=== PATIENT | female | born 1940 | race Caucasian/White ===

== ENCOUNTER → 2018-12-29 11:17 | Outpatient (CLI) | payer MEDICARE, SELFPAY ==
--- NOTE | 2018-12-29 11:23 | XR_ITS ---
EXAM: XR lumbar spine 2-3V HISTORY: Left-sided back pain ITS.REASON: LOW BACK PAIN ORDERING PHYSICIAN: Bekah Phan APRN PATIENT AGE: 78 years COMPARISON: None FINDINGS: Normal alignment. No fracture or dislocation. No lytic or blastic change. There is degenerative disc disease at L5-S1 with loss of disc space. Facet arthritic changes are present at L4-L5 and S1. Vascular calcification noted of the aorta. Soft tissue calcification noted posterior to the sacrum on the lateral view and could be due to injection granulomas. There is mild sclerosis of the right SI joint IMPRESSION: Degenerative disc disease with facet arthritic change
== END ==
PROVIDERS: PCP Nurse Practitioner Family; Visit Provider Nurse Practitioner Family
DX: M54.5 Low back pain (principal)
CPT/HCPCS: 72100

== ENCOUNTER 2020-07-25 09:36 | Emergency (ER) | payer MEDICARE, SELFPAY ==
[2020-07-25 09:55] VITALS: BP 146/78; PULSE 86; RESP 17; TEMP 36.6; O2SAT 98; BMI 28.3
--- NOTE | 2020-07-25 09:55 | XR_ITS ---
PROCEDURE: XR LUMBAR SPINE MIN 4V CLINICAL INDICATION: PAIN Back pain COMPARISON: CR XR CHEST 2V from 05/23/2019 FINDINGS: No fracture or dislocation. No lytic or blastic change. There is normal mineralization. There is a mild thoracolumbar curvature convex right. There is mild sclerosis of the SI joints. Degenerative disc disease is present at L5-S1. There is some generalized vascular calcification. Soft tissue calcifications are present and may be due to injection granulomas. Other findings:None. IMPRESSION: Degenerative disc disease L5-S1 Dictated by: Donn Iyer MD 07/25/2020 10:22 Donn Iyer MD in [place] 07/25/2020 10:22
--- NOTE | 2020-07-25 09:59 | HMH.EDUTC ---
[facility] [place] Clinical Impression: Low back pain with sciatica Qualifiers: Chronicity: unspecified Back pain laterality: left Sciatica laterality: sciatica of left side Qualified Code(s): M54.42 - Lumbago with sciatica, left side Disposition: Home, Self-Care Condition on Discharge: Good Instructions: DI for Low Back Pain, Low Back Pain, DI for Sciatica, DI for Back Pain With Sciatica Additional Instructions: *Over the counter Ibuprofen hiro 6 hours with meal as needed for pain/inflammation if your doctor has told you that you can take it *Not additional anti-inflammatory like motrin, aleve, advil with the above amount of ibuprofen. You can still take Tylenol every 4 hours as needed if you need something else for pain * moist heat every 20 minutes 3-4 times a day to affected area *Muscle relaxer every 8 hours as needed for muscle spasms but remember, it WILL cause drowsiness You cannot take it and drive, operate machinery or care for small children. *Keep this area active, no movement leads to more stiffness, However take it easy and avoid heavy lifting pushing or pulling *Follow up with you family doctor if no improvement for further treatment You was given solu medrol injection in the [facility] this may make your blood sugar be elevated for the next few days then should return to normal Make sure to follow up with your Family Doctor for further evaluation and treatment and straight to the ER if any loss of control of bowel or bladder Prescriptions: methocarbamoL [Methocarbamol 500mg Tablet] 500 mg PO BID PRN #10 tab PRN Reason: Muscle Spasm Prescription Printed Referrals: Cate Frederick [Primary Care Provider] - As needed Time of Disposition: 10:27 Medical Decision Making - Edwardo Inquiry Pt receiving controlled substance: No Edwardo was queried for this patient: No Vital Signs: 07/25/20 09:55 07/25/20 10:13 Temperature 97.8 F 97.8 F Temperature Source Oral Pulse Rate 86 Pulse Rate [Left] 86 Respiratory Rate 17 17 Blood Pressure 146/78 H Blood Pressure [Right Arm] 146/78 H Blood Pressure Mean [Right Arm] 100 Blood Pressure Source [Right Arm] Automatic Cuff Blood Pressure Position [Right Arm] Sitting 02 Sat by Pulse Oximetry 98 Orders (Tests/Meds): ORDERS Category Date Time Status XR lumbar spine min 4V Stat Exams 07/25/20 09:55 Taken - Radiology Data #1 Image(s): L-Spine Image Reviewed: Yes I have reviewed radiologist's interpretation Degenerative disc disease L5-S1 Medical Decision Narrative: Medication discussed with pharmacy, patient state that she has taken medication before without complications or reactions [facility] [place] - General Stated complaint: Lower back pain Time Seen by Provider: 07/25/20 09:59 Mode of Arrival: Ambulatory Source of Information: Patient Limitations: No Limitations Description of Symptoms (Recalled from Triage Doc. by RN): lower back pain x 1week HEENT Symptoms (Recalled from RN notes): No Resp Symptoms (Recalled from RN notes): No Skin Symptoms (Recalled from RN notes): No MS Symptoms (Recalled from RN notes): Yes Functional Status (Recalled from RN notes): wnl - History of Present Illness Provider Complaint: Patient state that she has been having pain in her lower back going into left leg that she has been seeing the Chiropractor for State that they told her they thought she had sciatic nerve pain States that it got a little better but last night and this morning it was hurting again so she come in to see if there was something that she could get for it Denies loss of control of bowel or bladder - Related Data Previous Rx's Medication Instructions Recorded methocarbamoL [Methocarbamol 500mg 500 mg PO BID PRN #10 tab 07/25/20 Tablet] Allergies Allergy/AdvReac Type Severity Reaction Status Date / Time Sulfa (Sulfonamide Allergy Unknown Unknown Verified 07/25/20 09:43 Antibiotics) allergy reaction Penicillins Allergy Verified 07/25
[2020-07-25 10:13] VITALS: BP 146/78; PULSE 86; RESP 17; TEMP 36.6; O2SAT 98
== END 2020-07-25 10:47 | disposition home or self-care (01) ==
PROVIDERS: Emergency Provider Nurse Practitioner; PCP Nurse Practitioner Family
DX: M54.42 Lumbago with sciatica, left side (principal); I25.10 Atherosclerotic heart disease of native coronary artery without angina pectoris; E11.9 Type 2 diabetes mellitus without complications; E78.5 Hyperlipidemia, unspecified; I10 Essential (primary) hypertension; F17.210 Nicotine dependence, cigarettes, uncomplicated; Z79.899 Other long term (current) drug therapy
CPT/HCPCS: 72110; 96372; 99202

== ENCOUNTER 2021-03-04 11:45 | Emergency (ER) | payer MEDICARE, SELFPAY ==
[2021-03-04 12:12] VITALS: BP 180/79; PULSE 64; RESP 16; O2SAT 100; BMI 24.3
--- NOTE | 2021-03-04 12:30 | HMH.EDUTC ---
[facility] [place] Clinical Impression: UTI (urinary tract infection) Qualifiers: Urinary tract infection type: acute cystitis Hematuria presence: with hematuria Qualified Code(s): N30.01 - Acute cystitis with hematuria Disposition: Home, Self-Care Condition on Discharge: Good Instructions: Urinary Tract Infection Additional Instructions: Increase fluids, water and not soda or tea. Can drink cranberry juice or cranberry extract. White front to back Wear cotton underwear Empty bladder after intercourse Start antibiotics immediately and make sure you take the full course although you may start to see improvement over the next 48 hours. You can eat yogurt or take probiotics to decrease diarrhea or yeast infection caused by the antibiotic Be sure to follow-up anytime for new or worsening symptoms in 48 hours for wound urine culture results be sure to let you PCP no recent urine for culture so they can request records and ensure that you have appropriate antibiotic if you are not getting better or getting worse. If symptoms worsen or do not improve return or be seen in the ER. Follow-up with primary care this week. Prescriptions: cephALEXin [Cephalexin 500mg Tab] 500 mg PO BID 7 Days #14 tab Prescription Printed Referrals: Cate Frederick [Primary Care Provider] - Time of Disposition: 12:48 Medical Decision Making - Edwardo Inquiry Pt receiving controlled substance: No Vital Signs: 03/04/21 12:12 Pulse Rate [Left] 64 Respiratory Rate 16 Blood Pressure [Right Arm] 180/79 H Blood Pressure Mean [Right Arm] 112 02 Sat by Pulse Oximetry 100 - Lab Data Lab Results 03/04/21 12:21: Urine Color Yellow, Urine Appearance Cloudy, Urine pH 5.0, Ur Specific [place] 1.010, Urine Protein 1+, Urine Glucose (UA) 4+, Urine Ketones Negative, Urine Blood 3+, Urine Nitrate Positive A, Urine Bilirubin Negative, Urine Urobilinogen 0.2, Ur Leukocyte Esterase 1+ A [facility] [place] HPI - General Chief complaint: Urgent Treatment Center Stated complaint: Poss UTI Time Seen by Provider: 03/04/21 12:30 Mode of Arrival: Ambulatory Source of Information: Patient Limitations: No Limitations Description of Symptoms (Recalled from Triage Doc. by RN): pain and burning with urination HEENT Symptoms (Recalled from RN notes): No Resp Symptoms (Recalled from RN notes): No Skin Symptoms (Recalled from RN notes): No MS Symptoms (Recalled from RN notes): No Functional Status (Recalled from RN notes): na - History of Present Illness Provider Complaint: 80 yr old female presents for buning with urination,urgency,freq and pressure for 1 week and becoming worse - Related Data Previous Rx's Medication Instructions Recorded methocarbamoL [Methocarbamol 500mg 500 mg PO BID PRN #10 tab 07/25/20 Tablet] cephALEXin [Cephalexin 500mg Tab] 500 mg PO BID 7 Days #14 tab 03/04/21 Allergies Allergy/AdvReac Type Severity Reaction Status Date / Time Sulfa (Sulfonamide Allergy Unknown Unknown Verified 07/25/20 09:43 Antibiotics) allergy reaction Penicillins Allergy Verified 07/25/20 09:43 - Worker's Comp Is this a Worker's Comp case?: No [facility] History - Hepatitis A Screen Drug use history?: No High risk sexual behaviors?: No History of sexually transmitted infection?: No Currently employed?: No Childcare worker?: No Do you have indoor plumbing?: Yes Do you have electricity?: Yes Attestation statement:: This patient has been screened for Hepatitis A risk factors. I have reviewed the patient's past medical history: Yes Medical History: Reports:: Coronary Artery Disease (stent x2), Diabetes Mellitus Type 2, Hyperlipidemia, Hypertension Denies:: Cancer, Diabetes Mellitus Type 1, Internal Pacemaker, Lung Disease, MRSA, Seizures Other Surgeries: Yes: Coronary Stent. No: Pacemaker Amputation: No Fractures: No - Social History Smoking Status: Never smoker Tobacco Type: cigarettes # Packs/Day (cigarettes): 1 Alcohol Intake: never Occup
[2021-03-04 12:41] LABS: Apearance,Urine Cloudy (Clear); Color,Urine Yellow (Yellow)
[2021-03-04 12:42] LABS: Protein,Urine 1+ (Negative)
[2021-03-04 12:43] LABS: Bilirubin,Urine Negative (Negative); Blood, Urine 3+ (Negative); Glucose,Urine (UA) 4+ (Negative); Ketones,Urine Negative (Negative); UTC Leukocyte Esterase,Urine 1+ (Negative); Urobilinogen,Urine 0.2 EU/dl (0.2)
[2021-03-04 12:44] LABS: UTC Nitrate,Urine Positive (Negative)
[2021-03-04 12:54] VITALS: BP 174/85; PULSE 69; RESP 16; TEMP 36.6
== END 2021-03-04 13:02 | disposition home or self-care (01) ==
PROVIDERS: Emergency Provider Nurse Practitioner Family; PCP Nurse Practitioner Family
DX: N30.01 Acute cystitis with hematuria (principal); I25.10 Atherosclerotic heart disease of native coronary artery without angina pectoris; E78.5 Hyperlipidemia, unspecified; I10 Essential (primary) hypertension
CPT/HCPCS: G0463; 81003; 99202

== ENCOUNTER 2021-03-12 10:39 | Emergency (ER) | payer MEDICARE, SELFPAY ==
[2021-03-12 10:40] VITALS: BP 136/77; PULSE 71; RESP 18; TEMP 36.8; O2SAT 98; BMI 25.9
[2021-03-12 11:39] LABS: Apearance,Urine Clear (Clear); Color,Urine Yellow (Yellow)
[2021-03-12 11:40] LABS: Bilirubin,Urine Negative (Negative); Blood, Urine Trace (Negative); Glucose,Urine (UA) 1000 (Negative); Ketones,Urine Negative (Negative); Protein,Urine Negative (Negative); UTC Leukocyte Esterase,Urine Trace (Negative); UTC Nitrate,Urine Negative (Negative); Urobilinogen,Urine 0.2 EU/dl (0.2)
--- NOTE | 2021-03-12 11:51 | HMH.EDUTC ---
[facility] – [place] Disposition Clinical Impression: UTI (urinary tract infection) Qualifiers: Urinary tract infection type: acute cystitis Hematuria presence: without hematuria Qualified Code(s): N30.00 - Acute cystitis without hematuria Disposition: Home, Self-Care Condition on Discharge: Good Instructions: DI for Urinary Tract Infection (UTI) Additional Instructions: Your urine has been sent for culture. Follow up with Cate Saturday or Saturday for those results. Prescriptions: levoFLOXacin [Levaquin 500mg tab] 500 mg PO DAILY 7 Days #7 tab Transmission Status: Pending to [id number] Referrals: Cate Frederick [Primary Care Provider] - Time of Disposition: 12:02 Medical Decision Making - Edwardo Inquiry Pt receiving controlled substance: No Vital Signs: 03/12/21 10:40 Temperature 98.2 F Temperature Source Oral Pulse Rate [Right] 71 Respiratory Rate 18 Blood Pressure [Right Arm] 136/77 Blood Pressure Mean [Right Arm] 96 02 Sat by Pulse Oximetry 98 - Lab Data Lab results reviewed: Yes: I reviewed the patient's lab results. Lab Results 03/12/21 11:27: Urine Color Yellow, Urine Appearance Clear, Urine pH 5.0, Ur Specific [place] 1.020, Urine Protein Negative, Urine Glucose (UA) 1000, Urine Ketones Negative, Urine Blood Trace, Urine Nitrate Negative, Urine Bilirubin Negative, Urine Urobilinogen 0.2, Ur Leukocyte Esterase Trace Orders (Tests/Meds): ORDERS Category Date Time Status Urine Culture Stat Micro 03/12/21 11:38 Ordered [facility] [place] HPI - General Stated complaint: back hurt;need to urinate freq. Time Seen by Provider: 03/12/21 11:51 Mode of Arrival: Family Vehicle Source of Information: Patient Limitations: No Limitations Description of Symptoms (Recalled from Triage Doc. by RN): Patient c/o unresolved UTI. Patient reports she has been treated for an UTI and just finhished the antibiotic. Patient here today due to symptoms not improving. HEENT Symptoms (Recalled from RN notes): No Resp Symptoms (Recalled from RN notes): No Skin Symptoms (Recalled from RN notes): No MS Symptoms (Recalled from RN notes): No Functional Status (Recalled from RN notes): NA - History of Present Illness Provider Complaint: Patient was here 1 week ago for UTI symptoms. She has pain with urination, frequency. Prior to UTI visit was given 1 pill by PCP, presumably Diflucan. Still has low back pain, vaginal pain, pain with urinating and urinary frequency. Nausea but no vomiting. No fever. No discharge, itching, odor. Onset (ago): week(s) (1) Location: genitals Radiation: back Relieving factors: none Exacerbating factors: none Associated symptoms: malaise, nausea/vomiting Treatments prior to arrival: other (Keflex) - Related Data Previous Rx's Medication Instructions Recorded methocarbamoL [Methocarbamol 500mg 500 mg PO BID PRN #10 tab 07/25/20 Tablet] cephALEXin [Cephalexin 500mg Tab] 500 mg PO BID 7 Days #14 tab 03/04/21 levoFLOXacin [Levaquin 500mg 500 mg PO DAILY 7 Days #7 tab 03/12/21 tab] Allergies Allergy/AdvReac Type Severity Reaction Status Date / Time Sulfa (Sulfonamide Allergy Unknown Unknown Verified 07/25/20 09:43 Antibiotics) allergy reaction Penicillins Allergy Verified 07/25/20 09:43 - Worker's Comp Is this a Worker's Comp case?: No Is this an [facility] Worker's Comp?: No Is this a [place] Worker's Comp?: No [facility] History - Hepatitis A Screen Drug use history?: No High risk sexual behaviors?: No History of sexually transmitted infection?: No Currently employed?: No Childcare worker?: No Do you have indoor plumbing?: Yes Do you have electricity?: Yes Attestation statement:: This patient has been screened for Hepatitis A risk factors. I have reviewed the patient's past medical history: Yes Medical History: Reports:: Coronary Artery Disease (stent x2), Diabetes Mellitus Type 2, Hyperlipidemia, Hypertension Denies:: Cancer, Diabetes Mellitus Type 1,
[2021-03-12 12:08] VITALS: BP 132/71; PULSE 78; RESP 18; TEMP 36.8; O2SAT 98
== END 2021-03-12 12:05 | disposition home or self-care (01) ==
PROVIDERS: Emergency Provider Physician Assistant; PCP Nurse Practitioner Family
DX: N30.00 Acute cystitis without hematuria (principal); I25.10 Atherosclerotic heart disease of native coronary artery without angina pectoris; E11.9 Type 2 diabetes mellitus without complications; I10 Essential (primary) hypertension; E78.5 Hyperlipidemia, unspecified; Z79.899 Other long term (current) drug therapy
CPT/HCPCS: G0463; 81003; 87086; 99202

== ENCOUNTER → 2021-03-28 14:08 | Outpatient (CLI) | payer MEDICARE, SELFPAY | PROVIDERS: Visit Provider Urology | DX: N39.0 Urinary tract infection, site not specified (principal) | CPT/HCPCS: 87086 ==

== ENCOUNTER → 2021-04-11 15:42 | Outpatient (CLI) | payer MEDICARE, SELFPAY | PROVIDERS: Visit Provider Urology | DX: N39.0 Urinary tract infection, site not specified (principal) | CPT/HCPCS: 87086 ==

== ENCOUNTER → 2021-04-19 10:47 | Outpatient (CLI) | payer MEDICARE, SELFPAY | PROVIDERS: Visit Provider Urology | DX: R30.0 Dysuria (principal); Z01.812 Encounter for preprocedural laboratory examination; Z20.822 Contact with and (suspected) exposure to COVID-19 | CPT/HCPCS: U0003 ==

== ENCOUNTER 2021-04-21 08:39 | Day surgery (SDC) | payer MEDICARE, SELFPAY ==
[2021-04-18 11:08] VITALS: BMI 26.4
[2021-04-21 08:57] VITALS: BP 141/50; PULSE 55; RESP 16; TEMP 36.6; O2SAT 100
[2021-04-21 09:37] LABS: POC Glucose,Bedside 193 (70-110)
[2021-04-21 10:24] VITALS: BP 152/75; PULSE 72; RESP 18; TEMP 36.4; O2SAT 99
--- NOTE | 2021-04-21 12:56 | P.OP_ITS ---
Date of procedure: 04/21/21 Pre-op Diagnosis:: Urethral pain Post-op Diagnosis:: Urethra and vaginal pain Procedure performed:: Cystoscopy Surgeon:: Robert Ryan MD Anesthesia: local Estimated blood loss (mL): 0 Clinical Note:: 81-year-old white female with a several week history of discomfort with and without urination. Urine cultures unremarkable for UTIs. Operative findings:: Patient is very tender and sensitive around the vaginal and urethral area. The procedure was very uncomfortable for her. Vaginal examination revealed atrophic changes. Urethra the normal anatomic position without evidence of carbuncle. Cystoscopy revealed a lot of debris in the bladder and incomplete emptying of the bladder was largely full despite patient voiding in the preoperative room. There is no evidence of mucosal abnormalities but the cystoscopy was incomplete due to lack of vision. She was very uncomfortable during the procedure. The bladder neck and urethra were normal. Urethral dilation was not performed due to her significant discomfort with cystoscopy. We discussed the findings today and we discussed her significant tenderness that is out of the norm. We discussed hot tub baths for inflammation as well as anti-inflammatories. Prescription for Pyridium and oxybutynin were given for her frequency and urgency. We will see her back next week for possible bladder installations. Operative note:: Patient taken to the cystoscopy suite after informed consent was obtained. She was placed into the frog-leg position on the stretcher. She was unable to frog- leg very much. She was then prepped and draped in standard surgical fashion and 2% lidocaine placed into the urethra. Prepping and draping and placement of anesthesia were very uncomfortable for her. After 5 minutes the flexible cystoscope introduced into the urethral meatus. Examination revealed no evidence of cystocele or rectocele or urethral abnormality. She was highly sensitive to examination however. The cystoscope was passed into the bladder with again significant amount of discomfort on the patient's part. The bladder showed a lot of debris in the bladder and incomplete emptying despite patient voiding in the preoperative room prior. I cannot visualize the entirety of the bladder. I did not detect any mucosal abnormalities or other abnormality in the portions of the bladder that I could visualize. The bladder neck and urethra were within normal limits. Scope removed. Urethral dilation was not performed due to the patient's discomfort with cystoscopy. We discussed the findings today and I placed her on a course of Pyridium and oxybutynin for her frequency and urgency. We discussed hot tub baths and anti-inflammatories for the discomfort. We will see her back next week for consideration of bladder installations. We will also repeat a bladder scan next week upon her return. Condition: stable Disposition: same day Specimens:: None Complications:: None
== END 2021-04-21 10:52 | disposition home or self-care (01) ==
LOC: OUTP 08:40
PROVIDERS: PCP Nurse Practitioner Family; Visit Provider Urology
DX: N32.89 Other specified disorders of bladder (principal); R30.0 Dysuria; R35.0 Frequency of micturition; R39.15 Urgency of urination; Z87.440 Personal history of urinary (tract) infections; Z88.0 Allergy status to penicillin; Z88.2 Allergy status to sulfonamides; Z79.899 Other long term (current) drug therapy; I25.10 Atherosclerotic heart disease of native coronary artery without angina pectoris; E11.9 Type 2 diabetes mellitus without complications; E78.5 Hyperlipidemia, unspecified; I10 Essential (primary) hypertension; Z86.73 Personal history of transient ischemic attack (TIA), and cerebral infarction without residual deficits
CPT/HCPCS: 52000; 82962

== ENCOUNTER → 2021-04-27 13:11 | Outpatient (CLI) | payer MEDICARE, SELFPAY ==
--- NOTE | 2021-04-27 13:19 | CT_ITS ---
PROCEDURE: CT ABDOMEN PELVIS WO CON CLINICAL INDICATION: uti Difficulty urinating and intermittent left flank pain COMPARISON: No exams were available for comparison TECHNIQUE: Axial images obtained with sagittal and coronal reformats. All CT scans at the facility use one or more dose reduction, viz: automated exposure control, ma/kV adjustment per patient size (including targeted exams where dose is matched to indication, i.e. head), or iterative reconstruction technique. FINDINGS: LOWER THORAX: Atelectatic changes are present in the right middle lobe. Coronary artery calcification and/or stents noted. ABDOMEN & PELVIS: There is mild dilatation of the descending thoracic aorta 3.7 x 3.5 cm. The liver has an unremarkable appearance. There is a hypodense area involving the anterior aspect of the spleen at 2.4 cm with a central calcification and may represent a hemangioma. The adrenal glands are unremarkable. There is pancreatic atrophy. The gallbladder, adrenal glands, and kidneys have an unremarkable nonenhanced appearance. No renal or ureteral calculi. No hydronephrosis. There is a mild amount of retained colonic feces. There is pancolonic diverticulosis but no evidence of diverticulitis. No evidence of appendicitis. No intestinal obstruction or free air. Prior hysterectomy. There is an air-fluid level within the urinary bladder. No focal inflammatory change or fluid collections are evident. There is a mildly prominent ventral abdominal wall hernia containing fat which extends to the left para ventral aspect of the abdomen. This is approximately 9 cm inferior to the umbilicus. The hernia orifice measures 3.6 cm No acute bony findings. There are mild degenerative changes of the SI joints in symphysis pubis. IMPRESSION: 1. Air-fluid level within the urinary bladder. This could be due to recent instrumentation/catheterization. Infection or vesico enteric fistula would be included in the differential diagnosis. 2. Hypodensity of the spleen which may be due to a hemangioma. 3. Pancolonic diverticulosis with no evidence of diverticulitis. 4. Mildly prominent infraumbilical ventral abdominal wall hernia containing fat Dictated by: Donn Iyer MD 04/28/2021 13:00 Donn Iyer MD in [place] 04/28/2021 13:00
== END ==
PROVIDERS: PCP Nurse Practitioner Family; Visit Provider Urology
DX: N39.0 Urinary tract infection, site not specified (principal); R30.0 Dysuria
CPT/HCPCS: 74176

== ENCOUNTER → 2021-05-10 11:04 | Outpatient (CLI) | payer MEDICARE, SELFPAY | PROVIDERS: Visit Provider Urology | DX: R30.0 Dysuria (principal); Z01.812 Encounter for preprocedural laboratory examination; Z20.822 Contact with and (suspected) exposure to COVID-19 | CPT/HCPCS: C9803; U0003; U0005 ==

== ENCOUNTER 2021-05-12 09:58 | Day surgery (SDC) | payer MEDICARE, SELFPAY ==
[2021-05-10 12:56] VITALS: BMI 25.0
[2021-05-12] VITALS (8 sets, daily range): BP systolic 118–166; BP diastolic 53–83; PULSE 44–62; RESP 14–18; TEMP 36.1–36.5; O2SAT 93–97
[2021-05-12 11:08] LABS: POC Glucose,Bedside 139 (70-110)
--- NOTE | 2021-05-12 11:24 | P.PN_ITS ---
[facility] Anesthesia Checklist - Patient Identification Patient Identification: Arm Band, Verbal (Name & ) - Structural Data Admitted From: Home Planned Operative Procedure/s: Cystoscopy Consent for Planned Operative Procedure(s) Verified: Yes Verified Documents: Surgical Consent - NPO Status Verified Time NPO: 00:00 - Additional verifications Anesthesia Reactions: No Hx Blood Transfusions: No Blood Transfusion Reaction: No - Cardiovascular Assessment Heart Sounds: S1 & S2 Pulse Rhythm: Regular - Airway Assessment C-Spine Mobility Assessed: Yes TMJ Mobility Assessed: Yes Dentition: Partials - Neurological Assessment Level of Consciousness: Awake, Alert, Appropriate - Anesthesia Plan Anesthesia Risk discussed: Yes ASA Class: III Anesthesia Type: General [facility] History Medical History: Reports:: Coronary Artery Disease, Diabetes Mellitus Type 2, Hyperlipidemia, Hypertension, Transient Ischemic Attacks (TIA), Urinary Tract Infection Denies:: Cancer, Diabetes Mellitus Type 1, Internal Pacemaker, Lung Disease, MRSA, Seizures *Have you ever received a pneumonia vaccine?: Yes *Have you received a flu vaccine this season?: Yes Other Medical History: Reports: Arthritis, Glaucoma. Denies: Blood Transfusion Reaction Anesthesia experience/problems:: no issues Other Surgeries: Yes: No Previous Surgery, Cardiac Catheterization, Colonoscopy, Coronary Stent, Hysterectomy-Total. No: Pacemaker Amputation: No Fractures: No - *Social History Last grade of school completed: High school graduate Smoking Status: Current every day smoker Tobacco Type: cigarettes # Packs/Day (cigarettes): 1 Alcohol Intake: never Substance Use Type: denies use *Occupational Status:: employed Housing: house Household Members: spouse *Travel in the last 8 weeks: None Family Hx:: No significant family history
--- NOTE | 2021-05-12 11:56 | SUR.PHASEI ---
finger stick blood glucose PACU 136
[2021-05-12 12:04] LABS: POC Glucose,Bedside 136 (70-110)
--- NOTE | 2021-05-12 12:55 | P.OP_ITS ---
Date of procedure: 05/12/21 Pre-op Diagnosis:: Irritable voiding symptoms Post-op Diagnosis:: Chronic cystitis Procedure performed:: Cystoscopy Surgeon:: Robert Ryan MD NURSING HOME ADMISSIONS DIRECTOR:: Other (patricia saenz) Anesthesia: MAC Estimated blood loss (mL): 0 Clinical Note:: 81-year-old white female with irritable voiding symptoms of urgency, frequency, difficulty voiding presents for cystoscopic evaluation. Recent CT shows air- fluid level in the bladder. Operative findings:: Bladder showed some chronic inflammatory findings in the bladder but no evidence of fistula. Operative note:: Patient was taken to the operating room after informed consent was obtained. She was placed on the operating table in the supine position and general anesthesia was administered. She was then placed into the dorsal lithotomy position and prepped and draped in the standard surgical fashion. Vaginal examination revealed a small cystocele. 22 Mal passed into the urethra and into the bladder. The bladder showed some tiny debris floating in the bladder. It was irrigated free from the bladder then examined in a systematic fashion. There was evidence of some inflammatory tissue along the right lateral wall as well as the left lateral wall and posteriorly. There is no evidence of a fistula. There is also some squamous metaplasia noted in the floor the bladder. The ureteral orifices in their normal anatomic position with clear efflux of urine. The bladder neck and urethra were within normal limits. After thorough investigation the scope removed and Urojet placed into the urethra. Patient transported to recovery in stable condition. I discussed the findings with the patient and the daughter. We will keep her on the Macrobid and a prescription for Uribel was given. I would like her to stop oxybutynin if she is using it is not listed on her med list today. Patient states she only drinks water and she will continue that. We will see her back in the few weeks in follow-up. Condition: stable Disposition: PACU Specimens:: None Complications:: None
== END 2021-05-12 12:47 | disposition home or self-care (01) ==
LOC: OR 10:02
PROVIDERS: PCP Nurse Practitioner Family; Visit Provider Urology
PROC: 0TJB8ZZ Inspection of Bladder, Via Natural or Artificial Opening Endoscopic (ICD-10-PCS; CPT 52000; principal; 2021-05-12 11:30)
DX: N30.20 Other chronic cystitis without hematuria (principal); I25.10 Atherosclerotic heart disease of native coronary artery without angina pectoris; E11.9 Type 2 diabetes mellitus without complications; E78.5 Hyperlipidemia, unspecified; I10 Essential (primary) hypertension; M19.90 Unspecified osteoarthritis, unspecified site; Z86.73 Personal history of transient ischemic attack (TIA), and cerebral infarction without residual deficits; Z87.440 Personal history of urinary (tract) infections; Z79.899 Other long term (current) drug therapy; Z72.0 Tobacco use; Z88.0 Allergy status to penicillin; Z88.2 Allergy status to sulfonamides
CPT/HCPCS: 52000; 81001; 82962; 87086; 87088; 87186; 99282; J2405

== ENCOUNTER 2021-05-12 18:44 | Emergency (ER) | payer MEDICARE, SELFPAY ==
--- NOTE | 2021-05-12 18:57 | PC.NURSE ---
Took pt to restroom and remained at her side, pt was able to urinate about 50mL of bright yellow urine.
[2021-05-12 19:01] VITALS: BP 146/74; PULSE 67; RESP 18; TEMP 36.9; O2SAT 98; BMI 25.8
--- NOTE | 2021-05-12 19:20 | HMH.EDGENADL ---
ED Disposition Clinical Impression: Urinary retention Disposition: Home, Self-Care Condition on Discharge: Good Instructions: How to Care for Your Bolaños Catheter -- Female Additional Instructions: Follow-up with urology clinic as scheduled on Saturday after 2 days. Return to the emergency room for any new symptoms. Take Tylenol as needed for pain. Referrals: Cate Frederick [Primary Care Provider] - - Critical Care Critical Care Time: No Attestation: On 05/12/21, the high probability of a clinically significant, sudden or life threatening deterioration of the following system(s) required my full and direct attention, intervention and personal management. The time I documented below is in addition to time spent performing reported procedures but includes the following listed in this critical care notation. Medical Decision Making - Medical Records MR Comment: There is no bladder scanner in the emergency room. She still has urinary dysuria. - Edwardo Inquiry Pt receiving controlled substance: No Edwardo was queried for this patient: No Vital Signs: 05/12/21 19:01 05/12/21 20:27 Temperature 98.4 F 98.3 F Temperature Source Oral Oral Pulse Rate 77 Pulse Rate [Right Radial] 67 Respiratory Rate 18 14 Blood Pressure 121/70 Blood Pressure [Right Arm] 146/74 H Blood Pressure Mean [Right Arm] 98 Blood Pressure Source Automatic Cuff Blood Pressure Source [Right Arm] Automatic Cuff Blood Pressure Position Sitting Blood Pressure Position [Right Arm] Sitting 02 Sat by Pulse Oximetry 98 Oxygen Delivery Method Room Air Room Air - Lab Data Lab Results 05/12/21 19:32: Urine Color Yellow, Urine Appearance Cloudy, Urine pH 6.0, Ur Specific [place] 1.020, Urine Protein 1+, Urine Glucose (UA) Negative, Urine Ketones Negative, Urine Blood 3+, Urine Nitrate Positive, Urine Bilirubin Negative, Urine Urobilinogen 0.2, Ur Leukocyte Esterase 2+ A, Urine RBC 20-50, Urine WBC 20-50 A, Ur Squamous Epith Cells Occasional, Urine Bacteria 3+ A Orders (Tests/Meds): ORDERS Category Date Time Status Urine Culture(cathed specimen) Stat Micro 05/12/21 19:32 Received General Adult HPI - General Chief complaint: PAIN Stated complaint: Urinary problems Time Seen by Provider: 05/12/21 19:20 Mode of Arrival: Ambulatory Limitations: No Limitations Description of Symptoms (Recalled from ER Triage Doc. by RN): Pt to ed with c/o pelvic pain and trouble urinating. Pt states she seen the urologist (suzanne) today and had a cystoscopy. Pt states the symptoms have not relieved. Pt reports having trouble urinating for about two weeks. Pt states she does not have pain in her abdomen, just in her pelvis. Denies back pain, nausea and vomiting. - History of Present Illness HPI narrative: 81-year-old female walked to the emergency room with urinary retention. Patient had cystoscopy today under general anesthesia. According to her she has a chronic bladder problem with dysuria and urinary frequency I did try to do the cystoscopy before and all local anesthesia but did not work so they have to do it under general anesthesia today. She went to the restaurant today and she felt she could not urinate. So she came to the emergency room. She was able to urinate 50 cc in the restroom at the emergency room. She still feeling that her bladder is full. She denies any other complaints like chest pain or nausea or vomiting or fever. - Related Data Home Medications Medication Instructions Recorded Confirmed Clopidogrel Bisulfate [Clopidogrel 75 mg PO DAILY 04/21/21 05/12/21 75mg Tab] Empagliflozin [Jardiance] 25 mg PO DAILY 04/21/21 05/12/21 Metoprolol Succinate [Metoprolol 100 mg PO DAILY 04/21/21 05/12/21 Succinate 100mg Tablet*] Nitrofurantoin Monohyd/M-Cryst 100 mg PO BID 04/21/21 05/12/21 [Nitrofurantoin [place]-Mcr 100 mg] Ondansetron [Zuplenz] 4 mg PO DAILY 04/21/21 05/12/21 Pioglitazone HCl [Actos 30mg 30 mg PO DAILY
[2021-05-12 19:40] LABS: Microscopic,Cath URINE MICROSCOPIC (MICROSCOPIC)
[2021-05-12 19:43] LABS: Appearance,Urine/Cath CLOUDY (Clear); Bilirubin,Cath Negative (Negative); Blood, Urine/Cath 3+ (Negative); Color,Urine/Cath YELLOW (Yellow); Glucose,Urine/Cath (UA) Negative (Negative); Ketones,Urine/Cath Negative (Negative); Leukocyte Esterase,Cath 2+ (Negative); Nitrate,Cath POSITIVE (Negative); Protein,Urine/Cath 1+ (Negative); Urobilinogen,Cath 0.2 EU/dl (0.2)
[2021-05-12 20:25] LABS: Bacteria,Urine/Cath 3+ /lpf; RBC,Urine/Cath 20-50 # /hpf (0-3); Squamous Epithelial Ur./Cath Occasional #/hpf (0-5); WBC,Urine/Cath 20-50 #/hpf (0-3)
[2021-05-12 20:27] VITALS: BP 121/70; PULSE 77; RESP 14; TEMP 36.8; O2SAT 99
== END 2021-05-12 20:38 | disposition home or self-care (01) ==
PROVIDERS: Emergency Provider Internal Medicine; PCP Nurse Practitioner Family
DX: N30.00 Acute cystitis without hematuria (principal); B96.1 Klebsiella pneumoniae [K. pneumoniae] as the cause of diseases classified elsewhere; E11.9 Type 2 diabetes mellitus without complications; E78.5 Hyperlipidemia, unspecified; Z79.899 Other long term (current) drug therapy
CPT/HCPCS: 81001; 87086; 87088; 87186; 99282

== ENCOUNTER → 2021-11-20 09:43 | Outpatient (CLI) | payer MEDICARE, SELFPAY ==
--- NOTE | 2021-11-20 09:48 | MR_ITS ---
FINAL REPORT CLINICAL HISTORY: DIZZINESS AND GIDDINESS. INTERMITTENT MEMORY LOSS. FINDINGS: Multiplanar MR imaging of the brain was performed without contrast. There is mild age-appropriate atrophy. There are scattered foci of increased T2 signal in the cerebral white matter that have a nonspecific appearance but likely represent mild chronic ischemic/gliotic changes. There is no evidence of intracranial hemorrhage or mass. No abnormal ventricular dilatation is identified. No abnormal extra-axial fluid collection is seen. No abnormality is seen on the diffusion weighted images. The posterior fossa and brainstem are unremarkable. Normal major vessel vascular flow voids are seen. IMPRESSION: Age-appropriate atrophy and mild chronic ischemic/gliotic changes. No acute intracranial abnormality. Reviewed, Interpreted and Dictated by Bryan Nava III, MD Transcribed by Karolyn Uriostegui Authenticated by Bryan Nava III, MD on 11/20/2021 12:33:[address] [facility]
--- NOTE | 2021-11-20 10:33 | CA_ITS ---
FINAL REPORT TECHNIQUE: Color Doppler, duplex Doppler and shultz scale sonography of the bilateral neck arterial vasculature was performed. Velocities were measured in the carotid arteries. Stenosis evaluation based on the validated velocity criteria. CLINICAL HISTORY: DIZZINESS FINDINGS: The peak systolic velocity of the right common carotid artery is 37 cm/s. The peak systolic velocity of the right internal carotid artery is 138 cm/s and end diastolic velocity 25 cm/s. The ICA/CCA ratio is 3.8. A mild to moderate amount of plaque is present. The right external carotid artery is patent. The right vertebral artery is patent with antegrade flow. The peak systolic velocity of the left common carotid artery is 44 cm/s. The peak systolic velocity of the left internal carotid artery is 79 cm/s and end diastolic velocity 20 cm/s. The ICA/CCA ratio is 1.8. A mild to moderate amount of plaque is present. The left external carotid artery is patent.The left vertebral artery is patent with antegrade flow. IMPRESSION: Less than 50% bilateral carotid stenosis. Bilateral patent vertebral arteries with antegrade flow. Reviewed, Interpreted and Dictated by Bryan Nava III, MD Transcribed by Selin Arroyo Authenticated by Bryan Nava III, MD on 11/20/2021 12:52:21 PM [facility]
== END ==
PROVIDERS: PCP Nurse Practitioner Family; Visit Provider Nurse Practitioner Family
DX: R42 Dizziness and giddiness (principal)
CPT/HCPCS: 70551; 93880

== ENCOUNTER 2022-03-15 11:58 | Emergency (ER) | payer MEDICARE, SELFPAY ==
[2022-03-15 13:14] VITALS: BP 163/76; PULSE 68; RESP 19; TEMP 36.7; O2SAT 99; BMI 24.7
--- NOTE | 2022-03-15 13:55 | HMH.EDUTC ---
[facility] [place] Disposition Clinical Impression: Viral upper respiratory tract infection Disposition: Home, Self-Care Condition on Discharge: Good Instructions: DI for Viral Upper Respiratory Infection -- Adult, DI for COVID-19 (Suspected or Confirmed ), Preventing the Spread of Coronavirus Discharge Instructions Additional Instructions: *Monitor Temp, Over the counter Motrin or Tylenol as directed/as needed Tylenol every 4 hours and Motrin every 6 hours (as long as your family doctor has told you that you can take it) for fever or pain. and straight to ER if unable to lower temp less than 101.0 after medication given *Warm salt water gargles may help to soothe the throat *Throat Lozenges *Warm fluids like tea with honey may help to soothe the throat *Sleep elevated *Humidifier/Vaporizer Follow up IMMEDIATELY for new or worsening symptoms or no Noticeable improvement over the next 48-72 hours. 911 for difficulty breathing or swallowing You were tested for today for COVID19 your test result should be back in the next 24-48 hours, you may check your results on the [facility] My Health portal Make sure to take your Vitamins Vit. C Vit D and Zinc if you can take them Referrals: Cate Frederick [Primary Care Provider] - As needed Time of Disposition: 13:58 Medical Decision Making - Edwardo Inquiry Pt receiving controlled substance: No Edwardo was queried for this patient: No Vital Signs: 03/15/22 13:14 Temperature 98.1 F Temperature Source Oral Pulse Rate [Radial] 68 Respiratory Rate 19 Blood Pressure [Right Arm] 163/76 H Blood Pressure Mean [Right Arm] 105 Blood Pressure Source [Right Arm] Automatic Cuff Blood Pressure Position [Right Arm] Sitting 02 Sat by Pulse Oximetry 99 Orders (Tests/Meds): ORDERS Category Date Time Status Covid-19 Nasal PCR ([facility]) Routine Lab 03/15/22 13:08 Ordered [facility] HPI - General Stated complaint: body aches, cough, weakness Time Seen by Provider: 03/15/22 13:25 Mode of Arrival: Ambulatory Source of Information: Patient Limitations: No Limitations Description of Symptoms (Recalled from Triage Doc. by RN): DOESNT FEEL WELL, COUGHING X 2 DAYS HEENT Symptoms (Recalled from RN notes): No Resp Symptoms (Recalled from RN notes): Yes Skin Symptoms (Recalled from RN notes): No MS Symptoms (Recalled from RN notes): No Functional Status (Recalled from RN notes): N/A - History of Present Illness Provider Complaint: Patient state that she hasnt felt well for the last couple of days and has been feeling achy having nasal congestion and cough States that she was worried that she may have COVID and wanted to get tested - Related Data Home Medications Medication Instructions Recorded Confirmed Clopidogrel Bisulfate [Clopidogrel 75 mg PO DAILY 04/21/21 05/15/21 75mg Tab] Empagliflozin [Jardiance] 25 mg PO DAILY 04/21/21 05/15/21 Metoprolol Succinate [Metoprolol 100 mg PO DAILY 04/21/21 05/15/21 Succinate 100mg Tablet*] Nitrofurantoin Monohyd/M-Cryst 100 mg PO BID 04/21/21 05/15/21 [Nitrofurantoin [place]-Mcr 100 mg] Ondansetron [Zuplenz] 4 mg PO DAILY 04/21/21 05/15/21 Pioglitazone HCl [Actos 30mg 30 mg PO DAILY 04/21/21 05/15/21 tablet] Ramipril 10 mg PO DAILY 04/21/21 05/15/21 Simvastatin [Zocor 20mg] 20 mg PO HS 04/21/21 05/15/21 Sitagliptin Phosphate [Januvia 100 mg PO DAILY 04/21/21 05/15/21 100mg tablet] Allergies Allergy/AdvReac Type Severity Reaction Status Date / Time Sulfa (Sulfonamide Allergy Unknown Unknown Verified 05/15/21 15:38 Antibiotics) allergy reaction Penicillins Allergy Verified 05/15/21 15:38 - Worker's Comp Is this a Worker's Comp case?: No [facility] History - Hepatitis A Screen Attestation statement:: This patient has been screened for Hepatitis A risk factors. I have reviewed the patient's past medical history: Yes Medical History: Reports:: Coronary Artery Disease, Diabetes Mellitus Type 2, Hyperlipidemia, Hypertension
[2022-03-15 14:01] VITALS: BP 163/76; PULSE 68; RESP 19; TEMP 36.7; O2SAT 99
== END 2022-03-15 13:45 | disposition home or self-care (01) ==
PROVIDERS: Emergency Provider Nurse Practitioner; PCP Nurse Practitioner Family
DX: U07.1 COVID-19 (principal)
CPT/HCPCS: 99212; C9803; G0463; U0003; U0005

== ENCOUNTER → 2022-08-15 14:53 | Outpatient (CLI) | payer MEDICARE, SELFPAY ==
[2022-08-15 15:18] LABS: Basophils % 0.7 % (0.1-2.0); Eosinophils # 0.1 K/mm3 (0.0-0.4); Hematocrit 39.1 % (37.0-47.0); Hemoglobin 12.5 g/dL (12.2-16.2); Lymphocytes # 1.6 K/mm3 (0.7-4.5); Lymphocytes % 30.7 % (10-50); Mean Corpuscular HGB Conc 31.9 g/dL (31.8-35.4); Mean Corpuscular Hemoglobin 30.4 pg (27.0-31.2); Mean Corpuscular Volume 95.4 fl (81-99); Mean Platelet Volume 9.6 fl (7.4-10.4); Monocytes # 0.3 K/mm3 (0.1-1.0); Neutrophils # 3.3 K/mm3 (1.8-7.8); Neutrophils % 62.6 % (37.0-80.0); Platelet Count 185 K/mm3 (142-424); Red Cell Distribution Width 14.8 % (11.5-17.5); White Blood Count 5.2 K/mm3 (4.8-10.8)
[2022-08-15 15:38] LABS: Chloride 106 mmol/L (98-107)
[2022-08-15 15:39] LABS: Sodium 141 mmol/L (136-145)
[2022-08-15 15:41] LABS: Blood Urea Nitrogen 16 mg/dl (7-17); Estimated Glomerular Filt Rate 53 ml/min (>60); GFR (African American) 64 ML/MIN (>60)
[2022-08-15 15:42] LABS: Alanine Aminotransferase 17 U/L (12-78); Albumin Level 4.4 g/dl (3.5-5.0); Alkaline Phosphatase 81 U/L (38-126); Aspartate Amino Transferase 30 U/L (14-36); Bilirubin,Direct 0.3 mg/dl (0.0-0.4); Bilirubin,Indirect 0.3 mg/dL (0.0-0.9); Bilirubin,Total 0.6 mg/dl (0.2-1.3); Bilirubin,Unconjugated 0.4 mg/dL (0.0-1.1); Calcium 8.8 mg/dl (8.4-10.2); Carbon Dioxide 26 mmol/L (22.0-30.0); Cholesterol 143 mg/dl (140-200); Glucose 209 mg/dl (74-100); Total Protein,Serum 7.2 g/dl (6.3-8.2); Triglycerides 137 mg/dl (30-150); VLDL Cholesterol 27 mg/dL (0-40)
[2022-08-15 15:43] LABS: Chol/HDL Ratio 2.4 (1-3.5); HDL Cholesterol 59 mg/dl (40-60)
[2022-08-15 15:58] LABS: Free T4 (Free Thyroxine) 1.16 ng/dl (0.78-2.19)
[2022-08-15 16:13] LABS: Thyroid Stimulating Hormone 0.96 uIU/mL (0.465-4.68)
== END ==
PROVIDERS: PCP Nurse Practitioner Family; Visit Provider Nurse Practitioner
DX: I25.10 Atherosclerotic heart disease of native coronary artery without angina pectoris (principal); R94.31 Abnormal electrocardiogram [ECG] [EKG]; Z01.810 Encounter for preprocedural cardiovascular examination; Z95.5 Presence of coronary angioplasty implant and graft; R00.2 Palpitations
CPT/HCPCS: 36415; 80048; 80061; 80076; 83735; 84439; 84443; 85025; 93225; 93226

== ENCOUNTER → 2023-05-17 13:36 | Outpatient (CLI) | payer MEDICARE, SELFPAY | PROVIDERS: PCP Nurse Practitioner Family; Visit Provider Internal Medicine | DX: N39.0 Urinary tract infection, site not specified (principal); B96.1 Klebsiella pneumoniae [K. pneumoniae] as the cause of diseases classified elsewhere | CPT/HCPCS: 36415; 87086; 87088; 87186 ==

== ENCOUNTER 2024-05-03 14:06 | Inpatient (IN) | payer MEDICARE, SELFPAY ==
[2024-05-03] VITALS (10 sets, daily range): BP systolic 103–149; BP diastolic 50–71; PULSE 44–52; RESP 13–22; TEMP 36.4–36.6; O2SAT 93–99; BMI 24.7; BMI 23.9
--- NOTE | 2024-05-03 14:04 | ECG_ITS ---
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
--- NOTE | 2024-05-03 14:09 | ED_ITS ---
<Statement entered by Saul Fajardo MD - 05/03/24 18:26> I was consulted by the HERMINIA, and we discussed the complexity of the problems being addressed. I approved the treatment and management plan for this patient's care in the emergency department, thus performing a substantive portion of the medical decision making. Patient is medically complex with symptomatic dyspnea, ultimately she has multifactorial cause for this, she has unmanaged heart failure of undetermined chronicity, symptomatic bradycardia with a junctional rhythm on EKG, chronic DVT with collateral circulation, questionable urinary tract infection with a very poor specimen in the urine. [id number] ultrasound conducted by Saul Fajardo. Using the phased array probe parasternal long axis was identified, patient has a trace pericardial effusion, decreased ejection fraction. There are adjacent B-lines in the lung williamson to suggest fluid overload in the setting of heart failure. Patient tolerated the procedure well. Images were saved to apartment archive. Images were technically adequate and did not necessitate further imaging. Saul Fajardo MD Discharge Plan Disposition Patient Disposition: Admitted Clinical Impressions Clinical Impression: CHF (congestive heart failure), Pulmonary arterial hypertension, UTI (urinary tract infection), Junctional bradycardia, GTZ (dyspnea on exertion), DVT (deep venous thrombosis) Discharge ED Provider: Saul Fajardo HPI <KIRSTEN Silva - Last Filed: 05/03/24 18:22> General Chief Complaint: Chest Pain Stated Complaint: cp Time Seen by Provider: 05/03/24 14:33 History of Present Illness HPI narrative: Patient presents for evaluation of dyspnea on exertion. Patient has a 2-week history of dyspnea on exertion. Patient has a history remotely of both of stroke and heart attack status post PCI with stent, an aortic heart murmur , and reportedly a new diagnosis of dementia and started on Exelon and donezepil in the last week. Patient reports feeling winded even with light exertion and difficulty catching her breath but denies actual chest pain. She states that she feels like she is smothering .. Related Data Home Medications ?Medication ?Instructions ?Recorded ?Confirmed clopidogrel 75 mg tablet 75 mg PO DAILY Blood thinner 04/21/21 05/03/24 empagliflozin 25 mg tablet 25 mg PO DAILY Diabetes 04/21/21 05/03/24 metoprolol succinate 100 mg 100 mg PO DAILY High blood pressure 04/21/21 05/03/24 tablet,extended release 24 hr ondansetron 4 mg oral soluble film 4 mg PO DAILY Nausea & vomiting 04/21/21 05/03/24 pioglitazone 30 mg tablet 30 mg PO DAILY Diabetes 04/21/21 05/03/24 ramipril 10 mg capsule 10 mg PO DAILY High blood pressure 04/21/21 05/03/24 simvastatin 20 mg tablet 20 mg PO HS Cholesterol 04/21/21 05/03/24 linagliptin 5 mg tablet (Tradjenta) 5 mg PO DAILY 08/15/22 05/03/24 Allergies Allergy/AdvReac Type Severity Reaction Status Date / Time Sulfa (Sulfonamide Allergy Unknown Unknown Verified 08/15/22 13:38 Antibiotics) allergy reaction Penicillins Allergy Verified 08/15/22 13:38 PFSH <KIRSTEN Silva - Last Filed: 05/03/24 18:22> FORMERLY [facility] Disclaimer: The information contained in this section may have been updated after the patient was seen, as this information can be updated by other users. Medical History (Updated 05/03/24 @ 18:22 by KIRSTEN Silva) COPD (chronic obstructive pulmonary disease) Hyperlipidemia Hypertension Aortic heart murmur Coronary artery disease Abnormal electrocardiogram [ECG] [EKG] Encounter for pre-operative cardiovascular clearance Surgical History (Updated 08/15/22 @ 14:07 by Miracle Strange RN) History of coronary artery stent placement Family History (Updated 05/03/24 @ 18:16 by Liliana Peters RN) Father Family history of myocardial infarction Social History Smoking Status: Current some day smoker tobacco type: cigarettes packs per day: 1 second hand exposure: Yes alcohol intake: never substance use type: denies use current occupational status: other Travel in the last 8 weeks: None household members: spouse housing: house current occupation: [employer] current occupational exposures/hazards: No caffeine: Yes <KIRSTEN Silva - Last Filed: 05/03/24 18:22> ROS Obtained: Yes Systems reviewed as appropriate & no additional complaints except as documented Physical Exam <KIRSTEN Silva - Last Filed: 05/03/24 18:22> General General appearance: alert and in no apparent distress Respiratory Respiratory exam: Present normal lung sounds bilaterally Cardiovascular Cardiovascular exam: Present regular rate and normal rhythm Neurological Exam Neurological exam: Present alert, oriented X3 and CN II-XII intact HEART Score <KIRSTEN Silva - Last Filed: 05/03/24 18:22> HEART Score HEART Score assessment performed?: Yes History (anamnesis): Slightly suspicious ECG: Non-specific disturbance Age: >65 years Risk factors: Atherosclerosis history Troponin: </= normal limit HEART Score: 5 Critical Care <KIRSTEN Silva - Last Filed: 05/03/24 18:22> Critical Care Time Critical Care Time: No Medical Decision Making <KIRSTEN Silva - Last Filed: 05/03/24 18:22> Medical Records Medical records reviewed: Yes I reviewed the patient's medical records. Edwardo Inquiry Pt receiving controlled substance: No Vital Signs Vital Signs: 05/03/24 14:09 05/03/24 14:30 05/03/24 15:32 Temperature 97.6 F Temperature Source Oral Pulse Rate 52 L 46 L Pulse Rate [Left Radial] 50 L Respiratory Rate 13 19 22 Blood Pressure 125/69 116/51 L Blood Pressure [Right Arm] 149/71 H Blood Pressure Mean [Right Arm] 97 02 Sat by Pulse Oximetry 98 99 96 Oxygen Delivery Method Room Air Room Air 05/03/24 16:01 05/03/24 16:31 05/03/24 17:31 Temperature Temperature Source Pulse Rate 48 L 44 L 51 L Pulse Rate [Left Radial] Respiratory Rate 14 14 14 Blood Pressure 115/51 L 103/70 L 111/50 L Blood Pressure [Right Arm] Blood Pressure Mean [Right Arm] 02 Sat by Pulse Oximetry 97 99 93 L Oxygen Delivery Method Room Air Room Air Room Air 05/03/24 18:01 Temperature 97.6 F Temperature Source Pulse Rate 46 L Pulse Rate [Left Radial] Respiratory Rate 16 Blood Pressure 111/50 L Blood Pressure [Right Arm] Blood Pressure Mean [Right Arm] 02 Sat by Pulse Oximetry Oxygen Delivery Method Lab Data Lab results reviewed: Yes I reviewed the patient's lab results. Labs: Lab Results 05/03/24 14:10: WBC 6.2, RBC 4.19 L, Hgb 11.6 L, Hct 37.3, MCV 89.0, MCH 27.7, M CHC 31.1 L, RDW 17.3, Plt Count 167, MPV 9.9, Neut % (Auto) 58.6, Lymph % (Auto) 34.4, [place] % (Auto) 5.3, Eos % (Auto) 0.5, Baso % (Auto) 1.2, Neut # (Auto) 3.6, Lymph # (Auto) 2.1, [place] # (Auto) 0.3, Eos # (Auto) 0.0, Baso # (Auto) 0.1, Sodium 138, Potassium 4.6, Chloride 108 H, Carbon Dioxide 21 L, Anion Gap 13.6, BUN 16, Creatinine 1.40 H, Estimated Creat Clear 29, Estimated GFR 36 L, Est GFR ( Amer) 43 L, Glucose 161 H, Calcium 8.3 L, Total Bilirubin 0.7, AST 69 H , ALT 26, Alkaline Phosphatase 82, Troponin I < 0.01, NT-Pro-B Natriuret Pep 5690 H, Total Protein 7.1, Albumin 4.1, Globulin 3.0, Albumin/Globulin Ratio 1.4 05/03/24 17:23: Urine Color Yellow, Urine Appearance Clear, Urine pH 5.5, Ur Specific [place] 1.020, Urine Protein Negative, Urine Glucose (UA) Negative, Urine Ketones Negative, Urine Blood Negative, Urine Nitrate Positive, Urine Bilirubin Negative, Urine Urobilinogen 0.2, Ur Leukocyte Esterase 1+ A, Urine RBC Occasional, Urine WBC 10-20, Ur Squamous Epith Cells 20-50, Urine Bacteria 2+ 05/03/24 14:10 05/03/24 14:10 Response Orders (Tests/Meds): ED MEDICATIONS Generic Name Dose Route Start Last Admin Trade Name Freq PRN Reason Stop Dose Admin Ceftriaxone Sodium 1 gm/ 50 mls @ 100 mls/hr 05/03/24 17:53 Sodium Chloride IV 05/03/24 18:22 ONCE ONE Discontinued Medications Generic Name Dose Route Start Last Admin Trade Name Freq PRN Reason Stop Dose Admin Furosemide 60 mg 05/03/24 16:17 05/03/24 16:33 Furosemide 40mg/4ml Vial IV 05/03/24 16:18 60 mg ONCE ONE Administration Iopamidol 80 ml 05/03/24 16:07 05/03/24 16:11 Iopamidol-370 (76%);100ml Bottle IV 05/03/24 16:08 80 ml ONCE ONE Administration Sodium Chloride 10 ml 05/03/24 16:07 05/03/24 16:11 Sodium Chloride 0.9% 10ml Syr (Rad Only) IV 05/03/24 16:08 10 ml ONCE ONE Administration Sodium Chloride 50 ml 05/03/24 16:07 05/03/24 16:11 0.9 % Sodium Chloride 50 Ml Vial IV 05/03/24 16:08 50 ml ONCE ONE Administration ORDERS Category Date Time Status CT angio chest - dissection Stat Cat Scan 05/03/24 15:48 Completed Chest XR 2 view (NOT portable) [XR chest 2V] Stat Exams 05/03/24 14:32 Completed POCUS Point of Care (ER Only) Stat Exams 05/03/24 15:35 Completed BNP [NT Pro Brain Natriuretic Pep.] Stat Lab 05/03/24 14:10 Completed CBC w/Auto Diff [Complete Blood Count Auto Diff] Stat Lab 05/03/24 14:10 Completed CMP [Comprehensive Metabolic Panel] Stat Lab 05/03/24 14:10 Completed Trop I [Troponin I] Stat Lab 05/03/24 14:10 Completed Troponin I Q3H Lab 05/03/24 17:40 Received Troponin I Q3H Lab 05/03/24 20:45 Ordered UA [Urinalysis and Microscopic] Stat Lab 05/03/24 17:23 Completed Urine Culture Stat Micro 05/03/24 17:23 Received MDM Narrative Medical Decision Narrative: In summary patient is a 84-year-old female who presents to the emergency department for evaluation of dyspnea on exertion additionally patient's daughter relates that patient has had periods of confusion intermittently over the last 2 weeks as well.. Patient is normotensive with a blood pressure of 149/71 bradycardic with a heart rate of 50 on the bedside monitor satting at 98% on room air breathing 13 times a minute upon arrival, afebrile. Physical exam is unremarkable and nonfocal including normal breath sounds normal heart sounds [place] Coma Score 15 no peripheral edema. Differential diagnosis includes CHF versus ACS versus symptomatic bradycardia versus UTI etc. Initial workup will be conducted with plain film chest x-ray twelve-lead EKG hematologic labs urinalysis. Initial interventions were considered however patient has no intervenable findings currently thus is deferred until workup. Initial workup reviewed by me shows that she has a creatinine of 1.4 BUN of 16 and a GFR of 36 all of which are new to the patient. 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 Given that I had an interactive discussion about patient management with cardiology. Patient will be evaluated by cardiology Macario for possible pacemaker or further cardiac workup. I then had an interactive discussion with hospital medicine regarding patient management and she will be admitted and started on Lovenox prophylactically given her renal function and then admitted for further evaluation and care. <Saul Fajardo MD - Last Filed: 05/03/24 15:40> Vital Signs Vital Signs: 05/03/24 14:09 05/03/24 14:30 05/03/24 15:32 Temperature 97.6 F Temperature Source Oral Pulse Rate 52 L 46 L Pulse Rate [Left Radial] 50 L Respiratory Rate 13 19 22 Blood Pressure 125/69 116/51 L Blood Pressure [Right Arm] 149/71 H Blood Pressure Mean [Right Arm] 97 02 Sat by Pulse Oximetry 98 99 96 Oxygen Delivery Method Room Air Room Air 05/03/24 16:01 05/03/24 16:31 05/03/24 17:31 Temperature Temperature Source Pulse Rate 48 L 44 L 51 L Pulse Rate [Left Radial] Respiratory Rate 14 14 14 Blood Pressure 115/51 L 103/70 L 111/50 L Blood Pressure [Right Arm] Blood Pressure Mean [Right Arm] 02 Sat by Pulse Oximetry 97 99 93 L Oxygen Delivery Method Room Air Room Air Room Air 05/03/24 18:01 Temperature 97.6 F Temperature Source Pulse Rate 46 L Pulse Rate [Left Radial] Respiratory Rate 16 Blood Pressure 111/50 L Blood Pressure [Right Arm] Blood Pressure Mean [Right Arm] 02 Sat by Pulse Oximetry Oxygen Delivery Method Lab Data Labs: Lab Results 05/03/24 14:10: WBC 6.2, RBC 4.19 L, Hgb 11.6 L, Hct 37.3, MCV 89.0, MCH 27.7, M CHC 31.1 L, RDW 17.3, Plt Count 167, MPV 9.9, Neut % (Auto) 58.6, Lymph % (Auto) 34.4, [place] % (Auto) 5.3, Eos % (Auto) 0.5, Baso % (Auto) 1.2, Neut # (Auto) 3.6, Lymph # (Auto) 2.1, [place] # (Auto) 0.3, Eos # (Auto) 0.0, Baso # (Auto) 0.1, Sodium 138, Potassium 4.6, Chloride 108 H, Carbon Dioxide 21 L, Anion Gap 13.6, BUN 16, Creatinine 1.40 H, Estimated Creat Clear 29, Estimated GFR 36 L, Est GFR ( Amer) 43 L, Glucose 161 H, Calcium 8.3 L, Total Bilirubin 0.7, AST 69 H , ALT 26, Alkaline Phosphatase 82, Troponin I < 0.01, NT-Pro-B Natriuret Pep 5690 H, Total Protein 7.1, Albumin 4.1, Globulin 3.0, Albumin/Globulin Ratio 1.4 05/03/24 17:23: Urine Color Yellow, Urine Appearance Clear, Urine pH 5.5, Ur Specific [place] 1.020, Urine Protein Negative, Urine Glucose (UA) Negative, Urine Ketones Negative, Urine Blood Negative, Urine Nitrate Positive, Urine Bilirubin Negative, Urine Urobilinogen 0.2, Ur Leukocyte Esterase 1+ A, Urine RBC Occasional, Urine WBC 10-20, Ur Squamous Epith Cells 20-50, Urine Bacteria 2+ Response Orders (Tests/Meds): ED MEDICATIONS Generic Name Dose Route Start Last Admin Trade Name Freq PRN Reason Stop Dose Admin Ceftriaxone Sodium 1 gm/ 50 mls @ 100 mls/hr 05/03/24 17:53 Sodium Chloride IV 05/03/24 18:22 ONCE ONE Discontinued Medications Generic Name Dose Route Start Last Admin Trade Name Freq PRN Reason Stop Dose Admin Furosemide 60 mg 05/03/24 16:17 05/03/24 16:33 Furosemide 40mg/4ml Vial IV 05/03/24 16:18 60 mg ONCE ONE Administration Iopamidol 80 ml 05/03/24 16:07 05/03/24 16:11 Iopamidol-370 (76%);100ml Bottle IV 05/03/24 16:08 80 ml ONCE ONE Administration Sodium Chloride 10 ml 05/03/24 16:07 05/03/24 16:11 Sodium Chloride 0.9% 10ml Syr (Rad Only) IV 05/03/24 16:08 10 ml ONCE ONE Administration Sodium Chloride 50 ml 05/03/24 16:07 05/03/24 16:11 0.9 % Sodium Chloride 50 Ml Vial IV 05/03/24 16:08 50 ml ONCE ONE Administration ORDERS Category Date Time Status CT angio chest - dissection Stat Cat Scan 05/03/24 15:48 Completed Chest XR 2 view (NOT portable) [XR chest 2V] Stat Exams 05/03/24 14:32 Completed POCUS Point of Care (ER Only) Stat Exams 05/03/24 15:35 Completed BNP [NT Pro Brain Natriuretic Pep.] Stat Lab 05/03/24 14:10 Completed CBC w/Auto Diff [Complete Blood Count Auto Diff] Stat Lab 05/03/24 14:10 Completed CMP [Comprehensive Metabolic Panel] Stat Lab 05/03/24 14:10 Completed Trop I [Troponin I] Stat Lab 05/03/24 14:10 Completed Troponin I Q3H Lab 05/03/24 17:40 Received Troponin I Q3H Lab 05/03/24 20:45 Ordered UA [Urinalysis and Microscopic] Stat Lab 05/03/24 17:23 Completed Urine Culture Stat Micro 05/03/24 17:23 Received ECG Data Tracing #1: ECG Narrative: Independently turbid by me rate is 52, rhythm is regular, junctional bradycardia with retrograde P waves. QTc 213, no ST elevation in anatomical contiguous leads.
--- NOTE | 2024-05-03 14:32 | XR_ITS ---
PROCEDURE INFORMATION: Exam: XR Chest Exam date and time: 05/03/2024 2:52 PM Age: 84 years old Clinical indication: Dyspnea TECHNIQUE: Imaging protocol: Radiologic exam of the chest. Views: 2 views. COMPARISON: CR XR CHEST 2V 05/23/2019 2:04 PM FINDINGS: Lungs: No evidence of airspace infiltrate. No pulmonary edema. Pleural spaces: No visible pleural effusion. No pneumothorax. Heart/Mediastinum: Cardiomediastinal silhouette is unchanged from prior exam, accounting for differences in technique. Bones/joints: No evidence of acute osseous abnormality. IMPRESSION: No evidence of acute cardiopulmonary disease.
[2024-05-03 14:42] LABS: Albumin Level 4.1 g/dl (3.5-5.0); Basophils # 0.1 K/mm3 (0-0.2); Basophils % 1.2 % (0.1-2.0); Chloride 108 mmol/L (98-107); Eosinophils % 0.5 % (0.1-12.0); Hematocrit 37.3 % (37.0-47.0); Hemoglobin 11.6 g/dL (12.2-16.2); Lymphocytes # 2.1 K/mm3 (0.7-4.5); Lymphocytes % 34.4 % (10-50); Mean Corpuscular HGB Conc 31.1 g/dL (31.8-35.4); Mean Corpuscular Hemoglobin 27.7 pg (27.0-31.2); Mean Platelet Volume 9.9 fl (7.4-10.4); Monocytes # 0.3 K/mm3 (0.1-1.0); Monocytes % 5.3 % (1.7-9.3); Neutrophils # 3.6 K/mm3 (1.8-7.8); Neutrophils % 58.6 % (37.0-80.0); Platelet Count 167 K/mm3 (142-424); Potassium 4.6 mmoL/L (3.5-5.1); Red Blood Count 4.19 M/mm3 (4.20-5.40); Red Cell Distribution Width 17.3 % (11.5-17.5); Sodium 138 mmol/L (136-145); White Blood Count 6.2 K/mm3 (4.8-10.8)
[2024-05-03 14:45] LABS: Alanine Aminotransferase 26 U/L (12-78); Albumin/Globulin Ratio 1.4 (1.1-1.8); Alkaline Phosphatase 82 U/L (38-126); Anion Gap 13.6 mEq/L (5-15); Aspartate Amino Transferase 69 U/L (14-36); Bilirubin,Total 0.7 mg/dl (0.2-1.3); Blood Urea Nitrogen 16 mg/dl (7-17); Calcium 8.3 mg/dl (8.4-10.2); Carbon Dioxide 21 mmol/L (22.0-30.0); Creatinine Clearance Estimated 29 mL/min (50-200); Estimated Glomerular Filt Rate 36 ml/min (>60); GFR (African American) 43 ML/MIN (>60); Glucose 161 mg/dl (74-100); Total Protein,Serum 7.1 g/dl (6.3-8.2)
[2024-05-03 14:54] LABS: NT Pro Brain Natriuretic Pep. 5690 pg/mL (0-450)
[2024-05-03 15:00] LABS: Troponin I < 0.01 ng/ml (0.00-0.034)
--- NOTE | 2024-05-03 15:48 | CT_ITS ---
PROCEDURE INFORMATION: Exam: CTA Chest With Contrast Exam date and time: 05/03/2024 4:10 PM Age: 84 years old Clinical indication: Dyspnea; Additional info: Dyspnea on exertion TECHNIQUE: Imaging protocol: Computed tomographic angiography of the chest with contrast. Exam focused on the arteries. 3D rendering (Not supervised by radiologist): MIP and/or 3D reconstructed images were created by the technologist. Radiation optimization: All CT scans at this facility use at least one of these dose optimization techniques: automated exposure control; mA and/or kV adjustment per patient size (includes targeted exams where dose is matched to clinical indication); or iterative reconstruction. Contrast material: ISO 370; Contrast volume: 80 ml; Contrast route: INTRAVENOUS (IV); COMPARISON: 1. CR XR CHEST 2V 05/03/2024 2:[address] ABDOMEN PELVIS WO CON 04/27/2021 2:31 PM FINDINGS: Limitations: Respiratory motion artifact severely degrades images, limiting sensitivity of exam. Pulmonary arteries: Dilated central pulmonary arteries compatible with longstanding pulmonary arterial hypertension. No large central pulmonary emboli. Relatively poor opacification of a few subsegmental pulmonary arteries in the basal segments of the bilateral lower lobes, nonspecific in the setting of pulmonary hypertension. No definite pulmonary emboli are demonstrated, noting technically inadequate study to definitively exclude subsegmental pulmonary emboli. Aorta: Fusiform aneurysmal dilation of the descending aorta measuring 4.2 cm in maximal diameter. The partially visualized portion of the descending aorta on 04/27/2021 CT abdomen/pelvis appears grossly unchanged. No prior chest CT available for direct comparison. 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 Lungs: No evidence of acute airspace infiltrate. No pulmonary edema. Calcified pulmonary granuloma in the left lower lobe consistent with chronic sequelae of prior granulomatous disease. Plate-like subsegmental atelectasis/scarring in the right middle lobe Pleural spaces: No pneumothorax. No pleural effusion. Heart: Biatrial enlargement suggestive of diastolic heart dysfunction. Mitral and aortic valve calcifications. No pericardial effusion. Coronary arteries: Three-vessel calcific coronary artery disease. Lymph nodes: No enlarged lymph nodes by CT criteria. Bones/joints: Chronic compression fracture deformity in the L1 with 50% vertebral body height loss and 4 mm retropulsion of the superior endplate, new since most recent available prior imaging performed on 04/27/2021. No evidence of acute osseous abnormality. Soft tissues: Unremarkable. IMPRESSION: 1. No evidence of acute cardiopulmonary disease. No evidence of pulmonary emboli, noting technically inadequate study for definitive exclusion of subsegmental pulmonary emboli. 2. 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 A filling defect/thrombus extends from the left subclavian vein into the left internal jugular vein, age indeterminate. 3. 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 4. Dilated central pulmonary arteries compatible with longstanding pulmonary arterial hypertension. 5. Biatrial enlargement suggestive of diastolic heart dysfunction. 6. Mitral and aortic valve calcifications. 7. Three-vessel calcific coronary artery disease. 8. Chronic compression fracture deformity in the L1 with 50% vertebral body height loss and 4 mm retropulsion of the superior endplate, new since most recent available prior imaging performed on 04/27/2021.
[2024-05-03] MEDS: SODIUM CHLORIDE 0.9% 10ML SYR (RAD ONLY) 10 ML IV (16:11)
[2024-05-03] MEDS: 0.9 % SODIUM CHLORIDE 50 ML VIAL IV (16:11)
[2024-05-03] MEDS: IOPAMIDOL-370 (76%);100ML BOTTLE 80 ML IV (16:11)
[2024-05-03] MEDS: FUROSEMIDE 40MG/4ML VIAL 60 MG IV (16:33)
--- NOTE | 2024-05-03 17:24 | PC.NURSE ---
paged for pt
[2024-05-03 17:27] LABS: Microscopic, Urine URINE MICROSCOPIC (MICROSCOPIC)
--- NOTE | 2024-05-03 17:31 | PC.NURSE ---
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
[2024-05-03 17:33] LABS: Appearance,Urine CLEAR (Clear); Bilirubin,Urine Negative (Negative); Blood, Urine Negative (Negative); Color,Urine YELLOW (Yellow); Glucose,Urine (UA) Negative (Negative); Ketones,Urine Negative (Negative); Leukocyte Esterase,Urine 1+ (Negative); Nitrate,Urine POSITIVE (Negative); PH,Urine 5.5 (5.0-8.5); Protein,Urine Negative (Negative); Urobilinogen,Urine 0.2 EU/dl (0.2)
[2024-05-03 17:40] LABS: Bacteria,Urine 2+ /lpf; RBC,Urine Occasional #/hpf (0-3); Squamous Epithelial Cell,Urine 20-50 #/hpf (0-5)
--- NOTE | 2024-05-03 17:41 | PC.NURSE ---
troponin collected and sent to LAB
[2024-05-03] MEDS: CEFTRIAXONE 1 GM 1 GM in 0.9 % SODIUM CHLORIDE 50 ML IV (18:22)
[2024-05-03 18:30] LABS: Hemoglobin A1C 6.8 % (4.0-6.0)
[2024-05-03 18:38] LABS: Troponin I < 0.01 ng/ml (0.00-0.034)
[2024-05-03] MEDS: ATORVASTATIN 10MG TABLET 10 MG PO (20:39)
[2024-05-03] MEDS: DONEPEZIL 5MG TAB 5 MG PO (20:39)
[2024-05-03] MEDS: AMITRIPTYLINE 50MG TABLET 50 MG PO (20:40)
--- NOTE | 2024-05-03 20:48 | P.HP_ITS ---
History of Present Illness *Admission Date: 05/03/24 *Reason for visit:: Shortness of breath dizziness with abnormal heart rate *History of present illness: This 84-year-old patient who lives alone, noted over the past 2 weeks that on arising her ears would get hot she would get dizzy and feel weak. This would improve and she was able to do things but became more short of breath. 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 Dr. Ovalle spoke with the ER physician and agreed that she needed to be admitted. With plan for cardiology consult and potential echocardiogram in the a.m.. Patient presently in the ICU in no distress alert oriented and eating without any difficulty. On monitor still shows rate of junctional at 55 bpm, patient asymptomatic while lying in bed with head up [facility] Disclaimer: The information contained in this section may have been updated after the patient was seen, as this information can be updated by other users. Medical History (Updated 05/04/24 @ 14:39 by Bonnie Roldan APRN) Abnormal echocardiogram Diabetes mellitus Symptomatic bradycardia Dizziness Shortness of Breath Atypical angina COPD (chronic obstructive pulmonary disease) Hyperlipidemia Hypertension Aortic heart murmur Coronary artery disease Abnormal electrocardiogram [ECG] [EKG] Encounter for pre-operative cardiovascular clearance Surgical History History of coronary artery stent placement Family History Father Family history of myocardial infarction Social History Smoking Status: Current some day smoker tobacco type: cigarettes packs per day: 1 second hand exposure: Yes alcohol intake: never substance use type: denies use current occupational status: other Travel in the last 8 weeks: None household members: spouse housing: house current occupation: [employer] current occupational exposures/hazards: No caffeine: Yes Review of Systems Review of Systems Review of systems:: pertinent systems reviewed and negative unless documented below Review of systems (narrative): Old records have been reviewed, patient noted no history of diabetes, Constitutional Constitutional: Reports as per HPI and Reports lethargy Comments: States that she has just really has not felt well for the past 2 weeks. Eyes Eyes: Reports system reviewed and no additional complaints, except as documented ENT Ears, Nose, Mouth, and Throat: Reports system reviewed and no additional complaints, except as documented *Cardiovascular Cardiovascular: Reports as per HPI, Reports dyspnea, Reports dyspnea on exertion and Reports lightheadedness *Respiratory Respiratory: Reports dyspnea and Reports dyspnea on exertion *Gastrointestinal Gastrointestinal: Reports as per HPI Comments: Patient denies nausea and vomiting states that she does not eat a lot that she only has occasional bowel movements but does not feel constipated *Genitourinary Genitourinary: Reports system reviewed and no additional complaints, except as documented, Reports as per HPI and Reports nocturia Comments: Patient has a history of being worked up a couple years ago for overactive bladder. She still wears a pad inside of her underwear for some leakage but states that she is able to control her urine well *Musculoskeletal Musculoskeletal: Reports muscle weakness Integumentary/Breasts Skin/Breast: Reports system reviewed and no additional complaints, except as documented Comments: Patient denied any chest wall or breast issues, denied any skin breakdown or chronic lesions *Neurologic Neurologic: Reports as per HPI Psychiatric Psychiatric: Reports as per HPI Comments: Patient being treated with medication for memory Endocrine Endocrine: Reports as per HPI Hematologic/Lymphatic Hematologic/Lymphatic: Reports as per HPI Allergic/Immunologic Allergic/Immunologic: Reports as per HPI Meds Home Medications and Allergies Home Medications ?Medication ?Instructions ?Recorded ?Confirmed ?Type clopidogrel 75 mg tablet 75 mg PO DAILY 04/21/21 05/03/24 History linagliptin 5 mg tablet (Tradjenta) 5 mg PO DAILY 08/15/22 05/03/24 History amitriptyline 50 mg tablet 50 mg PO HS 05/03/24 05/04/24 History atorvastatin 10 mg tablet 10 mg PO HS 05/03/24 05/03/24 History donepezil 5 mg tablet 5 mg PO HS 05/03/24 05/03/24 History furosemide 20 mg tablet 20 mg PO DAILY 05/03/24 05/03/24 History losartan 50 mg tablet 50 mg PO DAILY 05/03/24 05/03/24 History rivastigmine 4.6 mg/24 hour 4.6 mg transdermal DAILY 05/03/24 05/03/24 History transdermal patch (Exelon Patch) hydrocortisone 2.5 % topical cream 1 applic topical BID 05/04/24 05/04/24 History with perineal applicator latanoprost 0.005 % eye drops 1 drp Eye-Both HS 05/04/24 05/04/24 History New Prescriptions to Start Prescriptions: Allergies Allergy/AdvReac Type Severity Reaction Status Date / Time Sulfa (Sulfonamide Allergy Unknown Unknown Verified 08/15/22 13:38 Antibiotics) allergy reaction Penicillins Allergy Verified 08/15/22 13:38 Exam Data for Last 24 hours Vital signs and Labs for Last 24 Hours: Temp Pulse Resp BP Pulse Ox O2 Del Method 97.7 F 48 L 18 119/63 97 Room Air 05/03/24 20:00 05/03/24 20:00 05/03/24 20:00 05/03/24 20:00 05/03/24 20:00 05/03/24 20:00 Laboratory Results - last 24 hr 05/03/24 14:10: WBC 6.2, RBC 4.19 L, Hgb 11.6 L, Hct 37.3, MCV 89.0, MCH 27.7, MCHC 31.1 L, RDW 17.3, Plt Count 167, MPV 9.9, Neut % (Auto) 58.6, Lymph % (Auto) 34.4, [place] % (Auto) 5.3, Eos % (Auto) 0.5, Baso % (Auto) 1.2, Neut # (Auto) 3.6, Lymph # (Auto) 2.1, [place] # (Auto) 0.3, Eos # (Auto) 0.0, Baso # (Auto) 0.1, Sodium 138, Potassium 4.6, Chloride 108 H, Carbon Dioxide 21 L, Anion Gap 13.6, BUN 16, Creatinine 1.40 H, Estimated Creat Clear 29, Estimated GFR 36 L, Est GFR ( Amer) 43 L, Glucose 161 H, Calcium 8.3 L, Total Bilirubin 0.7, AST 69 H, ALT 26, Alkaline Phosphatase 82, Troponin I < 0.01, NT-Pro-B Natriuret Pep 5690 H, Total Protein 7.1, Albumin 4.1, Globulin 3.0, Albumin/Globulin Ratio 1.4 05/03/24 17:23: Urine Color Yellow, Urine Appearance Clear, Urine pH 5.5, Ur Specific [place] 1.020, Urine Protein Negative, Urine Glucose (UA) Negative, Urine Ketones Negative, Urine Blood Negative, Urine Nitrate Positive, Urine Bilirubin Negative, Urine Urobilinogen 0.2, Ur Leukocyte Esterase 1+ A, Urine RBC Occasional, Urine WBC 10-20, Ur Squamous Epith Cells 20-50, Urine Bacteria 2+ 05/03/24 17:40: Troponin I < 0.01 05/03/24 18:17: Hemoglobin A1c 6.8 H I & O for Last 24 hours: Intake & Output 04/30/24 05/01/24 05/02/24 05/03/24 23:59 23:59 23:59 23:59 Output Total 0 / 0 Balance 0 / 0 Weight 58.967 kg Microbiology Reports for the Last 24 Hours: Patient noted with +1 leukocytes in urine past UTIs have been caused by Klebsiella pneumonia, per culture Radiology Reports for the Last 24 Hours: CT of the chest showed 4.2 cm enlargement of the aortic vessel, what appears to be a occlusive DVT in left subclavian appears to be chronic, Narrative: Also reviewed old records showing some diverticulosis ventral wall hernia with some fat present and large pulmonary vessels suggested of pulmonary hypertension enlargement of the heart and also significant degenerative disc disease of L1 S1 and coronary artery disease with a significant amount of calcium deposited in several vessels Constitutional Constitutional: no acute distress Comments: Patient resting well in bed actually eating and drinking without difficulty with family members in room *Routine HEENT Exam Head: Present normocephalic and atraumatic Eye: Present EOMI and PERRL ENT: Present mucous membranes moist and external ear normal *Routine Neck Exam Neck: Present supple and full ROM Comments: No bruits heard in carotid arteries, no difficulty with swallowing or eating Routine Chest/Breast/Axilla Exam Comments: No chest wall or breast tenderness noted *Routine Respiratory Exam Respiratory: Present CTA bilaterally, normal respiratory effort, able to speak in complete sentences and symmetric chest movement Comments: While sitting in bed normal examination of respiratory system, no signs of distress *Routine Cardiovascular Exam Cardiovascular: Present RRR, murmur and bradycardia Comments: Patient does have aortic murmur that is mild, heart rate is in the 50s on EKG shows to be a junctional rhythm no edema noted in any of the extremities *Routine Abdominal Exam Abdominal: Present soft and normoactive bowel sounds Comments: Patient had no abdominal pain eating without any difficulty *Routine Rectal Exam Rectal:: deferred *Routine Genitalia Exam Genitalia:: deferred *Routine Extremities Exam Comments: Normal pulses to all extremities. Skin turgor kind of poor in the lower extremities. With signs of skin aging. But no edema noted anywhere Routine Back/Spine/Pelvis Exam Back/Spine: Present full ROM Comments: Previous workup shows significant degenerative disc disease L1 S1 *Routine Skin Exam Comments: Normal skin aging changes no signs of breakdown or infection *Routine Neurological Exam Neurological: Present alert, oriented X3, CN II-XII intact, moving all extremities and normal tone Comments: No abnormalities noted during exam Routine Psychiatric Exam Psychiatric: Present normal affect, normal thought process, cooperative, good insight and good judgment H&P: Result Impressions 1. Bradycardia junctional rhythm: This is also probably causing some of the dizziness due to dropping of blood pressure when standing 2. Diabetes mellitus: Hemoglobin A1c 6.8 patient noted family history of diabetes including one of his her daughter. She has not been treated for it, noted old records reviewed show high levels of glucose in her urine a couple years ago 3. Degenerative disc disease: L1-L2 this would be chronic the patient is able to walk without assistance, progressively worsening images over the past 4 years 4. Coronary artery disease with calcification and enlarged aorta on CT scan, noted past history of aortic murmur 5. Urinary tract infection, +1 leukocytes noted, Klebsiella pneumonia they cultured on past incidence of urinary tract infection 6. Left subclavian DVT appears to be chronic 7, enlarged heart with dilated pulmonary arteries suggest pulmonary hypertension and/or diastolic dysfunction 8. COPD 9. Per history hyperlipidemia Imaging and Cardiology CT scan - chest: Status: image reviewed by me Additional comments: [address] [place] [address] [address] Scan Report Signed with Addenda Patient: Claribel Skelton MR#: [id number] : 1940 Acct:[id number] Age/Sex: 84 / F ADM Date: 05/03/24 Loc: ER Attending Dr: Ordering Physician: Raulito Santoyo Date of Service: 05/03/24 Procedure(s): CT angio chest - dissection Accession Number(s): [id number] cc: Mary Rivera MD; Provider,Referral MD; Raulito Santoyo~ ADDENDUMAddendum created by Mary Rivera MD on 05/03/2024 5:23:54 PM EDT: THIS REPORT CONTAINS FINDINGS THAT MAY BE CRITICAL TO PATIENT CARE. The findings were verbally communicated by Dr. Mary Rivera to Dr. Fajardo via telephone conference at 5:22 PM EDT on 05/03/2024. The findings were acknowledged and understood. Initial report created on 05/03/2024 5:09:55 PM EDT: PROCEDURE INFORMATION: Exam: CTA Chest With Contrast Exam date and time: 05/03/2024 4:10 PM Age: 84 years old Clinical indication: Dyspnea; Additional info: Dyspnea on exertion TECHNIQUE: Imaging protocol: Computed tomographic angiography of the chest with contrast. Exam focused on the arteries. 3D rendering (Not supervised by radiologist): MIP and/or 3D reconstructed images were created by the technologist. Radiation optimization: All CT scans at this facility use at least one of these dose optimization techniques: automated exposure control; mA and/or kV adjustment per patient size (includes targeted exams where dose is matched to clinical indication); or iterative reconstruction. Contrast material: ISO 370; Contrast volume: 80 ml; Contrast route: INTRAVENOUS (IV); COMPARISON: 1. CR XR CHEST 2V 05/03/2024 2:[address] ABDOMEN PELVIS WO CON 04/27/2021 2:31 PM FINDINGS: Limitations: Respiratory motion artifact severely degrades images, limiting sensitivity of exam. Pulmonary arteries: Dilated central pulmonary arteries compatible with longstanding pulmonary arterial hypertension. No large central pulmonary emboli. Relatively poor opacification of a few subsegmental pulmonary arteries in the basal segments of the bilateral lower lobes, nonspecific in the setting of pulmonary hypertension. No definite pulmonary emboli are demonstrated, noting technically inadequate study to definitively exclude subsegmental pulmonary emboli. Aorta: Fusiform aneurysmal dilation of the descending aorta measuring 4.2 cm in maximal diameter. The partially visualized portion of the descending aorta on 04/27/2021 CT abdomen/pelvis appears grossly unchanged. No prior chest CT available for direct comparison. 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 Lungs: No evidence of acute airspace infiltrate. No pulmonary edema. Calcified pulmonary granuloma in the left lower lobe consistent with chronic sequelae of prior granulomatous disease. Plate-like subsegmental atelectasis/scarring in the right middle lobe Pleural spaces: No pneumothorax. No pleural effusion. Heart: Biatrial enlargement suggestive of diastolic heart dysfunction. Mitral and aortic valve calcifications. No pericardial effusion. Coronary arteries: Three-vessel calcific coronary artery disease. Lymph nodes: No enlarged lymph nodes by CT criteria. Bones/joints: Chronic compression fracture deformity in the L1 with 50% vertebral body height loss and 4 mm retropulsion of the superior endplate, new since most recent available prior imaging performed on 04/27/2021. No evidence of acute osseous abnormality. Soft tissues: Unremarkable. IMPRESSION: 1. No evidence of acute cardiopulmonary disease. No evidence of pulmonary emboli, noting technically inadequate study for definitive exclusion of subsegmental pulmonary emboli. 2. 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 A filling defect/thrombus extends from the left subclavian vein into the left internal jugular vein, age indeterminate. 3. 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 4. Dilated central pulmonary arteries compatible with longstanding pulmonary arterial hyp -- ertension. 5. Biatrial enlargement suggestive of diastolic heart dysfunction. 6. Mitral and aortic valve calcifications. 7. Three-vessel calcific coronary artery disease. 8. Chronic compression fracture deformity in the L1 with 50% vertebral body height loss and 4 mm retropulsion of the superior endplate, new since most recent available prior imaging performed on 04/27/2021. Addendum Dictated By: Mary Rivera MD Addendum Signed By: Date/Time: 05/03/24 172 Addendum Cosigned By: Date/Time: DD/ PROCEDURE INFORMATION: Exam: CTA Chest With Contrast Exam date and time: 05/03/2024 4:10 PM Age: 84 years old Clinical indication: Dyspnea; Additional info: Dyspnea on exertion TECHNIQUE: Imaging protocol: Computed tomographic angiography of the chest with contrast. Exam focused on the arteries. 3D rendering (Not supervised by radiologist): MIP and/or 3D reconstructed images were created by the technologist. Radiation optimization: All CT scans at this facility use at least one of these dose optimization techniques: automated exposure control; mA and/or kV adjustment per patient size (includes targeted exams where dose is matched to clinical indication); or iterative reconstruction. Contrast material: ISO 370; Contrast volume: 80 ml; Contrast route: INTRAVENOUS (IV); COMPARISON: 1. CR XR CHEST 2V 05/03/2024 2:[address] ABDOMEN PELVIS WO CON 04/27/2021 2:31 PM FINDINGS: Limitations: Respiratory motion artifact severely degrades images, limiting sensitivity of exam. Pulmonary arteries: Dilated central pulmonary arteries compatible with longstanding pulmonary arterial hypertension. No large central pulmonary emboli. Relatively poor opacification of a few subsegmental pulmonary arteries in the basal segments of the bilateral lower lobes, nonspecific in the setting of pulmonary hypertension. No definite pulmonary emboli are demonstrated, noting technically inadequate study to definitively exclude subsegmental pulmonary emboli. Aorta: Fusiform aneurysmal dilation of the descending aorta measuring 4.2 cm in maximal diameter. The partially visualized portion of the descending aorta on 04/27/2021 CT abdomen/pelvis appears grossly unchanged. No prior chest CT available for direct comparison. 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 Lungs: No evidence of acute airspace infiltrate. No pulmonary edema. Calcified pulmonary granuloma in the left lower lobe consistent with chronic sequelae of prior granulomatous disease. Plate-like subsegmental atelectasis/scarring in the right middle lobe Pleural spaces: No pneumothorax. No pleural effusion. Heart: Biatrial enlargement suggestive of diastolic heart dysfunction. Mitral and aortic valve calcifications. No pericardial effusion. Coronary arteries: Three-vessel calcific coronary artery disease. Lymph nodes: No enlarged lymph nodes by CT criteria. Bones/joints: Chronic compression fracture deformity in the L1 with 50% vertebral body height loss and 4 mm retropulsion of the superior endplate, new since most recent available prior imaging performed on 04/27/2021. No evidence of acute osseous abnormality. Soft tissues: Unremarkable. IMPRESSION: 1. No evidence of acute cardiopulmonary disease. No evidence of pulmonary emboli, noting technically inadequate study for definitive exclusion of subsegmental pulmonary emboli. 2. 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 A filling defect/thrombus extends from the left subclavian vein into the left internal jugular vein, age indeterminate. 3. 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 4. Dilated central pulmonary arteries compatible with longstanding pulmonary arterial hypertension. 5. Biatrial enlargement suggestive of diastolic heart dysfunction. 6. Mitral and aortic valve calcifications. 7. Three-vessel calcific coronary artery disease. 8. Chronic compression fracture deformity in the L1 with 50% vertebral body height loss and 4 mm retropulsion of the superior endplate, new since most Assessment and Plan *Assessment and plan (1) DVT (deep venous thrombosis): Status: Acute Qualifiers: Chronicity: chronic DVT location: non-extremity vein Qualified Code(s): I82.91 - Chronic embolism and thrombosis of unspecified vein Category: Medical Code(s): I82.409 - Acute embolism and thrombosis of unspecified deep veins of unspecified lower extremity (2) GTZ (dyspnea on exertion): Status: Acute Category: Medical Code(s): R06.09 - Other forms of dyspnea (3) Junctional bradycardia: Status: Acute Category: Medical Code(s): R00.1 - Bradycardia, unspecified (4) UTI (urinary tract infection): Status: Acute Category: Medical Code(s): N39.0 - Urinary tract infection, site not specified (5) Pulmonary arterial hypertension: Status: Acute Category: Medical Code(s): I27.21 - Secondary pulmonary arterial hypertension (6) CHF (congestive heart failure): Status: Acute Qualifiers: Heart failure type: biventricular Qualified Code(s): I50.82 - Biventricular heart failure Category: Medical Code(s): I50.9 - Heart failure, unspecified (7) UTI (urinary tract infection): Status: Acute Qualifiers: Hematuria presence: without hematuria Urinary tract infection type: acute cystitis Qualified Code(s): N30.00 - Acute cystitis without hematuria Category: Medical Code(s): N39.0 - Urinary tract infection, site not specified (8) Low back pain with sciatica: Status: Acute Qualifiers: Back pain laterality: left Chronicity: unspecified Sciatica laterality: sciatica of left side Qualified Code(s): M54.42 - Lumbago with sciatica, left side Category: Medical Code(s): M54.40 - Lumbago with sciatica, unspecified side (9) Aortic heart murmur: Status: Acute Category: Medical Code(s): I35.8 - Other nonrheumatic aortic valve disorders (10) Coronary artery disease: Status: Acute Category: Medical Code(s): I25.10 - Atherosclerotic heart disease of [place] coronary artery without angina pectoris (11) Abnormal electrocardiogram [ECG] [EKG]: Status: Acute Category: Medical Code(s): R94.31 - Abnormal electrocardiogram [ECG] [EKG] (12) Hyperlipidemia: Status: Acute Category: Medical Code(s): E78.5 - Hyperlipidemia, unspecified (13) Diabetes mellitus: Status: Acute Category: Medical Code(s): E11.9 - Type 2 diabetes mellitus without complications Plan Presented with dizziness and weakness progressive over the past few weeks. Discussed case with ER physician, request admission for treatment of symptomatic bradycardia and concern for new diagnosis of CHF. I agreed to admit for further management. Monitoring on telemetry overnight. Heart rate in the 40s and 50s. Problems addressed as follows: 1. Cardiovascular disease with abnormal rhythm, causing dizziness, cardiology has been consulted we expect to be able to get an echocardiogram tomorrow, patient is aware of this and that the patient and the caseworker intake will determine what needs to be done next including adjustment of medication to that of have needing a pacemaker. To adjust medication as needed 2 urinary tract infection: Urinalysis grossly abnormal. Initiated on ceftriaxone 1 g daily. 3. Diabetes mellitus: New diagnosis, A1c 6.8. Initiate sliding scale insulin with fingersticks ACHS 4. Low back pain, stable at this time not needing any adjustments to treatment 5. Thoracic aortic aneurysm, the aorta is thickened enlarged with large amounts of calcium throughout the thoracic area. Patient being seen by cardiology, patient is stable at this point in time and no treatment is needed presently Per my review of CT of chest, patient noted to have DVT in left subclavian artery with collateralization of veins. Will continue prophylactic Lovenox as it appears chronic. No acute need for therapeutic dosing. Full code Lovenox N.p.o. at midnight
[2024-05-03 20:51] LABS: POC Glucose,Bedside 141 (70-110)
[2024-05-03 21:21] LABS: Troponin I < 0.01 ng/ml (0.00-0.034)
[2024-05-04] VITALS (21 sets, daily range): BP systolic 106–158; BP diastolic 51–86; PULSE 42–80; RESP 15–20; TEMP 36.1–37; O2SAT 91–99; BMI 23.9
--- NOTE | 2024-05-04 05:13 | PC.NURSE ---
Alert to person and place. No complaints from patient. Junctional to sinus shara to NSR on tele. Pt has had several occasions that she drops to low 30s HR. Couple long pauses. [employer] aware of all, strips printed and on chart. Crash cart by room for pacing if needed. HR sustains 40-50s. Other vital signs stable. On room air. Lung sounds clear. Ambulates to the restroom with one assist. Pull alarm attached. Daughter has remained at the bedside. Call light in reach.
[2024-05-04 06:33] LABS: POC Glucose,Bedside 136 (70-110)
--- NOTE | 2024-05-04 06:37 | PC.NURSE ---
Called Alexis Patel APRN about [facility] consult. States it was entered by mistake and he will change that.
[2024-05-04 06:58] LABS: Albumin Level 3.6 g/dl (3.5-5.0); Chloride 109 mmol/L (98-107); Potassium 4.3 mmoL/L (3.5-5.1); Sodium 139 mmol/L (136-145)
[2024-05-04 06:59] LABS: Basophils % 0.6 % (0.1-2.0); Eosinophils % 0.8 % (0.1-12.0); Hematocrit 36.4 % (37.0-47.0); Hemoglobin 11.2 g/dL (12.2-16.2); Lymphocytes # 1.7 K/mm3 (0.7-4.5); Lymphocytes % 37.3 % (10-50); Mean Corpuscular HGB Conc 30.8 g/dL (31.8-35.4); Mean Corpuscular Hemoglobin 27.4 pg (27.0-31.2); Mean Corpuscular Volume 88.9 fl (81-99); Mean Platelet Volume 10.2 fl (7.4-10.4); Monocytes # 0.3 K/mm3 (0.1-1.0); Monocytes % 6.4 % (1.7-9.3); Neutrophils # 2.5 K/mm3 (1.8-7.8); Neutrophils % 54.8 % (37.0-80.0); Platelet Count 137 K/mm3 (142-424); Red Blood Count 4.09 M/mm3 (4.20-5.40); Red Cell Distribution Width 17.6 % (11.5-17.5); White Blood Count 4.5 K/mm3 (4.8-10.8)
[2024-05-04 07:00] LABS: Alanine Aminotransferase 19 U/L (12-78); Anion Gap 9.3 mEq/L (5-15); Aspartate Amino Transferase 30 U/L (14-36); Blood Urea Nitrogen 16 mg/dl (7-17); Carbon Dioxide 25 mmol/L (22.0-30.0); Creatinine Clearance Estimated 30 mL/min (50-200); Estimated Glomerular Filt Rate 39 ml/min (>60); GFR (African American) 47 ML/MIN (>60)
[2024-05-04 07:01] LABS: Albumin/Globulin Ratio 1.2 (1.1-1.8); Alkaline Phosphatase 75 U/L (38-126); Bilirubin,Total 0.4 mg/dl (0.2-1.3); Calcium 8.4 mg/dl (8.4-10.2); Chol/HDL Ratio 2.8 (1-3.5); Cholesterol 91 mg/dl (140-200); Globulin 2.9 g/dL (1.3-3.2); Glucose 126 mg/dl (74-100); HDL Cholesterol 33 mg/dl (40-60); Magnesium 2.2 mg/dl (1.6-2.3); Total Protein,Serum 6.5 g/dl (6.3-8.2); Triglycerides 194 mg/dl (30-150); VLDL Cholesterol 39 mg/dL (0-40)
[2024-05-04] MEDS: CLOPIDOGREL 75MG TAB 75 MG PO (10:14)
[2024-05-04] MEDS: IRBESARTAN 75MG TABLET 75 MG PO (10:14)
--- NOTE | 2024-05-04 10:26 | HMH.PHAINT1 ---
Pharmacy Intervention Comments: MEDICATION RECONCILIATION COMPLETED ON PATIENT USING EXTERNAL FILL HISTORY FROM PHARMACY. -FAZAL MURO, [place]
[2024-05-04 11:36] LABS: Free T4 (Free Thyroxine) 1.11 ng/dl (0.78-2.19)
[2024-05-04 11:50] LABS: Thyroid Stimulating Hormone 1.57 uIU/mL (0.465-4.68)
--- NOTE | 2024-05-04 12:38 | IR_ITS ---
APPROVED REPORT Patient Location: Inpatient [facility] Maker: VERÓNICA Monzon RT (R) PROCEDURES Selective coronary angiogram Drug-eluting stent deployment to the proximal LAD Intravascular ultrasound to the LAD Intravascular ultrasound of the circumflex artery Drug-eluting stent deployment to the ostial proximal and mid dominant right coronary artery INDICATION Coronary artery disease, Abnormal echocardiogram with regional wall motion abnormality, Sinus arrest with symptomatic bradycardia, Informed consent was obtained prior to the procedure. COMPLICATIONS None Estimated Blood Loss: Less than 10 mls TECHNIQUE One percent lidocaine used to anesthetize the right anterior aspect of the wrist. The right radial artery was accessed via the Seldinger technique. A 6 [place] sheath was placed in the right radial artery. 2.5 mg of Verapamil, 800 mcg of nitroglycerin, 1mg Lidocaine and 5000 U Heparin were given through the arterial sheath. The papa catheter was also used to perform selective coronary angiogram. At the end of the diagnostic angiogram therapeutic heparin was administered giving a therapeutic ACT and the guide catheter was placed in the left anterior descending artery which had a separate ostium in the left coronary cusp. A Choice PT extra-support wire was placed distally and a 3 mm x 22 mm Genaro frontier stent was deployed in the proximal segment at 20 glenn reducing the stenosis to 0%. There was angiographic ambiguity at the ostial level therefore intravascular ultrasound probe was advanced which demonstrated wide patency of the ostium with excellent stent apposition and expansion throughout the proximal portion. The distal portion of the stent had positive remodeling around the [place] vessel however both before and after this positive remodeling the stent was appropriately sized. The apparatus was removed from the left anterior descending artery and then placed into the circumflex artery where the wire was advanced. Intravascular ultrasound probe was advanced which demonstrated patency of the ostium with an MLA exceeding 4 mm???. At this point the apparatus was removed from the circumflex artery and placed in the right coronary artery followed by Choice PT extra-support wire. A 3 mm x 38 mm Genaro frontier stent was deployed to the proximal midportion at 16 glenn reducing the stenosis. An additional 3 mm x 12 mm [place] frontier stent was placed in the ostial segment after severe dampening occurred and the ostium was dilated at 20 glenn. The 2 stents did overlap. The balloon was then advanced and deployed at 20 glenn in the proximal portion of the first right coronary artery stent placed. KYLAH-3 flow was present before and after the procedure. At the end the procedure the apparatus was removed the sheath was removed and hemostasis was achieved using TR banding patient was transferred to the postop putting in stable condition ANGIOGRAPHIC RESULTS The left anterior descending artery Originates in the left coronary cusp and has proximal 70% stenoses followed by dilatation just proximal to an additional stent. The stent itself is patent and has diffuse mild in-stent restenosis. Distally there is excellent transitioning to the LAD there are additional 30% stenoses along tortuous bends The circumflex artery Originates in the left coronary cusp and has an ostial eccentric 40% stenosis followed by a proximal 60% stenosis immediately at the bifurcation of the first obtuse marginal artery and proximal circumflex artery. The second obtuse marginal artery has 30% and 40% proximal stenoses and is 2.5 mL millimeters in diameter. The third obtuse marginal artery has a proximal 50 and 70% stenosis just prior to distal bifurcations. The right coronary artery Is a dominant vessel and has a proximal concentric 70% stenosis followed by an eccentric ruptured plaque also in the proximal to mid segment followed by a stent which has mild in-stent restenosis. There are distal 30% stenoses The SANCHES ventriculogram reveals not performed The left ventricular end-diastolic pressure not measured IMPRESSION Severe disease in the proximal LAD as described above with successful stenting revealed reducing the lesion to 0% with 1 drug-eluting stent Moderate to severe disease in the circumflex artery which is best managed medically given the bifurcating nature of the stenoses combined with tortuosity and extensive calcification Severe disease in the proximal to mid right coronary artery as described above successful stenting of the ostial proximal to mid right coronary severe disease reduced to 0% with 2 contiguous drug-eluting stents PLAN 1. Plavix and aspirin 2. LDL less than 55 to be 2 that high intensity statin 3. Patient will likely be brought back to the [facility] tomorrow for placement of pacemaker due to symptomatic bradycardia 4. Cardiac rehabilitation following postoperative healing of the pacemaker 5. Avoidance of tobacco products Electronically signed by : Randell Doss MD 05/04/2024 14:22:24
[2024-05-04 12:49] LABS: POC Glucose,Bedside 142 (70-110)
[2024-05-04] MEDS: HEPARIN 1,000 UNITS/ML 10ML VIAL (CATH LAB) 10000 UNIT IV (13:24)
[2024-05-04] MEDS: HEPARIN 1,000 UNITS/500ML NS (CATH LAB) 3000 UNIT IV (13:24)
[2024-05-04] MEDS: VERAPAMIL 2.5MG/ML 2ML VIAL 2.5 MG IV (13:24)
[2024-05-04] MEDS: diphenhydrAMINE 50MG/ML VIAL 50 MG IV (13:24)
[2024-05-04] MEDS: 0.9 % SODIUM CHLORIDE 500 ML 25 ML IV (13:24)
[2024-05-04] MEDS: LIDOCAINE 1% 5ML PF VIAL 20 ML IJ (13:24)
--- NOTE | 2024-05-04 13:47 | P.PN_ITS ---
Subjective *Date: 05/04/24 *Time: 20:00 Interval history: Pleasant on interview this morning. Oriented to self. Thinks she is in the hospital in [place]. Denies any chest pain or shortness of breath. Remains bradycardic on telemetry. Stable on room air. Medical Exam Vital signs and Labs for Last 24 Hours: Vital Signs Temp Pulse Pulse Resp BP BP Pulse Ox 05/04/24 11:54 98 F 68 20 133/72 97 05/04/24 09:00 05/04/24 08:00 05/04/24 08:00 98 F 54 L 17 134/61 98 05/04/24 06:41 05/04/24 05:00 05/04/24 04:00 98.4 F 50 L 16 113/56 L 99 05/04/24 04:00 60 05/04/24 03:00 05/04/24 00:39 05/04/24 00:00 42 L 05/04/24 00:00 97.9 F 45 L 19 106/86 L 99 05/03/24 22:34 05/03/24 21:00 05/03/24 20:00 45 L 05/03/24 20:00 45 L 05/03/24 20:00 97.7 F 48 L 18 119/63 97 05/03/24 19:00 05/03/24 18:59 45 L 05/03/24 18:16 97.8 F 50 L 20 143/55 H 99 05/03/24 18:01 97.6 F 46 L 16 111/50 L 05/03/24 17:31 51 L 14 111/50 L 93 L 05/03/24 16:31 44 L 14 103/70 L 99 05/03/24 16:01 48 L 14 115/51 L 97 05/03/24 15:32 46 L 22 116/51 L 96 05/03/24 14:30 52 L 19 125/69 99 05/03/24 14:09 97.6 F 50 L 13 149/71 H 98 O2 Del Method 05/04/24 11:54 05/04/24 09:00 Room Air 05/04/24 08:00 Room Air 05/04/24 08:00 05/04/24 06:41 Room Air 05/04/24 05:00 Room Air 05/04/24 04:00 Room Air 05/04/24 04:00 05/04/24 03:00 Room Air 05/04/24 00:39 Room Air 05/04/24 00:00 05/04/24 00:00 Room Air 05/03/24 22:34 Room Air 05/03/24 21:00 Room Air 05/03/24 20:00 05/03/24 20:00 Room Air 05/03/24 20:00 Room Air 05/03/24 19:00 Room Air 05/03/24 18:59 Room Air 05/03/24 18:16 Room Air 05/03/24 18:01 05/03/24 17:31 Room Air 05/03/24 16:31 Room Air 05/03/24 16:01 Room Air 05/03/24 15:32 Room Air 05/03/24 14:30 05/03/24 14:09 Room Air Intake and Output 05/03/24 05/04/24 05/04/24 23:59 07:59 15:59 Intake Total 180 / 180 Output Total 0 / 0 0 / 0 Balance 0 / 180 180 / 180 Intake: Intake, Oral Amount 180 / 180 Output: Output, Urine Amount 0 / 0 0 / 0 Other: Number of Unmeasured Voids 1 1 Weight 58.967 kg 58.967 kg Patient Weight 05/04/24 23:59 Weight 58.967 kg Laboratory Results - last 24 hr 05/03/24 14:10: WBC 6.2, RBC 4.19 L, Hgb 11.6 L, Hct 37.3, MCV 89.0, MCH 27.7, MCHC 31.1 L, RDW 17.3, Plt Count 167, MPV 9.9, Neut % (Auto) 58.6, Lymph % (Auto) 34.4, [place] % (Auto) 5.3, Eos % (Auto) 0.5, Baso % (Auto) 1.2, Neut # (Auto) 3.6, Lymph # (Auto) 2.1, [place] # (Auto) 0.3, Eos # (Auto) 0.0, Baso # (Auto) 0.1, Sodium 138, Potassium 4.6, Chloride 108 H, Carbon Dioxide 21 L, Anion Gap 13.6, BUN 16, Creatinine 1.40 H, Estimated Creat Clear 29, Estimated GFR 36 L, Est GFR ( Amer) 43 L, Glucose 161 H, Calcium 8.3 L, Total Bilirubin 0.7, AST 69 H, ALT 26, Alkaline Phosphatase 82, Troponin I < 0.01, NT-Pro-B Natriuret Pep 5690 H, Total Protein 7.1, Albumin 4.1, Globulin 3.0, Albumin/Globulin Ratio 1.4 05/03/24 17:23: Urine Color Yellow, Urine Appearance Clear, Urine pH 5.5, Ur Specific [place] 1.020, Urine Protein Negative, Urine Glucose (UA) Negative, Urine Ketones Negative, Urine Blood Negative, Urine Nitrate Positive, Urine Bilirubin Negative, Urine Urobilinogen 0.2, Ur Leukocyte Esterase 1+ A, Urine RBC Occasional, Urine WBC 10-20, Ur Squamous Epith Cells 20-50, Urine Bacteria 2+ 05/03/24 17:40: Troponin I < 0.01 05/03/24 18:17: Hemoglobin A1c 6.8 H 05/03/24 20:40: POC Glucose 141 H 05/03/24 20:45: Troponin I < 0.01 05/04/24 05:31: WBC 4.5 L D, RBC 4.09 L, Hgb 11.2 L, Hct 36.4 L, MCV 88.9, MCH 27.4, MCHC 30.8 L, RDW 17.6 H, Plt Count 137 L, MPV 10.2, Neut % (Auto) 54.8, Lymph % (Auto) 37.3, [place] % (Auto) 6.4, Eos % (Auto) 0.8, Baso % (Auto) 0.6, Neut # (Auto) 2.5, Lymph # (Auto) 1.7, [place] # (Auto) 0.3, Eos # (Auto) 0.0, Baso # (Auto) 0.0, Sodium 139, Potassium 4.3, Chloride 109 H, Carbon Dioxide 25, Anion Gap 9.3, BUN 16, Creatinine 1.30 H, Estimated Creat Clear 30, Estimated GFR 39 L, Est GFR ( Amer) 47 L, Glucose 126 H D, Calcium 8.4, Magnesium 2.2, Total Bilirubin 0.4, AST 30 D, ALT 19 D, Alkaline Phosphatase 75, Total Protein 6.5, Albumin 3.6 D, Globulin 2.9, Albumin/Globulin Ratio 1.2, Triglycerides 194 H, Cholesterol 91 L, LDL Cholesterol Direct 30.30 L, VLDL Cholesterol 39, HDL Cholesterol 33 L, Cholesterol/HDL Ratio 2.8, TSH 1.57, Free T4 1.11 05/04/24 06:25: POC Glucose 136 H 05/04/24 12:42: POC Glucose 142 H I & O for Labs for Last 24 Hours: Intake & Output 05/01/24 05/02/24 05/03/24 05/04/24 23:59 23:59 23:59 23:59 Intake Total 180 / 180 Output Total 0 / 0 0 / 0 Balance 0 / 180 180 / 180 Weight 58.967 kg 58.967 kg Microbiology Reports for the Last 24 Hours: Microbiology 05/03/24 17:23 Urine,Clean Catch Urine Culture - Preliminary Constitutional: Present no acute distress, average body habitus and chronically ill appearing Head: Present atraumatic and normocephalic Respiratory: Present normal respiratory effort; Absent rhonchi, wheezes or crackles Cardiac: Present Regular Rhythm and Bradycardia GI: Present normal bowel sounds; Absent tenderness Extremities: Present normal inspection and full ROM Skin: Present intact; Absent erythema Neuro: Present Grossly Intact, alert, awake and moves all extremities Comment:: Oriented to self, knows she is in the hospital. Thinks she is in [place]. Does not know date or time. Does not know why she came to the hospital Assessment and Plan *Assessment and plan (1) New onset of congestive heart failure: Status: Acute Category: Medical Code(s): I50.9 - Heart failure, unspecified (2) Junctional bradycardia: Status: Acute Category: Medical Code(s): R00.1 - Bradycardia, unspecified (3) DVT (deep venous thrombosis): Status: Acute Qualifiers: Chronicity: chronic DVT location: non-extremity vein Qualified Code(s): I82.91 - Chronic embolism and thrombosis of unspecified vein Category: Medical Code(s): I82.409 - Acute embolism and thrombosis of unspecified deep veins of unspecified lower extremity (4) UTI (urinary tract infection): Status: Acute Qualifiers: Hematuria presence: without hematuria Urinary tract infection type: acu te cystitis Qualified Code(s): N30.00 - Acute cystitis without hematuria Category: Medical Code(s): N39.0 - Urinary tract infection, site not specified (5) Dementia: Status: Acute Category: Medical Code(s): F03.90 - Unspecified dementia, unspecified severity, without behavioral disturbance, psychotic disturbance, mood disturbance, and anxiety (6) GTZ (dyspnea on exertion): Status: Acute Category: Medical Code(s): R06.09 - Other forms of dyspnea (7) UTI (urinary tract infection): Status: Acute Category: Medical Code(s): N39.0 - Urinary tract infection, site not specified (8) Pulmonary arterial hypertension: Status: Acute Category: Medical Code(s): I27.21 - Secondary pulmonary arterial hypertension (9) Low back pain with sciatica: Status: Acute Qualifiers: Back pain laterality: left Chronicity: unspecified Sciatica laterality: sciatica of left side Qualified Code(s): M54.42 - Lumbago with sciatica, left side Category: Medical Code(s): M54.40 - Lumbago with sciatica, unspecified side (10) Aortic heart murmur: Status: Acute Category: Medical Code(s): I35.8 - Other nonrheumatic aortic valve disorders (11) Coronary artery disease: Status: Acute Category: Medical Code(s): I25.10 - Atherosclerotic heart disease of [place] coronary artery without angina pectoris (12) Abnormal electrocardiogram [ECG] [EKG]: Status: Acute Category: Medical Code(s): R94.31 - Abnormal electrocardiogram [ECG] [EKG] (13) Hyperlipidemia: Status: Acute Category: Medical Code(s): E78.5 - Hyperlipidemia, unspecified (14) Diabetes mellitus: Status: Acute Category: Medical Code(s): E11.9 - Type 2 diabetes mellitus without complications Plan Ms. Skelton is an 84-year-old female with worsening shortness of breath over the past 2 weeks. Presented to the ER for evaluation. 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 Admitted to medicine after discussion with the ER. Cardiology evaluating, plan for left heart cath versus pacemaker placement today. Problems addressed as follows: Symptomatic bradycardia Junctional rhythm New onset CHF -Cardiology consulted, recommends admission. Evaluating this morning, will proceed with left heart cath versus pacemaker placement. -Echo obtained, preliminary read showing wall motion abnormalities. -Thyroid labs obtained, TSH normal at 1.57. -Patient is not on any rate controlling medications. -Further management of bradycardia pending left heart cath findings. UTI: -Urinalysis grossly abnormal. Urine culture pending. Continue ceftriaxone 1 g daily Diabetes: A1c 6.8. Continue with sliding scale insulin fingersticks ACHS. Thoracic aortic aneurysm, the aorta is thickened enlarged with large amounts of calcium throughout the thoracic area. Patient being seen by cardiology, patient is stable at this point in time and no treatment is needed presently. Will need monitoring after discharge Dementia: Complicates all aspects of her care Full code Heparinized in [employer] Cardiac diet
--- NOTE | 2024-05-04 14:33 | P.CONCA_ITS ---
History of Present Illness History of Present Illness Consult date: 05/04/24 Requesting physician: Tray Ovalle Chief complaint: dizziness, weakness History of present illness: This is an 84-year-old white female who presented to the emergency department with a 2-week history of dizziness and weakness. She has a past medical history of coronary artery disease, hypertension, hyperlipidemia, diabetes and congestive heart failure. The patient lives alone but states that over the last 2 weeks she has noticed that she is just feeling dizzy all the time and she is very weak. She also has some shortness of breath with exertion. This does improve with rest. She denies any chest pain or pressure. She denies any lower extremity edema. She denies any fever, chills, nausea, vomiting, diarrhea, PND orthopnea. Upon arrival to the emergency department the patient was found to be in a junctional rhythm with bradycardia. She also has been having some asystolic pauses. The patient was admitted to the hospital for further evaluation and treatment and consideration of permanent pacemaker placement. This morning she states that she still feels very weak and tired. She is still having dizziness intermittently but she is feeling a little bit better. 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 [facility] Disclaimer: The information contained in this section may have been updated after the chelsey ent was seen, as this information can be updated by other users. Medical History (Updated 05/04/24 @ 14:39 by Bonnie Roldan APRN) Abnormal echocardiogram Diabetes mellitus Symptomatic bradycardia Dizziness Shortness of Breath Atypical angina COPD (chronic obstructive pulmonary disease) Hyperlipidemia Hypertension Aortic heart murmur Coronary artery disease Abnormal electrocardiogram [ECG] [EKG] Encounter for pre-operative cardiovascular clearance Surgical History History of coronary artery stent placement Family History Father Family history of myocardial infarction Social History Smoking Status: Current some day smoker tobacco type: cigarettes packs per day: 1 second hand exposure: Yes alcohol intake: never substance use type: denies use current occupational status: other Travel in the last 8 weeks: None household members: spouse housing: house 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 current occupational exposures/hazards: No caffeine: Yes Review of Systems Review of Systems Review of systems:: pertinent systems reviewed and negative unless documented below Constitutional Constitutional: Reports system reviewed and no additional complaints, except as documented, Reports fatigue, Reports lethargy and Reports weakness Eyes Eyes: Reports system reviewed and no additional complaints, except as documented ENT Ears, Nose, Mouth, and Throat: Reports system reviewed and no additional complaints, except as documented and Reports vertigo *Cardiovascular Cardiovascular: Reports system reviewed and no additional complaints, except as documented, Denies chest pain, Reports dyspnea and Reports dyspnea on exertion *Respiratory Respiratory: Reports system reviewed and no additional complaints, except as documented, Reports dyspnea and Reports dyspnea on exertion *Gastrointestinal Gastrointestinal: Reports system reviewed and no additional complaints, except as documented *Genitourinary Genitourinary: Reports system reviewed and no additional complaints, except as documented *Musculoskeletal Musculoskeletal: Reports system reviewed and no additional complaints, except as documented Integumentary/Breasts Skin/Breast: Reports system reviewed and no additional complaints, except as documented *Neurologic Neurologic: Reports system reviewed and no additional complaints, except as documented, Reports as per HPI, Reports vertigo and Reports weakness Psychiatric Psychiatric: Reports system reviewed and no additional complaints, except as documented Endocrine Endocrine: Reports system reviewed and no additional complaints, except as documented and Reports fatigue Hematologic/Lymphatic Hematologic/Lymphatic: Reports system reviewed and no additional complaints, except as documented Allergic/Immunologic Allergic/Immunologic: Reports system reviewed and no additional complaints, except as documented Exam Data for Last 24 hours Vital signs and Labs for Last 24 Hours: Temp Pulse Resp BP Pulse Ox O2 Del Method 98 F 58 L 19 123/53 L 97 Room Air 05/04/24 11:54 05/04/24 14:24 05/04/24 14:24 05/04/24 14:24 05/04/24 14:24 05/04/24 09:00 Laboratory Results - last 24 hr 05/03/24 14:10: WBC 6.2, RBC 4.19 L, Hgb 11.6 L, Hct 37.3, MCV 89.0, MCH 27.7, MCHC 31.1 L, RDW 17.3, Plt Count 167, MPV 9.9, Neut % (Auto) 58.6, Lymph % (Auto) 34.4, Mcdowell % (Auto) 5.3, Eos % (Auto) 0.5, Baso % (Auto) 1.2, Neut # (Auto) 3.6, Lymph # (Auto) 2.1, Mcdowell # (Auto) 0.3, Eos # (Auto) 0.0, Baso # (Auto) 0.1, Sodium 138, Potassium 4.6, Chloride 108 H, Carbon Dioxide 21 L, Anion Gap 13.6, BUN 16, Creatinine 1.40 H, Estimated Creat Clear 29, Estimated GFR 36 L, Est GFR ( Amer) 43 L, Glucose 161 H, Calcium 8.3 L, Total Bilirubin 0.7, AST 69 H, ALT 26, Alkaline Phosphatase 82, Troponin I < 0.01, NT-Pro-B Natriuret Pep 5690 H, Total Protein 7.1, Albumin 4.1, Globulin 3.0, Albumin/Globulin Ratio 1.4 05/03/24 17:23: Urine Color Yellow, Urine Appearance Clear, Urine pH 5.5, Ur Specific [place] 1.020, Urine Protein Negative, Urine Glucose (UA) Negative, Urine Ketones Negative, Urine Blood Negative, Urine Nitrate Positive, Urine Bi lirubin Negative, Urine Urobilinogen 0.2, Ur Leukocyte Esterase 1+ A, Urine RBC Occasional, Urine WBC 10-20, Ur Squamous Epith Cells 20-50, Urine Bacteria 2+ 05/03/24 17:40: Troponin I < 0.01 05/03/24 18:17: Hemoglobin A1c 6.8 H 05/03/24 20:40: POC Glucose 141 H 05/03/24 20:45: Troponin I < 0.01 05/04/24 05:31: WBC 4.5 L D, RBC 4.09 L, Hgb 11.2 L, Hct 36.4 L, MCV 88.9, MCH 27.4, MCHC 30.8 L, RDW 17.6 H, Plt Count 137 L, MPV 10.2, Neut % (Auto) 54.8, L ymph % (Auto) 37.3, Mcdowell % (Auto) 6.4, Eos % (Auto) 0.8, Baso % (Auto) 0.6, Neut # (Auto) 2.5, Lymph # (Auto) 1.7, Mcdowell # (Auto) 0.3, Eos # (Auto) 0.0, Baso # (Auto) 0.0, Sodium 139, Potassium 4.3, Chloride 109 H, Carbon Dioxide 25, Anion Gap 9.3, BUN 16, Creatinine 1.30 H, Estimated Creat Clear 30, Estimated GFR 39 L , Est GFR ( Amer) 47 L, Glucose 126 H D, Calcium 8.4, Magnesium 2.2, Total Bilirubin 0.4, AST 30 D, ALT 19 D, Alkaline Phosphatase 75, Total Protein 6.5, Albumin 3.6 D, Globulin 2.9, Albumin/Globulin Ratio 1.2, Triglycerides 194 H, Cholesterol 91 L, LDL Cholesterol Direct 30.30 L, VLDL Cholesterol 39, HDL Cholesterol 33 L, Cholesterol/HDL Ratio 2.8, TSH 1.57, Free T4 1.11 05/04/24 06:25: POC Glucose 136 H 05/04/24 12:42: POC Glucose 142 H I & O for Last 24 hours: Intake & Output 05/01/24 05/02/24 05/03/24 05/04/24 23:59 23:59 23:59 23:59 Intake Total 180 / 180 Output Total 0 / 0 0 / 0 Balance 0 / 180 180 / 180 Weight 130 lb 130 lb Microbiology Reports for the Last 24 Hours: Microbiology 05/03/24 17:23 Urine,Clean Catch Urine Culture - Preliminary Narrative: EKG is junctional rhythm with a rate of 52 bpm and anterior septal ST/T wave abnormalities Constitutional Constitutional: no acute distress and average body habitus *Routine HEENT Exam Head: Present normocephalic and atraumatic ENT: Present mucous membranes moist *Routine Neck Exam Neck: Present supple, full ROM and normal carotid upstroke; Absent JVD, carotid bruit or lymphadenopathy *Routine Respiratory Exam Respiratory: Present CTA bilaterally, normal respiratory effort, able to speak i n complete sentences and symmetric chest movement *Routine Cardiovascular Exam Cardiovascular: Present RRR, Normal S1, Normal S2 and bradycardia; Absent murmur or gallop *Routine Abdominal Exam Abdominal: Present soft and normoactive bowel sounds; Absent tenderness, distended or organomegaly *Routine Extremities Exam Extremities: Present full ROM, pulses intact and normal capillary refill; Absent cyanosis, clubbing or edema *Routine Skin Exam Skin: Present intact and warm; Absent erythema *Routine Neurological Exam Neurological: Present alert, oriented X3 and CN II-XII intact; Absent sensory deficit or motor deficit Routine Psychiatric Exam Psychiatric: Present normal affect Meds Home Medications and Allergies Home Medications ?Medication ?Instructions ?Recorded ?Confirmed ?Type clopidogrel 75 mg tablet 75 mg PO DAILY 04/21/21 05/03/24 History linagliptin 5 mg tablet (Tradjenta) 5 mg PO DAILY 08/15/22 05/03/24 History amitriptyline 50 mg tablet 50 mg PO HS 05/03/24 05/04/24 History atorvastatin 10 mg tablet 10 mg PO HS 05/03/24 05/03/24 History donepezil 5 mg tablet 5 mg PO HS 05/03/24 05/03/24 History furosemide 20 mg tablet 20 mg PO DAILY 05/03/24 05/03/24 History losartan 50 mg tablet 50 mg PO DAILY 05/03/24 05/03/24 History rivastigmine 4.6 mg/24 hour 4.6 mg transdermal DAILY 05/03/24 05/03/24 History transdermal patch (Exelon Patch) hydrocortisone 2.5 % topical cream 1 applic topical BID 05/04/24 05/04/24 History with perineal applicator latanoprost 0.005 % eye drops 1 drp Eye-Both HS 05/04/24 05/04/24 History New Prescriptions to Start Prescriptions: Allergies Allergy/AdvReac Type Severity Reaction Status Date / Time Sulfa (Sulfonamide Allergy Unknown Unknown Verified 08/15/22 13:38 Antibiotics) allergy reaction Penicillins Allergy Verified 08/15/22 13:38 Assessment and Plan *Assessment and plan (1) Atypical angina: Status: Acute Category: Medical Code(s): I20.89 - Other forms of angina pectoris (2) Coronary artery disease: Status: Acute Qualifiers: Coronary Disease-Associated Artery/Lesion type: habematolel artery [place] vs. transplanted heart: habematolel heart Associated angina: with other forms of angina Qualified Code(s): I25.118 - Atherosclerotic heart disease of habematolel coronary artery with other forms of angina pectoris Category: Medical Code(s): I25.10 - Atherosclerotic heart disease of habematolel coronary artery without angina pectoris (3) Shortness of Breath: Status: Acute Category: Medical Code(s): R06.02 - Shortness of breath (4) Dizziness: Status: Acute Category: Medical Code(s): R42 - Dizziness and giddiness (5) Symptomatic bradycardia: Status: Acute Category: Medical Code(s): R00.1 - Bradycardia, unspecified (6) Diabetes mellitus: Status: Acute Qualifiers: Diabetes mellitus type: type 2 Diabetes mellitus 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 use: without detention use Diabetes mellitus complication status: without complication Qualified Code(s): E11.9 - Type 2 diabetes mellitus without complications Category: Medical Code(s): E11.9 - Type 2 diabetes mellitus without complications (7) Dementia: Status: Acute Qualifiers: Dementia type: unspecified type Dementia severity: unspecified severity Dementia behavioral or psychological symptom: unspecified whether behavioral, psychotic, or mood disturbance or anxiety Qualified Code(s): F03.90 - Unspecified dementia, unspecified severity, without behavioral disturbance, psy chotic disturbance, mood disturbance, and anxiety Category: Medical Code(s): F03.90 - Unspecified dementia, unspecified severity, without behavioral disturbance, psychotic disturbance, mood disturbance, and anxiety (8) Hyperlipidemia: Status: Acute Qualifiers: Hyperlipidemia type: mixed hyperlipidemia Qualified Code(s): E78.2 - Mixed hyperlipidemia Category: Medical Code(s): E78.5 - Hyperlipidemia, unspecified (9) Hypertension: Status: Acute Qualifiers: Hypertension type: primary hypertension Qualified Code(s): I10 - Essential (primary) hypertension Category: Medical Code(s): I10 - Essential (primary) hypertension (10) Abnormal electrocardiogram [ECG] [EKG]: Status: Acute Category: Medical Code(s): R94.31 - Abnormal electrocardiogram [ECG] [EKG] (11) Abnormal echocardiogram: Status: Acute Category: Medical Code(s): R93.1 - Abnormal findings on diagnostic imaging of heart and coronary circulation Plan Plan: 1. The patient was admitted to the hospital due to dizziness, weakness and shortness of breath. The patient was found to be bradycardic in a junctional rhythm and was admitted to the hospital for further evaluation. Throughout her hospitalization she has continued to have bradycardia with a junctional rhythm. She has also had asystolic pauses that are lasting anywhere from 2 to 3 seconds. Consideration for permanent pacemaker placement. 2. The patient does have an abnormal EKG and also an abnormal echocardiogram showing septal and anterior septal LV wall motion abnormalities. The wall motion abnormalities are consistent with her abnormal EKG. Her apex is hypokinetic. 3. The patient is having shortness of breath which is most likely her anginal equivalent. Due to the patient's atypical angina, abnormal EKG, abnormal echocardiogram and known coronary artery disease, we will plan to proceed with left cardiac catheterization today to evaluate her coronary artery disease prior to proceeding with permanent pacemaker placement. 4. The patient has been educated the risk and benefits of proceeding with left cardiac catheterization. The patient verbalized understanding and is agreeable in proceeding with the procedure. 5. The patient will be n.p.o. in preparation for left cardiac catheterization. 6. Her thyroid panel is normal. 7. The patient does have a distending thoracic aortic aneurysm measuring 4.2 cm. This will need to be reevaluated in 6 months. 8. 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 There is a filling defect/thrombus that extends from the left subclavian vein into the left internal jugular vein, age- indeterminate. 9. Due to her chronic venous occlusion and thrombus from the left subclavian extending into the left internal jugular vein as well as her apex being hypokinetic we may have to consider long-term anticoagulation in this patient prior to discharge once she is underwent left cardiac catheterization and possible permanent pacemaker placement. 10. If the patient's bradycardia improves following left cardiac catheter ization then she may not need to proceed with permanent pacemaker. We will continue to keep her on telemetry and monitor her bradycardia/asystolic pauses. 11. The patient does have dementia. 12. Further recommendations were made pending the patient's response to treatment and the results of her left cardiac catheterization today. Thank you for the opportunity to have participate in the care of this patient. All recommendations and orders are per . Addendum: [facility] shows: Severe disease in the proximal LAD as described above with successful stenting revealed reducing the lesion to 0% with 1 drug-eluting stent Moderate to severe disease in the circumflex artery which is best managed medically given the bifurcating nature of the stenoses combined with tortuosity and extensive calcification Severe disease in the proximal to mid right coronary artery as described above successful stenting of the ostial proximal to mid right coronary severe disease reduced to 0% with 2 contiguous drug-eluting stents PLAN 1. Plavix and aspirin 2. LDL less than 55 to be 2 that high intensity statin 3. Patient will likely be brought back to the [facility] tomorrow for placement of pacemaker due to symptomatic bradycardia 4. Cardiac rehabilitation following postoperative healing of the pacemaker 5. Avoidance of tobacco products
[2024-05-04] MEDS: FENTANYL 100MCG/2ML VIAL 25 MCG IV (14:37)
[2024-05-04] MEDS: MIDAZOLAM HCL 1MG/1ML 5ML VIAL 1 MG IV (14:39)
[2024-05-04] MEDS: IOPAMIDOL-370 (76%);100ML BOTTLE 110 ML IV (14:40)
[2024-05-04 14:41] LABS: CATHL Activated Clotting Time > 400 SEC (74-125)
[2024-05-04] MEDS: CEFTRIAXONE SODIUM 1 GM in 0.9 % SODIUM CHLORIDE 50 ML IV (15:26)
--- NOTE | 2024-05-04 15:39 | PC.NURSE ---
AOX4 TODAY ABLE TO ANSWER QUESTIONS AND FOLLOW COMMANDS. HEART CATH TODAY RIGHT RADIAL APPROACH, 3 STENTS RECEIVED. TOLERATING ROOM AIR. CARDIOLOGY PLANNING FOR PACEMAKER PLACEMENT TOMORROW. PT AND FAMILY ARE AGREEABLE. NSR WITH EPISODES OF EXTREME BRADYCARDIA NOTED THROUGHOUT THE SHIFT TODAY. FAMILY HAS REMAINED AT THE BEDSIDE.
[2024-05-04 17:32] LABS: POC Glucose,Bedside 112 (70-110)
--- NOTE | 2024-05-04 19:24 | CA_ITS ---
APPROVED REPORT EXAM: Comprehensive 2D, Doppler, and color-flow Echocardiogram Make Up Operator Helper: Joanne Campbell RVT Ht: 5 ft 1 in Wt: 130lbs BSA: 1.57 BP: 111/50 mmHg Indications: CHF,CAD,ABN EKG,COPD,SMOKER,DM,HTN,HLD 2D Dimensions IVSd 1.88 cm F: 0.6-1.0 LVEF (Visual) 59.80 % PWd 1.15 cm F: 0.6 - 1.0 LA Volume 79.10 mL LVDd 4.05 cm F: 3.9 - 5.3 LA Volume Index 50.38 mL/m2 (M/F) 16-34 LVDs 2.78 cm F: 2.2 - 3.5 EF AP4 45.10 % Left Atrium 4.50 cm F: 2.7 - 3.8 GL Strain -10.3 % RVID Base (AP4) 1.87 cm (M/F) 2.5-4.1 LVOT 1.84 cm (M/F) 1.5-2.5 M-Mode Dimensions LVDd 4.05 cm (3.5-5.7) Ao Diam 2.84 cm (2.0-3.7) LVDs 2.78 cm (3.5-5.7) IVSd 1.88 cm (0.6-1.1) PWd 1.15 cm (0.6-1.1) FS 31.40% TAPSE 1.83 (<1.7) LV Diastology E Decel Time 150 (160-240 msec) E/A Ratio 1.2 MED E' 6.5 (>= 7 cm/sec) E'/MED E' Ratio 16.60 (<= 14) LAT E' 7.3 (>= 10 cm/sec) E/LAT E' Ratio 14.78 (<= 14) Aortic Valve LVOT Max 105.0 (70-110 cm/s) FLEX Index 0.96 cm2/m2 LVOT VTI 22.15 cm AoV Peak Ron. 212.0 (50-130 cm/s) AO Peak GR. 14.60 mmHg AO Mean GR. 8.50 (<5 mmHg) AO VTI 39.1 (18-25 cm) FLEX (VTI) 1.51 (2.5-4.5 cm2) Mitral Valve MV E Max Ron. 108.0 (40-130 cm/s) MV A Velocity 91.0 (40-130 cm/s) E/A Ratio 1.18 MV Decel. Time 150 (160-240 ms) Tricuspid Valve TR P. Velocity 245.00 cm/s RAP Estimate 10.00 mmHg RVSP 34.00 mmHg Left Ventricle The left ventricle is normal size. The left ventricular systolic function is normal. The left ventricular ejection fraction is within the normal range. There is increased LV wall thickness. There is moderate hypokinesis of the distal septal and inferoseptal LV jacobson. Transmitral Doppler flow pattern suggests impaired LV relaxation. LVEF is 55%. Right Ventricle The right ventricle is normal size. The right ventricular systolic function is normal. Atria Left atrium is severely dilated. The right atrium size is normal. There is no Doppler evidence of interatrial shunt. Aortic Valve The aortic valve is mildly thickened. Mild aortic stenosis. Peak velocity 2.3 m/s. Mean AV gradient 9 mmHg. Max AV gradient 21 mmHg. FLEX by continuity equation is 1.6 cm???. Mild aortic regurgitation. Mitral Valve Mild mitral annular calcification. The mitral valve leaflets are mildly thickened. No evidence of mitral valve stenosis. Mild mitral regurgitation. Tricuspid Valve The tricuspid valve leaflets are thin and pliable. Mild tricuspid regurgitation. RVSP is normal. Pulmonic Valve The pulmonary valve is normal in structure. Trace pulmonic regurgitation. Great Vessels The aortic root is normal in size. The ascending aorta is not well-visualized. IVC is normal in size and collapses >50% with inspiration. Pericardium There is no pericardial effusion. Other Information Study Quality: Fair Conclusion Normal biventricular systolic function. Moderate hypokinesis of the distal septal and inferoseptal LV jacobson. Severe LA dilation. Mild AI, mild MR, mild TR. Mild (peak velocity 2.3 m/s. Mean AV gradient 9 mmHg. Max AV gradient 21 mmHg. FLEX by continuity equation is 1.6 cm???). Electronically signed by : Triny Mao MD 05/05/2024 13:12:25
[2024-05-04] MEDS: ATORVASTATIN 10MG TABLET 10 MG PO (20:15)
[2024-05-04] MEDS: DONEPEZIL 5MG TAB 5 MG PO (20:15)
[2024-05-04] MEDS: AMITRIPTYLINE 50MG TABLET 50 MG PO (20:15)
--- NOTE | 2024-05-04 20:24 | PC.NURSE ---
Attempted to take air from radialband, 2ml taken out, bleeding noted, 4ml replaced.
[2024-05-04 20:29] LABS: POC Glucose,Bedside 150 (70-110)
--- NOTE | 2024-05-04 21:12 | EXP.EVENT.NO ---
Problem. Patient's cath site right radial has not stopped bleeding.. There is a air wrist pressure device in place, but on each time of trying to remove 2 cc of air the catheter site begins to bleed.\ Plan.. Call Dr. Doss who got into touch with his nurse from the [employer]. She has called and talked to the nurse in the ICU. Plan to hold pressure for 10 minutes above the catheterization site and then once again tried to lower. If this does not work just to leave the pressure dressing in place, and be reevaluated in the morning exam examined the site of the catheterization site I see no signs of hematoma or bleeding as long as the pressure device is in place. The fingers all have brisk capillary refill normal movement with normal sensation.
--- NOTE | 2024-05-04 21:45 | PC.NURSE ---
Addendum entered by Jackie Sheth RN 05/04/24 21:54: Went in to check site for bleeding. No bleeding at this time. Original Note: Held pressure for 10 minutes, took 2 ml of air out, no bleeding noted at this time. Good cap refill and able to move fingers freely.
--- NOTE | 2024-05-04 23:28 | PC.NURSE ---
2ml air taken out at this time, no bleeding noted.
[2024-05-05] VITALS: BP 117/55; PULSE 62; RESP 16; TEMP 36.9; O2SAT 96
--- NOTE | 2024-05-05 01:08 | PC.NURSE ---
2ml air taken out of radialband at this time. No bleeding noted.
--- NOTE | 2024-05-05 02:21 | PC.NURSE ---
2ml air taken out of radialband, no bleeding noted.
--- NOTE | 2024-05-05 03:31 | PC.NURSE ---
2ml air taken out of radialband, no bleeding noted.
[2024-05-05 04:00] VITALS: BP 127/61; PULSE 75; RESP 16; TEMP 36.8; O2SAT 99; BMI 23.9
[2024-05-05 04:10] VITALS: PULSE 65
--- NOTE | 2024-05-05 04:41 | PC.NURSE ---
Went in to take more air from radialband, band was under pillow and not on arm. No bleeding noted. 2x2 and tegaderm applied.
--- NOTE | 2024-05-05 06:42 | PC.NURSE ---
Alert to name and birthday only. Ambulates to the restroom with 1 assist. Radialband is off, dressing CDI. HR stable throughout night, a couple occasions the HR did drop to low 40s, but quickly recovered to 60-70. Daughter remains at the bedside. Call light in reach.
[2024-05-05 07:15] LABS: Basophils % 0.4 % (0.1-2.0); Eosinophils % 0.8 % (0.1-12.0); Hematocrit 35.2 % (37.0-47.0); Hemoglobin 11.1 g/dL (12.2-16.2); Lymphocytes # 1.3 K/mm3 (0.7-4.5); Lymphocytes % 24.7 % (10-50); Mean Corpuscular HGB Conc 31.5 g/dL (31.8-35.4); Mean Corpuscular Hemoglobin 28.3 pg (27.0-31.2); Mean Corpuscular Volume 89.8 fl (81-99); Mean Platelet Volume 9.5 fl (7.4-10.4); Monocytes # 0.2 K/mm3 (0.1-1.0); Monocytes % 4.4 % (1.7-9.3); Neutrophils # 3.6 K/mm3 (1.8-7.8); Neutrophils % 69.7 % (37.0-80.0); Platelet Count 142 K/mm3 (142-424); Red Blood Count 3.92 M/mm3 (4.20-5.40); Red Cell Distribution Width 17.1 % (11.5-17.5); White Blood Count 5.2 K/mm3 (4.8-10.8)
[2024-05-05 07:46] LABS: Blood Urea Nitrogen 14 mg/dl (7-17); Calcium 8.2 mg/dl (8.4-10.2); Carbon Dioxide 21 mmol/L (22.0-30.0); Chloride 109 mmol/L (98-107); Creatinine Clearance Estimated 32 mL/min (50-200); Estimated Glomerular Filt Rate 43 ml/min (>60); GFR (African American) 52 ML/MIN (>60); Glucose 145 mg/dl (74-100); Sodium 138 mmol/L (136-145)
--- NOTE | 2024-05-05 07:48 | EXP.DC.SUM ---
General Admission date:: 05/03/24 Discharge date: 05/05/24 HPI HPI HPI: This 84-year-old patient who lives alone, noted over the past 2 weeks that on arising her ears would get hot she would get dizzy and feel weak. This would improve and she was able to do things but became more short of breath. 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 Dr. Ovalle spoke with the ER physician and agreed that she needed to be admitted. With plan for cardiology consult and potential echocardiogram in the a.m.. Patient presently in the ICU in no distress alert oriented and eating without any difficulty. On monitor still shows rate of junctional at 55 bpm, patient asymptomatic while lying in bed with head up Hospital Course Hospital Course Hospital Course: Ms. Skelton is an 84-year-old female with worsening shortness of breath over the past 2 weeks. Presented to the ER for evaluation. 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 Admitted to medicine after discussion with the ER. Cardiology evaluating, plan for left heart cath versus pacemaker placement today. Problems addressed as follows: Symptomatic bradycardia Junctional rhythm New onset CHF -Cardiology consulted, recommended admission and further workup. Patient was taken for left heart cath on 05/04/2024. Found to have severe disease in RCA and LAD. Received 3 drug-eluting stents. Monitored on telemetry overnight. Had improvement in her heart rate. Normal sinus rhythm on EKG the morning of discharge with heart rate 60-80. No indication for pacemaker placement at this time. Cardiology does recommend a 2-week event monitor. Placed prior to discharge. Echo was obtained preliminarily showing some wall motion abnormalities and slight decrease in EF. Formal read still pending. - TSH normal at 1.57. -Treatment for hypertension with irbesartan 150 mg daily. Continue goal-directed therapy with dual antiplatelet therapy including aspirin 81 mg daily and Plavix 75 mg daily. - Necessitating 2 week event monitor due to bradycardia and heart block on admission prior to LHC and EDSON placement. Needs monitoring closely for recurrent heart block. UTI: Urinalysis grossly abnormal. Urine culture growing 70-80k gram-negative rods. Initially treated with ceftriaxone. Transition to cefdinir to complete 7 days total of antibiotics. Diabetes: A1c 6.8. Controlled with diet. No indication for medications at this time. Reevaluate as an outpatient with repeat A1c in 3 months. Thoracic aortic aneurysm, the aorta is thickened enlarged with large amounts of calcium throughout the thoracic area. Patient being seen by cardiology, patient is stable at this point in time and no treatment is needed presently. Will need monitoring after discharge Dementia: Complicates all aspects of her care Total time spent on discharge 32 minutes in counseling, documentation, chart review, and direct care with patient. Exam Data for Last 24 hours Vital signs and Labs for Last 24 Hours: Temp Pulse Resp BP Pulse Ox O2 Del Method 98.2 F 65 16 127/61 99 Room Air 05/05/24 04:00 05/05/24 04:10 05/05/24 04:00 05/05/24 04:00 05/05/24 04:00 05/05/24 06:42 Laboratory Results - last 24 hr 05/04/24 05:31: TSH 1.57, Free T4 1.11 05/04/24 12:42: POC Glucose 142 H 05/04/24 14:12: Activated Clotting Time > 400 H* 05/04/24 16:43: POC Glucose 112 H 05/04/24 19:24: POC Glucose 150 H 05/05/24 05:27: WBC 5.2, RBC 3.92 L, Hgb 11.1 L, Hct 35.2 L, MCV 89.8, MCH 28.3, MCHC 31.5 L, RDW 17.1, Plt Count 142, MPV 9.5, Neut % (Auto) 69.7, Lymph % (Auto) 24.7, [place] % (Auto) 4.4, Eos % (Auto) 0.8, Baso % (Auto) 0.4, Neut # (Auto) 3.6, Lymph # (Auto) 1.3, [place] # (Auto) 0.2, Eos # (Auto) 0.0, Baso # (Auto) 0.0 I & O for Last 24 hours: Intake & Output 05/02/24 05/03/24 05/04/24 05/05/24 23:59 23:59 23:59 23:59 Intake Total 960 / 960 Output Total 0 / 0 0 / 0 0 / 0 Balance 0 / 180 960 / 960 0 / 0 Weight 58.967 kg 58.967 kg 58.967 kg Microbiology Reports for the Last 24 Hours: Microbiology 05/03/24 17:23 Urine,Clean Catch Urine Culture - Preliminary Constitutional Constitutional: no acute distress and average body habitus *Routine HEENT Exam Head: Present normocephalic Eye: Present EOMI and PERRL ENT: Present mucous membranes moist *Routine Neck Exam Neck: Present supple; Absent lymphadenopathy *Routine Respiratory Exam Respiratory: Present CTA bilaterally; Absent respiratory distress, rhonchi, wheezes or crackles *Routine Cardiovascular Exam Cardiovascular: Present RRR *Routine Abdominal Exam Abdominal: Present soft and normoactive bowel sounds; Absent tenderness *Routine Rectal Exam Patient deferred: visual exam *Routine Exam Patient deferred: external exam *Routine Extremities Exam Extremities: Absent cyanosis, clubbing or edema Comments: Right wrist with bandage in place. Small ecchymoses, no significant hematoma. No active bleeding. *Routine Skin Exam Skin: Present intact and warm; Absent rash *Routine Neurological Exam Neurological: Present alert; Absent altered mental status or abnormal gait Comments: Oriented to self. Knows she is in the hospital. Baseline mentation Results Data Completed and Pending Labs on day of discharge: Labs from last 24 hours 05/05/24 05/04/24 05/04/24 05:27 19:24 16:43 WBC 5.2 RBC 3.92 L Hgb 11.1 L Hct 35.2 L MCV 89.8 MCH 28.3 MCHC 31.5 L RDW 17.1 Plt Count 142 MPV 9.5 Neut % (Auto) 69.7 Lymph % (Auto) 24.7 [place] % (Auto) 4.4 Eos % (Auto) 0.8 Baso % (Auto) 0.4 Neut # (Auto) 3.6 Lymph # (Auto) 1.3 [place] # (Auto) 0.2 Eos # (Auto) 0.0 Baso # (Auto) 0.0 Activated Clotting Time POC Glucose 150 H 112 H TSH Free T4 05/04/24 05/04/24 05/04/24 14:12 12:42 05:31 WBC RBC Hgb Hct MCV MCH MCHC RDW Plt Count MPV Neut % (Auto) Lymph % (Auto) [place] % (Auto) Eos % (Auto) Baso % (Auto) Neut # (Auto) Lymph # (Auto) [place] # (Auto) Eos # (Auto) Baso # (Auto) Activated Clotting Time > 400 H* POC Glucose 142 H TSH 1.57 Free T4 1.11 Preliminary micro results at discharge 05/03/24 17:23 Urine Culture - Preliminary Urine,Clean Catch DS: Diagnosis Discharge Diagnosis (1) DVT (deep venous thrombosis): Status: Acute Code(s): I82.409 - Acute embolism and thrombosis of unspecified deep veins of unspecified lower extremity Qualifiers: Chronicity: chronic DVT location: non-extremity vein Qualified Code(s): I82.91 - Chronic embolism and thrombosis of unspecified vein (2) GTZ (dyspnea on exertion): Status: Acute Code(s): R06.09 - Other forms of dyspnea (3) Junctional bradycardia: Status: Acute Code(s): R00.1 - Bradycardia, unspecified (4) UTI (urinary tract infection): Status: Acute Code(s): N39.0 - Urinary tract infection, site not specified (5) Pulmonary arterial hypertension: Status: Acute Code(s): I27.21 - Secondary pulmonary arterial hypertension (6) CHF (congestive heart failure): Status: Acute Code(s): I50.9 - Heart failure, unspecified Qualifiers: Heart failure type: biventricular Qualified Code(s): I50.82 - Biventricular heart failure (7) Low back pain with sciatica: Status: Acute Code(s): M54.40 - Lumbago with sciatica, unspecified side Qualifiers: Back pain laterality: left Chronicity: unspecified Sciatica laterality: sciatica of left side Qualified Code(s): M54.42 - Lumbago with sciatica, left side (8) Aortic heart murmur: Status: Acute Code(s): I35.8 - Other nonrheumatic aortic valve disorders (9) Coronary artery disease: Status: Acute Code(s): I25.10 - Atherosclerotic heart disease of [place] coronary artery without angina pectoris Qualifiers: Associated angina: with other forms of angina Coronary Disease-Associated Artery/Lesion type: [place] artery [place] vs. transplanted heart: [place] heart Qualified Code(s): I25.118 - Atherosclerotic heart disease of [place] coronary artery with other forms of angina pectoris (10) Abnormal electrocardiogram [ECG] [EKG]: Status: Acute Code(s): R94.31 - Abnormal electrocardiogram [ECG] [EKG] (11) Hyperlipidemia: Status: Acute Code(s): E78.5 - Hyperlipidemia, unspecified Qualifiers: Hyperlipidemia type: mixed hyperlipidemia Qualified Code(s): E78.2 - Mixed hyperlipidemia (12) Diabetes mellitus: Status: Acute Code(s): E11.9 - Type 2 diabetes mellitus without complications Qualifiers: Diabetes mellitus complication status: without complication Diabetes mellitus custodial insulin use: without 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 Diabetes mellitus type: type 2 Qualified Code(s): E11.9 - Type 2 diabetes mellitus without complications Meds Home Medications and Allergies Home Medications ?Medication ?Instructions ?Recorded ?Confirmed ?Type clopidogrel 75 mg tablet 75 mg PO DAILY 04/21/21 05/03/24 History linagliptin 5 mg tablet (Tradjenta) 5 mg PO DAILY 08/15/22 05/03/24 History amitriptyline 50 mg tablet 50 mg PO HS 05/03/24 05/04/24 History atorvastatin 10 mg tablet 10 mg PO HS 05/03/24 05/03/24 History donepezil 5 mg tablet 5 mg PO HS 05/03/24 05/03/24 History furosemide 20 mg tablet 20 mg PO DAILY 05/03/24 05/03/24 History rivastigmine 4.6 mg/24 hour 4.6 mg transdermal DAILY 05/03/24 05/03/24 History transdermal patch (Exelon Patch) hydrocortisone 2.5 % topical cream 1 applic topical BID 05/04/24 05/04/24 History with perineal applicator latanoprost 0.005 % eye drops 1 drp Eye-Both HS 05/04/24 05/04/24 History aspirin 81 mg tablet,delayed 81 mg PO DAILY 30 days #30 tabs 05/05/24 Rx release cefdinir 300 mg capsule 300 mg PO BID 5 days #10 caps 05/05/24 Rx irbesartan 150 mg tablet 150 mg PO DAILY 30 days #30 tabs 05/05/24 Rx New Prescriptions to Start Prescriptions: Tray Rodrigues cefdinir Tray Ovalle irbesartan Tray Ovalle Allergies Allergy/AdvReac Type Severity Reaction Status Date / Time Sulfa (Sulfonamide Allergy Unknown Unknown Verified 08/15/22 13:38 Antibiotics) allergy reaction Penicillins Allergy Verified 08/15/22 13:38 Discharge Plan Disposition Patient Disposition: Home, Self-Care Condition: Fair Discharge Order Discharge Orders: Discharge Order (Routine); Ordered 05/05/24 Ordered By: Tray Ovalle Follow up Plan Follow up with: Randell Doss MD [Staff Physician] - 05/12/24 11:30 am ProviderValentín MD [Primary Care Provider] - 05/25/24 3:30 pm Prescriptions/Medication Reconciliation: New aspirin 81 mg Tablet,Delayed Release (Dr/Ec) 81 mg PO DAILY 30 Days Qty: 30 0RF irbesartan 150 mg Tablet 150 mg PO DAILY 30 Days Qty: 30 0RF cefdinir 300 mg capsule 300 mg PO BID 5 Days Qty: 10 0RF Continued Tradjenta 5 mg tablet 5 mg PO DAILY clopidogrel 75 MG tablet 75 mg PO DAILY donepezil 5 mg tablet 5 mg PO HS atorvastatin 10 mg tablet 10 mg PO HS amitriptyline 50 mg tablet 50 mg PO HS furosemide 20 mg tablet 20 mg PO DAILY rivastigmine [Exelon Patch] 4.6 mg/24 hour patch 24 hour 4.6 mg transdermal DAILY Patient Comments: Apply 1 patch every day by transdermal route for 30 days, for MEMORY. latanoprost 0.005 % drops 1 drp Eye-Both HS hydrocortisone 2.5 % cream with perineal applicator 1 applic topical BID Discontinued losartan 50 mg tablet 50 mg PO DAILY Problem Reconciliation Problems Reviewed?: Yes Patient Discharge Instructions ACTIVITY: Continue current activity DIET: continue same diet Patient Instructions: DI for Heart Failure, DI for Cardiac Catheterization, DI for Urinary Tract Infection (UTI), DI for Surgical Site Infection Print Language: Polish Providers Primary Care Provider: Provider,Referral Admit Provider: Tray Ovalle Attending Provider: Tray Ovalle
[2024-05-05 08:00] VITALS: BP 168/84; PULSE 70; PULSE 82; RESP 18; TEMP 36.4; O2SAT 95
[2024-05-05] MEDS: ASPIRIN EC 81MG TABLET 81 MG PO (08:12)
[2024-05-05] MEDS: IRBESARTAN 75MG TABLET 75 MG PO (08:12)
[2024-05-05] MEDS: CLOPIDOGREL 75MG TAB 75 MG PO (08:12)
--- NOTE | 2024-05-05 08:34 | ECG_ITS ---
APPROVED REPORT Exam: Resting ECG HR:73 bpm ECG Measurements Heart Rate 73 AXES IL 199 P 79 QRSd 102 QRS -29 QT 367 T 126 QTc 393 Conclusion SINUS RHYTHM LEFT VENTRICULAR HYPERTROPHY AND ST-T CHANGE [VOLTAGE CRITERIA PLUS ST/T ABNORMALITY] POSSIBLE SEPTAL MYOCARDIAL INFARCTION , OF INDETERMINATE AGE [30 ms Q WAVE IN V1/V2] ABNORMAL ECG UNCONFIRMED REPORT Electronically signed by : Rick West MD 05/05/2024 18:17:50
--- NOTE | 2024-05-05 11:39 | EXP.CARD.PN ---
Subjective Subjective Date: 05/05/24 Time: 10:30 Principal diagnosis: Angina, CAD, bradycardia Interval history: This is an 84-year-old female who presented to the emergency department with dizziness and weakness. The patient was found to be in a junctional rhythm and had some bradycardia and asystolic pauses of 2 to 3 seconds. She was admitted for consideration of a pacemaker. However, the patient had an abnormal EKG as well as an abnormal echocardiogram with some atypical angina symptoms and underwent left cardiac catheterization yesterday. The patient had stenting to her LAD and right coronary arteries. She tolerated the procedure well and will be on Plavix and aspirin for dual antiplatelet therapy. This morning she denies any chest pain or pressure. She denies any shortness of breath or edema. She denies any fever, chills, nausea, vomiting, diarrhea, PND or orthopnea. She states that her dizziness and weakness have improved. Her bradycardia has improved overnight and her heart rate has been anywhere from 60 to 80 bpm. She is now in sinus rhythm and no asystolic pauses noted. Exam Data for Last 24 hours Vital signs and Labs for Last 24 Hours: Temp Pulse Resp BP Pulse Ox O2 Del Method 97.6 F 82 18 168/84 H 95 Room Air 05/05/24 08:00 05/05/24 08:00 05/05/24 08:00 05/05/24 08:00 05/05/24 08:00 05/05/24 08:52 Laboratory Results - last 24 hr 05/03/24 17:23: Urine Color Yellow, Urine Appearance Clear, Urine pH 5.5, Ur Specific [place] 1.020, Urine Protein Negative, Urine Glucose (UA) Negative, Urine Ketones Negative, Urine Blood Negative, Urine Nitrate Positive, Urine Bilirubin Negative, Urine Urobilinogen 0.2, Ur Leukocyte Esterase 1+ A, Urine RBC Occasional, Urine WBC 10-20, Ur Squamous Epith Cells 20-50, Urine Bacteria 2+ 05/04/24 05:31: TSH 1.57, Free T4 1.11 05/04/24 12:42: POC Glucose 142 H 05/04/24 14:12: Activated Clotting Time > 400 H* 05/04/24 16:43: POC Glucose 112 H 05/04/24 19:24: POC Glucose 150 H 05/05/24 05:27: WBC 5.2, RBC 3.92 L, Hgb 11.1 L, Hct 35.2 L, MCV 89.8, MCH 28.3, MCHC 31.5 L, RDW 17.1, Plt Count 142, MPV 9.5, Neut % (Auto) 69.7, Lymph % (Auto) 24.7, [place] % (Auto) 4.4, Eos % (Auto) 0.8, Baso % (Auto) 0.4, Neut # (Auto) 3.6, Lymph # (Auto) 1.3, [place] # (Auto) 0.2, Eos # (Auto) 0.0, Baso # (Auto) 0.0, Sodium 138, Potassium 4.0, Chloride 109 H, Carbon Dioxide 21 L, Anion Gap 12.0, BUN 14, Creatinine 1.20 H, Estimated Creat Clear 32, Estimated GFR 43 L, Est GFR ( Amer) 52 L, Glucose 145 H, Calcium 8.2 L Temp Pulse Resp BP Pulse Ox O2 Del Method 98 F 58 L 19 123/53 L 97 Room Air 05/04/24 11:54 05/04/24 14:24 05/04/24 14:24 05/04/24 14:24 05/04/24 14:24 05/04/24 09:00 Laboratory Results - last 24 hr 05/03/24 14:10: WBC 6.2, RBC 4.19 L, Hgb 11.6 L, Hct 37.3, MCV 89.0, MCH 27.7, MCHC 31.1 L, RDW 17.3, Plt Count 167, MPV 9.9, Neut % (Auto) 58.6, Lymph % (Auto) 34.4, [place] % (Auto) 5.3, Eos % (Auto) 0.5, Baso % (Auto) 1.2, Neut # (Auto) 3.6, Lymph # (Auto) 2.1, [place] # (Auto) 0.3, Eos # (Auto) 0.0, Baso # (Auto) 0.1, Sodium 138, Potassium 4.6, Chloride 108 H, Carbon Dioxide 21 L, Anion Gap 13.6, BUN 16, Creatinine 1.40 H, Estimated Creat Clear 29, Estimated GFR 36 L, Est GFR ( Amer) 43 L, Glucose 161 H, Calcium 8.3 L, Total Bilirubin 0.7, AST 69 H, ALT 26, Alkaline Phosphatase 82, Troponin I < 0.01, NT-Pro-B Natriuret Pep 5690 H, Total Protein 7.1, Albumin 4.1, Globulin 3.0, Albumin/Globulin Ratio 1.4 05/03/24 17:23: Urine Color Yellow, Urine Appearance Clear, Urine pH 5.5, Ur Specific [place] 1.020, Urine Protein Negative, Urine Glucose (UA) Negative, Urine Ketones Negative, Urine Blood Negative, Urine Nitrate Positive, Urine Bilirubin Negative, Urine Urobilinogen 0.2, Ur Leukocyte Esterase 1+ A, Urine RBC Occasional, Urine WBC 10-20, Ur Squamous Epith Cells 20-50, Urine Bacteria 2+ 05/03/24 17:40: Troponin I < 0.01 05/03/24 18:17: Hemoglobin A1c 6.8 H 05/03/24 20:40: POC Glucose 141 H 05/03/24 20:45: Troponin I < 0.01 05/04/24 05:31: WBC 4.5 L D, RBC 4.09 L, Hgb 11.2 L, Hct 36.4 L, MCV 88.9, MCH 27.4, MCHC 30.8 L, RDW 17.6 H, Plt Count 137 L, MPV 10.2, Neut % (Auto) 54.8, Lymph % (Auto) 37.3, [place] % (Auto) 6.4, Eos % (Auto) 0.8, Baso % (Auto) 0.6, Neut # (Auto) 2.5, Lymph # (Auto) 1.7, [place] # (Auto) 0.3, Eos # (Auto) 0.0, Baso # (Auto) 0.0, Sodium 139, Potassium 4.3, Chloride 109 H, Carbon Dioxide 25, Anion Gap 9.3, BUN 16, Creatinine 1.30 H, Estimated Creat Clear 30, Estimated GFR 39 L, Est GFR ( Amer) 47 L, Glucose 126 H D, Calcium 8.4, Magnesium 2.2, Total Bilirubin 0.4, AST 30 D, ALT 19 D, Alkaline Phosphatase 75, Total Protein 6.5, Albumin 3.6 D, Globulin 2.9, Albumin/Globulin Ratio 1.2, Triglycerides 194 H, Cholesterol 91 L, LDL Cholesterol Direct 30.30 L, VLDL Cholesterol 39, HDL Cholesterol 33 L, Cholesterol/HDL Ratio 2.8, TSH 1.57, Free T4 1.11 05/04/24 06:25: POC Glucose 136 H 05/04/24 12:42: POC Glucose 142 H I & O for Last 24 hours: Intake & Output 05/02/24 05/03/24 05/04/24 05/05/24 23:59 23:59 23:59 23:59 Intake Total 960 / 960 270 / 270 Output Total 0 / 0 0 / 0 0 / 0 Balance 0 / 180 960 / 960 270 / 270 Weight 130 lb 130 lb 130 lb Intake & Output 05/01/24 05/02/24 05/03/24 05/04/24 23:59 23:59 23:59 23:59 Intake Total 180 / 180 Output Total 0 / 0 0 / 0 Balance 0 / 180 180 / 180 Weight 130 lb 130 lb Microbiology Reports for the Last 24 Hours: Microbiology 05/03/24 17:23 Urine,Clean Catch Urine Culture - Preliminary Gram Negative Rods Microbiology 05/03/24 17:23 Urine,Clean Catch Urine Culture - Preliminary Narrative: EKG is junctional rhythm with a rate of 52 bpm and anterior septal ST/T wave abnormalities Constitutional Constitutional: no acute distress and average body habitus *Routine HEENT Exam Head: Present normocephalic and atraumatic ENT: Present mucous membranes moist *Routine Neck Exam Neck: Present supple, full ROM and normal carotid upstroke; Absent JVD, carotid bruit or lymphadenopathy *Routine Respiratory Exam Respiratory: Present CTA bilaterally, normal respiratory effort, able to speak in complete sentences and symmetric chest movement *Routine Cardiovascular Exam Cardiovascular: Present RRR, Normal S1 and Normal S2; Absent murmur or gallop *Routine Abdominal Exam Abdominal: Present soft and normoactive bowel sounds; Absent tenderness, distended or organomegaly *Routine Extremities Exam Extremities: Present full ROM, pulses intact and normal capillary refill; Absent cyanosis, clubbing or edema *Routine Skin Exam Skin: Present intact and warm; Absent erythema *Routine Neurological Exam Neurological: Present alert, oriented X3 and CN II-XII intact; Absent sensory deficit or motor deficit Routine Psychiatric Exam Psychiatric: Present normal affect Progress Note: A&P Assessment and plan (1) Abnormal echocardiogram: Status: Acute (2) Symptomatic bradycardia: Status: Acute (3) Coronary artery disease: Status: Acute (4) Descending thoracic aortic aneurysm: Status: Acute (5) GTZ (dyspnea on exertion): Status: Acute (6) Junctional bradycardia: Status: Acute (7) Pulmonary arterial hypertension: Status: Acute (8) Abnormal electrocardiogram [ECG] [EKG]: Status: Acute (9) Hyperlipidemia: Status: Acute (10) Diabetes mellitus: Status: Acute (11) Hypertension: Status: Acute (12) Dementia: Status: Acute (13) DVT (deep venous thrombosis): Status: Acute Assessment and Plan Assessment and Plan for All Diagnoses:: Plan: 1. The patient was admitted to the hospital initially for bradycardia and a junctional rhythm as well as asystolic pauses for consideration of permanent pacemaker placement. However she did have an abnormal EKG and abnormal echocardiogram and symptoms consistent with atypical angina. She underwent left cardiac catheterization yesterday and had stenting to the LAD with 1 drug-eluting stent and stenting to the right coronary artery with 2 drug-eluting stents. She will remain on aspirin and Plavix for dual antiplatelet therapy. 2. Since undergoing left cardiac catheterization with stenting the patient's heart rate has improved. Her heart rate has been anywhere from 60 to 80 bpm since left cardiac catheterization. She is now in sinus rhythm and no longer in a junctional rhythm. No asystolic pauses noted since cardiac stenting. No plans for permanent pacemaker placement at this time. The patient will need to be discharged with a 2-week event monitor to make sure she does not have any more episodes of bradycardia/junctional rhythm or asystolic pauses. 3. Coronary artery disease is likely stable. Continue dual antiplatelet therapy with Plavix and aspirin. 4. Her blood pressure is well-controlled. 5. Her LDL goal is less than 55. Her LDL is 30. She is on a statin. 6. The patient does have a descending thoracic aortic aneurysm measuring 4.2 cm. This will need to be reevaluated in 6 months. 7. 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 There is a filling defect/thrombus that extends from the left subclavian vein into the left internal jugular vein, age-indeterminate. 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 After 30 days of dual antiplatelet therapy it may be reasonable to stop her aspirin and switch her to Xarelto with her Plavix for anticoagulation due to these chronic DVTs and hypokinetic apex. This will be done on an outpatient basis. 8. The patient is stable for discharge home today from a cardiac standpoint with a 2-week event monitor in place. She can be discharged on the following cardiac medications: Aspirin 81 mg daily, Plavix 75 mg daily, Lipitor 10 mg p.o. nightly, Lasix 20 mg daily, irbesartan 150 mg p.o. daily. No beta-karin due to her recent bradycardia, junctional rhythm and asystolic pauses. 9. The patient will need to follow-up in cardiology clinic next week. Thank you for the opportunity to have participate in the care of this patient. All recommendations and orders are per Dr. Mao.
--- NOTE | 2024-05-07 13:42 | CARE MANAGER ---
Attempted to contact patient related to hospital discharge x2. No VM option. MINOR Sanderson
== END 2024-05-05 11:35 | disposition home or self-care (01) | DRG 322 ==
LOC: ER 15:43 → ICU 17:41
PROVIDERS: Internal Medicine; Nurse Practitioner Family; Physician Assistant; Admitting Provider Internal Medicine Adolescent Medicine; Emergency Provider Emergency Medicine; Visit Provider Internal Medicine Adolescent Medicine
PROC: 027135Z Dilation of Coronary Artery, Two Arteries with Two Drug-eluting Intraluminal Devices, Percutaneous Approach (ICD-10-PCS; principal; 2024-05-04 14:00)
DX: I25.118 Atherosclerotic heart disease of native coronary artery with other forms of angina pectoris (principal); N39.0 Urinary tract infection, site not specified; R00.1 Bradycardia, unspecified; I50.9 Heart failure, unspecified; I27.20 Pulmonary hypertension, unspecified; Z86.73 Personal history of transient ischemic attack (TIA), and cerebral infarction without residual deficits; I25.2 Old myocardial infarction; J44.9 Chronic obstructive pulmonary disease, unspecified; E78.5 Hyperlipidemia, unspecified; F17.210 Nicotine dependence, cigarettes, uncomplicated; Z95.5 Presence of coronary angioplasty implant and graft; Z86.718 Personal history of other venous thrombosis and embolism; I71.40 Abdominal aortic aneurysm, without rupture, unspecified; F03.90 Unspecified dementia, unspecified severity, without behavioral disturbance, psychotic disturbance, mood disturbance, and anxiety; I71.20 Thoracic aortic aneurysm, without rupture, unspecified; I45.5 Other specified heart block; M54.40 Lumbago with sciatica, unspecified side; E11.9 Type 2 diabetes mellitus without complications
CPT/HCPCS: 36415; 71046; 71275; 80048; 80053; 80061; 81001; 82962; 83036; 83735; 83880; 84439; 84443; 84484; 85025; 85347; 87086; 87088; 87186; 92928; 93005; 93270; 93306; 93454; 99152; 99153; 99285; C1725; C1769; C1874; C9600; J0696; J1200; J1644; J1940; J2250; J3010; Q9967

== ENCOUNTER 2024-05-08 11:16 | Inpatient (IN) | payer MEDICARE, SELFPAY ==
[2024-05-08] VITALS (12 sets, daily range): BP systolic 85–143; BP diastolic 53–92; PULSE 76–128; RESP 15–18; TEMP 36.4–36.9; O2SAT 96–100; BMI 24.7; BMI 23.2
--- NOTE | 2024-05-08 09:11 | ECG_ITS ---
APPROVED REPORT Exam: Resting ECG HR:120 bpm ECG Measurements Heart Rate 120 AXES QRSd 89 QRS -36 QT 278 T 129 QTc 350 Conclusion ATRIAL FLUTTER/TACHYCARDIA WITH RAPID VENTRICULAR RESPONSE LEFT AXIS DEVIATION [QRS AXIS < -30] ANTEROSEPTAL MYOCARDIAL INFARCTION , OF INDETERMINATE AGE [40+ ms Q WAVE IN V1-V4] MODERATE T-WAVE ABNORMALITY, CONSIDER LATERAL ISCHEMIA [-0.1+ mV T-WAVE IN I/aVL/V5/V6] ABNORMAL ECG Electronically signed by : LAURA MEDINA, 05/08/2024 14:22:47
--- NOTE | 2024-05-08 11:31 | XR_ITS ---
FINAL REPORT CLINICAL HISTORY: syncope, recent heart cath , placed 2 stents pt has on heart monitor COMPARISON: 05/03/2024 FINDINGS: The heart is at the upper limits of normal in size. The aorta is folded. The mediastinum is normal. There is no focal infiltrate or edema. There are no pleural effusions. There is no pneumothorax. There is no osseous abnormality. IMPRESSION: No acute cardiopulmonary process Reviewed, Interpreted and Dictated by Kalen Hughes MD Transcribed by Brooke Roman Authenticated and [facility]
--- NOTE | 2024-05-08 11:32 | ECG_ITS ---
APPROVED REPORT Exam: Resting ECG HR:114 bpm ECG Measurements Heart Rate 114 AXES QRSd 85 QRS -33 QT 277 T 136 QTc 345 Conclusion ATRIAL FLUTTER/TACHYCARDIA WITH RAPID VENTRICULAR RESPONSE LEFT AXIS DEVIATION [QRS AXIS < -30] SEPTAL MYOCARDIAL INFARCTION , PROBABLY OLD [40+ ms Q WAVE IN V1/V2] ST DEVIATION AND MODERATE T-WAVE ABNORMALITY, CONSIDER LATERAL ISCHEMIA [-0.1+ mV T-WAVE IN I/aVL/V5/V6] ABNORMAL ECG Atrial flutter with variable block, T wave inversion in V6 and lead I Electronically signed by : LAURA MEDINA, 05/08/2024 14:22:30
--- NOTE | 2024-05-08 11:32 | [facility].EDCP ---
Discharge Plan Disposition Patient Disposition: Admitted Prescriptions Prescriptions: No Action Tradjenta 5 mg tablet 5 mg PO DAILY clopidogrel 75 MG tablet 75 mg PO DAILY donepezil 5 mg tablet 5 mg PO HS atorvastatin 10 mg tablet 10 mg PO HS amitriptyline 50 mg tablet 50 mg PO HS furosemide 20 mg tablet 20 mg PO DAILY rivastigmine [Exelon Patch] 4.6 mg/24 hour patch 24 hour 4.6 mg transdermal DAILY Patient Comments: Apply 1 patch every day by transdermal route for 30 days, for MEMORY. latanoprost 0.005 % drops 1 drp Eye-Both HS hydrocortisone 2.5 % cream with perineal applicator 1 applic topical BID aspirin 81 mg Tablet,Delayed Release (Dr/Ec) 81 mg PO DAILY 30 Days Qty: 30 0RF irbesartan 150 mg Tablet 150 mg PO DAILY 30 Days Qty: 30 0RF cefdinir 300 mg capsule 300 mg PO BID 5 Days Qty: 10 0RF Referrals Follow up/Referrals: Cate Frederick [Primary Care Provider] - See instructions Clinical Impressions Clinical Impression: Atrial flutter, Adverse effects of medication Print Language Print Language: Yoruba Discharge ED Provider: Saul Fajardo HPI General Chief Complaint: Dizziness Stated Complaint: SOA Time Seen by Provider: 05/08/24 11:19 History of Present Illness HPI narrative: Patient is a 84-year-old female with past medical history of hypertension that I recently evaluated and admitted for symptomatic bradycardia who presents emergency department for evaluation of presyncope. History is obtained by family and patient at bedside. Patient underwent heart catheterization recently and got 3 stents. Per read of there cath report 05-04? patient had severe disease proximal LAD as well as disease in the right coronary artery and circumflex ultimately got 3 stents, dual antiplatelet therapy. She was successfully discharged and since then has had nonspecific intermittent dizzy spells when rising from a seated position. Today she was coming to see Dr. Doss for these symptoms and almost collapsed in the parking lot. Denies chest pain, vomiting, other acute complaints at this time. Echo performed on 05-04 normal biventricular function however severe left atrial dilatation. Rather than going to cardiology clinic she presents here for continued evaluation Related Data Home Medications ?Medication ?Instructions ?Recorded ?Confirmed clopidogrel 75 mg tablet 75 mg PO DAILY 04/21/21 05/08/24 linagliptin 5 mg tablet (Tradjenta) 5 mg PO DAILY 08/15/22 05/08/24 amitriptyline 50 mg tablet 50 mg PO HS 05/03/24 05/08/24 atorvastatin 10 mg tablet 10 mg PO HS 05/03/24 05/08/24 donepezil 5 mg tablet 5 mg PO HS 05/03/24 05/08/24 furosemide 20 mg tablet 20 mg PO DAILY 05/03/24 05/08/24 rivastigmine 4.6 mg/24 hour 4.6 mg transdermal DAILY 05/03/24 05/08/24 transdermal patch (Exelon Patch) hydrocortisone 2.5 % topical cream 1 applic topical BID 05/04/24 05/08/24 with perineal applicator latanoprost 0.005 % eye drops 1 drp Eye-Both HS 05/04/24 05/08/24 Previous Rx's ?Medication ?Instructions ?Recorded aspirin 81 mg tablet,delayed 81 mg PO DAILY 30 days #30 tabs 05/05/24 release cefdinir 300 mg capsule 300 mg PO BID 5 days #10 caps 05/05/24 irbesartan 150 mg tablet 150 mg PO DAILY 30 days #30 tabs 05/05/24 Allergies Allergy/AdvReac Type Severity Reaction Status Date / Time Sulfa (Sulfonamide Allergy Unknown Unknown Verified 05/08/24 11:37 Antibiotics) allergy reaction Penicillins Allergy Other Verified 05/08/24 11:37 [facility] Disclaimer: The information contained in this section may have been updated after the patient was seen, as this information can be updated by other users. Medical History (Updated 05/08/24 @ 14:04 by Saul Fajardo MD) Hypotension Atrial flutter Pre-syncope Descending thoracic aortic aneurysm Abnormal echocardiogram Diabetes mellitus Symptomatic bradycardia Dizziness Shortness of Breath Atypical angina COPD (chronic obstructive pulmonary disease) Hyperlipidemia Hypertension Aortic heart murmur Coronary artery disease Abnormal electrocardiogram [ECG] [EKG] Encounter for pre-operative cardiovascular clearance Surgical History History of coronary artery stent placement Family History Father Family history of myocardial infarction Social History Smoking Status: Never smoker second hand exposure: Yes alcohol intake: never substance use type: denies use current occupational status: other Travel in the last 8 weeks: None household members: spouse housing: house current occupation: [employer] current occupational exposures/hazards: No caffeine: Yes ROS Obtained: Yes Systems reviewed as appropriate & no additional complaints except as documented Physical Exam General General appearance: alert and in no apparent distress Head Head exam: atraumatic and normocephalic Eye Eye exam: Present PERRL and EOMI ENT ENT exam: Present mucous membranes moist Neck Neck exam: Present normal inspection Chest Chest inspection: Present normal inspection and symmetric chest wall rise Respiratory Respiratory exam: Present normal lung sounds bilaterally; Absent respiratory distress Cardiovascular Cardiovascular exam: Present regular rate and normal rhythm Abdominal Exam Abdominal exam: Present soft; Absent tenderness Extremities Exam Extremities exam: Present normal inspection Neurological Exam Neurological exam: Present alert Psychiatric Psychiatric exam: Present normal affect Skin Skin exam: Present warm and dry HEART Score HEART Score HEART Score assessment performed?: No History (anamnesis): Moderately suspicious ECG: Non-specific disturbance Age: >65 years Risk factors: Atherosclerosis history Critical Care Critical Care Time Critical Care Time: Yes Attestation: On 05/08/24, the high probability of a clinically significant, sudden or life threatening deterioration of the following system(s) required my full and direct attention, intervention and personal management. The time I documented below is in addition to time spent performing reported procedures but includes the following listed in this critical care notation. Total Time Total Critical Care Time: 35 Medical Decision Making Edwardo Inquiry Pt receiving controlled substance: No Vital Signs Vital Signs: 05/08/24 11:18 05/08/24 11:33 05/08/24 12:00 Temperature 97.6 F Temperature Source Oral Pulse Rate 84 111 H Pulse Rate [Left Radial] 128 H Respiratory Rate 18 17 16 Blood Pressure 98/77 L 103/56 L Blood Pressure [Right Arm] 114/92 H Blood Pressure Mean 71 Blood Pressure Mean [Right Arm] 99 Blood Pressure Source [Right Arm] Automatic Cuff Blood Pressure Position [Right Arm] Sitting 02 Sat by Pulse Oximetry 99 98 99 Oxygen Delivery Method Room Air Room Air 05/08/24 12:30 05/08/24 12:43 05/08/24 13:01 Temperature Temperature Source Pulse Rate 77 100 H 76 Pulse Rate [Left Radial] Respiratory Rate 16 16 18 Blood Pressure 88/53 L 85/63 L 87/57 L Blood Pressure [Right Arm] Blood Pressure Mean 61 67 60 Blood Pressure Mean [Right Arm] Blood Pressure Source [Right Arm] Blood Pressure Position [Right Arm] 02 Sat by Pulse Oximetry 96 98 99 Oxygen Delivery Method 05/08/24 13:30 Temperature Temperature Source Pulse Rate 108 H Pulse Rate [Left Radial] Respiratory Rate 15 Blood Pressure 106/62 L Blood Pressure [Right Arm] Blood Pressure Mean Blood Pressure Mean [Right Arm] Blood Pressure Source [Right Arm] Blood Pressure Position [Right Arm] 02 Sat by Pulse Oximetry 99 Oxygen Delivery Method Room Air Lab Data Labs: Lab Results 05/08/24 11:30: WBC 5.9, RBC 4.40, Hgb 12.3, Hct 39.6, MCV 90.0, MCH 27.8, MCHC 30.9 L, RDW 17.1, Plt Count 194 D, MPV 8.9, Neut % (Auto) 73.0, Lymph % (Auto) 20.1, [place] % (Auto) 5.5, Eos % (Auto) 0.9, Baso % (Auto) 0.5, Neut # (Auto) 4.3, Lymph # (Auto) 1.2, [place] # (Auto) 0.3, Eos # (Auto) 0.1, Baso # (Auto) 0.0, Sodium 137, Potassium 4.4, Chloride 103, Carbon Dioxide 23, Anion Gap 15.4 H, BUN 18 H, Creatinine 1.40 H, Estimated Creat Clear 30, Estimated GFR 36 L, Est GFR ( Amer) 43 L, Glucose 181 H, Calcium 8.9, Magnesium 2.1, Total Bilirubin 0.7, AST 32, ALT 25, Alkaline Phosphatase 102, Total Protein 7.5, Albumin 4.2, Globulin 3.3 H, Albumin/Globulin Ratio 1.3, Free T4 1.08, HIV 1&2 Antibody Rapid Nonreactive 05/08/24 11:30 05/08/24 11:30 Response Orders (Tests/Meds): ED MEDICATIONS Generic Name Dose Route Start Last Admin Trade Name Freq PRN Reason Stop Dose Admin Atorvastatin Calcium 10 mg 05/08/24 21:00 Atorvastatin 10mg Tablet PO 06/07/24 20:59 HS ABRAHAM Clopidogrel Bisulfate 75 mg 05/08/24 13:15 05/08/24 13:49 Clopidogrel 75mg Tab PO 06/07/24 13:14 75 mg DAILY ABRAHAM Administration Metoprolol Tartrate 25 mg 05/08/24 13:00 05/08/24 13:10 Metoprolol Tartrate 25mg Tablet PO 06/07/24 12:59 25 mg TID ABRAHAM Administration Rivaroxaban 15 mg 05/08/24 17:30 Rivaroxaban 10mg Tablet PO 06/07/24 17:29 QPMWITHMEAL ABRAHAM Sodium Chloride 10 ml 05/08/24 11:37 Sodium Chloride 0.9% 10ml Flush Syringe IV 06/07/24 11:36 NEEDED PRN Maintain IV Site Discontinued Medications Generic Name Dose Route Start Last Admin Trade Name Freq PRN Reason Stop Dose Admin Clopidogrel Bisulfate 75 mg 05/09/24 09:00 Clopidogrel 75mg Tab PO 06/08/24 08:59 DAILY ABRAHAM ORDERS Category Date Time Status Cardiology Consult [Consult to Cardiology] [CONS] Cons 05/08/24 12:21 Active Routine Cardiology Consult [Consult to Cardiology] [CONS] Cons 05/08/24 14:02 Active Routine CXR --portable [XR chest portable] Stat Exams 05/08/24 11:31 Completed CBC w/Auto Diff [Complete Blood Count Auto Diff] Stat Lab 05/08/24 11:30 Completed CMP [Comprehensive Metabolic Panel] Stat Lab 05/08/24 11:30 Results Complete Blood Count Auto Diff AMLAB Lab 05/09/24 06:00 Ordered Comprehensive Metabolic Panel AMLAB Lab 05/09/24 06:00 Ordered Free T4 (Free Thyroxine) Stat Lab 05/08/24 11:30 Completed HIV (1&2) Antibody Rapid Stat Lab 05/08/24 11:30 Completed Hep C Ab with Reflex to RNA Stat Lab 05/08/24 11:30 Received MG [Magnesium] Stat Lab 05/08/24 11:30 Results Magnesium AMLAB Lab 05/09/24 06:00 Ordered TSH [Thyroid Stimulating Hormone] Stat Lab 05/08/24 11:30 Results Trop I [Troponin I] Stat Lab 05/08/24 11:30 Results Troponin I Q3H Lab 05/08/24 14:45 Ordered Troponin I Q3H Lab 05/08/24 17:45 Ordered CA echo doppler complete Stat Y 05/08/24 12:20 Completed ECG Data Tracing #1: ECG Narrative: Independently interpreted by me, rate is 120, rhythm is irregular, axis is borderline rightward deviated, no ST elevation in anatomical contiguous leads, ST depression in V6 with T wave inversion. QTc 350. Tracing #2: ECG Narrative: Independently interpreted by me rate is 114, rhythm is regular, axis is borderline leftward deviated, no ST elevation in anatomical contiguous leads, T wave inversion in V6 and lead I. QTc 345 MDM Narrative Medical Decision Narrative: In summary patient is a 84-year-old female past medical history described above who presents emergency department for evaluation of presyncope. Patient is hemodynamically stable upon arrival, heart rate ranging between 110-140. EKG is read as a flutter however it appears that patient either has sinus tachycardia with arrhythmia versus a flutter with variable block although there are no discrete sawtooth waves. There are discrete P waves that would exclude the diagnosis of atrial fibrillation with rapid ventricular spots. Patient has no chest pain and no other acute complaints. It is with rising from a seated position therefore I suspect that patient has a combination of cardiogenic and vasovagal syncope where she is mounting a maladaptive tachycardic response. She does not appear infectious or have any other signs or symptoms that would explain this tachycardia other than her recent reperfusion with stenting. The case we discussed with cardiology and they will evaluate the patient. Workup will be conducted with hematologic labs, troponin, chest x-ray in the meantime. Chest x-ray informally interpreted by me, no acute lobar opacities or large pneumothorax. [employer] event monitor in place. Initial workup reviewed by me, hematologic labs are nonactionable, no significant leukocytosis. Remainder of hematologic labs are nonactionable, slightly elevated creatinine, no BOWEN per rifle criteria, no critical electrolyte abnormality. Case was discussed with cardiology, they believe this is a flutter with variable block. Patient has also been doubling up on irbesartan and losartan when she is only supposed to be taking irbesartan. They recommend admission for washout of antihypertensives and transition to beta-blockade on top of irbesartan. Case discussed with hospital medicine regarding management they will meet the patient their service for continued evaluation at this time. Heart score not conducted at time of admission given that troponin was still pending due to laboratory delay, there is no ongoing chest pain so my concern for acute ACS is low.
--- NOTE | 2024-05-08 11:37 | PC.NURSE ---
Repeat EKG completed and given to Dr. Fajardo
--- NOTE | 2024-05-08 11:42 | PC.NURSE ---
CALLED CARDIOLOGY OFFICE PERCY MARK IS ON FLOOR WILL LET HER KNOW OF CONSULT IN ED
--- NOTE | 2024-05-08 11:45 | PC.NURSE ---
PERCY MARK FROM CARDIOLOGY CALLED AND STATES SHE WILL BE OVER IN A FEW MINUTES FOR CONSULT ON PT
[2024-05-08 11:46] LABS: Basophils % 0.5 % (0.1-2.0); Eosinophils # 0.1 K/mm3 (0.0-0.4); Eosinophils % 0.9 % (0.1-12.0); Hematocrit 39.6 % (37.0-47.0); Hemoglobin 12.3 g/dL (12.2-16.2); Lymphocytes # 1.2 K/mm3 (0.7-4.5); Lymphocytes % 20.1 % (10-50); Mean Corpuscular HGB Conc 30.9 g/dL (31.8-35.4); Mean Corpuscular Hemoglobin 27.8 pg (27.0-31.2); Mean Platelet Volume 8.9 fl (7.4-10.4); Monocytes # 0.3 K/mm3 (0.1-1.0); Monocytes % 5.5 % (1.7-9.3); Neutrophils # 4.3 K/mm3 (1.8-7.8); Platelet Count 194 K/mm3 (142-424); Red Cell Distribution Width 17.1 % (11.5-17.5); White Blood Count 5.9 K/mm3 (4.8-10.8)
--- NOTE | 2024-05-08 11:48 | PC.NURSE ---
portable xray at bedside
--- NOTE | 2024-05-08 12:11 | PC.NURSE ---
yanni from cardiology at bedside
--- NOTE | 2024-05-08 12:12 | PC.NURSE ---
cardiology at bedside
[2024-05-08 12:17] LABS: Free T4 (Free Thyroxine) 1.08 ng/dl (0.78-2.19)
--- NOTE | 2024-05-08 12:20 | CA_ITS ---
APPROVED REPORT EXAM: Comprehensive 2D, Doppler, and color-flow Echocardiogram Tube And Manifold Builder: Ariane Key, RCS, RVS Ht: 5 ft 3 in Wt: 140lbs BSA: 1.66 BP: 85/63 mmHg Indications: Hypotension, post cardiac cath 05/04/24, Pre-sycope, Aflutter-cariable rate, , CAD, COPD 2D Dimensions IVSd 1.05 cm F: 0.6-1.0 LVEF (Visual) 70.20 % PWd 0.88 cm F: 0.6 - 1.0 LA Volume 73.70 mL LVDd 4.29 cm F: 3.9 - 5.3 LA Volume Index 44.40 mL/m2 (M/F) 16-34 LVDs 2.60 cm F: 2.2 - 3.5 EF AP4 53.20 % Aortic Root 2.63 cm F: 2.7 - 3.3 GL Strain -8.0 % Left Atrium 3.48 cm F: 2.7 - 3.8 LVOT 2.11 cm (M/F) 1.5-2.5 M-Mode Dimensions LVDd 4.29 cm (3.5-5.7) LVDs 2.60 cm (3.5-5.7) IVSd 1.05 cm (0.6-1.1) PWd 0.88 cm (0.6-1.1) EPSs 0.72 cm FS 39.40% Aortic Valve LVOT Max 83.0 (70-110 cm/s) FLEX Index 0.83 cm2/m2 LVOT VTI 13.57 cm AoV Peak Ron. 199.0 (50-130 cm/s) AO Mean GR. 7.80 (<5 mmHg) AO VTI 34.6 (18-25 cm) FLEX (VTI) 1.37 (2.5-4.5 cm2) Tricuspid Valve TR P. Velocity 243.00 cm/s RAP Estimate 10.00 mmHg RVSP 33.60 mmHg Left Ventricle The left ventricle is normal size. The left ventricular systolic function is normal. The left ventricular ejection fraction is within the normal range. There is increased LV wall thickness. There is normal LV segmental wall motion. Diastolic function is indeterminate. LVEF is 55%. Right Ventricle The right ventricle is mildly dilated. The right ventricular systolic function is normal. Atria The left atrium is severely dilated. The right atrium size is normal. There is no Doppler evidence of interatrial shunt. Aortic Valve The aortic valve is mildly thickened. Mild aortic stenosis. Peak velocity 2.0 m/s. Mean AV gradient 8 mmHg. Max AV gradient 16 mmHg. FLEX by continuity equation is 1.6 cm2. Trace aortic regurgitation. Mitral Valve The mitral valve leaflets are mildly thickened. No evidence of mitral valve stenosis. Mild mitral regurgitation. Tricuspid Valve The tricuspid valve leaflets are mildly thickened. Mild tricuspid regurgitation. RVSP is 25-30 mmHg. Pulmonic Valve The pulmonary valve is normal in structure. Trace pulmonic regurgitation. Great Vessels The aortic root is normal in size. The ascending aorta is normal in size. IVC is normal in size and collapses >50% with inspiration. Pericardium Trivial, anterior pericardial effusion is present. No echo indications of tamponade. Other Information Study Quality: Technically Difficult Conclusion Technically difficult study due to poor acoustic windows. Normal biventricular systolic function. Mild RV dilation. Mild (Peak velocity 2.0 m/s. Mean AV gradient 8 mmHg. Max AV gradient 16 mmHg. FLEX by continuity equation is 1.6 cm2). Mild MR, mild TR. RVSP 25 to 30 mmHg. Trivial, anterior pericardial effusion is present. No echo indications of tamponade. Electronically signed by : Triny Mao MD 05/09/2024 00:29:49
[2024-05-08 12:21] LABS: HIV (1&2) Antibody Rapid NONREACTIVE (NONREACTIVE)
--- NOTE | 2024-05-08 12:22 | PC.NURSE ---
spoke with rodolfo from [facility] no one in echo answered phone and she states they are at lunch and would leave a note for them to call er
--- NOTE | 2024-05-08 12:41 | PC.NURSE ---
Family at BS, no needs at this time. Call benson within reach
--- NOTE | 2024-05-08 12:46 | PC.NURSE ---
er aware of bp
--- NOTE | 2024-05-08 12:54 | EXP.CARD.CON ---
History of Present Illness History of Present Illness Consult date: 05/08/24 Requesting physician: Saul Fajardo Chief complaint: dizziness History of present illness: This is an 84-year-old female who presented to the emergency department with dizziness. The patient was recently admitted to the hospital for symptomatic bradycardia and underwent left cardiac catheterization. She had stenting to her LAD and right coronary artery and has remained on dual antiplatelet therapy since that time. Her heart rate improved after coronary stenting. Event monitor was in place at the time of discharge and no bradycardia has been noted on her event monitor. The patient states that she has been dizzy since her discharge from the hospital so she was coming to cardiology clinic today to report that she was not feeling well with the dizziness but when she got out of the car she felt as if she were going to pass out in the parking lot. The patient states that she did not lose consciousness but was very dizzy and felt as if someone had pushed her down. She denied any chest pain or pressure she denied any shortness of breath or edema. She denied any fever, chills, nausea, vomiting, diarrhea, PND or orthopnea. Once in the emergency department the patient was found to be hypotensive and in atrial flutter with a heart rate around 110 to 120 bpm. [facility] Disclaimer: The information contained in this section may have been updated after the patient was seen, as this information can be updated by other users. Medical History (Updated 05/08/24 @ 12:58 by Bonnie Roldan APRN) Hypotension Atrial flutter Pre-syncope Descending thoracic aortic aneurysm Abnormal echocardiogram Diabetes mellitus Symptomatic bradycardia Dizziness Shortness of Breath Atypical angina COPD (chronic obstructive pulmonary disease) Hyperlipidemia Hypertension Aortic heart murmur Coronary artery disease Abnormal electrocardiogram [ECG] [EKG] Encounter for pre-operative cardiovascular clearance Surgical History History of coronary artery stent placement Family History Father Family history of myocardial infarction Social History Smoking Status: Never smoker second hand exposure: Yes alcohol intake: never substance use type: denies use current occupational status: other Travel in the last 8 weeks: None household members: spouse housing: house 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 current occupational exposures/hazards: No caffeine: Yes Review of Systems Review of Systems Review of systems:: pertinent systems reviewed and negative unless documented below Constitutional Constitutional: Reports system reviewed and no additional complaints, except as documented, Reports fatigue and Reports lethargy Eyes Eyes: Reports system reviewed and no additional complaints, except as documented ENT Ears, Nose, Mouth, and Throat: Reports system reviewed and no additional complaints, except as documented, Reports disequilibrium and Reports dizziness *Cardiovascular Cardiovascular: Reports system reviewed and no additional complaints, except as documented and Reports lightheadedness *Respiratory Respiratory: Reports system reviewed and no additional complaints, except as documented *Gastrointestinal Gastrointestinal: Reports system reviewed and no additional complaints, except as documented *Genitourinary Genitourinary: Reports system reviewed and no additional complaints, except as documented *Musculoskeletal Musculoskeletal: Reports system reviewed and no additional complaints, except as documented Integumentary/Breasts Skin/Breast: Reports system reviewed and no additional complaints, except as documented *Neurologic Neurologic: Reports system reviewed and no additional complaints, except as documented, Reports disequilibrium and Reports dizziness Psychiatric Psychiatric: Reports system reviewed and no additional complaints, except as documented Endocrine Endocrine: Reports system reviewed and no additional complaints, except as documented and Reports fatigue Hematologic/Lymphatic Hematologic/Lymphatic: Reports system reviewed and no additional complaints, except as documented Allergic/Immunologic Allergic/Immunologic: Reports system reviewed and no additional complaints, except as documented Exam Data for Last 24 hours Vital signs and Labs for Last 24 Hours: Temp Pulse Resp BP Pulse Ox O2 Del Method 97.6 F 100 H 16 85/63 L 98 Room Air 05/08/24 11:18 05/08/24 12:43 05/08/24 12:43 05/08/24 12:43 05/08/24 12:43 05/08/24 11:33 Laboratory Results - last 24 hr 05/08/24 11:30: WBC 5.9, RBC 4.40, Hgb 12.3, Hct 39.6, MCV 90.0, MCH 27.8, MCHC 30.9 L, RDW 17.1, Plt Count 194 D, MPV 8.9, Neut % (Auto) 73.0, Lymph % (Auto) 20.1, [place] % (Auto) 5.5, Eos % (Auto) 0.9, Baso % (Auto) 0.5, Neut # (Auto) 4.3, Lymph # (Auto) 1.2, [place] # (Auto) 0.3, Eos # (Auto) 0.1, Baso # (Auto) 0.0, Free T4 1.08, HIV 1&2 Antibody Rapid Nonreactive I & O for Last 24 hours: Intake & Output 05/05/24 05/06/24 05/07/24 05/08/24 23:59 23:59 23:59 23:59 Weight 140 lb Constitutional Constitutional: no acute distress and average body habitus *Routine HEENT Exam Head: Present normocephalic and atraumatic ENT: Present mucous membranes moist *Routine Neck Exam Neck: Present supple, full ROM and normal carotid upstroke; Absent JVD, carotid bruit or lymphadenopathy *Routine Respiratory Exam Respiratory: Present CTA bilaterally, normal respiratory effort, able to speak in complete sentences and symmetric chest movement *Routine Cardiovascular Exam Cardiovascular: Present RRR, Normal S1 and Normal S2; Absent murmur or gallop *Routine Abdominal Exam Abdominal: Present soft and normoactive bowel sounds; Absent tenderness, distended or organomegaly *Routine Extremities Exam Extremities: Present full ROM, pulses intact and normal capillary refill; Absent cyanosis, clubbing or edema *Routine Skin Exam Skin: Present intact and warm; Absent erythema *Routine Neurological Exam Neurological: Present alert, oriented X3 and CN II-XII intact; Absent sensory deficit or motor deficit Routine Psychiatric Exam Psychiatric: Present normal affect Meds Home Medications and Allergies Home Medications ?Medication ?Instructions ?Recorded ?Confirmed ?Type clopidogrel 75 mg tablet 75 mg PO DAILY 04/21/21 05/08/24 History linagliptin 5 mg tablet (Tradjenta) 5 mg PO DAILY 08/15/22 05/08/24 History amitriptyline 50 mg tablet 50 mg PO HS 05/03/24 05/08/24 History atorvastatin 10 mg tablet 10 mg PO HS 05/03/24 05/08/24 History donepezil 5 mg tablet 5 mg PO HS 05/03/24 05/08/24 History furosemide 20 mg tablet 20 mg PO DAILY 05/03/24 05/08/24 History rivastigmine 4.6 mg/24 hour 4.6 mg transdermal DAILY 05/03/24 05/08/24 History transdermal patch (Exelon Patch) hydrocortisone 2.5 % topical cream 1 applic topical BID 05/04/24 05/08/24 History with perineal applicator latanoprost 0.005 % eye drops 1 drp Eye-Both HS 05/04/24 05/08/24 History aspirin 81 mg tablet,delayed 81 mg PO DAILY 30 days #30 tabs 05/05/24 05/08/24 Rx release cefdinir 300 mg capsule 300 mg PO BID 5 days #10 caps 05/05/24 05/08/24 Rx irbesartan 150 mg tablet 150 mg PO DAILY 30 days #30 tabs 05/05/24 05/08/24 Rx New Prescriptions to Start Prescriptions: Allergies Allergy/AdvReac Type Severity Reaction Status Date / Time Sulfa (Sulfonamide Allergy Unknown Unknown Verified 05/08/24 11:37 Antibiotics) allergy reaction Penicillins Allergy Other Verified 05/08/24 11:37 Assessment and Plan *Assessment and plan (1) Pre-syncope: Status: Acute Category: Medical Code(s): R55 - Syncope and collapse (2) Dizziness: Status: Acute Category: Medical Code(s): R42 - Dizziness and giddiness (3) Atrial flutter: Status: Acute Qualifiers: Atrial flutter type: unspecified Qualified Code(s): I48.92 - Unspecified atrial flutter Category: Medical Code(s): I48.92 - Unspecified atrial flutter (4) Hypotension: Status: Acute Qualifiers: Hypotension type: hypotension due to drug Qualified Code(s): I95.2 - Hypotension due to drugs Category: Medical Code(s): I95.9 - Hypotension, unspecified (5) Coronary artery disease: Status: Acute Qualifiers: Coronary Disease-Associated Artery/Lesion type: [place] artery [place] vs. transplanted heart: [place] heart Associated angina: with other forms of angina Qualified Code(s): I25.118 - Atherosclerotic heart disease of [place] coronary artery with other forms of angina pectoris Category: Medical Code(s): I25.10 - Atherosclerotic heart disease of [place] coronary artery without angina pectoris (6) Descending thoracic aortic aneurysm: Status: Acute Qualifiers: Presence of rupture: without rupture Qualified Code(s): I71.23 - Aneurysm of the descending thoracic aorta, without rupture Category: Medical Code(s): I71.23 - Aneurysm of the descending thoracic aorta, without rupture (7) Diabetes mellitus: Status: Acute Qualifiers: Diabetes mellitus type: type 2 Diabetes mellitus customer care consultant insulin use: without longterm use Diabetes mellitus complication status: without complication Qualified Code(s): E11.9 - Type 2 diabetes mellitus without complications Category: Medical Code(s): E11.9 - Type 2 diabetes mellitus without complications (8) Hyperlipidemia: Status: Acute Qualifiers: Hyperlipidemia type: mixed hyperlipidemia Qualified Code(s): E78.2 - Mixed hyperlipidemia Category: Medical Code(s): E78.5 - Hyperlipidemia, unspecified (9) History of coronary artery stent placement: Status: Acute Category: Surgical Code(s): Z95.5 - Presence of coronary angioplasty implant and graft Plan Plan: 1. The patient presented to the emergency department after presyncopal episode in the parking lot here at the hospital. The patient was found to be hypotensive and tachycardic in atrial flutter. The patient remains in atrial flutter at this time with a heart rate in the 110-120s. Will start the patient on Lopressor 25 mg p.o. 3 times daily for suppression of the atrial fibrillation. 2. The patient was previously admitted for bradycardia and a junctional rhythm. This did improve following left cardiac catheterization with stenting this week. She was sent home with an event monitor in place. No bradycardia has been noted since being discharged from the hospital. We will start her on Lopressor as mentioned above for suppression of her atrial fibrillation. 3. The patient reports that she has been dizzy since being home from the hospital. She states that the dizziness was worse now than before her stenting and prior hospital admission. Upon further investigation, the patient was taking both losartan and irbesartan. Her blood pressure was low upon arrival to the emergency department. The hypotension was most likely the cause of her dizziness and may have been from the atrial flutter and tachycardia as well. Will hold her irbesartan and Lasix at this time due to hypotension. No losartan at this time. 4. [id number] echocardiogram was done in the emergency department and there appears to be a small pericardial effusion which is new onset. In the setting of having recent cardiac catheterization with stenting will repeat echocardiogram at this time to reevaluate her LV function and make sure no significant effusion is noted. 5. Coronary artery disease is present. She denies any chest pain or pressure. No plans for invasive left cardiac catheterization at this time. 6. Continue Plavix. 7. Stop aspirin as she is almost a week out from stenting per Dr. Agosto. 8. Start Xarelto 15 mg p.o. daily for long-term anticoagulation secondary to being in atrial flutter. The patient will remain on Plavix and Xarelto at this time. 9. Her LDL goal is less than 55. Her LDL is 30. She is on a statin. 10. The patient does have a descending thoracic aortic aneurysm measuring 4.2 cm. This will need to be reevaluated in 6 months. 11. 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 There is a filling defect/thrombus that extends from the left subclavian vein into the left internal jugular vein, age-indeterminate. 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 She is now being started on anticoagulation. 12. If the patient remains in atrial flutter on Saturday, then the patient will be set up for EDENILSON and cardioversion. 13. If the patient tolerates initiation of Lopressor without significant bradycardia and her dizziness improves, then she can be discharged from the hospital over the weekend on Lopressor and Xarelto for the atrial flutter and keep the event monitor in place. Thank you for the opportunity to have participate in the care of this patient. All recommendations and orders are per Dr. Mao.
[2024-05-08] MEDS: METOPROLOL TARTRATE 25MG TABLET 25 MG PO ×2 (13:10→20:03)
--- NOTE | 2024-05-08 13:19 | HMH.PHAINT1 ---
Pharmacy Intervention Comments: MEDICATION RECONCILIATION COMPLETED ON PATIENT USING EXTERNAL FILL HISTORY FROM PHARMACY AND DISCHARGE SUMMARY FROM PREVIOUS ADMISSION. -FAZAL MURO, DEEPAD
[2024-05-08 13:49] LABS: Albumin Level 4.2 g/dl (3.5-5.0); Chloride 103 mmol/L (98-107); Potassium 4.4 mmoL/L (3.5-5.1); Sodium 137 mmol/L (136-145)
[2024-05-08] MEDS: CLOPIDOGREL 75MG TAB 75 MG PO (13:49)
[2024-05-08 13:51] LABS: Blood Urea Nitrogen 18 mg/dl (7-17); Creatinine Clearance Estimated 30 mL/min (50-200); Estimated Glomerular Filt Rate 36 ml/min (>60); GFR (African American) 43 ML/MIN (>60)
[2024-05-08 13:52] LABS: Alanine Aminotransferase 25 U/L (12-78); Albumin/Globulin Ratio 1.3 (1.1-1.8); Alkaline Phosphatase 102 U/L (38-126); Anion Gap 15.4 mEq/L (5-15); Aspartate Amino Transferase 32 U/L (14-36); Bilirubin,Total 0.7 mg/dl (0.2-1.3); Calcium 8.9 mg/dl (8.4-10.2); Carbon Dioxide 23 mmol/L (22.0-30.0); Globulin 3.3 g/dL (1.3-3.2); Glucose 181 mg/dl (74-100); Total Protein,Serum 7.5 g/dl (6.3-8.2)
[2024-05-08 13:53] LABS: Magnesium 2.1 mg/dl (1.6-2.3)
[2024-05-08 14:05] LABS: Troponin I 0.04 ng/ml (0.00-0.034)
--- NOTE | 2024-05-08 14:05 | PC.NURSE ---
house aware of admission
--- NOTE | 2024-05-08 14:18 | PC.NURSE ---
called report to devika kohler
[2024-05-08 14:23] LABS: Thyroid Stimulating Hormone 4.13 uIU/mL (0.465-4.68)
[2024-05-08 15:31] LABS: Troponin I 0.04 ng/ml (0.00-0.034)
[2024-05-08] MEDS: RIVAROXABAN 10MG TABLET 15 MG PO (16:52)
--- NOTE | 2024-05-08 18:05 | P.HP_ITS ---
History of Present Illness *Admission Date: 05/08/24 *Reason for visit:: Dizziness, presyncope, A-flutter *History of present illness: Patient is a 84-year-old female with a history significant for LAD s/p stent, HFpEF, symptomatic bradycardia (resolved after cardiac stent), CVA with no re sidual weakness, hypertension, [id number] diabetes who presented with dizziness, presyncope today. Patient was recently admitted for symptomatic bradycardia which improved after C revealed significant stenosis of the LAD s/p stent. Patient was sent home on a event monitor which did not show further episodes of bradycardia. However, patient notes over the past few days she has been feeling more dizzy especially upon standing. Upon medication review, patient has been taking both losartan and irbesartan and had blood pressure in the systolic of 80s. Patient denies chest pain, shortness of breath, abdominal pain during this course. Workup in the ED included EKG revealing a flutter, hypotension with systolics in the 80s, troponin 0.04 plateaued. Cardiology was consulted in the ED who recommended beta-karin for A-flutter, and discontinuing losartan, and monitor overnight with telemetry. Case was discussed with the ED attending and decision was made to admit patient for A-flutter, hypotension. [facility] Disclaimer: The information contained in this section may have been updated after the patient was seen, as this information can be updated by other users. Medical History Hypotension Atrial flutter Pre-syncope Descending thoracic aortic aneurysm Abnormal echocardiogram Diabetes mellitus Symptomatic bradycardia Dizziness Shortness of Breath Atypical angina COPD (chronic obstructive pulmonary disease) Hyperlipidemia Hypertension Aortic heart murmur Coronary artery disease Abnormal electrocardiogram [ECG] [EKG] Encounter for pre-operative cardiovascular clearance Surgical History History of coronary artery stent placement Family History Father Family history of myocardial infarction Social History (Updated 05/08/24 @ 15:32 by Liliana Peters RN) Smoking Status: Current every day smoker tobacco type: cigarettes packs per day: 1 second hand exposure: Yes alcohol intake: never substance use type: denies use current occupational status: other Travel in the last 8 weeks: None household members: spouse housing: house 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[employer] current occupational exposures/hazards: No caffeine: Yes Review of Systems ENT Ears, Nose, Mouth, and Throat: Reports disequilibrium and Reports dizziness *Neurologic Neurologic: Reports system reviewed and no additional complaints, except as documented, Reports disequilibrium and Reports dizziness Meds Home Medications and Allergies Home Medications ?Medication ?Instructions ?Recorded ?Confirmed ?Type clopidogrel 75 mg tablet 75 mg PO DAILY 04/21/21 05/08/24 History linagliptin 5 mg tablet (Tradjenta) 5 mg PO DAILY 08/15/22 05/08/24 History amitriptyline 50 mg tablet 50 mg PO HS 05/03/24 05/08/24 History atorvastatin 10 mg tablet 10 mg PO HS 05/03/24 05/08/24 History donepezil 5 mg tablet 5 mg PO HS 05/03/24 05/08/24 History furosemide 20 mg tablet 20 mg PO DAILY 05/03/24 05/08/24 History rivastigmine 4.6 mg/24 hour 4.6 mg transdermal DAILY 05/03/24 05/08/24 History transdermal patch (Exelon Patch) hydrocortisone 2.5 % topical cream 1 applic topical BID 05/04/24 05/08/24 History with perineal applicator latanoprost 0.005 % eye drops 1 drp Eye-Both HS 05/04/24 05/08/24 History aspirin 81 mg tablet,delayed 81 mg PO DAILY 30 days #30 tabs 05/05/24 05/08/24 Rx release cefdinir 300 mg capsule 300 mg PO BID 5 days #10 caps 05/05/24 05/08/24 Rx irbesartan 150 mg tablet 150 mg PO DAILY 30 days #30 tabs 05/05/24 05/08/24 Rx New Prescriptions to Start Prescriptions: Allergies Allergy/AdvReac Type Severity Reaction Status Date / Time Sulfa (Sulfonamide Allergy Unknown Unknown Verified 05/08/24 15:10 Antibiotics) allergy reaction Penicillins Allergy Other Verified 05/08/24 15:10 Exam Data for Last 24 hours Vital signs and Labs for Last 24 Hours: Temp Pulse Resp BP Pulse Ox O2 Del Method 98.2 F 104 H 18 143/81 H 100 Room Air 05/08/24 16:00 05/08/24 16:00 05/08/24 16:00 05/08/24 16:00 05/08/24 16:00 05/08/24 17:55 Laboratory Results - last 24 hr 05/08/24 11:30: WBC 5.9, RBC 4.40, Hgb 12.3, Hct 39.6, MCV 90.0, MCH 27.8, MCHC 30.9 L, RDW 17.1, Plt Count 194 D, MPV 8.9, Neut % (Auto) 73.0, Lymph % (Auto) 20.1, [place] % (Auto) 5.5, Eos % (Auto) 0.9, Baso % (Auto) 0.5, Neut # (Auto) 4.3, Lymph # (Auto) 1.2, [place] # (Auto) 0.3, Eos # (Auto) 0.1, Baso # (Auto) 0.0, Sodium 137, Potassium 4.4, Chloride 103, Carbon Dioxide 23, Anion Gap 15.4 H, BUN 18 H, Creatinine 1.40 H, Estimated Creat Clear 30, Estimated GFR 36 L, Est GFR ( Amer) 43 L, Glucose 181 H, Calcium 8.9, Magnesium 2.1, Total Bilirubin 0.7, AST 32, ALT 25, Alkaline Phosphatase 102, Troponin I 0.04 H, Total Protein 7.5, Albumin 4.2, Globulin 3.3 H, Albumin/Globulin Ratio 1.3, TSH 4.13, Free T4 1.08, HIV 1&2 Antibody Rapid Nonreactive 05/08/24 15:02: Troponin I 0.04 H I & O for Last 24 hours: Intake & Output 05/05/24 05/06/24 05/07/24 05/08/24 23:59 23:59 23:59 23:59 Weight 59.511 kg Constitutional Constitutional: no acute distress *Routine HEENT Exam Head: Present normocephalic Eye: Present EOMI and PERRL ENT: Present mucous membranes moist *Routine Neck Exam Neck: Present supple; Absent lymphadenopathy *Routine Respiratory Exam Respiratory: Present CTA bilaterally; Absent wheezes or crackles *Routine Cardiovascular Exam Cardiovascular: Present tachycardia and irregular rhythm *Routine Abdominal Exam Abdominal: Present soft and normoactive bowel sounds; Absent tenderness *Routine Rectal Exam Rectal:: deferred *Routine Genitalia Exam Genitalia:: deferred *Routine Extremities Exam Extremities: Absent cyanosis, clubbing or edema Comments: Chronic venous stasis skin changes. *Routine Skin Exam Skin: Present warm; Absent rash *Routine Neurological Exam Neurological: Present alert and oriented X3 Assessment and Plan *Assessment and plan (1) Adverse effects of medication: Status: Acute Category: Medical Code(s): T50.905A - Adverse effect of unspecified drugs, medicaments and biological substances, initial encounter (2) Atrial flutter: Status: Acute Category: Medical Code(s): I48.92 - Unspecified atrial flutter (3) Hypotension: Status: Acute Qualifiers: Hypotension type: hypotension due to drug Qualified Code(s): I95.2 - Hypotension due to drugs Category: Medical Code(s): I95.9 - Hypotension, unspecified (4) Atrial flutter: Status: Acute Qualifiers: Atrial flutter type: unspecified Qualified Code(s): I48.92 - Unspecified atrial flutter Category: Medical Code(s): I48.92 - Unspecified atrial flutter (5) Pre-syncope: Status: Acute Category: Medical Code(s): R55 - Syncope and collapse (6) Hypertension: Status: Acute Qualifiers: Hypertension type: primary hypertension Qualified Code(s): I10 - Essential (primary) hypertension Category: Medical Code(s): I10 - Essential (primary) hypertension (7) Dizziness: Status: Acute Category: Medical Code(s): R42 - Dizziness and giddiness Plan Patient is a 84-year-old female with a history significant for LAD s/p stent, HFpEF, symptomatic bradycardia (resolved after cardiac stent), TIA with no residual weakness, hypertension, [id number]-dodmzrzjg diabetes who presented with dizziness, presyncope today. Patient was recently admitted for symptomatic bradycardia which improved after C revealed significant stenosis of the LAD s/p stent. Patient was sent home on a event monitor which did not show further episodes of bradycardia. However, patient notes over the past few days she has been feeling more dizzy especially upon standing. In fact, she states she was on her way to follow-up with her reagent tender today but became dizzy and fell in the parking lot. She then proceeded to come to the ED upon medication review, patient has been taking both losartan and irbesartan and had blood pressure in the systolic of 80s. Patient denies chest pain, shortness of breath, abdominal pain during this course. Workup in the ED included EKG revealing a flutter, hypotension with systolics in the 80s, troponin 0.04 plateaued. Cardiology was consulted in the ED who recommended beta-karin for A-flutter, and discontinuing losartan, and monitor overnight with telemetry. Case was discussed with the ED attending and decision was made to admit patient for new onset A-flutter, presyncope, dizziness, hypotension. #Pre-syncope, dizziness #Hypotension, resolved #A-flutter ? Presyncope, dizziness likely secondary to a flutter with hypotension in the setting of taking losartan, irbesartan concurrently. ? Plan to hold and washout losartan and irbesartan for the next 24 hours. Discontinue losartan. ? Initially a flutter with RVR likely tachycardia reflect secondary to hypotension. ? Cardiology consulted, recommended starting beta-karin and monitor overnight with telemetry. ? Continuous telemetry. ? Metoprolol tartrate 25 mg 3 times daily. ? Xarelto 50 mg nightly. ? Plan to discharge with event monitor. #Hypertension ? Washout irbesartan, losartan for the next 24 hours. Discontinue losartan. See above. #CAD s/p LAD stent #History of TIA ? Aspirin, Plavix, atorvastatin. #Type 2 diabetes ? LDSSI, ACHS glucose check. CODE STATUS: Full code DVT prophylaxis: Xarelto Diet: Cardiac
[2024-05-08 19:01] LABS: Troponin I 0.03 ng/ml (0.00-0.034)
[2024-05-08] MEDS: ATORVASTATIN 10MG TABLET 10 MG PO (20:03)
[2024-05-08] MEDS: humaLOG 100 UNITS/ML 10ML VIAL (SSI) SQ (20:03)
[2024-05-08] MEDS: DONEPEZIL 5MG TAB 5 MG PO (20:03)
[2024-05-08 21:21] LABS: POC Glucose,Bedside 231 (70-110)
[2024-05-09] VITALS (16 sets, daily range): BP systolic 92–147; BP diastolic 44–106; PULSE 70–130; RESP 16–24; TEMP 36.4–36.9; O2SAT 93–100; BMI 23.6
--- NOTE | 2024-05-09 03:49 | PC.NURSE ---
Pt is alert and oriented x4 and currently tolerating RA well. Pt has had no acute changes to note thus far. Pt denies pain and needs at this time
[2024-05-09] MEDS: humaLOG 100 UNITS/ML 10ML VIAL (SSI) SQ ×3 (05:38→16:41)
[2024-05-09 05:41] LABS: POC Glucose,Bedside 168 (70-110)
--- NOTE | 2024-05-09 05:47 | ECG_ITS ---
APPROVED REPORT Exam: Resting ECG HR:92 bpm ECG Measurements Heart Rate 92 AXES QRSd 100 QRS -30 QT 340 T 197 QTc 390 Conclusion ATRIAL FLUTTER/TACHYCARDIA LEFT VENTRICULAR HYPERTROPHY AND ST-T CHANGE [VOLTAGE CRITERIA PLUS ST/T ABNORMALITY] POSSIBLE SEPTAL MYOCARDIAL INFARCTION , PROBABLY OLD [30 ms Q WAVE IN V1/V2] ABNORMAL ECG UNCONFIRMED REPORT Electronically signed by : Rick West MD 05/10/2024 16:02:57
--- NOTE | 2024-05-09 05:56 | EXP.EVENT.NO ---
I was called for the patient having symptoms of dizziness and about to passed out. Patient was sitting on the toilet for urination. Patient started feeling dizzy and was about to pass out. Patient otherwise denied chest pain shortness of breath. Patient is admitted for presyncope. EKG was performed which did show atrial flutter, blood pressure 167/107, other vital signs within normal limits. Patient is alert oriented x 3, no focal neurologic deficit was noted. Check CBC BMP, cardiology is following, telemetry monitoring reviewed. Continue to monitor and follow-up with cardiology
[2024-05-09 06:10] LABS: Basophils % 0.4 % (0.1-2.0); Eosinophils # 0.1 K/mm3 (0.0-0.4); Eosinophils % 1.3 % (0.1-12.0); Hematocrit 37.2 % (37.0-47.0); Hemoglobin 11.4 g/dL (12.2-16.2); Lymphocytes # 1.8 K/mm3 (0.7-4.5); Lymphocytes % 34.1 % (10-50); Mean Corpuscular HGB Conc 30.8 g/dL (31.8-35.4); Mean Corpuscular Hemoglobin 27.7 pg (27.0-31.2); Mean Corpuscular Volume 90.1 fl (81-99); Mean Platelet Volume 9.2 fl (7.4-10.4); Monocytes # 0.3 K/mm3 (0.1-1.0); Monocytes % 6.1 % (1.7-9.3); Neutrophils # 3.1 K/mm3 (1.8-7.8); Neutrophils % 58.2 % (37.0-80.0); Platelet Count 164 K/mm3 (142-424); Red Blood Count 4.13 M/mm3 (4.20-5.40); Red Cell Distribution Width 17.1 % (11.5-17.5); White Blood Count 5.3 K/mm3 (4.8-10.8)
[2024-05-09 06:10] LABS: POC Glucose,Bedside 144 (70-110)
[2024-05-09 06:16] LABS: Alanine Aminotransferase 24 U/L (12-78); Albumin Level 3.5 g/dl (3.5-5.0); Albumin/Globulin Ratio 1.2 (1.1-1.8); Alkaline Phosphatase 79 U/L (38-126); Anion Gap 11.4 mEq/L (5-15); Aspartate Amino Transferase 37 U/L (14-36); Bilirubin,Total 0.4 mg/dl (0.2-1.3); Blood Urea Nitrogen 17 mg/dl (7-17); Calcium 8.5 mg/dl (8.4-10.2); Carbon Dioxide 20 mmol/L (22.0-30.0); Chloride 109 mmol/L (98-107); Creatinine Clearance Estimated 31 mL/min (50-200); Estimated Glomerular Filt Rate 39 ml/min (>60); GFR (African American) 47 ML/MIN (>60); Globulin 2.9 g/dL (1.3-3.2); Glucose 165 mg/dl (74-100); Magnesium 2.3 mg/dl (1.6-2.3); Potassium 4.4 mmoL/L (3.5-5.1); Sodium 136 mmol/L (136-145); Total Protein,Serum 6.4 g/dl (6.3-8.2)
--- NOTE | 2024-05-09 06:30 | PC.NURSE ---
0600: While in room to give pt insulin pt asked for help going to the bathroom, as pt set down to urinate she became short of breath and fell forward with a syncopal episode, this nurse caught her and held her up while daughter called for help. Pt was unconscious and unable to respond to staff, pt was moved to bed, pulse present ABD pads applied. After sternal rub pt did open eyes and regain consciousness. Pt was able to tell staff her name and that she was at the hospital. Pt BP 134/106, P-119 initially and later stabilized. Pt glucose level 144. Dr. Lamar was contacted and present following episode MD ordered labs and EKG. manager call MD for cardiology was also notified with orders to monitor telemetry and consulting later today. 0630: pt insisted on getting up to the bedside commode as multiple attempts to advise pt not to get up and use bedpan were unsuccessful pt insisted and tried to get up on her own. while transferring pt to bedside commode pt began to have a 2nd syncopal episode lasting 1 minute. Pt had slight jerking and pt did urinate during this episode. Dr. Lamar was contacted and notified. New order for CT. seizure pads added to bed rails at this time.
--- NOTE | 2024-05-09 06:52 | CT_ITS ---
PROCEDURE INFORMATION: Exam: CT Head Without Contrast Exam date and time: 05/09/2024 7:18 AM Age: 84 years old Clinical indication: Syncope and collapse; Additional info: Seizure like activity TECHNIQUE: Imaging protocol: Computed tomography of the head without contrast. Radiation optimization: All CT scans at this facility use at least one of these dose optimization techniques: automated exposure control; mA and/or kV adjustment per patient size (includes targeted exams where dose is matched to clinical indication); or iterative reconstruction. COMPARISON: MR HEAD/BRAIN WO CON 11/20/2021 10:00 AM FINDINGS: Brain: No acute intracranial hemorrhage.. There is mild diffuse heterogeneity of the white matter attenuation, consistent with chronic white matter ischemic changes. Mild cerebral atrophy Cerebral ventricles: No ventriculomegaly. Paranasal sinuses: Visualized sinuses are unremarkable. No fluid levels. Mastoid air cells: Visualized mastoid air cells are well aerated. Bones: Unremarkable. No acute fracture. Soft tissues: Unremarkable. IMPRESSION: No acute intracranial hemorrhage..
[2024-05-09 07:20] LABS: Troponin I 0.03 ng/ml (0.00-0.034)
[2024-05-09] MEDS: METOPROLOL TARTRATE 25MG TABLET 25 MG PO (09:20)
[2024-05-09] MEDS: RIVASTIGMINE 4.6MG/24HR PATCH 1 EACH TD (09:20)
[2024-05-09] MEDS: CLOPIDOGREL 75MG TAB 75 MG PO (09:21)
[2024-05-09 09:32] LABS: HCV Ab Non Reactive (Non Reactive)
[2024-05-09 11:25] LABS: POC Glucose,Bedside 193 (70-110)
[2024-05-09] MEDS: AMIODARONE HCL 150 MG in DEXTROSE 5 % IN WATER 100 ML 618 MG IV (13:29)
[2024-05-09] MEDS: ASPIRIN EC 81MG TABLET 81 MG PO (13:40)
[2024-05-09] MEDS: AMIODARONE HCL 900 MG in DEXTROSE 5 % IN WATER 500 ML 34.53 MG IV (13:44)
--- NOTE | 2024-05-09 14:00 | P.PN_ITS ---
Subjective *Date: 05/09/24 *Time: 14:00 Interval history: Early this morning between 5 and 6 AM, patient had 2 episodes of seizure-like activity. No postictal state. During this time telemetry revealed asystole with heart rate in 30s. Patient does not remember the event. Currently denies chest pain, shortness of breath. Alert and oriented x 3. Exam Data for Last 24 hours Vital signs and Labs for Last 24 Hours: Temp Pulse Resp BP Pulse Ox O2 Del Method O2 Flow Rate 98.1 F 82 16 103/61 L 96 Nasal Cannula 2 05/09/24 12:00 05/09/24 12:00 05/09/24 12:00 05/09/24 12:00 05/09/24 12:00 05/09/24 11:00 05/09/24 11:00 Laboratory Results - last 24 hr 05/08/24 11:30: Troponin I 0.04 H, TSH 4.13, Hepatitis C Antibody Non reactive, Hep C Ab Comment Comment 05/08/24 15:02: Troponin I 0.04 H 05/08/24 18:09: Troponin I 0.03 05/08/24 19:59: POC Glucose 231 H 05/09/24 05:34: POC Glucose 168 H 05/09/24 05:44: POC Glucose 144 H 05/09/24 05:57: WBC 5.3, RBC 4.13 L, Hgb 11.4 L, Hct 37.2, MCV 90.1, MCH 27.7, MCHC 30.8 L, RDW 17.1, Plt Count 164, MPV 9.2, Neut % (Auto) 58.2, Lymph % (Auto) 34.1, [place] % (Auto) 6.1, Eos % (Auto) 1.3, Baso % (Auto) 0.4, Neut # (Auto) 3.1, Lymph # (Auto) 1.8, [place] # (Auto) 0.3, Eos # (Auto) 0.1, Baso # (Auto) 0.0, Sodium 136, Potassium 4.4, Chloride 109 H, Carbon Dioxide 20 L, Anion Gap 11.4, BUN 17, Creatinine 1.30 H, Estimated Creat Clear 31, Estimated GFR 39 L, Est GFR ( Amer) 47 L, Glucose 165 H, Calcium 8.5, Magnesium 2.3, Total Bilirubin 0.4, AST 37 H, ALT 24, Alkaline Phosphatase 79, Troponin I 0.03, Total Protein 6.4, Albumin 3.5 D, Globulin 2.9, Albumin/Globulin Ratio 1.2 05/09/24 11:04: POC Glucose 193 H I & O for Last 24 hours: Intake & Output 05/06/24 05/07/24 05/08/24 05/09/24 23:59 23:59 23:59 23:59 Intake Total 480 / 720 240 / 240 Output Total 0 / 0 0 / 0 Balance 480 / 720 240 / 240 Weight 59.511 kg 60.509 kg Constitutional Constitutional: no acute distress *Routine HEENT Exam Head: Present normocephalic Eye: Present EOMI and PERRL ENT: Present mucous membranes moist *Routine Neck Exam Neck: Present supple; Absent lymphadenopathy *Routine Respiratory Exam Respiratory: Present CTA bilaterally *Routine Cardiovascular Exam Cardiovascular: Present tachycardia and irregular rhythm *Routine Abdominal Exam Abdominal: Present soft and normoactive bowel sounds; Absent tenderness *Routine Extremities Exam Extremities: Absent cyanosis, clubbing or edema *Routine Skin Exam Skin: Present warm; Absent rash *Routine Neurological Exam Neurological: Present alert, oriented X3, CN II-XII intact, sensory deficit and motor deficit Assessment and Plan *Assessment and plan (1) Adverse effects of medication: Status: Acute Category: Medical Code(s): T50.905A - Adverse effect of unspecified drugs, medicaments and biological s ubstances, initial encounter (2) Atrial flutter: Status: Acute Category: Medical Code(s): I48.92 - Unspecified atrial flutter (3) Hypotension: Status: Acute Qualifiers: Hypotension type: hypotension due to drug Qualified Code(s): I95.2 - Hypotension due to drugs Category: Medical Code(s): I95.9 - Hypotension, unspecified (4) Atrial flutter: Status: Acute Qualifiers: Atrial flutter type: unspecified Qualified Code(s): I48.92 - Unspecified atrial flutter Category: Medical Code(s): I48.92 - Unspecified atrial flutter (5) Pre-syncope: Status: Acute Category: Medical Code(s): R55 - Syncope and collapse (6) Hypertension: Status: Acute Qualifiers: Hypertension type: primary hypertension Qualified Code(s): I10 - Essential (primary) hypertension Category: Medical Code(s): I10 - Essential (primary) hypertension (7) Dizziness: Status: Resolved Category: Medical Code(s): R42 - Dizziness and giddiness (8) Asystole: Status: Acute Category: Medical Code(s): I46.9 - Cardiac arrest, cause unspecified (9) Symptomatic bradycardia: Status: Acute Category: Medical Code(s): R00.1 - Bradycardia, unspecified Plan Patient is a 84-year-old female with a history significant for LAD s/p stent, HFpEF, symptomatic bradycardia (resolved after cardiac stent), TIA with no residual weakness, hypertension, [id number] diabetes who presented with dizziness, presyncope today. Patient was recently admitted for symptomatic bradycardia which improved after LHC revealed significant stenosis of the LAD s/p stent. Patient was sent home on a event monitor which did not show further episodes of bradycardia. However, patient notes over the past few days she has been feeling more dizzy especially upon standing. 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 She then proceeded to come to the ED upon medication review, patient has been taking both losartan and irbesartan and had blood pressure in the systolic of 80s. Patient denies chest pain, shortness of breath, abdominal pain during this course. Workup in the ED included EKG revealing a flutter, hypotension with systolics in the 80s, troponin 0.04 plateaued. Cardiology was consulted in the ED who recommended beta-karin for A-flutter, and discontinuing losartan, and monitor overnight with telemetry. Case was discussed with the ED attending and decision was made to admit patient for new onset A-flutter, presyncope, dizziness, hypotension. #Pre-syncope, dizziness, resolved #Hypotension, resolved #Tachybradycardia syndrome #A-flutter with RVR #Symptomatic bradycardia #Transient asystole with seizure-like activity ? Patient had 2 episodes of seizure-like activity with underlying asystole on telemetry, heart rate in the 30s. This was transient and patient is currently in a flutter with intermittent RVR. She is alert and oriented, neurological exam revealed no focal findings. ? CT head unremarkable for acute findings. Does show chronic ischemic changes. ? As such, patient continues to have symptomatic bradycardia as well as a flutter. Patient did have stent in the LAD on 05/04/2024 and discharged with event monitor. Per cardiology, event monitor did not show any concerning arrhythmias. ? Spoke with cardiology today, Dr. Doss recommended cardioversion on Saturday and pacemaker on Saturday. Also recommended stopping metoprolol, starting amiodarone. ? IV amiodarone bolus and drip. Consider transitioning to p.o. amiodarone tomorrow. ? Started therapeutic Lovenox, discontinued Xarelto with upcoming procedures. ? Cardiology is following, appreciate recommendations. ? Continuous telemetry. ? Consider IV atropine if patient has another episode of asystole, symptomatic bradycardia. #Hypertension ? Washout irbesartan, losartan for the next 24 hours. Discontinue losartan. See above. #CAD s/p LAD stent #History of TIA ? Aspirin, Plavix, atorvastatin. #Type 2 diabetes ? LDSSI, ACHS glucose check. CODE STATUS: Full code DVT prophylaxis: Lovenox Diet: Cardiac
[2024-05-09 16:41] LABS: POC Glucose,Bedside 194 (70-110)
--- NOTE | 2024-05-09 17:51 | PC.NURSE ---
Patient tolerating amio well, afib on monitor. Patient alert and oriented times 4, placed on room air and oxygen saturating well. Lung sounds clear. Purr wick in place
[2024-05-09] MEDS: ATORVASTATIN 10MG TABLET 10 MG PO (20:36)
[2024-05-09] MEDS: ENOXAPARIN 60MG/0.6ML SYRINGE 60 MG SQ (20:36)
[2024-05-09] MEDS: CEFDINIR 300MG CAPSULE 300 MG PO (20:36)
[2024-05-10] VITALS (12 sets, daily range): BP systolic 94–130; BP diastolic 50–77; PULSE 60–94; RESP 16–22; TEMP 36.4–36.8; O2SAT 95–99; BMI 23.6
--- NOTE | 2024-05-10 02:44 | PC.NURSE ---
at 0230 patient heart rate dropped to 30s while on the bedside commode, this was noticed by another nurse who went into room and noticed patients eyes rolled back and patients head fell back and patient became stiff, this nurse was then called into the room patients heart rate at that time was 120s. patient was coming around but groggy, a BP was taken and noted to be 198/118. patient came around and was able to answer questions and was assisted back to bed. after getting in bed HR was 92 and BP is 111/66. patient stated she was feeling better. DISTANCE LEARNING PROGRAM COORDINATOR was notified.
[2024-05-10] MEDS: humaLOG 100 UNITS/ML 10ML VIAL (SSI) SQ ×2 (05:59→16:44)
[2024-05-10 07:13] LABS: Basophils % 0.2 % (0.1-2.0); Eosinophils # 0.1 K/mm3 (0.0-0.4); Eosinophils % 0.8 % (0.1-12.0); Hematocrit 32.3 % (37.0-47.0); Hemoglobin 9.9 g/dL (12.2-16.2); Lymphocytes # 1.2 K/mm3 (0.7-4.5); Mean Corpuscular HGB Conc 30.7 g/dL (31.8-35.4); Mean Corpuscular Hemoglobin 27.9 pg (27.0-31.2); Mean Corpuscular Volume 90.7 fl (81-99); Mean Platelet Volume 9.5 fl (7.4-10.4); Monocytes # 0.3 K/mm3 (0.1-1.0); Monocytes % 4.7 % (1.7-9.3); Neutrophils # 4.3 K/mm3 (1.8-7.8); Neutrophils % 74.3 % (37.0-80.0); Platelet Count 148 K/mm3 (142-424); Red Blood Count 3.56 M/mm3 (4.20-5.40); White Blood Count 5.8 K/mm3 (4.8-10.8)
[2024-05-10 07:14] LABS: Chloride 106 mmol/L (98-107); Potassium 3.9 mmoL/L (3.5-5.1); Sodium 132 mmol/L (136-145)
[2024-05-10 07:17] LABS: Anion Gap 7.9 mEq/L (5-15); Blood Urea Nitrogen 18 mg/dl (7-17); Calcium 8.3 mg/dl (8.4-10.2); Carbon Dioxide 22 mmol/L (22.0-30.0); Creatinine Clearance Estimated 33 mL/min (50-200); Estimated Glomerular Filt Rate 43 ml/min (>60); GFR (African American) 52 ML/MIN (>60); Glucose 244 mg/dl (74-100)
[2024-05-10 07:26] LABS: POC Glucose,Bedside 138 (70-110)
[2024-05-10 07:26] LABS: POC Glucose,Bedside 158 (70-110)
[2024-05-10] MEDS: AMIODARONE 200MG TABLET 200 MG PO ×2 (09:21→09:24)
[2024-05-10] MEDS: ENOXAPARIN 60MG/0.6ML SYRINGE 60 MG SQ ×2 (09:22→20:56)
[2024-05-10] MEDS: ASPIRIN EC 81MG TABLET 81 MG PO (09:22)
[2024-05-10] MEDS: CEFDINIR 300MG CAPSULE 300 MG PO ×2 (09:23→20:57)
[2024-05-10] MEDS: CLOPIDOGREL 75MG TAB 75 MG PO (09:23)
[2024-05-10 11:58] LABS: POC Glucose,Bedside 152 (70-110)
--- NOTE | 2024-05-10 16:09 | EXP.PN ---
Subjective *Date: 05/10/24 *Time: 16:09 Interval history: Overnight, patient had another episode of asystole and seizure-like activity lasting less than 1 minute. No postictal state. During interview, patient was lying in bed comfortably at this morning without acute distress. Denies chest pain, shortness of breath. Exam Data for Last 24 hours Vital signs and Labs for Last 24 Hours: Temp Pulse Resp BP Pulse Ox O2 Del Method O2 Flow Rate 97.6 F 90 21 106/60 L 99 Room Air 2 05/10/24 12:00 05/10/24 14:00 05/10/24 14:00 05/10/24 14:00 05/10/24 14:00 05/10/24 14:00 05/09/24 16:00 Laboratory Results - last 24 hr 05/09/24 16:19: POC Glucose 194 H 05/09/24 19:59: POC Glucose 138 H 05/10/24 05:40: POC Glucose 158 H 05/10/24 06:58: WBC 5.8, RBC 3.56 L, Hgb 9.9 L, Hct 32.3 L, MCV 90.7, MCH 27.9, MCHC 30.7 L, RDW 17.0, Plt Count 148, MPV 9.5, Neut % (Auto) 74.3, Lymph % (Auto) 20.0, [place] % (Auto) 4.7, Eos % (Auto) 0.8, Baso % (Auto) 0.2, Neut # (Auto) 4.3, Lymph # (Auto) 1.2, [place] # (Auto) 0.3, Eos # (Auto) 0.1, Baso # (Auto) 0.0, Sodium 132 L, Potassium 3.9, Chloride 106, Carbon Dioxide 22, Anion Gap 7.9, BUN 18 H, Creatinine 1.20 H, Estimated Creat Clear 33, Estimated GFR 43 L, Est GFR ( Amer) 52 L, Glucose 244 H, Calcium 8.3 L, Magnesium 2.0 D 05/10/24 11:44: POC Glucose 152 H I & O for Last 24 hours: Intake & Output 05/07/24 05/08/24 05/09/24 05/10/24 23:59 23:59 23:59 23:59 Intake Total 480 / 720 717.18 / 717.18 615 / 615 Output Total 0 / 0 0 / 0 300 / 300 Balance 480 / 720 717.18 / .18 315 / 315 Weight 59.511 kg 60.509 kg 60.509 kg Constitutional Constitutional: no acute distress *Routine HEENT Exam Head: Present normocephalic Eye: Present EOMI and PERRL ENT: Present mucous membranes moist *Routine Neck Exam Neck: Present supple; Absent lymphadenopathy *Routine Respiratory Exam Respiratory: Present CTA bilaterally *Routine Cardiovascular Exam Cardiovascular: Present irregular rhythm *Routine Abdominal Exam Abdominal: Present soft and normoactive bowel sounds; Absent tenderness *Routine Extremities Exam Extremities: Absent cyanosis, clubbing or edema *Routine Skin Exam Skin: Present warm; Absent rash *Routine Neurological Exam Neurological: Present alert, oriented X3, CN II-XII intact, sensory deficit and motor deficit Assessment and Plan *Assessment and plan (1) Adverse effects of medication: Status: Acute Category: Medical Code(s): T50.905A - Adverse effect of unspecified drugs, medicaments and biological substances, initial encounter (2) Atrial flutter: Status: Acute Category: Medical Code(s): I48.92 - Unspecified atrial flutter (3) Hypotension: Status: Acute Qualifiers: Hypotension type: hypotension due to drug Qualified Code(s): I95.2 - Hypotension due to drugs Category: Medical Code(s): I95.9 - Hypotension, unspecified (4) Atrial flutter: Status: Acute Qualifiers: Atrial flutter type: unspecified Qualified Code(s): I48.92 - Unspecified atrial flutter Category: Medical Code(s): I48.92 - Unspecified atrial flutter (5) Pre-syncope: Status: Acute Category: Medical Code(s): R55 - Syncope and collapse (6) Hypertension: Status: Acute Qualifiers: Hypertension type: primary hypertension Qualified Code(s): I10 - Essential (primary) hypertension Category: Medical Code(s): I10 - Essential (primary) hypertension (7) Dizziness: Status: Resolved Category: Medical Code(s): R42 - Dizziness and giddiness (8) Asystole: Status: Acute Category: Medical Code(s): I46.9 - Cardiac arrest, cause unspecified (9) Symptomatic bradycardia: Status: Acute Category: Medical Code(s): R00.1 - Bradycardia, unspecified Plan Patient is a 84-year-old female with a history significant for LAD s/p stent, HFpEF, symptomatic bradycardia (resolved after cardiac stent), TIA with no residual weakness, hypertension, rcy-vjejbsj-omkrrcrpl diabetes who presented with dizziness, presyncope today. Patient was recently admitted for symptomatic bradycardia which improved after LHC revealed significant stenosis of the LAD s/p stent. Patient was sent home on a event monitor which did not show further episodes of bradycardia. However, patient notes over the past few days she has been feeling more dizzy especially upon standing. In fact, she states she was on her way to follow-up with her care provider today but became dizzy and fell in the parking lot. She then proceeded to come to the ED upon medication review, patient has been taking both losartan and irbesartan and had blood pressure in the systolic of 80s. Patient denies chest pain, shortness of breath, abdominal pain during this course. Workup in the ED included EKG revealing a flutter, hypotension with systolics in the 80s, troponin 0.04 plateaued. Cardiology was consulted in the ED who recommended beta-karin for A-flutter, and discontinuing losartan, and monitor overnight with telemetry. Case was discussed with the ED attending and decision was made to admit patient for new onset A-flutter, presyncope, dizziness, hypotension. #Pre-syncope, dizziness, resolved #Hypotension, resolved #Tachybradycardia syndrome #A-flutter with RVR #Symptomatic bradycardia #Transient asystole with seizure-like activity ? On 05/09 morning around 5 AM, patient had 2 episodes of seizure-like activity with underlying asystole on telemetry, heart rate in the 30s. This was transient and patient is currently in a flutter with intermittent RVR. She is alert and oriented, neurological exam revealed no focal findings. ? On 05/10 morning around 2 AM, patient had another asystolic episode with heart rate in the 30s with seizure-like activity. Patient states she bit her tongue, but no postictal state. She does not remember the episode. ? CT head unremarkable for acute findings. Does show chronic ischemic changes. ? As such, patient continues to have symptomatic bradycardia as well as a flutter. Patient did have stent in the LAD on 05/04/2024 and discharged with event monitor. Per cardiology, event monitor did not show any concerning arrhythmias. ? Spoke with cardiology, Dr. Doss recommended cardioversion on Saturday and pacemaker on Saturday. Also recommended stopping metoprolol, starting amiodarone. ? Therapeutic Lovenox, will be discontinued tonight. Plan to start heparin drip tomorrow morning until pacemaker procedure on Saturday, per cardiology. ? Transitioned to p.o. amiodarone 200 mg daily, IV amiodarone discontinued 05/10. ? Donepezil, rivastigmine also discontinued given there risk of bradycardia arrhythmias. These were started about 3 weeks ago, patient started having symptoms about 1 to 2 weeks ago. ? Cardiology is following, appreciate recommendations. ? Continuous telemetry. #Hypertension ? Washout irbesartan, losartan. Discontinue losartan. See above. ? Resume irbesartan once BP tolerates. #CAD s/p LAD stent #History of TIA ? Aspirin, Plavix, atorvastatin. #Type 2 diabetes ? LDSSI, ACHS glucose check. CODE STATUS: Full code DVT prophylaxis: Lovenox Diet: Cardiac
[2024-05-10 16:46] LABS: POC Glucose,Bedside 209 (70-110)
[2024-05-10 17:14] LABS: PTT Heparin (inpatient only) 31.8 Seconds (50-75)
--- NOTE | 2024-05-10 18:59 | PC.NURSE ---
Pt is resting in bed. Has been up to [facility] with assist x1 twice this shift. Tolerated fair. Had one episodes of some SOA with tachycardia but rebounded quickly. AMiodarone gtt was DC one hour after PO administration at 1030. Pt to be NPO at 0000 for cardiac consult. Orders clarified this evening about heparin and lovenox. Give last dose of lovenox at 2100. Start Heparin 05/11 at 0900. Call light within reach. Family at bedside.
[2024-05-10 20:52] LABS: POC Glucose,Bedside 119 (70-110)
[2024-05-10] MEDS: ATORVASTATIN 10MG TABLET 10 MG PO (20:57)
[2024-05-11] VITALS (12 sets, daily range): BP systolic 96–131; BP diastolic 52–86; PULSE 74–110; RESP 16–20; TEMP 36.5–36.6; O2SAT 93–98; BMI 23.6
[2024-05-11 06:36] LABS: Chloride 110 mmol/L (98-107)
[2024-05-11 06:37] LABS: Potassium 3.7 mmoL/L (3.5-5.1); Sodium 136 mmol/L (136-145)
[2024-05-11 06:38] LABS: Basophils % 0.6 % (0.1-2.0); Eosinophils # 0.1 K/mm3 (0.0-0.4); Eosinophils % 1.2 % (0.1-12.0); Hematocrit 30.8 % (37.0-47.0); Hemoglobin 9.7 g/dL (12.2-16.2); Lymphocytes # 1.4 K/mm3 (0.7-4.5); Lymphocytes % 29.9 % (10-50); Mean Corpuscular HGB Conc 31.5 g/dL (31.8-35.4); Mean Corpuscular Hemoglobin 28.1 pg (27.0-31.2); Mean Corpuscular Volume 89.1 fl (81-99); Monocytes # 0.3 K/mm3 (0.1-1.0); Monocytes % 5.9 % (1.7-9.3); Neutrophils % 62.4 % (37.0-80.0); Platelet Count 160 K/mm3 (142-424); Red Blood Count 3.46 M/mm3 (4.20-5.40); Red Cell Distribution Width 17.4 % (11.5-17.5); White Blood Count 4.8 K/mm3 (4.8-10.8)
[2024-05-11 06:40] LABS: Anion Gap 8.7 mEq/L (5-15); Blood Urea Nitrogen 16 mg/dl (7-17); Calcium 8.1 mg/dl (8.4-10.2); Carbon Dioxide 21 mmol/L (22.0-30.0); Creatinine Clearance Estimated 36 mL/min (50-200); Estimated Glomerular Filt Rate 47 ml/min (>60); GFR (African American) 57 ML/MIN (>60); Glucose 145 mg/dl (74-100)
[2024-05-11] MEDS: ASPIRIN EC 81MG TABLET 81 MG PO (08:40)
[2024-05-11] MEDS: CLOPIDOGREL 75MG TAB 75 MG PO (08:40)
[2024-05-11] MEDS: AMIODARONE 200MG TABLET 200 MG PO (08:40)
--- NOTE | 2024-05-11 08:53 | HMH.PHAHEP ---
[facility] Pharmacy Heparin Dosing Demographic Data Admission date:: 05/11/24 Date: 05/11/24 Time: 08:53 Allergies Allergy/AdvReac Type Severity Reaction Status Date / Time Sulfa (Sulfonamide Allergy Unknown Unknown Verified 05/08/24 15:10 Antibiotics) allergy reaction Penicillins Allergy Other Verified 05/08/24 15:10 Height: 1.6 m Weight: 60.5 kg Indication Medication therapy:: Heparin Current Active Problems (Updated 05/09/24 @ 14:11 by Red Elaine MD) Asystole (Acute) Adverse effects of medication (Acute) Atrial flutter (Acute) Hypotension (Acute) Atrial flutter (Acute) Pre-syncope (Acute) Descending thoracic aortic aneurysm (Acute) Hypertension (Acute) Symptomatic bradycardia (Acute) Diabetes mellitus (Acute) Hyperlipidemia (Acute) History of coronary artery stent placement (Acute) Coronary artery disease (Acute) CVA?: No Bleeding problem?: No Kidney disease?: No [place]?: No Additional History:: PACEMAKER PLACEMENT SCHEDULED FOR 05/12/24 Desired PTT range:: 50-75 seconds Labs Anticoagulation Lab Results:: 05/11/24 05:48 Hgb 9.7 L Hct 30.8 L Plt Count 160 Monitoring Dose Monitor 1: Date: 05/11/24 Time: 08:35 PTT Result:: 30.9 Infusion Rate:: START HEPARIN INFUSION AT 900 UNITS/HR (18 ML/HR), 4200 UNITS BOLUS OF HEPARIN Dose Monitor 2: Date: 05/11/24 Time: 15:00 PTT Result:: 62.2 Infusion Rate:: CONTINUE WITH HEPARIN 900 UNITS/HR (18 ML/HR) Dose Monitor 3: Date: 05/11/24 Time: 21:00 PTT Result:: 69.7 Infusion Rate:: CONTINUE WITH HEPARIN 900 UNITS/HR (18 ML/HR) Dose Monitor 4: Date: 05/12/24 Time: 05:20 PTT Result:: 83.7 Infusion Rate:: DROP HEPARIN INFUSION TO 800 UNITS/HR (16 ML/HR) Core Measures Is INR > or = 2 at discharge?: No Most Recent Labs:: Laboratory Results - last 24 hr 05/10/24 11:44: POC Glucose 152 H 05/10/24 16:29: POC Glucose 209 H 05/10/24 16:31: APTT 31.8 L 09/22/24 20:43: POC Glucose 119 H 05/11/24 05:48: WBC 4.8, RBC 3.46 L, Hgb 9.7 L, Hct 30.8 L, MCV 89.1, MCH 28.1, MCHC 31.5 L, RDW 17.4, Plt Count 160, MPV 10.0, Neut % (Auto) 62.4, Lymph % (Auto) 29.9, [place] % (Auto) 5.9, Eos % (Auto) 1.2, Baso % (Auto) 0.6, Neut # (Auto) 3.0, Lymph # (Auto) 1.4, [place] # (Auto) 0.3, Eos # (Auto) 0.1, Baso # (Auto) 0.0, Sodium 136, Potassium 3.7, Chloride 110 H, Carbon Dioxide 21 L, Anion Gap 8.7, BUN 16, Creatinine 1.10 H, Estimated Creat Clear 36, Estimated GFR 47 L, Est GFR ( Amer) 57 L, Glucose 145 H D, Calcium 8.1 L, Magnesium 2.0 If INR was < than 2.0 why was therapy stopped?: heparin drip stopped Were Heparin and Warfarin started on the same day?: No If not, why?: heparin drip stopped
[2024-05-11] MEDS: HEPARIN SODIUM 5,000 UNIT/ML VIAL 4200 UNIT IV (09:12)
[2024-05-11] MEDS: HEPARIN SODIUM,PORCINE/D5W 500 ML 18 UNIT IV (09:13)
[2024-05-11 09:46] LABS: PTT Heparin (inpatient only) 30.9 Seconds (50-75)
--- NOTE | 2024-05-11 09:47 | PC.NURSE ---
Notified pharmacy of critical ptt of 30.9
--- NOTE | 2024-05-11 11:29 | P.PN_ITS ---
Subjective Subjective Date: 05/11/24 Time: 08:00 Principal diagnosis: New onset atrial flutter with tachybradycardia syndrome, presyncope Interval history: Patient had 2 events throughout the weekend brief asystole/pauses followed by sinus bradycardia-symptomatic. Labs reviewed and stable. Exam Data for Last 24 hours Vital signs and Labs for Last 24 Hours: Temp Pulse Resp BP Pulse Ox O2 Del Method O2 Flow Rate 98 F 74 18 113/59 L 98 Room Air 2 05/11/24 04:00 05/11/24 08:00 05/11/24 08:00 05/11/24 08:00 05/11/24 08:00 05/11/24 09:00 05/09/24 16:00 Laboratory Results - last 24 hr 05/10/24 11:44: POC Glucose 152 H 05/10/24 16:29: POC Glucose 209 H 05/10/24 16:31: APTT 31.8 L 05/10/24 20:43: POC Glucose 119 H 05/11/24 05:48: WBC 4.8, RBC 3.46 L, Hgb 9.7 L, Hct 30.8 L, MCV 89.1, MCH 28.1, MCHC 31.5 L, RDW 17.4, Plt Count 160, MPV 10.0, Neut % (Auto) 62.4, Lymph % (Auto) 29.9, [place] % (Auto) 5.9, Eos % (Auto) 1.2, Baso % (Auto) 0.6, Neut # (Auto) 3.0, Lymph # (Auto) 1.4, [place] # (Auto) 0.3, Eos # (Auto) 0.1, Baso # (Auto) 0.0, Sodium 136, Potassium 3.7, Chloride 110 H, Carbon Dioxide 21 L, Anion Gap 8.7, BUN 16, Creatinine 1.10 H, Estimated Creat Clear 36, Estimated GFR 47 L, Est GFR ( Amer) 57 L, Glucose 145 H D, Calcium 8.1 L, Magnesium 2.0 05/11/24 08:35: APTT 30.9 L I & O for Last 24 hours: Intake & Output 05/08/24 05/09/24 05/10/24 05/11/24 23:59 23:59 23:59 23:59 Intake Total 480 / 720 717.18 / 717.18 615 / 615 0 / 0 Output Total 0 / 0 0 / 0 600 / 600 0 / 0 Balance 480 / 720 717.18 / 717.18 15 / 15 0 / 0 Weight 131 lb 3.2 oz 133 lb 6.4 oz 133 lb 6.392 oz 133 lb 6.075 oz Constitutional Constitutional: no acute distress *Routine Respiratory Exam Respiratory: Present CTA bilaterally and symmetric chest movement *Routine Cardiovascular Exam Cardiovascular: Present RRR, Normal S1 and Normal S2 *Routine Abdominal Exam Abdominal: Present soft and normoactive bowel sounds; Absent tenderness *Routine Extremities Exam Extremities: Present full ROM and normal capillary refill; Absent edema *Routine Skin Exam Skin: Present intact, dry and warm Detailed Neck Exam: Thyroids Thyroid: Absent bruit Progress Note: A&P Assessment and plan (1) Adverse effects of medication: Status: Acute (2) Atrial flutter: Status: Acute (3) Hypotension: Status: Acute (4) Pre-syncope: Status: Acute (5) Hypertension: Status: Acute (6) Dizziness: Status: Resolved (7) Asystole: Status: Acute (8) Symptomatic bradycardia: Status: Acute Assessment and Plan Assessment and Plan for All Diagnoses:: Presyncope, dizziness Hypotension-resolved Tachybrady syndrome New onset a flutter with RVR-rate controlled now Transient pause/asystole with syncope All beta-blockers and AV node blockers have been held. Despite holding AV blockers patient continues to have episodes of long pauses/asystole and bradycardia. Will proceed with pacemaker placement tomorrow for tachybradyc syndrome. 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 There is a filling defect/thrombus that extends from the left subclavian vein into the left internal jugular vein, age- indeterminate. CV summary 05/11/2024: We will proceed with pacemaker placement tomorrow for tachybrady syndrome. Will consider EDENILSON/cardioversion afterwards or on an outpatient basis. Cardiac meds: Plavix 75 mg daily Atorvastatin 10 mg p.o. daily Amiodarone 200 mg daily Heparin drip
[2024-05-11] MEDS: humaLOG 100 UNITS/ML 10ML VIAL (SSI) SQ ×2 (12:10→20:34)
[2024-05-11 12:14] LABS: POC Glucose,Bedside 135 (70-110)
[2024-05-11 12:14] LABS: POC Glucose,Bedside 226 (70-110)
[2024-05-11 15:42] LABS: PTT Heparin (inpatient only) 62.2 Seconds (50-75)
[2024-05-11 17:43] LABS: POC Glucose,Bedside 158 (70-110)
--- NOTE | 2024-05-11 18:43 | PC.NURSE ---
Patient is alert and oriented x3 w/periods of mild confusion. She remains on RA. She's been aflutter on telemetry. HR goes up as high as 140's on exertion but returns to baseline at rest. She has scattered bruising to her entire body. She has denied any complaints this shift. Daughter has been at bedside. Bed is locked and in the lowest position, call light is within reach.
[2024-05-11] MEDS: ATORVASTATIN 10MG TABLET 10 MG PO (20:34)
[2024-05-11 21:41] LABS: PTT Heparin (inpatient only) 69.7 Seconds (50-75)
--- NOTE | 2024-05-11 21:48 | EXP.PN ---
Subjective *Date: 05/11/24 *Time: 18:00 Interval history: Patient feels well today. No distress, comfortable. No cardiac event overnight. No chest pain, SOB. Exam Data for Last 24 hours Vital signs and Labs for Last 24 Hours: Temp Pulse Resp BP Pulse Ox O2 Del Method O2 Flow Rate 97.9 F 110 H 20 110/86 97 Room Air 2 05/11/24 20:00 05/11/24 20:00 05/11/24 20:00 05/11/24 20:00 05/11/24 20:00 05/11/24 20:00 05/09/24 16:00 Laboratory Results - last 24 hr 05/11/24 05:33: POC Glucose 135 H 05/11/24 05:48: WBC 4.8, RBC 3.46 L, Hgb 9.7 L, Hct 30.8 L, MCV 89.1, MCH 28.1, MCHC 31.5 L, RDW 17.4, Plt Count 160, MPV 10.0, Neut % (Auto) 62.4, Lymph % (Auto) 29.9, [place] % (Auto) 5.9, Eos % (Auto) 1.2, Baso % (Auto) 0.6, Neut # (Auto) 3.0, Lymph # (Auto) 1.4, [place] # (Auto) 0.3, Eos # (Auto) 0.1, Baso # (Auto) 0.0, Sodium 136, Potassium 3.7, Chloride 110 H, Carbon Dioxide 21 L, Anion Gap 8.7, BUN 16, Creatinine 1.10 H, Estimated Creat Clear 36, Estimated GFR 47 L, Est GFR ( Amer) 57 L, Glucose 145 H D, Calcium 8.1 L, Magnesium 2.0 05/11/24 08:35: APTT 30.9 L 05/11/24 12:06: POC Glucose 226 H 05/11/24 15:18: APTT 62.2 05/11/24 17:35: POC Glucose 158 H 05/11/24 21:23: APTT 69.7 I & O for Last 24 hours: Intake & Output 05/08/24 05/09/24 05/10/24 05/11/24 23:59 23:59 23:59 23:59 Intake Total 480 / 720 717.18 / 717.18 615 / 615 540 / 540 Output Total 0 / 0 0 / 0 600 / 600 0 / 0 Balance 480 / 720 717.18 / .18 15 / 15 540 / 540 Weight 59.511 kg 60.509 kg 60.509 kg 60.5 kg Constitutional Constitutional: no acute distress *Routine HEENT Exam Head: Present normocephalic Eye: Present EOMI and PERRL ENT: Present mucous membranes moist *Routine Neck Exam Neck: Present supple; Absent lymphadenopathy *Routine Respiratory Exam Respiratory: Present CTA bilaterally *Routine Cardiovascular Exam Cardiovascular: Present irregular rhythm *Routine Abdominal Exam Abdominal: Present soft and normoactive bowel sounds; Absent tenderness *Routine Extremities Exam Extremities: Absent cyanosis, clubbing or edema *Routine Skin Exam Skin: Present warm; Absent rash *Routine Neurological Exam Neurological: Present alert, oriented X3, CN II-XII intact, sensory deficit and motor deficit Assessment and Plan *Assessment and plan (1) Adverse effects of medication: Status: Acute Category: Medical Code(s): T50.905A - Adverse effect of unspecified drugs, medicaments and biological substances, initial encounter (2) Atrial flutter: Status: Acute Category: Medical Code(s): I48.92 - Unspecified atrial flutter (3) Hypotension: Status: Acute Qualifiers: Hypotension type: hypotension due to drug Qualified Code(s): I95.2 - Hypotension due to drugs Category: Medical Code(s): I95.9 - Hypotension, unspecified (4) Atrial flutter: Status: Acute Qualifiers: Atrial flutter type: unspecified Qualified Code(s): I48.92 - Unspecified atrial flutter Category: Medical Code(s): I48.92 - Unspecified atrial flutter (5) Pre-syncope: Status: Acute Category: Medical Code(s): R55 - Syncope and collapse (6) Hypertension: Status: Acute Qualifiers: Hypertension type: primary hypertension Qualified Code(s): I10 - Essential (primary) hypertension Category: Medical Code(s): I10 - Essential (primary) hypertension (7) Dizziness: Status: Resolved Category: Medical Code(s): R42 - Dizziness and giddiness (8) Asystole: Status: Acute Category: Medical Code(s): I46.9 - Cardiac arrest, cause unspecified (9) Symptomatic bradycardia: Status: Acute Category: Medical Code(s): R00.1 - Bradycardia, unspecified Plan Patient is a 84-year-old female with a history significant for LAD s/p stent, HFpEF, symptomatic bradycardia (resolved after cardiac stent), TIA with no residual weakness, hypertension, [id number] diabetes who presented with dizziness, presyncope today. Patient was recently admitted for symptomatic bradycardia which improved after C revealed significant stenosis of the LAD s/p stent. Patient was sent home on a event monitor which did not show further episodes of bradycardia. However, patient notes over the past few days she has been feeling more dizzy especially upon standing. In fact, she states she was on her way to follow-up with her lens edge grinder machine today but became dizzy and fell in the parking lot. She then proceeded to come to the ED upon medication review, patient has been taking both losartan and irbesartan and had blood pressure in the systolic of 80s. Patient denies chest pain, shortness of breath, abdominal pain during this course. Workup in the ED included EKG revealing a flutter, hypotension with systolics in the 80s, troponin 0.04 plateaued. Cardiology was consulted in the ED who recommended beta-karin for A-flutter, and discontinuing losartan, and monitor overnight with telemetry. Case was discussed with the ED attending and decision was made to admit patient for new onset A-flutter, presyncope, dizziness, hypotension. #Pre-syncope, dizziness, resolved #Tachybradycardia syndrome #A-flutter #Transient asystole with seizure-like activity, resolved ? On 05/09 morning around 5 AM, patient had 2 episodes of seizure-like activity with underlying asystole on telemetry, heart rate in the 30s. This was transient and patient is currently in a flutter with intermittent RVR. She is alert and oriented, neurological exam revealed no focal findings. ? On 05/10 morning around 2 AM, patient had another asystolic episode with heart rate in the 30s with seizure-like activity. Patient states she bit her tongue, but no postictal state. She does not remember the episode. ? CT head unremarkable for acute findings. Does show chronic ischemic changes. ? As such, patient continues to have symptomatic bradycardia as well as a flutter. Patient did have stent in the LAD on 05/04/2024 and discharged with event monitor. Per cardiology, event monitor did not show any concerning arrhythmias. ? Cardiology planning for pacemaker tomorrow, cancelled plan for EDENILSON and cardioversion. Heparin drip until then. ? Transitioned to p.o. amiodarone 200 mg daily, IV amiodarone discontinued 05/10. Rate controlled mostly in 70-80's. ? Donepezil, rivastigmine also discontinued given there risk of bradycardia arrhythmias. These were started about 3 weeks ago, patient started having symptoms about 1 to 2 weeks ago. ? Cardiology is following, appreciate recommendations. ? Continuous telemetry. #Hypertension ? Washout irbesartan, losartan. Discontinue losartan. See above. ? Resume irbesartan once BP tolerates. #CAD s/p LAD stent #History of TIA ? Aspirin, Plavix, atorvastatin. #Type 2 diabetes ? LDSSI, ACHS glucose check. CODE STATUS: Full code DVT prophylaxis: Lovenox Diet: Cardiac
[2024-05-12] VITALS (22 sets, daily range): BP systolic 86–153; BP diastolic 51–89; PULSE 88–130; RESP 13–24; TEMP 36.6–36.9; O2SAT 93–100; BMI 23.6
--- NOTE | 2024-05-12 04:22 | PC.NURSE ---
Patient had no acute changes throughout shift. She remains on the Heparin gtt per MAR in preparation for cardiac procedures this date. VSS, NAD. Daughter remains at bedside
[2024-05-12 06:08] LABS: Basophils % 0.3 % (0.1-2.0); Eosinophils # 0.1 K/mm3 (0.0-0.4); Eosinophils % 1.4 % (0.1-12.0); Hematocrit 30.4 % (37.0-47.0); Hemoglobin 9.4 g/dL (12.2-16.2); Lymphocytes # 1.2 K/mm3 (0.7-4.5); Lymphocytes % 27.4 % (10-50); Mean Corpuscular HGB Conc 30.9 g/dL (31.8-35.4); Mean Corpuscular Volume 90.5 fl (81-99); Mean Platelet Volume 10.3 fl (7.4-10.4); Monocytes # 0.3 K/mm3 (0.1-1.0); Monocytes % 6.7 % (1.7-9.3); Neutrophils # 2.8 K/mm3 (1.8-7.8); Neutrophils % 64.3 % (37.0-80.0); Platelet Count 142 K/mm3 (142-424); Red Blood Count 3.35 M/mm3 (4.20-5.40); Red Cell Distribution Width 17.6 % (11.5-17.5); White Blood Count 4.4 K/mm3 (4.8-10.8)
[2024-05-12 06:20] LABS: Anion Gap 8.9 mEq/L (5-15); Blood Urea Nitrogen 15 mg/dl (7-17); Calcium 8.2 mg/dl (8.4-10.2); Carbon Dioxide 22 mmol/L (22.0-30.0); Chloride 109 mmol/L (98-107); Creatinine Clearance Estimated 36 mL/min (50-200); Estimated Glomerular Filt Rate 47 ml/min (>60); GFR (African American) 57 ML/MIN (>60); Glucose 140 mg/dl (74-100); Potassium 3.9 mmoL/L (3.5-5.1); Sodium 136 mmol/L (136-145)
[2024-05-12 06:38] LABS: PTT Heparin (inpatient only) 83.7 Seconds (50-75)
--- NOTE | 2024-05-12 06:51 | PC.NURSE ---
Spoke to Cristin with [facility] pharmacy to change Heparin gtt per OCT. Decrease gtt from 900u/hr to 800u/hr. Order placed to repeat aPTT in 6 hours from now.
[2024-05-12] MEDS: HEPARIN SODIUM,PORCINE/D5W 500 ML 16 UNIT IV (06:53)
--- NOTE | 2024-05-12 07:22 | IR_ITS ---
APPROVED REPORT Patient Location: Inpatient PROCEDURES 1. Pocket formation for Permanent Pacemaker Placement. 2. Placement of an atrial sensing and pacing coil into the right atrial appendage. 3. Placement of a ventricular sensing and pacing coil in the right ventricular apex. 4. Permanent Pacemaker Placement. INDICATION Symptomatic bradycardia, Syncope, 6 seconds of asystole, Tachy/shara syndrome Informed consent was obtained prior to the procedure. COMPLICATIONS NONE Estimated Blood Loss: LESS THAN 10 ML TECHNIQUE 1% Lidocaine with epinephrine used to anesthetized the right anterior aspect of the chest. Scalpel was used to make the initial cutaneous incision while electrocautery was used to dissect down tinto the fascia. The fascia was lifted off the pectoralis muscle and digitally manipulated creating a pocket for the pacemaker. The patient was then placed in Trendelenburg position and the subclavian vein was accessed twice via the Selinger technique, there are two wires in the vein. A 6 Norwegian sheath was placed under fluoroscopic guidance into the subclavian vein over one of the wires while keeping the other wire in place within the subclavian vein. The dilator was removed from the sheath. Using fluoroscopic guidance, the ventricular lead was placed into the right ventricular apex, screwed and secured into place. Electronic interrogation proved acceptable thresholds and voltage within the lead. Using 3-0 silk, the ventricular lead was then secured into place. Lead was secured to the facia using the 3-0 silk. Following this, the sheath was pealed away. An additional 6 Norwegian fresh sheath and dilator was placed over the existing wire. Using fluoroscopic guidance, the atrial lead was the placed into the right atrial appendage and screwed and secured in place. Electrical interrogation demonstrated acceptable thresholds and voltage number. The atrial lead was then secured into place using 3-0 silk. 1 gram of Ancef was used to flush the pocket. Following the pacemaker generator being secured to the fascia and in place, Monocryl was used to close the subcutaneous layers while carmen were used to close the cutaneous layer. A pressure dressing was placed and the patient was transferred to the postop holding area in stable condition for postoperative care. INTERROGATION Generator Model number: Spockly [id number] Generator Serial number: [id number] Atrial lead model number: Tendril STS [id number] Atrial lead serial number: [id number] P-wave: 3 mV/Atrial Fibrillation Impedance: 392 Ohms Threshold: Right Ventricular lead model number: Rojas STS [id number] Right Ventricular lead serial number: [id number] R-wave: 15 mV Impedance: 752 Ohms Threshold: 1.0V @ 0.4ms Pacing Parameters: Mode: DDDR Base/Max Track:60 ppm / 130 ppm No diaphragmatic stimulation at 10 volts. IMPRESSION 1. Successful pocket formation for Permanent Pacemaker Placement. 2. Successful placement of an atrial sensing and pacing coil into the right atrial appendage. 3. Successful placement of a ventricular sensing and pacing coil in the right ventricular apex. 4. Successful permanent Pacemaker Placement. PLAN 1. Postop wound care. Electronically signed by : Randell Doss MD 05/18/2024 15:59:15
[2024-05-12] MEDS: CLOPIDOGREL 75MG TAB 75 MG PO (08:22)
[2024-05-12] MEDS: AMIODARONE 200MG TABLET 200 MG PO (08:22)
[2024-05-12] MEDS: ASPIRIN EC 81MG TABLET 81 MG PO (08:22)
--- NOTE | 2024-05-12 10:42 | P.PN_ITS ---
Subjective Subjective Date: 05/12/24 Time: 08:00 Principal diagnosis: New onset atrial flutter with tachybradycardia syndrome, presyncope Interval history: Patient doing well this morning with no complaints. Patient had no further events throughout the evening. Morning labs reviewed and stable. Exam Data for Last 24 hours Vital signs and Labs for Last 24 Hours: Temp Pulse Resp BP Pulse Ox O2 Del Method O2 Flow Rate 98.0 F 100 H 18 150/72 H 97 Room Air 2 05/12/24 08:00 05/12/24 08:00 05/12/24 06:00 05/12/24 06:00 05/12/24 06:00 05/12/24 09:52 05/09/24 16:00 Laboratory Results - last 24 hr 05/11/24 05:33: POC Glucose 135 H 05/11/24 12:06: POC Glucose 226 H 05/11/24 15:18: APTT 62.2 05/11/24 17:35: POC Glucose 158 H 05/11/24 21:23: APTT 69.7 05/12/24 05:20: WBC 4.4 L, RBC 3.35 L, Hgb 9.4 L, Hct 30.4 L, MCV 90.5, MCH 28.0, MCHC 30.9 L, RDW 17.6 H, Plt Count 142, MPV 10.3, Neut % (Auto) 64.3, Lymph % (Auto) 27.4, [place] % (Auto) 6.7, Eos % (Auto) 1.4, Baso % (Auto) 0.3, Neut # (Auto) 2.8, Lymph # (Auto) 1.2, [place] # (Auto) 0.3, Eos # (Auto) 0.1, Baso # (Auto) 0.0, APTT 83.7 H*, Sodium 136, Potassium 3.9, Chloride 109 H, Carbon Dioxide 22, Anion Gap 8.9, BUN 15, Creatinine 1.10 H, Estimated Creat Clear 36, Estimated GFR 47 L, Est GFR ( Amer) 57 L, Glucose 140 H, Calcium 8.2 L, Magnesium 2.0 I & O for Last 24 hours: Intake & Output 05/09/24 05/10/24 05/11/24 05/12/24 23:59 23:59 23:59 23:59 Intake Total 717.18 / 717.18 615 / 615 540 / 806 266 / 266 Output Total 0 / 0 600 / 600 0 / 600 600 / 600 Balance 717.18 / 717.18 540 / 206 -334 / -334 Weight 133 lb 6.4 oz 133 lb 6.392 oz 133 lb 6.075 oz 133 lb 6.075 oz Constitutional Constitutional: no acute distress *Routine HEENT Exam Head: Present normocephalic Eye: Present EOMI and PERRL ENT: Present mucous membranes moist *Routine Neck Exam Neck: Present supple; Absent lymphadenopathy *Routine Respiratory Exam Respiratory: Present CTA bilaterally *Routine Cardiovascular Exam Cardiovascular: Present irregular rhythm *Routine Abdominal Exam Abdominal: Present soft and normoactive bowel sounds; Absent tenderness *Routine Extremities Exam Extremities: Absent cyanosis, clubbing or edema *Routine Skin Exam Skin: Present warm; Absent rash *Routine Neurological Exam Neurological: Present alert, oriented X3, CN II-XII intact, sensory deficit and motor deficit Progress Note: A&P Assessment and plan (1) Adverse effects of medication: Status: Acute (2) Atrial flutter: Status: Acute (3) Hypotension: Status: Acute (4) Pre-syncope: Status: Acute (5) Hypertension: Status: Acute (6) Dizziness: Status: Resolved (7) Asystole: Status: Acute (8) Symptomatic bradycardia: Status: Acute Assessment and Plan Assessment and Plan for All Diagnoses:: Presyncope, dizziness Hypotension-resolved Tachybrady syndrome New onset a flutter with RVR-rate controlled now Transient pause/asystole with syncope All beta-blockers and AV node blockers have been held. Despite holding AV blockers patient continues to have episodes of long pauses/asystole and bradycardia. Will proceed with pacemaker placement tomorrow for tachybradyc syndrome. 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 There is a filling defect/thrombus that extends from the left subclavian vein into the left internal jugular vein, age- indeterminate. CV summary 05/12/2024: We will proceed with pacemaker placement today for tachybrady syndrome. Will consider EDENILSON/cardioversion afterwards or on an outpatient basis. Cardiac meds: Plavix 75 mg daily Atorvastatin 10 mg p.o. daily Amiodarone 200 mg daily Heparin drip
[2024-05-12 12:09] LABS: POC Glucose,Bedside 130 (70-110)
[2024-05-12 12:39] LABS: Activated Partial Thrombo Time 45.3 seconds (22.8-30.6); INR 0.93 (0.9-1.1); Prothrombin Time 10.5 seconds (10.1-12.5)
--- NOTE | 2024-05-12 14:37 | PC.NURSE ---
1430 pt left floor with laborer hide house RN
[2024-05-12] MEDS: MIDAZOLAM HCL 1MG/1ML 5ML VIAL 1 MG IV (15:29)
[2024-05-12] MEDS: CLINDAMYCIN PHOSPHATE/D5W 900 MG/50 ML PIGGYBACK 100 MG IV (15:29)
[2024-05-12] MEDS: 0.9 % SODIUM CHLORIDE 1000ML 1,000 ML 25 ML IV (15:29)
[2024-05-12] MEDS: FENTANYL 100MCG/2ML VIAL 50 MCG IV (15:30)
[2024-05-12] MEDS: CLINDAMYCIN PHOSPHATE 900 MG in 0.9 % SODIUM CHLORIDE 100 ML 100 MG TP (15:48)
[2024-05-12] MEDS: LIDOCAINE 1% W/EPI 1:100,000 20ML VIAL 20 ML SQ (15:48)
[2024-05-12] MEDS: diphenhydrAMINE 50MG/ML VIAL 50 MG IV (15:49)
--- NOTE | 2024-05-12 15:55 | XR_ITS ---
FINAL REPORT CLINICAL HISTORY: Confirm pacemaker/AID placement COMPARISON: None FINDINGS: A right subclavian dual-lead pacemaker is present. No acute pulmonary opacity is present. There is no evidence of effusion or pneumothorax. Mediastinum is unremarkable. Heart size is normal. IMPRESSION: Right subclavian dual-lead pacemaker without acute pulmonary abnormality. Specifically no evidence of pneumothorax is seen. Reviewed, Interpreted and Dictated by Jackie Pickett MD Transcribed by Giselle Michelle Authenticated and [facility]
[2024-05-12 17:50] LABS: POC Glucose,Bedside 118 (70-110)
[2024-05-12] MEDS: humaLOG 100 UNITS/ML 10ML VIAL (SSI) SQ (20:03)
[2024-05-12] MEDS: ATORVASTATIN 10MG TABLET 10 MG PO (20:04)
--- NOTE | 2024-05-12 20:24 | P.PN_ITS ---
Subjective *Date: 05/12/24 *Time: 16:41 Interval history: Patient was pleasant on interview this morning. No complaints. Heart rate remains fast but she is stable on room air. No nausea or vomiting. Awaiting pacemaker placement. Family at bedside. Medical Exam Vital signs and Labs for Last 24 Hours: Vital Signs Temp Pulse Pulse Resp BP BP Pulse Ox 05/12/24 18:45 112 H 20 86/69 L 98 05/12/24 18:37 05/12/24 18:00 116 H 18 124/65 97 05/12/24 17:45 111 H 20 112/68 97 05/12/24 17:15 107 H 20 99/67 L 95 05/12/24 17:00 05/12/24 17:00 116 H 18 102/56 L 94 L 05/12/24 16:45 123 H 18 116/67 98 05/12/24 16:30 124 H 94 L 05/12/24 16:30 118 H 18 113/70 94 L 05/12/24 16:17 120 H 05/12/24 16:03 125 H 16 125/89 99 05/12/24 14:00 119 H 18 153/60 H 96 05/12/24 13:50 05/12/24 12:00 98.0 F 05/12/24 12:00 120 H 05/12/24 12:00 120 H 21 114/67 97 05/12/24 11:36 05/12/24 10:00 108 H 18 128/66 96 05/12/24 09:52 05/12/24 08:00 98.0 F 05/12/24 08:00 99 H 18 131/74 97 05/12/24 08:00 116 H 97 05/12/24 08:00 100 H 05/12/24 06:00 106 H 18 150/72 H 97 05/12/24 04:00 130 H 05/12/24 04:00 109 H 18 136/80 95 05/12/24 02:00 106 H 13 123/64 95 05/12/24 00:00 110 H 05/12/24 00:00 97.9 F 88 13 107/51 L 95 05/11/24 22:00 107 H 20 117/66 96 O2 Del Method 05/12/24 18:45 Room Air 05/12/24 18:37 Room Air 05/12/24 18:00 Room Air 05/12/24 17:45 Room Air 05/12/24 17:15 Room Air 05/12/24 17:00 Room Air 05/12/24 17:00 Room Air 05/12/24 16:45 Room Air 05/12/24 16:30 Room Air 05/12/24 16:30 Room Air 05/12/24 16:17 05/12/24 16:03 Room Air 05/12/24 14:00 Room Air 05/12/24 13:50 Room Air 05/12/24 12:00 05/12/24 12:00 05/12/24 12:00 Room Air 05/12/24 11:36 Room Air 05/12/24 10:00 Room Air 05/12/24 09:52 Room Air 05/12/24 08:00 05/12/24 08:00 Room Air 05/12/24 08:00 Room Air 05/12/24 08:00 05/12/24 06:00 Room Air 05/12/24 04:00 05/12/24 04:00 Room Air 05/12/24 02:00 Room Air 05/12/24 00:00 05/12/24 00:00 Room Air 05/11/24 22:00 Room Air Intake and Output 05/12/24 05/12/24 05/12/24 07:59 15:59 23:59 Intake Total 266 / 386 120 / 386 Output Total 600 / 600 0 / 600 Balance -334 / -214 0 / -214 120 / -214 Intake: Intake, Oral Amount 0 / 120 120 / 120 Infusion Intake 266 / 266 Heparin Sodium,Porcine/D5w 500 266 / 266 ml @ 900 UNITS/HR 18 mls/hr IV .Q25H [facility] Rx#:[id number] Output: Output, Urine Amount 600 / 600 0 / 600 Other: Number of Voids 3 Number of Unmeasured Voids 2 Weight 60.5 kg Patient Weight 05/12/24 23:59 Weight 60.5 kg Laboratory Results - last 24 hr 05/11/24 21:23: APTT 69.7 05/12/24 05:20: WBC 4.4 L, RBC 3.35 L, Hgb 9.4 L, Hct 30.4 L, MCV 90.5, MCH 28.0, MCHC 30.9 L, RDW 17.6 H, Plt Count 142, MPV 10.3, Neut % (Auto) 64.3, Lymph % (Auto) 27.4, [place] % (Auto) 6.7, Eos % (Auto) 1.4, Baso % (Auto) 0.3, Neut # (Auto) 2.8, Lymph # (Auto) 1.2, [place] # (Auto) 0.3, Eos # (Auto) 0.1, Baso # (Auto) 0.0, APTT 83.7 H*, Sodium 136, Potassium 3.9, Chloride 109 H, Carbon Dioxide 22, Anion Gap 8.9, BUN 15, Creatinine 1.10 H, Estimated Creat Clear 36, Estimated GFR 47 L, Est GFR ( Amer) 57 L, Glucose 140 H, Calcium 8.2 L, Magnesium 2.0 05/12/24 11:14: PT 10.5, INR 0.93, APTT 45.3 H 05/12/24 11:47: POC Glucose 130 H 05/12/24 17:26: POC Glucose 118 H I & O for Labs for Last 24 Hours: Intake & Output 05/09/24 05/10/24 05/11/24 05/12/24 23:59 23:59 23:59 23:59 Intake Total 717.18 / 717.18 615 / 615 540 / 806 386 / 386 Output Total 0 / 0 600 / 600 0 / 600 600 / 600 Balance 717.18 / 717.18 540 / 206 -214 / -214 Weight 60.509 kg 60.509 kg 60.5 kg 60.5 kg Constitutional: Present no acute distress, average body habitus and chronically ill appearing Head: Present atraumatic and normocephalic Respiratory: Present normal respiratory effort; Absent rhonchi, wheezes or crackles Cardiac: Present Irregularly Regular and Tachycardia GI: Present normal bowel sounds; Absent tenderness Extremities: Present normal inspection and full ROM Skin: Present intact; Absent erythema Neuro: Present Grossly Intact, alert, awake and moves all extremities Comment:: Oriented to self, knows she is in the hospital. Thinks she is in [place]. Does not know date or time. Does not know why she came to the hospital Assessment and Plan *Assessment and plan (1) Atrial flutter: Status: Acute Category: Medical Code(s): I48.92 - Unspecified atrial flutter (2) Atrial flutter: Status: Acute Qualifiers: Atrial flutter type: unspecified Qualified Code(s): I48.92 - Unspecified atrial flutter Category: Medical Code(s): I48.92 - Unspecified atrial flutter (3) Pre-syncope: Status: Acute Category: Medical Code(s): R55 - Syncope and collapse (4) Adverse effects of medication: Status: Acute Category: Medical Code(s): T50.905A - Adverse effect of unspecified drugs, medicaments and biological substances, initial encounter (5) Hypotension: Status: Acute Qualifiers: Hypotension type: hypotension due to drug Qualified Code(s): I95.2 - Hypotension due to drugs Category: Medical Code(s): I95.9 - Hypotension, unspecified (6) Hypertension: Status: Acute Qualifiers: Hypertension type: primary hypertension Qualified Code(s): I10 - Essential (primary) hypertension Category: Medical Code(s): I10 - Essential (primary) hypertension (7) Dizziness: Status: Resolved Category: Medical Code(s): R42 - Dizziness and giddiness (8) Asystole: Status: Acute Category: Medical Code(s): I46.9 - Cardiac arrest, cause unspecified (9) Symptomatic bradycardia: Status: Acute Category: Medical Code(s): R00.1 - Bradycardia, unspecified (10) Dementia: Status: Acute Qualifiers: Dementia type: unspecified type Dementia severity: unspecified severity Dementia behavioral or psychological symptom: unspecified whether behavioral, psychotic, or mood disturbance or anxiety Qualified Code(s): F03.90 - Unspecified dementia, unspecified severity, without behavioral disturbance, psychotic disturbance, mood disturbance, and anxiety Category: Medical Code(s): F03.90 - Unspecified dementia, unspecified severity, without behavioral disturbance, psychotic disturbance, mood disturbance, and anxiety Plan Patient is a 84-year-old female with a history significant for LAD s/p stent, HFpEF, symptomatic bradycardia (resolved after cardiac stent), TIA with no re sidual weakness, hypertension, zam-xidbrso-sjxfrrxey diabetes who presented with dizziness, presyncope today. Patient was recently admitted for symptomatic bradycardia which improved after C revealed significant stenosis of the LAD s/p stent. Patient was sent home on a event monitor which did not show further episodes of bradycardia. However, patient notes over the past few days she has been feeling more dizzy especially upon standing. In fact, she states she was on her way to follow-up with her insurance verification representative today but became dizzy and fell in the parking lot. She then proceeded to come to the ED upon medication review, patient has been taking both losartan and irbesartan and had blood pressure in the systolic of 80s. Patient denies chest pain, shortness of breath, abdominal pain during this course. Workup in the ED included EKG revealing a flutter, hypotension with systolics in the 80s, troponin 0.04 plateaued. Cardiology was consulted in the ED who recommended beta-karin for A-flutter, and discontinuing losartan, and monitor overnight with telemetry. Case was discussed with the ED attending and decision was made to admit patient for new onset A-flutter, presyncope, dizziness, hypotension. Need for pacemaker today. Will monitor overnight. Anticipate discharge tomorrow. Problems addressed as follows: #Pre-syncope, dizziness, resolved #Tachybradycardia syndrome #A-flutter #Transient asystole with seizure-like activity, resolved ? On 05/09 morning around 5 AM, patient had 2 episodes of seizure-like activity with underlying asystole on telemetry, heart rate in the 30s. This was transient and patient is currently in a flutter with intermittent RVR. She is alert and oriented, neurological exam revealed no focal findings. ? On 05/10 morning around 2 AM, patient had another asystolic episode with heart rate in the 30s with seizure-like activity. Patient states she bit her tongue, but no postictal state. She does not remember the episode. ? As such, patient continues to have symptomatic bradycardia as well as a flutter. Patient did have stent in the LAD on 05/04/2024 and discharged with event monitor. Per cardiology, event monitor did not show any concerning arrhythmias. -Continue p.o. amiodarone 200 mg daily. - Donepezil, rivastigmine also discontinued given there risk of bradycardia arrhythmias. These were started about 3 weeks ago, patient started having symptoms about 1 to 2 weeks ago. - Discussed case with cardiology, all rate controlling medications held at this time. Proceed with pacemaker placement today for tachybradycardia syndrome. Heparin drip on hold prior to cath. Will address rate controlling medications after placement of pacemaker. -Hemoglobin 9.4 today, 12.3 on admission. No signs of infection. Magnesium normal at 2.0. Creatinine 1.1, BUN 15.. Repeat CBC, CMP, magnesium ordered for the morning. #Hypertension ? Washout irbesartan, losartan. Discontinue losartan. See above. ? Resume irbesartan once BP tolerates. Pressure low at 101/60. #CAD s/p LAD stent #History of TIA ? Aspirin, Plavix, atorvastatin. #Type 2 diabetes ? LDSSI, ACHS glucose check. CODE STATUS: Full code Diet: Cardiac
[2024-05-12] MEDS: OXYCODONE 5MG W/APAP 325MG TABLET 1 EACH PO ×2 (21:42→22:43)
[2024-05-13] VITALS (11 sets, daily range): BP systolic 90–141; BP diastolic 28–79; PULSE 86–121; RESP 17–30; TEMP 36.8–37.2; O2SAT 93–99; BMI 23.7
[2024-05-13 06:00] LABS: Anion Gap 9.5 mEq/L (5-15); Blood Urea Nitrogen 16 mg/dl (7-17); Calcium 8.1 mg/dl (8.4-10.2); Carbon Dioxide 19 mmol/L (22.0-30.0); Chloride 108 mmol/L (98-107); Creatinine Clearance Estimated 37 mL/min (50-200); Estimated Glomerular Filt Rate 47 ml/min (>60); GFR (African American) 57 ML/MIN (>60); Glucose 169 mg/dl (74-100); Potassium 4.5 mmoL/L (3.5-5.1); Sodium 132 mmol/L (136-145)
[2024-05-13 06:07] LABS: Basophils % 0.3 % (0.1-2.0); Eosinophils # 0.1 K/mm3 (0.0-0.4); Eosinophils % 1.5 % (0.1-12.0); Hematocrit 30.4 % (37.0-47.0); Hemoglobin 9.3 g/dL (12.2-16.2); Lymphocytes # 1.4 K/mm3 (0.7-4.5); Lymphocytes % 27.3 % (10-50); Mean Corpuscular HGB Conc 30.7 g/dL (31.8-35.4); Mean Corpuscular Hemoglobin 28.1 pg (27.0-31.2); Mean Corpuscular Volume 91.5 fl (81-99); Mean Platelet Volume 9.7 fl (7.4-10.4); Monocytes # 0.3 K/mm3 (0.1-1.0); Monocytes % 5.1 % (1.7-9.3); Neutrophils # 3.3 K/mm3 (1.8-7.8); Neutrophils % 65.7 % (37.0-80.0); Platelet Count 149 K/mm3 (142-424); Red Blood Count 3.32 M/mm3 (4.20-5.40); Red Cell Distribution Width 17.2 % (11.5-17.5)
[2024-05-13] MEDS: humaLOG 100 UNITS/ML 10ML VIAL (SSI) SQ (06:20)
[2024-05-13 06:25] LABS: POC Glucose,Bedside 185 (70-110)
--- NOTE | 2024-05-13 08:22 | EXP.DC.SUM ---
General Admission date:: 05/08/24 Discharge date: 05/13/24 HPI HPI HPI: Patient is a 84-year-old female with a history significant for LAD s/p stent, HFpEF, symptomatic bradycardia (resolved after cardiac stent), CVA with no residual weakness, hypertension, ahs-girjdtv-xsvqisezf diabetes who presented with dizziness, presyncope today. Patient was recently admitted for symptomatic bradycardia which improved after LHC revealed significant stenosis of the LAD s/p stent. Patient was sent home on a event monitor which did not show further episodes of bradycardia. However, patient notes over the past few days she has been feeling more dizzy especially upon standing. Upon medication review, patient has been taking both losartan and irbesartan and had blood pressure in the systolic of 80s. Patient denies chest pain, shortness of breath, abdominal pain during this course. Workup in the ED included EKG revealing a flutter, hypotension with systolics in the 80s, troponin 0.04 plateaued. Cardiology was consulted in the ED who recommended beta-karin for A-flutter, and discontinuing losartan, and monitor overnight with telemetry. Case was discussed with the ED attending and decision was made to admit patient for A-flutter, hypotension. Hospital Course Hospital Course Hospital Course: Patient is a 84-year-old female with a history significant for LAD s/p stent, HFpEF, symptomatic bradycardia (resolved after cardiac stent), TIA with no residual weakness, hypertension, dln-xxuriya-ocpubfmyw diabetes who presented with dizziness, presyncope today. Patient was recently admitted for symptomatic bradycardia which improved after LHC revealed significant stenosis of the LAD s/p stent. Patient was sent home on a event monitor which did not show further episodes of bradycardia. However, patient notes over the past few days she has been feeling more dizzy especially upon standing. 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 She then proceeded to come to the ED upon medication review, patient has been taking both losartan and irbesartan and had blood pressure in the systolic of 80s. Patient denies chest pain, shortness of breath, abdominal pain during this course. Workup in the ED included EKG revealing a flutter, hypotension with systolics in the 80s, troponin 0.04 plateaued. Cardiology was consulted in the ED who recommended beta-karin for A-flutter, and discontinuing losartan, and monitor overnight with telemetry. Case was discussed with the ED attending and decision was made to admit patient for new onset A-flutter, presyncope, dizziness, hypotension. Taken for pacemaker. Started on digoxin. Stable to discharge home with follow-up with cardiology. Problems addressed as follows: #Pre-syncope, dizziness, resolved #Tachybradycardia syndrome #A-flutter #Transient asystole with seizure-like activity, resolved ? On 05/09 morning around 5 AM, patient had 2 episodes of seizure-like activity with underlying asystole on telemetry, heart rate in the 30s. This was transient and patient is currently in a flutter with intermittent RVR. She is alert and oriented, neurological exam revealed no focal findings. On 05/10 morning around 2 AM, patient had another asystolic episode with heart rate in the 30s with seizure-like activity. Patient states she bit her tongue, but no postictal state. She does not remember the episode. As such, patient continues to have symptomatic bradycardia as well as a flutter. Patient did have stent in the LAD on 05/04/2024 and discharged with event monitor. Per cardiology, event monitor did not show any concerning arrhythmias. Initially on amiodarone during admission. This was discontinued and she was transition to digoxin for better rate control without impacting her blood pressure. Became bradycardic previously with beta-karin. Pacemaker placed day before discharge. Close follow-up with cardiology. On review of medications, her donepezil and rivastigmine have a risk of bradycardia and arrhythmias. They were discontinued as she had started them 3 weeks prior to admission and started having worsening symptoms 2 weeks prior to admission. Ambulating independently. Blood pressure within acceptable range. Heart rate improving. Stable to discharge home. -Will discharge with home health to assist with therapy after arriving home and for best chance to return to baseline level of function. #Hypertension ? Blood pressure soft during admission. Held irbesartan. Reevaluate for need to initiate pressure meds at follow-up with cardiology. Blood pressure 114/68 on day of discharge. #CAD s/p LAD stent #History of TIA ? Aspirin, Plavix, atorvastatin. #Type 2 diabetes: Well-controlled during admission. Continue linagliptin 5 mg daily discharge. Total time spent on discharge 35 minutes in counseling, documentation, chart review, and direct care with patient. Exam Data for Last 24 hours Vital signs and Labs for Last 24 Hours: Temp Pulse Resp BP Pulse Ox O2 Del Method O2 Flow Rate 98.2 F 86 17 90/54 L 96 Room Air 2 05/13/24 04:00 05/13/24 06:00 05/13/24 06:00 05/13/24 06:00 05/13/24 06:00 05/13/24 08:00 05/09/24 16:00 Laboratory Results - last 24 hr 05/12/24 11:14: PT 10.5, INR 0.93, APTT 45.3 H 05/12/24 11:47: POC Glucose 130 H 05/12/24 17:26: POC Glucose 118 H 05/13/24 05:30: WBC 5.0, RBC 3.32 L, Hgb 9.3 L, Hct 30.4 L, MCV 91.5, MCH 28.1, MCHC 30.7 L, RDW 17.2, Plt Count 149, MPV 9.7, Neut % (Auto) 65.7, Lymph % (Auto) 27.3, [place] % (Auto) 5.1, Eos % (Auto) 1.5, Baso % (Auto) 0.3, Neut # (Auto) 3.3, Lymph # (Auto) 1.4, [place] # (Auto) 0.3, Eos # (Auto) 0.1, Baso # (Auto) 0.0, Sodium 132 L, Potassium 4.5, Chloride 108 H, Carbon Dioxide 19 L, Anion Gap 9.5, BUN 16, Creatinine 1.10 H, Estimated Creat Clear 37, Estimated GFR 47 L, Est GFR ( Amer) 57 L, Glucose 169 H, Calcium 8.1 L, Magnesium 2.0 05/13/24 06:17: POC Glucose 185 H I & O for Last 24 hours: Intake & Output 05/10/24 05/11/24 05/12/24 05/13/24 23:59 23:59 23:59 23:59 Intake Total 615 / 615 540 / 806 386 / 626 240 / 240 Output Total 600 / 600 0 / 600 600 / 600 Balance 540 / 206 - 240 / 240 Weight 60.509 kg 60.5 kg 60.5 kg 60.8 kg Constitutional Constitutional: no acute distress, average body habitus, chronically ill appearing and cooperative *Routine HEENT Exam Head: Present normocephalic Eye: Present EOMI and PERRL ENT: Present mucous membranes moist *Routine Neck Exam Neck: Present supple; Absent lymphadenopathy Routine Chest/Breast/Axilla Exam Chest wall: Present pacemaker Comments: Healing pocket for pacemaker right upper chest *Routine Respiratory Exam Respiratory: Present CTA bilaterally; Absent rhonchi, wheezes or crackles *Routine Cardiovascular Exam Cardiovascular: Present RRR and irregular rhythm *Routine Abdominal Exam Abdominal: Present soft and normoactive bowel sounds; Absent tenderness *Routine Rectal Exam Patient deferred: visual exam *Routine Exam Patient deferred: external exam *Routine Extremities Exam Extremities: Absent cyanosis, clubbing or edema *Routine Skin Exam Skin: Present warm; Absent rash *Routine Neurological Exam Neurological: Present alert and moving all extremities; Absent altered mental status Comments: Oriented to self and place. At baseline mentation Results Data Completed and Pending Labs on day of discharge: Labs from last 24 hours 05/13/24 05/13/24 05/12/24 06:17 05:30 17:26 WBC 5.0 RBC 3.32 L Hgb 9.3 L Hct 30.4 L MCV 91.5 MCH 28.1 MCHC 30.7 L RDW 17.2 Plt Count 149 MPV 9.7 Neut % (Auto) 65.7 Lymph % (Auto) 27.3 [place] % (Auto) 5.1 Eos % (Auto) 1.5 Baso % (Auto) 0.3 Neut # (Auto) 3.3 Lymph # (Auto) 1.4 [place] # (Auto) 0.3 Eos # (Auto) 0.1 Baso # (Auto) 0.0 PT INR APTT Sodium 132 L Potassium 4.5 Chloride 108 H Carbon Dioxide 19 L Anion Gap 9.5 BUN 16 Creatinine 1.10 H Estimated Creat Clear 37 Estimated GFR 47 L Est GFR ( Amer) 57 L Glucose 169 H POC Glucose 185 H 118 H Calcium 8.1 L Magnesium 2.0 05/12/24 05/12/24 11:47 11:14 WBC RBC Hgb Hct MCV MCH MCHC RDW Plt Count MPV Neut % (Auto) Lymph % (Auto) [place] % (Auto) Eos % (Auto) Baso % (Auto) Neut # (Auto) Lymph # (Auto) [place] # (Auto) Eos # (Auto) Baso # (Auto) PT 10.5 INR 0.93 APTT 45.3 H Sodium Potassium Chloride Carbon Dioxide Anion Gap BUN Creatinine Estimated Creat Clear Estimated GFR Est GFR ( Amer) Glucose POC Glucose 130 H Calcium Magnesium DS: Diagnosis Discharge Diagnosis (1) Atrial flutter: Status: Acute Code(s): I48.92 - Unspecified atrial flutter (2) Pre-syncope: Status: Acute Code(s): R55 - Syncope and collapse (3) Adverse effects of medication: Status: Acute Code(s): T50.905A - Adverse effect of unspecified drugs, medicaments and biological substances, initial encounter (4) Hypotension: Status: Acute Code(s): I95.9 - Hypotension, unspecified Qualifiers: Hypotension type: hypotension due to drug Qualified Code(s): I95.2 - Hypotension due to drugs (5) Hypertension: Status: Acute Code(s): I10 - Essential (primary) hypertension Qualifiers: Hypertension type: primary hypertension Qualified Code(s): I10 - Essential (primary) hypertension (6) Dizziness: Status: Resolved Code(s): R42 - Dizziness and giddiness (7) Asystole: Status: Acute Code(s): I46.9 - Cardiac arrest, cause unspecified (8) Symptomatic bradycardia: Status: Acute Code(s): R00.1 - Bradycardia, unspecified (9) Dementia: Status: Acute Code(s): F03.90 - Unspecified dementia, unspecified severity, without behavioral disturbance, psychotic disturbance, mood disturbance, and anxiety Qualifiers: Dementia behavioral or psychological symptom: unspecified whether behavioral, psychotic, or mood disturbance or anxiety Dementia severity: unspecified severity Dementia type: unspecified type Qualified Code(s): F03.90 - Unspecified dementia, unspecified severity, without behavioral disturbance, psychotic disturbance, mood disturbance, and anxiety Meds Home Medications and Allergies Home Medications ?Medication ?Instructions ?Recorded ?Confirmed ?Type clopidogrel 75 mg tablet 75 mg PO DAILY 04/21/21 05/08/24 History linagliptin 5 mg tablet (Tradjenta) 5 mg PO DAILY 08/15/22 05/08/24 History amitriptyline 50 mg tablet 50 mg PO HS 05/03/24 05/08/24 History furosemide 20 mg tablet 20 mg PO DAILY 05/03/24 05/08/24 History hydrocortisone 2.5 % topical cream 1 applic topical BID 05/04/24 05/08/24 History with perineal applicator latanoprost 0.005 % eye drops 1 drp Eye-Both HS 05/04/24 05/08/24 History aspirin 81 mg tablet,delayed 81 mg PO DAILY 30 days #30 tabs 05/05/24 05/08/24 Rx release irbesartan 150 mg tablet 150 mg PO DAILY 30 days #30 tabs 05/05/24 05/08/24 Rx atorvastatin 40 mg tablet 40 mg PO HS 30 days #30 tabs 05/13/24 Rx digoxin 250 mcg (0.25 mg) tablet 250 mcg PO DAILY 30 days #30 tabs 05/13/24 Rx oxycodone-acetaminophen 5 mg-325 1 tab PO Q8HP PRN Moderate Pain 05/13/24 Rx mg tablet (4-6) 3 days #9 tabs rivaroxaban 15 mg tablet (Xarelto) 15 mg PO QPMWITHMEAL 30 days #30 05/13/24 Rx tabs New Prescriptions to Start Prescriptions: Tray Rodney digoxin Tray Ovalle oxycodone-acetaminophen Tray Ovalle rivaroxaban [Xarelto] Tray Ovalle Allergies Allergy/AdvReac Type Severity Reaction Status Date / Time Sulfa (Sulfonamide Allergy Unknown Unknown Verified 05/08/24 15:10 Antibiotics) allergy reaction Penicillins Allergy Other Verified 05/08/24 15:10 Discharge Plan Disposition Patient Disposition: Home Health Service Condition: Fair Discharge Order Discharge Orders: Discharge Order (Routine); Ordered 05/13/24 Ordered By: Tray Ovalle Follow up Plan Follow up with: Aria Vera APRN [Nurse Practitioner] - 05/18/24 11:15 am Cate Frederick [Primary Care Provider] - 05/25/24 3:30 pm Prescriptions/Medication Reconciliation: New atorvastatin 40 mg Tablet 40 mg PO HS 30 Days Qty: 30 0RF digoxin 250 mcg (0.25 mg) Tablet 250 mcg PO DAILY 30 Days Qty: 30 0RF Xarelto 15 mg Tablet 15 mg PO QPMWITHMEAL 30 Days Qty: 30 0RF oxycodone-acetaminophen 5-325 mg Tablet 1 tab PO Q8HP PRN (Reason: Moderate Pain (4-6)) 3 Days Qty: 9 0RF Continued Tradjenta 5 mg tablet 5 mg PO DAILY clopidogrel 75 MG tablet 75 mg PO DAILY amitriptyline 50 mg tablet 50 mg PO HS latanoprost 0.005 % drops 1 drp Eye-Both HS hydrocortisone 2.5 % cream with perineal applicator 1 applic topical BID aspirin 81 mg Tablet,Delayed Release (Dr/Ec) 81 mg PO DAILY 30 Days Qty: 30 0RF Held furosemide 20 mg tablet 20 mg PO DAILY Hold Instructions: pending cardiology follow-up irbesartan 150 mg Tablet 150 mg PO DAILY 30 Days Qty: 30 0RF Hold Instructions: pending follow-up with cardiology and re-assessment of BP Discontinued donepezil 5 mg tablet 5 mg PO HS atorvastatin 10 mg tablet 10 mg PO HS rivastigmine [Exelon Patch] 4.6 mg/24 hour patch 24 hour 4.6 mg transdermal DAILY Patient Comments: Apply 1 patch every day by transdermal route for 30 days, for MEMORY. cefdinir 300 mg capsule 300 mg PO BID 5 Days Qty: 10 0RF Other Ambulatory Orders: Complete Blood Count Auto Diff (Routine) Timeframe: 3 Days Facility: [facility] - Location: Laboratory Ordered By: Tray Ovalle Problem Reconciliation Problems Reviewed?: Yes Patient Discharge Instructions ACTIVITY: Continue current activity DIET: continue same diet Patient Instructions: DI for Syncope in Adults (Fainting), DI for Atrial Flutter, DI for Pacemaker Insertion, DI for Surgical Site Infection Print Language: [place] Providers Primary Care Provider: Cate Frederick Admit Provider: Red Elaine Attending Provider: Red Elaine
[2024-05-13] MEDS: AMIODARONE 200MG TABLET 200 MG PO (08:53)
[2024-05-13] MEDS: ASPIRIN EC 81MG TABLET 81 MG PO (08:53)
[2024-05-13] MEDS: CLOPIDOGREL 75MG TAB 75 MG PO (08:53)
[2024-05-13] MEDS: OXYCODONE 5MG W/APAP 325MG TABLET 1 EACH PO ×2 (08:57→15:57)
[2024-05-13 09:26] LABS: Occult Blood,Stool Negative (Negative)
--- NOTE | 2024-05-13 09:37 | P.PN_ITS ---
Subjective Subjective Date: 05/13/24 Time: 08:00 Principal diagnosis: New onset atrial flutter with tachybradycardia syndrome, presyncope Interval history: Patient doing well this morning. Denies complaints. Is status post pacemaker placement. Patient remains in A-fib, rate controlled while resting increases with standing. Hypotensive this morning with systolic in the 90s. Morning labs reviewed. Exam Data for Last 24 hours Vital signs and Labs for Last 24 Hours: Temp Pulse Resp BP Pulse Ox O2 Del Method O2 Flow Rate 98.2 F 90 17 90/54 L 96 Room Air 2 05/13/24 04:00 05/13/24 08:00 05/13/24 06:00 05/13/24 06:00 05/13/24 06:00 05/13/24 08:00 05/09/24 16:00 Laboratory Results - last 24 hr 05/12/24 11:14: PT 10.5, INR 0.93, APTT 45.3 H 05/12/24 11:47: POC Glucose 130 H 05/12/24 17:26: POC Glucose 118 H 05/13/24 05:30: WBC 5.0, RBC 3.32 L, Hgb 9.3 L, Hct 30.4 L, MCV 91.5, MCH 28.1, MCHC 30.7 L, RDW 17.2, Plt Count 149, MPV 9.7, Neut % (Auto) 65.7, Lymph % (Auto) 27.3, [place] % (Auto) 5.1, Eos % (Auto) 1.5, Baso % (Auto) 0.3, Neut # (Auto) 3.3, Lymph # (Auto) 1.4, [place] # (Auto) 0.3, Eos # (Auto) 0.1, Baso # (Auto) 0.0, Sodium 132 L, Potassium 4.5, Chloride 108 H, Carbon Dioxide 19 L, Anion Gap 9.5, BUN 16, Creatinine 1.10 H, Estimated Creat Clear 37, Estimated GFR 47 L, Est GFR ( Amer) 57 L, Glucose 169 H, Calcium 8.1 L, Magnesium 2.0 05/13/24 06:17: POC Glucose 185 H 05/13/24 09:20: Stool Occult Blood Negative I & O for Last 24 hours: Intake & Output 05/10/24 05/11/24 05/12/24 05/13/24 23:59 23:59 23:59 23:59 Intake Total 615 / 615 540 / 806 386 / 626 620 / 620 Output Total 600 / 600 0 / 600 600 / 600 Balance 540 / 206 - / 620 / 620 Weight 133 lb 6.392 oz 133 lb 6.075 oz 133 lb 6.075 oz 134 lb 0.657 oz Constitutional Constitutional: no acute distress *Routine Respiratory Exam Respiratory: Present CTA bilaterally and symmetric chest movement *Routine Cardiovascular Exam Cardiovascular: Present Normal S1, Normal S2 and irregular rhythm *Routine Abdominal Exam Abdominal: Present soft and normoactive bowel sounds; Absent tenderness *Routine Extremities Exam Extremities: Present full ROM and normal capillary refill; Absent edema *Routine Skin Exam Skin: Present intact, dry and warm Detailed Neck Exam: Thyroids Thyroid: Absent bruit Progress Note: A&P Assessment and plan (1) Atrial flutter: Status: Acute (2) Pre-syncope: Status: Acute (3) Adverse effects of medication: Status: Acute (4) Hypotension: Status: Acute (5) Hypertension: Status: Acute (6) Dizziness: Status: Resolved (7) Asystole: Status: Acute (8) Symptomatic bradycardia: Status: Acute (9) Dementia: Status: Acute Assessment and Plan Assessment and Plan for All Diagnoses:: Presyncope, dizziness Hypotension Tachybrady syndrome New onset afib with RVR Transient pause/asystole with syncope Pacemaker placed 05/12/2024 Status post pacemaker placement yesterday. Remains in A-fib New onset Atrial flutter/fib Remains in afib, rate controlled with sitting but tachy with standing Resume xarelto 15mg po daily Stop amiodarone. 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 There is a filling defect/thrombus that extends from the left subclavian vein into the left internal jugular vein, age- indeterminate. CV summary 05/13/2024: Patient is CV stable for discharge after loaded with digoxin. Please continue digoxin 0.25 mg daily for rate control along with medications listed below. Patient will need to follow-up in cardiology office on Saturday for recheck. Please have patient get labs drawn prior to office visit including digoxin level. I have placed outpatient labs for Saturday. Cardiac meds: Plavix 75 mg daily Atorvastatin 40 mg p.o. daily Xarelto 15mg po daily Protonix 40 mg p.o. daily Digoxin .25mg p.o daily BB- on hold due to hypotension hold BRENDA/arbs due to hypotension
[2024-05-13] MEDS: PANTOPRAZOLE 40MG TABLET 40 MG PO (11:00)
--- NOTE | 2024-05-13 11:59 | SW/DCPLANNER ---
Addendum entered by Ivelisse Bland 05/14/24 12:29: Lola raman/ Jorge stated that home health services will start over the weekend for this patient. Original Note: I spoke w/ patient and her family regarding plans once medically stable for discharge. MD has ordered for patient to return home w/ home health services. Patient is agreeable to home health and does not have preferred agency. Home health services will be set up at time of discharge. Per MD patient could discharge later today or tomorrow morning.
[2024-05-13] MEDS: DIGOXIN 0.25MG/ML 2ML AMPUL 250 MCG IV (12:22)
[2024-05-13 14:20] LABS: Hemoglobin 9.1 g/dL (12.2-16.2)
[2024-05-14 02:37] LABS: POC Glucose,Bedside 180 (70-110)
[2024-05-14 02:37] LABS: POC Glucose,Bedside 141 (70-110)
--- NOTE | 2024-05-15 13:14 | SW/DCPLANNER ---
Hospital follow up phone called attempted x2: no answer.
== END 2024-05-13 16:03 | disposition home health service (06) | DRG 243 ==
LOC: ER 14:04 → 2ND 14:20
PROVIDERS: Internal Medicine; Internal Medicine Adolescent Medicine; Internal Medicine Cardiovascular Disease; Nurse Practitioner; Admitting Provider Student in an Organized Health Care Education/Training Program; Emergency Provider Emergency Medicine; PCP Nurse Practitioner Family; Visit Provider Student in an Organized Health Care Education/Training Program
DX: I48.92 Unspecified atrial flutter; I50.30 Unspecified diastolic (congestive) heart failure; I95.2 Hypotension due to drugs; I11.0 Hypertensive heart disease with heart failure; I71.23 Aneurysm of the descending thoracic aorta, without rupture; E11.9 Type 2 diabetes mellitus without complications; E78.2 Mixed hyperlipidemia; Z95.5 Presence of coronary angioplasty implant and graft; I25.118 Atherosclerotic heart disease of native coronary artery with other forms of angina pectoris; I49.5 Sick sinus syndrome; I77.1 Stricture of artery; F17.210 Nicotine dependence, cigarettes, uncomplicated; Z79.02 Long term (current) use of antithrombotics/antiplatelets; T50.905A Adverse effect of unspecified drugs, medicaments and biological substances, initial encounter; Z79.899 Other long term (current) drug therapy
CPT/HCPCS: 33208; 36415; 70450; 71045; 80048; 80053; 82272; 82962; 83735; 84439; 84443; 84484; 85014; 85018; 85025; 85610; 85730; 86803; 87389; 93005; 93306; 99152; 99153; 99291; C1785; C1898; G0328; J0282; J1160; J1200; J1644; J1650; J2250; J3010; J7030; J7060

== ENCOUNTER 2024-05-18 12:10 | Outpatient (CLI) | payer MEDICARE, SELFPAY ==
[2024-05-18 12:28] LABS: Basophils % 0.6 % (0.1-2.0); Hematocrit 30.1 % (37.0-47.0); Hemoglobin 9.3 g/dL (12.2-16.2); Lymphocytes % 24.3 % (10-50); Mean Corpuscular HGB Conc 30.8 g/dL (31.8-35.4); Mean Corpuscular Hemoglobin 28.5 pg (27.0-31.2); Mean Corpuscular Volume 92.5 fl (81-99); Mean Platelet Volume 11.1 fl (7.4-10.4); Monocytes # 0.2 K/mm3 (0.1-1.0); Monocytes % 3.9 % (1.7-9.3); Neutrophils # 2.9 K/mm3 (1.8-7.8); Neutrophils % 70.2 % (37.0-80.0); Platelet Count 176 K/mm3 (142-424); Red Blood Count 3.25 M/mm3 (4.20-5.40); Red Cell Distribution Width 17.8 % (11.5-17.5); White Blood Count 4.1 K/mm3 (4.8-10.8)
[2024-05-18 13:22] LABS: Anion Gap 8.3 mEq/L (5-15); Blood Urea Nitrogen 18 mg/dl (7-17); Calcium 8.7 mg/dl (8.4-10.2); Carbon Dioxide 23 mmol/L (22.0-30.0); Chloride 108 mmol/L (98-107); Estimated Glomerular Filt Rate 43 ml/min (>60); GFR (African American) 52 ML/MIN (>60); Glucose 156 mg/dl (74-100); Potassium 4.3 mmoL/L (3.5-5.1); Sodium 135 mmol/L (136-145)
== END 2024-05-18 23:59 | disposition home or self-care (01) ==
LOC: LAB 12:14
PROVIDERS: PCP Nurse Practitioner Family; Visit Provider Nurse Practitioner
DX: T46.0X1A Poisoning by cardiac-stimulant glycosides and drugs of similar action, accidental (unintentional), initial encounter (principal); I25.118 Atherosclerotic heart disease of native coronary artery with other forms of angina pectoris; D64.9 Anemia, unspecified
CPT/HCPCS: 36415; 80048; 80162; 85025

== ENCOUNTER 2024-05-26 13:04 | Outpatient (CLI) | payer MEDICARE, SELFPAY ==
[2024-05-26 13:24] LABS: Basophils % 0.8 % (0.1-2.0); Eosinophils % 0.9 % (0.1-12.0); Hemoglobin 9.6 g/dL (12.2-16.2); Lymphocytes # 1.2 K/mm3 (0.7-4.5); Lymphocytes % 24.3 % (10-50); Mean Corpuscular Hemoglobin 28.5 pg (27.0-31.2); Mean Corpuscular Volume 89.2 fl (81-99); Mean Platelet Volume 10.4 fl (7.4-10.4); Monocytes # 0.3 K/mm3 (0.1-1.0); Monocytes % 6.8 % (1.7-9.3); Neutrophils # 3.3 K/mm3 (1.8-7.8); Neutrophils % 67.2 % (37.0-80.0); Platelet Count 182 K/mm3 (142-424); Red Blood Count 3.36 M/mm3 (4.20-5.40); Red Cell Distribution Width 18.2 % (11.5-17.5); White Blood Count 4.9 K/mm3 (4.8-10.8)
[2024-05-26 15:46] LABS: Anion Gap 12.3 mEq/L (5-15); Blood Urea Nitrogen 15 mg/dl (7-17); Calcium 8.6 mg/dl (8.4-10.2); Carbon Dioxide 23 mmol/L (22.0-30.0); Chloride 106 mmol/L (98-107); Estimated Glomerular Filt Rate 47 ml/min (>60); GFR (African American) 57 ML/MIN (>60); Glucose 202 mg/dl (74-100); Magnesium 2.1 mg/dl (1.6-2.3); Potassium 4.3 mmoL/L (3.5-5.1); Sodium 137 mmol/L (136-145)
[2024-05-26 16:01] LABS: Free T4 (Free Thyroxine) 1.34 ng/dl (0.78-2.19)
[2024-05-26 16:18] LABS: Thyroid Stimulating Hormone 3.71 uIU/mL (0.465-4.68)
== END 2024-05-26 23:59 | disposition home or self-care (01) ==
LOC: LAB 13:06
PROVIDERS: PCP Nurse Practitioner Family; Visit Provider Nurse Practitioner
DX: R53.1 Weakness (principal); D64.9 Anemia, unspecified
CPT/HCPCS: 36415; 80048; 80162; 83735; 84439; 84443; 85025

== ENCOUNTER 2024-05-27 08:57 | Day surgery (SDC) | payer MEDICARE, SELFPAY ==
[2024-05-26 16:46] VITALS: BMI 24.7
--- NOTE | 2024-05-27 09:19 | CA_ITS ---
APPROVED REPORT EXAM: Comprehensive 2D, Doppler, and color-flow Echocardiogram Interior Horticulturist: Joanne CampbellERIKA Ht: 5 ft 2 in Wt: 132lbs BSA: 1.60 BP: 134/89 mmHg Indications: A-FIB WITH CARDIOVERSION,PACER,ABN EKG,COPD,DM,HTN.HLD,SMOKER,SOA Procedure After obtaining informed consent, patient underwent transesophageal echo in the [facility]. Type of Sedation : MAC Sedation was administered by Kyree MaganaNNomi Sedation start time: 11:45 Case end Time: 12:10 Transesophageal probe was inserted and advanced into esophagus without difficulty by Dr. Bruno Mao. The EDENILSON was performed without complications. Synchronized Cardioversion acheived with 150 Joules after 1 attempt(s). Rhythm following Synchronized Cardioversion: Normal Sinus Rhythm Throughout the procedure, the blood pressure, pulse oximetry, cardiac rhythm, and rate were monitored. The patient tolerated the procedure without adverse effects. Recovery from conscious sedation was uneventful and vital signs were stable. Left Ventricle The left ventricle is normal size. The left ventricular systolic function is normal. The left ventricular ejection fraction is within the normal range. There is increased LV wall thickness. The distal inferoseptal LV wall appears hypokinetic. LVEF is 55%. Right Ventricle The right ventricle is mildly dilated. The right ventricular systolic function is normal. A device lead is present in the right ventricle. Atria The left atrium is dilated. No thrombus is visualized in the left atrium or appendage. The right atrium size is normal. A device lead is present in the right atrium. Interatrial septum is intact without evidence of ASD or PFO. Aortic Valve The aortic valve is mildly thickened. Mild aortic stenosis. FLEX by 2D planimetry is 1.6 cm???. Trace aortic regurgitation. Mitral Valve The mitral valve leaflets are mildly thickened. Mild mitral regurgitation. No evidence of mitral valve stenosis. Tricuspid Valve The tricuspid valve leaflets are thin and pliable. Mild tricuspid regurgitation. RVSP is 12 mmHg plus RA pressure. Pulmonic Valve The pulmonary valve is normal in structure. Trace pulmonic regurgitation. Great Vessels The aortic root is normal in size. The ascending aorta is normal in size. Pericardium There is no pericardial effusion. Other Information Study Quality: Fair Conclusion Normal biventricular systolic function. Mild RV dilation. Mild LA dilation. Mild MR, mild TR. Once EDENILSON demonstrated no evidence of LA or RAJ thrombus, the patient underwent DCCV with 150 J, after which she converted from A-fib/RVR (HR 110s) to NSR and V-paced rhythm (HR 60 bpm). Her post-procedural course was uncomplicated. She was eventually discharged same day in stable condition. Electronically signed by : Triny Mao MD 05/28/2024 01:30:26
[2024-05-27 09:40] VITALS: BP 140/70; PULSE 121; RESP 20; TEMP 37.2; O2SAT 99
--- NOTE | 2024-05-27 09:41 | ECG_ITS ---
APPROVED REPORT Exam: Resting ECG HR:93 bpm ECG Measurements Heart Rate 93 AXES QRSd 88 QRS -22 QT 332 T 159 QTc 383 Conclusion ATRIAL FIBRILLATION VOLTAGE CRITERIA FOR LVH [MEETS CRITERIA IN ONE OF: R(aVL), S(V1), R(V5), R(V5/V6)+S(V1)] POSSIBLE ANTEROSEPTAL MYOCARDIAL INFARCTION , PROBABLY OLD [30 ms Q WAVE IN V1-V4] ST DEVIATION AND MODERATE T-WAVE ABNORMALITY, CONSIDER LATERAL ISCHEMIA [-0.1+ mV T-WAVE IN I/aVL/V5/V6] ABNORMAL ECG UNCONFIRMED REPORT Electronically signed by : Rick West MD 05/29/2024 09:17:23
[2024-05-27] MEDS: LACTATED RINGERS 1000ML 1,000 ML 100 ML IV (09:57)
--- NOTE | 2024-05-27 10:18 | P.PNANES_ITS ---
[facility] Disclaimer: The information contained in this section may have been updated after the patient was seen, as this information can be updated by other users. Medical History History of cardiac pacemaker in situ Implant APR 2024 Hypotension Atrial flutter Pre-syncope Descending thoracic aortic aneurysm Abnormal echocardiogram Diabetes mellitus Symptomatic bradycardia Dizziness Shortness of Breath Atypical angina COPD (chronic obstructive pulmonary disease) Hyperlipidemia Hypertension Aortic heart murmur Coronary artery disease Abnormal electrocardiogram [ECG] [EKG] Encounter for pre-operative cardiovascular clearance Surgical History History of coronary artery stent placement Family History Father Family history of myocardial infarction Social History (Updated 05/27/24 @ 09:55 by Karla Alvarez RN) Smoking Status: Current every day smoker tobacco type: cigarettes packs per day: 1 second hand exposure: Yes alcohol intake: never substance use type: denies use current occupational status: retired Travel in the last 8 weeks: None household members: spouse housing: house current occupation: [employer] current occupational exposures/hazards: No caffeine: No [facility] Anesthesia Checklist Patient Identification Patient Identification: Arm Band Structural Data Admitted From: Home Planned Operative Procedure/s: EDENILSON/Cardioversion Consent for Planned Operative Procedure(s) Verified: Yes Verified Documents: Surgical Consent and History and Physical NPO Status Verified Time NPO: 00:00 Additional verifications Anesthesia Reactions: No Hx Blood Transfusions: No Blood Transfusion Reaction: No Airway Assessment Mallampati Score:: Class II C-Spine Mobility Assessed: Yes TMJ Mobility Assessed: Yes Dentition: Good Dentition Neurological Assessment Level of Consciousness: Awake, Alert and Appropriate Anesthesia Plan Anesthesia Risk discussed: Yes Anesthesia Plan: Verified ASA Class: III Anesthesia Type: MAC
[2024-05-27 10:28] LABS: Chloride 103 mmol/L (98-107); Sodium 137 mmol/L (136-145)
[2024-05-27 10:32] LABS: Blood Urea Nitrogen 18 mg/dl (7-17); Carbon Dioxide 24 mmol/L (22.0-30.0); Creatinine Clearance Estimated 40 mL/min (50-200); Estimated Glomerular Filt Rate 60 ml/min (>60); GFR (African American) 72 ML/MIN (>60); Glucose 187 mg/dl (74-100)
[2024-05-27 10:38] LABS: Activated Partial Thrombo Time 29.5 seconds (22.8-30.6); INR 1.16 (0.9-1.1); Prothrombin Time 12.8 seconds (10.1-12.5)
[2024-05-27 10:43] LABS: POC Glucose,Bedside 183 (70-110)
[2024-05-27 11:16] LABS: Basophils % 0.8 % (0.1-2.0); Eosinophils # 0.1 K/mm3 (0.0-0.4); Eosinophils % 1.1 % (0.1-12.0); Hematocrit 30.4 % (37.0-47.0); Hemoglobin 9.6 g/dL (12.2-16.2); Lymphocytes % 22.5 % (10-50); Mean Corpuscular HGB Conc 31.5 g/dL (31.8-35.4); Mean Corpuscular Hemoglobin 28.3 pg (27.0-31.2); Mean Corpuscular Volume 89.7 fl (81-99); Mean Platelet Volume 9.9 fl (7.4-10.4); Monocytes # 0.3 K/mm3 (0.1-1.0); Monocytes % 6.9 % (1.7-9.3); Neutrophils # 3.2 K/mm3 (1.8-7.8); Neutrophils % 68.7 % (37.0-80.0); Platelet Count 178 K/mm3 (142-424); Red Blood Count 3.39 M/mm3 (4.20-5.40); White Blood Count 4.6 K/mm3 (4.8-10.8)
[2024-05-27 12:00] VITALS: BP 93/52; PULSE 61; RESP 18; TEMP 36.6; O2SAT 99
[2024-05-27 12:06] VITALS: BP 104/52; PULSE 60; RESP 18; O2SAT 99
--- NOTE | 2024-05-27 12:07 | ECG_ITS ---
APPROVED REPORT Exam: Resting ECG HR:63 bpm ECG Measurements Heart Rate 63 AXES [place] 212 P 253 QRSd 86 QRS -28 QT 367 T 256 QTc 375 Conclusion ELECTRONIC ATRIAL PACEMAKER SEPTAL MYOCARDIAL INFARCTION , OF INDETERMINATE AGE [40+ ms Q WAVE IN V1/V2] MODERATE T-WAVE ABNORMALITY, CONSIDER LATERAL ISCHEMIA [-0.1+ mV T-WAVE IN I/aVL/V5/V6] ABNORMAL ECG UNCONFIRMED REPORT Electronically signed by : Rick West MD 05/29/2024 09:17:01
[2024-05-27 12:20] VITALS: BP 111/56; PULSE 59; RESP 18; O2SAT 98
[2024-05-27 12:30] VITALS: BP 126/58; PULSE 61; RESP 18; O2SAT 97
== END 2024-05-27 12:30 | disposition home or self-care (01) ==
PROVIDERS: PCP Nurse Practitioner Family; Visit Provider Internal Medicine
DX: I48.92 Unspecified atrial flutter (principal); Z79.899 Other long term (current) drug therapy; I49.5 Sick sinus syndrome; Z98.890 Other specified postprocedural states; Z95.0 Presence of cardiac pacemaker
CPT/HCPCS: 80048; 82962; 85025; 85610; 85730; 92960; 93005; 93270; 93312; 93319; J7120

== ENCOUNTER 2024-06-16 14:48 | Outpatient (CLI) | payer MEDICARE, SELFPAY ==
--- NOTE | 2024-06-16 14:49 | CA_ITS ---
APPROVED REPORT EXAM: Limited 2D Echocardiogram Punchboard Assembler: Roxann Moreira CRT Ht: 5 ft 3 in Wt: 133lbs BSA: 1.63 BP: 85/63 mmHg Indications: limited echo for gradients M-Mode Dimensions RVDd 2.53 cm (0.9-2.6) LA Diam 4.22 cm (1.9-4.0) LVDd 4.31 cm (3.5-5.7) LVDs 2.42 cm (3.5-5.7) IVSd 1.46 cm (0.6-1.1) PWd 0.82 cm (0.6-1.1) EF (Teich) 75.30% FS 43.90% EDV (Teich) 83.50 mL ESV (Teich) 20.60 mL Aortic Valve FLEX Index 0.59 cm2/m2 AoV Peak Ron. 259.0 (50-130 cm/s) AO Peak GR. 26.80 mmHg AO Mean GR. 12.60 (<5 mmHg) AO VTI 49.6 (18-25 cm) FLEX (VTI) 0.98 (2.5-4.5 cm2) Other Information Study Quality: Fair Conclusion This is a limited TTE to evaluate for AV gradients. Limited windows were obtained. The aortic valve is mildly thickened. Moderate aortic stenosis is present. Mean AV gradient 13 mmHg. Max AV gradient 27 mmHg. Peak velocity 2.7 m/s. FLEX by continuity equation is 1.3 cm???. Of note, the patient's blood pressure at the time of image acquisition was 85/63 mmHg. Electronically signed by : Triny Mao MD 06/21/2024 02:17:46
== END 2024-06-16 23:59 | disposition home or self-care (01) ==
LOC: RT 14:49
PROVIDERS: PCP Nurse Practitioner Family; Visit Provider Internal Medicine
DX: I35.0 Nonrheumatic aortic (valve) stenosis (principal); R06.09 Other forms of dyspnea
CPT/HCPCS: 93308

== ENCOUNTER 2024-08-05 14:08 | Outpatient (CLI) | payer MEDICARE, SELFPAY ==
[2024-08-05 14:35] LABS: Hematocrit 32.4 % (37.0-47.0); Hemoglobin 9.2 g/dL (12.2-16.2); Mean Corpuscular HGB Conc 28.4 g/dL (31.8-35.4); Mean Corpuscular Hemoglobin 23.2 pg (27.0-31.2); Mean Corpuscular Volume 81.6 fl (81-99); Mean Platelet Volume 12.2 fl (7.4-10.4); Platelet Count 176 K/mm3 (142-424); Red Blood Count 3.97 M/mm3 (4.20-5.40); White Blood Count 6.8 K/mm3 (4.8-10.8)
[2024-08-05 14:36] LABS: Basophils % 0.6 % (0.1-2.0); Eosinophils # 0.1 K/mm3 (0.0-0.4); Eosinophils % 0.9 % (0.1-12.0); Lymphocytes # 1.2 K/mm3 (0.7-4.5); Lymphocytes % 18.3 % (10-50); Monocytes # 0.5 K/mm3 (0.1-1.0); Monocytes % 7.4 % (1.7-9.3); Neutrophils # 4.9 K/mm3 (1.8-7.8); Neutrophils % 72.1 % (37.0-80.0)
[2024-08-05 15:20] LABS: Albumin Level 3.9 g/dl (3.5-5.0); Chloride 106 mmol/L (98-107)
[2024-08-05 15:21] LABS: Sodium 132 mmol/L (136-145)
[2024-08-05 15:23] LABS: Alanine Aminotransferase 25 U/L (12-78); Aspartate Amino Transferase 46 U/L (14-36); Bilirubin,Unconjugated 0.2 mg/dL (0.0-1.1); Blood Urea Nitrogen 11 mg/dl (7-17); Carbon Dioxide 16 mmol/L (22.0-30.0); Estimated Glomerular Filt Rate 60 ml/min (>60); GFR (African American) 72 ML/MIN (>60); Total Protein,Serum 6.8 g/dl (6.3-8.2)
[2024-08-05 15:24] LABS: Alkaline Phosphatase 123 U/L (38-126); Bilirubin,Direct 0.5 mg/dl (0.0-0.4); Bilirubin,Indirect 0.1 mg/dL (0.0-0.9); Bilirubin,Total 0.6 mg/dl (0.2-1.3); Calcium 8.4 mg/dl (8.4-10.2); Chol/HDL Ratio 2.7 (1-3.5); Cholesterol 93 mg/dl (140-200); Glucose 372 mg/dl (74-100); HDL Cholesterol 35 mg/dl (40-60); Magnesium 2.1 mg/dl (1.6-2.3); Triglycerides 214 mg/dl (30-150); VLDL Cholesterol 43 mg/dL (0-40)
[2024-08-05 19:50] LABS: Free T4 (Free Thyroxine) 1.26 ng/dl (0.78-2.19)
[2024-08-05 21:03] LABS: Direct LDL Cholesterol < 30.00 mg/dL (100-129)
== END 2024-08-05 23:59 | disposition home or self-care (01) ==
LOC: LAB 14:08
PROVIDERS: PCP Nurse Practitioner Family; Visit Provider Internal Medicine
DX: R06.09 Other forms of dyspnea (principal); Z95.0 Presence of cardiac pacemaker; I48.92 Unspecified atrial flutter; I71.23 Aneurysm of the descending thoracic aorta, without rupture; I10 Essential (primary) hypertension; E11.9 Type 2 diabetes mellitus without complications; E78.2 Mixed hyperlipidemia; I50.82 Biventricular heart failure; I25.118 Atherosclerotic heart disease of native coronary artery with other forms of angina pectoris; R94.31 Abnormal electrocardiogram [ECG] [EKG]; Z51.81 Encounter for therapeutic drug level monitoring; Z79.899 Other long term (current) drug therapy
CPT/HCPCS: 36415; 80048; 80061; 80076; 80162; 83735; 84439; 84443; 85025

== ENCOUNTER 2024-08-17 11:47 | Outpatient (CLI) | payer MEDICARE, SELFPAY ==
--- NOTE | 2024-08-17 | CA_ITS ---
APPROVED REPORT Exam: Pharmacologic Technologist: Patrizia Ca Ht: 5 ft 2 in Wt: 126 lbs BSA: 1.57 m2 HR: 60 bpm BP: 156/69 mmHg Rhythm: A paced with inferior STT abns/depression Medical History Medications: Amitriptyline, Atorvastatin, clopidogrel, xarelto, tradjenta Allergies: m Cardiac Risk Factors: HTN, Hyperlipidemia, Diabetes (non-insulin), FHX of CAD, Smoking Stress Test Details HR Resting HR: 60 bpm Max Heart Rate (APMHR): 136.330543 bpm Target HR (85% APMHR): 115.347822 bpm Recovery HR: 60 bpm BP Resting BP: 156.0/69.0 mmHg Recovery BP: 166.0/59.0 mmHg ECG Resting ECG: A paced with inferior STT abns/depression Stress ECG Conclusion During lexiscan pt experinced no CP. No arrhythmias noted. Baseline inferior ST depression with <1.5mm ST segment changes. Non diagnostic lexiscan stress test. Electronically signed by : Triny Mao MD 08/19/2024 20:26:34
--- NOTE | 2024-08-17 11:48 | NM_ITS ---
APPROVED REPORT Exam: Nuclear Stress Test Indication: soa..fatigue Patient Location: Outpatient Stress Tech: Chris GUPTA Tech:Tiara Owens, [place], RT (R)(N) Ht: 5 ft 2 in Wt: 135 lbs Bra Size: 34b HR: 60 bpm BP: 156/69 mmHg BSA: 1.62 m2 TID: 1.08 BMI: 24.6 History: soa..fatigue Procedure: Patient received 0.4 mg of intravenous Lexiscan, resting heart rate 60 bpm, resting blood pressure 156/69 mmHg, with Lexiscan maximum heart rate achieved was 60 bpm which is 85 % of the maximum predicted heart rate and blood pressure was 166/58 mmHg. With Lexiscan, patient denied any complaint of chest pain. The patient was not able to lay on her abdomen for prone images Cardiac Stress and Resting SPECT Images: Cardiac Stress and Resting SPECT images were obtained using technetium 99m Myoview 32.0 mCi stress and 10.66 mCi at rest. The patient could not lie on her abdomen. Therefore, prone stress imaging could not be performed. This may affect the diagnostic interpretation of the study findings. Resting and stress imaging in supine positions demonstrate a medium-sized, severe, fixed perfusion defect in the LV apex. Gated imaging demonstrates normal global LV systolic function. There is akinesis of the LV apex. LVEF is calculated at 52%. Conclusion: Medium-sized, severe, fixed perfusion defect in the LV apex. No evidence of reversible ischemia. Gated imaging demonstrates normal global LV systolic function. There is akinesis of the LV apex. LVEF is calculated at 52%. Electronically signed by : Triny Mao MD 08/18/2024 08:09:00
[2024-08-17] MEDS: SODIUM CHLORIDE 0.9% 10ML SYR (RAD ONLY) 10 ML IV ×2 (13:30)
[2024-08-17] MEDS: REGADENOSON 0.4MG/5ML SYRINGE 0.4 MG IV (13:30)
[2024-08-17] MEDS: ISOTOPE MYOVIEW (PER STUDY) 1 DOSE IV (13:31)
== END 2024-08-17 23:59 | disposition home or self-care (01) ==
LOC: RAD 11:48
PROVIDERS: PCP Nurse Practitioner Family; Visit Provider Internal Medicine
DX: I25.118 Atherosclerotic heart disease of native coronary artery with other forms of angina pectoris (principal); R06.09 Other forms of dyspnea; Z95.0 Presence of cardiac pacemaker; Z51.81 Encounter for therapeutic drug level monitoring; Z79.899 Other long term (current) drug therapy; R53.1 Weakness; I48.92 Unspecified atrial flutter; I71.23 Aneurysm of the descending thoracic aorta, without rupture; I10 Essential (primary) hypertension; E11.9 Type 2 diabetes mellitus without complications; E78.2 Mixed hyperlipidemia; R94.31 Abnormal electrocardiogram [ECG] [EKG]; I50.82 Biventricular heart failure
CPT/HCPCS: 78452; 93017; 93018; A9502; J2785

== ENCOUNTER 2024-08-31 17:00 | Outpatient (CLI) | payer MEDICARE, SELFPAY ==
[2024-08-31 22:44] LABS: Occult Blood,Stool Negative (Negative)
== END 2024-08-31 23:59 | disposition home or self-care (01) ==
LOC: LAB.DROPOF 17:01
PROVIDERS: PCP Nurse Practitioner; Visit Provider Nurse Practitioner
DX: D64.9 Anemia, unspecified (principal)
CPT/HCPCS: 82272; G0328

== ENCOUNTER 2024-10-01 14:28 | Outpatient (CLI) | payer MEDICARE, SELFPAY ==
[2024-10-01 15:43] LABS: Basophils % 0.4 % (0.1-2.0); Eosinophils % 0.4 % (0.1-12.0); Hematocrit 34.2 % (37.0-47.0); Hemoglobin 9.9 g/dL (12.2-16.2); Lymphocytes # 1.3 K/mm3 (0.7-4.5); Lymphocytes % 17.1 % (10-50); Mean Corpuscular HGB Conc 28.9 g/dL (31.8-35.4); Mean Corpuscular Hemoglobin 22.1 pg (27.0-31.2); Mean Corpuscular Volume 76.5 fl (81-99); Mean Platelet Volume 11.7 fl (7.4-10.4); Monocytes # 0.4 K/mm3 (0.1-1.0); Monocytes % 5.3 % (1.7-9.3); Neutrophils # 5.9 K/mm3 (1.8-7.8); Neutrophils % 76.2 % (37.0-80.0); Platelet Count 205 K/mm3 (142-424); Red Blood Count 4.47 M/mm3 (4.20-5.40); Red Cell Distribution Width 19.3 % (11.5-17.5); White Blood Count 7.7 K/mm3 (4.8-10.8)
[2024-10-01 16:44] LABS: Anion Gap 19.1 mEq/L (5-15); Blood Urea Nitrogen 13 mg/dl (7-17); Calcium 8.9 mg/dl (8.4-10.2); Carbon Dioxide 24 mmol/L (22.0-30.0); Chloride 99 mmol/L (98-107); Estimated Glomerular Filt Rate 53 ml/min (>60); GFR (African American) 64 ML/MIN (>60); Glucose 259 mg/dl (74-100); Potassium 5.1 mmoL/L (3.5-5.1); Sodium 137 mmol/L (136-145)
== END 2024-10-01 23:59 | disposition home or self-care (01) ==
LOC: LAB 14:29
PROVIDERS: PCP Nurse Practitioner Family; Visit Provider Internal Medicine
DX: Z51.81 Encounter for therapeutic drug level monitoring (principal); R53.1 Weakness; R06.09 Other forms of dyspnea; Z95.0 Presence of cardiac pacemaker; D64.9 Anemia, unspecified; I48.92 Unspecified atrial flutter; I71.23 Aneurysm of the descending thoracic aorta, without rupture; E11.9 Type 2 diabetes mellitus without complications; E78.2 Mixed hyperlipidemia; R94.31 Abnormal electrocardiogram [ECG] [EKG]; I25.118 Atherosclerotic heart disease of native coronary artery with other forms of angina pectoris; K21.9 Gastro-esophageal reflux disease without esophagitis
CPT/HCPCS: 36415; 80048; 80162; 85025

== ENCOUNTER 2024-10-14 14:12 | Outpatient (CLI) | payer MEDICARE, SELFPAY ==
--- NOTE | 2024-10-14 14:18 | CA_ITS ---
APPROVED REPORT EXAM: Comprehensive 2D, Doppler, and color-flow Echocardiogram Isotope Technician: CARLEE Eaton, RVS Ht: 5 ft 2 in Wt: 118lbs BSA: 1.53 HR: 112 bpm BP: 137/51 mmHg Rhythm: Atrial Fibrillation Indications: Dyspnea, COPD, , MR, TR, Smoker, DM, HTN, HLD, Aflutter, CHF Echo Enhancing Agent Comments: Patient Heartrate converted from 59bpm-113bpm half way through exam 2D Dimensions IVSd 1.33 cm F: 0.6-1.0 LVEF (Visual) 80.30 % PWd 0.66 cm F: 0.6 - 1.0 LA Volume 113.20 mL LVDd 4.74 cm F: 3.9 - 5.3 LA Volume Index 73.514800 mL/m2 (M/F) 16-34 LVDs 2.42 cm F: 2.2 - 3.5 Left Atrium 4.22 cm F: 2.7 - 3.8 M-Mode Dimensions RVDd 2.07 cm (0.9-2.6) LA Diam 4.49 cm (1.9-4.0) LVDd 5.09 cm (3.5-5.7) LVDs 3.04 cm (3.5-5.7) IVSd 1.35 cm (0.6-1.1) PWd 0.82 cm (0.6-1.1) EF (Teich) 70.60% EPSs 0.63 cm FS 40.30% EDV (Teich) 123.20 mL TAPSE 1.79 (<1.7) ESV (Teich) 36.20 mL LV Diastology E Decel Time 140 (160-240 msec) E/A Ratio 5.02 MED A' 8.50 cm/s Aortic Valve FLEX Index 0.83 cm2/m2 AoV Peak Ron. 271.0 (50-130 cm/s) AO Peak GR. 29.50 mmHg AO Mean GR. 13.00 (<5 mmHg) AO VTI 37.5 (18-25 cm) FLEX (VTI) 1.30 (2.5-4.5 cm2) Mitral Valve MV A Velocity 38.0 (40-130 cm/s) E/A Ratio 5.02 Pulmonary Valve PV Peak Velocity 118.0 (50-150 cm/s) Tricuspid Valve TR P. Velocity 305.00 cm/s RAP Estimate 10.00 mmHg RVSP 47.20 mmHg Left Ventricle The left ventricle is normal size. The left ventricular systolic function is normal. The left ventricular ejection fraction is within the normal range. There is increased LV wall thickness. The septum is asynchronous. There is mild hypokinesis of the inferoseptal LV wall. Diastolic function is indeterminate. LVEF is 60%. Right Ventricle The right ventricle is normal size. The right ventricular systolic function is normal. Atria Left atrium is severely dilated. Right atrium is severely dilated. There is no Doppler evidence of interatrial shunt. Aortic Valve The aortic valve is mildly thickened. Mild aortic stenosis is present. FLEX by continuity equation is 2.8 cm2. Mean AV gradient 13 mmHg. Max AV gradient 36 mmHg. Trace aortic regurgitation. Mitral Valve The mitral valve leaflets are mildly thickened. The posterior MV leaflet appears calcified with restricted motion. Moderate to severe mitral regurgitation is present. Tricuspid Valve Tricuspid valve is grossly normal in structure and function. Mild tricuspid regurgitation. RVSP is 25-30 mmHg. Pulmonic Valve The pulmonary valve is normal in structure. Mild pulmonic regurgitation. Great Vessels The aortic root is normal in size. IVC is normal in size and collapses >50% with inspiration. Pericardium There is no pericardial effusion. Other Information Study Quality: Fair Conclusion Normal global LV systolic function (LVEF 60%). Mild hypokinesis of the inferoseptal LV wall. Severe biatrial dilation. Moderate to severe MR. Mild TR. Mild (FLEX by continuity equation is 2.8 cm2. Mean AV gradient 13 mmHg. Max AV gradient 36 mmHg). In the setting of moderate to severe MR, further evaluation with EDENILSON + cardiac MRI (cardiomyopathy protocol) is suggested to evaluate for the mechanism and true severity of MR, as well as true biventricular chamber size and function. Electronically signed by : Triny Mao MD 10/22/2024 23:10:41
== END 2024-10-14 23:59 | disposition home or self-care (01) ==
LOC: RT 14:13
PROVIDERS: PCP Nurse Practitioner Family; Visit Provider Internal Medicine
DX: I51.7 Cardiomegaly (principal); I34.0 Nonrheumatic mitral (valve) insufficiency; I35.0 Nonrheumatic aortic (valve) stenosis; I36.1 Nonrheumatic tricuspid (valve) insufficiency; R53.1 Weakness; R06.09 Other forms of dyspnea; Z95.0 Presence of cardiac pacemaker; I50.82 Biventricular heart failure
CPT/HCPCS: 93306

== ENCOUNTER 2024-12-09 12:52 | Outpatient (CLI) | payer MEDICARE, SELFPAY ==
[2024-12-09 14:35] LABS: Anion Gap 16.8 mEq/L (5-15); Blood Urea Nitrogen 14 mg/dl (7-17); Calcium 8.5 mg/dl (8.4-10.2); Carbon Dioxide 22 mmol/L (22.0-30.0); Chloride 103 mmol/L (98-107); Estimated Glomerular Filt Rate 68 ml/min (>60); GFR (African American) 83 ML/MIN (>60); Glucose 340 mg/dl (74-100); Potassium 4.8 mmoL/L (3.5-5.1); Sodium 137 mmol/L (136-145)
== END 2024-12-09 23:59 | disposition home or self-care (01) ==
LOC: LAB 12:53
PROVIDERS: PCP Nurse Practitioner Family; Visit Provider Internal Medicine
DX: D64.9 Anemia, unspecified (principal); I95.2 Hypotension due to drugs; I11.9 Hypertensive heart disease without heart failure; I25.118 Atherosclerotic heart disease of native coronary artery with other forms of angina pectoris; E78.5 Hyperlipidemia, unspecified
CPT/HCPCS: 36415; 80048

== ENCOUNTER 2025-01-21 09:41 | Outpatient (CLI) | payer MEDICARE, SELFPAY ==
--- NOTE | 2025-01-21 09:43 | CT_ITS ---
FINAL REPORT TECHNIQUE: Thin section axial images are obtained through the abdomen and pelvis after intravenous contrast. Reconstruction images were obtained from the axial data. Exam was performed using dose reduction techniques. This study was performed with techniques to keep radiation doses as low as reasonably achievable (ALARA). Individualized dose reduction techniques using automated exposure control or adjustment of mA and/or kV according to the patient's size were employed. CLINICAL HISTORY: INCISIONAL HERNIA COMPARISON: 04/27/2021 FINDINGS: LUNG BASES: Lung bases are clear. Heart size is normal. There is a descending thoracic aortic aneurysm, which appears stable when compared to the prior CT of 04/27/2021. LIVER: Fatty infiltration of the liver is present. No focal lesion. GALLBLADDER/BILIARY SYSTEM: Gallbladder is present. No gallstones. No biliary dilatation. SPLEEN: The spleen is mildly enlarged, measuring 13.8 cm in craniocaudal dimension. There is a small hypodense lesion in the upper pole of the spleen, measuring 24 mm in size, stable when compared to the prior exam. PANCREAS: Unremarkable. ADRENALS: Unremarkable. KIDNEYS/URETERS/BLADDER: No hydronephrosis, renal mass, or renal stone. Unremarkable urinary bladder. GI TRACT: No small bowel obstruction or dilatation. The appendix is not well-visualized, and there are no secondary signs of appendicitis. Diverticulosis is present without evidence of diverticulitis. PELVIC ORGANS: The bladder demonstrates wall thickening, with surrounding soft tissue attenuation, that may represent cystitis. LYMPH NODES/RETROPERITONEUM/MESENTERY: No lymphadenopathy. No abdominal aortic aneurysm. ABDOMINAL WALL: There is a midline ventral hernia, whose orifice measures 4.4 cm in diameter. The appearance is essentially unchanged since the prior exam of 2020, and there are no signs of incarceration. The hernia contains only fat. FREE FLUID: No ascites. BONES: There are compression deformities of L1 and L2, which are new since the prior CT of 2020, age-indeterminate. IMPRESSION: Midline ventral hernia is again noted, with the orifice measuring 4.4 cm in diameter. The overall appearance is unchanged, and the hernia contains only fat. No signs of incarceration are identified. Bladder wall thickening with surrounding soft tissue stranding, that may represent cystitis. Compression deformities of the L1 and L2 vertebral bodies, new since the prior CT of 2020. These are age-indeterminate compression fractures, consider MRI for further evaluation if indicated. Reviewed, Interpreted and Dictated by Kristyn Lynne MD Transcribed by Giselle Michelle Authenticated and . [facility]
[2025-01-21 10:03] LABS: Blood Urea Nitrogen 13 mg/dl (7-17); Estimated Glomerular Filt Rate 53 ml/min (>60); GFR (African American) 64 ML/MIN (>60)
[2025-01-21] MEDS: SODIUM CHLORIDE 0.9% 10ML SYR (RAD ONLY) 10 ML IV (10:19)
[2025-01-21] MEDS: IOPAMIDOL-370 (76%);100ML BOTTLE 75 ML IV (10:19)
== END 2025-01-21 23:59 | disposition home or self-care (01) ==
LOC: RAD 09:42
PROVIDERS: PCP Nurse Practitioner Family; Visit Provider Nurse Practitioner Family
DX: M48.56XA Collapsed vertebra, not elsewhere classified, lumbar region, initial encounter for fracture (principal); K43.9 Ventral hernia without obstruction or gangrene; K43.2 Incisional hernia without obstruction or gangrene
CPT/HCPCS: 36415; 74177; 82565; 84520; Q9967

== ENCOUNTER 2025-03-14 13:51 | Inpatient (IN) | payer MEDICARE, SELFPAY ==
--- OUTSIDE RECORDS SUMMARY | 2025-02-11 10:20 | XMS_ITS | Encounter Summary ---
Author Organization [facility] Address [address] [place] [address] Care Team Providers Care Early Childhood Aide Classroom Name Role Phone Cate Frederick APRN Primary Care Provider [phone] Reason for Referral * Other Medical (Routine) - Pending Review Specialty Diagnoses / Procedures Referred By Ольга chavez Referred To Contact Urology Diagnoses Bladder pain Chronic ulcerating interstitial cystitis Procedures Cysto- Urology Mary Cross APRN [address] [address] Phone: tel: fax: Referral ID Status Reason Start Date Expiration Date V isits Requested Visits Authorized [id number] Pending Review 02/11/2025 08/13/2026 1 1 Reason for Visit * Reason Comments Urinary Retention Follow-up Encounter Details Date Type Department Care Team (Late st Contact Info) Description 02/11/2025 10:20 AM EDT Office Visit [place] [facility] [address] [place] [address] Mary Cross APRN [address] [facility] [address] [place] [address] Recurrent UTI (Primary Dx); Bladder pain; Chronic ulcerating interstitial cystitis Social History Tobacco Use Types Packs/Day Years Used Date Smoking Tobacco: Every Day Cigarettes 0.5 70.1 Started: 01/23/1955 Smokeless Tobacco: Never Alcohol Use [...] Cross APRN - 02/11/2025 10:20 AM EDT [facility] Note 02/11/25 CC: Urinary Retention [...] Ketones Negative Negative mg/dL POCT Urine Specific [place] >=1.030 1.005 - 1.030 POCT Urine Blood [...] Ketones Negative Negative mg/dL POCT Urine Specific [place] >=1.030 1.005 - 1.030 POCT Urine Blood [...] Description 04/21/2025 2:20 PM EDT Office Visit [place] [facility] [address] [place] [address] Marylou Laughlin MD [address] [place] [address] Scheduled Orders Name Type Priority [...] to 3 /HPF 02/11/2025 6:53 PM EDT [facility] WBC, Urine >50(A) 0 to 5 /HPF 02/11/2025 6:53 PM EDT [facility] Squamous Epithelial Cells Unable to estimate due to obscuring WBC's (UNEWBC) 0 to 5 /HPF 02/11/2025 6:53 PM EDT [facility] Hyaline Casts Unable to estimate due to obscuring WBC's (UNEWBC) 0 to 5 /LPF 02/11/2025 6:53 PM EDT [facility] Bacteria, Urine Present Negative 02/11/2025 6:53 PM EDT [facility] Yeast (Budding and/or Pseudohyphae) Present(A) Absent 02/11/2025 6:53 PM EDT [facility] Urine Urine specimen from urinary conduit / Unknown Non-blood Collection / Unknown 02/11/2025 12:07 PM EDT 02/11/2025 4:51 PM EDT Narrative [facility] - 02/11/2025 6:53 PM EDT Performed by manual method Mary vufind Tay [facility] LAB URINE ORDERABLES Final Result Performing Organization Address [facility] [place] [address] * (ABNORMAL) Fungal Culture, Routine (02/11/2025 12:07 PM EDT) Culture Confluent Growth Radha glabrata(A) 02/18/2025 1:12 PM EDT [facility] Comment: This isolate has been identified using the FDA Approved [employer] [place] System Edited result: Previously reported as Yeast on 02/15/2025 at 1037 EDT. Urine Urine specimen / Unknown Non-blood Collection / Unknown 02/11/2025 12:07 PM EDT 02/11/2025 4:51 PM EDT us Mary Cross APRN LAB MICROBIOLOGY - GENERAL ORDERABLES Final Result Performing Organization Address [facility] [address] * (ABNORMAL) Urine Culture (02/11/2025 12:07 PM EDT) Culture >=100,000 CFU/mL Lactobacillus species(A) 02/15/2025 9:56 AM EDT [facility] Comment:This is a corrected result. Previous organism was Alpha hemolytic streptococcus vs gram positive meaghan on 02/12/2025 at 1601 EDT. Culture >=100,000 CFU/mL Radha glabrata(A) 02/15/2025 9:56 AM EDT [facility] Comment: This isolate has been identified using the FDA Approved [employer] [place] System Contact Microbiology (06069) within 24 hours if susceptibility required. The [...] MICROBIOLOGY - GENERAL ORDERABLES Final Result [facility] [address] [place] [address] * POC US Bladder Volume (02/11/2025 10:35 AM EDT) Urine, Volume 1 mL IMAGING Anatomical Region Laterality Modality Other us Mary Cross APRN IMG POINT OF CARE ULTRASOU ND Final Result * (ABNORMAL) POCT URINALYSIS DIPSTICK (02/11/2025 10:24 AM EDT) POCT Urine Color Dark Yellow 02/11/2025 10:[address] [facility] POCT Urine Clarity Turbid 02/11/2025 10:[address] [facility] POCT Urine Glucose 250(A) Negative mg/dL 02/11/2025 10:[address] [facility] POCT Urine Bilirubin Negative Negative mg/dL 02/11/2025 10:[address] [facility] POCT Urine Ketones Negative Negative mg/dL 02/11/2025 10:[address] [facility] POCT Urine Specific [place] >=1.030 1.005 - 1.030 02/11/2025 10:[address] [facility] POCT Urine Blood Large(A) Negative 02/11/2025 10:[address] [facility] POCT pH, Urine 5.5 5.0 - 8.0 02/11/2025 10:[address] [facility] POCT Protein, Urine >=300(A) Negative mg/dL 02/11/2025 10:[address] [facility] POCT Urobilinogen, Urine 0.2 0.2, 1.0 EU/dL 02/11/2025 10:[address] [facility] POCT Nitrite, Urine Negative Negative 02/11/2025 10:[address] [facility] POCT Urine Leukocyte Esterase Trace(A) Negative 02/11/2025 10:[address] [facility] Urine 02/11/2025 10:2 4 AM EDT 02/11/2025 10:26 AM EDT us Mary Cross APRN LAB POINT OF CARE TEST DOCKED DEVICE UNSOLICITED RESULTS Final Result [facility] [address] [place], [place] documented in this encounter Visit Diagnoses [...] documented as of this encounter Care Teams Early Childhood Aide Classroom Relationship Specialty Start Date End Date Cate Frederick APRN [address] [place] [address] PCP - General 02/09/22 documented as of this encounter
--- OUTSIDE RECORDS SUMMARY | 2025-02-17 09:40 | XMS_ITS | Encounter Summary ---
Author Organization [facility] Address [address] [place] [address] Care Team Providers Care Gold Buyer Name Role Phone Cate Frederick APRN Primary Care Provider Reason for Visit * Reason Comments Cystitis Encounter Details Date Type Department Care Team (Latest Contact Info) Description 02/17/2025 9:40 AM EDT Procedure Visit [place] [facility] [address], [address] [place] [address] Mary Cross APRN [address] [place] [address] Candiduria (Primary Dx); Megan glabrata [...] Notes * Progress Notes - Mary Cross, MANAGER PART - 02/17/2025 9:40 AM EDT [facility] Clinic Note 02/17/25 CC: No chief [...] Trace (A) Negative mg/dL POCT Urine Specific [place] 1.025 1.005 - 1.030 POCT Urine Blood [...] Ketones Negative Negative mg/dL POCT Urine Specific [place] >=1.030 1.005 - 1.030 POCT Urine Blood [...] Trace (A) Negative mg/dL POCT Urine Specific [place] 1.025 1.005 - 1.030 POCT Urine Blood [...] 04/21/2025 2:20 PM EDT Office Visit [facility] Urology [address], [address] [place] [address] Marylou Laughlin MD [address] [place] [address] documented as of this encounter Procedures Procedure Name Priority Date/Time Associated Diagnosis Comments POCT URINALYSIS DIPSTICK Routine 02/17/2025 9:56 AM EDT documented in this encounter Results * (ABNORMAL) POCT URINALYSIS DIPSTICK (02/17/2025 9:56 AM EDT) POCT Urine Color Yellow 02/17/2025 9:58 AM EDT [facility] POCT Urine Clarity Clear 02/17/2025 9:58 AM EDT [facility] POCT Urine Glucose >=1000(A) Negative mg/dL 02/17/2025 9:58 AM EDT [facility] POCT Urine Bilirubin Negative Negative mg/dL 02/17/2025 9:58 AM EDT [facility] POCT Urine Ketones Trace(A) Negative mg/dL 02/17/2025 9:58 AM EDT [facility] POCT Urine Specific [place] 1.025 1.005 - 1.030 02/17/2025 9:58 AM EDT [facility] POCT Urine Blood Large(A) Negative 02/17/2025 9:58 AM EDT [facility] POCT pH, Urine 5.5 5.0 - 8.0 02/17/2025 9:58 AM EDT [facility] POCT Protein, Urine >=300(A) Negative mg/dL 02/17/2025 9:58 AM EDT [facility] POCT Urobilinogen, Urine 0.2 0.2, 1.0 EU/dL 02/17/2025 9:58 AM EDT [facility] POCT Nitrite, Urine Negative Negative 02/17/2025 9:58 AM EDT [facility] POCT Urine Leukocyte Esterase Small(A) Negative 02/17/2025 9:58 AM EDT [facility] Urine 02/17/2025 9:56 AM EDT 02/17/2025 9:58 AM EDT us Mary Cross APRN LAB POINT OF CARE TEST DOCKED DEVICE UNSOLICITED RESULTS Final Result [facility] [address] [place], [place] documented in this encounter Visit Diagnoses [...] documented as of this encounter Care Teams Gold Buyer Relationship Specialty Start Date End Date Cate Frederick APRN [address] [place] [address] PCP - General 02/09/22 documented as of this encounter
--- OUTSIDE RECORDS SUMMARY | 2025-02-18 11:00 | XMS_ITS | Encounter Summary ---
Author Organization [facility] Address [address] [place] [address] Care Team Providers Care Second Cook And Baker Name Role Phone Cate Frederick APRN Primary Care Provider [phone] Reason for Visit * Reason Comments Bladder Instillation Encounter Details Date Type Department Care Team (Latest Contact Info) Description 02/18/2025 11:00 AM EDT Procedure Visit [facility] [address], [address] [place] [address] [place] Cole LPN [facility] Megan glabrata infection (Primary [...] Cross APRN - 02/18/2025 11:00 AM EDT [facility]rology Clinic Note 02/18/25 CC: No chief [...] Trace (A) Negative mg/dL POCT Urine Specific [place] 1.025 1.005 - 1.030 POCT Urine Blood [...] Ketones Negative Negative mg/dL POCT Urine Specific [place] >=1.030 1.005 - 1.030 POCT Urine Blood [...] Trace (A) Negative mg/dL POCT Urine Specific [place] 1.025 1.005 - 1.030 POCT Urine Blood [...] Plan: Daily ampho B x 7 days aMry Cross APRN [1] Past Medical History: Diagnosis [...] Description 04/21/2025 2:20 PM EDT Office Visit [facility] Urology [address], [address] [place] [address] Marylou Laughlin MD [address] [place] [address] documented as of this encounter Results * (ABNORMAL) Urinalysis, Microscopic (02/23/2025 1:48 PM EDT) RBC, Urine 4 - 10(A) 0 to 3 /HPF LAB URINALYSIS - AUTOMATED METHOD 02/23/2025 6:51 PM EDT [facility] WBC, Urine >50(A) 0 to 5 /HPF LAB URINALYSIS - AUTOMATED METHOD 02/23/2025 6:51 PM EDT [facility] Squamous Epithelial Cells 0 - 2 0 to 5 /HPF LAB URINALYSIS - AUTOMATED METHOD 02/23/2025 6:51 PM EDT [facility] Hyaline Casts 0 - 2 0 to 5 /LPF LAB URINALYSIS - AUTOMATED METHOD 02/23/2025 6:51 PM EDT [facility] Bacteria, Urine Negative Negative LAB URINALYSIS - AUTOMATED METHOD 02/23/2025 6:51 PM EDT [facility] Urine Urine specimen obtained by clean catch procedure / Unknown Non-blood Collection / Unknown 02/23/2025 1:48 PM EDT 02/23/2025 4:41 PM EDT us Mary Cross APRN LAB URINE ORDERABLES Final Result Performing Organization Address City/[facility]/ZIP Co de Phone Number [facility] [address] [place] [address] * (ABNORMAL) Fungal Culture, Routine (02/23/2025 1:48 PM EDT) Culture Heavy Growth Megan glabrata(A) 03/03/2025 9:36 AM EDT [facility] Comment: This isolate has been identified using the FDA Approved LTG Exam Prep Platformer CA System Edited result: Previously reported as Yeast on 02/26/2025 at 0938 EDT. Urine Urine specimen obtained by clean catch procedure / Unknown Non-blood Collection / Unknown 02/23/2025 1:48 PM EDT 02/23/2025 4:41 PM EDT us Mary Cross APRN LAB MICROBIOLOGY - GENERAL ORDERABLES Final Result Performing Organization Address [facility] Co de Phone Number [facility] [address] [place] [address] * Urine Culture (02/23/2025 1:48 PM EDT) Culture No growth at day 1 02/25/2025 11:16 AM EDT [facility] Urine Urine specimen obtained by clean catch procedure / Unknown Non-blood Collection / Unknown 02/23/2025 1:48 PM EDT 02/23/2025 4:41 PM EDT us Mary Cross APRN LAB MICROBIOLOGY - GENERAL ORDERABLES Final Result Performing Organization Address City/[facility]/ZIP Co de Phone Number [facility] [address] [place] [address] documented in this encounter Visit Diagnoses Diagnosis [...] documented as of this encounter Care Teams Second Cook And Baker Relationship Specialty Start Date End Date Cate Frederick APRN [address] [place] [address] PCP - General 02/09/22 documented as of this encounter
--- OUTSIDE RECORDS SUMMARY | 2025-02-22 13:15 | XMS_ITS | Encounter Summary ---
Author Organization [facility] Address [address] [place] [address] Care Team Providers Care Bleach Boiler Packer Name Role Phone Cate Frederick APRN Primary Care Provider Reason for Visit * Reason Comments Bladder Instillation Encounter Details Date Type Department Care Team (Latest Contact Info) Description 02/22/2025 1:15 PM EDT Clinical Support [facility] Urology [address], [address] [place] [phone] [place] Cole LPN [facility] Radha glabrata infection (Primary [...] Description 04/21/2025 2:20 PM EDT Office Visit [facility] Urology [address], [address] [place] [address] Marylou Laughlin MD [address] [place] [address] documented as of this encounter Visit Diagnoses [...] documented as of this encounter Care Teams Bleach Boiler Packer Relationship Specialty Start Date End Date Cate Frederick, MIGUEL [address] [place] [address] PCP - General 02/09/22 documented as of this encounter
--- OUTSIDE RECORDS SUMMARY | 2025-02-23 13:15 | XMS_ITS | Encounter Summary ---
Author Organization [facility] Address [address] [place] [address] Care Team Providers Care Inspector Balance Bridge Name Role Phone Cate Frederick APRN Primary Care Provider [phone] Reason for Visit * Reason Comments Bladder Instillation Encounter Details Date Type Department Care Team (Latest Contact Info) Description 02/23/2025 1:15 PM EDT Clinical Support [facility] [address], [address] [place] [phone] Chelsea Cole LPN [facility] Radha glabrata infection (Primary [...] Description 04/21/2025 2:20 PM EDT Office Visit [facility] [address], [address] [place] [address] Marylou Laughlin MD [address] [place] [address] documented as of this encounter Procedures Procedure [...] at day 1 02/25/2025 11:16 AM EDT [facility] Urine Urine specimen obtained by clean catch procedure / Unknown Non-blood Collection / Unknown 02/23/2025 1:48 PM EDT 02/23/2025 4:41 PM EDT us Mary Cross APRN LAB MICROBIOLOGY - GENERAL ORDERABLES Final Result Performing Organization Address [facility] Co de Phone Number [facility] [address] [place] [address] * (ABNORMAL) Fungal Culture, Routine (02/23/2025 1:48 PM EDT) Culture Heavy Growth Radha glabrata(A) 03/03/2025 9:36 AM EDT [facility] Comment: This isolate has been identified using the FDA Approved MALDI [employer] [place] System Edited result: Previously reported as Yeast on 02/26/2025 at 0938 EDT. Urine Urine specimen obtained by clean catch procedure / Unknown Non-blood Collection / Unknown 02/23/2025 1:48 PM EDT 02/23/2025 4:41 PM EDT us Mary Cross APRN LAB MICROBIOLOGY - GENERAL ORDERABLES Final Result Performing Organization Address City/[facility]/ZIP Co de Phone Number [facility] [address] [place] [address] * (ABNORMAL) Urinalysis, Microscopic (02/23/2025 1:48 PM EDT) RBC, Urine 4 - 10(A) 0 to 3 /HPF LAB URINALYSIS - AUTOMATED METHOD 02/23/2025 6:51 PM EDT [facility] WBC, Urine >50(A) 0 to 5 /HPF LAB URINALYSIS - AUTOMATED METHOD 02/23/2025 6:51 PM EDT [facility] Squamous Epithelial Cells 0 - 2 0 to 5 /HPF LAB URINALYSIS - AUTOMATED METHOD 02/23/2025 6:51 PM EDT [facility] Hyaline Casts 0 - 2 0 to 5 /LPF LAB URINALYSIS - AUTOMATED METHOD 02/23/2025 6:51 PM EDT [facility] Bacteria, Urine Negative Negative LAB URINALYSIS - AUTOMATED METHOD 02/23/2025 6:51 PM EDT [facility] Urine Urine specimen obtained by clean catch procedure / Unknown Non-blood Collection / Unknown 02/23/2025 1:48 PM EDT 02/23/2025 4:41 PM EDT Mary Cross APRN LAB URINE ORDERABLES Final Result Performing Organization Address City/State/[facility] Co de Phone Number [facility] [address] [place] [address] documented in this encounter Visit Diagnoses Diagnosis [...] documented as of this encounter Care Teams Inspector Balance Bridge Relationship Specialty Start Date End Date Cate Frederick APRN [address] [place] [address] PCP - General 02/09/22 documented as of this encounter
--- OUTSIDE RECORDS SUMMARY | 2025-02-24 13:30 | XMS_ITS | Encounter Summary ---
Author Organization [facility] Address [address] [place] [address] Care Team Providers Care Secondary Education Professor Name Role Phone Cate Frederick APRN Primary Care Provider [phone] Reason for Visit * Reason Comments Bladder Instillation Encounter Details Date Type Department Care Team (Latest Contact Info) Description 02/24/2025 1:30 PM EDT Clinical Support [facility]rology [address], [address] [place] [address] Germaine Francisco LPN [facility] Recurrent UTI (Primary Dx) Social History Tobacco Use Types Packs/Day Years Used Date Smoking Tobacco: Every Day Cigarettes 0.5 70.1 Started: 01/23/1955 Smokeless Tobacco: Never Tobacco Cessation:Ready [...] clinic with any questions or concerns at [phone] documented in this encounter Plan of Treatment Upcoming Encounters Date Type Department Care Team (Late st Contact Info) Description 04/21/2025 2:20 PM EDT Office Visit [facility]rology [address], [address] [place] [address] Marylou Laughlin MD [address] [place] [address] documented as of this encounter [...] documented as of this encounter Care Teams Secondary Education Professor Relationship Specialty Start Date End Date Cate Frederick APRN [address] [place] [address] PCP - General 02/09/22 documented as of this encounter
--- OUTSIDE RECORDS SUMMARY | 2025-02-25 13:15 | XMS_ITS | Encounter Summary ---
Author Organization [facility] Address [address] [place] [address] Care Team Providers Care Supervisor Hospitality House Name Role Phone Cate Frederick APRN Primary Care Provider Reason for Visit * Reason Comments Bladder Instillation Encounter Details Date Type Department Care Team (Late st Contact Info) Description 02/25/2025 1:15 PM EDT Clinical Support [place] [facility] [address], [address] [place] [address] Marek Bello EM[facility] Candiduria [...] clinic with any questions or concerns at [phone] documented in this encounter Plan of Treatment Upcoming Encounters Date Type Department Care Team (Late st Contact Info) Description 04/21/2025 2:20 PM EDT Office Visit [place] [facility] [address], [address] [place] [address] Marylou Laughlin MD [address] [place] [address] documented as of this encounter [...] documented as of this encounter Care Teams Supervisor Hospitality House Relationship Specialty Start Date End Date Cate Frederick APRN [address] [place] [address] PCP - General 02/09/22 documented as of this encounter
--- OUTSIDE RECORDS SUMMARY | 2025-02-26 13:15 | XMS_ITS | Encounter Summary ---
Author Organization [facility] Address [address] [place] [address] Care Team Providers Care Mop Handle Assembler Name Role Phone Cate Frederick APRN Primary Care Provider Reason for Visit * Reason Comments Bladder Instillation Encounter Details Date Type Department Care Team (Latest Contact Info) Description 02/26/2025 1:15 PM EDT Clinical Support [place] [facility] [address], [address] [place] [phone] Chelsea Cole LPN [facility] Candiduria (Primary Dx) Social History Tobacco Use Types [...] Sign Reading Time Taken Comments Blood Pressure 139/77 02/26/2025 1:19 PM EDT Pulse 66 02/26/2025 1:19 PM EDT Temperature - - Respiratory Rate - - Oxygen Saturation - - Inhaled Oxygen Concentration - - Weight - - Height - - Body Mass Index - - documented in this encounter Miscellaneous Notes * Progress Notes - Chelsea Cole LPN - 02/26/2025 1:15 PM EDT Patient ID: Claribel Skelton is a 84 y.o. female. Patient presented to clinic for bladder instillation. Patient was accompaynied for visit by her daughter. Both stated concerns of labs results and new symptoms that have presented last night. Patient stated that she started having symptoms of nausea, vomiting and diarrhea. Procedures Bladder catheterization and instillation procedure was discussed with the patient including benefits and risks for infection, bleeding and allergic reaction. Verbal consent from the patient was given. Patient was then prepped using betadine swabs x3 and bladder catheterization per urethra was performed using an 10 fr hydrophilic catheter using sterile technique. 50 ml of yellow urine was obtainedvia catheter. Then ampho B instillation was slowly instilled. Patient tolerated procedure well withno complaints. Plan: 1. Patient advised to keep scheduled follow-up appts with provider. 2. Patient advised to call the office with any signs or symptoms of UTI, abnormal bleeding, or other concerns. documented in this encounter Plan of Treatment Upcoming Encounters Date Type Department Care Team (Late st Contact Info) Description 04/21/2025 2:20 PM EDT Office Visit [facility] [address], [address] [place] [address] Marylou Laughlin MD [address] [place] [address] documented as of this encounter Visit Diagnoses Diagnosis Candiduria- Primary documented in this encounter Administered Medications Inactive Administered Medications - up to 3 most recent administrations Medication Order MAR Action Action Date Dose Rate Site amphotericin B conventional (Fungizone) injection 15 mg 15 mg, Intravesical, Once, 1 dose, On Sat02/26/25 at 1445, RoutineIndications:Candiduria Given 02/26/2025 1:46 PM EDT 15 mg lidocaine PF (Xylocaine) 2 % injection 300 mg 300 mg (15 mL), Other, Once, 1 dose, On Sat02/26/25 at 1445, RoutineIndications:Candiduria Given 02/26/2025 1:46 PM EDT 300 mg documented in this encounter Additional Health Concerns Assessment Noted Time PHQ-9 Depression Total Score: 24 023 12:02 PM EST A fall risk assessment has been complete d for the patient 02/24/2025 2:21 PM EDT A Body Mass Index follow-up plan has been documented for the patient 02/26/2025 1:54 PM EDT documented as of this encounter Care Teams Mop Handle Assembler Relationship Specialty Start Date End Date Cate Frederick APRN [address] [place] [address] PCP - General 02/09/22 documented as of this encounter
[2025-03-14] VITALS (19 sets, daily range): BP systolic 92–137; BP diastolic 45–75; PULSE 60–137; RESP 12–26; TEMP 36.6–36.9; O2SAT 90–100; BMI 20.7
--- NOTE | 2025-03-14 13:56 | HMH.EDGENADL ---
Discharge Plan Disposition Chief Complaint: Shortness of Breath/Dyspnea Prescriptions Prescriptions: No Action Tradjenta 5 mg tablet 5 mg PO DAILY atorvastatin 20 mg tablet 20 mg PO HS Qty: 90 3RF Xarelto 15 mg tablet 15 mg PO QPMWITHMEAL Qty: 30 5RF (DME) blood-glucose meter [OneTouch Verio Flex meter] Mis See Rx Instructions .ROUTE .MEDSUPPLY Qty: 1 Patient Comments: test blood glucose twice a day Rx Instructions: As directed glipizide 5 mg tablet extended release 24hr 5 mg PO DAILY Patient Comments: TAKE ONE TABLET BY MOUTH EVERY MORNING FOR DIABETES (DME) OneTouch Verio test strips Strip See Rx Instructions .ROUTE .MEDSUPPLY Qty: 10 Patient Comments: Use as directed to check glucose twice daily Rx Instructions: As directed insulin glargine [Lantus Solostar U-100 Insulin] 100 unit/mL (3 mL) insulin pen SQ Patient Comments: Inject 20 units every day by subcutaneous route at bedtime, for diabetes. (DME) pen needle, diabetic [BD Ultra-Fine Nai Pen Needle] 32 gauge x 5/32 needle See Rx Instructions .ROUTE .MEDSUPPLY Qty: 1200 Patient Comments: Use as directed with insulin Rx Instructions: As directed (DME) lancets [OneTouch Delica Plus Lancet] 33 gauge misc See Rx Instructions .ROUTE .MEDSUPPLY Qty: 100 Patient Comments: Use as directed to test blood glucose twice daily Rx Instructions: As directed digoxin 125 mcg (0.125 mg) tablet 125 mcg PO DAILY Qty: 30 6RF losartan 25 mg tablet 25 mg PO DAILY Qty: 30 2RF clopidogrel 75 MG tablet 75 mg PO DAILY amitriptyline 50 mg tablet 50 mg PO HS Referrals Follow up/Referrals: Cate Frederick [Primary Care Provider, Medical] - See instructions Print Language Print Language: Yakut Discharge ED Provider: Saul Fajardo General Adult HPI General Chief complaint: Shortness of Breath/Dyspnea Stated complaint: SOA, weak Time Seen by Provider: 03/14/25 13:56 Related Data Home Medications ?Medication ?Instructions ?Recorded ?Confirmed clopidogrel 75 mg tablet 75 mg PO DAILY 04/21/21 03/14/25 linagliptin 5 mg tablet (Tradjenta) 5 mg PO DAILY 08/15/22 03/14/25 amitriptyline 50 mg tablet 50 mg PO HS 05/03/24 03/14/25 blood sugar diagnostic (OneTouch #10 ea 10/01/24 03/14/25 Verio test strips) blood-glucose meter (OneTouch #1 ea 10/01/24 03/14/25 Verio Flex Meter) glipizide 5 mg tablet, extended 5 mg PO DAILY 10/01/24 03/14/25 release 24 hr insulin glargine 100 unit/mL (3 unit SQ 10/01/24 02/16/25 mL) subcutaneous pen (Lantus Solostar U-100 Insulin) lancets 33 gauge (OneTouch Delica #100 ea 10/01/24 03/14/25 Plus Lancet) pen needle, diabetic 32 gauge x #1,200 ea 10/01/24 03/14/25 (BD Ultra-Fine Nai Pen Needle) Previous Rx's ?Medication ?Instructions ?Recorded rivaroxaban 15 mg tablet (Xarelto) 15 mg PO QPMWITHMEAL #30 tabs 06/10/24 atorvastatin 20 mg tablet 20 mg PO HS #90 tabs 08/05/24 digoxin 125 mcg (0.125 mg) tablet 125 mcg PO DAILY #30 tabs 10/01/24 losartan 25 mg tablet 25 mg PO DAILY #30 tabs 11/18/24 Allergies Allergy/AdvReac Type Severity Reaction Status Date / Time Sulfa (Sulfonamide Allergy Unknown Unknown Verified 02/16/25 11:29 Antibiotics) allergy reaction Penicillins Allergy Other Verified 02/16/25 11:29 [facility] Disclaimer: The information contained in this section may have been updated after the patient was seen, as this information can be updated by other users. Medical History History of cardiac pacemaker in situ Implant APR 2024 Hypotension Atrial flutter Pre-syncope Descending thoracic aortic aneurysm Abnormal echocardiogram Diabetes mellitus Symptomatic bradycardia Dizziness Shortness of Breath Atypical angina COPD (chronic obstructive pulmonary disease) Hyperlipidemia Hypertension Aortic heart murmur Coronary artery disease Abnormal electrocardiogram [ECG] [EKG] Encounter for pre-operative cardiovascular clearance Surgical History History of coronary artery stent placement Family History Father Family history of myocardial infarction Social History Smoking Status: Current every day smoker tobacco type: cigarettes packs per day: 1 second hand exposure: Yes alcohol intake: never substance use type: denies use current occupational status: retired Travel in the last 8 weeks?: None household members: spouse housing: house current occupation: [employer] current occupational exposures/hazards: No caffeine: No Have you lived/traveled outside US in past 30 days?: No Contact w/someone who lives/traveled outside US past 30 days?: No Exposure to someone with infectious disease in past 14 days?: No Do you have a fever (greater than 100.4 F or 38 C)?: No Have you tested positive for COVID-19?: No Exposed to someone with COVID-19 in past 14 days?: No Do you have a sore throat?: No Do you have a cough?: No Do you have any weakness?: Yes Do you have any diarrhea?: No Are you experiencing any unusual bleeding?: No Do you have any muscle aches/pain?: No Do you have any abdominal pain?: No Are you experiencing loss of taste or smell?: No Other Medical History Have you received the Flu Vaccine for this season: No Have you received the Pneumonia Vaccine: Yes ROS Obtained: Yes Systems reviewed as appropriate & no additional complaints except as documented Physical Exam General General appearance: alert and in no apparent distress Head Head exam: atraumatic and normal inspection Eye Eye exam: Present normal appearance, PERRL and EOMI ENT ENT exam: Present normal exam, normal oropharynx and mucous membranes moist Neck Neck exam: Present normal inspection, full ROM and trachea midline; Absent lymphadenopathy Chest Chest inspection: Present normal inspection and symmetric chest wall rise Respiratory Respiratory exam: Present normal lung sounds bilaterally; Absent accessory muscle use Cardiovascular Cardiovascular exam: Present regular rate, normal rhythm, normal heart sounds, +S1 and +S2 Abdominal Exam Abdominal exam: Present soft and normal bowel sounds; Absent tenderness, guarding or rebound Extremities Exam Extremities exam: Present normal inspection and full ROM Neurological Exam Neurological exam: Present alert, oriented X3 and CN II-XII intact Psychiatric Psychiatric exam: Present normal affect and normal mood Skin Skin exam: Present warm, dry and normal color Lymphatic Lymphatic Findings: no adenopathy Medical Decision Making Medical Records Screening: Per USPSTF and CDC recommendations, given the prevalence of disease in our region, it is our hospital?s policy to screen for HIV and viral Hepatitis for all patients aged 18 and over and those with ongoing risk factors. Vital Signs: 03/14/25 14:05 Temperature 97.9 F Temperature Source Oral Pulse Rate [Left Radial] 129 H Respiratory Rate 20 Blood Pressure [Right Arm] 137/75 Blood Pressure Mean [Right Arm] 95 02 Sat by Pulse Oximetry 99 Oxygen Delivery Method Room Air Orders (Tests/Meds): ORDERS Category Date Time Status XR chest portable Stat Exams 03/14/25 14:06 Ordered BNP [NT Pro Brain Natriuretic Pep.] Stat Lab 03/14/25 14:10 Received CBC w/Auto Diff [Complete Blood Count Auto Diff] Stat Lab 03/14/25 14:10 Received CMP [Comprehensive Metabolic Panel] Stat Lab 03/14/25 14:10 Received Digoxin Stat Lab 03/14/25 14:18 Ordered Thyroid Panel Stat Lab 03/14/25 14:10 Received Trop I [Troponin I] Stat Lab 03/14/25 14:10 Received Troponin I Q3H Lab 03/14/25 17:15 Ordered Troponin I Q3H Lab 03/14/25 20:15 Ordered Medical Decision Narrative: In summary patient is a [age, sex] who presents to the emergency department for evaluation of [complaint]. Patient is [hemodynamically stable/unstable] upon arrival, [febrile/afebrile]. [Unremarkable physical exam, nonfocal exam versus focal remarkable exam]. Differential diagnosis includes [DDx]. Initial workup will be conducted with [hematologic labs, imaging, respiratory swab, describe workup]. Initial interventions include [crystalloid bolus, medications, p.o. challenge, etc.] initial workup reviewed by me [hematologic labs are remarkable for... Imaging remarkable for... Urinalysis remarkable for]. Upon repeat evaluation [patient had acceptable resolution of symptoms, had persistent pain for which additional interventions were conducted (describe interventions), tolerated p.o., was ambulatory, etc.]. Given this [patient is appropriate for discharge at this time and will be discharged with a prescription for... The case was discussed with hospital medicine regarding management and they will admit the patient their service for continued evaluation at this time... Etc.] Places where you can increase complexity: I informally interpreted the patient's chest x-ray or CT read and is remarkable for... Documenting what the monitor car operator shows with rate and rhythm Consideration of test but deferring. Ex: I considered chest x-ray on this patient however given that they have no oxygen requirement and are clear to auscultation all lung williamson will be deferred. Social determinants of health: Given that patient is undomiciled increases complexity. Given that patient has polysubstance abuse compounds all aspects of care
--- NOTE | 2025-03-14 14:03 | ECG_ITS ---
APPROVED REPORT Exam: Resting ECG HR:124 bpm ECG Measurements Heart Rate 124 AXES QRSd 83 QRS 41 QT 266 T 180 QTc 340 Conclusion ATRIAL FIBRILLATION WITH RAPID VENTRICULAR RESPONSE ANTEROSEPTAL MYOCARDIAL INFARCTION , OF INDETERMINATE AGE [40+ ms Q WAVE IN V1-V4] MARKED ST DEPRESSION, CONSIDER SUBENDOCARDIAL INJURY [0.2+ mV ST DEPRESSION] ACUTE WI UNCONFIRMED REPORT Electronically signed by : ZITA OSEI, 03/16/2025 03:50:58
--- NOTE | 2025-03-14 14:06 | XR_ITS ---
PROCEDURE INFORMATION: Exam: XR Chest Exam date and time: 03/14/2025 2:17 PM Age: 84 years old Clinical indication: Dyspnea; Additional info: Dyspnea, a-fib rvr TECHNIQUE: Imaging protocol: Radiologic exam of the chest. Views: 1 view. COMPARISON: CR XR CHEST PORTABLE 05/12/2024 4:02 PM FINDINGS: Tubes, catheters and devices: Right subclavian pacemaker leads overlie the right atrium and right ventricle. Lungs: Hyperexpanded lungs without infiltrate. Pleural spaces: Unremarkable. No pleural effusion. No pneumothorax. Heart/Mediastinum: Unremarkable. No cardiomegaly. Bones/joints: Unremarkable. IMPRESSION: 1. Right subclavian pacemaker leads overlie the right atrium and right ventricle. 2. Hyperexpanded lungs without infiltrate.
--- OUTSIDE RECORDS SUMMARY | 2025-03-14 14:09 | XMS_ITS | Referral Summary ---
Author Organization [employer] ([place], [place], [place], [place]) Address [address] [place] [address] Care Team Providers Care Contract Designer Name Role Phone Cate Frederick APRN Primary Care Provider [phone] Allergies Active Allergy Reactions Criticality Noted Date Comments Sulfamethoxazole-Trimethoprim Hives High 2023 Sulfa (Sulfonamide Antibiotics) Hives High 01/2024 Medications amLODIPine (NORVASC) 5 MG tablet Take 1 tablet (5 mg total) by mouth daily. 3 Active atorvastatin (LIPITOR) 10 MG tablet Take 1 tablet (10 mg total) by mouth nightly. 3 Active clopidogreL (PLAVIX) 75 mg tablet Take 1 tablet (75 mg total) by mouth daily. 4 Active diclofenac 1 % Gel Apply 2 g topically 4 (four) times daily. 3 Active Tradjenta 5 mg tablet Take 1 tablet (5 mg total) by mouth daily. 4 Active Active Problems Problem Noted Date Diagnosed Date HTN (hypertension) 10/03/2023 CAD (coronary artery disease) 10/03/2023 Stented coronary artery 10/03/2023 Diabetes mellitus, type 2 10/03/2023 Coagulopathy 10/03/2023 Smoker 10/03/2023 CVA (cerebral vascular accident) 10/03/2023 Social History Tobacco Use Types Packs/Day Years Used Date Smoking Tobacco: Every Day Cigarettes Smokeless Tobacco: Never Tobacco Cessation:Ready to Q uit: Not Asked; Counseling Given: Not Answered Alcohol Use Standard Drinks/Week Comments Never 0 (1 standard drink = 0.6 oz pur e alcohol) Employment Answer Date Recorded Help finding and keeping a job Not on file 0 08/27/2023 Family and Community Support Answer Tom e Recorded Help with Day to Day Activities Not on file 08/27/2023 Feeling Lonely or Isolated Not on file 08/27 Educational Attainment Answer Date Esdras rded Speak language other than Mexican at home Not on file 08/27/2023 Want help with school or training Not on file 08/27/2023 Substance Use Answer Date Recorded Used prescription meds for non-medical reasons N ot on file 08/27/2023 Used illegal drugs past 12 months Not on file 08/27/2023 Comments No Sex and Gender Information Value Date Recorded Sex Assigned at Female 10/03/2023 9:11 AM OIL SPRAYING MACHINE OPERATOR Legal Sex Female 5:32 PM CDT Gender Identity Female 10/03/2023 9:11 AM OIL SPRAYING MACHINE OPERATOR Sexual Orientation Not on file Last Filed Vital Signs Vital Sign Reading Time Taken Comments Blood Pressure 148/63 10/24/2023 11:35 AM EST Pulse 89 10/24/2023 11:35 AM EST Temperature 36.1 C (97 F) 10/24/2023 11:35 AM EST Respiratory Rate 18 10/24/2023 11:35 AM EST Oxygen Saturation 98% 10/24/2023 11:35 AM EST Inhaled Oxygen Concentration - - Weight 61.2 kg (135 lb) 10/24/2023 10:00 AM EST Height 162.6 cm (5' 4 ) 10/24/2023 10:00 AM EST Body Mass Index 23.17 10/24/2023 10:00 AM EST Plan of Treatment Not on file Medical Devices Implanted Type Area Market Director Device Identifier Shelf Expiration Date Model / Serial / Lot Iol Uv Clareon +20.5 [id number] - [id number] Implanted:Qty: 1 on 10/03/2023 by Ahmet Mohr MD at [facility] IMPLANTS Right: Eye JOJO 12/30/2024 [id number] / [id number] / Iol Uv Clareon +21.0 [id number] - [id number] Implanted:Qty: 1 on 10/24/2023 by Ahmet Mohr MD at [facility] IMPLANTS Left: Eye JOJO 04/02/2027 [id number] / [id number] Heart Description:X2 Insurance [place] [address] [employer] [facility] Care Teams Contract Designer Relationship Specialty Start Date End Date Cate Frederick, ASSOCIATE [employer] [address] [place] [address] PCP - General Family Medicine 06/26/23
--- OUTSIDE RECORDS SUMMARY | 2025-03-14 14:09 | XMS_ITS | Encounter Summary ---
Author Organization [employer] ([place], [place], [place], [place]) Address [address] [place] [address] Care Team Providers Care Demurrage Man Name Role Phone Cate Frederick APRN Primary Care Provider [phone] Reason for Referral * Mammography (Routine) - Closed Specialty Diagnoses / Procedures Referred By Contac t Referred To Contact Diagnoses Visit for screening mammogram Procedures MM digital mammo screen bilateral Renee Cortés APRN [address] [address] Phone: tel: fax: Referral ID Status Reason Start Date Expiration Date Visits Re quested Visits Authorized [id number] Closed 05/06/2022 11/02/2022 1 1 Encounter Details Date Type Department Care Team (Late st Contact Info) Description 05/06/2022 Outside Orders [facility] Central Scheduling [address] [place] [id number] Renee Cortés LACE STRIPPER [address] [address] Visit for screening mammogram (Primary Dx) Social History Tobacco Use Types Packs/Day Years Used Date Smoking Tobacco: Never Assessed Comments Unknown Sex and Gender Information Value Date Recorded Sex Assigned at Female 10/03/2023 9:11 AM ENGINEERING RECRUITER Legal Sex Female 5:32 PM CDT Gender Identity Female 10/03/2023 9:11 AM ENGINEERING RECRUITER Sexual Orientation Not on file documented as of this encounter Plan of Treatment Not on file documented as of this encounter Results * MM digital mammo screen bilateral (06/06/2022 1:36 PM EDT) Anatomical Region Laterality Modality Breast Bilateral Mammography 06/07/2022 11:1 1 AM EDT Impressions 10/07/2022 1:47 PM EST BI-RADS CATEGORY: 2 , BENIGN FINDING(S). RECOMMENDED FOLLOW-UP: 12M FOLLOW UP SCREENING MAMMOGRAM IN ONE YEAR. Images reviewed, interpreted, and dictated by DO Kingsley Franco 10/07/2022 1:47 PM EST Lida Skelton : 1940 DATE OF EXAM: May 08, 2021 EXAMINATION: Bilateral screening mammogram CLINICAL INDICATION: Routine screening mammogram. TECHNIQUE: Bilateral CC and MLO views were obtained. The study was read with the assistance of CAD. COMPARISON: May 08, 2021 FINDINGS: There are scattered fibroglandular densities. Benign-appearing calcifications. There are no suspicious masses, areas of architectural distortion or clustered microcalcifications. us Renee Cortés LACE STRIPPER IMG MAMMOGRAPHY ORDERABLES Final Result documented in this encounter Visit Diagnoses Diagnosis Visit for screening mammogram- Primary Visit for screening mammogram documented in this encounter Care Teams Demurrage Man Relationship Specialty Start Date End Date Cate Frederick, LACE STRIPPER [address] [place] [address] PCP - General Family Medicine 06/26/23 documented as of this encounter
--- OUTSIDE RECORDS SUMMARY | 2025-03-14 14:09 | XMS_ITS | Encounter Summary ---
Author Organization [facility] Address [address] [place] [address] Care Team Providers Care Bar Machine Operator Production Name Role Phone Cate Frederick APRN Primary Care Provider [phone] Reason for Visit * Reason Onset Date Comments HCN - Patient Message 02/02/[address] Encounter Details Date Type Department Care Team (Late st Contact Info) Description 02/02/2025 Telephone [facility] [address] [place] [address] Mary Cross CAR OILER [address] [place] [address] HCN - Patient Message (Call request ) Social History Tobacco Use Types Packs/Day Years [...] AM EST documented as of this encounter Functional Status * Over the [...] as of this encounter Miscellaneous Notes * Telephone Encounter - Lorena Mcginnis - 02/16/2025 2:30 PM EDT 02/16/2025 Called and left a detailed voice message that Mary Cross will see the patient earlier on 02/18/2025 at 11:00 am. [facility] Urology. KJa * Telephone Encounter - Phuong Brooks - 02/02/2025 3:46 PM EDT Void--pt has been scheduled with MR. Does not need rec for IC * Telephone Encounter - Gracia Valadez - 02/02/2025 12:00 PM EDT Patient Phone Message Reason for Call: [facility] (PCP) requesting a return call to discuss recommendations on where pt could be seenfor Interstitial Cystitis Best contact number and optimal time of day to reach caller: [phone] Kaci Note: Please do not reply to this message. Follow-up communication and further actions as a result of this message need to be communicated with the patient directly, if the patient is not active onMyChart. If the patient is active on MyChart, they will receive notification of the communication/outcome via MyChart. documented in this encounter Plan of Treatment Upcoming Encounters Date Type Department Care Team (Late st Contact Info) Description 04/21/2025 2:20 PM EDT Office Visit [facility] [address] [place] [address] Marylou Laughlin MD [address] [place] [address] documented as of this encounter Visit Diagnoses Not on filedocumented in this encounter Additional Health Concerns Assessment Noted Time PHQ-9 Depression Total Score: 24 023 12:02 PM EST A fall risk assessment has been complete d for the patient 08/26/2023 1:20 PM EST A Body Mass Index follow-up plan has been documented for the patient 08/31/2023 3:43 PM EST documented as of this encounter Care Teams Bar Machine Operator Production Relationship Specialty Start Date End Date Cate Frederick APRN [address] [place] [address] PCP - General 02/09/22 documented as of this encounter
--- OUTSIDE RECORDS SUMMARY | 2025-03-14 14:09 | XMS_ITS | Encounter Summary ---
Author Organization [employer] ([place], [place], [place], [place]) Address [address] [place] [address] Care Team Providers Care Shipping Clerk Name Role Phone Cate Frederick APRN Primary Care Provider [phone] Reason for Referral * Mammography (Routine) - New Request Specialty Diagnoses / Procedures Referred By Contac t Referred To Contact Diagnoses Other screening mammogram Procedures MM digital mammo screen with dayana bilateral Cate Frederick APRN [address] [place] [address] Phone: tel: fax: Referral ID Status Reason Start Date Expiration Date V isits Requested Visits Authorized [id number] New Request 06/19/2024 06/19/2025 1 1 Encounter Details Date Type Department Care Team (Late st Contact Info) Description 06/19/2024 Outside Orders [facility] Central Scheduling [address] [place] [address] Cate Frederick APRN [address] [facility] [place] [id number] Other screening mammogram (Primary Dx) Social History Tobacco Use Types Packs/Day Years Used Date Smoking Tobacco: Every Day Cigarettes Smokeless Tobacco: Never Alcohol Use Standard Drinks/Week [...] Date Esdras rded Speak language other than Paraguayan at home Not on file 08/27/2023 Want help with school or training Not on file 08/27/2023 Substance Use Answer Date Recorded Used prescription meds for non-medical reasons N ot on file 08/27/2023 Used illegal drugs past 12 months Not on file 08/27/2023 Comments No Sex and Gender Information Value Date Recorded Sex Assigned at Female 10/03/2023 9:11 AM SAW GRINDER Legal Sex Female 5:32 PM CDT Gender Identity Female 10/03/2023 9:11 AM SAW GRINDER Sexual Orientation Not on file documented as of this encounter Plan of Treatment Not on file documented as of this encounter Results * MM digital mammo screen with dayana bilateral (11/10/2024 1:41 PM EDT) Anatomical Region Laterality Modality Breast Bilateral Mammography 11/11/2024 12:2 1 PM EDT Impressions 11/11/2024 12:24 PM EDT BI-RADS 1, negative. Yearly follow-up mammography is recommended. Narrative 11/11/2024 12:24 PM EDT BILATERAL DIGITAL SCREENING MAMMOGRAM WITH BREAST TOMOSYNTHESIS COMPARISON DATE: 06/26/2023 FINDINGS: Breast parenchyma: There are scattered areas of fibroglandular density. There are no dominant or suspicious densities. There are no focal clusters of calcifications. There are no areas of significant asymmetry. There are no areas of focal mammographic concern. Cate Frederick HULL INSPECTOR IMG MAMMOGRAPHY ORDERABLES F inal Result documented in this encounter Visit Diagnoses Diagnosis Other screening mammogram- Primary Other screening mammogram documented in this encounter Care Teams Shipping Clerk Relationship Specialty Start Date End Date Cate Frederick, HULL INSPECTOR [address] [place] [address] PCP - General Family Medicine 06/26/23 documented as of this encounter
--- OUTSIDE RECORDS SUMMARY | 2025-03-14 14:09 | XMS_ITS | Encounter Summary ---
Author Organization [facility] Address [address] [place] [address] Care Team Providers Care Drilling Supervisor Name Role Phone Cate Frederick APRN Primary Care Provider [phone] Encounter Details Date Type Department Care Team (Latest Contact Info) Description 02/11/2025 Travel Social History Tobacco Use Types Packs/Day Years [...] AM EST documented as of this encounter Plan of Treatment Upcoming Encounters Date Type Department Care Team (Late st Contact Info) Description 04/21/2025 2:20 PM EDT Office Visit [facility] [address] [place] [address] Marylou Laughlin MD [address] [place] [address] documented as of this encounter [...] documented as of this encounter Care Teams Drilling Supervisor Relationship Specialty Start Date End Date Cate Frederick, MIGUEL [address] [place] [address] PCP - General 02/09/22 documented as of this encounter
--- OUTSIDE RECORDS SUMMARY | 2025-03-14 14:09 | XMS_ITS | Data Portability ---
Author Organization [facility] [facility] [place] [facility] Address [address] [place] [id number] Assessment Encounter Date Assessment Date Assessment LastModified by Organization Details LastModified Time 06/26/2022 06/26/2022 In lieu of ongoing symptoms and UTI recurrence along with previous cystoscopic findings, I recommend sending urine for culture and sensitivity. Will start Macrobid based on previous urine culture susceptibilities from February. Will tailor antibiotic choices more appropriately once the urine culture returns. Will leave patient on antibiotic suppression and then make plans to perform cystoscopy under anesthesia with possible biopsy. Patient will need cardiac clearance in lieu of her anticoagulant requirement. She will need to be off anticoagulant around the time of the procedure and for a period of time thereafter since she will be at a significant increased risk of bleeding. risks of the procedure include bleeding, infection, sepsis, injury to urinary tract, urinary retention, possible catheter requirement, anesthetic and medical risks. We will move to get cardiac clearance in regard to her anticoagulant. [email or web address] Not available 06/26/2022 15:25:17 Plan of Treatment Reminders Order Date Submit Date Provider Last Modified By Organization Details Last Modified Time Details Appointments None recorded. Lab urinalysis , dipstick 2021 022 [email or web address] [facility] [address], [place], [address], 14:59:08 culture, urine 2021 022 [email or web address] [facility] [address], [facility] [place], [address], 11:28:33 urinalysis , dipstick 2021 [email or web address] [facility], [address] [place] [address], [address], [place], [address], 14:43:03 Referral None recorded. Procedures None recorded. Surgeries None recorded. Imaging None recorded. Medication Orders Macrobid 100 mg capsule 2021 [email or web address] [facility], [address] [place], [address], 15:43:36 Estrace 0.01% (0.1 mg/gram) vaginal cream 2021 [email or web address] [facility], [address] [place], [address], 14:43:14 Estrace 0.01% (0.1 mg/gram) vaginal cream 2021 [email or web address] [facility], [address] [place], [address], 14:43:03 Patient TargetsNo targets recorded. Patient InstructionsNo instructions recorded. Reason for Referral None Reported. Results Created Date Observation Date Name Description Value Unit Range Abnormal Flag Note LastModifiedBy Organization Detail LastModifiedTime 05/14/2005/14/2022 urina lysis , dipst ick Leukocytes (reference range) trace Not Available [facility] [address] [place] [address] [address], [place], [address], 05/14/2022 14:28:29 05/14/20 22 05/14/2022 urina lysis , dipst ick Nitrite (reference range:) negati ve Not Available [facility] [address] [place] [address] [address], [place], [address], 05/14/2022 14:28:29 05/14/20 22 05/14/2022 urina lysis , dipst ick Urobilinogen (reference range) 0.2 Not Available [facility] [address], [place], [address], 05/14/2022 14:28:29 05/14/20 22 05/14/2022 urina lysis , dipst ick Protein (reference range) negati ve Not Available [facility] [address], [place], [address], 05/14/2022 14:28:29 05/14/20 22 05/14/2022 urina lysis , dipst ick pH (reference range 5-8.5) 5.0 Not Available [facility] [address], [place], [address], 05/14/2022 14:28:29 05/14/20 22 05/14/2022 urina lysis , dipst ick Blood (reference range:) negati ve Not Available [facility] [address], [place], [address], 05/14/2022 14:28:29 05/14/20 22 05/14/2022 urina lysis , dipst ick Specific [place] (reference range) 1.020 Not Available [facility] [address] [address], [place], [address], 05/14/2022 14:28:29 05/14/20 22 05/14/2022 urina lysis , dipst ick Ketone (reference range) negati ve Not Available [address] [address], [place], [address], 05/14/2022 14:28:29 05/14/20 22 05/14/2022 urina lysis , dipst ick Bilirubin (reference range) negati ve Not Available [address] [place], [address], 05/14/2022 14:28:29 05/14/20 22 05/14/2022 urina lysis , dipst ick Glucose (reference range) negati ve Not Available [facility] [address], [place], [address], 05/14/2022 14:28:29 05/14/20 22 05/14/2022 urina lysis , dipst ick Color (reference range: yellow-brown ) Yellow Not Available [facility] [address] [place] [address] [address], [place], [address], 05/14/2022 14:28:29 06/26/20 22 06/26/2022 urina lysis , dipst ick Leukocytes Modera te Not Available [facility] [address] [place], [place], [address], 06/26/2022 14:52:48 06/26/20 22 06/26/2022 urina lysis , dipst ick Nitrite negati ve Not Available [facility] [place], [place], [address], 06/26/2022 14:52:48 06/26/20 22 06/26/2022 urina lysis , dipst ick Urobilinogen .2 Not Available [facility] [place], [place], [address], 06/26/2022 14:52:48 06/26/20 22 06/26/2022 urina lysis , dipst ick Protein 100 Not Available [facility] [address] [place], [address], 06/26/2022 14:52:48 06/26/20 22 06/26/2022 urina lysis , dipst ick pH 5.0 Not Available [facility] [address] [place], [place], [address], 06/26/2022 14:52:48 06/26/20 22 06/26/2022 urina lysis , dipst ick Blood Large Not Available [facility] [address] [place], [address], 06/26/2022 14:52:48 06/26/2006/26/2022 urina lysis , dipst ick Specific [place] 1.030 Not Available [facility] [place], [address], 06/26/2022 14:52:48 06/26/20 22 06/26/2022 urina lysis , dipst ick Ketone Negati ve Not Available [facility] [place], [address], 06/26/2022 14:52:48 06/26/20 22 06/26/2022 urina lysis , dipst ick Bilirubin Negati ve Not Available [facility] [address] [place], [address], 06/26/2022 14:52:48 06/26/20 22 06/26/2022 urina lysis , dipst ick Glucose Negati ve Not Available [facility] [place], [address], 06/26/2022 14:52:48 06/26/20 22 06/26/2022 urina lysis , dipst ick Appearance Clear Not Available [facility] [place], [address], 06/26/2022 14:52:48 06/26/2006/26/2022 urina lysis , dipst ick Color Yellow Not Available [facility] [address] [place], [place], [address], 06/26/2022 14:52:48 06/08/[address], abdom en + pelvi s, w/o contr ast No observ ation record ed. [email or web address] Not Available 2021 10:23:42 Result Notes None recorded. Problems Name Problem SNOMED Code Status Onset Date Resolution Date Notes Provider Name and Address Organization Details Recorded Time Increased frequency of urination 428191122 Active 2021 Silvina becerra, CHELY - [facility] & [place] 2 08:35:49 Mixed urinary incontinence 170840426 Active 2021 Silvina becerra, CHELY - [facility] & [place] 2 08:36:15 Recurrent urinary tract infection 455010879 Active 2021 Silvina becerra, CHELY - [facility] & [place] 2 08:38:24 Nocturia 231939632 Active 2021 Silvina becerra, CHELY - [facility] & [place] 2 08:38:38 Notes:Acute cystitis with He maturia, Urinary hesitancy, Urinary retention Problem Notes None recorded. Medical Equipment None Reported. Allergies No known drug allergies Medications Name Sig Start Date Stop Date Status Note LastModified by Organization Details LastModified Time lisinopril 20 mg tablet active Not Available Not Available Not Available metoprolol succinate ER 100 mg tablet,ext ended release 24 hr active Not Available Not Available Not Available diphenoxyl ate-atropi ne 2.5 mg-0.025 mg tablet TAKE 1 TABLET BY MOUTH TWICE DAILY NEEDED FOR DIARRHEA active Not Available Not Available No t Available clopidogre l 75 mg tablet active Not Available Not Available Not Available ciprofloxa darell 500 mg tablet active Not Available Not Available Not Available Macrobid 100 mg capsule Take 1 capsule every 12 hours by oral route for 7 days. 2021 active Not Available Not Available Not Avai lable pioglitazo ne 30 mg tablet active Not Available Not Available Not Available oxybutynin chloride 5 mg tablet active Not Available Not Available No t Available ondansetro n 4 mg disintegra ting tablet 1 TABLET UNDER TONGUE EVERY 4-6 NEEDED NAUSEA active Not Available Not Available No t Available cefdinir 300 mg capsule active Not Available Not Available Not Available Estrace 0.01% (0.1 mg/gram) vaginal cream apply 1 gram Saturday- Sat- Saturday evening intravag inally as directed 2021 active Not Available Not Available Not Avai lable Tradjenta 5 mg tablet active Not Available Not Available Not Available clopidogre l bisulfate (bulk) 05/11 completed 75 mg 1 tablet once daily Not Available Not Available Not Available Paxlovid 300 mg (150 mg x 2)-100 mg tablets in a dose pack TAKE 3 TABLETS TOGETHER (TWO 150 MG NIRMATRE LVIR TABLETS AND ONE 100 MG RITONAVI R TABLET) BY MOUTH TWICE DAILY FOR 5 DAYS. active Not Available Not Available No t Available Vitals Date Recorded Body height Body mass index (BMI) Body weight Body temperature Systolic And Diastolic Provider Name and Address Organization Details Last Updated DateTime 05/14/2022 170.18 cm 23.2 kg/m2 62483.6 7 g 96.8 [degF] 122/70 mm[Hg] Silvina Beard [facility] & [place] 2 14:19:15 Date Recorded Body height Body mass index (BMI) Body weight Body temperature Systolic And Diastolic Provider Name and Address Organization Details Last Updated DateTime 06/26/2022 170.18 cm 23 kg/m2 63003.0 8 g 97.3 [degF] 122/78 mm[Hg] Tsering BRADFORD [facility] & [place] 2 14:46:04 Social History Question Answer Notes LastModified by Organizat ion Details LastModified Time Tobacco Smoking Status Current Every Day Smoker CHELY Shearer [facility] & [place] 05/11/2022 08:45:08 How Much Tobacco Do You Smoke? 1 PPD Information not available 05/11/2022 Sex: Unknown Functional Status Question Answer Note LastModified by Organizat ion Details LastModified Time Do you use any illicit or recreational drugs? No Information not available 05/11/2022 What is your level of alcohol consumption? None Information not available 05/11/2022 Mental Status None recorded. Family History Relationship Description Onset Age of this Age Resolved Age Notes LastModified by Organization Details LastModified Time Father No current problems or disability Not available 05/11 08:42:36 Mother No current problems or disability Not available 05/11 08:42:36 Medical History Condition Response Diabetes Y Heart Disease Y Gynecological HistoryNo gynecological history recorded. Obstetrics History GPAL:G 0 P 0 0 0 0 Past Encounters Encounter ID Performer Location Encounter Start Date Encounter Closed Date Diagnosis/Indication Diagnosis SNOMED-CT Code Diagnosis ICD10 Code Diagnosis Note [id number] Joanne Juarez NP, [facility] [address] [address] 05/14/2022 13:29:05 05/14/2022 14:39:10 Dysuria 02806957 R30.9 UA clear todayStart Estrace cream to use three times per weekRTC in 6 weeks for f/u Recurrent urinary tract infection 916537561 N39.0 Retention of urine 49969 4002 R33.9 Nocturia 055433413 R35.1 Atrophic vaginitis 99661 000 N95.2 [id number] Gopal Nunez MD [facility] [address] [place] [address] 06/26/2022 14:27:54 06/26/2022 15:22:53 Dysuria 55122994 R30.9 Recurrent urinary tract infection 100958627 N39.0 Retention of urine 83921 4002 R33.9 Bladder scan/ PVR 74 cc on 03/14/2022 and Nocturia 812842509 R35.1 Atrophic vaginitis 92597 000 N95.2 Health Concerns Section Related Observation LastModified by Organization Detai ls LastModified Time None Recorded Concern Status LastModified by Organization Details LastModified Time None Recorded Advance Directives Directive None Recorded Payers Insurance Date Sequence Insurance Name Policy Number Policy Howard Covered Member ID Howard Member ID Guarantor Name 05/15/2024 1 [employer] (MEDICARE REPLACEMENT/AD VANTAGE - HMO) Lida Theodore Costa [id number] Claribel Theodore Costa 05/15/2024 1 [place]MEDICARE REPLACEMENT REGIONAL PPO) [id number] Lida Theodore Costa [id number] Claribel Theodore Costa 03/07/2024 1 [employer] (MEDICARE REPLACEMENT/AD VANTAGE - HMO) Lida Theodore Costa [id number] Claribel Theodore Costa Notes Date Note Type Note Provider Name and Address Organization Details Recorded Time 05/14/2022 text/html 82 yowf RTC for 3 week f/u r/t dysuria, nocturia, and UTI. Pt had a office cysto performed on 04/25/2022 that revealed Bladder mucosal revealed a large area of patchy erythema on the right lateral bladder wall and a smaller but still prominent area patchy erythema on the left posterior wall. The findings are nonspecific and appear inflammatory. 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 Discussed potentially start estrogen cream at some point. Patient reports she continues to experience burning and itching. Reports the burning is nosed noted when she starts urinating. Reports antibiotics and peridium does not help with symptoms. Nocturia x3. Reports bowels move regularly. She denies any gross hematuria. Previous: [Return to clinic for follow-up of UTI. She was recently treated with Omnicef. She was also treated with topical lidocaine gel and peridium for comfort. PVR was 74 cc on 03/14/2022. A CT scan had showed air-fluid levels in the urinary bladder but no other significant abnormalities. A urine was sent for DNA analysis and revealed Enterococcus faecalis. Omnicef was stopped and nitrofurantoin was started on 03/16/2022. The patient had been experiencing approximately 8 weeks of UTI like symptoms. She has a history of diabetes and there was significant glucose in her urine at the time of last UA. Her predominant symptoms are urinary urgency, dysuria, nocturia, frequency, incontinence. She has a history of urinary retention in the past. She has had urethral dilations in the past. She has improved on the current medication regimen. ] Joanne Juarez, ZAID, S [address], [place], [address], [facility] [place] [facility] [place] [facility] [place] 05/14/2022 14:42:57 06/26/2022 text/html ROS as noted in the HPI Patient returns to clinic today for follow-up of dysuria, nocturia in UTIs. The patient underwent cystoscopy on 04/25/2022 which showed patchy erythema of the bladder that was nonspecific as well as postmenopausal vaginal atrophy. Patient continues to have symptoms. She has been on Estrace cream but is not see any significant change in her symptoms. Urinalysis today shows 2+ leukocytes 1+ protein large blood. Patient will at times have severe pain in her pelvic area at the onset of urination. She will at times have a sense of incomplete bladder emptying and feel like she needs to void when at times she does void minimal amounts. She is not having gross hematuria, fevers, chills. See below past medical History;Last seen on 05/14/22 for dysuria, nocturia, and UTI. Pt had a office cysto performed on 04/25/2022 that revealed Bladder mucosal revealed a large area of patchy erythema on the right lateral bladder wall and a smaller but still prominent area patchy erythema on the left posterior wall. The findings are nonspecific and appear inflammatory. 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 Discussed potentially start estrogen cream at some point. Patient reports she continues to experience burning and itching. Reports the burning is nosed noted when she starts urinating. Reports antibiotics and peridium does not help with symptoms. Nocturia x3. Reports bowels move regularly. She denies any gross hematuria.Previous: [Return to clinic for follow-up of UTI. She was recently treated with Omnicef. She was also treated with topical lidocaine gel and peridium for comfort. PVR was 74 cc on 03/14/2022. A CT scan had showed air-fluid levels in the urinary bladder but no other significant abnormalities. A urine was sent for DNA analysis and revealed Enterococcus faecalis. Omnicef was stopped and nitrofurantoin was started on 03/16/2022. The patient had been experiencing approximately 8 weeks of UTI like symptoms. She has a history of diabetes and there was significant glucose in her urine at the time of last UA. Her predominant symptoms are urinary urgency, dysuria, nocturia, frequency, incontinence. She has a history of urinary retention in the past. She has had urethral dilations in the past. She has improved on the current medication regimen. ] Gopal Nunez MD [address], [place], [address], [facility] - [place] & [place] 06/26/2022 15:25:34 OBGyn Episode No OBEpisode recorded.
--- OUTSIDE RECORDS SUMMARY | 2025-03-14 14:09 | XMS_ITS | Encounter Summary ---
Author Organization [facility] ([place], [place], [place], [place]) Address [address] [place] [address] Care Team Providers Care Robotic Maintenance Technician Name Role Phone Cate Frederick APRN Primary Care Provider [phone] Reason for Referral * Mammography (Routine) - Closed Specialty Diagnoses / Procedures Referred By Contac t Referred To Contact Diagnoses Visit for screening mammogram Procedures MM digital mammo screen bilateral Cate Frederick APRN [address] [place] [address] Phone: tel: fax: Referral ID Status Reason Start Date Expiration Date Visits Re quested Visits Authorized [id number] Closed 06/06/2023 12/03/2023 1 1 Encounter Details Date Type Department Care Team (Late st Contact Info) Description 06/06/2023 Outside Orders [facility] Central Scheduling [address] [place] [address] Cate Frederick APRN [id number] [place] [phone] Visit for screening mammogram (Primary Dx) Social History Tobacco Use Types Packs/Day Years Used Date Smoking Tobacco: Never Assessed Employment Answer Date Recorded Help finding and keeping a job Not on file 0 08/27/2023 Family and Community Support Answer Tom e Recorded Help with Day to Day Activities Not on file 08/27/2023 Feeling Lonely or Isolated Not on file 08/27 Educational Attainment Answer Date Esdras rded Speak language other than [place] at home Not on file 08/27/2023 Want help with school or training Not on file 08/27/2023 Substance Use Answer Date Recorded Used prescription meds for non-medical reasons N ot on file 08/27/2023 Used illegal drugs past 12 months Not on file 08/27/2023 Comments Unknown Sex and Gender Information Value Date Recorded Sex Assigned at Female 10/03/2023 9:11 AM CLINICAL TRIAL HEAD Legal Sex Female 5:32 PM CDT Gender Identity Female 10/03/2023 9:11 AM CLINICAL TRIAL HEAD Sexual Orientation Not on file COVID-19 Exposure Response Date Recorded In the last 10 days, have yo u been in contact with someone who was confirmed or suspected to have Coronavirus/COVID-19? No / Unsure 06/26/2023 1:32 PM EST documented as of this encounter Plan of Treatment Not on file documented as of this encounter Results * MM digital mammo screen bilateral (06/26/2023 2:20 PM EST) Anatomical Region Laterality Modality Breast Bilateral Mammography 06/26/2023 4:17 PM EST Impressions 06/26/2023 4:19 PM EST FINAL IMPRESSION: ACR BI-RADS 2: Benign finding. RECOMMENDATIONS: Routine annual screening mammography. NOTE: A LETTER INCLUDING RESULTS AND RECOMMENDATIONS WAS SENT TO THE PATIENT. DENSITY NOTIFICATION WAS PROVIDED IN THIS LETTER TO PATIENTS WITH TYPE 3 BREAST TISSUE PATTERN (51-75% of the breast composed of glandular tissue) OR TYPE 4 BREAST TISSUE PATTERN (>75% of the breast composed of glandular tissue) ALONG WITH THE RECOMMENDATION FOR A DISCUSSION BETWEEN THE PATIENT AND HER PERSONAL PHYSICIAN REGARDING HER BREAST CANCER RISK FACTORS (INCLUDING, BUT NOT LIMITED TO FAMILY HISTORY AND BREAST TISSUE DENSITY). Patient information entered into a reminder system with a target due date for the next mammogram. At our facility, a sycuan marker is positioned over a visible skin lesion and a linear marker is used to indicate a scar. A triangular marker is placed on a self reported palpable finding. Note: Mammography does not detect approximately 10-15% of breast cancers. An annual clinical breast exam by the patient's breast care physician and regular monthly self breast exams by the patient are integral parts of breast cancer screening, in addition to annual mammography. A normal mammogram does not completely exclude the presence of breast cancer, especially if there is an abnormal finding on physical exam. When clinically indicated, a biopsy should not be deferred because of a normal mammogram report. cc: Narrative 06/26/2023 4:19 PM EST PROCEDURE: Bilateral digital screening mammogram. REASON FOR EXAM: Routine screening. FAMILY HISTORY: No family history of breast cancer COMPARISON STUDY: [facility] FINDINGS: Craniocaudal and mediolateral oblique images of both breasts were obtained. Bilateral XCCL views also performed. There are scattered areas of fibroglandular density (Density Type 2). Coarse and dermal calcifications are again noted. Arterial calcifications are also present. There is no evidence of dominant mass, architectural distortion, or suspicious calcifications. No significant interval change noted. This examination was reviewed with the benefit of computer-aided detection (CAD). Cate Frederick APRN IMG MAMMOGRAPHY ORDERABLES F inal Result documented in this encounter Visit Diagnoses Diagnosis Visit for screening mammogram- Primary Visit for screening mammogram documented in this encounter Care Teams Robotic Maintenance Technician Relationship Specialty Start Date End Date Cate Frederick, [employer]PBERR[employer] CHECKER [address] [place] [address] PCP - General Family Medicine 06/26/23 documented as of this encounter
--- OUTSIDE RECORDS SUMMARY | 2025-03-14 14:09 | XMS_ITS | Clinical Summary ---
Author Organization [facility] ([place], [place], [place], [place]) Address [address] [place] [address] Care Team Providers Care Coin Purse Assembler Name Role Phone Cate Frederick APRN Primary Care Provider + [phone] Allergies Active Allergy Reactions Criticality Noted Date [...] Date Esdras rded Speak language other than Turkmen at home Not on file 08/27/2023 Want help with school or training Not on file 08/27/2023 Substance Use Answer Date Recorded Used prescription meds for non-medical reasons N ot on file 08/27/2023 Used illegal drugs past 12 months Not on file 08/27/2023 Comments No Sex and Gender Information Value Date Recorded Sex Assigned at Female 10/03/2023 9:11 AM APPLIANCE COUNSELOR Legal Sex Female 5:32 PM CDT Gender Identity Female 10/03/2023 9:11 AM APPLIANCE COUNSELOR Sexual Orientation Not on file Last Filed [...] 10/24/2023 10:00 AM EST Plan of Treatment Health Maintenance Due Date Last Done Comments DXA SCAN 1940 Diabetic Kidney Health Evalu ation (KED) 1940 Diabetic Eye Exam 1950 Depression Screening (12+) 1952 DTAP/TDAP/TD VACCINES (1 - Tdap) 1959 Shingles Vaccine (Zoster) (1 of 2) 1990 Respiratory Syncytial Virus (RSV) Adult or (1 - 1-dose 75+ series) 2015 Pneumococcal 50+ years (2 of 2 - PCV) 06/10/2020 Hemoglobin A1C 10/03/2023 COVID-19 VACCINE ( season) 2024 04/27/2021, 10/13/2020, 09/15/2020 Falls Risk Screening 08/19/2024 Medicare Initial AWV [id number] 08/20/2024 Tobacco Cessation Counseling and Screening (12+) 10/23/2024 10/24/2023 Influenza Vaccine (#1) 2025 05/09/2020, 2017 Medical Devices Implanted Type Area Jtac Device Identifier Shelf Expiration Date Model / Serial / Lot Iol Uv Clareon +20.5 [id number] - [id number] Implanted:Qty: 1 on 10/03/2023 by Ahmet Mohr MD at [facility] IMPLANTS Right: Eye JOJO 12/30/2024 [id number] / [id number] / Iol Uv Clareon +21.0 [id number] - [id number] Implanted:Qty: 1 on 10/24/2023 by Ahmet Mohr MD at [facility] IMPLANTS Left: Eye JOJO 04/02/2027 [id number] / [id number] / Stents Heart Description:X2 Insurance [place] [id number] [facility] ADV Care Teams Coin Purse Assembler Relationship Specialty Start Date End Date Cate Frederick, ELECTRIC MOTOR CONTROL ASSEMBLER [address] [place] [id number] PCP - General Family Medicine 06/26/23
--- OUTSIDE RECORDS SUMMARY | 2025-03-14 14:09 | XMS_ITS | Data Portability ---
Author Organization [facility] JACLYN Uribe KNIFLEY CLOSED Address [address] [place] [address] Care Team Providers Care [employer] Name Role Phone REEMA MCLEAN Primary Care Provider Assessment No assessment recorded. Plan of Treatment Reminders Order Date Submit Date Provider Last Modified By Organization Details Last Modified Time Details Appointments None recorded. Lab None recorded. Referral None recorded. Procedures None recorded. Surgeries None recorded. Imaging None recorded. Medication Orders fluorouraci l 5 % topical cream 2023 024 [email or web address] 8 [facility] [address], [address] [place] [address], [address], 15:48:02 Patient TargetsNo targets recorded. Patient InstructionsNo instructions recorded. Reason for Referral None Reported. Problems Name Problem SNOMED Code Status Onset Date Resolution Date Notes Provider Name and Address Organization Details Recorded Time History of malignant neoplasm of skin 248526932 Active 024 Gali Pretty [facility] 4 10:22:39 Problem Notes None recorded. Procedures Surgical History Date Name Laterality Status Provider Name and Address Organization Details Recorded Time 12/12/2023 DAK - Cryo AK completed Gali Pretty [facility] 12/12/2023 10:27:35 Imaging Results None recorded. Procedure Notes None recorded. Medical Equipment None Reported. Allergies No known drug allergies Medications Name Sig Start Date Stop Date Status Note LastModified by Organization Details LastModified Time fluorouracil 5 % topical cream twice a day x3 weeks to the backs of hands and nose 024 active Not Available Not Available Not Avai lable acetaminophen active Not Available Not Available Not Available atorvastatin active Not Available Not Available Not Available fluconazole active Not Available Not A vailable Not Available Plavix active Not Available Not Availa ble Not Available amlodipine active Not Available Not Av ailable Not Available Zocor active Not Available Not Availa ble Not Available glimepiride active Not Available Not A vailable Not Available Vitals None Recorded Social History Question Answer Notes LastModified by Organizat ion Details LastModified Time What Was The Date Of Your Most Recent Tobacco Screening? 12/12/2023 [email or web address] Information not available 12/12/2023 Sex: Unknown Functional Status Question Answer Note LastModified by Organization D etails LastModified Time Do you or have you ever used any other forms of tobacco or nicotine? No [email or web address] Information not available 12/12/2023 Mental Status None recorded. Family History Nothing Reported. Medical History Condition Response Squamous Cell Carcinoma Y Gynecological HistoryNo gynecological history recorded. Obstetrics History GPAL:G 0 P 0 0 0 0 Past Encounters Encounter ID Performer Location Encounter Start Date Encounter Closed Date Diagnosis/Indication Diagnosis SNOMED-CT Code Diagnosis ICD10 Code Diagnosis Note [id number] KEYANA MACKEY MD [facility] [address] [place] [address] 12/12/2023 09:56:03 12/12/2023 10:31:11 History of malignant neoplasm of skin 336156384 Z85.828 - No evidence of recurrence today- Call with any worrisome lesions or if treated lesions return- Return at regular intervals for skin exam as recommende d Most recent, 2019 Multiple b enign melanocytic nevi 337442140 D22.5 - Benign moles seen on exam today- SPF 30 or higher broad-spec trum sunscreen recommende d with re-applica tion every 2 hours- Discussed sun protection measures, including wide-brimm ed hat, sun-protec tive clothing, and avoidance of sun during peak hours of 10am-4pm- Avoid tanning beds as these can increase the chances of all 3 types of skin cancer- Instructed to monitor for changes and to call us for appointmen t with any changing or worrisome lesions Recommende d Amlactin BID on legs Seborrheic keratosis 394 506437 L82.1 - Benign overgrowth s of skin - Hereditary Senile angioma 2060108 I 78.1 - Benign blood vessel growths - Hereditary Solar lentigo 90304533 L 81.4 - Benign brown spots - Sun-induce d Actinic keratosis 007 L57.0 L57.8 Actinic keratoses are precancero us lesions that may progress to squamous cell carcinoma if untreated. UV light and genetics may increase risk. Treated lesions should blister, scab over, and heal within a few weeks. If treated lesion(s) does not resolve within 1-2 months, patient agrees to follow up for re-evaluat ion. Efudex (5-fluorou racil) 5% cream prescribed . Apply to areas of pre-cancer s BID for 3 weeks. Avoid eye area and allow to absorb for at least 1 hour before bedtime. Expect redness, crusting, itching, and burning. Therapy may be stopped when crusting is prominent or at any time if symptoms are intolerabl e. Can use Vaseline or OTC hydrocorti sone ointment in between applicatio ns if needed. Call the office with any concerns about symptoms as we can prescribe medication to calm the reaction if needed. Avoid sun exposure during your treatment. Can cause or bring out cold sores. Call if these arise. It will take several weeks for your skin to heal once the therapy has ended. Pigmentary change may occur. All of this explained with handout and given to pt. Photos shown to prepare patient for what skin can look like after use. Efudex has been shown to decrease the amount of AKs and prevent SCC developmen t. Will send in efudex 5% cream to use twice a day x3 weeks to the backs of hands and noseWait for LN2 sites to heal before starting Health Concerns Section Related Observation LastModified by Organization Detai ls LastModified Time None Recorded Concern Status LastModified by Organization Details LastModified Time None Recorded Advance Directives Directive None Recorded Payers Insurance Date Sequence Insurance Name Policy Number Policy Howard Covered Member ID Howard Member ID Guarantor Name 12/12/2023 1 [place]MEDICARE REPLACEMENT REGIONAL O) [id number] Claribel Skelton [id number] Claribel Skelton Notes Date Note Type Note Provider Name and Address Organization Details Recorded Time 12/12/2023 text/html ROS as noted in the HPI Here for a full body skin examination - last skin check:May 2023 - history of skin cancer - SCC - last skin cancer was in 2019 - spots of concern today: legs, hands, arms. KEYANA MACKEY MD [address] [place] [address], [phone], [facility] 12/15/2023 09:00:50 OBGyn Episode No OBEpisode recorded.
--- OUTSIDE RECORDS SUMMARY | 2025-03-14 14:09 | XMS_ITS | Encounter Summary ---
Author Organization [facility] Address [address] [place] [address] Care Team Providers Care Dulite Machine Bluer Name Role Phone Cate Frederick APRN Primary Care Provider Encounter Details Date Type Department Care Team (Late st Contact Info) Description 02/15/2025 Results Follow-Up [facility] [address] [place] [address] Mary Cross APRN [address] [place] [address] Social History Tobacco Use Types Packs/Day Years [...] Description 04/21/2025 2:20 PM EDT Office Visit [facility] [address] [place] [address] Marylou Laughlin MD [address] [place] [address] documented as of this encounter [...] documented as of this encounter Care Teams Dulite Machine Bluer Relationship Specialty Start Date End Date Cate Frederick, BUTTON TUFTER [address] [place] [address] PCP - General 02/09/22 documented as of this encounter
--- OUTSIDE RECORDS SUMMARY | 2025-03-14 14:09 | XMS_ITS | Clinical Summary ---
Author Organization [facility] Address [address] [place] [address] Care Team Providers Care Board Layer Name Role Phone Frederick, Cate MIGUEL Primary Care Provider [phone] Allergies Active Allergy Reactions Criticality Noted Date Comments Elemental Sulfur Swelling High 10/04/2022 Sulfa Antibiotics Hives 10/30/2022 Bactrim Medications clopidogrel (PLAVIX) 75 MG tablet Take 1 tablet by mouth Daily. Active linagliptin (TRADJENTA) 5 MG tablet tablet Take 1 tablet by mouth Daily. Active ondansetron ODT (ZOFRAN-ODT) [address] 1 tablet on the tongue Every 6 (Six) Hours As Needed for Nausea or Vomiting. 10 tablet 10/30/2022 3:11 PM EDT 3 Active atorvastatin (LIPITOR) 10 MG tablet Take 1 tablet by mouth Every Night. 90 tablet 3 3 Active amLODIPine (NORVASC) 5 MG tablet Take 1 tablet by mouth Daily. 90 tablet 2 3 Active diphenoxylate-atro pine (LOMOTIL) 2.5-0.025 MG per tablet Take 1 tablet by mouth 4 (Four) Times a Day As Needed for Diarrhea. Active cefdinir (OMNICEF) 300 MG capsule Take 1 capsule by mouth 2 (Two) Times a Day. Active fluconazole (DIFLUCAN) 200 MG tablet Take 1 tablet by mouth Take As Directed. Active ketorolac (ACULAR) 0.5 % ophthalmic solution Administer 1 drop to both eyes 4 (Four) Times a Day. 4 Active metoprolol succinate XL (TOPROL-XL) 100 MG 24 hr tablet Take 1 tablet by mouth Daily. Active timolol (TIMOPTIC) 0.25 % ophthalmic solution Administer 1 drop to both eyes Daily. 4 Active sacubitril-valsart an (Entresto) 24-26 MG tablet Take 1 tablet by mouth 2 (Two) Times a Day. 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 of duck[place] heart without angina pectoris 11/12/2022 Dyspnea on exertion 11/12/2022 Heart murmur 11/12/2022 Mixed hyperlipidemia 11/12/2022 Primary hypertension 11/12/2022 Resolved Problems Problem Noted Date Diagnosed Date Resolved Date Bradycardia 01/18/2023 01/21/2023 Family History Medical History Relation Name Comments Heart attack Brother 1 No Known Problems Brother 2 Heart attack Father No Known Problems Maternal Grandfather No Known Problems Maternal Grandmother No Known Problems Mother No Known Problems Paternal Grandfather Stroke Paternal Grandmother Cancer Sister Relation Name Status Comments Brother 1 Brother 2 Alive Father Maternal Grandfather Maternal Grandmother Mother Paternal Grandfather Paternal Grandmother Sister Social History Tobacco Use Types Packs/Day Years Used Date Smoking Tobacco: Every Day Cigarettes Started: 1956 Smokeless Tobacco: Never Tobacco Cessation:Ready to Q uit: Not Asked; Counseling Given: Not Answered Comments:3-4 cigs daily Passive Exposure Comments:1 cigarette per day Alcohol Use Standard Drinks/Week Comments Not Currently 0 (1 standard drink = 0.6 oz pur e alcohol) AUDIT-C Answer Date Recorded Q1: How often do you have a drink containing alcohol? Never 01/19/2023 Q2: How many drinks containi ng alcohol do you have on a typical day when you are drinking? Patient does not drink Q3: How often do you have si x or more drinks on one occasion? Never 01/19/2023 Abuse Screen Answer Date Recorded Unsafe at Home or Work/School Not on file Feels Threatened by Someone? Not on file Does Anyone Keep You from Co ntacting Others or Doint Things Outside the Home? Not on file 02/03/2024 Physical Sign of Abuse Present Not on file 0 02/03/2024 Housing Stability Answer Date Recorded Current Living Arrangements Not on file 01/17 Potentially Unsafe Housing Conditions Not on loren e 02/03/2024 Family and Community Support Answer Tom e Recorded Help with Day-to-Day Activities Not on file 05/28/2023 Lonely or Isolated Not on file 05/28/2023 Employment Answer Date Recorded Do you want help finding or keeping work or a madelyn b? Not on file 05/28/2023 Disabilities Answer Date Recorded Concentrating, Remembering, or Making Decisions Difficulty Not on file 02/03/2024 Doing Errands Independently Difficulty Not on fi le 02/03/2024 Education Answer Date Recorded Help with school or training? Not on file Preferred Language Not on file 05/28/2023 Comments No Sex and Gender Information Value Date Recorded Sex Assigned at Not on file Legal Sex Female 2:08 PM EST Gender Identity Not on file Sexual Orientation Not on file Last Filed Vital Signs Vital Sign Reading Time Taken Comments Blood Pressure 148/70 11/04/2023 11:30 AM EDT Pulse 76 11/04/2023 11:30 AM EDT Temperature 36.1 C (97 F) 02/05/2023 1:33 PM EDT Respiratory Rate 16 02/05/2023 1:33 PM EDT Oxygen Saturation 96% 11/04/2023 11:30 AM EDT Inhaled Oxygen Concentration - - Weight 64.2 kg (141 lb 9.6 oz) 11/04/2023 11:30 AM EDT Height 162.6 cm (5' 4 ) 11/04/2023 11:30 AM EDT Body Mass Index 24.31 11/04/2023 11:30 AM EDT Plan of Treatment Health Maintenance Due Date Last Done Comments DXA SCAN 1940 LIPID PANEL 1940 DIABETIC EYE EXAM 1950 DIABETIC FOOT EXAM 1950 URINE MICROALBUMIN-CREATININ E RATIO (uACR) 1950 TDAP/TD VACCINES (1 - Tdap) 1959 ZOSTER VACCINE (1 of 2) 1990 RSV Vaccine - Adults (1 - 1- dose 75+ series) 2015 Pneumococcal Vaccine 50+ (2 of 2 - PCV) 06/10/2020 06/10/2019 ANNUAL WELLNESS VISIT 10/29/2022 HEMOGLOBIN A1C 07/21/2023 01/19/2023, 10/30/2022 COVID-19 Vaccine (6 - 2023-2 5 season) 2024 12/20/2022, 03/29/2022, 04/27/2021, Additional history exists INFLUENZA VACCINE 05/19/2025 05/15/2022, , 05/09/2020, Additional history exists Medical Devices Implanted Type Area Sheet Metal Journeyman Device Identifier Shelf Expiration Date Model / Serial / Lot Bone Filler Void Cerament 10ml - [id number] Implanted:Qty: 1 on 10/30/2022 by Jg Natarajan Jr., MD at [facility] Implant Right: Hand BONE SUPPORT 03/18/2025 [id number] / / [id number] Plt Geminus Nrw 3h Rt - [id number] Implanted:Qty: 1 on 10/30/2022 by Jg Natarajan Jr., MD at [facility] Implant Right: Hand SKELETAL DYNAMICS [id number] / / Scrw Geminus Pa Nl Ti 3.5x12mm - [id number] Implanted:Qty: 1 on 10/30/2022 by Jg Natarajan Jr., MD at [facility] Implant Right: Hand SKELETAL DYNAMICS [id number] S / / Scrw Geminus Pa Nl 3ti .5x13mm - [id number] Implanted:Qty: 1 on 10/30/2022 by Jg Natarajan Jr., MD at [facility] Implant Right: Hand SKELETAL DYNAMICS [id number] S / / Peg Volr Geminus Smoth Lk Ti 2x16mm - [id number] Implanted:Qty: 1 on 10/30/2022 by Jg Natarajan Jr., MD at [facility] Implant Right: Hand SKELETAL DYNAMICS [id number] S / / Peg Volr Geminus Smoth Lk Ti 2x18mm - [id number] Implanted:Qty: 1 on 10/30/2022 by Jg Natarajan Jr., MD at [facility] Implant Right: Hand SKELETAL DYNAMICS [id number] S / / Peg Volr Geminus Smoth Lk Ti 2x21mm - [id number] Implanted:Qty: 1 on 10/30/2022 by Jg Natarajan Jr., MD at [facility] Implant Right: Hand SKELETAL DYNAMICS [id number] S / / Peg Volr Geminus Smoth Lk Ti 2x20mm - [id number] Implanted:Qty: 1 on 10/30/2022 by Jg Natarajan Jr., MD at [facility] Implant Right: Hand SKELETAL DYNAMICS [id number] S / / Peg Volr Geminus Smoth Lk Ti 2x17mm - [id number] Implanted:Qty: 1 on 10/30/2022 by Jg Natarajan Jr., MD at [facility] Implant Right: Hand SKELETAL DYNAMICS [id number] S / / Scrw Morgan Geminus Lk Ti 3.5x12mm - [id number] Implanted:Qty: 1 on 10/30/2022 by Jg Natarajan Jr., MD at [facility] Implant Right: Hand SKELETAL DYNAMICS [id number] S / / Peg Volr Geminus Smoth Lk Ti 2x19mm - [id number] Implanted:Qty: 1 on 10/30/2022 by Jg Natarajan Jr., MD at [facility] Implant Right: Hand SKELETAL DYNAMICS [id number] S / / Explanted Type Area Sheet Metal Journeyman Device Identifier Shelf Expiration Date Model / Serial / Lot Kwire Std Tp [id number] - [id number] Explanted:Qty: 2 on 10/30/2022 at [facility] Implant Right: Hand SKELETAL DYNAMICS [id number] / / Kwire Std/Tp .3m163ym - [id number] Explanted:Qty: 2 on 10/30/2022 at [facility] Implant Right: Hand SKELETAL DYNAMICS [id number] / / Procedures Procedure Name Priority Date/Time Associated Diagnosis Comments HEMOGLOBIN A1C Routine 01/19/2023 5:29 AM EDT from Last 3 Months or Most Recently Relevant to Health Maintenance Results * (ABNORMAL) Hemoglobin A1c (01/19/2023 5:29 AM EDT) Hemoglobin A1C 5.70(H) 4.80 - 5.60 % 01/19/2023 9:49 AM EDT [facility] Blood Venipuncture / Unknown 01/19/2023 5:29 AM EDT 01/19/2023 7:07 AM EDT Narrative [facility] - 01/19/2023 9:49 AM EDT Hemoglobin A1C Ranges: Increased Risk for Diabetes 5.7% to 6.4% Diabetes >= 6.5% Diabetic Goal < 7.0% us Betzaida Musa MUSIC DEPARTMENT CHAIR LAB BLOOD ORDERABLES Final Result [facility]
[address] [phone] from Last 3 Months or Most Recently Relevant to Health Maintenance Insurance Advance Directives * CPR (Attempt to Resuscitate) (Latest Code Status on File) Date Activated Date Inactivated Comments 01/18/2023 11:17 PM 01/21/2023 1:24 PM Question Answer Comments Code Status (Patient has no pulse and is not breathing): CPR (Attempt to Resuscitate) Medical Interventions (Patie nt has pulse or is breathing): Full Support Level Of Support Discussed With: Patient Care Teams Board Layer Relationship Specialty Start Date End Date Cate Frederick APRN [address] [place] [address] PCP - General Nurse Practitioner 10/25/22
--- OUTSIDE RECORDS SUMMARY | 2025-03-14 14:10 | XMS_ITS | Encounter Summary ---
Author Organization [facility] Address [address] [place] [place] [address] Care Team Providers Care Regasification Plant Operator Name Role Phone Cate Frederick APRN Primary Care Provider [phone] Reason for Referral * Consultation (Routine) - Authorized Specialty Diagnoses / Procedures Referred By Ольга t Referred To Contact Infectious Diseases Diagnoses Candiduria Radha glabrata infection Mary Cross APRN [address] [address] Phone: tel: fax: Referral ID Status Reason Start Date Expiration Date Visits Requested Visits Authorized [id number] Authorized Specialty Services Required 03/12/2025 09/11/2026 1 1 Encounter Details Date Type Department Care Team (Late st Contact Info) Description 03/12/2025 Orders Only [facility] [address] [place] [address] Mary Cross APRN [id number] [place] [address] Candiduria (Primary Dx); Radha glabrata infection Social [...] AM EST documented as of this encounter Miscellaneous Notes * Progress Notes - Mary Cross APRN - 03/12/2025 8:45 AM EDT Referred to [facility] ID for no change in symptoms with ampho B instillations documented in this encounter Plan of Treatment Upcoming Encounters Date Type Department Care Team (Late st Contact Info) Description 04/21/2025 2:20 PM EDT Office Visit [facility] [address] [place] [address] Marylou Laughlin MD [address] [place] [address] Scheduled Referrals Name Type Priority Associated Diagnoses Orde r Schedule Infectious Disease Outpatient Referral Routine Candiduria Radha glabrata infection Expected: 03/12/2025 (Approximate), Expires: 09/13/2026 documented as of this encounter Visit Diagnoses Diagnosis Candiduria- Primary Radha glabrata infection Candidiasis of unspecified site documented in this encounter Additional Health Concerns Assessment Noted Time PHQ-9 Depression Total Score: 24 023 12:02 PM EST A fall risk assessment has been complete d for the patient 02/24/2025 2:21 PM EDT A Body Mass Index follow-up plan has been documented for the patient 02/26/2025 1:54 PM EDT documented as of this encounter Care Teams Regasification Plant Operator Relationship Specialty Start Date End Date Cate Frederick APRN [address] [place] [address] PCP - General 02/09/22 documented as of this encounter
--- OUTSIDE RECORDS SUMMARY | 2025-03-14 14:10 | XMS_ITS | Encounter Summary ---
Author Organization [facility] Address [address] [place] [address] Care Team Providers Care Director Of Guidance Name Role Phone Cate Frederick APRN Primary Care Provider [phone] Encounter Details Date Type Department Care Team (Latest Contact Info) Description 02/25/2025 Travel Social History Tobacco Use Types Packs/Day [...] Description 04/21/2025 2:20 PM EDT Office Visit [place] [facility] [address] [place] [address] Marylou Laughlin MD [address] [place] [address] documented as of this encounter [...] documented as of this encounter Care Teams Director Of Guidance Relationship Specialty Start Date End Date Cate Frederick, MIGUEL [address] [place] [address] PCP - General 02/09/22 documented as of this encounter
--- OUTSIDE RECORDS SUMMARY | 2025-03-14 14:10 | XMS_ITS | Encounter Summary ---
Author Organization Healthcare Address [address] [place] [address] Care Team Providers Care Liability Analyst Name Role Phone Cate Frederick APRN Primary Care Provider Encounter Details Date Type Department Care Team (Late st Contact Info) Description 02/16/2025 Orders Only [facility] [address], [address] [place] [address] Mary Cross APRN [address] [place] [address] Radha glabrata infection (Primary Dx); Candiduria Social History Tobacco Use Types Packs/Day Years [...] Progress Notes - Mary Cross APRN - 02/16/2025 2:29 PM EDT Patient agrees with amphotericin B instillations x 5-7 days to clear candiduria prior to cystoscopywith Dr. Laughlin documented in this encounter Plan of Treatment Upcoming Encounters Date Type Department Care Team (Late st Contact Info) Description 04/21/2025 2:20 PM EDT Office Visit [facility] [address] [place] [address] Marylou Laughlin MD [address] [place] [address] documented as of this encounter Visit Diagnoses Diagnosis Radha glabrata infection- Primary Candidiasis of unspecified site Candiduria documented in this encounter Additional Health Concerns Assessment Noted Time PHQ-9 Depression Total Score: 24 023 12:02 PM EST A fall risk assessment has been complete d for the patient 02/11/2025 10:32 AM EDT A Body Mass Index follow-up plan has been documented for the patient 02/11/2025 12:46 PM EDT documented as of this encounter Care Teams Liability Analyst Relationship Specialty Start Date End Date Cate Frederick APRN [address] [place] [address] PCP - General 02/09/22 documented as of this encounter
--- OUTSIDE RECORDS SUMMARY | 2025-03-14 14:10 | XMS_ITS | Encounter Summary ---
Author Organization [facility] Address [address] [place] [address] Care Team Providers Care Ground Transportation Operator Name Role Phone Cate Frederick APRN Primary Care Provider [phone] Reason for Visit * Reason Onset Date Comments HCN - Patient Message 03/11/2025 Missed jennifer l Encounter Details Date Type Department Care Team (Late st Contact Info) Description 03/11/[address] [facility] [address] [place] [address] Mary Cross, EDUCATION TRAINER [address] [place] [address] HCN - Patient Message (Missed call ) Social History Tobacco Use Types Packs/Day [...] encounter Miscellaneous Notes * Telephone Encounter - Gracia Valadez - 03/11/2025 1:36 PM EDT Patient Phone Message Reason for Call: Pt daughter requesting a return call from Chelsea please. Best contact number and optimal time of day to reach caller: [phone] Note: Please do not reply to this [...] Description 04/21/2025 2:20 PM EDT Office Visit [facility] [address] [place] [address] Marylou Laughlin MD [address] [place] [address] documented as of this encounter [...] documented as of this encounter Care Teams Ground Transportation Operator Relationship Specialty Start Date End Date Cate Frederick APRN [address] [place] [address] PCP - General 02/09/22 documented as of this encounter
--- OUTSIDE RECORDS SUMMARY | 2025-03-14 14:10 | XMS_ITS | Clinical Summary ---
Author Organization [facility] Address [address] [place] [address] Care Team Providers Care Wellness Nurse Name Role Phone Cate Frederick APRN Primary Care Provider Allergies Active Allergy Reactions Criticality Noted Date Comments Penicillins Itching Medium 05/15/2021 Sulfa Drugs Hives Medium 10/30/2022 Bactrim Medications clopidogrel (Plavix) 75 MG tablet Take by mouth 1 (one) time each day. 03/12/20 22 Active diphenoxylate-atro pine (Lomotil) 2.5-0.025 MG tablet Take by mouth if needed. 12/23/19 22 Active Tradjenta 5 MG tablet Take by mouth 1 (one) time each day. 04/16/20 22 Active lisinopril 20 MG tablet Take by mouth 1 (one) time each day. 02/17/20 22 Active metoprolol succinate XL (Toprol-XL) 100 MG 24 hr tablet 04/16/20 22 Active pioglitazone (Actos) 30 MG tablet 04/16/20 22 Active estradiol (Estrace) 0.1 MG/GM vaginal creamIndications:V ulvovaginal Atrophy Use nightly x 2 weeks, then use 3x weekly 42.5 g 3 10/04/19 23 Active Additional Information Patient not taking.Reported on 02/26/2025 ondansetron ODT (Zofran-ODT) [address] 1 tablet (4 mg) under the tongue if needed. 10/31/19 Active simvastatin (Zocor) 20 MG tablet Take 1 tablet (20 mg) by mouth 1 (one) time each day. Active diclofenac (Voltaren) 1 % topical gel 2 g 4 (four) times a day. TO AFFECTED AREA 07/05/20 Active bethanechol (Urecholine) 25 MG tablet Take 1 tablet (25 mg) by mouth 3 (three) times a day. Active amitriptyline (Elavil) 50 MG tablet TAKE ONE TABLET BY MOUTH EVERY DAY AT BEDTIME, FOR mood Active atorvastatin (Lipitor) 10 MG tablet Take 1 tablet by mouth nightly. 04/29/20 Active digoxin (Lanoxin) 125 MCG tablet Activ e glipiZIDE XL 5 MG 24 hr tablet TAKE ONE TABLET BY MOUTH EVERY MORNING FOR DIABETES Active Lantus SoloStar 100 UNIT/ML injection pen Inject 20 units every day by subcutaneous route at bedtime, for diabetes. Active losartan (Cozaar) 25 MG tablet 01/15/20 Active rivaroxaban (Xarelto) 2.5 MG tablet Take 1 tablet by mouth 2 times a day. Active cephalexin (Keflex) 500 MG capsule 02/16/20 Active Hospital, Clinic, or Other Facility Administered Medication Ordered Dose Route Frequency Start Date End Date Status amphotericin B conventional (Fungizone) injection 15 mgIndications:Radha glabrata infection,Candiduria 15 mg IS Daily 02/16/2025 02/16/2025 Disc ontinued amphotericin B conventional (Fungizone) injection 15 mgIndications:Radha glabrata infection,Candiduria 15 mg IS Daily 02/17/2025 02/24/2025 Ende d amphotericin B conventional (Fungizone) injection 15 mgIndications:Candidu rubio 15 mg IS Once 02/17/2025 02/17/2025 Ended lidocaine PF (Xylocaine) 2 % injection 300 mgIndications:Radha glabrata infection 300 mg OTHER Once 02/18/2025 02/18/2025 Ended lidocaine (Xylocaine) 2 % injection 300 mgIndications:Radha glabrata infection 300 mg IS Once 02/22/2025 02/22/2025 Ended lidocaine PF (Xylocaine) 2 % injection 300 mgIndications:Rdaha glabrata infection 300 mg OTHER Once 02/23/2025 02/23/2025 Ended lidocaine (Xylocaine) 2 % injection 300 mgIndications:Recurre nt UTI 300 mg IS Once 02/24/2025 02/24/2025 Ended amphotericin B conventional (Fungizone) injection 15 mgIndications:Recurre nt UTI 15 mg IS Once 02/24/2025 02/24/2025 Ended lidocaine (Xylocaine) 2 % injection 300 mgIndications:Candidu rubio,Radha glabrata infection 300 mg IS Once 02/25/2025 02/25/2025 Ended amphotericin B conventional (Fungizone) injection 15 mgIndications:Candidu rubio,Radha glabrata infection 15 mg IS Once 02/25/2025 02/25/2025 Ended amphotericin B conventional (Fungizone) injection 15 mgIndications:Candidu rubio 15 mg IS Once 02/26/2025 02/26/2025 Ended lidocaine PF (Xylocaine) 2 % injection 300 mgIndications:Candidu rubio 300 mg OTHER Once 02/26/2025 02/26/2025 Ended Active Problems Problem Noted Date Diagnosed Date Chronic ulcerating interstitial cystitis 025 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 Bladder pain 07/17/2023 Difficulty urinating 06/28/2023 Candiduria 01/16/2023 Nodule of kidney 01/16/2023 Recurrent UTI 10/04/2022 Incomplete emptying of bladder 10/04/2022 Atrophic vaginitis 10/04/2022 Urinary frequency 10/04/2022 Urinary urgency 10/04/2022 Encounters Date Type Department Care Team Description 03/12/2025 Orders Only [facility] [address] Mary Cross APRN Candiduria (Primary Dx); Radha glabrata infection 03/11/2025 Telephone [facility] [address] Mary Cross APRN HCN - Patient Message (Missed call ) 03/09/2025 Telephone [facility] [address] Cross, Mary E, CAN RECONDITIONER HCN Clinical Concern/Question 03/05/2025 Telephone [facility] [address], [address] [place] [address] Dayana Tavera 03/01/2025 Results Follow-Up [facility] [address], [address] [place] [address] Soha Gomez, MIGUEL, DNP 02/26/2025 1:15 PM EDT Clinical Support [facility] [address], [address] [place] [address] Chelsea Cole LPN Candiduria (Primary Dx) 02/26/2025 Travel 02/25/2025 1:15 PM EDT Clinical Support [facility] [address], [address] [place] [address] Marek Bello Candiduria (Primary Dx); Radha glabrata infection 02/25/2025 Travel 02/24/2025 1:30 PM EDT Clinical Support [facility] [address], [address] [place] [address] Germaine Francisco LPN Recurrent UTI (Primary Dx) 02/24/2025 Travel 02/23/2025 1:15 PM EDT Clinical Support [facility] [address], [address] [place] [address] Chelsea Cole LPN Radha glabrata infection (Primary Dx) 02/23/2025 Travel 02/22/2025 1:15 PM EDT Clinical Support [facility] [address], [address] [place] [address] Chelsea Cole LPN Radha glabrata infection (Primary Dx) 02/22/2025 Travel 02/18/2025 11:00 AM EDT Procedure Visit [facility] [address] [place] [address] Chelsea Cole LPN Radha glabrata infection (Primary Dx) 02/18/2025 Travel 02/17/2025 9:40 AM EDT Procedure Visit [facility] [address], [address] [place] [address] Mary Cross APRN Candiduria (Primary Dx); Radha glabrata infection 02/17/2025 Travel 02/16/2025 Orders Only [facility] [address], [address] [place] [address] Mary Cross APRN Radha glabrata infection (Primary Dx); Candiduria 02/15/2025 Results Follow-Up [facility] [address], [address] [place] [address] Mary Cross APRN 02/11/2025 10:20 AM EDT Office Visit [facility] [address], [address] [place] [address] Mary Cross APRN Recurrent UTI (Primary Dx); Bladder pain; Chronic ulcerating interstitial cystitis 02/11/2025 Travel 02/02/2025 Telephone [facility] [address], [address] [place] [address] Mary Cross APRN HCN - Patient Message (Call request ) from Last 3 Months Family History Medical History Relation Name Comments No Known Problems Father No Known Problems Maternal Grandfather No Known Problems Maternal Grandmother No Known Problems Mother No Known Problems Paternal Grandfather No Known Problems Paternal Grandmother Anesthesia problems Neg Hx Malig Hyperthermia Neg Hx Relation Name Status Comments Father Maternal Grandfather Maternal Grandmother Mother Paternal Grandfather Paternal Grandmother Social History Tobacco Use Types Packs/Day Years [...] Orientation Straight 08/01/2023 11 :42 AM EST Last Filed Vital Signs Vital Sign Reading Time Taken Comments Blood Pressure 139/77 02/26/2025 1:19 PM EDT Pulse 66 02/26/2025 1:19 PM EDT Temperature 36.4 C (97.6 F) 08/27/2023 1:15 PM EST Respiratory Rate 22 08/27/2023 1:30 PM EST Oxygen Saturation 98% 08/27/2023 1:30 PM EST Inhaled Oxygen Concentration - - Weight 62.1 kg (137 lb) 02/25/2025 1:21 PM EDT Height 167.6 cm (5' 6 ) 02/25/2025 1:21 PM EDT Body Mass Index 22.11 02/25/2025 1:21 PM EDT Plan of Treatment Upcoming Encounters Date Type Department Care Team (Late st Contact Info) Description 04/21/2025 2:20 PM EDT Office Visit [place] [facility] [address], [address] [place] [address] Marylou Laughlin MD [address] [place] [address] Health Maintenance Due Date Last Done Comments [facility]-Bone Density Scan 1940 [facility]-Medicare Annual Wellness (AWV) 1940 [facility]-/Child/Adol SDOH Screenings 1940 [facility]- SDOH Screenings 1958 [facility]-Adult SDOH Screenings 1958 [facility]-DTaP,Tdap,and Td Vaccines (1 - Tdap) 1959 [facility]-Zoster Vaccines (1 of 2) 1990 [facility]-RSV Vaccine: 60+ Years or (1 - 1-dose 75+ series) 2015 [facility]-Pneumococcal Vaccine: 50+ Years (2 of 2 - PCV) 06/10/2020 06/10/2019 [id number] Vaccine ( season) 2024 03/29/2022, 04/27/2021, 10/13/2020, Additional history exists [facility]-Influenza Vaccine (#1) 2025 06/04/2024, [facility]-Depression Screening 02/24/2026 02/24/2025, 06/20 [facility]-Hepatitis A Vaccines Aged Out 07/25/2019, 01/17 No longer eligible based on patient's age to complete this topic [facility]-Diabetes: Hemoglobin A1C Discontinued 01/19/2023, 10/30/2022 HPV Vaccines Aged Out No longer eligi ble based on patient's age to complete this topic [facility]-HIB Vaccines Aged Out No longer e ligible based on patient's age to complete this topic [facility]-IPV Vaccines Aged Out No longer e ligible based on patient's age to complete this topic [facility]-Rotavirus Vaccines Aged Out No lo nger eligible based on patient's age to complete this topic Procedures Procedure Name Priority Date/Time Associated Diagnosis Comments URINALYSIS, MICROSCOPIC Routine 02/23/2025 1:48 PM EDT Radha glabrata infection URINE CULTURE Routine 02/23/2025 1:48 PM EDT Radha glabrata infection FUNGAL CULTURE, ROUTINE Routine 02/23/2025 1:48 PM EDT Radha glabrata infection POCT URINALYSIS DIPSTICK Routine 02/17/2025 9:56 AM EDT URINALYSIS, MICROSCOPIC Routine 02/11/2025 12:07 PM EDT Bladder pain Chronic ulcerating interstitial cystitis FUNGAL CULTURE, ROUTINE Routine 02/11/2025 12:07 PM EDT Bladder pain Chronic ulcerating interstitial cystitis URINE CULTURE Routine 02/11/2025 12:07 PM EDT Bladder pain Chronic ulcerating interstitial cystitis POC US BLADDER SCAN FOR VOLUME Routine 02/11/2025 10:35 AM EDT Recurrent UTI POCT URINALYSIS DIPSTICK Routine 02/11/2025 10:24 AM EDT from Last 3 Months Results * (ABNORMAL) Urinalysis, Microscopic (02/23/2025 1:48 PM EDT) Only the most recent of2 resultswithin the time period is included. RBC, Urine 4 - 10(A) 0 to 3 /HPF LAB URINALYSIS - AUTOMATED METHOD 02/23/2025 6:51 PM EDT [facility] WBC, Urine >50(A) 0 to 5 /HPF LAB URINALYSIS - AUTOMATED METHOD 02/23/2025 6:51 PM EDT [facility] Squamous Epithelial Cells 0 - 2 0 to 5 /HPF LAB URINALYSIS - AUTOMATED METHOD 02/23/2025 6:51 PM EDT [facility] Hyaline Casts 0 - 2 0 to 5 /LPF LAB URINALYSIS - AUTOMATED METHOD 02/23/2025 6:51 PM EDT [facility] Bacteria, Urine Negative Negative LAB URINALYSIS - AUTOMATED METHOD 02/23/2025 6:51 PM EDT [facility] Urine Urine specimen obtained by clean catch procedure / Unknown Non-blood Collection / Unknown 02/23/2025 1:48 PM EDT 02/23/2025 4:41 PM EDT Mary Cross APRN LAB URINE ORDERABLES Final Result [facility] [address] [place] [address] * (ABNORMAL) Fungal Culture, Routine (02/23/2025 1:48 PM EDT) Only the most recent of2 resultswithin the time period is included. Culture Heavy Growth Radha glabrata(A) 03/03/2025 9:36 AM EDT [facility] Comment: This isolate has been identified using the FDA Approved [employer] System Edited result: Previously reported as Yeast on 02/26/2025 at 0938 EDT. Urine Urine specimen obtained by clean catch procedure / Unknown Non-blood Collection / Unknown 02/23/2025 1:48 PM EDT 02/23/2025 4:41 PM EDT us Mary Cross APRN LAB MICROBIOLOGY - GENERAL ORDERABLES Final Result Performing Organization Address City/[facility] [place] [address] * Urine Culture (02/23/2025 1:48 PM EDT) Only the most recent of2 resultswithin the time period is included. Culture No growth at day 1 02/25/2025 11:16 AM EDT [facility] Urine Urine specimen obtained by clean catch procedure / Unknown Non-blood Collection / Unknown 02/23/2025 1:48 PM EDT 02/23/2025 4:41 PM EDT us Mary Cross APRN LAB MICROBIOLOGY - GENERAL ORDERABLES Final Result Performing Organization Address [facility] [place] [address] * (ABNORMAL) POCT URINALYSIS DIPSTICK (02/17/2025 9:56 AM EDT) Only the most recent of2 resultswithin the time period is included. POCT Urine Color Yellow 02/17/2025 9:58 AM EDT [facility] POCT Urine Clarity Clear 02/17/2025 9:58 AM EDT [facility] POCT Urine Glucose >=1000(A) Negative mg/dL 02/17/2025 9:58 AM EDT [facility] POCT Urine Bilirubin Negative Negative mg/dL 02/17/2025 9:58 AM EDT [facility] POCT Urine Ketones Trace(A) Negative mg/dL 02/17/2025 9:58 AM EDT [facility] POCT Urine Specific [place] 1.025 1.005 - 1.030 02/17/2025 9:58 AM EDT [facility] POCT Urine Blood Large(A) Negative 02/17/2025 9:58 AM EDT [facility] POCT pH, Urine 5.5 5.0 - 8.0 02/17/2025 9:58 AM EDT [facility] POCT Protein, Urine >=300(A) Negative mg/dL 02/17/2025 9:58 AM EDT [facility] POCT Urobilinogen, Urine 0.2 0.2, 1.0 EU/dL 02/17/2025 9:58 AM EDT [facility] POCT Nitrite, Urine Negative Negative 02/17/2025 9:58 AM EDT [facility] POCT Urine Leukocyte Esterase Small(A) Negative 02/17/2025 9:58 AM EDT [facility] Urine 02/17/2025 9:56 AM EDT 02/17/2025 9:58 AM EDT us Mary Cross APRN LAB POINT OF CARE TEST DOCKED DEVICE UNSOLICITED RESULTS Final Result Performing Organization Address City/State/[facility] de Phone Number [facility] [address], [place] * POC US Bladder Volume (02/11/2025 10:35 AM EDT) Urine, Volume 1 mL IMAGING Anatomical Region Laterality Modality Other us Mary Cross APRN IMG POINT OF CARE ULTRASOU ND Final Result from Last 3 Months Insurance [employer] MEDICARE Care Teams Wellness Nurse Relationship Specialty Start Date End Date Cate Frederick APRN [address] [place] [address] PCP - General 02/09/22
--- OUTSIDE RECORDS SUMMARY | 2025-03-14 14:10 | XMS_ITS | Encounter Summary ---
Author Organization [facility] Address [address] [place] [address] Care Team Providers Care Bar Examiner Name Role Phone Cate Frederick APRN Primary Care Provider Encounter Details Date Type Department Care Team (Late st Contact Info) Description 03/01/2025 Results Follow-Up [place] [facility] [address] [place] [address] Soha Gomez APRN, DNP [address] [place] [address] Social History Tobacco Use Types [...] Description 04/21/2025 2:20 PM EDT Office Visit [place] [facility] [address] [place] [address] Marylou Laughlin MD [address] [place] [address] documented as of this encounter [...] as of this encounter Care Teams Bar Examiner Relationship Specialty Start Date End Date Cate Frederick, MIGUEL [address] [place] [address] PCP - General 02/09/22 documented as of this encounter
--- OUTSIDE RECORDS SUMMARY | 2025-03-14 14:10 | XMS_ITS | Data Portability ---
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 Plan of Treatment Reminders Order Date Submit Date Provider Last Modified By Organization Details Last Modified Time Details Appointments ANNUAL EXAM 2024 01:00P Jacqui Frederick APRN Not available Not available Not available Lab vaginal pathogens panel, LAI+probe , vaginal fluid 2024 025 [place] [facility] ([place]), [address] [place] [address], [id number], 01/08/2025 08:10:46 culture, urine 2024 025 [place] [facility] [address] [place] [address], [id number], 01/08/2025 08:10:47 urinalysi s, dipstick 2024 025 [email or web address] [facility], [address] [place] [address], [place], [address], 01/06/2025 10:28:06 basic metabolic 1998 panel, serum or plasma 2024 025 [email or web address] [facility], [address] [place] [address], [address], 02/17/2025 13:16:47 gastroint estinal pathogens DNA + RNA panel, LAI+non-p robe, stool 2024 025 [email or web address] [facility] [address] [facility], [place], [address], 02/17/2025 13:16:47 HbA1c (hemoglob in A1c), blood [address], [address], 12/23/2024 10:47:45 glucose, fingersti ck, blood [address], [address], 11/10/2024 11:24:12 HbA1c (hemoglob in A1c), blood [address], [address], 09/29/2024 12:15:59 glucose, fingersti ck, blood [address], [address], 09/29/2024 12:15:59 Referral podiatris t referral - Diabetic foot care; first available appt 2024 025 [facility], [address], [place], [address], 02/19/2025 09:27:23 Procedures None recorded. Surgeries None recorded. Imaging CT, abdomen + pelvis, w/ contrast - BMP to be drawn at [facility] for contrast day of scan. 2024 025 [facility] (Scheduling), [address], [place], [address], 01/21/2025 12:22:27 Medication Orders fluconazo le 100 mg tablet 2024 025 [facility], [address] [place] [address], [address], 12/23/2024 16:10:39 Lantus Solostar U-100 Insulin 100 unit/mL (3 mL) subcutane ous pen 2024 025 [facility], [address] [place] [address], [address], 12/23/2024 11:03:38 cyanocoba nicolle (vit B-12) 1,000 mcg/mL injection solution 2024 025 Not available 12/23/2024 10:47:44 colchicin e 0.6 mg tablet 2024 025 [facility], [address] [place] [address], [address], 12/23/2024 10:38:05 amitripty line 50 mg tablet 2024 025 [facility], [address] [place] [address], [address], 12/02/2024 11:28:29 cephalexi n 500 mg capsule 2024 025 [facility], [address] [place] [address], [address], 12/23/2024 10:38:07 cyanocoba nicolle (vit B-12) 1,000 mcg/mL injection solution 2024 025 [email or web address] Not available 11/10/2024 11:25:29 Tradjenta 5 mg tablet 2024 025 [facility], [address] [place] [address], [address], 11/27/2024 17:40:22 Lantus Solostar U-100 Insulin 100 unit/mL (3 mL) subcutane ous pen 2024 025 [facility], [address] [place] [address], [address], 01/19/2025 16:51:31 glipizide ER 5 mg tablet, extended release 24 hr 2024 025 [facility], [address] [place] [address], [address], 12/28/2024 14:39:49 cyanocoba nicolle (vit B-12) 1,000 mcg/mL injection solution 2024 025 Not available 09/29/2024 12:15:58 Patient TargetsNo targets recorded. Patient InstructionsNo instructions recorded. Reason for Referral Chief Underwriter Referral for Unco ntrolled type 2 diabetes mellitus Diabetic foot care; first available appt Referring Physician: Erik Frederick, Family Medicine, Encounter Date: 12/23/2024 Results Created Date Observation Date Name Description Value Unit Range Abnormal Flag Note LastModifiedBy Organization Detail LastModifiedTime 09/29/1909/29/2024 gluco se, finge rstic k, blood Blood Glucose: mg/dl 453 Not Available [address], [address], 09/29/2024 12:10:42 09/29/1909/29/2024 HbA1c (hemo globi n A1c), blood HbA1c 12.7 Not Available [address], [address], 09/28/2024 17:40:13 11/11/19 25 11/10/2024 gluco se, finge rstic k, blood Blood Glucose: mg/dl 193 Not Available [address], [address], 11/10/2024 11:14:25 12/24/19 25 12/23/2024 HbA1c (hemo globi n A1c), blood HbA1c 8.8 Not Available [address], [place], [address], 12/23/2024 09:43:38 12/31/1912/31/2024 URINA LYSIS , COMPL ETE specific gravity 1.024 1.005- 1.030 normal Not Available [facility] ([facility]) [address] [place], [address], 01/01/2025 08:26:18 12/31/1912/31/2024 URINA LYSIS , COMPL ETE pH 6.0 5.0-7. 5 normal Not Available [facility] ([facility]) [address] [place], [address], 01/01/2025 08:26:18 12/31/19 25 12/31/2024 URINA LYSIS , COMPL ETE urine-color Yellow yellow Not Available [facility] ([facility]) [address] [place], [address], 01/01/2025 08:26:18 12/31/19 25 12/31/2024 URINA LYSIS , COMPL ETE appearance Turbid clear abnormal Not Available [facility] ([facility]) [address] [place], [address], 01/01/2025 08:26:18 12/31/19 25 12/31/2024 URINA LYSIS , COMPL ETE WBC esterase 2+ negati ve abnormal Not Available [facility] ([facility]) [address] [place], [address], 01/01/2025 08:26:18 12/31/19 25 12/31/2024 URINA LYSIS , COMPL ETE protein 2+ negati ve/tra ce abnormal Not Available [facility] ([facility]) [address] [place], [address], 01/01/2025 08:26:18 12/31/19 25 12/31/2024 URINA LYSIS , COMPL ETE glucose 3+ negati ve abnormal Not Available [facility] ([facility]) [address] [place], [address], 01/01/2025 08:26:18 12/31/19 25 12/31/2024 URINA LYSIS , COMPL ETE ketones Negati ve negati ve Not Available [facility] ([facility]) [address] [place], [address], 01/01/2025 08:26:18 12/31/19 25 12/31/2024 URINA LYSIS , COMPL ETE occult blood 2+ negati ve abnormal Not Available [facility] ([facility]) [address] [place], [address], 01/01/2025 08:26:18 12/31/19 25 12/31/2024 URINA LYSIS , COMPL ETE bilirubin Negati ve negati ve Not Available [facility] ([facility]) [address] [place], [address], 01/01/2025 08:26:18 12/31/19 25 12/31/2024 URINA LYSIS , COMPL ETE urobilinogen ,semi-qn 0.2 mg/dL 0.2-1. 0 normal Not Available [facility] ([facility]) [address] [place], [address], 01/01/2025 08:26:18 12/31/19 25 12/31/2024 URINA LYSIS , COMPL ETE nitrite, urine Negati ve negati ve Not Available [facility] ([facility]) [address] [place], [address], 01/01/2025 08:26:18 12/31/19 25 12/31/2024 URINA LYSIS , COMPL ETE microscopic examination See below: Micro scopi c was indic ated and was perfo rmed. Not Available [facility] ([facility]) [address] [facility], [place], [address], 01/01/2025 08:26:18 12/31/19 25 12/31/2024 URINA LYSIS , COMPL ETE WBC >30 /hpf 0 - 5 abnormal Clump s of leuko cytes prese nt. Not Available [facility] ([facility]) [address] [facility], [place], [address], 01/01/2025 08:26:18 12/31/19 25 12/31/2024 URINA LYSIS , COMPL ETE RBC >30 /hpf 0 - 2 abnormal Not Available [facility] ([facility]) [address] [facility], [place], [address], 01/01/2025 08:26:18 12/31/19 25 12/31/2024 URINA LYSIS , COMPL ETE epithelial cells (non renal) >10 /hpf 0 - 10 abnormal Not Available [facility] ([facility]) [address] [facility], [place], [address], 01/01/2025 08:26:18 12/31/19 25 12/31/2024 URINA LYSIS , COMPL ETE epithelial cells (renal) SKEINER Not Available [facility] ([facility]) [address] [place], [address], 01/01/2025 08:26:18 12/31/19 25 12/31/2024 URINA LYSIS , COMPL ETE casts None seen /lpf none seen Not Available [facility] ([facility]) [address] [place], [address], 01/01/2025 08:26:18 12/31/19 25 12/31/2024 URINA LYSIS , COMPL ETE cast type SKEINER Not Available [facility] ([facility]) [address] [facility], [place], [address], 01/01/2025 08:26:18 12/31/19 25 12/31/2024 URINA LYSIS , COMPL ETE crystals SKEINER Not Available [facility] ([facility]) [address] [facility], [place], [address], 01/01/2025 08:26:18 12/31/19 25 12/31/2024 URINA LYSIS , COMPL ETE crystal type SKEINER Not Available [facility] ([facility]) [address] [facility], [place], [address], 01/01/2025 08:26:18 12/31/19 25 12/31/2024 URINA LYSIS , COMPL ETE mucus threads Presen t not estab. Not Available [facility] ([facility]) [address] [facility], [place], [address], 01/01/2025 08:26:18 12/31/19 25 12/31/2024 URINA LYSIS , COMPL ETE bacteria Modera te none seen/f ew abnormal Not Available [facility] ([facility]) [address] [facility], [place], [address], 01/01/2025 08:26:18 12/31/19 25 12/31/2024 URINA LYSIS , COMPL ETE yeast SKEINER Not Available [facility] ([facility]) [address] [facility], [place], [address], 01/01/2025 08:26:18 12/31/19 25 12/31/2024 URINA LYSIS , COMPL ETE trichomonas SKEINER Not Available [facility] ([facility]) [address] [facility], [place], [address], 01/01/2025 08:26:18 12/31/19 25 12/31/2024 URINA LYSIS , COMPL ETE comment SKEINER Not Available [facility] ([facility]) [address] [facility], [place], [address], 01/01/2025 08:26:18 12/31/19 25 12/31/2024 URINA LYSIS , COMPL ETE microscopic examination SKEINER Not Available [facility]) [address] [facility], [place], [address], 01/01/2025 08:26:18 12/31/19 25 01/01/2025 URINE CULTU RE, ROUTI NE urine culture, routine Final report Not Available [facility] ([facility]) [address] [facility], [place], [address], 01/01/2025 08:26:18 12/31/1901/01/2025 URINE CULTU RE, ROUTI NE result 1 COMMEN T Great er than 2 organ isms recov ered, none predo minan t. Pleas e submi t anoth er sampl e if clini nina indic ated. 50,00 0-100 ,000 colon y formi ng units per mL Not Available [facility] ([facility]) [address] [facility], [place], [address], 01/01/2025 08:26:18 01/07/20 25 01/07/2025 NUSWA B VAGIN ITIS PLUS (VG+) atopobium vaginae Low - 0 score Not Available [facility] ([facility]) [address] [facility], [place], [address], 01/08/2025 08:10:46 01/07/20 25 01/07/2025 NUSWA B VAGIN ITIS PLUS (VG+) bvab 2 Low - 0 score Not Available [facility] ([facility]) [address] [place], [address], 01/08/2025 08:10:46 01/07/20 25 01/07/2025 NUSWA B VAGIN ITIS PLUS (VG+) megasphaera 1 Low - 0 score Calcu late total score by justine kamara the 3 indiv idual bacte rial vagin osis (BV) marke r score s toget her. Total score is inter prete d as follo ws: Total score 0-1: Indic ates the absen ce of BV. Total score 2: Indet ermin ate for BV. Addit ional clini jennifer data shoul d be evalu ated to estab yane a diagn osis. Total score 3-6: Indic ates the prese nce of BV. Not Available [facility] ([facility]) [address] [place], [address], 01/08/2025 08:10:46 01/07/20 25 01/08/2025 NUSWA B VAGIN ITIS PLUS (VG+) megan albicans, LAI Negati ve negati ve Not Available [facility] ([facility]) [address] [place], [address], 01/08/2025 08:10:46 01/07/20 25 01/08/2025 NUSWA B VAGIN ITIS PLUS (VG+) megan glabrata, LAI Positi ve negati ve abnormal Publi shed data demon strat e that up to 65% of Tiana da glabr brandi ident ified in cases of vagin al tiana diasi s have decre ased susce ptibi lity to fluco nazol e. Not Available [facility] ([facility]) [address] [place], [address], 01/08/2025 08:10:46 01/07/20 25 01/08/2025 NUSWA B VAGIN ITIS PLUS (VG+) trich vag by LAI Negati ve negati ve Not Available [facility] ([facility]) [address] [place], [address], 01/08/2025 08:10:46 01/07/20 25 01/08/2025 NUSWA B VAGIN ITIS PLUS (VG+) chlamydia trachomatis, LAI Negati ve negati ve Not Available [facility] ([facility]) [address] [place], [address], 01/08/2025 08:10:46 01/07/20 25 01/08/2025 NUSWA B VAGIN ITIS PLUS (VG+) neisseria gonorrhoeae, LAI Negati ve negati ve Not Available [facility] ([facility]) [address] [facility], [place], [address], 01/08/2025 08:10:46 01/07/20 25 01/08/2025 URINE CULTU RE, ROUTI NE urine culture, routine Final report abnormal Not Available [facility] ([facility]) [address] [facility], [place], [address], 01/08/2025 08:10:47 01/07/20 25 01/08/2025 URINE CULTU RE, ROUTI NE result 1 COMMEN T abnormal Beta hemol ytic Strep tococ cus, group B Penic illin and ampic illin are drugs of choic e for treat ment of beta- hemol ytic strep tococ jennifer infec tions . Susce ptibi lity testi ng of penic illin s and other beta- lacta m agent s appro justyn by the FDA for treat ment of beta- hemol ytic strep tococ jennifer infec tions need not be perfo rmed tayler jonesly becau se nonsu scept ible isola geovanna are extre izaiah rare in any beta- hemol ytic strep tococ cus and have not been repor summer for Strep tococ cus pyoge rosanna (grou p A). (CLSI ) 25,00 0-50, 000 colon y formi ng units per mL Not Available [facility] ([facility]) [address] [facility], [place], [address], 01/08/2025 08:10:47 01/07/20 25 01/06/2025 urina lysis , dipst ick Leukocytes Trace Not Available [address], [place], [address], 01/06/2025 09:46:41 01/07/20 25 01/06/2025 urina lysis , dipst ick Nitrite negati ve Not Available [address], [address], 01/06/2025 09:46:41 01/07/20 25 01/06/2025 urina lysis , dipst ick Urobilinogen .2 Not Available [address], [address], 01/06/2025 09:46:41 01/07/20 25 01/06/2025 urina lysis , dipst ick Protein 100 Not Available [address], [address], 01/06/2025 09:46:41 01/07/20 25 01/06/2025 urina lysis , dipst ick pH 6.0 Not Available [address], [address], 01/06/2025 09:46:41 01/07/2001/06/2025 urina lysis , dipst ick Blood Large Not Available [address], [address], 01/06/2025 09:46:41 01/07/20 25 01/06/2025 urina lysis , dipst ick Specific Merrillan 1.025 Not Available [address], [address], 01/06/2025 09:46:41 01/07/20 25 01/06/2025 urina lysis , dipst ick Ketone Negati ve Not Available [address], [address], 01/06/2025 09:46:41 01/07/20 25 01/06/2025 urina lysis , dipst ick Bilirubin Negati ve Not Available [address], [address], 01/06/2025 09:46:41 01/07/20 25 01/06/2025 urina lysis , dipst ick Glucose Negati ve Not Available [address], [address], 01/06/2025 09:46:41 01/07/20 25 01/06/2025 urina lysis , dipst ick Appearance Cloudy Not Available [address], [address], 01/06/2025 09:46:41 01/07/20 25 01/06/2025 urina lysis , dipst ick Color Pale Yellow Not Available [address], [address], 01/06/2025 09:46:41 10/24/19 25 10/14/2024 US, doppl er echoc ardio gram No observ ation record ed. [address], [place], [address], 10/23/2024 12:45:37 12/30/19 25 03/17/2018 colon oscop y proce dure (PROC ) No observ ation record ed. Not Available 12/29 17:34:21 01/22/20 25 01/21/2025 CT, abdom en + pelvi s, w/ contr ast No observ ation record ed. [address] (Scheduling) [address], [place], [address], 01/25/2025 14:19:49 Result Notes None recorded. Problems Name Problem SNOMED Code Status Onset Date Resolution Date Notes Provider Name and Address Organization Details Recorded Time Uncontro lled type 2 diabetes mellitus 516760427 Completed 201611/07/2021 Problem Code: 250.02; Problem Code Type: ICD-9; Not Available [facility] 21:53:25 Uncontro lled type 2 diabetes mellitus 695113814 Active 2016 Not Available [facility] 2 21:53:17 Acute lymphang itis of trunk 39908030 Completed 201606/10/2019 Problem Code: L03.329; Problem Code Type: ICD-10; Not Available [facility] 21:53:18 Cellulit is of abdomina l wall 90345266 Completed 201606/10/2019 Problem Code: L03.311; Problem Code Type: ICD-10; Not Available [facility] 21:53:19 Cellulit is and abscess of trunk 224745488 Completed 201611/07/2021 Problem Code: 682.2; Problem Code Type: ICD-9; Not Available [facility] 21:53:30 Pain of left hip joint [id number] 9100 Completed 201606/10/2019 Problem Code: M25.552; Problem Code Type: ICD-10; Not Available [facility] 2 21:53:19 Pain of hip region 12819763 Completed 201611/07/2021 Problem Code: 719.45; Problem Code Type: ICD-9; Not Available [facility] 21:53:28 Uncontro lled type 2 diabetes mellitus 099787728 Completed 201605/26/2018 Not Available [facility] 2 21:53:17 Diarrhea 27549420 Completed 201604/29/2017 Problem Code: R19.7; Problem Code Type: ICD-10; Not Available [facility] 2 21:53:28 Acute cystitis 43995606 Completed 201604/09/2017 Problem Code: N30.01; Problem Code Type: ICD-10; Not Available [facility] 2 21:53:26 Candidal otitis externa 94779179 Completed 201608/02/2017 Problem Code: B37.84; Problem Code Type: ICD-10; Not Available [facility] 21:53:17 Otalgia of left ear Completed 201606/17/2017 Not Available [facility] 2 21:53:17 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 11:32:18 Otogenic otalgia 67520648 Completed 201606/17/2017 Problem Code: 388.71; Problem Code Type: ICD-9; Not Available [facility] 2 21:53:27 Late effects of cerebrov ascular disease 557800921 Completed 201611/07/2021 Problem Code: 438.9; Problem Code Type: ICD-9; Not Available [facility] 2 21:53:32 Mixed hyperlip idemia 143351877 Completed 201605/26/2018 Problem Code: E78.2; Problem Code Type: ICD-10; Not Available [facility] 2 21:53:17 Hyperten sive disorder 84453883 Active 2016 Problem Code: I10; Problem Code Type: ICD-10; Not Available [facility] 21:53:17 Abnormal weight gain 521122275 Completed 201608/17/2017 Problem Code: R63.5; Problem Code Type: ICD-10; Not Available [facility] 21:53:22 Benign essentia l hyperten nay 3888839 Active 2016 Problem Code: 401.1; Problem Code Type: ICD-9; Not Available [facility] 2 21:53:27 Non-bull ous impetigo 178643604 Completed 201609/14/2017 Problem Code: L01.01; Problem Code Type: ICD-10; Not Available [facility] 2 21:53:18 Neck pain 63887300 Completed 201609/14/2017 Not Available [facility] 2 21:53:19 Impetigo 96361338 Completed 201609/14/2017 Problem Code: 684; Problem Code Type: ICD-9; Not Available [facility] 2 21:53:32 Acute sinusiti s 47439487 Completed 201712/24/2017 Problem Code: J01.90; Problem Code Type: ICD-10; Not Available [facility] 2 21:53:18 Acute bronchit is 55458927 Completed 201702/08/2018 Problem Code: J20.9; Problem Code Type: ICD-10; CARMELO becerra, [employer] 2 11:32:18 Diarrhea 41621274 Completed 201702/18/2018 Problem Code: R19.7; Problem Code Type: ICD-10; Not Available [facility] 2 21:53:21 Acute cystitis 62070854 Completed 201703/08/2018 Problem Code: N30.01; Problem Code Type: ICD-10; Not Available [facility] 2 21:53:26 Dysuria 89075433 Completed 201705/10/2018 Problem Code: R30.9; Problem Code Type: ICD-10; Erik Frederick, MIGUEL [address] [place] [address], [address] , [employer] 5 09:45:34 Urinary tract infectio us disease 27133846 Completed 201705/10/2018 Problem Code: 599.0; Problem Code Type: ICD-9; CARMELO becerra, [employer] 2 11:32:18 Constipa tion 78645061 Completed 201707/06/2022 Problem Code: 564.0; Problem Code Type: ICD-9; CARMELO TRANGNEAR null, [employer] 2 11:32:18 Abnormal weight gain 574341176 Completed 201707/25/2018 Problem Code: R63.5; Problem Code Type: ICD-10; Not Available [facility] 2 21:53:23 Influenz a 1039255 Completed 201706/19/2018 Problem Code: J10.1; Problem Code Type: ICD-10; Not Available [facility] 2 21:53:18 Acute bronchit is 78966641 Completed 201708/04/2018 Problem Code: J20.8; Problem Code Type: ICD-10; CARMELO TRANGNEAR null, [employer] 2 11:32:18 Influenz a with non-resp iratory manifest ation 56106318 Completed 201706/19/2018 Problem Code: 487.8; Problem Code Type: ICD-9; Not Available [facility] 2 21:53:28 Low back pain 777627131 Completed 201807/06/2022 Problem Code: M54.5; Problem Code Type: ICD-10; CARMELO TRANGNEAR null, [employer] 2 11:32:18 Lumbar spondylo sis 495302535 Completed 201801/05/2020 Problem Code: M47.26; Problem Code Type: ICD-10; Not Available [facility] 2 21:53:19 Low back pain 053017506 Completed 201801/05/2020 Problem Code: M54.5; Problem Code Type: ICD-10; CARMELO MYNEAR null, [employer] 2 11:32:18 Nausea 840975989 Completed 201807/06/2022 Problem Code: R11.0; Problem Code Type: ICD-10; CARMELO MYNEAR null, [employer] 2 11:32:18 Acute bronchit is 56445863 Completed 201807/06/2022 Problem Code: J20.9; Problem Code Type: ICD-10; CARMELO becerra, [employer] 2 11:32:18 General examinat ion of patient Completed 201811/07/2021 Not Available [facility] 2 21:53:23 Atherosc lerosis of coronary artery without angina pectoris 66663265811 4103 Active 2018 Not Available [facility] 2 21:53:23 Urinary tract infectio us disease 86842555 Completed 201805/09/2020 Problem Code: N39.0; Problem Code Type: ICD-10; CARMELO becerra, [employer] 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 53731075 Active 2019 Problem Code: D51.9; Problem Code Type: ICD-10; Not Available [facility] 2 21:53:17 Otitis externa of bilatera l ears 18267404545 41806 Completed 201905/09/2020 Problem Code: H60.333; Problem Code Type: ICD-10; Not Available [facility] 2 21:53:17 Finding of general energy [id number] Completed 201905/09/2020 Problem Code: R53.83; Problem Code Type: ICD-10; Not Available [facility] 2 21:53:22 Dysuria 40105772 Completed 201907/06/2022 Problem Code: R30.0; Problem Code Type: ICD-10; Erik Frederick APRN [address] [place] [address], [id number] , [employer] 5 09:45:34 Urinary tract infectio us disease [id number] Completed 201905/09/2020 Problem Code: N39.0; Problem Code Type: ICD-10; CARMELO becerra, [employer] 2 11:32:18 Urinary tract infectio us disease [id number] Completed 201905/09/2020 Problem Code: N39.0; Problem Code Type: ICD-10; CARMELO HENDRICKS null, [employer] 2 11:32:18 Dysuria [id number] Completed 201905/09/2020 Problem Code: R30.0; Problem Code Type: ICD-10; Erik Frederick, WARRANTY COORDINATOR [address] [place], [address] , [employer] 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 2 11:32:18 Urinary tract infectio us disease 33597510 Completed 202006/05/2021 Problem Code: N39.0; Problem Code Type: ICD-10; CARMELO HENDRICKS null, [employer] 2 11:32:18 General examinat ion of patient Active 2020 Not Available [facility] 2 21:53:23 Body mass index 25-29 - overweig ht 472979940 Active 2020 Problem Code: Z68.28; Problem Code Type: ICD-10; Not Available [facility] 2 21:53:24 Influenz a vaccine needed [id number] 06 Completed 202007/06/2022 Problem Code: Z23; Problem Code Type: ICD-10; CARMELO FLOWERR null, [employer] 2 11:32:18 Dizzines s and giddines s 537885214 Completed 202107/06/2022 Problem Code: R42; Problem Code Type: ICD-10; CARMELO HENDRICKS null, [employer] 2 11:32:18 Acute respirat ory infectio ns 067182888 Completed 202107/06/2022 Problem Code: J22; Problem Code Type: ICD-10; CARMELO HENDRICKS null, [employer] 2 11:32:18 Myositis 72826101 Completed 202107/06/2022 Problem Code: M60.9; Problem Code Type: ICD-10; CARMELO HENDRICKS null, [employer] 2 11:32:18 Cough 93465613 Completed 202101/29/2022 Problem Code: R05; Problem Code Type: ICD-10; Not Available [facility] 2 21:53:20 Urinary tract infectio us disease 92184338 Completed 202107/06/2022 Problem Code: N39.0; Problem Code Type: ICD-10; CARMELO HENDRICKS null, [employer] 2 11:32:18 Chronic systolic heart failure 525925866 Active 2023 Erik Frederick APRN [address] [place] [address], [id number] , [employer] 4 13:46:49 Moderate recurren t major depressi on 72211568 Active 2023 Erik Frederick APRN [address] [place], [address] , [employer] 4 16:09:53 Mild dementia 47879137386 4108 Active 2023 Erik Frederick APRN [address] [place], [address] , [employer] 4 13:51:34 Renal tract candidia sis 744951462 Active 2024 Erik Frederick APRN [address] [place] [address], [id number] , [employer] 10:50:24 Dysuria 82062422 Active 2024 Erik Frederick APRN [address] [place] [address], [phone] , [employer] 09:45:34 Vaginiti s 31544008 Active 2024 Erik Frederick APRN [address] [place] [address], [address] , [employer] 10:11:56 Incision al hernia 450503197 Active 2024 Erik Frederick APRN [address] [place] [address], [address] , [employer] 10:12:26 Acute diarrhea 976916323 Active 2024 Erik Frederick APRN [address] [place] [address], [address] , [employer] 14:16:51 Chronic primary bladder pain syndrome Active 2024 Erik Frederick APRN [address] [place] [address], [address] , [employer] 5 12:57:37 Candidia [facility] 85083875 Active 2024 Erik Frederick APRN [address] [place] [address], [phone] , [employer] 12:57:46 Notes:*Problem Name: Celluli tis of ankle *Problem Status: Acute *Comments: *Problem Code: 682.6 *Problem Code Type: ICD-9 *Note Date: 12/10/2017 Problem Notes None recorded. Procedures Surgical History Date Name Laterality Status Provider Name and Address Organization Details Recorded Time 05/11/20 24 Pacemaker completed Erik Frederick APRN [address] [place] [address], [id number], [employer] 05/18/2024 13:07:53 05/11/20 24 placement of stent in coronary artery completed Erik Frederick APRN [address] [place], [address], [employer] 05/18/2024 13:08:19 11/13/19 24 Cerumen Removal completed Erik Frederick APRN [address] [place], [address], [employer] 11/17/2023 18:30:04 11/09/19 23 open reduction of fracture with internal fixation completed Erik Frederick APRN [address] [place], [address], [employer] 11/20/2022 10:33:35 06/06/20 22 Most Recent Mammogram completed CARMELO HENDRICKS [employer] 11/13/2023 15:19:19 12/25/19 17 placement of stent in coronary artery completed Not Available [facility] 04/24/2022 22:56:18 12/25/19 17 hysterectomy completed Not Available [facility] 022 22:56:18 Imaging Results None recorded. Procedure Notes None recorded. Medical Equipment None Reported. Allergies Allergen ID Allergen Name Allergen Category Reaction Reaction Severity Criticality Documentation Date Start Date Code Code System Note Provider Name and Address Organization Details Recorded Time 97744 Substance with sulfonami de structure and antibacte rial mechanism of action (substanc e) medicatio n Not available Not available Not available 04/24/2022 69400 8003 SNOMED Shyann Sinai becerra, [employer] 3 08:50:19 43747 Jardiance medicatio n Not available Not available Not available 04/24/2022 82578 59 RxNorm Not Available [facility] 22:57:08 85034 Pyridium medicatio n Not available Not available Not available 04/24/2022 8998 RxNorm Not Available [facility] 22:57:08 Medications Name Sig Start Date Stop Date Status Note LastModified by Organization Details LastModified Time losartan 50 mg tablet Take 1 tablet every day by oral route, for BP. 2023 active Not Available Not Available Not Avai lable latanoprost 0.005 % eye drops active Not Available Not Available Not Available fluconazole 100 mg tablet TAKE ONE TABLET BY MOUTH EVERY DAY FOR 5 DAYS for yeast active Not Available Not Available No t Available atorvastati n 40 mg tablet TAKE 1 TABLET BY MOUTH AT BEDTIME NIGHTLY 2024 active Not Available Not Available Not Avai lable nystatin 100,000 unit/mL oral suspension TAKE FIVE ML BY MOUTH FOUR TIMES DAILY FOR TONGUE 06/29 completed Not Available Not Available Not Available atorvastati n 20 mg tablet 09/29 completed Not Available Not Available Not Available donepezil 5 mg tablet TAKE ONE TABLET BY MOUTH NIGHTLY AT BEDTIME FOR memory 06/29 completed Not Available Not Available Not Available trazodone 50 mg tablet Take 1 tablet every day by oral route at bedtime, for Insomnia. 02/24 completed Not Available Not Available Not Available atorvastati n 10 mg tablet TAKE ONE TABLET BY MOUTH NIGHTLY 06/29 completed Not Available Not Available Not Available azithromyci n 250 mg tablet Take 1 tablet every day by oral route with meal(s) for 6 days. 01/19 completed Not Available Not Available Not Available alprazolam 1 mg tablet 11/10 completed Not Available Not Available Not Available Lidocaine Viscous 2 % mucosal solution active Not Available Not Available Not Available ofloxacin 0.3 % eye drops 01/19 completed Not Available Not Available Not Available metoprolol tartrate 100 mg tablet Take 1 tablet(s) by mouth daily 06/18 completed Not Available Not Available Not Available bethanechol chloride 10 mg tablet Take 1 tablet 4 times a day by oral route. 10/09 completed Not Available Not Available Not Available tizanidine 4 mg tablet 1 po q hs 02/21 completed Not Available Not Available Not Available benzonatate 200 mg capsule take 1 capsule (200 mg) by oral route 3 times per day prn cough 07/06 completed Not Available Not Available Not Available cephalexin 250 mg capsule take 1 capsule (250 mg) by oral route every 6 hours 07/06 completed Not Available Not Available Not Available fluconazole 200 mg tablet Take 1 tablet every day by oral route. 11/12 completed Not Available Not Available Not Available lisinopril 20 mg tablet TAKE 1 TABLET BY MOUTH ONCE DAILY 01/28 completed Not Available Not Available Not Available prednisone 20 mg tablet take 1 tablet (20 mg) by oral route once daily for 5 days 01/29 completed Not Available Not Available Not Available fluorouraci l 5 % topical cream 02/24 completed Not Available Not Available Not Available metoprolol succinate ER 100 mg tablet,exte nded release 24 hr Take 1 tablet every day by oral route. 01/18 completed Not Available Not Available Not Available loperamide 2 mg tablet one tablet up to four times a day as needed for diarrhea 04/28 completed Not Available Not Available Not Available glipizide ER 5 mg tablet, extended release 24 hr TAKE ONE TABLET BY MOUTH EVERY MORNING FOR DIABETES active Not Available Not Available No t Available Diflucan 150 mg tablet take 1 tablet (150 mg) by oral route once 07/06 completed Not Available Not Available Not Available diphenoxyla te-atropine 2.5 mg-0.025 mg tablet Take 1 tablet(s) by mouth BID prn for diarrhea 09/29 completed Not Available Not Available Not Available clopidogrel 75 mg tablet TAKE ONE TABLET BY MOUTH ONCE DAILY active Not Available Not Available No t Available dextrometho rustam-kadi enesin 10 mg-100 mg/5 mL oral syrup Take 1 teaspoon by mouth q4h prn for cough 02/04 completed Not Available Not Available Not Available amlodipine 5 mg tablet 02/24 completed Not Available Not Available Not Available digoxin 250 mcg (0.25 mg) tablet TAKE 1 TABLET BY MOUTH DAILY 11/10 completed Not Available Not Available Not Available ciprofloxac in 500 mg tablet take 1 tablet (500 mg) by oral route 2 times per day 07/05 completed Not Available Not Available Not Available doxycycline monohydrate 100 mg tablet Take 1 tablet twice a day by oral route for 10 days, for toe infection . 12/23 completed Not Available Not Available Not Available amitriptyli ne 50 mg tablet TAKE ONE TABLET BY MOUTH EVERY DAY AT BEDTIME, FOR mood active Not Available Not Available No t Available triamcinolo ne acetonide 0.1 % topical cream active Not Available Not Available Not Available glimepiride 2 mg tablet Take one tablet by mouth BID 12/25 completed Not Available Not Available Not Available ketorolac 0.5 % eye drops active Not Available Not Available Not Available bethanechol chloride 25 mg tablet Take 1 tablet 3 times a day by oral route. 02/24 completed Not Available Not Available Not Available Zofran 4 mg tablet take 1 tab by mouth every 6 hours prn nausea 11/26 completed Not Available Not Available Not Available oxycodone-a cetaminophe n 5 mg-325 mg tablet 06/29 completed Not Available Not Available Not Available hydrocortis one 2.5 % topical cream with perineal applicator 06/29 completed Not Available Not Available Not Available Tessalon Perles 100 mg capsule take 1 capsule (100 mg) by oral route 3 times per day prn cough 11/26 completed Not Available Not Available Not Available methenamine hippurate 1 gram tablet 02/24 completed Not Available Not Available Not Available prednisolon e acetate 1 % eye drops,suspe nsion 04/29 completed Not Available Not Available Not Available tamsulosin 0.4 mg capsule Take 1 capsule twice a day by oral route for 7 days. 10/09 completed Not Available Not Available Not Available timolol maleate 0.25 % eye drops 04/29 completed Not Available Not Available Not Available doxycycline monohydrate 100 mg capsule TAKE ONE CAPSULE BY MOUTH TWICE DAILY FOR 10 DAYS FOR FOR INFECTION 12/23 completed Not Available Not Available Not Available hydrocodone 7.5 mg-acetamin ophen 325 mg tablet 11/20 completed Not Available Not Available Not Available cephalexin 500 mg capsule TAKE ONE CAPSULE BY MOUTH TWICE DAILY FOR SEVEN DAYS, FOR toe infection 12/23 completed Not Available Not Available Not Available pantoprazol e 40 mg tablet,kristi yed release active Not Available Not Available Not Available simvastatin 20 mg tablet TAKE 1 TABLET(S) BY MOUTH AT BEDTIME 02/18 completed Not Available Not Available Not Available cyanocobala min (vit B-12) 1,000 mcg/mL injection solution Inject 1 mL every month by subcutane ous route. 2024 active Not Available Not Available Not Avai lable glimepiride 4 mg tablet Take 1 tablet(s) by mouth qam 03/26 completed Not Available Not Available Not Available promethazin e 25 mg tablet Take 1 every 6 hours as needed for nausea/vo miting. 11/25 completed Not Available Not Available Not Available diclofenac sodium 75 mg tablet,kristi yed release Take 1 tablet(s) by mouth bid 06/10 completed Not Available Not Available Not Available digoxin 125 mcg (0.125 mg) tablet active Not Available Not Available N ot Available furosemide 20 mg tablet Take 1 tablet every day by oral route in the morning, for BP. 2023 active Not Available Not Available Not Avai lable Levaquin 500 mg tablet Take 1 tablet(s) by mouth daily for 10 days 07/15 completed Not Available Not Available Not Available mirtazapine 15 mg tablet Take 1 tablet every day by oral route at bedtime, for sleep. 01/19 completed Not Available Not Available Not Available metoprolol succinate ER 25 mg tablet,exte nded release 24 hr active Not Available Not Available Not Available irbesartan 150 mg tablet 09/29 completed Not Available Not Available Not Available estradiol 0.01% (0.1 mg/gram) vaginal cream 11/20 completed Not Available Not Available Not Available albuterol sulfate HFA 90 mcg/actuati on aerosol inhaler inhale 1 - 2 puffs (90 - 180 mcg) by inhalatio n route every 4 hours as needed active Not Available Not Available No t Available colchicine 0.6 mg tablet TAKE ONE TABLET BY MOUTH EVERY DAY FOR THREE DAYS 12/23 completed Not Available Not Available Not Available pioglitazon e 30 mg tablet Take 1 tablet every day by oral route. 01/28 completed Not Available Not Available Not Available Naprosyn 500 mg tablet Take 1 tablet(s) by mouth bid 09/14 completed Not Available Not Available Not Available ketoconazol e 2 % topical cream 01/19 completed Not Available Not Available Not Available oxybutynin chloride 5 mg tablet 07/06 completed Not Available Not Available Not Available ondansetron 4 mg disintegrat ing tablet DISSOLVE 1 TABLET EVERY 4 TO 6 HOURS NEEDED FOR NAUSEA 02/24 completed Not Available Not Available Not Available cefdinir 300 mg capsule 06/29 completed Not Available Not Available Not Available ramipril 10 mg capsule TAKE 1 CAPSULE BY MOUTH ONCE DAILY 07/06 completed Not Available Not Available Not Available neomycin-po lymyxin-hyd rocort 3.5 mg-10,000 unit/mL-1 % ear drops,susp 3 drops in the affected ear tid 07/16 completed Not Available Not Available Not Available Bactrim DS 800 mg-160 mg tablet Take 1 tablet(s) by mouth q12h for 10 days 02/20 completed Not Available Not Available Not Available Adult Low Dose Aspirin 81 mg tablet,kristi yed release take 1 tablet (81 mg) by oral route once daily 11/20 completed Not Available Not Available Not Available escitalopra m 10 mg tablet Take 1 tablet every day by oral route at bedtime. 01/18 completed Not Available Not Available Not Available glipizide 5 mg-metformi n 500 mg tablet Take 2 tablet(s) by mouth bid with meals 03/26 completed Not Available Not Available Not Available Ciprodex 0.3 %-0.1 % ear drops,suspe nsion instill 4 drops into affected ear(s) by otic route 2 times per day for 7 days 02/28 completed Not Available Not Available Not Available nitrofurant oin monohydrate /macrocryst als 100 mg capsule Take 1 capsule twice a day by oral route for 10 days. 11/12 completed Not Available Not Available Not Available OneTouch UltraSoft Lancets checking blood sugar before breakfast and the evening meal 07/13 completed Not Available Not Available Not Available Januvia 100 mg tablet Take 1 tablet(s) by mouth daily 10/23 completed Not Available Not Available Not Available Lantus Solostar U-100 Insulin 100 unit/mL (3 mL) subcutaneou s pen Inject 20 units every day by subcutane ous route at bedtime, for diabetes. 2024 active Not Available Not Available Not Avai lable Exelon Patch 4.6 mg/24 hour transdermal Apply 1 patch every day by transderm al route for 30 days, for MEMORY. 06/29 completed Not Available Not Available Not Available diclofenac 1 % topical gel APPLY 2 GRAMS TO THE AFFECTED AREA(S) BY TOPICAL ROUTE 4 TIMES PER DAY 02/24 completed Not Available Not Available Not Available lidocaine 2 % mucosal jelly in applicator 01/19 completed Not Available Not Available Not Available BD Ultra-Fine Nai Pen Needle 32 gauge x Use as directed with insulin active Not Available Not Available No t Available Tradjenta 5 mg tablet TAKE ONE TABLET BY MOUTH EVERY DAY active Not Available Not Available No t Available Xarelto 15 mg tablet TAKE ONE TABLET BY MOUTH EVERY DAY active Not Available Not Available No t Available OneTouch Verio test strips Use as directed to check glucose twice daily active Not Available Not Available No t Available Janumet XR 100 mg-1,000 mg tablet,exte nded release Take 1 tablet(s) by mouth daily with meal preferabl y in the evening 12/25 completed Not Available Not Available Not Available Jardiance 25 mg tablet take 1 tablet (25 mg) by oral route once daily in the morning 04/17 completed Not Available Not Available Not Available Entresto 24 mg-26 mg tablet Take 1 tablet twice a day by oral route, for Heart and BP. 09/29 completed Not Available Not Available Not Available OneTouch Verio Flex Meter test blood glucose twice a day active Not Available Not Available No t Available Fluzone High-Dose 9564-6378 (PF) 180 mcg/0.5 mL intramuscul ar syringe Inject intramusc ularly as directed 07/26 completed Not Available Not Available Not Available OneTouch Delica Plus Lancet 33 gauge Use as directed to test blood glucose twice daily active Not Available Not Available No t Available Paxlovid 300 mg (150 mg x 2)-100 mg tablets in a dose pack TAKE 3 TABLETS TOGETHER (TWO 150 MG NIRMATREL VIR TABLETS AND ONE 100 MG RITONAVIR TABLET) BY MOUTH TWICE DAILY FOR 5 DAYS. 07/06 completed Not Available Not Available Not Available Vitals Date Recorded Body height Body mass index (BMI) Body weight Body temperature Heart rate Oxygen saturation Oxygen saturation in Arterial blood by Pulse oximetry Systolic And Diastolic Provider Name and Address Organization Details Last Updated DateTime 5 170.18 cm 18.9 kg/m2 42238.5 2 g 98 [degF] 60 /min 97 % 97 % 113/68 mm[Hg] [employer] 5 11:50:11 Date Recorded Body height Body mass index (BMI) Body weight Body temperature Heart rate Oxygen saturation Oxygen saturation in Arterial blood by Pulse oximetry Systolic And Diastolic Provider Name and Address Organization Details Last Updated DateTime 5 170.18 cm 19.9 kg/m2 72939.2 3 g 98 [degF] 65 /min 95 % 95 % 121/54 mm[Hg] [employer] 5 11:11:25 Date Recorded Body height Body mass index (BMI) Body weight Body temperature Heart rate Oxygen saturation Oxygen saturation in Arterial blood by Pulse oximetry Systolic And Diastolic Provider Name and Address Organization Details Last Updated DateTime 5 170.18 cm 20.5 kg/m2 24605.6 g 98 [degF] 81 /min 95 % 95 % 139/72 mm[Hg] [employer] 5 09:36:23 Date Recorded Body height Body mass index (BMI) Body weight Body temperature Heart rate Oxygen saturation Oxygen saturation in Arterial blood by Pulse oximetry Systolic And Diastolic Provider Name and Address Organization Details Last Updated DateTime 5 170.18 cm 20.5 kg/m2 34309.6 g 98 [degF] 115 /min 94 % 94 % 95/56 mm[Hg] [employer] 5 10:33:29 Date Recorded Body height Body mass index (BMI) Body weight Body temperature Heart rate Oxygen saturation Oxygen saturation in Arterial blood by Pulse oximetry Systolic And Diastolic Provider Name and Address Organization Details Last Updated DateTime 5 170.18 cm 20.9 kg/m2 99751.2 2 g 98 [degF] 66 /min 95 % 95 % 110/51 mm[Hg] CARMELO COSTELLOJACK [employer] 5 09:40:35 Social History Question Answer Notes LastModified by Organizat ion Details LastModified Time Tobacco Smoking Status Current Every Day Smoker Shyann Sinai becerra, [employer] 10/08/2022 08:50:45 Do You Have An Advance Directive? No Information n ot available 07/06/2022 Is Your Home Air Conditioned? Yes Information not available 07/06/2022 Are You Blind Or Do You Have Difficulty Seeing? No Information n ot available 07/06/2022 In The 14 Days Before Symptom Onset, Have You Had Close Contact With A Laboratory-confirm ed COVID-19 While That Case Was Ill? No Information n ot available 07/06/2022 In The 14 Days Before Symptom Onset, Have You Had Close Contact With A Person Who Is Under Investigation For COVID-19 While That Person Was Ill? No Information not available 07/06/2022 Have You Been To An Area Known To Be High Risk For COVID-19? No Information not available 07/06/2022 Are You Deaf Or Do You Have Serious Difficulty Hearing? Yes Information not available 07/06/2022 What Type Of Diet Are You Following? DIABETIC Information n ot available 07/06/2022 Have There Been Any Changes To Your Family Or Social Situation? No Information no t available 07/06/2022 Are There Any Guns Present In Your Home? No Information not available 07/06/2022 Do You Have A Medical Power Of Md Psychiatry? No Information not available 07/06/2022 What Was The Date Of Your Most Recent Tobacco Screening? 01/06/2025 Information not available 01/06/2025 What Is Your Current Pack Years? 30ormorepacky ears Information not available 01/28/2023 What Is Your Relationship Status? Information not available 07/06/2022 Do You Use Your Seat Belt Or Car Seat Routinely? Yes Information not available 07/06/2022 Do You Have Smoke And Carbon Monoxide Detectors In Your Home? Yes Information not available 07/06/2022 At What Age Did You Start Smoking Tobacco? 16 Information not available 07/06/2022 Are You Passively Exposed To Smoke? No Information no t available 07/06/2022 Are There Any Smokers In Your House? No Information not available 07/06/2022 How Much Tobacco Do You Smoke? 0.5 PPD Information not available 07/06/2022 Has Tobacco Cessation Counseling Been Provided? No Information not available 07/06/2022 How Many Years Have You Smoked Tobacco? 66 Information not available 07/06/2022 Have You Recently Traveled Abroad? No Information not available 07/06/2022 Do You Have Difficulty Walking Or Climbing Stairs? No Information not available 07/06/2022 Are You Currently In School? No Information not available 07/06/2022 Do You Have Any Dietary Restrictions? Yes Information not available 07/06/2022 Sex: Female Functional Status Question Answer Note LastModified by Organizat ion Details LastModified Time Do you use any illicit or recreational drugs? No Information not available 07/06/2022 Do you or have you ever used any other forms of tobacco or nicotine? No Information not available 07/06/2022 What is your level of alcohol consumption? None Information not available 07/06/2022 Are you currently employed? No Information not available 07/06/2022 Do you have transportation difficulties? No Information not available 07/06/2022 Do you have difficulty doing errands alone? No Information not available 07/06/2022 Are you able to care for yourself independently? Yes Information not available 07/06/2022 Do you have difficulty dressing, bathing, grooming, or toileting? No Information not available 07/06/2022 Mental Status Question Answer Note LastModified by Organization D etails LastModified Time Do you have difficulty concentrating, remembering or making decisions? No Information no t available 07/06/2022 Family History Relationship Description Onset Age of this Age Resolved Age Notes LastModified by Organization Details LastModified Time Unspecified Relation Family history of Myocardial infarction [email or web address] Not available 10/08 08:50:35 Medical History Condition Response Diabetes Y Coronary Artery Disease Y Hypertension Y COPD Y High Cholesterol Y Gynecological History Statement/Question Response Most Recent Mammogram 06/06/2022 Obstetrics History GPAL:G 0 P 0 0 0 0 Immunizations Vaccine Type Date Status Note Provider Nam remington and Address Organization Details Recorded Time zoster recombinant 4 completed Erik Frederick, WARRANTY COORDINATOR [address] [place], [address], [employer] 01/26/2024 20:55:37 Influenza, split virus, quadrivalent, preservative 8 completed CARMELO MYNEAR null, [employer] 07/06/2022 11:25:37 Influenza, split virus, quadrivalent, PF 1 completed CARMELO MYNEAR null, [employer] 07/06/2022 11:25:37 Influenza, MDCK, quadrivalent, PF 0 completed CARMELO MYNEAR null, [employer] 07/06/2022 11:25:38 Influenza, MDCK, quadrivalent, preservative 9 completed CARMELO MYNEAR null, [employer] 07/06/2022 11:25:38 pneumococcal polysaccharide PPV23 9 completed CARMELO MYNEAR null, [employer] 07/06/2022 11:25:37 Influenza, split virus, trivalent, PF 7 completed Not Available [employer] 06/01/2023 10:23:36 Influenza, high-dose, quadrivalent, PF 2 completed CARMELO MYNEAR null, [employer] 07/06/2022 11:25:37 COVID-19, mRNA, LNP-S, PF, 100 mcg/0.5mL dose or 50 mcg/0.25mL dose 1 completed CARMELO MYNEAR null, [employer] 07/06/2022 11:25:37 COVID-19, mRNA, LNP-S, PF, 100 mcg/0.5mL dose or 50 mcg/0.25mL dose 1 completed CARMELO MYNEAR null, [employer] 07/06/2022 11:25:37 Hep A, adult 9 completed CARMELO MYNEAR null, [employer] 07/06/2022 11:25:38 Hep A, adult 9 completed CARMELO MYNEAR null, [employer] 07/06/2022 11:25:38 COVID-19, mRNA, LNP-S, PF, 100 mcg/0.5mL dose or 50 mcg/0.25mL dose 1 completed CARMELO MYNEAR null, [employer] 07/06/2022 11:25:38 COVID-19, mRNA, LNP-S, PF, 100 mcg/0.5mL dose or 50 mcg/0.25mL dose 2 completed CARMELO TRANGNEAR null, [employer] 07/06/2022 11:25:38 COVID-19, mRNA, LNP-S, bivalent, PF, 50 mcg/0.5 mL or 25mcg/0.25 mL dose 3 completed Tiara Andradee null, [employer] 01/18/2023 14:51:22 SARS-COV-2 (COVID-19) vaccine, UNSPECIFIED 4 completed CARMELO TRANGNEAR null, [employer] 06/29/2024 11:45:18 influenza, unspecified formulation 4 completed CARMELO TRANGNEAR null, [employer] 06/29/2024 11:45:34 COVID-19, mRNA, LNP-S, PF, 50 mcg/0.5 mL 3 completed Not Available [facility] 01/06/2025 09:27:50 Influenza, high-dose, quadrivalent, PF 3 completed Not Available [facility] 01/06/2025 09:27:50 Past Encounters Encounter ID Performer Location Encounter Start Date Encounter Closed Date Diagnosis/Indication Diagnosis SNOMED-CT Code Diagnosis ICD10 Code Diagnosis Note [id number] Erik Frederick[address] [address] 07/06/2022 10:55:06 07/06/2022 12:37:51 Type 2 diabetes mellitus without complication 736968435 E11.9 I have gone through her medication s with her today, instructin anh her on medication adherence, and given her a printed corrected list of her medication s. I have asked her to alternate ice and heat, apply muscle rub, use Tylenol arthritis as needed for the back pain and obtain an x-ray as ordered. I have time for that due to caring for her . I instructed her that should the back pain progress, she should return to clinic or go to the emergency room. I have advised her not to lift more lift more than 5 pounds for the next 2 weeks. 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 Medication compliance and DASH diet emphasized . I would like Dr Chery to see her for Cardio clearance for cystoscopy . Uncontroll ed type 2 diabetes mellitus 063822777 E11.65 A1c improved. Bereavement 31995176 Z63 .4 Add low dose Lexapro 10 mg nightly. Essential hypertension 54118607 I10 Hyperlipidemia 95201996 E78.5 Tobacco de pendence caused by cigarettes 5656405862 2774655 F17.210 [id number] Erik Frederick [place] [address] 11/20/2022 10:15:15 11/20/2022 10:56:10 Type 2 diabetes mellitus without complication 988832756 E11.9 Continue current meds. Bereavement 22973648 Z63 .4 Continue Lexapro. [id number] Erik Frederick [place] [address] 01/08/2023 13:15:28 01/08/2023 14:03:55 Bradycardia 34807772 R00.1 Daughter was given instructio ns today to stop the metoprolol for now and taper off Lexapro and she was given a taper schedule. She is to push fluids. She is to monitor her mother's heart rate over the next 24 hours, and if it decreases, she becomes symptomati c, or does not improve to greater than 55 bpm within the next 24 hours off the metoprolol then she should take her mother to the emergency room or call 911. I will see her back for close follow-up in 1 week, I suspect she may need her metoprolol significan tly decreased from the 100 mg she is currently taking. We will also obtain labs due to the bradycardi a today to determine any another cause. Candidiasis of vagina 72 322072 B37.31 [id number] Erik Frederick [place] [address] 01/18/2023 14:44:42 01/18/2023 16:05:17 Bradycardia 37737986 R00.1 Patient to proceed to [facility] ER via POV with daughter, she declined EMS. She has suspected new onset sick sinus syndrome. Report called to Dr Jacobsen at [facility] ER. Recent records and med lists sent to ER with pt. [id number] Erik Frederick [place] [address] 01/28/2023 10:41:15 01/28/2023 11:24:14 Acute kidney injury 41657263 N17.9 Stop Actos. Continue Tradjenta. Hydration emphasized . Bradycardia 77520415 R00 .1 Monitor at home and keep close Cardio f/up appt, avoid all rate lowering medication s. Heart fail ure with normal ejection fraction 645221117 I50.30 May need low dose lasix pending renal labs but she appears euvolemic today. Skin lesion 03094606 L98 .9 Horn lesion right forearm [id number] [place] [id number] 02/18/2023 11:27:03 02/18/2023 12:19:42 Chronic kidney disease due to type 2 diabetes mellitus 6806245327 08 E11.22 Continue current medication s, emphasized adequate hydration and avoidance of NSAID drugs. She is to keep her cardiology follow-up appointmen t that is scheduled for later this month. Daughter is to assist her with her medication management . [id number] [place] [address] 06/01/2023 10:22:44 06/01/2023 11:01:13 Recurrent urinary tract infection 123971296 N39.0 Start macrobid and diflucan and culture urine which was not done at . Candidiasis of vagina 72 592701 B37.31 [id number] [place] [address] 06/19/2023 09:25:47 06/19/2023 10:16:14 Recurrent urinary tract infection 090872302 N39.0 I will ask staff to contact Urology and and for an appt for pt REMY. Start cipro, obtain UA and culture. Start bethanecol . Obtain KUB today. She likely needs cystoscopy with possible urethral dilation. Vaginitis 53794564 N76.0 Diflucan daily, obtain vaginal swab. Candidiasis of vagina 72 100878 B37.31 [id number] [place] [address] 07/05/2023 13:41:05 07/05/2023 14:34:56 Pain of right knee joint 2435862831 26086 M25.561 Possible medial meniscus partial tear during hyperexten nay movement. She is not a candidate for oral nsaids. Obtain x ray, ice, rest, use of voltaren gel and tylenol explained. May need MRI and Ortho consult if pain persists despite the above interventi ons. [id number] [place] [address] 11/13/2023 14:50:25 11/13/2023 17:25:21 Type 2 diabetes mellitus without complication 858787414 E11.9 Continue current meds. Chronic ob structive pulmonary disease 05543829 J44.9 Impacted c erumen in right ear 0364256199 969370 H61.21 Insomnia 278116177 G47.0 0 Sleep hygiene explained. Tobacco de pendence caused by cigarettes 7720015949 8189536 F17.210 Smoking cessation encouraged . Body mass index 20-24 - normal 466482530 Z68.22 [id number] [place] [address] 01/20/2024 13:38:16 01/20/2024 14:58:14 Insomnia 315641865 G47.00 Sleep hygiene explained. Remeron was uneffectiv e, trial Trazodone. Diarrhea 14661892 R19.7 Active or passive immunization 938773934 Z23 Body mass index 20-24 - normal 448285268 Z68.22 Tobacco de pendence caused by cigarettes 0164225923 6106901 F17.210 Smoking cessation encouraged . [id number] [place] [address] 02/25/2024 13:21:08 02/25/2024 14:57:54 Uncontrolled type 2 diabetes mellitus 736260726 E11.65 A1c improved. Chronic sy stolic heart failure 250178370 I50.22 Compliance with Entresto emphasized . DASH diet, daily weights, and BP monitoring discussed. Moderate r ecurrent major depression 22810197 F33.1 Trial elavil. 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 Body mass index 20-24 - normal 259090424 Z68.22 [id number] [place]constantino [place] [phone] 04/29/2024 13:24:15 04/29/2024 14:13:10 Mild dementia 0037484540 35416 F03.A0 Start aricept and exelon patch. Daughter is to assist her with meds. She does not drive anymore. Likely vascular dementia complicate d by depression when her spouse last year. Adequate nutrition, daily routine and sleep schedule encouraged . Falls safety encouraged . 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 She is to take a womens MVI daily. Acute glossitis 97415140 6 K14.0 Moderate r ecurrent major depression 53459261 F33.1 Coronary atherosclerosis 914147357 I25.10 Atheroscle rosis of coronary artery without angina pectoris 5240669281 14694 I25.10 Stop smoking. Medication compliance and DASH diet emphasized . I would like Dr Chery to see her for Cardio clearance for cystoscopy . Chronic sy stolic heart failure 519608618 I50.22 Entresto stopped due to cost. Start Losartan and lasix. [id number] [place] [id number] 06/29/2024 11:04:34 06/29/2024 12:22:06 Renal disorder due to type 2 diabetes mellitus 878621178 E11.21 No changes to DM med regimen today. Adequate hydration and nutrition emphasized . Falls safety again discussed. 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 She is to take a womens MVI daily. [id number] [place] [phone] 09/29/2024 11:34:08 09/29/2024 12:34:46 Uncontrolled type 2 diabetes mellitus 696956459 E11.65 Her DM is grossly uncontroll ed. Start glipizide, continue tradjenta, begin Lantus 20 units at bedtime. I would like to see her taking Jardiance but she could not tolerate it previously due to severe vaginitis. Cannot take GLP1 due to underweigh t. She is mostly eating candy and carbs per her daughter. HOME ECONOMICS TEACHER here performed DM insulin teaching with pt and her daughter and first lantus dose was given here. Her daughter manages her care and medication s. Sx of hypoglycem ia were reviewed, she was Rx'd a new glucometer and supplies so daughter can check glucose at home. Consequenc es of uncontroll ed DM explained. Close f/up in 6 weeks. DM diet explained. 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 She is to take a womens MVI daily. Body mass index less than 20 815344225 Z68.1 Mild dementia 8991810196 68598 F03.A0 Could not tolerate aricept or Exelon. Tobacco de pendence caused by cigarettes 5952759207 9305000 F17.210 Smoking cessation encouraged . [id number] Erik [place] [id number] 11/10/2024 10:55:11 11/10/2024 11:49:10 Uncontrolled type 2 diabetes mellitus 308575456 E11.65 Increase Lantus to 25 units at bedtime. 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 She is to take a womens MVI daily. [id number] [place] [id number] 12/02/2024 09:26:58 12/02/2024 09:55:15 Gout 93512591 M10.9 Right great toe., Likely gout, but due to presentati on in toe and not the MTP joint, will also cover for cellulitis . Her daughter is to update me in 4 days. Elevate, cool compress, avoid eating pork. Cellulitis of toe of right foot 2616907544 L03.031 Moderate r ecurrent major depression 39718590 F33.1 Refill Elavil. 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 She is to take a womens MVI daily. Renal trac t candidiasis 238864350 B37.49 [id number] Erik Frederick [address] [address] 01/06/2025 09:27:29 01/06/2025 11:06:06 Dysuria 01774518 R30.0 Vaginitis 76292293 N76.0 Obtain vaginitis swab. Urine is turbid but NEG for UTI and recent urine culture on was NEG for growth. Daughter was instructed on nightly use of boric acid supp for 3-5 nights. Incisional hernia 678465 000 K43.2 Left lower abdomen, obtain CT to evaluate complexity . Alarm sx for hernia explained to pt and her daughter. Acute diarrhea 974845052 R19.7 Restart daily probiotic, obtain stool panel. Goals Section Goal Description Progress Status Start Date LastModified by Organization Details LastModified Time Activities of Daily Living Performs activities of daily living independently or with minimal assistance NoCmikege active 2023 Norma Church Information not available 12/24/2023 19:11:45 Hemoglobin A1C Lowers or maintains hemoglobin A1C (HbA1c) as per care team recommendation (s) [TARGET: less than or equal to 7%] NoChange active 2023 Norma Church Information not available 12/24/2023 19:11:45 Smoking Cessation Quits smoking NoChange active 2023 Norma Church Information not available 12/24/2023 19:11:45 Follow-up Appointmen t(s) Attends referral and/or follow-up appointment(s) as per care team recommendation (s) NoChange active 2023 Norma Church Information not available 12/24/2023 19:11:46 Blood Pressure Maintains blood pressure goal as defined by care team Jayjay active 2023 Norma Church Information not available 12/24/2023 19:11:46 Health Concerns Section Related Observation LastModified by Organization Detai ls LastModified Time None Recorded Concern Status LastModified by Organization Details LastModified Time Chronic obstructive lung disease Active [employer] Not Available 12/24/2023 19:03 :20 Tobacco dependence caused by cigarettes Active [employer] [facility] Not Available 12/24/2023 19:03:27 Essential hypertension Active [employer] Not Available 12/23/2023 13:35 :04 Type II diabetes mellitus uncontrolled Active [employer] Not Available 12/23/2023 13:35:20 Advance Directives Directive N: Payers Insurance Date Sequence Insurance Name Policy Number Policy Howard Covered Member ID Howard Member ID Guarantor Name 01/12/2025 1 [place]MEDICARE REPLACEMENT REGIONAL PPO) [id number] Lida Skelton [id number] Claribel Skelton 01/06/2025 1 [employer] (MEDICARE REPLACEMENT/AD VANTAGE - HMO) Lida Skelton [id number] Claribel Skelton 01/06/2025 [place] [employer] - [facility] Lida Skelton [id number] Claribel Skelton 02/26/2024 SLIDING FEE SCHEDULE - DISCOUNT Claribel Skelton Notes Date Note Type Note Provider Name and Address Organization Details Recorded Time 09/29/2024 text/html Diabetes F/UReported by PatientHPIFor associated symptoms, patient reportsweight loss (___ lbs),confusion,incr eased thirst,increased urination, andblurred visionbut reportsno weight gain,no dizziness,no sweats,no headaches,no increased appetite,no numbness of feet, andno calluses on feet. For review finger sticks, patient reportsfasting: ___andpost dinner: ___(she is not checking her glucose). For labs, patient reportslast a1c result: 8.2. For context, patient reportsseeing eye doctor regularly,checking feet regularly,taking aspirin daily,not missing doses of medications, andno side effects from medications.ROS as noted in the HPI Due for B 12 injection today, she has pernicious anemia and her tongue is smooth, painful and glossy today. Erik Frederick APRN [address] [place], [address], [employer] 09/29/2024 13:21:48 11/10/2024 text/html Diabetes F/UReported by PatientHPIFor context, patient reportshome blood sugar range highbut reportsseeing eye doctor regularly,checking feet regularly,taking aspirin daily,not missing doses of medications, andno side effects from medications. For associated symptoms, patient reportsweight gain (7 lbs)andconfusionbut reportsno dizziness,no sweats,no headaches,no increased appetite,no numbness of feet, andno calluses on feet. For review finger sticks, patient reportsfastinandpost dinner: 260. For labs, patient reportslast a1c result: 8.2.ROS as noted in the HPI Due for B 12 injection today, she has pernicious anemia and her tongue is smooth, painful and glossy today.Daughter is administering insulin started at last appt. Denies hypoglycemia. Lida continues mostly carb rich foods despite daughters efforts to provide healthier foods. She is not as thirsty and has gained a bit of weight since starting insulin. Appears euvolic today. Erik Frederick APRN [address] [place], [address], [employer] 11/15/2024 18:08:32 12/02/2024 text/html ROS as noted in the HPI Lida complains of erythema and edema of right great toe without injury. Began 3-4 days ago. She is diabetic. She is unable to sleep if the bed linens touch her foot. She has no problem with the nail in that foot. The pain is keeping her awake. Erik Frederick APRN [address] [place], [address], [employer] 12/02/2024 09:56:42 12/23/2024 text/html Diabetes F/UReported by PatientHPIFor context, patient reportshome blood sugar range highbut reportsseeing eye doctor regularly,checking feet regularly,taking aspirin daily,not missing doses of medications, andno side effects from medications. For associated symptoms, patient reportsweight gain (7 lbs)andconfusionbut reportsno dizziness,no sweats,no headaches,no increased appetite,no numbness of feet, andno calluses on feet. For review finger sticks, patient reportsfastinandpost dinner: 260. For labs, patient reportslast a1c result: 12.7.ROS as noted in the HPI Due for B 12 injection today, she has pernicious anemia.Daughter is administering insulin, denies hypoglycemia. Continues to follow closely with cardlogy for AFIB and valvular dz with CHF. She also has mild dementia. Recurrent yeast vaginitis as she was recently taking antx for cellulitis of the foot which has resolved. Erik Frederick APRN [address] [place], [address], [employer] 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 She is followed by Urology. Her urinary symptoms have been well-managed for the past several months, but she recently had to take a course of antibiotics due to a foot infection and she now has recurrence of her vaginitis symptoms with itching and painful urination. She is cared for by her daughter. She has also noted a new hernia on left side of abdomen that is aligned with her old midline abdominal hysterectomy scar. States she is straining to urinate frequently and just dribbling urine. Her vagina/labia is swollen and red with white d/c noted. The new hernia is not painful but is large and easily reducible. She is not an ideal surgical candidate due to dementia, DM2, smoking, CAD, CHF, AFIB and significant valvular disease. She also complains of frequent diarrhea for 3 weeks. Erik Frederick APRN [address] [place], [address], [employer] 01/07/2025 14:17:14 OBGyn Episode No OBEpisode recorded.
--- OUTSIDE RECORDS SUMMARY | 2025-03-14 14:10 | XMS_ITS | Encounter Summary ---
Author Organization [facility] Address [address] [place] [address] Care Team Providers Care Medicaid Eligibility Specialist Name Role Phone Cate Frederick APRN Primary Care Provider [phone] Encounter Details Date Type Department Care Team (Late st Contact Info) Description 03/05/2025 Telephone [facility] [address] [place] [address] Dayana Tavera Social History Tobacco Use Types Packs/Day Years [...] encounter Miscellaneous Notes * Telephone Encounter - Dayana Tavera - 03/05/2025 6:36 PM EDT Tried calling patient to give her Mary's message and ask her what she would like to. Left clinic information and asked patient to call the clinic back. documented in this encounter Plan of Treatment Upcoming Encounters Date Type Department Care Team (Late st Contact Info) Description 04/21/2025 2:20 PM EDT Office Visit [facility] [address] [place] [address] Marylou Laughlin MD [address] [place] [address] documented as of this encounter [...] documented as of this encounter Care Teams Medicaid Eligibility Specialist Relationship Specialty Start Date End Date Cate Frederick APRN [address] [place] [address] PCP - General 02/09/22 documented as of this encounter
--- OUTSIDE RECORDS SUMMARY | 2025-03-14 14:10 | XMS_ITS | Encounter Summary ---
Author Organization [facility] Address [address] [place] [address] Care Team Providers Care Equities Analyst Name Role Phone Cate Frederick APRN Primary Care Provider Encounter Details Date Type Department Care Team (Latest Contact Info) Description 02/17/2025 Travel Social History Tobacco Use Types Packs/Day [...] Description 04/21/2025 2:20 PM EDT Office Visit [facility] [address] [place] [address] Marylou Laughlin MD [address] [place] [address] documented as of this encounter [...] documented as of this encounter Care Teams Equities Analyst Relationship Specialty Start Date End Date Cate Frederick, MIGUEL [address] [place] [address] PCP - General 02/09/22 documented as of this encounter
--- OUTSIDE RECORDS SUMMARY | 2025-03-14 14:10 | XMS_ITS | Encounter Summary ---
Author Organization [facility] Address [address] [place] [address] Care Team Providers Care Printed Circuit Board Pcb Designer Name Role Phone Cate Frederick APRN Primary Care Provider [phone] Encounter Details Date Type Department Care Team (Latest Contact Info) Description 02/24/2025 Travel Social History Tobacco Use Types Packs/Day [...] Francisco LPN documented as of this encounter Plan of Treatment Upcoming Encounters Date Type Department Care Team (Late st Contact Info) Description 04/21/2025 2:20 PM EDT Office Visit [place] [facility] [address] [place] [address] Marylou Laughlin MD [address] [place] [address] documented as of this encounter [...] documented as of this encounter Care Teams Printed Circuit Board Pcb Designer Relationship Specialty Start Date End Date Cate Frederick APRN [address] [place] [address] PCP - General 02/09/22 documented as of this encounter
--- OUTSIDE RECORDS SUMMARY | 2025-03-14 14:10 | XMS_ITS | Encounter Summary ---
Author Organization [facility] Address [address] [place] [address] Care Team Providers Care Ammonia Still Operator Name Role Phone Cate [place] APRN Primary Care Provider Encounter Details Date Type Department Care Team (Latest Contact Info) Description 02/23/2025 Travel Social History Tobacco Use Types Packs/Day [...] Description 04/21/2025 2:20 PM EDT Office Visit [facility] [address], [address] [place] [address] Marylou Laughlin MD [address] [place] [address] documented as of this encounter [...] documented as of this encounter Care Teams Ammonia Still Operator Relationship Specialty Start Date End Date Cate [place], MIGUEL [address] [place] [address] PCP - General 02/09/22 documented as of this encounter
--- OUTSIDE RECORDS SUMMARY | 2025-03-14 14:10 | XMS_ITS | Encounter Summary ---
Author Organization [facility] Address [address] [place] [address] Care Team Providers Care Anglesmith Name Role Phone Cate [place] APRN Primary Care Provider Reason for Visit * Reason Onset Date Comments HCN Clinical Concern/Question 03/09/2025 Encounter Details Date Type Department Care Team (Late st Contact Info) Description 03/09/2025 Telephone [facility] [address], [address] [place] [address] Mary Cross APRN [address] [place] [address] HCN Clinical Concern/Question Social History Tobacco Use Types Packs/Day Years [...] encounter Miscellaneous Notes * Telephone Encounter - Chelsea Cole LPN - 03/10/2025 2:52 PM EDT Left patient's daughter a vm to give a call to the clinic. * Telephone Encounter - Andreina Church - 03/09/2025 4:10 PM EDT Clinical Concern/Question Reason for Call: Patient's daughter(Lorena) is calling she spoke to someone last week and they saidthey would get back to her after they talked to Mary Cross about what they wanted to do next. She is still having trouble going to the bathroom when she does go its just a little and she feels like she has to go all the time. Please call Lorena back with info. Thank you Best contact number: [phone] (mobile) Optimal time of day to reach caller: ANYTIME Additional comments/information from caller: None Note: Please do not reply to this message. Follow-up communication and further actions as a result of this message need to be communicated with the patient directly, if the patient is not active onMyChart. If the patient is active on MyChart, they will receive notification of the communication/outcome via [employer] [facility] [employer]. documented in this encounter Plan of Treatment Upcoming Encounters Date Type Department Care Team (Late st Contact Info) Description 04/21/2025 2:20 PM EDT Office Visit [facility] [address] [place] [address] Marylou Laughlin MD [address] [place] [address] documented as of this encounter [...] documented as of this encounter Care Teams Anglesmith Relationship Specialty Start Date End Date Cate [place], MIGUEL [address] [place] [address] PCP - General 02/09/22 documented as of this encounter
--- OUTSIDE RECORDS SUMMARY | 2025-03-14 14:10 | XMS_ITS | Encounter Summary ---
Author Organization [facility] Address [address] [place] [address] Care Team Providers Care Hydro Plant Technician Name Role Phone Cate [place] APRN Primary Care Provider Encounter Details Date Type Department Care Team (Latest Contact Info) Description 02/18/2025 Travel Social History Tobacco Use Types Packs/Day [...] Description 04/21/2025 2:20 PM EDT Office Visit [place] [facility] [address] [place] [address] Marylou Laughlin MD [address] [place] [address] documented as of this encounter [...] documented as of this encounter Care Teams Hydro Plant Technician Relationship Specialty Start Date End Date Cate [place], MIGUEL [address] [place] [address] PCP - General 02/09/22 documented as of this encounter
--- OUTSIDE RECORDS SUMMARY | 2025-03-14 14:10 | XMS_ITS | Encounter Summary ---
Author Organization [facility] Address [address] [place] [address] Care Team Providers Care Certified Retinal Angiographer Name Role Phone Cate [place] APRN Primary Care Provider [phone] Encounter Details Date Type Department Care Team (Latest Contact Info) Description 02/26/2025 Travel Social History Tobacco Use Types Packs/Day [...] Description 04/21/2025 2:20 PM EDT Office Visit [place] [facility] [address] [place] [address] Marylou Laughlin MD [address] [place] [address] documented as of this encounter [...] documented as of this encounter Care Teams Certified Retinal Angiographer Relationship Specialty Start Date End Date Cate [place], MIGUEL [address] [place] [address] PCP - General 02/09/22 documented as of this encounter
--- OUTSIDE RECORDS SUMMARY | 2025-03-14 14:10 | XMS_ITS | Encounter Summary ---
Author Organization [facility] Address [address] [place] [address] Care Team Providers Care Can Marker Name Role Phone Cate [place] APRN Primary Care Provider Encounter Details Date Type Department Care Team (Latest Contact Info) Description 02/22/2025 Travel Social History Tobacco Use Types Packs/Day [...] Office Visit [facility] [address], [address] [place] [address] Marylou Laughlin MD [address] [place] [address] documented as of this encounter [...] documented as of this encounter Care Teams Can Marker Relationship Specialty Start Date End Date Cate [place], MIGUEL [address] [place] [address] PCP - General 02/09/22 documented as of this encounter
[2025-03-14 14:24] LABS: Hematocrit 27.7 % (37.0-47.0); Hemoglobin 7.7 g/dL (12.2-16.2); Immature Granulocytes % 0.7 %; Mean Corpuscular HGB Conc 27.8 g/dL (31.8-35.4); Mean Corpuscular Hemoglobin 21.6 pg (27.0-31.2); Mean Corpuscular Volume 77.8 fl (81-99); Nucleated Red Blood Cells % 0 %; Platelet Count 323 K/mm3 (142-424); Red Blood Count 3.56 M/mm3 (4.20-5.40); Red Cell Distribution Width-SD 56.1 fL; White Blood Count 6.9 K/mm3 (4.8-10.8)
[2025-03-14] MEDS: ASPIRIN 81MG CHEWABLE TABLET 324 MG PO (14:25)
[2025-03-14 14:26] LABS: Albumin Level 4.0 g/dl (3.5-5.0); Chloride 102 mmol/L (98-107); Potassium 4.9 mmoL/L (3.5-5.1); Sodium 132 mmol/L (136-145)
[2025-03-14 14:29] LABS: Alanine Aminotransferase 20 U/L (12-78); Albumin/Globulin Ratio 1.1 (1.1-1.8); Alkaline Phosphatase 88 U/L (38-126); Anion Gap 12.9 mEq/L (5-15); Aspartate Amino Transferase 56 U/L (14-36); Bilirubin,Total 0.6 mg/dl (0.2-1.3); Blood Urea Nitrogen 12 mg/dl (7-17); Calcium 8.7 mg/dl (8.4-10.2); Carbon Dioxide 22 mmol/L (22.0-30.0); Creatinine Clearance Estimated 37 mL/min (50-200); Creatinine,Serum 1.00 mg/dl (0.52-1.04); Estimated Glomerular Filt Rate 53 ml/min (>60); GFR (African American) 64 ML/MIN (>60); Globulin 3.6 g/dL (1.3-3.2); Total Protein,Serum 7.6 g/dl (6.3-8.2)
--- NOTE | 2025-03-14 14:29 | HMH.EDCP ---
Discharge Plan Disposition Chief Complaint: Shortness of Breath/Dyspnea Prescriptions Prescriptions: No Action Tradjenta 5 mg tablet 5 mg PO DAILY Xarelto 15 mg tablet 15 mg PO QPMWITHMEAL Qty: 30 5RF (DME) blood-glucose meter [OneTouch Verio Flex meter] Mis See Rx Instructions .ROUTE .MEDSUPPLY Qty: 1 Patient Comments: test blood glucose twice a day Rx Instructions: As directed glipizide 5 mg tablet extended release 24hr 5 mg PO DAILY Patient Comments: TAKE ONE TABLET BY MOUTH EVERY MORNING FOR DIABETES (DME) OneTouch Verio test strips Strip See Rx Instructions .ROUTE .MEDSUPPLY Qty: 10 Patient Comments: Use as directed to check glucose twice daily Rx Instructions: As directed insulin glargine [Lantus Solostar U-100 Insulin] 100 unit/mL (3 mL) insulin pen 20 unit SQ HS Patient Comments: Inject 20 units every day by subcutaneous route at bedtime, for diabetes. (DME) pen needle, diabetic [BD Ultra-Fine Nai Pen Needle] 32 gauge x 5/32 needle See Rx Instructions .ROUTE .MEDSUPPLY Qty: 1200 Patient Comments: Use as directed with insulin Rx Instructions: As directed (DME) lancets [OneTouch Delica Plus Lancet] 33 gauge misc See Rx Instructions .ROUTE .MEDSUPPLY Qty: 100 Patient Comments: Use as directed to test blood glucose twice daily Rx Instructions: As directed digoxin 125 mcg (0.125 mg) tablet 125 mcg PO DAILY Qty: 30 6RF losartan 25 mg tablet 25 mg PO DAILY Qty: 30 2RF clopidogrel 75 MG tablet 75 mg PO DAILY amitriptyline 50 mg tablet 50 mg PO HS atorvastatin 40 mg tablet 40 mg PO HS Patient Comments: TAKE 1 TABLET BY MOUTH AT BEDTIME NIGHTLY Referrals Follow up/Referrals: Cate [place] [Primary Care Provider, Medical] - See instructions Print Language Print Language: Setswana Discharge ED Provider: Saul Fajardo General Chief Complaint: Shortness of Breath/Dyspnea Stated Complaint: SOA, weak Time Seen by Provider: 03/14/25 13:56 Mode of Arrival: Wheelchair Source of Information: Patient and Relative Description of Symptoms (Recalled from ER Triage Doc. by RN): pt is here bc she is having an increase in soa spells while out and about and moving, pt has a pacemaker and afib and is on plavix and xarelto, upon triage pt hr is noted to be going anywhere from 120-140 History of Present Illness HPI narrative: Patient is a 84-year-old female with past medical history of atrial fibrillation on anticoagulation, CHF, pulmonary arterial hypertension, history of ACS status post stenting who presents emergency department for evaluation of shortness of breath. Onset was acute over the last 7 days, worse with exertion. No trauma. No chest pain throughout the course. Her dyspnea on exertion has gotten much worse over the last 24 hours causing her to become concerned and present here for continued evaluation. No other acute complaints at this time. Please note that above description of symptoms, in this electronic medical record under categorization of recalled from ER triage doctor by RN are reflective of an initial nursing assessment, however, is not reflective of my full history and physical exam that was personally taken and clarified. Consequentially, this preceding description of symptoms, which may include the patient's categorized chief complaint in the EMR, do not reflect my personal clinical impression, and the ultimate description of history of present illness and patient stated complaints should be deferred to this section of the note. Unless stated otherwise or congruent with this section of the note, additional signs, symptoms, or incongruence should be interpreted as inaccurate with my clinical impression. Related Data Home Medications ?Medication ?Instructions ?Recorded ?Confirmed clopidogrel 75 mg tablet 75 mg PO DAILY 04/21/21 03/14/25 linagliptin 5 mg tablet (Tradjenta) 5 mg PO DAILY 08/15/22 03/14/25 amitriptyline 50 mg tablet 50 mg PO HS 05/03/24 03/14/25 blood sugar diagnostic (ViewpostTouch #10 ea 10/01/24 03/14/25 Verio test strips) blood-glucose meter (Next audienceuch #1 ea 10/01/24 03/14/25 Verio Flex Meter) glipizide 5 mg tablet, extended 5 mg PO DAILY 10/01/24 03/14/25 release 24 hr insulin glargine 100 unit/mL (3 20 unit SQ HS 10/01/24 03/14/25 mL) subcutaneous pen (Lantus Solostar U-100 Insulin) lancets 33 gauge (ViewpostTouch Delica #100 ea 10/01/24 03/14/25 Plus Lancet) pen needle, diabetic 32 gauge x #1,200 ea 10/01/24 03/14/25 (BD Ultra-Fine Nai Pen Needle) atorvastatin 40 mg tablet 40 mg PO HS 03/14/25 03/14/25 Previous Rx's ?Medication ?Instructions ?Recorded rivaroxaban 15 mg tablet (Xarelto) 15 mg PO QPMWITHMEAL #30 tabs 06/10/24 digoxin 125 mcg (0.125 mg) tablet 125 mcg PO DAILY #30 tabs 10/01/24 losartan 25 mg tablet 25 mg PO DAILY #30 tabs 11/18/24 Allergies Allergy/AdvReac Type Severity Reaction Status Date / Time Sulfa (Sulfonamide Allergy Unknown Unknown Verified 02/16/25 11:29 Antibiotics) allergy reaction Penicillins Allergy Other Verified 02/16/25 11:29 [facility] Disclaimer: The information contained in this section may have been updated after the patient was seen, as this information can be updated by other users. Medical History History of cardiac pacemaker in situ Implant APR 2024 Hypotension Atrial flutter Pre-syncope Descending thoracic aortic aneurysm Abnormal echocardiogram Diabetes mellitus Symptomatic bradycardia Dizziness Shortness of Breath Atypical angina COPD (chronic obstructive pulmonary disease) Hyperlipidemia Hypertension Aortic heart murmur Coronary artery disease Abnormal electrocardiogram [ECG] [EKG] Encounter for pre-operative cardiovascular clearance Surgical History History of coronary artery stent placement Family History Father Family history of myocardial infarction Social History Smoking Status: Current every day smoker tobacco type: cigarettes packs per day: 1 second hand exposure: Yes alcohol intake: never substance use type: denies use current occupational status: retired Travel in the last 8 weeks?: None household members: spouse housing: house current occupation: [employer] current occupational exposures/hazards: No caffeine: No Have you lived/traveled outside [place] in past 30 days?: No Contact w/someone who lives/traveled outside US past 30 days?: No Exposure to someone with infectious disease in past 14 days?: No Do you have a fever (greater than 100.4 F or 38 C)?: No Have you tested positive for COVID-19?: No Exposed to someone with COVID-19 in past 14 days?: No Do you have a sore throat?: No Do you have a cough?: No Do you have any weakness?: Yes Do you have any diarrhea?: No Are you experiencing any unusual bleeding?: No Do you have any muscle aches/pain?: No Do you have any abdominal pain?: No Are you experiencing loss of taste or smell?: No Other Medical History Have you received the Flu Vaccine for this season: No Have you received the Pneumonia Vaccine: Yes ROS Obtained: Yes Systems reviewed as appropriate & no additional complaints except as documented Physical Exam General General appearance: alert and in no apparent distress Head Head exam: atraumatic and normocephalic Eye Eye exam: Present PERRL and EOMI ENT ENT exam: Present mucous membranes moist Neck Neck exam: Present normal inspection Chest Chest inspection: Present normal inspection and symmetric chest wall rise Respiratory Respiratory exam: Present normal lung sounds bilaterally; Absent respiratory distress Cardiovascular Cardiovascular exam: Present tachycardia and irregular rhythm Abdominal Exam Abdominal exam: Present soft; Absent tenderness Extremities Exam Extremities exam: Present normal inspection; Absent edema Neurological Exam Neurological exam: Present alert Psychiatric Psychiatric exam: Present normal affect Skin Skin exam: Present warm and dry HEART Score HEART Score HEART Score assessment performed?: Yes History (anamnesis): Highly suspicious ECG: Significant ST-deviation Age: >65 years Risk factors: Atherosclerosis history Troponin: </= normal limit HEART Score: 8 Critical Care Critical Care Time Critical Care Time: Yes Attestation: On 03/14/25, the high probability of a clinically significant, sudden or life threatening deterioration of the following system(s) required my full and direct attention, intervention and personal management. The time I documented below is in addition to time spent performing reported procedures but includes the following listed in this critical care notation. Total Time Total Critical Care Time: 35 Medical Decision Making Edwardo Inquiry Pt receiving controlled substance: No Vital Signs Vital Signs: 03/14/25 14:05 Temperature 97.9 F Temperature Source Oral Pulse Rate [Left Radial] 129 H Respiratory Rate 20 Blood Pressure [Right Arm] 137/75 Blood Pressure Mean [Right Arm] 95 02 Sat by Pulse Oximetry 99 Oxygen Delivery Method Room Air Lab Data Labs: Lab Results 03/14/25 14:10: WBC 6.9, RBC 3.56 L, Hgb 7.7 L, Hct 27.7 L, MCV 77.8 L, MCH 21.6 L, MCHC 27.8 L, RDW 20.2 H, Plt Count 323, MPV 12.3 H, Neut % (Auto) 78.5, Lymph % (Auto) 15.8, Creek % (Auto) 4.1, Eos % (Auto) 0.3, Baso % (Auto) 0.6, Neut # (Auto) 5.4, Lymph # (Auto) 1.1, Creek # (Auto) 0.3, Eos # (Auto) 0.0, Baso # (Auto) 0.0, Sodium 132 L, Potassium 4.9, Chloride 102, Carbon Dioxide 22, Anion Gap 12.9, BUN 12, Creatinine 1.00, Estimated Creat Clear 37, Estimated GFR 53 L, Est GFR ( Amer) 64, Glucose 404 H*, Calcium 8.7, Total Bilirubin 0.6, AST 56 H, ALT 20, Alkaline Phosphatase 88, Troponin I 0.03, NT-Pro-B Natriuret Pep 7840 H, Total Protein 7.6, Albumin 4.0, Globulin 3.6 H, Albumin/Globulin Ratio 1.1, Digoxin 0.50 03/14/25 14:10 03/14/25 14:10 Response Orders (Tests/Meds): ED MEDICATIONS Generic Name Dose Route Start Last Admin Trade Name Freq PRN Reason Stop Dose Admin Amiodarone HCl 150 mg/ 103 mls @ 600 mls/hr 03/14/25 15:00 Dextrose IV 03/14/25 15:10 ONCE ONE Amiodarone HCl 900 mg/ 518 mls @ 34.533 mls/hr 03/14/25 15:00 Dextrose IV 03/15/25 06:00 .[id number] ABRAHAM Protocol 1 MG/MIN Metoprolol Tartrate 5 mg 03/14/25 14:27 03/14/25 14:42 Metoprolol Tartrate 5mg/5ml Vial IV 04/13/25 14:26 5 mg ONCE PRN Administration HR >115 Discontinued Medications Generic Name Dose Route Start Last Admin Trade Name Freq PRN Reason Stop Dose Admin Aspirin 324 mg 03/14/25 14:18 03/14/25 14:25 Aspirin 81mg Chewable Tablet PO 03/14/25 14:19 324 mg ONCE ONE Administration ORDERS Category Date Time Status XR chest portable Stat Exams 03/14/25 14:06 Taken BNP [NT Pro Brain Natriuretic Pep.] Stat Lab 03/14/25 14:10 Completed CBC w/Auto Diff [Complete Blood Count Auto Diff] Stat Lab 03/14/25 14:10 Completed CMP [Comprehensive Metabolic Panel] Stat Lab 03/14/25 14:10 Completed Digoxin Stat Lab 03/14/25 14:10 Completed Thyroid Panel Stat Lab 03/14/25 14:10 Received Trop I [Troponin I] Stat Lab 03/14/25 14:10 Completed Troponin I Q3H Lab 03/14/25 17:15 Ordered Troponin I Q3H Lab 03/14/25 20:15 Ordered ECG Data Tracing #1: ECG Narrative: Independently interpreted by me ST elevation in the septal leads with ST depression that is scooping in the lateral and inferior leads. QTc 340. Atrial fibrillation with rapid ventricular response. Tracing #2: ECG Narrative: Independently interpreted by me rate is 103 rhythm is irregular, axis is normal, minimal ST elevation in septal leads with improving ST depression in the lateral and inferior leads. QTc 365. MDM Narrative Medical Decision Narrative: In summary patient is 84-year-old female with past medical history described above who presents emergency department for evaluation of dyspnea on exertion. Patient is hemodynamically stable nontoxic-appearing upon arrival, atrial fibrillation with rapid ventricular response. Her EKG is concerning for STEMI. I discussed case with Dr. Doss, he suspects that this is rate driven ischemia with combined digoxin effect and is not reflective of an acute STEMI. Given this we will proceed with first dose of metoprolol to limit the rapid ventricular sponsor which is intermittently spiking into the 140s which is likely causing rate dependent ischemia until her digoxin level results and we can initiate amiodarone bolus and drip. Push dose of metoprolol administered given that she is not externally significantly volume overloaded no oxygen requirement no overt decompensated heart failure currently with resultant heart rate consistently below 120 sometimes into the 90s. Not concern for pulmonary embolism given that patient is on anticoagulation. Differential diagnosis includes A-fib with RVR, worsening CHF, among others. Repeat EKG shows improving ischemic changes in the lateral leads with a rate of 103. Sugar is elevated at 404 without elevated anion gap, corrected sodium normal. BNP elevated at 7800 will convert to amiodarone bolus and drip dosed by pharmacy. Case discussed with hospital medicine regarding management they admit the patient to service for continued evaluation at this time.
[2025-03-14 14:31] LABS: Glucose 404 mg/dl (74-100)
[2025-03-14] MEDS: METOPROLOL TARTRATE 5MG/5ML VIAL 5 MG IV ×2 (14:34→14:42)
[2025-03-14 14:36] LABS: Digoxin 0.50 ng/ml (0.2-2.00)
[2025-03-14 14:39] LABS: NT Pro Brain Natriuretic Pep. 7840 pg/mL (0-450)
[2025-03-14 14:41] LABS: Troponin I 0.03 ng/ml (0.00-0.034)
--- NOTE | 2025-03-14 14:48 | ECG_ITS ---
APPROVED REPORT Exam: Resting ECG HR:103 bpm ECG Measurements Heart Rate 103 AXES QRSd 87 QRS 36 QT 306 T 206 QTc 365 Conclusion ATRIAL FIBRILLATION WITH RAPID VENTRICULAR RESPONSE ANTEROSEPTAL MYOCARDIAL INFARCTION , OF INDETERMINATE AGE [40+ ms Q WAVE IN V1-V4] ST DEVIATION AND MODERATE T-WAVE ABNORMALITY, CONSIDER LATERAL ISCHEMIA [-0.1+ mV T-WAVE IN I/aVL/V5/V6] ABNORMAL ECG UNCONFIRMED REPORT Electronically signed by : ZITA OSEI, 03/16/2025 03:51:33
[2025-03-14] MEDS: AMIODARONE HCL 150 MG in DEXTROSE 5 % IN WATER 100 ML 600 MG IV (14:57)
--- NOTE | 2025-03-14 14:59 | EXP.HP ---
History of Present Illness *Admission Date: 03/14/25 *Reason for visit:: dizziness, tachycardia *History of present illness: Ms. Skelton is an 84-year-old with history of A-fib/a flutter, pacemaker dependent, dementia, HFpEF, CAD, diabetes who presented to the ER because of worsening episodes over the past week of dizziness and weakness when she stands. States she just has not been feeling well. Having a hard time elaborating. Family at bedside helps supplement history. They state that over the past week each time she gets up she has been feeling more fatigued and unsteady. She has not been eating very well. She has been taking her medications as family observes her take her pills and administers her insulin. Came to the ER for further evaluation due to her progressing symptoms. On arrival she was found to be in A-fib RVR. Initially started on metoprolol and transition to amiodarone after consultation with cardiology. Patient stable on room air. Denies chest pain, shortness of breath, nausea or vomiting. Family does report that she has a wheeze when she gets up and this has been observed by nursing. Denies any chest pain after arriving to the unit. Heart rate remains in the low 100s. In a flutter/A-fib on telemetry. Stable on room air. Afebrile. States she is not currently taking a diuretic. Family at bedside. They help to supplement history and presentation. [facility] Disclaimer: The information contained in this section may have been updated after the patient was seen, as this information can be updated by other users. Medical History History of cardiac pacemaker in situ Hypotension Atrial flutter Pre-syncope Descending thoracic aortic aneurysm Abnormal echocardiogram Diabetes mellitus Symptomatic bradycardia Dizziness Shortness of Breath Atypical angina COPD (chronic obstructive pulmonary disease) Hyperlipidemia Hypertension Aortic heart murmur Coronary artery disease Abnormal electrocardiogram [ECG] [EKG] Encounter for pre-operative cardiovascular clearance Surgical History History of coronary artery stent placement Family History Father Family history of myocardial infarction Social History Smoking Status: Current every day smoker tobacco type: cigarettes packs per day: 1 second hand exposure: Yes alcohol intake: never substance use type: denies use current occupational status: retired Travel in the last 8 weeks?: None household members: spouse housing: house current occupation: [employer] current occupational exposures/hazards: No caffeine: No Have you lived/traveled outside [place] in past 30 days?: No Contact w/someone who lives/traveled outside [place] past 30 days?: No Exposure to someone with infectious disease in past 14 days?: No Do you have a fever (greater than 100.4 F or 38 C)?: No Have you tested positive for COVID-19?: No Exposed to someone with COVID-19 in past 14 days?: No Do you have a sore throat?: No Do you have a cough?: No Do you have any weakness?: Yes Do you have any diarrhea?: No Are you experiencing any unusual bleeding?: No Do you have any muscle aches/pain?: No Do you have any abdominal pain?: No Are you experiencing loss of taste or smell?: No Other Medical History Have you received the Flu Vaccine for this season: No Have you received the Pneumonia Vaccine: Yes Review of Systems Review of Systems Review of systems (narrative): 14 point review of systems performed, pertinent positives and negatives as per HPI Meds Home Medications and Allergies Home Medications ?Medication ?Instructions ?Recorded ?Confirmed ?Type clopidogrel 75 mg tablet 75 mg PO DAILY 04/21/21 03/14/25 History linagliptin 5 mg tablet (Tradjenta) 5 mg PO DAILY 08/15/22 03/14/25 History amitriptyline 50 mg tablet 50 mg PO HS 05/03/24 03/14/25 History rivaroxaban 15 mg tablet (Xarelto) 15 mg PO QPMWITHMEAL #30 tabs 06/10/24 03/14/25 Rx blood sugar diagnostic (OneTouch #10 ea 10/01/24 03/14/25 History Verio test strips) blood-glucose meter (OneTouch #1 ea 10/01/24 03/14/25 History Verio Flex Meter) digoxin 125 mcg (0.125 mg) tablet 125 mcg PO DAILY #30 tabs 10/01/24 03/14/25 Rx glipizide 5 mg tablet, extended 5 mg PO DAILY 10/01/24 03/14/25 History release 24 hr insulin glargine 100 unit/mL (3 20 unit SQ HS 10/01/24 03/14/25 History mL) subcutaneous pen (Lantus Solostar U-100 Insulin) lancets 33 gauge (OneTouch Delica #100 ea 10/01/24 03/14/25 History Plus Lancet) pen needle, diabetic 32 gauge x #1,200 ea 10/01/24 03/14/25 History (BD Ultra-Fine Nai Pen Needle) losartan 25 mg tablet 25 mg PO DAILY #30 tabs 11/18/24 03/14/25 Rx atorvastatin 40 mg tablet 40 mg PO HS 03/14/25 03/14/25 History New Prescriptions to Start Prescriptions: Allergies Allergy/AdvReac Type Severity Reaction Status Date / Time Sulfa (Sulfonamide Allergy Unknown Unknown Verified 02/16/25 11:29 Antibiotics) allergy reaction Penicillins Allergy Other Verified 02/16/25 11:29 Exam Data for Last 24 hours Vital signs and Labs for Last 24 Hours: Temp Pulse Resp BP Pulse Ox O2 Del Method 97.9 F 129 H 20 137/75 99 Room Air 03/14/25 14:05 03/14/25 14:05 03/14/25 14:05 03/14/25 14:05 03/14/25 14:05 03/14/25 14:05 Laboratory Results - last 24 hr 03/14/25 14:10: WBC 6.9, RBC 3.56 L, Hgb 7.7 L, Hct 27.7 L, MCV 77.8 L, MCH 21.6 L, MCHC 27.8 L, RDW 20.2 H, Plt Count 323, MPV 12.3 H, Neut % (Auto) 78.5, Lymph % (Auto) 15.8, Scurry % (Auto) 4.1, Eos % (Auto) 0.3, Baso % (Auto) 0.6, Neut # (Auto) 5.4, Lymph # (Auto) 1.1, Scurry # (Auto) 0.3, Eos # (Auto) 0.0, Baso # (Auto) 0.0, Sodium 132 L, Potassium 4.9, Chloride 102, Carbon Dioxide 22, Anion Gap 12.9, BUN 12, Creatinine 1.00, Estimated Creat Clear 37, Estimated GFR 53 L, Est GFR ( Amer) 64, Glucose 404 H*, Calcium 8.7, Total Bilirubin 0.6, AST 56 H, ALT 20, Alkaline Phosphatase 88, Troponin I 0.03, NT-Pro-B Natriuret Pep 7840 H, Total Protein 7.6, Albumin 4.0, Globulin 3.6 H, Albumin/Globulin Ratio 1.1, Digoxin 0.50 I & O for Last 24 hours: Intake & Output 03/11/25 03/12/25 03/13/25 03/14/25 23:59 23:59 23:59 23:59 Weight 56.699 kg Constitutional Constitutional: no acute distress, thin and cooperative *Routine HEENT Exam Head: Present normocephalic Eye: Present EOMI and PERRL ENT: Present mucous membranes moist *Routine Neck Exam Neck: Present supple; Absent lymphadenopathy Routine Chest/Breast/Axilla Exam Chest wall: Present pacemaker *Routine Respiratory Exam Respiratory: Present CTA bilaterally and crackles (Faint crackles bases posterior lung); Absent rhonchi or wheezes *Routine Cardiovascular Exam Cardiovascular: Present tachycardia and irregular rhythm *Routine Abdominal Exam Abdominal: Present soft and normoactive bowel sounds; Absent tenderness *Routine Rectal Exam Rectal:: deferred *Routine Genitalia Exam Genitalia:: deferred *Routine Extremities Exam Extremities: Absent cyanosis, clubbing or edema Comments: Chronic venous stasis skin changes. *Routine Skin Exam Skin: Present warm; Absent rash Comments: Small skin tear right anterior segura *Routine Neurological Exam Neurological: Present alert and moving all extremities; Absent altered mental status Comments: Oriented to self, defaults questions to family. Unable to provide significant history. When asked why she is at the hospital, states she just feels bad. Cannot elaborate further. Pleasant on exam. Assessment and Plan *Assessment and plan (1) Atrial flutter: Status: Acute Qualifiers: Atrial flutter type: unspecified Qualified Code(s): I48.92 - Unspecified atrial flutter Category: Medical Code(s): I48.92 - Unspecified atrial flutter (2) Pre-syncope: Status: Acute Category: Medical Code(s): R55 - Syncope and collapse (3) Hypotension: Status: Acute Qualifiers: Hypotension type: hypotension due to drug Qualified Code(s): I95.2 - Hypotension due to drugs Category: Medical Code(s): I95.9 - Hypotension, unspecified (4) Hypertension: Status: Acute Qualifiers: Hypertension type: primary hypertension Qualified Code(s): I10 - Essential (primary) hypertension Category: Medical Code(s): I10 - Essential (primary) hypertension (5) Dizziness: Status: Resolved Category: Medical Code(s): R42 - Dizziness and giddiness (6) Asystole: Status: Resolved Category: Medical Code(s): I46.9 - Cardiac arrest, cause unspecified (7) Symptomatic bradycardia: Status: Acute Category: Medical Code(s): R00.1 - Bradycardia, unspecified (8) Dementia: Status: Acute Qualifiers: Dementia behavioral or psychological symptom: unspecified whether behavioral, psychotic, or mood disturbance or anxiety Dementia severity: unspecified severity Dementia type: unspecified type Qualified Code(s): F03.90 - Unspecified dementia, unspecified severity, without behavioral disturbance, psychotic disturbance, mood disturbance, and anxiety Category: Medical Code(s): F03.90 - Unspecified dementia, unspecified severity, without behavioral disturbance, psychotic disturbance, mood disturbance, and anxiety Plan Patient is a 84-year-old female with a history significant for LAD s/p stent, HFpEF, symptomatic bradycardia (resolved after cardiac stent), TIA with no residual weakness, hypertension, insulin-dependent diabetes who presented with dizziness and recurring episodes of weakness over the past week. She had similar episodes back in the fall that led to pacemaker placement for tachybradycardia syndrome. Found to be in a flutter on arrival to the ER. Concern for CHF exacerbation with elevated BNP of 7800. Discussed case with ER physician, request admission for treatment with amiodarone drip after consultation with cardiology. I decided to admit to the stepdown unit for further management. Stable on room air. Necessitating inpatient care. Problems addressed as follows: # dizziness #Tachybradycardia syndrome #A-flutter # Pacemaker in situ ? Increased episodes of dizziness and weakness when tries to get up over the past week. BNP 7800 on presentation. Troponin 0.03. Dig level 0.5. Per my review of EKG patient is in a flutter. - Cardiology consulted in the ER, recommended amiodarone bolus and drip. - Admitted to stepdown unit for further care - Cardiology to evaluate in the morning - Repeat echo pending. Patient had biatrial dilation and preserved ejection fraction on echo from April - Continue digoxin 125 mcg daily -Will administer 1 dose of Lasix 40 mg IV due to elevated BNP. Monitor fluid level/volume Has anemia that is worsening on presentation. Hemoglobin 7.7, MCV 77. Consistent with iron deficiency. Down 2 points from several months ago. Will hold on transfusion but consider in the morning if no improvement with diuresis. Administer 200 mg Venofer in the morning -Repeat CBC, CMP, magnesium ordered for the morning. #Hypertension ? Blood pressure intermittently soft. Will hold losartan. - Reevaluate blood pressure needs today # CAD s/p LAD stent 04/2024 #History of TIA ? Continuing Xarelto 15 mg daily and Plavix 75 mg daily. Continue Lipitor 40mg hs. #Type 2 diabetes ? A1c is increased to 8.1 from 6.8 last April. Glucose elevated at 404 on presentation. Takes her diabetes regimen with glipizide 5 mg daily and insulin glargine 20 units nightly along with linagliptin 5 mg daily. - Resume linagliptin and glargine - Will hold glipizide during admission due to risk for hypoglycemia. - Fingersticks ACHS with sliding scale insulin. LDSSI, ACHS glucose check. CODE STATUS: Full code Diet: Cardiac/diabetic Xarelto 15 mg daily
--- NOTE | 2025-03-14 14:59 | PC.NURSE ---
hotel services supervisor contacted for bed.
--- NOTE | 2025-03-14 15:00 | HMH.PHAINT1 ---
Pharmacy Intervention Comments: MEDICATION RECONCILIATION COMPLETED ON PATIENT USING EXTERNAL FILL HISTORY FROM PHARMACY AND LIST FROM CARDIOLOGY OFFICE. -FAZAL MURO, DEEPAD
[2025-03-14 15:01] LABS: Free Thyroxine Index 3.0 ug/dL (5.93-13.13); T4 (Thyroxine) 8.1 ug/dl (5.53-11.0); Triiodothryronine (T3) Uptake 37 % (23.5-40.5)
[2025-03-14] MEDS: AMIODARONE HCL 900 MG in DEXTROSE 5 % IN WATER 500 ML 34.53 MG IV (15:19)
[2025-03-14 15:43] LABS: Thyroid Stimulating Hormone 2.10 uIU/mL (0.465-4.68)
--- NOTE | 2025-03-14 15:53 | PC.WOUNDNOTE ---
Left lower forearm Skin tear Right lower leg open wound. Pt states the doctor removed Cancer from that spot about two weeks ago. Left lower forearm skin tear
[2025-03-14] MEDS: humaLOG 100 UNITS/ML 10ML VIAL (SSI) SUBCUT ×2 (16:14→20:15)
[2025-03-14 16:48] LABS: Hemoglobin A1C 8.1 % (4.0-6.0)
--- NOTE | 2025-03-14 17:20 | PC.NURSE ---
its noted while patient stands that she becomes real short of breath and anxious. she starts making audible wheezing noises and states neck and face start to feel warm. bp remained stable however it was noted that heart rate dropped significantly enough that pacemaker started steadily pacing until she was back resting and heart rate increased back to 80-105. after a couple minutes the sensation passes. md is aware. nail slovenian removed from one finger and pulse ox applied with sat 100%. lungs sound clear for the most part on auscultation. family is at bedside. patient is alert to name place but struggles with time. encouraged family and patient to ring out as needed.
[2025-03-14] MEDS: FUROSEMIDE 40MG/4ML VIAL 40 MG IV (17:31)
--- NOTE | 2025-03-14 17:35 | PC.NURSE ---
Patient son relayed that he had POA paperwork for patient. will bring in copy tomorrow.
[2025-03-14 17:48] LABS: Troponin I 0.02 ng/ml (0.00-0.034)
[2025-03-14] MEDS: ATORVASTATIN 40MG TABLET 40 MG PO (20:17)
[2025-03-14] MEDS: INSULIN GLARGINE 100 UNITS/ML 3ML FLEXPEN 20 UNIT SUBCUT (20:17)
[2025-03-14] MEDS: ACETAMINOPHEN 325MG TAB 650 MG PO (21:06)
--- NOTE | 2025-03-14 21:07 | PC.NURSE ---
Patient left upper extremity skin tears x3 noted, dressings removed and cleaned with NS and applied Telfa non-adhesive dressing applied and wrapped in Kerlex and secured with Tape. Patient also has a Arterial Ulcer to the right lower extremity to the anterior segura region. Dressing in clean dry and intact. Silicone dressing re-secured in place. Pending wound care to evaluate and give recommendations.
[2025-03-14 21:14] LABS: Troponin I 0.02 ng/ml (0.00-0.034)
[2025-03-15] VITALS (45 sets, daily range): BP systolic 108–141; BP diastolic 46–83; PULSE 62–116; RESP 10–23; TEMP 36.4–37.1; O2SAT 93–100; BMI 20.9
[2025-03-15 06:08] LABS: Hematocrit 24.9 % (37.0-47.0); Immature Granulocytes % 0.7 %; Mean Corpuscular HGB Conc 26.9 g/dL (31.8-35.4); Mean Corpuscular Hemoglobin 21.0 pg (27.0-31.2); Mean Corpuscular Volume 78.1 fl (81-99); Nucleated Red Blood Cells % 0 %; Platelet Count 206 K/mm3 (142-424); Red Blood Count 3.19 M/mm3 (4.20-5.40); Red Cell Distribution Width-SD 55.9 fL; White Blood Count 6.1 K/mm3 (4.8-10.8)
[2025-03-15 06:16] LABS: Hemoglobin 6.7 g/dL (12.2-16.2)
[2025-03-15 06:39] LABS: Alanine Aminotransferase 17 U/L (12-78); Albumin Level 3.4 g/dl (3.5-5.0); Albumin/Globulin Ratio 1.3 (1.1-1.8); Alkaline Phosphatase 87 U/L (38-126); Anion Gap 13.5 mEq/L (5-15); Aspartate Amino Transferase 34 U/L (14-36); Bilirubin,Total 0.2 mg/dl (0.2-1.3); Blood Urea Nitrogen 12 mg/dl (7-17); Calcium 8.6 mg/dl (8.4-10.2); Carbon Dioxide 22 mmol/L (22.0-30.0); Chloride 103 mmol/L (98-107); Creatinine Clearance Estimated 38 mL/min (50-200); Creatinine,Serum 1.00 mg/dl (0.52-1.04); Estimated Glomerular Filt Rate 53 ml/min (>60); GFR (African American) 64 ML/MIN (>60); Globulin 2.7 g/dL (1.3-3.2); Glucose 185 mg/dl (74-100); Magnesium 1.9 mg/dl (1.6-2.3); Potassium 3.5 mmoL/L (3.5-5.1); Sodium 135 mmol/L (136-145); Total Protein,Serum 6.1 g/dl (6.3-8.2)
--- NOTE | 2025-03-15 06:40 | PC.NURSE ---
Spoke with patients daughter Lorena this morning on the phone in reference to patients hemoglobin being low and MD wanting to transfuse RBC. Daughter spoke with myself, Garima GAXIOLA, and Jg RN to give telephone consent for blood transfusion. Both RNs signed paper consent.
[2025-03-15] MEDS: IRON SUCROSE COMPLEX 200 MG in 0.9 % SODIUM CHLORIDE 100 ML 220 MG IV (08:22)
[2025-03-15] MEDS: CLOPIDOGREL 75MG TAB 75 MG PO (08:23)
[2025-03-15] MEDS: SODIUM CHLORIDE 0.9% 10ML VIAL 10 ML IV ×2 (08:23→20:24)
[2025-03-15] MEDS: PANTOPRAZOLE 40MG VIAL 40 MG IV ×2 (08:23→20:23)
[2025-03-15] MEDS: DIGOXIN 0.125MG TABLET 125 MCG PO (08:24)
[2025-03-15 09:02] LABS: Vitamin B12 437 pg/mL (239-931)
[2025-03-15 09:58] LABS: POC Glucose,Bedside 380 (70-110)
[2025-03-15 09:58] LABS: POC Glucose,Bedside 307 (70-110)
[2025-03-15 09:58] LABS: POC Glucose,Bedside 186 (70-110)
--- NOTE | 2025-03-15 10:14 | HMH.OTEV ---
OT Inpatient Evaluation Rehab OT IP Evaluation Start: 03/15/25 08:00 Freq: ONCE Status: Active Protocol: Document 03/15/25 10:09 [facility] (Rec: 03/15/25 10:14 [facility] [id number]) Rehab OT IP Assessment Subjective History Pt oriented x 3 on arrival. Pt agreeable to engage in therapy evaluation. Pt admitted on 03/14/25 due to RVR A-fib. History and physical: Ms. Skelton is an 84-year-old with history of A-fib/a flutter, pacemaker dependent, dementia, HFpEF, CAD, diabetes who presented to the ER because of worsening episodes over the past week of dizziness and weakness when she stands. States she just has not been feeling well. Having a hard time elaborating. Family at bedside helps supplement history. They state that over the past week each time she gets up she has been feeling more fatigued and unsteady. She has not been eating very well. She has been taking her medications as family observes her take her pills and administers her insulin. Came to the ER for further evaluation due to her progressing symptoms. On arrival she was found to be in A-fib RVR. Initially started on metoprolol and transition to amiodarone after consultation with cardiology. Patient stable on room air. Denies chest pain, shortness of breath, nausea or vomiting. Family does report that she has a wheeze when she gets up and this has been observed by nursing. Denies any chest pain after arriving to the unit. Heart rate remains in the low 100s. In a flutter/A-fib on telemetry. Stable on room air. Afebrile. States she is not currently taking a diuretic. Family at bedside. They help to supplement history and presentation. Subjective Pt reports she lived at home alone prior to being in the hospital. Pt claims she is normally independent with all ADLs and IADLs. 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 Pt does not use any type of AE during functional transfers. Objective Patient Orientation Person,Place,Birthday Right Upper WFL Extremity Gross ROM Left Upper Extremity WFL Gross ROM Bed Mobility bed mobility-scooting,bed mobility - supine/sit Assist Level Supervision/Stand by Transfer Training Sit/Stand Transfer Assist Level Supervision/Stand by Lower Body Dressing Standby Assistance Ability Performing Toilet Standby Assistance Hygiene Ability Overall Commode/ Standby Assistance Toilet Transfer Ability Commode/Toilet Sit to/from Ambulatory Transfer Technique Rehab OT IP prob,goals,plan Problems Date of Evaluation: 03/15/25 Rehab Potential Rehab Potential Innapropriate for Skilled Therapy Discharge Plan OT Discharge Plan Pt appears to be at her baseline with functional transfers and ADL independence. Pt can return home once she is medically stable per physician. Eval Complexity Eval Charge Codes 45641 - Moderate Complexity PHYSICIAN CERTIFICATION: I certify the specified therapy services for Claribel Skelton are required, authorized, and reviewed every 30 days.
[2025-03-15 11:09] LABS: POC Glucose,Bedside 287 (70-110)
[2025-03-15 11:11] LABS: Iron 27 ug/dL (37-170)
[2025-03-15] MEDS: humaLOG 100 UNITS/ML 10ML VIAL (SSI) SUBCUT ×2 (11:11→20:24)
[2025-03-15 11:23] LABS: Total Iron Binding Capacity 251 ug/dL (265-497)
--- NOTE | 2025-03-15 11:32 | HMH.PTEV ---
Physical Therapy Evaluation Rehab PT IP Evaluation Start: 03/15/25 08:00 Freq: ONCE Status: Active Protocol: Document 03/15/25 11:30 [facility] (Rec: 03/15/25 11:32 [facility] [id number]) Subjective/History History History 84-year-old with history of A-fib/a flutter, pacemaker dependent, dementia, HFpEF, CAD, diabetes who presented to the ER because of worsening episodes over the past week of dizziness and weakness when she stands. States she just has not been feeling well. Having a hard time elaborating. Family at bedside helps supplement history. They state that over the past week each time she gets up she has been feeling more fatigued and unsteady. She has not been eating very well. She has been taking her medications as family observes her take her pills and administers her insulin. Came to the ER for further evaluation due to her progressing symptoms . On arrival she was found to be in A-fib RVR. Initially started on metoprolol and transition to amiodarone after consultation with cardiology. Patient stable on room air. Denies chest pain, shortness of breath, nausea or vomiting. 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 Subjective Subjective Pt reports feeling better and has no c/o at this time. Agrees to mobility assessment. [facility] How much help from another person do you currently need... Turning from your None back to your side while in a flat bed without using bedrails? Moving from lying on None back to sitting on the side of a flat bed without using bedrails? Moving to and from a None bed to a chair ( including a wheelchair)? Standing up from a None chair using your arms? (e.g., wheelchair, bedside chair) Walking in hospital None room? Climbing 3-5 steps None with a railing? Mobility Score 24 Mobility Level [facility] Mobility Walk 250 feet or more Mobility Calculator Rehab PT IP Eval Objective Appearance Patient Behavior Appropriate Patient Orientation Person,Place,Time Difficulty following none instructions Speech Pattern Clear Ambulation Patient Able to Yes Ambulate Ambulation Observation IP General Gait No Deviations/Normal Pattern Observation Ambulation Distance 50 (feet) Ambulation Assistive None Device Ambulation Ability Supervision/Stand by Balance Ability to Arise Able, uses arms to help Sitting Balance Steady, safe Standing Balance Steady, wide stance Dynamic Sitting Good Balance Ability Dynamic Standing Fair Balance Ability Transfers Bed Transfer Ability Supervision/Stand by Chair Transfer Supervision/Stand by Ability Sit to Stand Bed Supervision/Stand by Transfer Ability Sit to Stand Chair Supervision/Stand by Transfer Ability Rehab PT IP prob,goals,plan Problems Date of Evaluation: 03/15/25 Discharge Plan PT Discharge Plan Pt is appropriate to return home with family once medically stable for d/c. Currently no need for skilled acute therapy services. Eval Complexity Eval Charge Codes 57473 - High Complexity PHYSICIAN CERTIFICATION: I certify the specified therapy services for Claribel Skelton are required, authorized, and reviewed every 30 days.
[2025-03-15 11:51] LABS: Ferritin 8.27 ng/ml (11.1-264)
--- NOTE | 2025-03-15 11:55 | EXP.ACUTE.PN ---
Subjective *Date: 03/15/25 *Time: 17:12 Interval history: Patient on room air this morning. States she is feeling much better. Heart rate better controlled in the 60s and 70s. Denies chest pain or shortness of breath. No nausea or vomiting. Hemoglobin dropped, will transfuse today. Medical Exam Vital signs and Labs for Last 24 Hours: Vital Signs Temp Pulse Pulse Pulse Resp BP BP 03/15/25 11:45 98.1 F 95 H 16 116/71 03/15/25 11:30 98.4 F 67 16 118/54 L 03/15/25 11:15 98.2 F 77 16 120/67 03/15/25 11:00 98.4 F 74 16 129/46 L 03/15/25 10:55 03/15/25 10:55 98.1 F 79 16 132/68 03/15/25 10:50 98.5 F 90 16 141/49 H 03/15/25 10:45 98.4 F 89 18 140/67 03/15/25 10:27 98.2 F 84 18 120/62 03/15/25 09:09 03/15/25 08:24 82 03/15/25 08:15 64 23 03/15/25 08:00 80 03/15/25 08:00 97.7 F 100 H 20 115/64 03/15/25 08:00 100 H 20 03/15/25 08:00 03/15/25 07:45 74 21 03/15/25 07:30 74 21 03/15/25 07:15 72 13 03/15/25 07:00 80 19 03/15/25 06:45 67 14 03/15/25 06:31 03/15/25 06:30 71 18 03/15/25 06:15 75 11 L 03/15/25 06:00 116/53 L 03/15/25 06:00 82 15 03/15/25 05:45 76 14 03/15/25 05:30 75 18 03/15/25 05:15 62 11 L 03/15/25 05:00 03/15/25 04:00 66 10 L 109/54 L 03/15/25 04:00 84 03/15/25 04:00 97.5 F L 77 20 109/54 L 03/15/25 04:00 70 03/15/25 03:00 07/28/25 02:00 97.5 F L 74 19 114/65 03/15/25 01:00 03/15/25 00:00 78 15 108/57 L 03/15/25 00:00 98.1 F 71 18 108/57 L 03/15/25 00:00 75 03/14/25 22:55 03/14/25 22:00 78 24 107/52 L 03/14/25 20:27 03/14/25 20:01 98.5 F 68 17 111/45 L 03/14/25 20:00 03/14/25 20:00 70 03/14/25 20:00 70 03/14/25 19:27 87 18 121/70 03/14/25 19:01 87 16 109/63 L 03/14/25 18:46 03/14/25 17:12 105 H 26 H 03/14/25 17:12 131/60 03/14/25 17:00 03/14/25 16:51 60 20 03/14/25 16:51 106/50 L 03/14/25 16:49 98/54 L 03/14/25 16:49 75 14 03/14/25 16:48 113/64 03/14/25 16:18 105 H 03/14/25 16:16 97.9 F 03/14/25 16:05 74 20 03/14/25 16:05 133/72 03/14/25 15:55 100 H 03/14/25 15:31 98.2 F 95 H 24 92/60 L 03/14/25 15:21 92/60 L 03/14/25 15:21 79 18 03/14/25 15:00 110 H 12 107/73 L 03/14/25 14:40 101 H 15 121/64 03/14/25 14:05 97.9 F 129 H 20 137/75 03/14/25 14:00 137 H 137/75 Pulse Ox O2 Del Method O2 Flow Rate 03/15/25 11:45 97 03/15/25 11:30 95 03/15/25 11:15 97 03/15/25 11:00 96 03/15/25 10:55 Room Air 03/15/25 10:55 99 03/15/25 10:50 93 L 03/15/25 10:45 96 03/15/25 10:27 100 03/15/25 09:09 Room Air 03/15/25 08:24 03/15/25 08:15 99 03/15/25 08:00 03/15/25 08:00 99 Room Air 03/15/25 08:00 99 03/15/25 08:00 Room Air 03/15/25 07:45 97 03/15/25 07:30 100 03/15/25 07:15 100 03/15/25 07:00 97 03/15/25 06:45 99 03/15/25 06:31 Room Air 03/15/25 06:30 99 03/15/25 06:15 98 03/15/25 06:00 03/15/25 06:00 98 03/15/25 05:45 98 03/15/25 05:30 98 03/15/25 05:15 99 03/15/25 05:00 Room Air 98 03/15/25 04:00 95 03/15/25 04:00 99 Room Air 03/15/25 04:00 98 Room Air 03/15/25 04:00 03/15/25 03:00 Room Air 03/15/25 02:00 98 03/15/25 01:00 Room Air 03/15/25 00:00 98 03/15/25 00:00 100 Room Air 03/15/25 00:00 03/14/25 22:55 Room Air 03/14/25 22:00 100 03/14/25 20:27 Room Air 03/14/25 20:01 100 Room Air 03/14/25 20:00 Room Air 03/14/25 20:00 Room Air 03/14/25 20:00 03/14/25 19:27 100 Room Air 03/14/25 19:01 98 Room Air 03/14/25 18:46 Room Air 03/14/25 17:12 100 03/14/25 17:12 03/14/25 17:00 Room Air 03/14/25 16:51 90 L 03/14/25 16:51 03/14/25 16:49 03/14/25 16:49 93 L 03/14/25 16:48 03/14/25 16:18 98 Room Air 03/14/25 16:16 03/14/25 16:05 03/14/25 16:05 03/14/25 15:55 03/14/25 15:31 Room Air 03/14/25 15:21 03/14/25 15:21 92 L 03/14/25 15:00 99 03/14/25 14:40 100 03/14/25 14:05 99 Room Air 03/14/25 14:00 100 Intake and Output 03/14/25 03/15/25 03/15/25 23:59 07:59 15:59 Intake Total 452.756 / 572.756 120 / 220 100 / 220 Output Total 600 / 600 600 / 600 Balance -147.244 / -27.244 -480 / -380 100 / -380 Intake: Intake, Oral Amount 245 / 365 120 / 120 Intake, Total IV Amount 207.756 / 207.756 100 / 100 Iron Sucrose Complex 200 mg In 100 / 100 0.9 % Sodium Chloride 100 ml @ 220 mls/hr IV ONCE ONE Rx#: [id number] Intake (Blood Product) Amt 0 / 0 Red Blood Cells Unit 0 / 0 [id number] Output: Output, Urine Amount 600 / 600 600 / 600 Other: Number of Unmeasured Voids 1 Weight 57.198 kg Patient Weight 03/15/25 23:59 Weight 57.198 kg Laboratory Results - last 24 hr 03/14/25 14:10: WBC 6.9, RBC 3.56 L, Hgb 7.7 L, Hct 27.7 L, MCV 77.8 L, MCH 21.6 L, MCHC 27.8 L, RDW 20.2 H, Plt Count 323, MPV 12.3 H, Neut % (Auto) 78.5, Lymph % (Auto) 15.8, [place] % (Auto) 4.1, Eos % (Auto) 0.3, Baso % (Auto) 0.6, Neut # (Auto) 5.4, Lymph # (Auto) 1.1, [place] # (Auto) 0.3, Eos # (Auto) 0.0, Baso # (Auto) 0.0, Sodium 132 L, Potassium 4.9, Chloride 102, Carbon Dioxide 22, Anion Gap 12.9, BUN 12, Creatinine 1.00, Estimated Creat Clear 37, Estimated GFR 53 L, Est GFR ( Amer) 64, Glucose 404 H*, Hemoglobin A1c 8.1 H, Calcium 8.7, Total Bilirubin 0.6, AST 56 H, ALT 20, Alkaline Phosphatase 88, Troponin I 0.03, NT-Pro-B Natriuret Pep 7840 H, Total Protein 7.6, Albumin 4.0, Globulin 3.6 H, Albumin/Globulin Ratio 1.1, TSH 2.10, Free T4 Index 3.0 L, Thyroxine (T4) 8.1, T3 Uptake 37, Digoxin 0.50 03/14/25 16:11: POC Glucose 380 H* 03/14/25 17:20: Troponin I 0.02 03/14/25 20:05: POC Glucose 307 H* 03/14/25 20:33: Troponin I 0.02 03/15/25 05:45: WBC 6.1, RBC 3.19 L, Hgb 6.7 L*, Hct 24.9 L, MCV 78.1 L, MCH 21.0 L, MCHC 26.9 L, RDW 20.2 H, Plt Count 206 D, MPV 11.2 H, Neut % (Auto) 57.2, Lymph % (Auto) 33.8, [place] % (Auto) 6.6, Eos % (Auto) 1.0, Baso % (Auto) 0.7, Neut # (Auto) 3.5, Lymph # (Auto) 2.1, [place] # (Auto) 0.4, Eos # (Auto) 0.1, Baso # (Auto) 0.0, Sodium 135 L, Potassium 3.5 D, Chloride 103, Carbon Dioxide 22, Anion Gap 13.5, BUN 12, Creatinine 1.00, Estimated Creat Clear 38, Estimated GFR 53 L, Est GFR ( Amer) 64, Glucose 185 H D, Calcium 8.6, Magnesium 1.9, Total Bilirubin 0.2, AST 34 D, ALT 17, Alkaline Phosphatase 87, Total Protein 6.1 L, Albumin 3.4 L D, Globulin 2.7, Albumin/Globulin Ratio 1.3 03/15/25 06:17: POC Glucose 186 H 03/15/25 07:28: Iron 27 L, TIBC 251 L, Iron Saturation 10.19002 L, Ferritin 8.27 L, Vitamin B12 437, Blood Type A Negative, Antibody Screen Negative, Crossmatch (AHG) See Detail 03/15/25 11:03: POC Glucose 287 H 03/15/25 : Blood Type Confirm A Negative I & O for Labs for Last 24 Hours: Intake & Output 03/12/25 03/13/25 03/14/25 03/15/25 23:59 23:59 23:59 23:59 Intake Total 452.756 / 572.756 220 / 220 Output Total 600 / 600 600 / 600 Balance -147.244 / -27.244 -380 / -380 Weight 56.699 kg 57.198 kg Constitutional: Present no acute distress, average body habitus and chronically ill appearing Head: Present atraumatic and normocephalic Respiratory: Present normal respiratory effort; Absent rhonchi, wheezes or crackles Cardiac: Present Regular Rate and Irregularly Regular GI: Present normal bowel sounds; Absent tenderness Extremities: Present normal inspection and full ROM; Absent edema Skin: Present intact; Absent erythema Neuro: Present Grossly Intact, alert, awake and moves all extremities Comment:: Oriented to self, knows she is in the hospital. Poor historian Assessment and Plan *Assessment and plan (1) Atrial flutter: Status: Acute Qualifiers: Atrial flutter type: unspecified Qualified Code(s): I48.92 - Unspecified atrial flutter Category: Medical Code(s): I48.92 - Unspecified atrial flutter (2) Pre-syncope: Status: Acute Category: Medical Code(s): R55 - Syncope and collapse (3) Hypotension: Status: Acute Qualifiers: Hypotension type: hypotension due to drug Qualified Code(s): I95.2 - Hypotension due to drugs Category: Medical Code(s): I95.9 - Hypotension, unspecified (4) Hypertension: Status: Acute Qualifiers: Hypertension type: primary hypertension Qualified Code(s): I10 - Essential (primary) hypertension Category: Medical Code(s): I10 - Essential (primary) hypertension (5) Dizziness: Status: Acute Category: Medical Code(s): R42 - Dizziness and giddiness (6) Asystole: Status: Resolved Category: Medical Code(s): I46.9 - Cardiac arrest, cause unspecified (7) Symptomatic bradycardia: Status: Acute Category: Medical Code(s): R00.1 - Bradycardia, unspecified (8) Dementia: Status: Acute Qualifiers: Dementia type: unspecified type Dementia severity: unspecified severity Dementia behavioral or psychological symptom: unspecified whether behavioral, psychotic, or mood disturbance or anxiety Qualified Code(s): F03.90 - Unspecified dementia, unspecified severity, without behavioral disturbance, psychotic disturbance, mood disturbance, and anxiety Category: Medical Code(s): F03.90 - Unspecified dementia, unspecified severity, without behavioral disturbance, psychotic disturbance, mood disturbance, and anxiety Plan Patient is a 84-year-old female with a history significant for LAD s/p stent, HFpEF, symptomatic bradycardia (resolved after cardiac stent), TIA with no residual weakness, hypertension, insulin-dependent diabetes who presented with dizziness and recurring episodes of weakness over the past week. She had similar episodes back in the fall that led to pacemaker placement for tachybradycardia syndrome. Found to be in a flutter on arrival to the ER. Concern for CHF exacerbation with elevated BNP of 7800. Discussed case with ER physician, request admission for treatment with amiodarone drip after consultation with cardiology. I decided to admit to the stepdown unit for further management. Stable on room air. Necessitating inpatient care. Problems addressed as follows: # dizziness #Tachybradycardia syndrome #A-flutter # Pacemaker in situ ? Increased episodes of dizziness and weakness when tries to get up over the past week. BNP 7800 on presentation. Troponin 0.03. Dig level 0.5. Per my review of EKG patient is in a flutter. - Discussed case with cardiology, recommend transitioning to oral amiodarone. Continue 4 mg twice daily. Echo obtained showing low normal EF of 50%. Moderate hypokinesis of the septal and anteroseptal and inferoseptal LV jacobson that is stable compared to previous echoes. - Continue digoxin 125 mcg daily - Will administer additional dose of Lasix in between blood transfusion today. Acute on chronic anemia -Hemoglobin dropped to 6.7 from 7.7 on admission. Chronic hemoglobin around 9. Will transfuse 2 units today. Dose of Lasix 40 mg IV once in between units. -Denies priscila bloody stools or black tarry stools. No active signs of bleeding -Holding Xarelto today - Administer 200 mg Venofer today -Repeat CBC, CMP, magnesium ordered for the morning. #Hypertension ? Blood pressure intermittently soft. Will hold losartan. - Reevaluate blood pressure needs in the morning # CAD s/p LAD stent 04/2024 #History of TIA ? Holding Xarelto, continue Plavix 75 mg daily. Continue Lipitor 40mg hs. #Type 2 diabetes ? A1c is increased to 8.1 from 6.8 last April. Glucose elevated at 404 on presentation. - Morning glucose 185. Continue insulin glargine 20 units nightly and linagliptin 5 mg daily - Will hold glipizide during admission due to risk for hypoglycemia. - Fingersticks ACHS with sliding scale insulin. LDSSI, ACHS glucose check. CODE STATUS: Full code Diet: Cardiac/diabetic Holding anticoagulation due to blood loss/worsening anemia.
--- NOTE | 2025-03-15 12:13 | SW/DCPLANNER ---
PT states that patient is alright to go home. Patient has no needs at this time.
[2025-03-15] MEDS: AMIODARONE 200MG TABLET 400 MG PO ×2 (12:30→20:24)
[2025-03-15] MEDS: AMIODARONE HCL 900 MG in DEXTROSE 5 % IN WATER 500 ML 17.27 MG IV (12:40)
[2025-03-15] MEDS: FUROSEMIDE 40MG/4ML VIAL 40 MG IV (13:18)
--- NOTE | 2025-03-15 14:09 | EXP.CARD.CON ---
History of Present Illness History of Present Illness Consult date: 03/15/25 Chief complaint: dizziness, tachycardia History of present illness: Hospitalist note: Ms. Skelton is an 84-year-old with history of A-fib/a flutter, pacemaker dependent, dementia, HFpEF, CAD, diabetes who presented to the ER because of worsening episodes over the past week of dizziness and weakness when she stands. States she just has not been feeling well. Having a hard time elaborating. Family at bedside helps supplement history. They state that over the past week each time she gets up she has been feeling more fatigued and unsteady. She has not been eating very well. She has been taking her medications as family observes her take her pills and administers her insulin. Came to the ER for further evaluation due to her progressing symptoms. On arrival she was found to be in A-fib RVR. Initially started on metoprolol and transition to amiodarone after consultation with cardiology. Patient stable on room air. Denies chest pain, shortness of breath, nausea or vomiting. Family does report that she has a wheeze when she gets up and this has been observed by nursing. Denies any chest pain after arriving to the unit. Heart rate remains in the low 100s. In a flutter/A-fib on telemetry. Stable on room air. Afebrile. States she is not currently taking a diuretic. Family at bedside. They help to supplement history and presentation. Cardiology note: This morning patient remains in afib but at a controlled rate since initiation of amiodarone drip. She denies dizziness, chest pain or soa. Hemoglobin today has further dropped to 6.7 from 7.7 yesterday. History of iron deficiency anemia. Denies any priscila bleeding or black/tarry stools. Serial trops remain negative. Digoxin level normal. Type and crossed to recieved 2 units today. Echo pending. [facility] Disclaimer: The information contained in this section may have been updated after the patient was seen, as this information can be updated by other users. Medical History (Updated 03/15/25 @ 14:26 by Aria Vera APRN) Dizziness History of cardiac pacemaker in situ Hypotension Atrial flutter Pre-syncope Descending thoracic aortic aneurysm Abnormal echocardiogram Diabetes mellitus Symptomatic bradycardia Shortness of Breath Atypical angina COPD (chronic obstructive pulmonary disease) Hyperlipidemia Hypertension Aortic heart murmur Coronary artery disease Abnormal electrocardiogram [ECG] [EKG] Encounter for pre-operative cardiovascular clearance Surgical History History of coronary artery stent placement Family History Father Family history of myocardial infarction Social History Smoking Status: Current every day smoker tobacco type: cigarettes packs per day: 1 second hand exposure: Yes alcohol intake: never substance use type: denies use current occupational status: retired Travel in the last 8 weeks?: None household members: spouse housing: house current occupation: [employer] current occupational exposures/hazards: No caffeine: No Have you lived/traveled outside [place] in past 30 days?: No Contact w/someone who lives/traveled outside [place] past 30 days?: No Exposure to someone with infectious disease in past 14 days?: No Do you have a fever (greater than 100.4 F or 38 C)?: No Have you tested positive for COVID-19?: No Exposed to someone with COVID-19 in past 14 days?: No Do you have a sore throat?: No Do you have a cough?: No Do you have any weakness?: Yes Do you have any diarrhea?: No Are you experiencing any unusual bleeding?: No Do you have any muscle aches/pain?: No Do you have any abdominal pain?: No Are you experiencing loss of taste or smell?: No Review of Systems Review of Systems Review of systems:: pertinent systems reviewed and negative unless documented below Constitutional Comments: dizziness *Cardiovascular Cardiovascular: Denies chest pain and Denies dyspnea *Respiratory Respiratory: Denies dyspnea Exam Data for Last 24 hours Vital signs and Labs for Last 24 Hours: Temp Pulse Resp BP Pulse Ox O2 Del Method O2 Flow Rate 98.2 F 87 16 132/72 99 Room Air 98 03/15/25 13:25 03/15/25 13:25 03/15/25 13:25 03/15/25 13:25 03/15/25 13:25 03/15/25 13:00 03/15/25 05:00 Laboratory Results - last 24 hr 03/14/25 14:10: WBC 6.9, RBC 3.56 L, Hgb 7.7 L, Hct 27.7 L, MCV 77.8 L, MCH 21.6 L, MCHC 27.8 L, RDW 20.2 H, Plt Count 323, MPV 12.3 H, Neut % (Auto) 78.5, Lymph % (Auto) 15.8, [place] % (Auto) 4.1, Eos % (Auto) 0.3, Baso % (Auto) 0.6, Neut # (Auto) 5.4, Lymph # (Auto) 1.1, [place] # (Auto) 0.3, Eos # (Auto) 0.0, Baso # (Auto) 0.0, Sodium 132 L, Potassium 4.9, Chloride 102, Carbon Dioxide 22, Anion Gap 12.9, BUN 12, Creatinine 1.00, Estimated Creat Clear 37, Estimated GFR 53 L, Est GFR ( Amer) 64, Glucose 404 H*, Hemoglobin A1c 8.1 H, Calcium 8.7, Total Bilirubin 0.6, AST 56 H, ALT 20, Alkaline Phosphatase 88, Troponin I 0.03, NT-Pro-B Natriuret Pep 7840 H, Total Protein 7.6, Albumin 4.0, Globulin 3.6 H, Albumin/Globulin Ratio 1.1, TSH 2.10, Free T4 Index 3.0 L, Thyroxine (T4) 8.1, T3 Uptake 37, Digoxin 0.50 03/14/25 16:11: POC Glucose 380 H* 03/14/25 17:20: Troponin I 0.02 03/14/25 20:05: POC Glucose 307 H* 03/14/25 20:33: Troponin I 0.02 03/15/25 05:45: WBC 6.1, RBC 3.19 L, Hgb 6.7 L*, Hct 24.9 L, MCV 78.1 L, MCH 21.0 L, MCHC 26.9 L, RDW 20.2 H, Plt Count 206 D, MPV 11.2 H, Neut % (Auto) 57.2, Lymph % (Auto) 33.8, [place] % (Auto) 6.6, Eos % (Auto) 1.0, Baso % (Auto) 0.7, Neut # (Auto) 3.5, Lymph # (Auto) 2.1, [place] # (Auto) 0.4, Eos # (Auto) 0.1, Baso # (Auto) 0.0, Sodium 135 L, Potassium 3.5 D, Chloride 103, Carbon Dioxide 22, Anion Gap 13.5, BUN 12, Creatinine 1.00, Estimated Creat Clear 38, Estimated GFR 53 L, Est GFR ( Amer) 64, Glucose 185 H D, Calcium 8.6, Magnesium 1.9, Total Bilirubin 0.2, AST 34 D, ALT 17, Alkaline Phosphatase 87, Total Protein 6.1 L, Albumin 3.4 L D, Globulin 2.7, Albumin/Globulin Ratio 1.3 03/15/25 06:17: POC Glucose 186 H 03/15/25 07:28: Iron 27 L, TIBC 251 L, Iron Saturation 10.28926 L, Ferritin 8.27 L, Vitamin B12 437, Blood Type A Negative, Antibody Screen Negative, Crossmatch (AHG) See Detail 03/15/25 11:03: POC Glucose 287 H 03/15/25 : Blood Type Confirm A Negative I & O for Last 24 hours: Intake & Output 03/12/25 03/13/25 03/14/25 03/15/25 23:59 23:59 23:59 23:59 Intake Total 452.756 / 572.756 531 / 531 Output Total 600 / 600 600 / 600 Balance -147.244 / -27.244 -69 / -69 Weight 125 lb 126 lb 1.6 oz Constitutional Constitutional: no acute distress *Routine Respiratory Exam Respiratory: Present CTA bilaterally and symmetric chest movement *Routine Cardiovascular Exam Cardiovascular: Present RRR, Normal S1, Normal S2, irregular rhythm and irregularly irregular *Routine Abdominal Exam Abdominal: Present soft and normoactive bowel sounds; Absent tenderness *Routine Extremities Exam Extremities: Present full ROM and normal capillary refill; Absent edema *Routine Skin Exam Skin: Present intact, dry and warm Detailed Neck Exam: Thyroids Thyroid: Absent bruit Meds Home Medications and Allergies Home Medications ?Medication ?Instructions ?Recorded ?Confirmed ?Type clopidogrel 75 mg tablet 75 mg PO DAILY 04/21/21 03/14/25 History linagliptin 5 mg tablet (Tradjenta) 5 mg PO DAILY 08/15/22 03/14/25 History amitriptyline 50 mg tablet 50 mg PO HS 05/03/24 03/14/25 History rivaroxaban 15 mg tablet (Xarelto) 15 mg PO QPMWITHMEAL #30 tabs 06/10/24 03/14/25 Rx blood sugar diagnostic (OneTouch #10 ea 10/01/24 03/14/25 History Verio test strips) blood-glucose meter (OneTouch #1 ea 10/01/24 03/14/25 History Verio Flex Meter) digoxin 125 mcg (0.125 mg) tablet 125 mcg PO DAILY #30 tabs 10/01/24 03/14/25 Rx glipizide 5 mg tablet, extended 5 mg PO DAILY 10/01/24 03/14/25 History release 24 hr insulin glargine 100 unit/mL (3 20 unit SQ HS 10/01/24 03/14/25 History mL) subcutaneous pen (Lantus Solostar U-100 Insulin) lancets 33 gauge (OneTouch Delica #100 ea 10/01/24 03/14/25 History Plus Lancet) pen needle, diabetic 32 gauge x #1,200 ea 10/01/24 03/14/25 History 5/32 (BD Ultra-Fine Nai Pen Needle) losartan 25 mg tablet 25 mg PO DAILY #30 tabs 11/18/24 03/14/25 Rx atorvastatin 40 mg tablet 40 mg PO HS 03/14/25 03/14/25 History New Prescriptions to Start Prescriptions: Allergies Allergy/AdvReac Type Severity Reaction Status Date / Time Sulfa (Sulfonamide Allergy Unknown Unknown Verified 02/16/25 11:29 Antibiotics) allergy reaction Penicillins Allergy Other Verified 02/16/25 11:29 Assessment and Plan *Assessment and plan (1) Atrial fibrillation with rapid ventricular response: Status: Acute Category: Medical Code(s): I48.91 - Unspecified atrial fibrillation (2) Anemia: Status: Acute Qualifiers: Anemia type: unspecified type Qualified Code(s): D64.9 - Anemia, unspecified Category: Medical Code(s): D64.9 - Anemia, unspecified Plan Dizziness Paroxysmal atrial fibrillation status post pacemaker A-fib RVR on presentation Patient remains in A-fib but rate controlled on amiodarone drip Digoxin level normal Implant summary report day from 03/14/2025: 3% AT/AF burden with 13 episodes of high ventricular rates detected on 03/14/2025. EGM suggest A. tach A-fib with RVR 185 Continue digoxin and amiodarone at this time. If patient converts to normal sinus rhythm can stop digoxin. If patient remains in A-fib but rate controlled can continue both digoxin and amiodarone. Continue Xarelto 15 mg p.o. daily 03/07/2025 shows a low normal EF of 50%, moderate hypokinesis of the septal, anteroseptal and inferoseptal LV jacobson-reviewed this with Dr. Agosto who states these WMAs were present on older echoes and are not new but were technically difficult at that time so they were not clearly seen or commented on. Biatrial dilation, moderate MR, mild TR and aortic valve sclerosis but not significant stenosis. Trivial pericardial effusion present. History of coronary artery disease [facility] 04/2024:EDSON to LAD and RCA Serial Trops negative EKG negative for stemi- Reviewed by Dr. Doss Continue Plavix 75 mg p.o. daily and statin Chronic iron deficiency anemia Hemoglobin 7.7 on admission and dropping down to 6.7 today Denies priscila bleeding, black or tarry stools 2 units to be transfused today CV summary 03/15/2025: EF 50%. No new wall motion abnormalities present on echocardiogram. Serial troponins remain negative. Patient is currently rate controlled A-fib with both digoxin and amiodarone. Will continue both medications unless patient converts to normal sinus rhythm in which case we will drop the digoxin. Cardiology will continue to monitor.
--- NOTE | 2025-03-15 15:55 | PC.NURSE ---
arrived by w/c from ICU
--- NOTE | 2025-03-15 16:07 | PC.NURSE ---
patient left the ICU room 264 via wheelchair to go to [facility] room 207 @1550 with NIC and RN
--- NOTE | 2025-03-15 16:29 | CA_ITS ---
APPROVED REPORT EXAM: Comprehensive 2D, Doppler, and color-flow Echocardiogram Musculoskeletal Physician: Roxann Moreira CRT Ht: 5 ft 5 in Wt: 125lbs BSA: 1.62 BP: 115/53 mmHg Indications: Congestive Heart Failure, COPD, Shortness of Breath, Atrial Fibrillation, Diabetes, CAD, Hyperlipidemia, Hypertension/HDD, pacemaker 2D Dimensions LA Volume 76.10 mL LA Volume Index 45.80 mL/m2 (M/F) 16-34 M-Mode Dimensions RVDd 1.98 cm (0.9-2.6) LA Diam 3.82 cm (1.9-4.0) LVDd 4.51 cm (3.5-5.7) LVDs 3.28 cm (3.5-5.7) IVSd 1.72 cm (0.6-1.1) PWd 1.18 cm (0.6-1.1) EF (Teich) 53.20% FS 27.30% EDV (Teich) 92.90 mL TAPSE 0.75 (<1.7) ESV (Teich) 43.50 mL LV Diastology E Decel Time 190 (160-240 msec) E/A Ratio 3.26 MED A' 2.20 cm/s LAT A' 3.90 cm/s Aortic Valve FLEX Index 0.81 cm2/m2 AoV Peak Ron. 283.0 (50-130 cm/s) AO Peak GR. 36.40 mmHg AO Mean GR. 20.20 (<5 mmHg) AO VTI 49.0 (18-25 cm) FLEX (VTI) 1.34 (2.5-4.5 cm2) Mitral Valve MV E Max Ron. 110.0 (40-130 cm/s) MV A Velocity 34.0 (40-130 cm/s) E/A Ratio 3.26 MV PHT 56.0 ms Pulmonary Valve PV Peak Velocity 93.0 (50-150 cm/s) Tricuspid Valve TR P. Velocity 243.00 cm/s RAP Estimate 10.00 mmHg RVSP 33.60 mmHg Left Ventricle The left ventricle is normal size. The left ventricular systolic function is low-normal. There is increased LV wall thickness. There is moderate hypokinesis of the septal, anteroseptal, and inferoseptal LV jacobson. Diastolic function is indeterminate. LVEF is 50%. Right Ventricle The right ventricle is normal size. The right ventricular systolic function is normal. Atria Left atrium is severely dilated. Right atrium is moderately dilated. There is no Doppler evidence of interatrial shunt. Aortic Valve The aortic valve is mildly thickened. Aortic sclerosis is present, but no evidence of hemodynamically significant aortic valvular stenosis. Trace aortic regurgitation. Mitral Valve The mitral valve is mildly thickened. No evidence of mitral valve stenosis. Moderate mitral regurgitation. Tricuspid Valve Tricuspid valve is grossly normal in structure and function. Mild tricuspid regurgitation. RVSP is 20-25 mmHg. Pulmonic Valve The pulmonary valve is normal in structure. Trace pulmonic regurgitation. Great Vessels The aortic root is normal in size. IVC is normal in size and collapses >50% with inspiration. Pericardium Trivial, anterior pericardial effusion is present. No echo indications of tamponade. Other Information Study Quality: Fair Conclusion Low-normal LV systolic function (LVEF 50%). Moderate hypokinesis of the septal, anteroseptal, and inferoseptal LV jacobson. Biatrial dilation. Moderate MR. Mild TR. Aortic valve sclerosis (but no significant aortic stenosis) Trivial, anterior pericardial effusion. Electronically signed by : Triny Mao MD 03/15/2025 13:09:30
[2025-03-15 18:33] LABS: Hematocrit 35.0 % (37.0-47.0)
[2025-03-15 19:20] LABS: Hemoglobin 10.7 g/dL (12.2-16.2)
[2025-03-15 20:00] LABS: POC Glucose,Bedside 423 (70-110)
[2025-03-15] MEDS: ATORVASTATIN 40MG TABLET 40 MG PO (20:24)
[2025-03-15] MEDS: INSULIN GLARGINE 100 UNITS/ML 3ML FLEXPEN 20 UNIT SUBCUT (20:24)
[2025-03-16] VITALS: PULSE 110
[2025-03-16 04:00] VITALS: BP 136/68; PULSE 60; PULSE 97; RESP 17; TEMP 36.4; O2SAT 95
[2025-03-16 05:32] LABS: POC Glucose,Bedside 160 (70-110)
[2025-03-16] MEDS: humaLOG 100 UNITS/ML 10ML VIAL (SSI) SUBCUT ×2 (06:04→11:57)
[2025-03-16 06:36] LABS: Hematocrit 31.4 % (37.0-47.0); Immature Granulocytes % 1.4 %; Mean Corpuscular HGB Conc 30.6 g/dL (31.8-35.4); Mean Corpuscular Hemoglobin 23.6 pg (27.0-31.2); Mean Corpuscular Volume 77.3 fl (81-99); Nucleated Red Blood Cells % 0.3 %; Platelet Count 219 K/mm3 (142-424); Red Blood Count 4.06 M/mm3 (4.20-5.40); Red Cell Distribution Width-SD 52.7 fL; White Blood Count 7.0 K/mm3 (4.8-10.8)
[2025-03-16 06:38] LABS: Hemoglobin 9.7 g/dL (12.2-16.2)
[2025-03-16 06:42] LABS: Alanine Aminotransferase 22 U/L (12-78); Albumin Level 3.5 g/dl (3.5-5.0); Albumin/Globulin Ratio 1.3 (1.1-1.8); Alkaline Phosphatase 94 U/L (38-126); Anion Gap 10.4 mEq/L (5-15); Aspartate Amino Transferase 34 U/L (14-36); Bilirubin,Total 0.7 mg/dl (0.2-1.3); Blood Urea Nitrogen 15 mg/dl (7-17); Calcium 8.4 mg/dl (8.4-10.2); Carbon Dioxide 26 mmol/L (22.0-30.0); Chloride 103 mmol/L (98-107); Creatinine Clearance Estimated 34 mL/min (50-200); Creatinine,Serum 1.10 mg/dl (0.52-1.04); Estimated Glomerular Filt Rate 47 ml/min (>60); GFR (African American) 57 ML/MIN (>60); Globulin 2.8 g/dL (1.3-3.2); Glucose 161 mg/dl (74-100); Magnesium 1.9 mg/dl (1.6-2.3); Potassium 3.4 mmoL/L (3.5-5.1); Sodium 136 mmol/L (136-145); Total Protein,Serum 6.3 g/dl (6.3-8.2)
[2025-03-16 08:00] VITALS: BP 126/57; PULSE 60; RESP 18; TEMP 36.7; O2SAT 99
[2025-03-16 08:23] LABS: Folate 8.13 ng/mL
[2025-03-16] MEDS: PANTOPRAZOLE 40MG TABLET 40 MG PO (08:42)
[2025-03-16 08:43] VITALS: PULSE 60
[2025-03-16] MEDS: DIGOXIN 0.125MG TABLET 125 MCG PO (08:43)
[2025-03-16] MEDS: CLOPIDOGREL 75MG TAB 75 MG PO (08:43)
[2025-03-16] MEDS: AMIODARONE 200MG TABLET 400 MG PO (08:43)
--- NOTE | 2025-03-16 09:31 | P.PN_ITS ---
Subjective Subjective Date: 03/16/25 Time: 08:00 Principal diagnosis: afib rvr Interval history: Patient doing well this morning. She denies chest pain or shortness of breath. Vitals are stable. Patient maintaining oxygen saturation of 99% on room air. Patient converted to normal sinus rhythm. Morning labs reviewed and stable. Exam Data for Last 24 hours Vital signs and Labs for Last 24 Hours: Temp Pulse Resp BP Pulse Ox O2 Del Method O2 Flow Rate 98.0 F 60 18 126/57 L 99 Room Air 98 03/16/25 08:00 03/16/25 08:43 03/16/25 08:00 03/16/25 08:00 03/16/25 08:00 03/16/25 08:00 03/15/25 05:00 Laboratory Results - last 24 hr 03/14/25 16:11: POC Glucose 380 H* 03/14/25 20:05: POC Glucose 307 H* 03/15/25 06:17: POC Glucose 186 H 03/15/25 07:28: Iron 27 L, TIBC 251 L, Iron Saturation 10.81833 L, Ferritin 8.27 L, Blood Type A Negative, Antibody Screen Negative, Crossmatch (AHG) See Detail 03/15/25 11:03: POC Glucose 287 H 03/15/25 18:26: Hgb 10.7 L D, Hct 35.0 L 03/15/25 19:51: POC Glucose 423 H* 03/15/25 : Blood Type Confirm A Negative 03/16/25 05:25: POC Glucose 160 H 03/16/25 05:26: WBC 7.0, RBC 4.06 L D, Hgb 9.7 L, Hct 31.4 L, MCV 77.3 L, MCH 23.6 L, MCHC 30.6 L, RDW 19.3 H, Plt Count 219, MPV 11.4 H, Neut % (Auto) 69.2, Lymph % (Auto) 21.1, Daniels % (Auto) 6.7, Eos % (Auto) 1.0, Baso % (Auto) 0.6, Neut # (Auto) 4.9, Lymph # (Auto) 1.5, Daniels # (Auto) 0.5, Eos # (Auto) 0.1, Baso # (Auto) 0.0, Sodium 136, Potassium 3.4 L, Chloride 103, Carbon Dioxide 26, Anion Gap 10.4, BUN 15, Creatinine 1.10 H, Estimated Creat Clear 34, Estimated GFR 47 L, Est GFR ( Amer) 57 L, Glucose 161 H, Calcium 8.4, Magnesium 1.9, Total Bilirubin 0.7, AST 34, ALT 22 D, Alkaline Phosphatase 94, Total Protein 6.3, Albumin 3.5, Globulin 2.8, Albumin/Globulin Ratio 1.3, Folate 8.13 I & O for Last 24 hours: Intake & Output 03/13/25 03/14/25 03/15/25 03/16/25 23:59 23:59 23:59 23:59 Intake Total 452.756 / 167.692 4734.053 / 1187.053 120 / 120 Output Total 600 / 600 1200 / 1200 0 / 0 Balance -147.244 / -27.244 -12.947 / -12.947 120 / 120 Weight 125 lb 126 lb 1.6 oz Constitutional Constitutional: no acute distress *Routine Respiratory Exam Respiratory: Present CTA bilaterally and symmetric chest movement *Routine Cardiovascular Exam Cardiovascular: Present RRR, Normal S1 and Normal S2 *Routine Abdominal Exam Abdominal: Present soft and normoactive bowel sounds; Absent tenderness *Routine Extremities Exam Extremities: Present full ROM and normal capillary refill; Absent edema *Routine Skin Exam Skin: Present intact, dry and warm Detailed Neck Exam: Thyroids Thyroid: Absent bruit Progress Note: A&P Assessment and plan (1) Atrial flutter: Status: Acute (2) Pre-syncope: Status: Acute (3) Hypotension: Status: Acute (4) Hypertension: Status: Acute (5) Dizziness: Status: Acute (6) Asystole: Status: Resolved (7) Symptomatic bradycardia: Status: Acute (8) Dementia: Status: Acute Assessment and Plan Assessment and Plan for All Diagnoses:: Dizziness Paroxysmal atrial fibrillation status post pacemaker A-fib RVR on presentation Implant summary report day from 03/14/2025: 3% AT/AF burden with 13 episodes of high ventricular rates detected on 03/14/2025. EGM suggest A. tach A-fib with RVR 185 03/07/2025 shows a low normal EF of 50%, moderate hypokinesis of the septal, anteroseptal and inferoseptal LV jacobson-reviewed this with Dr. Agosto who states these WMAs were present on older echoes and are not new but were technically difficult at that time so they were not clearly seen or commented on. Biatrial dilation, moderate MR, mild TR and aortic valve sclerosis but not significant stenosis. Trivial pericardial effusion present. Patient converted to NSR last night Continue Xarelto 15 mg p.o. daily Stop digoxin. Continue Amiodarone 400 po BID. History of coronary artery disease [facility] 04/2024:EDSON to LAD and RCA Serial Trops negative EKG negative for stemi- Reviewed by Dr. Doss Continue Plavix 75 mg p.o. daily and statin Chronic iron deficiency anemia Hemoglobin 7.7 on admission and dropping down to 6.7 Denies priscila bleeding, black or tarry stools s/p 2 units prbs hgb today 9.7 CV summary 03/16/2025: Hemoglobin today 9.7. Patient converted to normal sinus rhythm last night. Can stop digoxin. Continue amiodarone 400 mg p.o. twice daily and Xarelto. Patient is CV stable for discharge home. Please have patient follow-up in cardiology clinic in 1 week for reevaluation. Cardiac meds for discharge: Plavix 75 mg p.o. daily Atorvastatin 40 mg p.o. daily Amiodarone 400 mg p.o. twice daily Xarelto 15 mg p.o. daily
--- NOTE | 2025-03-16 10:56 | P.DS_ITS ---
General Admission date:: 03/14/25 Discharge date: 03/16/25 HPI HPI HPI: Ms. Skelotn is an 84-year-old with history of A-fib/a flutter, pacemaker dependent, dementia, HFpEF, CAD, diabetes who presented to the ER because of worsening episodes over the past week of dizziness and weakness when she stands. States she just has not been feeling well. Having a hard time elaborating. Family at bedside helps supplement history. They state that over the past week each time she gets up she has been feeling more fatigued and unsteady. She has not been eating very well. She has been taking her medications as family observes her take her pills and administers her insulin. Came to the ER for further evaluation due to her progressing symptoms. On arrival she was found to be in A-fib RVR. Initially started on metoprolol and transition to amiodarone after consultation with cardiology. Patient stable on room air. Denies chest pain, shortness of breath, nausea or vomiting. Family does report that she has a wheeze when she gets up and this has been observed by nursing. Denies any chest pain after arriving to the unit. Heart rate remains in the low 100s. In a flutter/A-fib on telemetry. Stable on room air. Afebrile. States she is not currently taking a diuretic. Family at bedside. They help to supplement history and presentation. Hospital Course Hospital Course Hospital Course: Patient is a 84-year-old female with a history significant for LAD s/p stent, HFpEF, symptomatic bradycardia (resolved after cardiac stent), TIA with no residual weakness, hypertension, insulin-dependent diabetes who presented with dizziness and recurring episodes of weakness over the past week. She had similar episodes back in the fall that led to pacemaker placement for tachybradycardia syndrome. Found to be in a flutter on arrival to the ER. Concern for CHF exacerbation with elevated BNP of 7800. Discussed case with ER physician, request admission for treatment with amiodarone drip after consultation with cardiology. I decided to admit to the stepdown unit for further management. Stable on room air. Necessitating inpatient care. Did well with initiation of amiodarone. Heart rate improved. Responded to diuresis. Therapy evaluated, stable discharge home. Cardiology assisted with care. Problems addressed as follows: # dizziness #Tachybradycardia syndrome #A-flutter # Pacemaker in situ ? Increased episodes of dizziness and weakness when tries to get up over the past week. BNP 7800 on presentation. Troponin 0.03. Dig level 0.5. Per my review of EKG patient is in a flutter. Patient was initiated on amiodarone bolus and drip after discussion with cardiology. Responded well with ability to transition to oral amiodarone 400 mg twice daily. Echo obtained showing low normal EF of 50%. Had moderate hypokinesis of the septal and anteroseptal and inferoseptal LV jacobson that is stable compared to previous echoes. Cardiology assisted with care. Discussed case during admission. Will continue Plavix 75 mg daily, Lipitor 40 mg daily, amiodarone 400 mg twice daily and Xarelto 15 mg daily. Discontinue digoxin. No indication for Diuretics at this time on discharge as patient appears euvolemic Acute on chronic anemia -Hemoglobin dropped to 6.7 from 7.7 on admission. Chronic hemoglobin around 9 prior to admission. Transfused 2 units during admission. Responded well to transfusion with hemoglobin 9.7 on morning of discharge. No bloody stools or black stools. No active signs of bleeding. Also administered 200 mg of Venofer for iron deficiency. Would benefit from repeat CBC, CMP, magnesium in 1 week to monitor stability of hemoglobin and kidney function. Okay to resume Xarelto and Plavix after discussion with cardiology. #Hypertension ? Blood pressure intermittently soft. Holding losartan. Will not continue at this time. Reevaluate need to resume as an outpatient # CAD s/p LAD stent 04/2024 #History of TIA ? Held Xarelto during admission. Resume at discharge. Continue Plavix 75 mg daily. Continue Lipitor 40mg hs. #Type 2 diabetes ? A1c is increased to 8.1 from 6.8 last April. Glucose elevated at 404 on presentation. Adjusted basal insulin to 30 units. Continue linagliptin 5 mg daily. Okay to resume glipizide at discharge, consider discussion with PCP about risks and benefits of continuing glipizide versus adjustments to insulin due to risk for hypoglycemia Total time spent on discharge 32 minutes in counseling, documentation, chart review, and direct care with patient. Exam Data for Last 24 hours Vital signs and Labs for Last 24 Hours: Temp Pulse Resp BP Pulse Ox O2 Del Method O2 Flow Rate 98.0 F 60 18 126/57 L 99 Room Air 98 03/16/25 08:00 03/16/25 08:43 03/16/25 08:00 03/16/25 08:00 03/16/25 08:00 03/16/25 09:00 03/15/25 05:00 Laboratory Results - last 24 hr 03/15/25 07:28: Iron 27 L, TIBC 251 L, Iron Saturation 10.33175 L, Ferritin 8.27 L, Blood Type A Negative, Antibody Screen Negative, Crossmatch (AHG) See Detail 03/15/25 11:03: POC Glucose 287 H 03/15/25 18:26: Hgb 10.7 L D, Hct 35.0 L 03/15/25 19:51: POC Glucose 423 H* 03/16/25 05:25: POC Glucose 160 H 03/16/25 05:26: WBC 7.0, RBC 4.06 L D, Hgb 9.7 L, Hct 31.4 L, MCV 77.3 L, MCH 23.6 L, MCHC 30.6 L, RDW 19.3 H, Plt Count 219, MPV 11.4 H, Neut % (Auto) 69.2, Lymph % (Auto) 21.1, [place] % (Auto) 6.7, Eos % (Auto) 1.0, Baso % (Auto) 0.6, Neut # (Auto) 4.9, Lymph # (Auto) 1.5, [place] # (Auto) 0.5, Eos # (Auto) 0.1, Baso # (Auto) 0.0, Sodium 136, Potassium 3.4 L, Chloride 103, Carbon Dioxide 26, Anion Gap 10.4, BUN 15, Creatinine 1.10 H, Estimated Creat Clear 34, Estimated GFR 47 L, Est GFR ( Amer) 57 L, Glucose 161 H, Calcium 8.4, Magnesium 1.9, Total Bilirubin 0.7, AST 34, ALT 22 D, Alkaline Phosphatase 94, Total Protein 6.3, Albumin 3.5, Globulin 2.8, Albumin/Globulin Ratio 1.3, Folate 8.13 I & O for Last 24 hours: Intake & Output 03/13/25 03/14/25 03/15/25 03/16/25 23:59 23:59 23:59 23:59 Intake Total 452.756 / 463.030 3941.053 / 1187.053 120 / 120 Output Total 600 / 600 1200 / 1200 0 / 0 Balance -147.244 / -27.244 -12.947 / -12.947 120 / 120 Weight 56.699 kg 57.198 kg Constitutional Constitutional: no acute distress, average body habitus, chronically ill appearing and cooperative *Routine HEENT Exam Head: Present normocephalic Eye: Present EOMI and PERRL ENT: Present mucous membranes moist *Routine Neck Exam Neck: Present supple; Absent lymphadenopathy Routine Chest/Breast/Axilla Exam Chest wall: Present pacemaker *Routine Respiratory Exam Respiratory: Present CTA bilaterally; Absent rhonchi, wheezes or crackles *Routine Cardiovascular Exam Cardiovascular: Present RRR and irregular rhythm *Routine Abdominal Exam Abdominal: Present soft and normoactive bowel sounds; Absent tenderness *Routine Rectal Exam Patient deferred: visual exam *Routine Exam Patient deferred: external exam *Routine Extremities Exam Extremities: Absent cyanosis, clubbing or edema *Routine Skin Exam Skin: Present warm; Absent rash *Routine Neurological Exam Neurological: Present alert and moving all extremities; Absent altered mental status Comments: Oriented to self and place. At baseline mentation Results Data Completed and Pending Labs on day of discharge: Labs from last 24 hours 03/16/25 03/16/25 03/15/25 05:26 05:25 19:51 WBC 7.0 RBC 4.06 L D Hgb 9.7 L Hct 31.4 L MCV 77.3 L MCH 23.6 L MCHC 30.6 L RDW 19.3 H Plt Count 219 MPV 11.4 H Neut % (Auto) 69.2 Lymph % (Auto) 21.1 [place] % (Auto) 6.7 Eos % (Auto) 1.0 Baso % (Auto) 0.6 Neut # (Auto) 4.9 Lymph # (Auto) 1.5 [place] # (Auto) 0.5 Eos # (Auto) 0.1 Baso # (Auto) 0.0 Sodium 136 Potassium 3.4 L Chloride 103 Carbon Dioxide 26 Anion Gap 10.4 BUN 15 Creatinine 1.10 H Estimated Creat Clear 34 Estimated GFR 47 L Est GFR ( Amer) 57 L Glucose 161 H POC Glucose 160 H 423 H* Calcium 8.4 Magnesium 1.9 Iron TIBC Iron Saturation Ferritin Total Bilirubin 0.7 AST 34 ALT 22 D Alkaline Phosphatase 94 Total Protein 6.3 Albumin 3.5 Globulin 2.8 Albumin/Globulin Ratio 1.3 Folate 8.13 Blood Type Antibody Screen Crossmatch ([facility]) 03/15/25 03/15/25 03/15/25 18:26 11:03 07:28 WBC RBC Hgb 10.7 L D Hct 35.0 L MCV MCH MCHC RDW Plt Count MPV Neut % (Auto) Lymph % (Auto) [place] % (Auto) Eos % (Auto) Baso % (Auto) Neut # (Auto) Lymph # (Auto) [place] # (Auto) Eos # (Auto) Baso # (Auto) Sodium Potassium Chloride Carbon Dioxide Anion Gap BUN Creatinine Estimated Creat Clear Estimated GFR Est GFR ( Amer) Glucose POC Glucose 287 H Calcium Magnesium Iron 27 L TIBC 251 L Iron Saturation 10.73849 L Ferritin 8.27 L Total Bilirubin AST ALT Alkaline Phosphatase Total Protein Albumin Globulin Albumin/Globulin Ratio Folate Blood Type A Negative Antibody Screen Negative Crossmatch ([facility]) See Detail DS: Diagnosis Discharge Diagnosis (1) Atrial flutter: Status: Acute Code(s): I48.92 - Unspecified atrial flutter Qualifiers: Atrial flutter type: unspecified Qualified Code(s): I48.92 - Unspecified atrial flutter (2) Pre-syncope: Status: Acute Code(s): R55 - Syncope and collapse (3) Hypotension: Status: Acute Code(s): I95.9 - Hypotension, unspecified Qualifiers: Hypotension type: hypotension due to drug Qualified Code(s): I95.2 - Hypotension due to drugs (4) Hypertension: Status: Acute Code(s): I10 - Essential (primary) hypertension Qualifiers: Hypertension type: primary hypertension Qualified Code(s): I10 - Essential (primary) hypertension (5) Dizziness: Status: Acute Code(s): R42 - Dizziness and giddiness (6) Asystole: Status: Resolved Code(s): I46.9 - Cardiac arrest, cause unspecified (7) Symptomatic bradycardia: Status: Acute Code(s): R00.1 - Bradycardia, unspecified (8) Dementia: Status: Acute Code(s): F03.90 - Unspecified dementia, unspecified severity, without behavioral disturbance, psychotic disturbance, mood disturbance, and anxiety Qualifiers: Dementia behavioral or psychological symptom: unspecified whether behavioral, psychotic, or mood disturbance or anxiety Dementia severity: unspecified severity Dementia type: unspecified type Qualified Code(s): F03.90 - Unspecified dementia, unspecified severity, without behavioral disturbance, psychotic disturbance, mood disturbance, and anxiety Meds Home Medications and Allergies Home Medications ?Medication ?Instructions ?Recorded ?Confirmed ?Type clopidogrel 75 mg tablet 75 mg PO DAILY 04/21/2102/17 History linagliptin 5 mg tablet (Tradjenta) 5 mg PO DAILY 07/2003/14/25 History amitriptyline 50 mg tablet 50 mg PO HS 05/03/24 History rivaroxaban 15 mg tablet (Xarelto) 15 mg PO QPMWITHMEA L #30 tabs 06/10/24 03/14/25 Rx blood sugar diagnostic ([employer] #10 ea 10/01/2403/14 History Verio test strips) blood-glucose meter ([employer] #1 ea 10/01/24 03/14/25 History Verio Flex Meter) glipizide 5 mg tablet, extended 5 mg PO DAILY 10/01/24 03/14/25 History release 24 hr lancets 33 gauge (OneTouch Delica #100 ea 10/01/24 History Plus Lancet) pen needle, diabetic 32 gauge x #1,200 ea 10/01/24 History 5/32 (BD Ultra-Fine Nai Pen Needle) atorvastatin 40 mg tablet 40 mg PO HS 03/14/25 5 History amiodarone 200 mg tablet 400 mg (2 x 200 mg) PO BID 3 0 days 03/16/25 Rx #120 tabs insulin glargine 100 unit/mL (3 30 unit (0.3 mL) SQ HS 30 days #0 03/16/25 03/14/25 Rx mL) subcutaneous pen (Lantus mL Solostar U-100 Insulin) New Prescriptions to Start Prescriptions: amiodarone Tray Ovalle Allergies Allergy/AdvReac Type Severity Reaction Status Date / Time Sulfa (Sulfonamide Allergy Unknown Unknown Verified 02/16/25 11:29 Antibiotics) allergy reaction Penicillins Allergy Other Verified 02/16/25 11:29 Discharge Plan Disposition Patient Disposition: Home, Self-Care Condition: Fair Discharge Order Discharge Orders: Discharge Order (Routine); Ordered 03/16/25 Ordered By: Tray Ovalle Follow up Plan Follow up with: Aria Vera APRN [Nurse Practitioner, Cardiology] - 03/23/25 10:45 am Cate Frederick [Primary Care Provider, Medical] - 03/23/25 1:30 pm Prescriptions/Medication Reconciliation: New amiodarone 200 mg Tablet 400 mg PO BID 30 Days Qty: 120 0RF Continued Tradjenta 5 mg tablet 5 mg PO DAILY Xarelto 15 mg tablet 15 mg PO QPMWITHMEAL Qty: 30 5RF (DME) blood-glucose meter [OneTouch Verio Flex meter] Misc See Rx Instructions .ROUTE .MEDSUPPLY Qty: 1 Patient Comments: test blood glucose twice a day Rx Instructions: As directed glipizide 5 mg tablet extended release 24hr 5 mg PO DAILY Patient Comments: TAKE ONE TABLET BY MOUTH EVERY MORNING FOR DIABETES (DME) OneTouch Verio test strips Strip See Rx Instructions .ROUTE .MEDSUPPLY Qty: 10 Patient Comments: Use as directed to check glucose twice daily Rx Instructions: As directed (DME) pen needle, diabetic [BD Ultra-Fine Nai Pen Needle] 32 gauge x 5/32 needle See Rx Instructions .ROUTE .MEDSUPPLY Qty: 1200 Patient Comments: Use as directed with insulin Rx Instructions: As directed (DME) lancets [OneTouch Delica Plus Lancet] 33 gauge misc See Rx Instructions .ROUTE .MEDSUPPLY Qty: 100 Patient Comments: Use as directed to test blood glucose twice daily Rx Instructions: As directed clopidogrel 75 MG tablet 75 mg PO DAILY amitriptyline 50 mg tablet 50 mg PO HS atorvastatin 40 mg tablet 40 mg PO HS Patient Comments: TAKE 1 TABLET BY MOUTH AT BEDTIME NIGHTLY Changed insulin glargine [Lantus Solostar U-100 Insulin] 100 unit/mL (3 mL) insulin pen 30 unit SQ HS 30 Days Qty: 0 0RF Patient Comments: Inject 20 units every day by subcutaneous route at bedtime, for diabetes. Discontinued digoxin 125 mcg (0.125 mg) tablet 125 mcg PO DAILY Qty: 30 6RF losartan 25 mg tablet 25 mg PO DAILY Qty: 30 2RF Problem Reconciliation Problems Reviewed?: Yes Patient Discharge Instructions ACTIVITY: Continue current activity DIET: continue same diet Patient Instructions: Atrial Fibrillation Print Language: Serbian Providers Primary Care Provider: Cate Frederick Admit Provider: Tray Ovalle Attending Provider: Tray Ovalle
[2025-03-16 12:06] LABS: POC Glucose,Bedside 287 (70-110)
--- NOTE | 2025-03-17 10:33 | SW/DCPLANNER ---
Spoke with patient's daughter on the phone. Patient's daughter stated that she is doing well. Patient's daughter stated that she is aware of her upcoming appointments. Patient's daughter stated that she was able to get her mom's new medicine picked up at [facility]. Patient's daughter stated that she has no concerns or questions at this time. Dacia Zapata
== END 2025-03-16 12:51 | disposition home or self-care (01) | DRG 309 ==
LOC: ER 14:15 → ICU 15:07 → 2ND 03-15 15:40
PROVIDERS: Physician Assistant; Student in an Organized Health Care Education/Training Program; Admitting Provider Internal Medicine Adolescent Medicine; Emergency Provider Emergency Medicine; PCP Nurse Practitioner Family; Visit Provider Internal Medicine Adolescent Medicine
DX: I48.92 Unspecified atrial flutter (principal); I50.32 Chronic diastolic (congestive) heart failure; I48.0 Paroxysmal atrial fibrillation; I49.5 Sick sinus syndrome; I25.10 Atherosclerotic heart disease of native coronary artery without angina pectoris; I11.0 Hypertensive heart disease with heart failure; E11.9 Type 2 diabetes mellitus without complications; F03.90 Unspecified dementia, unspecified severity, without behavioral disturbance, psychotic disturbance, mood disturbance, and anxiety; D50.9 Iron deficiency anemia, unspecified; I95.2 Hypotension due to drugs; F17.210 Nicotine dependence, cigarettes, uncomplicated; Z95.0 Presence of cardiac pacemaker; Z95.5 Presence of coronary angioplasty implant and graft; Z86.73 Personal history of transient ischemic attack (TIA), and cerebral infarction without residual deficits; Z79.01 Long term (current) use of anticoagulants; Z79.02 Long term (current) use of antithrombotics/antiplatelets; Z79.4 Long term (current) use of insulin; Z79.84 Long term (current) use of oral hypoglycemic drugs; Z79.899 Other long term (current) drug therapy; Z88.0 Allergy status to penicillin; Z88.2 Allergy status to sulfonamides; Z82.49 Family history of ischemic heart disease and other diseases of the circulatory system
CPT/HCPCS: 36415; 36430; 71045; 80053; 80162; 82607; 82728; 82746; 82962; 82985; 83036; 83540; 83550; 83735; 83880; 84436; 84443; 84479; 84484; 85014; 85018; 85025; 86850; 93005; 93306; 97163; 97166; J0282; J1756; J1938; J2470; J7060; P9016

== ENCOUNTER 2025-04-07 11:18 | Outpatient (CLI) | payer MEDICARE, SELFPAY ==
--- OUTSIDE RECORDS SUMMARY | 2025-02-11 10:20 | XMS_ITS | Encounter Summary ---
Author Organization [facility] Address [address] [place] [place] [address] Care Team Providers Care Lawn Sprinkler Installer Name Role Phone Cate Frederick APRN Primary Care Provider [phone] Reason for Referral * Other Medical (Routine) - Pending Review Specialty Diagnoses / Procedures Referred By Ольга chavez Referred To Contact Urology Diagnoses Bladder pain Chronic ulcerating interstitial cystitis Procedures Cysto- Urology Mary Cross APRN [address] [address] Phone: tel: fax: Referral ID Status Reason Start Date Expiration Date V isits Requested Visits Authorized [id number] Pending Review 02/11/2025 08/13/2026 1 1 Reason for Visit * Reason Comments Urinary Retention Follow-up Encounter Details Date Type Department Care Team (Late st Contact Info) Description 02/11/2025 10:20 AM EDT Office Visit [facility] [address] [place] [address] Mary Cross APRN [address] [facility] [address] [place] [address] Recurrent UTI (Primary Dx); Bladder [...] Cross APRN - 02/11/2025 10:20 AM EDT [facility] Urology Clinic Note 02/11/25 CC: [...] Ketones Negative Negative mg/dL POCT Urine Specific [place] >=1.030 1.005 - 1.030 POCT Urine Blood [...] Ketones Negative Negative mg/dL POCT Urine Specific [place] >=1.030 1.005 - 1.030 POCT Urine Blood [...] Description 04/21/2025 2:20 PM EDT Office Visit [facility] [address] [place] [address] Marylou Laughlin MD [address] [place] [address] Scheduled Orders Name Type Priority [...] to 3 /HPF 02/11/2025 6:53 PM EDT [facility] WBC, Urine >50(A) 0 to 5 /HPF 02/11/2025 6:53 PM EDT [facility] Squamous Epithelial Cells Unable to estimate due to obscuring WBC's (UNEWBC) 0 to 5 /HPF 02/11/2025 6:53 PM EDT [facility] Hyaline Casts Unable to estimate due to obscuring WBC's (UNEWBC) 0 to 5 /LPF 02/11/2025 6:53 PM EDT [facility] Bacteria, Urine Present Negative 02/11/2025 6:53 PM EDT [facility] Yeast (Budding and/or Pseudohyphae) Present(A) Absent 02/11/2025 6:53 PM EDT [facility] Urine Urine specimen from urinary conduit / Unknown Non-blood Collection / Unknown 02/11/2025 12:07 PM EDT 02/11/2025 4:51 PM EDT Narrative [facility] - 02/11/2025 6:53 PM EDT Performed by manual method Mary [employer] Tay GUR[facility]OLAN LAB URINE ORDERABLES Final Result Performing Organization Address [facility] [place] [address] * (ABNORMAL) Fungal Culture, Routine (02/11/2025 12:07 PM EDT) Culture Confluent Growth Radha glabrata(A) 02/18/2025 1:12 PM EDT [facility] Comment: This isolate has been identified using the FDA Approved [employer] [place] System Edited result: Previously reported as Yeast on 02/15/2025 at 1037 EDT. Urine Urine specimen / Unknown Non-blood Collection / Unknown 02/11/2025 12:07 PM EDT 02/11/2025 4:51 PM EDT us Mary Cross APRN LAB MICROBIOLOGY - GENERAL ORDERABLES Final Result Performing Organization Address [facility] [place] [address] * (ABNORMAL) Urine Culture (02/11/2025 12:07 PM EDT) Culture >=100,000 CFU/mL Lactobacillus species(A) 02/15/2025 9:56 AM EDT [facility] Comment:This is a corrected result. Previous organism was Alpha hemolytic streptococcus vs gram positive meaghan on 02/12/2025 at 1601 EDT. Culture >=100,000 CFU/mL Radha glabrata(A) 02/15/2025 9:56 AM EDT [facility] Comment: This isolate has been identified using the FDA Approved [employer] [place] System Contact Microbiology (76303) within 24 hours if susceptibility required. The [...] MICROBIOLOGY - GENERAL ORDERABLES Final Result [facility] [address] [place] [address] * POC US Bladder Volume (02/11/2025 10:35 AM EDT) Urine, Volume 1 mL IMAGING Anatomical Region Laterality Modality Other us Mary Cross APRN IMG POINT OF CARE ULTRASOU [place] Final Result * (ABNORMAL) POCT URINALYSIS DIPSTICK (02/11/2025 10:24 AM EDT) POCT Urine Color Dark Yellow 02/11/2025 10:26 AM EDT [facility] POCT Urine Clarity Turbid 02/11/2025 10:26 AM EDT [facility] POCT Urine Glucose 250(A) Negative mg/dL 02/11/2025 10:26 AM EDT [facility] POCT Urine Bilirubin Negative Negative mg/dL 02/11/2025 10:26 AM EDT [facility] POCT Urine Ketones Negative Negative mg/dL 02/11/2025 10:26 AM EDT [facility] POCT Urine Specific [place] >=1.030 1.005 - 1.030 02/11/2025 10:26 AM EDT [facility] POCT Urine Blood Large(A) Negative 02/11/2025 10:26 AM EDT [facility] POCT pH, Urine 5.5 5.0 - 8.0 02/11/2025 10:26 AM EDT [facility] POCT Protein, Urine >=300(A) Negative mg/dL 02/11/2025 10:26 AM EDT [facility] POCT Urobilinogen, Urine 0.2 0.2, 1.0 EU/dL 02/11/2025 10:26 AM EDT [facility] POCT Nitrite, Urine Negative Negative 02/11/2025 10:26 AM EDT [facility] POCT Urine Leukocyte Esterase Trace(A) Negative 02/11/2025 10:26 AM EDT [facility] Urine 02/11/2025 10:2 4 AM EDT 02/11/2025 10:26 AM EDT us Mary Cross APRN LAB POINT OF CARE TEST DOCKED DEVICE UNSOLICITED RESULTS Final Result [facility] [address] [place], [place] documented in this encounter Visit Diagnoses [...] documented as of this encounter Care Teams Lawn Sprinkler Installer Relationship Specialty Start Date End Date Cate Frederick APRN [address] [place] [address] PCP - General 02/09/22 documented as of this encounter
--- OUTSIDE RECORDS SUMMARY | 2025-02-17 09:40 | XMS_ITS | Encounter Summary ---
Author Organization [facility] Address [address] [place] [place] [address] Care Team Providers Care Stoneworking Belt Sander Name Role Phone Cate Frederick APRN Primary Care Provider Reason for Visit * Reason Comments Cystitis Encounter Details Date Type Department Care Team (Latest Contact Info) Description 02/17/2025 9:40 AM EDT Procedure Visit [place] [facility] U[facility] [address], [address] [place] [address] Mary Cross APRN [address] [place] [address] Candiduria (Primary Dx); Megan glabrata [...] Notes * Progress Notes - Mary Cross, BELT CONVEYOR DRIER - 02/17/2025 9:40 AM EDT [facility] Urology Clinic Note 02/17/25 CC: No chief [...] Trace (A) Negative mg/dL POCT Urine Specific [place] 1.025 1.005 - 1.030 POCT Urine Blood [...] Ketones Negative Negative mg/dL POCT Urine Specific [place] >=1.030 1.005 - 1.030 POCT Urine Blood [...] Trace (A) Negative mg/dL POCT Urine Specific [place] 1.025 1.005 - 1.030 POCT Urine Blood [...] Description 04/21/2025 2:20 PM EDT Office Visit [facility] Urology [address], [address] [place] [address] Marylou Laughlin MD [address] [place] [address] documented as of this encounter Procedures Procedure Name Priority Date/Time Associated Diagnosis Comments POCT URINALYSIS DIPSTICK Routine 02/17/2025 9:56 AM EDT documented in this encounter Results * (ABNORMAL) POCT URINALYSIS DIPSTICK (02/17/2025 9:56 AM EDT) POCT Urine Color Yellow 02/17/2025 9:58 AM EDT [facility] POCT Urine Clarity Clear 02/17/2025 9:58 AM EDT [facility] POCT Urine Glucose >=1000(A) Negative mg/dL 02/17/2025 9:58 AM EDT [facility] POCT Urine Bilirubin Negative Negative mg/dL 02/17/2025 9:58 AM EDT [facility] POCT Urine Ketones Trace(A) Negative mg/dL 02/17/2025 9:58 AM EDT [facility] POCT Urine Specific [place] 1.025 1.005 - 1.030 02/17/2025 9:58 AM EDT [facility] POCT Urine Blood Large(A) Negative 02/17/2025 9:58 AM EDT [facility] POCT pH, Urine 5.5 5.0 - 8.0 02/17/2025 9:58 AM EDT [facility] POCT Protein, Urine >=300(A) Negative mg/dL 02/17/2025 9:58 AM EDT [facility] POCT Urobilinogen, Urine 0.2 0.2, 1.0 EU/dL 02/17/2025 9:58 AM EDT [facility] POCT Nitrite, Urine Negative Negative 02/17/2025 9:58 AM EDT [facility] POCT Urine Leukocyte Esterase Small(A) Negative 02/17/2025 9:58 AM EDT [facility] Urine 02/17/2025 9:56 AM EDT 02/17/2025 9:58 AM EDT us Mary Cross APRN LAB POINT OF CARE TEST DOCKED DEVICE UNSOLICITED RESULTS Final Result [facility] [address], [place] documented in this encounter Visit Diagnoses [...] documented as of this encounter Care Teams Stoneworking Belt Sander Relationship Specialty Start Date End Date Cate Frederick APRN [address] [place] [address] PCP - General 02/09/22 documented as of this encounter
--- OUTSIDE RECORDS SUMMARY | 2025-02-18 11:00 | XMS_ITS | Encounter Summary ---
Author Organization [facility] Address [address] [place] [address] Care Team Providers Care Field Contractor Name Role Phone Cate Frederick APRN Primary Care Provider [phone] Reason for Visit * Reason Comments Bladder Instillation Encounter Details Date Type Department Care Team (Latest Contact Info) Description 02/18/2025 11:00 AM EDT [facility] [address] [place] [address] Chelsea Cole LPN [facility] Megan glabrata infection (Primary [...] Cross APRN - 02/18/2025 11:00 AM EDT [facility] Clinic Note 02/18/25 CC: No chief [...] Trace (A) Negative mg/dL POCT Urine Specific [place] 1.025 1.005 - 1.030 POCT Urine Blood [...] Ketones Negative Negative mg/dL POCT Urine Specific [place] >=1.030 1.005 - 1.030 POCT Urine Blood [...] Trace (A) Negative mg/dL POCT Urine Specific [place] 1.025 1.005 - 1.030 POCT Urine Blood [...] Description 04/21/2025 2:20 PM EDT Office Visit [facility] Urology [address], [address] [place] [address] Marylou Laughlin MD [address] [place] [address] documented as of this encounter Results * (ABNORMAL) Urinalysis, Microscopic (02/23/2025 1:48 PM EDT) RBC, Urine 4 - 10(A) 0 to 3 /HPF LAB URINALYSIS - AUTOMATED METHOD 02/23/2025 6:51 PM EDT [facility] WBC, Urine >50(A) 0 to 5 /HPF LAB URINALYSIS - AUTOMATED METHOD 02/23/2025 6:51 PM EDT [facility] Squamous Epithelial Cells 0 - 2 0 to 5 /HPF LAB URINALYSIS - AUTOMATED METHOD 02/23/2025 6:51 PM EDT [facility] Hyaline Casts 0 - 2 0 to 5 /LPF LAB URINALYSIS - AUTOMATED METHOD 02/23/2025 6:51 PM EDT [facility] Bacteria, Urine Negative Negative LAB URINALYSIS - AUTOMATED METHOD 02/23/2025 6:51 PM EDT [facility] Urine Urine specimen obtained by clean catch procedure / Unknown Non-blood Collection / Unknown 02/23/2025 1:48 PM EDT 02/23/2025 4:41 PM EDT us Mary Cross APRN LAB URINE ORDERABLES Final Result Performing Organization Address City/[facility] [address] [facility]/ZIP Co de Phone Number [facility] [address] [place] [address] * (ABNORMAL) Fungal Culture, Routine (02/23/2025 1:48 PM EDT) Culture Heavy Growth Megan glabrata(A) 03/03/2025 9:36 AM EDT [facility] Comment: This isolate has been identified using the FDA Approved [employer] [place] System Edited result: Previously reported as Yeast on 02/26/2025 at 0938 EDT. Urine Urine specimen obtained by clean catch procedure / Unknown Non-blood Collection / Unknown 02/23/2025 1:48 PM EDT 02/23/2025 4:41 PM EDT us Mary Cross APRN LAB MICROBIOLOGY - GENERAL ORDERABLES Final Result Performing Organization Address [facility] [address]/[facility] Co de Phone Number [facility] [address] [place] [address] * Urine Culture (02/23/2025 1:48 PM EDT) Culture No growth at day 1 02/25/2025 11:16 AM EDT [facility] Urine Urine specimen obtained by clean catch procedure / Unknown Non-blood Collection / Unknown 02/23/2025 1:48 PM EDT 02/23/2025 4:41 PM EDT us Mary Cross APRN LAB MICROBIOLOGY - GENERAL ORDERABLES Final Result Performing Organization Address City/[facility] [address]/ZIP Co de Phone Number [facility] [address] [place] [address] documented in this encounter Visit Diagnoses Diagnosis [...] documented as of this encounter Care Teams Field Contractor Relationship Specialty Start Date End Date Cate Frederick APRN [address] [place] [address] PCP - General 02/09/22 documented as of this encounter
--- OUTSIDE RECORDS SUMMARY | 2025-02-22 13:15 | XMS_ITS | Encounter Summary ---
Author Organization [facility] Address [address] [place] [address] Care Team Providers Care Wet Pour Supervisor Name Role Phone Cate Frederick APRN Primary Care Provider [phone] Reason for Visit * Reason Comments Bladder Instillation Encounter Details Date Type Department Care Team (Latest Contact Info) Description 02/22/2025 1:15 PM EDT Clinical Support [facility] Urology [address] [place] [phone] [place] Cole LPN [facility] Radha glabrata infection (Primary Dx) [...] Description 04/21/2025 2:20 PM EDT Office Visit [facility] Urology [address], [address] [place] [address] Marylou Laughlin MD [address] [place] [address] documented as of this encounter Visit Diagnoses [...] documented as of this encounter Care Teams Wet Pour Supervisor Relationship Specialty Start Date End Date Cate Frederick, MIGUEL [address] [place] [address] PCP - General 02/09/22 documented as of this encounter
--- OUTSIDE RECORDS SUMMARY | 2025-02-23 13:15 | XMS_ITS | Encounter Summary ---
Author Organization [facility] Address [address] [place] [address] Care Team Providers Care Wholesale Parts Salesperson Name Role Phone Cate Frederick APRN Primary Care Provider [phone] Reason for Visit * Reason Comments Bladder Instillation Encounter Details Date Type Department Care Team (Latest Contact Info) Description 02/23/2025 1:15 PM EDT Clinical Support [facility] [address], [address] [place] [phone] Chelsea Cole LPN [facility] Radha glabrata infection [...] [facility] [address], [address] [place] [address] Marylou Laughlin MD [address] [place] [address] documented as of this encounter Procedures Procedure [...] at day 1 02/25/2025 11:16 AM EDT [facility] Urine Urine specimen obtained by clean catch procedure / Unknown Non-blood Collection / Unknown 02/23/2025 1:48 PM EDT 02/23/2025 4:41 PM EDT us Mary Cross APRN LAB MICROBIOLOGY - GENERAL ORDERABLES Final Result Performing Organization Address [facility] Co de Phone Number [facility] [address] [place] [address] * (ABNORMAL) Fungal Culture, Routine (02/23/2025 1:48 PM EDT) Culture Heavy Growth Radha glabrata(A) 03/03/2025 9:36 AM EDT [facility] Comment: This isolate has been identified using the FDA Approved [employer] [place] System Edited result: Previously reported as Yeast on 02/26/2025 at 0938 EDT. Urine Urine specimen obtained by clean catch procedure / Unknown Non-blood Collection / Unknown 02/23/2025 1:48 PM EDT 02/23/2025 4:41 PM EDT us Mary Cross APRN LAB MICROBIOLOGY - GENERAL ORDERABLES Final Result Performing Organization Address City/[facility]/ZIP Co de Phone Number [facility] [address] [place] [address] * (ABNORMAL) Urinalysis, Microscopic (02/23/2025 1:48 PM EDT) RBC, Urine 4 - 10(A) 0 to 3 /HPF LAB URINALYSIS - AUTOMATED METHOD 02/23/2025 6:51 PM EDT [facility] WBC, Urine >50(A) 0 to 5 /HPF LAB URINALYSIS - AUTOMATED METHOD 02/23/2025 6:51 PM EDT [facility] Squamous Epithelial Cells 0 - 2 0 to 5 /HPF LAB URINALYSIS - AUTOMATED METHOD 02/23/2025 6:51 PM EDT [facility] Hyaline Casts 0 - 2 0 to 5 /LPF LAB URINALYSIS - AUTOMATED METHOD 02/23/2025 6:51 PM EDT [facility] Bacteria, Urine Negative Negative LAB URINALYSIS - AUTOMATED METHOD 02/23/2025 6:51 PM EDT [facility] Urine Urine specimen obtained by clean catch procedure / Unknown Non-blood Collection / Unknown 02/23/2025 1:48 PM EDT 02/23/2025 4:41 PM EDT Mary Cross APRN LAB URINE ORDERABLES Final Result Performing Organization Address City/State/[facility] Co de Phone Number [facility] [address] [place] [address] documented in this encounter Visit Diagnoses Diagnosis [...] documented as of this encounter Care Teams Wholesale Parts Salesperson Relationship Specialty Start Date End Date Cate Frederick APRN [address] [place] [address] PCP - General 02/09/22 documented as of this encounter
--- OUTSIDE RECORDS SUMMARY | 2025-02-24 13:30 | XMS_ITS | Encounter Summary ---
Author Organization [facility] Address [address] [place] [address] Care Team Providers Care Hot Plate Plywood Press Offbearer Name Role Phone Cate Frederick APRN Primary Care Provider Reason for Visit * Reason Comments Bladder Instillation Encounter Details Date Type Department Care Team (Latest Contact Info) Description 02/24/2025 1:30 PM EDT Clinical Support [facility]rology [address], [address] [place] [phone] Germaine Francisco LPN [facility] Recurrent UTI (Primary Dx) Social [...] clinic with any questions or concerns at [phone] documented in this encounter Plan of Treatment Upcoming Encounters Date Type Department Care Team (Late st Contact Info) Description 04/21/2025 2:20 PM EDT Office Visit [facility] Urology [address], [address] [place] [address] Marylou Laughlin MD [address] [place] [address] documented as of this encounter [...] documented as of this encounter Care Teams Hot Plate Plywood Press Offbearer Relationship Specialty Start Date End Date Cate Frederick APRN [address] [place] [address] PCP - General 02/09/22 documented as of this encounter
--- OUTSIDE RECORDS SUMMARY | 2025-02-25 13:15 | XMS_ITS | Encounter Summary ---
Author Organization [facility] Address [address] [place] [address] Care Team Providers Care Records Assistant Name Role Phone Cate Frederick APRN Primary Care Provider Reason for Visit * Reason Comments Bladder Instillation Encounter Details Date Type Department Care Team (Late st Contact Info) Description 02/25/2025 1:15 PM EDT Clinical Support [facility] [address], [address] [place] [address] Marek Bello [facility] Candiduria [...] clinic with any questions or concerns at [phone] documented in this encounter Plan of Treatment Upcoming Encounters Date Type Department Care Team (Late st Contact Info) Description 04/21/2025 2:20 PM EDT Office Visit [facility] [address], [address] [place] [address] Marylou Laughlin MD [address] [place] [address] documented as of this encounter [...] documented as of this encounter Care Teams Records Assistant Relationship Specialty Start Date End Date Cate Frederick APRN [address] [place] [address] PCP - General 02/09/22 documented as of this encounter
--- OUTSIDE RECORDS SUMMARY | 2025-02-26 13:15 | XMS_ITS | Encounter Summary ---
Author Organization [facility] Address [address] [place] [address] Care Team Providers Care Railway Yard Assistant Name Role Phone Cate Frederick APRN Primary Care Provider Reason for Visit * Reason Comments Bladder Instillation Encounter Details Date Type Department Care Team (Latest Contact Info) Description 02/26/2025 1:15 PM EDT Clinical Support [place] [facility] [address], [address] [place] [phone] Chelsea Cole LPN [facility] Candiduria (Primary Dx) Social History [...] Visit [facility] [address], [address] [place] [address] Marylou Laughlin MD [address] [place] [address] documented as of this encounter Visit Diagnoses [...] documented as of this encounter Care Teams Railway Yard Assistant Relationship Specialty Start Date End Date Cate Frederick APRN [address] [place] [address] PCP - General 02/09/22 documented as of this encounter
--- NOTE | 2025-04-07 | CA_ITS ---
APPROVED REPORT Exam: Pharmacologic Technologist: Mackenzie Bello Ht: 5 ft 2 in Wt: 127 lbs BSA: 1.58 m2 HR: 60 bpm BP: 187/70 mmHg Stress Test Details Test: Lexiscan HR Resting HR: 60 bpm Max Heart Rate (APMHR): 136.381091 bpm Max HR Achieved: 60 bpm Target HR (85% APMHR): 115.198332 bpm % of APMHR: 44.12 Recovery HR: 60 bpm BP Resting BP: 187.0/70.0 mmHg Max BP: 187.0/70.0 mmHg Recovery BP: 177.0/62.0 mmHg ECG Resting ECG: Atrial paced Stress ECG Conclusion Symptoms: None Arrhythmias/Ectopy: PVC ST-T Changes: < than 1.[address] segment changes Conclusion: Non-diagnostic ECG - Lexiscan. Electronically signed by : Triny Mao MD 04/08/2025 13:16:33
--- OUTSIDE RECORDS SUMMARY | 2025-04-07 11:25 | XMS_ITS | Encounter Summary ---
Author Organization [facility] Address [address] [place] [address] Care Team Providers Care Semiconductor Assembler Name Role Phone Cate Frederick APRN Primary Care Provider Encounter Details Date Type Department Care Team (Late st Contact Info) Description 03/05/2025 Telephone [facility] [address] [place] [address] Dayana Tavera Social History Tobacco [...] Office Visit [facility] [address] [place] [address] Marylou Laughlin MD [address] [place] [address] documented as of this encounter [...] documented as of this encounter Care Teams Semiconductor Assembler Relationship Specialty Start Date End Date Cate Frederick APRN [address] [place] [address] PCP - General 02/09/22 documented as of this encounter
--- OUTSIDE RECORDS SUMMARY | 2025-04-07 11:25 | XMS_ITS | Encounter Summary ---
Author Organization [facility] Address [address] [place] [address] Care Team Providers Care Hand Packer Name Role Phone Cate Frederick APRN Primary Care Provider Encounter Details Date Type Department Care Team (Late st Contact Info) Description 02/15/2025 Results Follow-Up [place] [facility] [address], [address] [place] [address] Mary [place] APRN [address] [place] [address] Social History Tobacco Use Types [...] Description 04/21/2025 2:20 PM EDT Office Visit [place] [facility] [address], [address] [place] [address] Marylou Laughlin MD [address] [place] [address] documented as of this encounter [...] documented as of this encounter Care Teams Hand Packer Relationship Specialty Start Date End Date Cate Frederick, UNIT MANAGER [address] [place] [address] PCP - General 02/09/22 documented as of this encounter
--- OUTSIDE RECORDS SUMMARY | 2025-04-07 11:25 | XMS_ITS | Encounter Summary ---
Author Organization [facility] Address [address] [place] [address] Care Team Providers Care Environmental Studies Professor Name Role Phone Cate Frederick APRN Primary Care Provider [phone] Reason for Visit * Reason Onset Date Comments HCN - Patient Message 03/11/2025 Missed jennifer l Encounter Details Date Type Department Care Team (Late st Contact Info) Description 03/11/2025 [facility] [address], [address]nd [place] [address] Mary rCoss, GOLF CLUB FACER [address] [place] [address] HCN - Patient Message (Missed [...] optimal time of day to reach caller: [phone] Note: Please do not reply to this [...] Visit [facility] [address], [address] [place] [address] Marylou Laughlin MD [address] [place] [address] documented as of this encounter [...] documented as of this encounter Care Teams Environmental Studies Professor Relationship Specialty Start Date End Date Cate Frederick APRN [address] [place] [address] PCP - General 02/09/22 documented as of this encounter
--- OUTSIDE RECORDS SUMMARY | 2025-04-07 11:25 | XMS_ITS | Encounter Summary ---
Author Organization [facility] Address [address] [place] [address] Care Team Providers Care Scuba Diver Name Role Phone Cate Frederick APRN Primary Care Provider [phone] Reason for Visit * Reason Onset Date Comments HCN - Patient Message 02/02/[address] Encounter Details Date Type Department Care Team (Late st Contact Info) Description 02/02/2025 Telephone [facility] [address], [address] [place] [address] Mary [place] WASH OIL COOLER OPERATOR [address] [place] [address] HCN - Patient Message (Call [...] patient earlier on 02/18/2025 at 11:00 am. [facility]. KJa * Telephone Encounter - Phuong Brooks - 02/02/2025 3:46 PM EDT Void--pt has been scheduled with MR. Does not need rec for IC * Telephone Encounter - Gracia Valadez - 02/02/2025 12:00 PM EDT Patient Phone Message Reason for Call: [facility] (PCP) requesting a return call to discuss recommendations on where pt could be seenfor Interstitial Cystitis Best contact number and optimal time of day to reach caller: [phone] Kaci Note: Please do not reply to [...] Office Visit [facility] [address], [address] [place] [address] Marylou Laughlin MD [address] [place] [address] documented as of this encounter [...] documented as of this encounter Care Teams Scuba Diver Relationship Specialty Start Date End Date Cate Frederick APRN [address] [place] [address] PCP - General 02/09/22 documented as of this encounter
--- OUTSIDE RECORDS SUMMARY | 2025-04-07 11:25 | XMS_ITS | Encounter Summary ---
Author Organization [facility] Address [address] [place] [address] Care Team Providers Care Milieu Manager Name Role Phone Cate Frederick APRN [...] Description 04/21/2025 2:20 PM EDT Office Visit [place] [facility] [address], [address] [place] [address] Marylou Laughlin MD [address] [place] [address] documented as of this encounter [...] documented as of this encounter Care Teams Milieu Manager Relationship Specialty Start Date End Date Cate Frederick, MIGUEL [address] [place] [address] PCP - General 02/09/22 documented as of this encounter
--- OUTSIDE RECORDS SUMMARY | 2025-04-07 11:25 | XMS_ITS | Clinical Summary ---
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 11/12/2022 Dyspnea on [...] history exists Medical Devices Implanted Type Area Food And Nutrition Professor Device Identifier Shelf Expiration Date Model / Serial / Lot Bone Filler Void Cerament 10ml - [id number] Implanted:Qty: 1 on 10/30/2022 by Jg Natarajan Jr., MD at [facility] Implant Right: Hand BONE SUPPORT 03/18/2025 [id number] / / [id number] Plt Geminus Nrw 3h Rt - [id number] Implanted:Qty: 1 on 10/30/2022 by Jg Natarajan Jr., MD at [facility] Implant Right: Hand SKELETAL DYNAMICS [id number] / / Scrw Geminus Pa Nl Ti 3.5x12mm - [id number] Implanted:Qty: 1 on 10/30/2022 by Jg Natarajan Jr., MD at [facility] Implant Right: Hand SKELETAL DYNAMICS [id number] S / / Scrw Geminus Pa Nl 3ti .5x13mm - [id number] Implanted:Qty: 1 on 10/30/2022 by Jg Natarajan Jr., MD at [facility] Implant Right: Hand SKELETAL DYNAMICS [id number] / / Peg Volr Geminus Smoth Lk Ti 2x16mm - [id number] Implanted:Qty: 1 on 10/30/2022 by Jg Natarajan Jr., MD at [facility] Implant Right: Hand SKELETAL DYNAMICS [id number] S / / Peg Volr Geminus Smoth Lk Ti 2x18mm - [id number] Implanted:Qty: 1 on 10/30/2022 by Jg Natarajan Jr., MD at [facility] Implant Right: Hand SKELETAL DYNAMICS [id number] S / / Peg Volr Geminus Smoth Lk Ti 2x21mm - [id number] Implanted:Qty: 1 on 10/30/2022 by Jg Natarajan Jr., MD at [facility] Implant Right: Hand SKELETAL DYNAMICS [id number] S / / Peg Volr Geminus Smoth Lk Ti 2x20mm - [id number] Implanted:Qty: 1 on 10/30/2022 by Jg Natarajan Jr., MD at [facility] Implant Right: Hand SKELETAL DYNAMICS [id number] S / / Peg Volr Geminus Smoth Lk Ti 2x17mm - [id number] Implanted:Qty: 1 on 10/30/2022 by Jg Natarajan Jr., MD at [facility] Implant Right: Hand SKELETAL DYNAMICS [id number] S / / Scrw Morgan Geminus Lk Ti 3.5x12mm - [id number] Implanted:Qty: 1 on 10/30/2022 by Jg Natarajan Jr., MD at [facility] Implant Right: Hand SKELETAL DYNAMICS [id number] S / / Peg Volr Geminus Smoth Lk Ti 2x19mm - [id number] Implanted:Qty: 1 on 10/30/2022 by Jg Natarajan Jr., MD at [facility] Implant Right: Hand SKELETAL DYNAMICS [id number] S / / Explanted Type Area Food And Nutrition Professor Device Identifier Shelf Expiration Date Model / Serial / Lot Kwire Std Tp 1.0x790ue - [id number] Explanted:Qty: 2 on 10/30/2022 at [facility] Implant Right: Hand SKELETAL DYNAMICS [id number] / / Kwire Std/Tp .2w990uo - [id number] Explanted:Qty: 2 on 10/30/2022 at [facility] Implant Right: Hand SKELETAL DYNAMICS [id number] / / Procedures Procedure Name Priority Date/Time Associated Diagnosis Comments HEMOGLOBIN A1C Routine 01/19/2023 5:29 AM EDT from Last 3 Months or Most Recently Relevant to Health Maintenance Results * (ABNORMAL) Hemoglobin A1c (01/19/2023 5:29 AM EDT) Hemoglobin A1C 5.70(H) 4.80 - 5.60 % 01/19/2023 9:49 AM EDT [facility] Blood Venipuncture / Unknown 01/19/2023 5:29 AM EDT 01/19/2023 7:07 AM EDT Narrative [facility] - 01/19/2023 9:49 AM EDT Hemoglobin A1C Ranges: Increased Risk for Diabetes 5.7% to 6.4% Diabetes >= 6.5% Diabetic Goal < 7.0% us Betzaida Musa DENTAL PROFESSIONAL LAB BLOOD ORDERABLES Final Result [facility]
[address] [phone] from Last 3 Months or Most Recently [...] Of Support Discussed With: Patient Care Teams Propeller Driven Airplane Mechanic Relationship Specialty Start Date End Date Ctae Frederick APRN [address] [place] [address] PCP - General Nurse Practitioner 10/25/22
--- OUTSIDE RECORDS SUMMARY | 2025-04-07 11:25 | XMS_ITS | Referral Summary ---
Author Organization [employer] ([place], [place], [place], [place]) Address [address] [place] [address] Care Team Providers Care Intensive Care Specialist Name Role Phone Cate Frederick APRN Primary Care Provider [phone] Allergies Active Allergy Reactions Criticality Noted Date [...] Date Esdras rded Speak language other than [place] at home Not on file 08/27/2023 Want help with school or training Not on file 08/27/2023 Substance Use Answer Date Recorded Used prescription meds for non-medical reasons N ot on file 08/27/2023 Used illegal drugs past 12 months Not on file 08/27/2023 Comments No Sex and Gender Information Value Date Recorded Sex Assigned at Female 10/03/2023 9:11 AM ELECTRIC CELL TENDER Legal Sex Female 5:32 PM CDT Gender Identity Female 10/03/2023 9:11 AM ELECTRIC CELL TENDER Sexual Orientation Not on file Last Filed [...] on file Medical Devices Implanted Type Area Pipe Finishing Supervisor Device Identifier Shelf Expiration Date Model / Serial / Lot Iol Uv Clareon +20.5 [id number] - [id number] Implanted:Qty: 1 on 10/03/2023 by Ahmet Mohr MD at [facility] IMPLANTS Right: Eye JOJO 12/30/2024 [id number] / [id number] / Iol Uv Clareon +21.0 [id number] - [id number] Implanted:Qty: 1 on 10/24/2023 by Ahmet Mohr MD at [facility] IMPLANTS Left: Eye JOJO 04/02/2027 [id number] / [id number] Heart Description:X2 Insurance [place] [id number] [facility] [place] ADV Care Teams Intensive Care Specialist Relationship Specialty Start Date End Date Cate Frederick, MOSS GATHERER [address] [place] [address] PCP - General Family Medicine 06/26/23
--- OUTSIDE RECORDS SUMMARY | 2025-04-07 11:25 | XMS_ITS | Encounter Summary ---
Author Organization [facility] Address [address] [place] [address] Care Team Providers Care Tobacco Drying Machine Operator Name Role Phone Cate Frederick APRN [...] Description 04/21/2025 2:20 PM EDT [facility] [address], [address] [place] [address] Marylou Laughlin MD [address] [place] [address] documented as of this encounter [...] documented as of this encounter Care Teams Tobacco Drying Machine Operator Relationship Specialty Start Date End Date Cate Frederick, MIGUEL [address] [place] [address] PCP - General 02/09/22 documented as of this encounter
--- OUTSIDE RECORDS SUMMARY | 2025-04-07 11:25 | XMS_ITS | Encounter Summary ---
Author Organization [employer] ([place], [place], [place], [place]) Address [address] [place] [address] Care Team Providers Care Manager Environmental Services Name Role Phone Cate Frederick APRN Primary Care Provider [phone] Reason for Referral * Mammography (Routine) - Closed Specialty Diagnoses / Procedures Referred By Contac t Referred To Contact Diagnoses Visit for screening mammogram Procedures MM digital mammo screen bilateral Cate Frederick APRN [address] [place] [address] Phone: tel: fax: Referral ID Status Reason Start Date Expiration Date Visits Re quested Visits Authorized [id number] Closed 06/06/2023 12/03/2023 1 1 Encounter Details Date Type Department Care Team (Late st Contact Info) Description 06/06/2023 Outside Orders [facility] Central Scheduling [address] [place] [address] Cate Frederick APRN [address] [place] [id number] Visit for screening mammogram (Primary Dx) Social [...] Date Esdras rded Speak language other than [place] at home Not on file 08/27/2023 Want help with school or training Not on file 08/27/2023 Substance Use Answer Date Recorded Used prescription meds for non-medical reasons N ot on file 08/27/2023 Used illegal drugs past 12 months Not on file 08/27/2023 Comments Unknown Sex and Gender Information Value Date Recorded Sex Assigned at Female 10/03/2023 9:11 AM DIGITAL TECH Legal Sex Female 5:32 PM CDT Gender Identity Female 10/03/2023 9:11 AM DIGITAL TECH Sexual Orientation Not on file COVID-19 Exposure [...] the next mammogram. At our facility, a [place] marker is positioned over a visible skin [...] family history of breast cancer COMPARISON STUDY: [facility] FINDINGS: Craniocaudal and mediolateral oblique images of [...] mammogram documented in this encounter Care Teams Manager Environmental Services Relationship Specialty Start Date End Date Cate Frederick, FIELD SUPPORT REPRESENTATIVE [address] [place] [address] PCP - General Family Medicine 06/26/23 documented as of this encounter
--- OUTSIDE RECORDS SUMMARY | 2025-04-07 11:25 | XMS_ITS | Encounter Summary ---
Author Organization [facility] Address [address] [place] [address] Care Team Providers Care Supervisor Drying Name Role Phone Cate Frederick APRN Primary Care Provider [phone] Encounter Details Date Type Department Care Team (Late st Contact Info) Description 03/01/2025 Results Follow-Up [place] [facility] [address], [address]nd [place] [address] Soha Gomez APRN, DNP [address] [place] [address] Social History Tobacco Use Types [...] Office Visit [facility] [address], [address] [place] [address] Marylou Laughlin MD [address] [place] [address] documented as of this encounter [...] as of this encounter Care Teams Supervisor Drying Relationship Specialty Start Date End Date Cate Frederick, MIGUEL [address] [place] [address] PCP - General 02/09/22 documented as of this encounter
--- OUTSIDE RECORDS SUMMARY | 2025-04-07 11:25 | XMS_ITS | Encounter Summary ---
Author Organization [employer] ([place], [place], [place], [place]) Address [address] [place] [address] Care Team Providers Care Chinchilla Farmer Name Role Phone Cate Frederick APRN Primary Care Provider [phone] Reason for Referral * Mammography (Routine) - Closed Specialty Diagnoses / Procedures Referred By Contac t Referred To Contact Diagnoses Visit for screening mammogram Procedures MM digital mammo screen bilateral Renee Cortés APRN [address] [address] Phone: tel: fax: Referral ID Status Reason Start Date Expiration Date Visits Re quested Visits Authorized [id number] Closed 05/06/2022 11/02/2022 1 1 Encounter Details Date Type Department Care Team (Late st Contact Info) Description 05/06/2022 Outside Orders [facility] Central Scheduling 1 [place] [id number] Renee Cortés JET BLADE POLISHER [address] [address] Visit for screening mammogram (Primary Dx) Social History Tobacco Use Types Packs/Day Years Used Date Smoking Tobacco: Never Assessed Comments Unknown Sex and Gender Information Value Date Recorded Sex Assigned at Female 10/03/2023 9:11 AM BILLPOSTING SUPERVISOR Legal Sex Female 5:32 PM CDT Gender Identity Female 10/03/2023 9:11 AM BILLPOSTING SUPERVISOR Sexual Orientation Not on file documented as [...] distortion or clustered microcalcifications. us Renee Cortés JET BLADE POLISHER IMG MAMMOGRAPHY ORDERABLES Final Result documented in this encounter Visit Diagnoses Diagnosis Visit for screening mammogram- Primary Visit for screening mammogram documented in this encounter Care Teams Chinchilla Farmer Relationship Specialty Start Date End Date Cate Frederick, JET BLADE POLISHER [address] [place] [address] PCP - General Family Medicine 06/26/23 documented as of this encounter
--- OUTSIDE RECORDS SUMMARY | 2025-04-07 11:25 | XMS_ITS | Encounter Summary ---
Author Organization [facility] Address [address] [place] [address] Care Team Providers Care Insulation Hoseman Name Role Phone Cate Frederick APRN Primary Care Provider [phone] Encounter Details Date Type Department Care Team (Late st Contact Info) Description 02/16/2025 Orders Only [place] [facility] [address], [address] [place] [address] Mary [place] APRN [address] [place] [address] Radha glabrata infection (Primary Dx); [...] Description 04/21/2025 2:20 PM EDT Office Visit [place] [facility] [address], [address] [place] [address] Marylou Laughlin MD [address] [place] [address] documented as of this encounter [...] documented as of this encounter Care Teams Insulation Hoseman Relationship Specialty Start Date End Date Cate Frederick APRN [address] [place] [address] PCP - General 02/09/22 documented as of this encounter
--- OUTSIDE RECORDS SUMMARY | 2025-04-07 11:25 | XMS_ITS | Encounter Summary ---
Author Organization [facility] Address [address] [place] [address] Care Team Providers Care Dish Maker Name Role Phone Cate Frederick APRN Primary [...] Office Visit [place] [facility] [address] [place] [address] Marylou Laughlin MD [address] [place] [address] documented as of this encounter [...] documented as of this encounter Care Teams Dish Maker Relationship Specialty Start Date End Date Cate Frederick, MIGUEL [address] [place] [address] PCP - General 02/09/22 documented as of this encounter
--- OUTSIDE RECORDS SUMMARY | 2025-04-07 11:25 | XMS_ITS | Encounter Summary ---
Author Organization [facility] Address [address] [place] [address] Care Team Providers Care Consulting Technical Director Name Role Phone Cate Frederick APRN Primary [...] Description 04/21/2025 2:20 PM EDT Office Visit [place] [facility] [address], [address] [place] [address] Marylou Laughlin MD [address] [place] [address] documented as of this encounter [...] documented as of this encounter Care Teams Consulting Technical Director Relationship Specialty Start Date End Date Cate Frederick, MIGUEL [address] [place] [address] PCP - General 02/09/22 documented as of this encounter
--- OUTSIDE RECORDS SUMMARY | 2025-04-07 11:25 | XMS_ITS | Encounter Summary ---
Author Organization [facility] Address [address] [place] [address] Care Team Providers Care Monotype Machinist Name Role Phone Cate Frederick APRN Primary Care Provider [phone] Encounter Details Date Type Department Care Team [...] Description 04/21/2025 2:20 PM EDT Office Visit [place] [facility] [address], [address] [place] [address] Marylou Laughlin MD [address] [place] [address] documented as of this encounter [...] documented as of this encounter Care Teams Monotype Machinist Relationship Specialty Start Date End Date Cate Frederick APRN [address] [place] [address] PCP - General 02/09/22 documented as of this encounter
--- OUTSIDE RECORDS SUMMARY | 2025-04-07 11:25 | XMS_ITS | Encounter Summary ---
Author Organization [facility] Address [address] [place] [address] Care Team Providers Care Rehabilitation Psychologist Name Role Phone Cate Frederick APRN Primary Care Provider [phone] Reason for Visit * Reason Onset Date Comments HCN Clinical Concern/Question 03/09/2025 Encounter Details Date Type Department Care Team (Late st Contact Info) Description 03/09/2025 Telephone [place] [facility] [address], [address] [place] [address] Mary [place] APRN [address] [place] [address] HCN Clinical Concern/Question Social History [...] with info. Thank you Best contact number: [phone] (mobile) Optimal time of day to reach caller: ANYTIME Additional comments/information from caller: None Note: Please do not reply to this message. Follow-up communication and further actions as a result of this message need to be communicated with the patient directly, if the patient is not active onMyChart. If the patient is active on MyChart, they will receive notification of the communication/outcome via [employer]. documented in this encounter Plan of Treatment Upcoming Encounters Date Type Department Care Team (Late st Contact Info) Description 04/21/2025 2:20 PM EDT Office Visit [place] [facility] [address] [place] [address] Marylou Laughlin MD [address] [place] [address] documented as of this encounter [...] documented as of this encounter Care Teams Rehabilitation Psychologist Relationship Specialty Start Date End Date Cate Frederick, MIGUEL [address] [place] [address] PCP - General 02/09/22 documented as of this encounter
--- OUTSIDE RECORDS SUMMARY | 2025-04-07 11:25 | XMS_ITS | Clinical Summary ---
Author Organization [employer] ([place], [place], [place], [place]) Address [address] [place] [address] Care Team Providers Care Airline Hostess Name Role Phone Cate Frederick APRN Primary Care Provider [phone] Allergies Active Allergy Reactions Criticality Noted Date [...] Date Esdras rded Speak language other than [place] at home Not on file 08/27/2023 Want help with school or training Not on file 08/27/2023 Substance Use Answer Date Recorded Used prescription meds for non-medical reasons N ot on file 08/27/2023 Used illegal drugs past 12 months Not on file 08/27/2023 Comments No Sex and Gender Information Value Date Recorded Sex Assigned at Female 10/03/2023 9:11 AM SEISMOGRAPH RECORDER Legal Sex Female 5:32 PM CDT Gender Identity Female 10/03/2023 9:11 AM SEISMOGRAPH RECORDER Sexual Orientation Not on file Last Filed [...] 05/09/2020, 2017 Medical Devices Implanted Type Area Tyre Retreader Device Identifier Shelf Expiration Date Model / Serial / Lot Iol Uv Clareon +20.5 [id number] - [id number] Implanted:Qty: 1 on 10/03/2023 by Ahmet Mohr MD at [facility] IMPLANTS Right: Eye JOJO 12/30/2024 [id number] / [id number] / Iol Uv Clareon +21.0 [id number] - [id number] Implanted:Qty: 1 on 10/24/2023 by Ahmet Mohr MD at [facility] IMPLANTS Left: Eye JOJO 04/02/2027 [id number] / [id number] / Stents Heart Description:X2 Insurance [place] [id number] [facility] Care Teams Airline Hostess Relationship Specialty Start Date End Date Cate Frederick, PRODUCT DESIGNER [address] [place] [id number] PCP - General Family Medicine 06/26/23
--- OUTSIDE RECORDS SUMMARY | 2025-04-07 11:25 | XMS_ITS | Encounter Summary ---
Author Organization [facility] Address [address] [place] [address] Care Team Providers Care Talent Development Manager Name Role Phone Cate Frederick APRN Primary Care Provider [phone] Encounter Details Date Type Department Care Team [...] Description 04/21/2025 2:20 PM EDT Office Visit [place] [facility] [address], [address] [place] [address] Marylou Laughlin MD [address] [place] [address] documented as of this encounter [...] documented as of this encounter Care Teams Talent Development Manager Relationship Specialty Start Date End Date Cate Frederick, MIGUEL [address] [place] [address] PCP - General 02/09/22 documented as of this encounter
--- OUTSIDE RECORDS SUMMARY | 2025-04-07 11:25 | XMS_ITS | Encounter Summary ---
Author Organization [facility] Address [address] [place] [address] Care Team Providers Care Custom Garment Designer Name Role Phone Cate Frederick APRN [...] Office Visit [facility] [address], [address]nd [place] [address] Marylou Laughlin MD [address] [place] [address] documented as of this encounter [...] documented as of this encounter Care Teams Custom Garment Designer Relationship Specialty Start Date End Date Cate Frederick, MIGUEL [address] [place] [address] PCP - General 02/09/22 documented as of this encounter
--- OUTSIDE RECORDS SUMMARY | 2025-04-07 11:25 | XMS_ITS | Encounter Summary ---
Author Organization [facility] ([place], [place], [place], [place]) Address [address] [place] [address] Care Team Providers Care Haul Driver Name Role Phone Cate Frederick APRN Primary Care Provider [phone] Reason for Referral * Mammography (Routine) - New Request Specialty Diagnoses / Procedures Referred By Contac t Referred To Contact Diagnoses Other screening mammogram Procedures MM digital mammo screen with dayana bilateral Cate Frederick APRN [address] [place] [address] Phone: tel: fax: Referral ID Status Reason Start Date Expiration Date V isits Requested Visits Authorized [id number] New Request 06/19/2024 06/19/2025 1 1 Encounter Details Date Type Department Care Team (Late st Contact Info) Description 06/19/[address] [facility] Central Scheduling [address] [place] [address] Cate Frederick APRN [address] [place], [place] [id number] Other screening mammogram (Primary Dx) Social History [...] Date Esdras rded Speak language other than Qatari at home Not on file 08/27/2023 Want help with school or training Not on file 08/27/2023 Substance Use Answer Date Recorded Used prescription meds for non-medical reasons N ot on file 08/27/2023 Used illegal drugs past 12 months Not on file 08/27/2023 Comments No Sex and Gender Information Value Date Recorded Sex Assigned at Female 10/03/2023 9:11 AM AUTOMOTIVE WARRANTY ADMINISTRATOR Legal Sex Female 5:32 PM CDT Gender Identity Female 10/03/2023 9:11 AM AUTOMOTIVE WARRANTY ADMINISTRATOR Sexual Orientation Not on file documented as [...] areas of focal mammographic concern. Cate Frederick ACADEMIC SPECIALIST IMG MAMMOGRAPHY ORDERABLES F inal Result documented in this encounter Visit Diagnoses Diagnosis Other screening mammogram- Primary Other screening mammogram documented in this encounter Care Teams Haul Driver Relationship Specialty Start Date End Date Cate Frederick, ACADEMIC SPECIALIST [address] [place] [address] PCP - General Family Medicine 06/26/23 documented as of this encounter
--- OUTSIDE RECORDS SUMMARY | 2025-04-07 11:26 | XMS_ITS | Clinical Summary ---
Author Organization [facility] Address [address] 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/2023 Nodule of kidney 01/16/2023 Recurrent UTI 10/04/2022 Incomplete emptying of bladder 10/04/2022 Atrophic vaginitis 10/04/2022 Urinary frequency 10/04/2022 Urinary urgency 10/04/2022 Encounters Date Type Department Care Team Description 03/12/2025 Orders Only [facility] [address], [address] [place] [address] Mary Cross APRN Candiduria (Primary Dx); Radha glabrata infection 03/11/2025 Telephone [facility] [address], 2[address] [place] [address] Mary Cross APRN HCN - Patient Message (Missed call ) 03/09/2025 Telephone [facility] [address] [facility] [place] [address] Mary Cross APRN HCN Clinical Concern/Question 03/05/2025 Telephone [facility] [address], [facility] [place] [address] Dayana Tavera 03/01/2025 Results Follow-Up [facility] [address], [facility] [place] [address] Soha Gomez APRN, DNP 02/26/2025 1:15 PM EDT Clinical Support [facility] [address], [facility] [place] [address] Chelsea Cole LPN Candiduria (Primary Dx) 02/26/2025 Travel 02/25/2025 1:15 PM EDT Clinical Support [facility] [address], [facility] [place] [address] Marek Bello Candiduria (Primary Dx); Radha glabrata infection 02/25/2025 Travel 02/24/2025 1:30 PM EDT Clinical Support [facility] [address], [facility] [place] [address] Germaine Francisco LPN Recurrent UTI (Primary Dx) 02/24/2025 Travel 02/23/2025 1:15 PM EDT Clinical Support [facility] [address], [facility] Floor [facility] [place] [address] Chelsea Cole LPN Radha glabrata infection (Primary Dx) 02/23/2025 Travel 02/22/2025 1:15 PM EDT Clinical Support [facility] [address], [facility] [place] [address] Chelsea Cole LPN Radha glabrata infection (Primary Dx) 02/22/2025 Travel 02/18/2025 11:00 AM EDT Procedure Visit [facility] [address], 2nd [place] [address] Chelsea Cole LPN Radha glabrata infection (Primary Dx) 02/18/2025 Travel 02/17/2025 9:40 AM EDT Procedure Visit [facility] [address], [facility] [place] [address] Mary Cross APRN Candiduria (Primary Dx); Radha glabrata infection 02/17/2025 Travel 02/16/2025 Orders Only [facility] [address] [place] [address], [facility] [place] [address] Mary Cross APRN Radha glabrata infection (Primary Dx); Candiduria 02/15/2025 Results Follow-Up [facility] [address] [place] [address], [address] [place] [address] Mary Cross APRN 02/11/2025 10:20 AM EDT Office Visit [facility] [address] [place] [address], [facility] [place] [address] Mary Cross APRN Recurrent UTI (Primary Dx); Bladder pain; Chronic ulcerating interstitial cystitis 02/11/2025 Travel 02/02/2025 Telephone [facility] [address] [place] [address] Mary Cross APRN HCN - Patient [...] Office Visit [place] [facility] [address], [address] [place] [address] Marylou Laughlin MD [address] [place] [address] Health Maintenance Due Date Last Done Comments [facility]-Bone Density Scan 1940 [facility]Medicare Annual Wellness (AWV) 1940 [facility]-Infant/Child/Adol SDOH Screenings 1940 [facility]- SDOH Screenings 1958 [facility]-Adult SDOH Screenings 1958 [facility]-DTaP,Tdap,and Td Vaccines (1 - Tdap) 1959 [facility]-Zoster Vaccines (1 of 2) 1990 [facility]-RSV Vaccine: 60+ Years or (1 - 1-dose 75+ series) 2015 [facility]-Pneumococcal Vaccine: 50+ Years (2 of 2 - PCV) 06/10/2020 06/10/2019 [id number] Vaccine (5 - season) 2024 03/29/2022, 04/27/2021, 10/13/2020, Additional history [...] - AUTOMATED METHOD 02/23/2025 6:51 PM EDT [facility] WBC, Urine >50(A) 0 to 5 /HPF LAB URINALYSIS - AUTOMATED METHOD 02/23/2025 6:51 PM EDT [facility] Squamous Epithelial Cells 0 - 2 0 to 5 /HPF LAB URINALYSIS - AUTOMATED METHOD 02/23/2025 6:51 PM EDT [facility] Hyaline Casts 0 - 2 0 to 5 /LPF LAB URINALYSIS - AUTOMATED METHOD 02/23/2025 6:51 PM EDT [facility] Bacteria, Urine Negative Negative LAB URINALYSIS - AUTOMATED METHOD 02/23/2025 6:51 PM EDT [facility] Urine Urine specimen obtained by clean catch procedure / Unknown Non-blood Collection / Unknown 02/23/2025 1:48 PM EDT 02/23/2025 4:41 PM EDT us Mary Cross APRN LAB URINE ORDERABLES Final Result [facility] [address] [place] [address] * (ABNORMAL) Fungal Culture, Routine (02/23/2025 1:48 PM EDT) Only the most recent of2 resultswithin the time period is included. Culture Heavy Growth Radha glabrata(A) 03/03/2025 9:36 AM EDT [facility] Comment: This isolate has been identified using the FDA Approved Datappraiseer [place] System Edited result: Previously reported as Yeast on 02/26/2025 at 0938 EDT. Urine Urine specimen obtained by clean catch procedure / Unknown Non-blood Collection / Unknown 02/23/2025 1:48 PM EDT 02/23/2025 4:41 PM EDT us Mary Cross APRN LAB MICROBIOLOGY - GENERAL ORDERABLES Final Result Performing Organization Address City/[facility] [[email or web address]] [place] [address] * Urine Culture (02/23/2025 1:48 PM EDT) Only the most recent of2 resultswithin the time period is included. Culture No growth at day 1 02/25/2025 11:16 AM EDT [facility] Urine Urine specimen obtained by clean catch procedure / Unknown Non-blood Collection / Unknown 02/23/2025 1:48 PM EDT 02/23/2025 4:41 PM EDT us Mary Cross APRN LAB MICROBIOLOGY - GENERAL ORDERABLES Final Result Performing Organization Address City/[facility]/ZIP Co de Phone Number [facility] [address] [place] [address] * (ABNORMAL) POCT URINALYSIS DIPSTICK (02/17/2025 9:56 AM EDT) Only the most recent of2 resultswithin the time period is included. POCT Urine Color Yellow 02/17/2025 9:58 AM EDT [facility] POCT Urine Clarity Clear 02/17/2025 9:58 AM EDT [facility] POCT Urine Glucose >=1000(A) Negative mg/dL 02/17/2025 9:58 AM EDT [facility] POCT Urine Bilirubin Negative Negative mg/dL 02/17/2025 9:58 AM EDT [facility] POCT Urine Ketones Trace(A) Negative mg/dL 02/17/2025 9:58 AM EDT [facility] POCT Urine Specific [place] 1.025 1.005 - 1.030 02/17/2025 9:58 AM EDT [facility] POCT Urine Blood Large(A) Negative 02/17/2025 9:58 AM EDT [facility] POCT pH, Urine 5.5 5.0 - 8.0 02/17/2025 9:58 AM EDT [facility] POCT Protein, Urine >=300(A) Negative mg/dL 02/17/2025 9:58 AM EDT [facility] POCT Urobilinogen, Urine 0.2 0.2, 1.0 EU/dL 02/17/2025 9:58 AM EDT [facility] POCT Nitrite, Urine Negative Negative 02/17/2025 9:58 AM EDT [facility] POCT Urine Leukocyte Esterase Small(A) Negative 02/17/2025 9:58 AM EDT [facility] Urine 02/17/2025 9:56 AM EDT 02/17/2025 9:58 AM EDT us Mary Cross APRN LAB POINT OF CARE TEST DOCKED DEVICE UNSOLICITED RESULTS Final Result Performing Organization Address [facility]/State/[facility] de Phone Number [facility] [address], [place] * POC US Bladder Volume (02/11/2025 10:35 AM EDT) Urine, Volume 1 mL IMAGING Anatomical Region Laterality Modality Other us Mary Cross APRN IMG POINT OF CARE ULTRASOU ND Final Result from Last 3 Months Insurance ANTHEM MEDICARE Care Teams Chute Puller Relationship Specialty Start Date End Date Cate Frederick, MIGUEL [address] [place] [address] PCP - General 02/09/22
--- OUTSIDE RECORDS SUMMARY | 2025-04-07 11:26 | XMS_ITS | Encounter Summary ---
Author Organization [facility] Address [address] [place] [address] Care Team Providers Care Skiing Instructor Name Role Phone Cate Frederick APRN [...] Description 04/21/2025 2:20 PM EDT Office Visit [facility] [address], 2nd [place] [address] Marylou Laughlin MD [address] [place] [address] documented as [...] documented as of this encounter Care Teams Skiing Instructor Relationship Specialty Start Date End Date Cate Frederick, MIGUEL [address] [place] [address] PCP - General 02/09/22 documented as of this encounter
--- OUTSIDE RECORDS SUMMARY | 2025-04-07 11:26 | XMS_ITS | Encounter Summary ---
Author Organization [facility] Address [address] [place] [address] Care Team Providers Care Irrigationist Designer Name Role Phone Cate Frederick APRN Primary Care Provider [phone] Reason for Referral * Consultation (Routine) - Authorized Specialty Diagnoses / Procedures Referred By Ольга t Referred To Contact Infectious Diseases Diagnoses Candiduria Radha glabrata infection Mary Cross APRN [address] [address] Phone: tel: fax: Referral ID Status Reason Start Date Expiration Date Visits Requested Visits Authorized [id number] Authorized Specialty Services Required 03/12/2025 09/11/2026 1 1 Encounter Details Date Type Department Care Team (Late st Contact Info) Description 03/12/2025 Orders Only [facility] [address], [address] [place] [address] Mary Cross APRN [id number] [place] [address] Candiduria (Primary Dx); Radha glabrata [...] - 03/12/2025 8:45 AM EDT Referred to [facility] for no change in symptoms with ampho B instillations documented in this encounter Plan of Treatment Upcoming Encounters Date Type Department Care Team (Late st Contact Info) Description 04/21/2025 2:20 PM EDT Office Visit [facility] [address], [address] [place] [address] Marylou Laughlin MD [address] [place] [address] Scheduled Referrals Name Type Priority Associated Diagnoses [...] documented as of this encounter Care Teams Irrigationist Designer Relationship Specialty Start Date End Date Cate Frederick APRN [address] [place] [address] PCP - General 02/09/22 documented as of this encounter
--- NOTE | 2025-04-07 11:30 | NM_ITS ---
APPROVED REPORT Exam: Nuclear Stress Test Indication: soa..fatigue Patient Location: Outpatient Stress Tech: Mackenzie Bello HI Tech:VERÓNICA Cannon RT(R)(N) Ht: 5 ft 2 in Wt: 127 lbs Bra Size: 36b HR: 60 bpm BP: 187/70 mmHg BSA: 1.58 m2 TID: 1.00 BMI: 23.2 History: soa..fatigue Procedure: Patient received 0.4 mg of intravenous Lexiscan, resting heart rate 60 bpm, resting blood pressure 187/70 mmHg, with Lexiscan maximum heart rate achieved was 60 bpm which is 85 % of the maximum predicted heart rate and blood pressure was 169/52 mmHg. With Lexiscan, patient denied any complaint of chest pain. The patient was not able to lay on her abdomen for prone images. Cardiac Stress and Resting SPECT Images: Cardiac Stress and Resting SPECT images were obtained using technetium 99m Myoview 30.9 mCi stress and 10.28 mCi at rest. The patient was unable to lie on her abdomen. Therefore, prone stress imaging could not be performed. This may affect diagnostic interpretation of the study findings. Resting and stress imaging in supine positions demonstrate a large sized, severe, predominantly fixed perfusion defect in the anterior, septal, anteroseptal, and inferoseptal, as well as the apical LV jacobson. There is a small region of reversibility towards the inferoseptal LV wall. Gated imaging demonstrates mild reduction in global LV systolic function. LVEF is calculated 46%. Conclusion: Large sized, severe, predominantly fixed perfusion defect in the anterior, septal, anteroseptal, and inferoseptal, as well as the apical LV jacobson. There is a small region of reversibility towards the inferoseptal LV wall. Findings are suggestive of partial reversible ischemia. Gated imaging demonstrates mild reduction in global LV systolic function. LVEF is calculated 46%. Electronically signed by : Triny Mao MD 04/08/2025 12:58:37
[2025-04-07] MEDS: ISOTOPE MYOVIEW (PER STUDY) 1 DOSE IV (14:12)
[2025-04-07] MEDS: SODIUM CHLORIDE 0.9% 10ML SYR (RAD ONLY) 10 ML IV ×2 (14:12)
== END 2025-04-07 23:59 | disposition home or self-care (01) ==
LOC: RAD 11:18
PROVIDERS: PCP Nurse Practitioner Family; Visit Provider Nurse Practitioner Family
DX: I49.3 Ventricular premature depolarization (principal); I48.92 Unspecified atrial flutter; I11.0 Hypertensive heart disease with heart failure; I50.30 Unspecified diastolic (congestive) heart failure; I25.10 Atherosclerotic heart disease of native coronary artery without angina pectoris; I71.23 Aneurysm of the descending thoracic aorta, without rupture; R93.1 Abnormal findings on diagnostic imaging of heart and coronary circulation; R94.31 Abnormal electrocardiogram [ECG] [EKG]; R94.39 Abnormal result of other cardiovascular function study
CPT/HCPCS: 78452; 93016; 93017; 93018; A9502; J2785

== ENCOUNTER 2025-04-08 14:43 | Outpatient (CLI) | payer MEDICARE, SELFPAY ==
--- OUTSIDE RECORDS SUMMARY | 2025-02-11 10:20 | XMS_ITS | Encounter Summary ---
Author Organization [facility] Address [address] [place] [place] [address] Care Team Providers Care Oral And Maxillofacial Surgeon Name Role Phone Cate Frederick APRN Primary Care Provider [phone] Reason for Referral * Other Medical (Routine) - Pending Review Specialty Diagnoses / Procedures Referred By Ольга chavez Referred To Contact Urology Diagnoses Bladder pain Chronic ulcerating interstitial cystitis Procedures Cysto- Urology Mary Cross APRN [address] [address] Phone: tel: fax: Referral ID Status Reason Start Date Expiration Date V isits Requested Visits Authorized [id number] Pending Review 02/11/2025 08/13/2026 1 1 Reason for Visit * Reason Comments Urinary Retention Follow-up Encounter Details Date Type Department Care Team (Late st Contact Info) Description 02/11/2025 10:20 AM EDT Office Visit [facility] [address] [place] [address] Mary Cross APRN [address] [facility] [address] [place] [address] Recurrent UTI (Primary Dx); Bladder [...] Cross APRN - 02/11/2025 10:20 AM EDT [facility] Clinic Note 02/11/25 CC: Urinary [...] Ketones Negative Negative mg/dL POCT Urine Specific [place] >=1.030 1.005 - 1.030 POCT Urine Blood [...] Ketones Negative Negative mg/dL POCT Urine Specific [place] >=1.030 1.005 - 1.030 POCT Urine Blood [...] Description 04/21/2025 2:20 PM EDT Office Visit [facility] [address] [place] [address] Marylou Laughlin MD [address] [place] [address] Scheduled Orders Name Type Priority [...] to 3 /HPF 02/11/2025 6:53 PM EDT [facility] WBC, Urine >50(A) 0 to 5 /HPF 02/11/2025 6:53 PM EDT [facility] Squamous Epithelial Cells Unable to estimate due to obscuring WBC's (UNEWBC) 0 to 5 /HPF 02/11/2025 6:53 PM EDT [facility] Hyaline Casts Unable to estimate due to obscuring WBC's (UNEWBC) 0 to 5 /LPF 02/11/2025 6:53 PM EDT [facility] Bacteria, Urine Present Negative 02/11/2025 6:53 PM EDT [facility] Yeast (Budding and/or Pseudohyphae) Present(A) Absent 02/11/2025 6:53 PM EDT [facility] Urine Urine specimen from urinary conduit / Unknown Non-blood Collection / Unknown 02/11/2025 12:07 PM EDT 02/11/2025 4:51 PM EDT Narrative [facility] - 02/11/2025 6:53 PM EDT Performed by manual method Mary [employer] Tay GURROLAN LAB URINE ORDERABLES Final Result Performing Organization Address [facility] [place] [address] * (ABNORMAL) Fungal Culture, Routine (02/11/2025 12:07 PM EDT) Culture Confluent Growth Radha glabrata(A) 02/18/2025 1:12 PM EDT [facility] Comment: This isolate has been identified using the FDA Approved [employer] [place] System Edited result: Previously reported as Yeast on 02/15/2025 at 1037 EDT. Urine Urine specimen / Unknown Non-blood Collection / Unknown 02/11/2025 12:07 PM EDT 02/11/2025 4:51 PM EDT us Mary Cross APRN LAB MICROBIOLOGY - GENERAL ORDERABLES Final Result Performing Organization Address [facility] [place] [address] * (ABNORMAL) Urine Culture (02/11/2025 12:07 PM EDT) Culture >=100,000 CFU/mL Lactobacillus species(A) 02/15/2025 9:56 AM EDT [facility] Comment:This is a corrected result. Previous organism was Alpha hemolytic streptococcus vs gram positive meaghan on 02/12/2025 at 1601 EDT. Culture >=100,000 CFU/mL Radha glabrata(A) 02/15/2025 9:56 AM EDT [facility] Comment: This isolate has been identified using the FDA Approved [employer] CA System Contact Microbiology (08367) within 24 hours if susceptibility required. The [...] LAB MICROBIOLOGY - GENERAL ORDERABLES Final Result [facility] [address] [place] [address] * POC US Bladder Volume (02/11/2025 10:35 AM EDT) Urine, Volume 1 mL IMAGING Anatomical Region Laterality Modality Other us Mary Cross APRN IMG POINT OF CARE ULTRASOU [place] Final Result * (ABNORMAL) POCT URINALYSIS DIPSTICK (02/11/2025 10:24 AM EDT) POCT Urine Color Dark Yellow 02/11/2025 10:26 AM EDT [facility] POCT Urine Clarity Turbid 02/11/2025 10:26 AM EDT [facility] POCT Urine Glucose 250(A) Negative mg/dL 02/11/2025 10:26 AM EDT [facility] POCT Urine Bilirubin Negative Negative mg/dL 02/11/2025 10:26 AM EDT [facility] POCT Urine Ketones Negative Negative mg/dL 02/11/2025 10:26 AM EDT [facility] POCT Urine Specific [place] >=1.030 1.005 - 1.030 02/11/2025 10:26 AM EDT [facility] POCT Urine Blood Large(A) Negative 02/11/2025 10:26 AM EDT [facility] POCT pH, Urine 5.5 5.0 - 8.0 02/11/2025 10:26 AM EDT [facility] POCT Protein, Urine >=300(A) Negative mg/dL 02/11/2025 10:26 AM EDT [facility] POCT Urobilinogen, Urine 0.2 0.2, 1.0 EU/dL 02/11/2025 10:26 AM EDT [facility] POCT Nitrite, Urine Negative Negative 02/11/2025 10:26 AM EDT [facility] POCT Urine Leukocyte Esterase Trace(A) Negative 02/11/2025 10:26 AM EDT [facility] Urine 02/11/2025 10:2 4 AM EDT 02/11/2025 10:26 AM EDT us Mary Cross APRN LAB POINT OF CARE TEST DOCKED DEVICE UNSOLICITED RESULTS Final Result [facility] [address] [place], [place] documented in this encounter Visit Diagnoses [...] documented as of this encounter Care Teams Oral And Maxillofacial Surgeon Relationship Specialty Start Date End Date Cate Frederick APRN [address] [place] [address] PCP - General 02/09/22 documented as of this encounter
--- OUTSIDE RECORDS SUMMARY | 2025-02-17 09:40 | XMS_ITS | Encounter Summary ---
Author Organization [facility] Address [address] [place] [address] Care Team Providers Care Wrist Hemmer Name Role Phone Cate Frederick APRN Primary Care Provider [phone] Reason for Visit * Reason Comments Cystitis Encounter Details Date Type Department Care Team (Latest Contact Info) Description 02/17/2025 9:40 AM EDT Procedure Visit [facility] [address] [place] [address] Mary Cross APRN [address] [place] [address] Candiduria (Primary Dx); Megan glabrata infection Social History Tobacco Use Types Packs/Day Years [...] Sign Reading Time Taken Comments Blood Pressure 126/67 02/17/2025 9:47 AM EDT Pulse 86 02/17/2025 9:47 AM EDT Temperature - - Respiratory Rate - - Oxygen Saturation - - Inhaled Oxygen Concentration - - Weight - - Height - - Body Mass Index - - documented in this encounter Miscellaneous Notes * Progress Notes - Mary Cross, WINDOWS SERVER ARCHITECT - 02/17/2025 9:40 AM EDT [facility] Urology Clinic Note 02/17/25 CC: No chief complaint on file. HPI: Claribel Skelton is a 84 y.o. 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 She returned on 02/11/25 and reported complete resolution of urinary symptoms until the [...] also on Glipizide and this has improved. Her cath urine showed thick/white urine. She was irrigated and given an instillation. Her culture grew megan glabrata and she comes in today for ampho B instillation. She is scheduled for a cystoscopy with Dr. Laughlin. PMHx: Past Medical History[1] PSHx: Surgical History[2] FHx: Family History[3] SHx: Social History[4] OBHx: OB History No obstetric history on file. ROS: See HPI Physical Exam: Vitals: 02/17/25 0947 BP: 126/67 Pulse: 86 Physical Exam Vitals reviewed. Constitutional: Appearance: Normal [...] 72 hours) POCT URINALYSIS DIPSTICK Collection Time: 02/17/25 9:56 AM Result Value Ref Range POCT Urine Color Yellow POCT Urine Clarity Clear POCT Urine Glucose >=1000 (A) Negative mg/dL POCT Urine Bilirubin Negative Negative mg/dL POCT Urine Ketones Trace (A) Negative mg/dL POCT Urine Specific [place] 1.025 1.005 - 1.030 POCT Urine Blood Large (A) Negative POCT pH, Urine 5.5 5.0 - 8.0 POCT Protein, Urine >=300 (A) Negative mg/dL POCT Urobilinogen, Urine 0.2 0.2, 1.0 EU/dL POCT Nitrite, Urine Negative Negative POCT Urine Leukocyte Esterase Small (A) Negative Urine, Volume Date Value Ref Range Status [...] Ketones Negative Negative mg/dL POCT Urine Specific [place] >=1.030 1.005 - 1.030 POCT Urine Blood Large (A) Negative POCT pH, Urine 5.5 5.0 - 8.0 POCT Protein, Urine >=300 (A) Negative mg/dL POCT Urobilinogen, Urine 0.2 0.2, 1.0 EU/dL POCT Nitrite, Urine Negative Negative POCT Urine Leukocyte Esterase Trace (A) Negative POC US Bladder Volume Collection Time: 02/11/25 10:35 AM Result Value Ref Range Urine, Volume 1 mL Urine Culture Collection Time: 02/11/25 12:07 PM Specimen: Urine, Cath In and Out Result Value Ref Range Culture >=100,000 CFU/mL Lactobacillus species (A) Culture >=100,000 CFU/mL Megan glabrata (A) Fungal Culture, Routine Collection Time: 02/11/25 12:07 PM Specimen: Urine, Cath In and Out Result Value Ref Range Culture Confluent Growth Megan glabrata (A) Urinalysis, Microscopic Collection Time: 02/11/25 12:07 PM Result Value Ref Range RBC, Urine Unable to estimate due to obscuring WBC's (UNEWBC) 0 to 3 /HPF WBC, Urine >50 (A) 0 to 5 /HPF Squamous Epithelial Cells Unable to estimate due to obscuring WBC's (UNEWBC) 0 to 5 /HPF Hyaline Casts Unable to estimate due to obscuring WBC's (UNEWBC) 0 to 5 /LPF Bacteria, Urine Present Negative Yeast (Budding and/or Pseudohyphae) Present (A) Absent POCT URINALYSIS DIPSTICK Collection Time: 02/17/25 9:56 AM Result Value Ref Range POCT Urine Color Yellow POCT Urine Clarity Clear POCT Urine Glucose >=1000 (A) Negative mg/dL POCT Urine Bilirubin Negative Negative mg/dL POCT Urine Ketones Trace (A) Negative mg/dL POCT Urine Specific [place] 1.025 1.005 - 1.030 POCT Urine Blood Large (A) Negative POCT pH, Urine 5.5 5.0 - 8.0 POCT Protein, Urine >=300 (A) Negative mg/dL POCT Urobilinogen, Urine 0.2 0.2, 1.0 EU/dL POCT Nitrite, Urine Negative Negative POCT Urine Leukocyte Esterase Small (A) Negative Cultures: Lab Results Component Value Date URINECX >=100,000 CFU/mL Lactobacillus species (A) 02/11/2025 URINECX >=100,000 CFU/mL Megan glabrata (A) 02/11/2025 Imaging: Procedures: Bladder catheterization was performed by [...] was noted. A residual urine output of 10 ml was noted from the straightcatheter. 15 mg amphotericin B instilled. Assessment: Claribel Skelton is a 84 y.o. F with No chief complaint on file. Here today for ampho B instillation. She previously had fulguration with Dr. Laughlin with complete resolution of symptoms until recently. Cath urine obtained and revealed thick, white, milky urine. Will get her set up for repeat cystoscopy in the office to determine if ulcers are present. She is now on two blood-thinners, has a pacemaker, and stent increasing her surgical risks. Plan: Daily ampho B x 7 days Mary Cross APRN [1] Past Medical History: [...] Description 04/21/2025 2:20 PM EDT Office Visit [facility] U[facility] [address] [place] [address] Marylou Laughlin MD [address] [place] [address] documented as of this encounter Procedures Procedure Name Priority Date/Time Associated Diagnosis Comments POCT URINALYSIS DIPSTICK Routine 02/17/2025 9:56 AM EDT documented in this encounter Results * (ABNORMAL) POCT URINALYSIS DIPSTICK (02/17/2025 9:56 AM EDT) POCT Urine Color Yellow 02/17/2025 9:58 AM EDT [facility] POCT Urine Clarity Clear 02/17/2025 9:58 AM EDT [facility] POCT Urine Glucose >=1000(A) Negative mg/dL 02/17/2025 9:58 AM EDT [facility] POCT Urine Bilirubin Negative Negative mg/dL 02/17/2025 9:58 AM EDT [facility] POCT Urine Ketones Trace(A) Negative mg/dL 02/17/2025 9:58 AM EDT [facility] POCT Urine Specific [place] 1.025 1.005 - 1.030 02/17/2025 9:58 AM EDT [facility] POCT Urine Blood Large(A) Negative 02/17/2025 9:58 AM EDT [facility] POCT pH, Urine 5.5 5.0 - 8.0 02/17/2025 9:58 AM EDT [facility] POCT Protein, Urine >=300(A) Negative mg/dL 02/17/2025 9:58 AM EDT [facility] POCT Urobilinogen, Urine 0.2 0.2, 1.0 EU/dL 02/17/2025 9:58 AM EDT [facility] POCT Nitrite, Urine Negative Negative 02/17/2025 9:58 AM EDT [facility] POCT Urine Leukocyte Esterase Small(A) Negative 02/17/2025 9:58 AM EDT [facility] Urine 02/17/2025 9:56 AM EDT 02/17/2025 9:58 AM EDT us Mary Cross APRN LAB POINT OF CARE TEST DOCKED DEVICE UNSOLICITED RESULTS Final Result [facility] [address] [place], [place] documented in this encounter Visit Diagnoses Diagnosis Candiduria- Primary Megan glabrata infection Candidiasis of unspecified site documented in this encounter Administered Medications Inactive Administered Medications - up to 3 most recent administrations Medication Order MAR Action Action Date Dose Rate Site amphotericin B conventional (Fungizone) injection 15 mg 15 mg, Intravesical, Once, 1 dose, On Sat02/17/25 at 1100, RoutineIndications:Candiduria Given 02/17/2025 10:32 AM EDT 15 mg documented in this encounter Additional Health Concerns Assessment Noted Time PHQ-9 Depression Total Score: 24 023 12:02 PM EST A fall risk assessment has been complete d for the patient 02/11/2025 10:32 AM EDT A Body Mass Index follow-up plan has been documented for the patient 02/17/2025 10:33 AM EDT documented as of this encounter Care Teams Wrist Hemmer Relationship Specialty Start Date End Date Cate Frederick APRN [address] [place] [address] PCP - General 02/09/22 documented as of this encounter
--- OUTSIDE RECORDS SUMMARY | 2025-02-18 11:00 | XMS_ITS | Encounter Summary ---
Author Organization [facility] Address [address] [place] [address] Care Team Providers Care Marketing Strategy Analyst Name Role Phone Cate Frederick APRN Primary Care Provider Reason for Visit * Reason Comments Bladder Instillation Encounter Details Date Type Department Care Team (Latest Contact Info) Description 02/18/2025 11:00 AM EDT Procedure Visit [place] [facility] Urology [address] [place] [address] Chelsea Cole LPN [facility] Megan glabrata infection (Primary [...] Cross APRN - 02/18/2025 11:00 AM EDT [facility]rology Clinic Note 02/18/25 CC: No [...] Trace (A) Negative mg/dL POCT Urine Specific [place] 1.025 1.005 - 1.030 POCT Urine Blood [...] Ketones Negative Negative mg/dL POCT Urine Specific [place] >=1.030 1.005 - 1.030 POCT Urine Blood [...] Trace (A) Negative mg/dL POCT Urine Specific [place] 1.025 1.005 - 1.030 POCT Urine Blood [...] Description 04/21/2025 2:20 PM EDT Office Visit [facility] Urology [address] [place] [address] Marylou Laughlin MD [address] [place] [address] documented as of this encounter Results * (ABNORMAL) Urinalysis, Microscopic (02/23/2025 1:48 PM EDT) RBC, Urine 4 - 10(A) 0 to 3 /HPF LAB URINALYSIS - AUTOMATED METHOD 02/23/2025 6:[address] [facility] WBC, Urine >50(A) 0 to 5 /HPF LAB URINALYSIS - AUTOMATED METHOD 02/23/2025 6:[address] [facility] Squamous Epithelial Cells 0 - 2 0 to 5 /HPF LAB URINALYSIS - AUTOMATED METHOD 02/23/2025 6:[address] [facility] Hyaline Casts 0 - 2 0 to 5 /LPF LAB URINALYSIS - AUTOMATED METHOD 02/23/2025 6:[address] [facility] Bacteria, Urine Negative Negative LAB URINALYSIS - AUTOMATED METHOD 02/23/2025 6:51 PM EDT [facility] Urine Urine specimen obtained by clean catch procedure / Unknown Non-blood Collection / Unknown 02/23/2025 1:48 PM EDT 02/23/2025 4:41 PM EDT us Mary Cross APRN LAB URINE ORDERABLES Final Result Performing Organization Address City/[facility]/ZIP Co de Phone Number [facility] [address] [place] [address] * (ABNORMAL) Fungal Culture, Routine (02/23/2025 1:48 PM EDT) Culture Heavy Growth Megan glabrata(A) 03/03/2025 9:[address] [facility] Comment: This isolate has been identified using the FDA Approved [employer] [place] System Edited result: Previously reported as Yeast on 02/26/2025 at 0938 EDT. Urine Urine specimen obtained by clean catch procedure / Unknown Non-blood Collection / Unknown 02/23/2025 1:48 PM EDT 02/23/2025 4:41 PM EDT us Mary Cross APRN LAB MICROBIOLOGY - GENERAL ORDERABLES Final Result Performing Organization Address [facility] Co de Phone Number [facility] [address] [place] [address] * Urine Culture (02/23/2025 1:48 PM EDT) Culture No growth at day 1 02/25/2025 11:[address] [facility] Urine Urine specimen obtained by clean catch procedure / Unknown Non-blood Collection / Unknown 02/23/2025 1:48 PM EDT 02/23/2025 4:41 PM EDT us Mary Cross APRN LAB MICROBIOLOGY - GENERAL ORDERABLES Final Result Performing Organization Address City/[facility]/ZIP Co de Phone Number [facility] [address] [place] [address] documented in this encounter Visit Diagnoses Diagnosis [...] documented as of this encounter Care Teams Marketing Strategy Analyst Relationship Specialty Start Date End Date Cate Frederick APRN [address] [place] [address] PCP - General 02/09/22 documented as of this encounter
--- OUTSIDE RECORDS SUMMARY | 2025-02-22 13:15 | XMS_ITS | Encounter Summary ---
Author Organization [facility] Address [address] [place] [address] Care Team Providers Care Station Operator Name Role Phone Cate Frederick APRN Primary Care Provider [phone] Reason for Visit * Reason Comments Bladder Instillation Encounter Details Date Type Department Care Team (Latest Contact Info) Description 02/22/2025 1:15 PM EDT Clinical Support [facility] Urology [address] [place] [phone] [place] Cole LPN [facility] Radha glabrata infection (Primary Dx) Social History Tobacco [...] Sign Reading Time Taken Comments Blood Pressure 101/46 02/22/2025 1:30 PM EDT Pulse 76 02/22/2025 1:30 PM EDT Temperature - - Respiratory Rate - - Oxygen Saturation - - Inhaled Oxygen Concentration - - Weight - - Height - - Body Mass Index - - documented in this encounter Miscellaneous Notes * Progress Notes - [place] Cole LPN - 02/22/2025 1:15 PM EDT Patient ID: Claribel Skelton is a 84 y.o. female. Patient presented to clinic for routine bladder instillation. Procedures Bladder catheterization and instillation procedure was discussed with the patient including benefits and risks for infection, bleeding and allergic reaction. Verbal consent from the patient was given. Patient was then prepped using betadine swabs x3 and bladder catheterization per urethra was performed using an 10 fr hydrophilic catheter using sterile technique. 80 ml of clear urine was obtained via catheter. Then ampho B instillation was slowly instilled. Patient tolerated procedure well with no complaints. Plan: 1. Patient advised to keep scheduled follow-up appts with provider. 2. Patient advised to call the office with any signs or symptoms of UTI, abnormal bleeding, or other concerns. 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 documented in this encounter Administered Medications Inactive Administered Medications - up to 3 most recent administrations Medication Order MAR Action Action Date Dose Rate Site amphotericin B conventional (Fungizone) injection 15 mg 15 mg, Intravesical, Daily, 7 doses, First dose (after last modification) on Sat02/17/25 at 0900, Last dose on Sat02/23/25 at 0900, RoutineIndications:Radha glabrata infection,Candiduria Given 02/23/2025 1:58 PM EDT 15 mg Given 02/22/2025 1:52 PM EDT 15 mg Given 02/18/2025 11:00 AM EDT 15 mg lidocaine (Xylocaine) 2 % injection 300 mg 300 mg (15 mL), Intravesical, Once, 1 dose, On Sat02/22/25 at 1445, RoutineIndications:Radha glabrata infection Given 02/22/2025 1:52 PM EDT 15 mL documented in this encounter Additional Health Concerns Assessment Noted Time PHQ-9 Depression Total Score: 24 023 12:02 PM EST A fall risk assessment has been complete d for the patient 02/11/2025 10:32 AM EDT A Body Mass Index follow-up plan has been documented for the patient 02/22/2025 1:55 PM EDT documented as of this encounter Care Teams Station Operator Relationship Specialty Start Date End Date Cate Frederick, MIGUEL [address] [place] [address] PCP - General 02/09/22 documented as of this encounter
--- OUTSIDE RECORDS SUMMARY | 2025-02-23 13:15 | XMS_ITS | Encounter Summary ---
Author Organization [facility] Address [address] [place] [address] Care Team Providers Care Glaze Handler Name Role Phone Cate Frederick APRN Primary Care Provider Reason for Visit * Reason Comments Bladder Instillation Encounter Details Date Type Department Care Team (Latest Contact Info) Description 02/23/2025 1:15 PM EDT Clinical Support [facility] Urology [address] [place] [phone] [place] Cole LPN [facility] Radha glabrata infection (Primary Dx) Social History Tobacco Use Types Packs/Day Years Used Date Smoking Tobacco: Every Day Cigarettes 0.5 70.2 Started: 01/23/1955 Smokeless Tobacco: Never Alcohol Use Standard Drinks/Week Comments Never 0 (1 standard drink = 0.6 oz pur e alcohol) PHQ-2 Answer Date Recorded Patient Health Questionnaire-2 Score 0 02/24/2025 PHQ-9 Answer Date Recorded Patient Health Questionnaire-9 [...] Sign Reading Time Taken Comments Blood Pressure 134/63 02/23/2025 1:34 PM EDT Pulse - - Temperature - - Respiratory Rate - - Oxygen Saturation - - Inhaled Oxygen Concentration - - Weight - - Height - - Body Mass Index - - documented in this encounter Miscellaneous Notes * Progress Notes - [place] Cole LPN - 02/23/2025 1:15 PM EDT Patient ID: Claribel Skelton is a 84 y.o. female. Patient presented to clinic today for her routine bladder instillation and cath culture. Procedures Bladder catheterization and instillation procedure was discussed with the patient including benefits and risks for infection, bleeding and allergic reaction. Verbal consent from the patient was given. Patient was then prepped using betadine swabs x3 and bladder catheterization per urethra was performed using an 8fr hydrophilic catheter using sterile technique. 100 ml of clear urine was obtained via catheter. Then 3 mL of Ampho B and 15 mL of 2% preservative free lidocaine was slowly instilled. Patient tolerated procedure well with no complaints. Plan: 1.Collected specimen sent for urine culture, ua, micro. Patient advised clinic will follow-up in 72hours if results require treatment. 2. Patient advised to keep scheduled follow-up appts with provider. 3. Patietn advised to call the office with any signs or symptoms of UTI, abnormal bleeding, or other concerns. documented in this encounter Plan of Treatment Upcoming Encounters Date Type Department Care Team (Late st Contact Info) Description 04/21/2025 2:20 PM EDT Office Visit [facility] Urology [address] [place] [address] Marylou Laughlin MD [address] [place] [address] documented as of this encounter Procedures Procedure Name Priority Date/Time Associated Diagnosis Comments URINALYSIS, MICROSCOPIC Routine 02/23/2025 1:48 PM EDT Radha glabrata infection FUNGAL CULTURE, ROUTINE Routine 02/23/2025 1:48 PM EDT Radha glabrata infection URINE CULTURE Routine 02/23/2025 1:48 PM EDT Radha glabrata infection documented in this encounter Results * Urine Culture (02/23/2025 1:48 PM EDT) Culture No growth at day 1 02/25/2025 11:16 AM EDT [facility] Urine Urine specimen obtained by clean catch procedure / Unknown Non-blood Collection / Unknown 02/23/2025 1:48 PM EDT 02/23/2025 4:41 PM EDT us Mary Cross APRN LAB MICROBIOLOGY - GENERAL ORDERABLES Final Result Performing Organization Address [facility] Co de Phone Number [facility] [address] [place] [address] * (ABNORMAL) Fungal Culture, Routine (02/23/2025 1:48 PM EDT) Culture Heavy Growth Radha glabrata(A) 03/03/2025 9:36 AM EDT [facility] Comment: This isolate has been identified using the FDA Approved MALDI CSS99yper CA System Edited result: Previously reported as Yeast on 02/26/2025 at 0938 EDT. Urine Urine specimen obtained by clean catch procedure / Unknown Non-blood Collection / Unknown 02/23/2025 1:48 PM EDT 02/23/2025 4:41 PM EDT us Mary Cross APRN LAB MICROBIOLOGY - GENERAL ORDERABLES Final Result Performing Organization Address City/[facility]/ZIP Co de Phone Number [facility] [address] [place] [address] * (ABNORMAL) Urinalysis, Microscopic (02/23/2025 1:48 PM EDT) RBC, Urine 4 - 10(A) 0 to 3 /HPF LAB URINALYSIS - AUTOMATED METHOD 02/23/2025 6:51 PM EDT [facility] WBC, Urine >50(A) 0 to 5 /HPF LAB URINALYSIS - AUTOMATED METHOD 02/23/2025 6:51 PM EDT [facility] Squamous Epithelial Cells 0 - 2 0 to 5 /HPF LAB URINALYSIS - AUTOMATED METHOD 02/23/2025 6:51 PM EDT [facility] Hyaline Casts 0 - 2 0 to 5 /LPF LAB URINALYSIS - AUTOMATED METHOD 02/23/2025 6:51 PM EDT [facility] Bacteria, Urine Negative Negative LAB URINALYSIS - AUTOMATED METHOD 02/23/2025 6:51 PM EDT [facility] Urine Urine specimen obtained by clean catch procedure / Unknown Non-blood Collection / Unknown 02/23/2025 1:48 PM EDT 02/23/2025 4:41 PM EDT Mary Cross APRN LAB URINE ORDERABLES Final Result Performing Organization Address City/State/[facility] Co de Phone Number [facility] [address] [place] [address] documented in this encounter Visit Diagnoses Diagnosis Radha glabrata [...] (15 mL), Other, Once, 1 dose, On Sat02/23/25 at 1500, RoutineIndications:Radha glabrata infection Given 02/23/2025 2:00 PM EDT 300 mg documented in this encounter Additional Health Concerns Assessment Noted Time PHQ-9 Depression Total Score: 24 07/17/ 023 12:02 PM EST A fall risk assessment has been complete d for the patient 02/11/2025 10:32 AM EDT A Body Mass Index follow-up plan has been documented for the patient 02/23/2025 2:01 PM EDT documented as of this encounter Care Teams Glaze Handler Relationship Specialty Start Date End Date Cate Frederick APRN [address] [place] [address] PCP - General 02/09/22 documented as of this encounter
--- OUTSIDE RECORDS SUMMARY | 2025-02-24 13:30 | XMS_ITS | Encounter Summary ---
Author Organization [facility] Address [address] [place] [address] Care Team Providers Care Carbon Sequestration Plant Manager Name Role Phone Cate Ferderick APRN Primary Care Provider [phone] Reason for Visit * Reason Comments Bladder Instillation Encounter Details Date Type Department Care Team (Latest Contact Info) Description 02/24/2025 1:30 PM EDT Clinical Support [facility]rology [address], [address] [place] [phone] Germaine Francisco LPN [facility] Recurrent UTI (Primary Dx) [...] clinic with any questions or concerns at [phone] documented in this encounter Plan of Treatment Upcoming Encounters Date Type Department Care Team (Late st Contact Info) Description 04/21/2025 2:20 PM EDT Office Visit [facility]rology [address], [address] [place] [address] Marylou Laughlin MD [address] [place] [address] documented as of this encounter [...] documented as of this encounter Care Teams Carbon Sequestration Plant Manager Relationship Specialty Start Date End Date Cate Frederick APRN [address] [place] [address] PCP - General 02/09/22 documented as of this encounter
--- OUTSIDE RECORDS SUMMARY | 2025-02-25 13:15 | XMS_ITS | Encounter Summary ---
Author Organization [facility] Address [address] [place] [address] Care Team Providers Care Practice Nurse Name Role Phone Cate Frederick APRN Primary Care Provider [phone] Reason for Visit * Reason Comments Bladder Instillation Encounter Details Date Type Department Care Team (Late st Contact Info) Description 02/25/2025 1:15 PM EDT Clinical Support [place] [facility] [address], [address] [place] [address] Marek Bello [facility] Candiduria (Primary Dx); Radha glabrata infection Social History Tobacco Use Types [...] Sign Reading Time Taken Comments Blood Pressure 142/84 02/25/2025 1:21 PM EDT Pulse 84 02/25/2025 1:21 PM EDT Temperature - - Respiratory Rate - - Oxygen Saturation - - Inhaled Oxygen Concentration - - Weight 62.1 kg (137 lb) 02/25/2025 1:21 PM EDT Height 167.6 cm (5' 6 ) 02/25/2025 1:21 PM EDT Body Mass Index 22.11 02/25/2025 1:21 PM EDT documented in this encounter Miscellaneous Notes * Progress Notes - Marek Bello - 02/25/2025 1:15 PM EDT Ms. Claribel Skelton is a 84 year old female with a history of RUTIs. She presents today for routine bladder instillation. She is accompanied with her daughter. Ms. Skelton has not notice any changes in her symptoms and stated that her frequency has gotten worse. She also stated it still hurts when she urinates and very little comes out. Patient stated it is also painful to sit and they feel a shooting pain that radiates upward. Bladder catheterization and instillation procedure was discussed with the patient including benefits and risks for infection, bleeding and allergic reaction. Verbal consent from the patient was given. Patient was then prepped using betadine swabs x3. Initial bladder catheterization was unsuccessful. However, Chelsea PONCE, was successful with bladder catheterization per urethra using an 8fr hydrophilic catheter using sterile technique. 20 ml of yellow urine was obtained via catheter. Then 3 ml Ampho B + 15 ml 2 % preservative free Lidocaine was slowly instilled. Patient tolerated procedure well with no complaints. Upon doing the instillation, I noticed some slight irritation on the out side of the labia and inside. She stated she had been instructed to pat with wet wipes but still felt irritated. Patient is concerned that they are nearing the end of their instillations and, with the exception of clearer urine, feel about the same. Advised patient to call with any new or worsening symptoms and will send my note to be reviewed by the provider. Plan: Continue as scheduled for daily instillation. Call the clinic with any questions or concerns at [phone] documented in this encounter Plan of Treatment Upcoming Encounters Date Type Department Care Team (Late st Contact Info) Description 04/21/2025 2:20 PM EDT Office Visit [place] [facility] [address], [address] [place] [address] Marylou Laughlin MD [address] [place] [address] documented as of this encounter Visit Diagnoses Diagnosis Candiduria- Primary Radha glabrata infection Candidiasis of unspecified site documented in this encounter Administered Medications Inactive Administered Medications - up to 3 most recent administrations Medication Order MAR Action Action Date Dose Rate Site amphotericin B conventional (Fungizone) injection 15 mg 15 mg, Intravesical, Once, 1 dose, On [place] 02/25/25 at 1400, RoutineIndications:Candiduria, Radha glabrata infection Given by Other 02/25/2025 3:54 PM EDT 15 mg lidocaine (Xylocaine) 2 % injection 300 mg 300 mg (15 mL), Intravesical, Once, 1 dose, On [place]iley 02/25/25 at 1645, TodayIndications:Candiduria,Ca ndida glabrata infection Given 02/25/2025 3:56 PM EDT 300 mg documented in this encounter Additional Health Concerns Assessment Noted Time PHQ-9 Depression Total Score: 24 023 12:02 PM EST A fall risk assessment has been complete d for the patient 02/24/2025 2:21 PM EDT A Body Mass Index follow-up plan has been documented for the patient 02/23/2025 2:01 PM EDT documented as of this encounter Care Teams Practice Nurse Relationship Specialty Start Date End Date Cate Frederick APRN [address] [place] [address] PCP - General 02/09/22 documented as of this encounter
--- OUTSIDE RECORDS SUMMARY | 2025-02-26 13:15 | XMS_ITS | Encounter Summary ---
Author Organization [facility] Address [address] [place] [address] Care Team Providers Care Health Insurance Adjuster Name Role Phone Cate Frederick APRN Primary Care Provider Reason for Visit * Reason Comments Bladder Instillation Encounter Details Date Type Department Care Team (Latest Contact Info) Description 02/26/2025 1:15 PM EDT Clinical Support [place] [facility] [address], [address] [place] [phone] Chelsea Cole LPN [facility] Candiduria (Primary Dx) Social [...] Description 04/21/2025 2:20 PM EDT Office Visit [facility] [address], [address] [place] [address] Marylou Laughlin MD [address] [place] [address] documented as of this encounter Visit Diagnoses [...] documented as of this encounter Care Teams Health Insurance Adjuster Relationship Specialty Start Date End Date Cate Frederick APRN [address] [place] [address] PCP - General 02/09/22 documented as of this encounter
--- OUTSIDE RECORDS SUMMARY | 2025-04-08 14:47 | XMS_ITS | Encounter Summary ---
Author Organization [facility] Address [address] [place] [address] Care Team Providers Care Hedis Manager Name Role Phone Cate Frederick APRN Primary Care Provider Encounter Details Date Type Department Care Team (Late st Contact Info) Description 02/15/2025 Results Follow-Up [facility] [address], [address] [place] [address] Mary Cross APRN [address] [place] [address] Social History Tobacco Use Types [...] Description 04/21/2025 2:20 PM EDT Office Visit [facility] [address], [address] [place] [address] Maryluo Laughlin MD [address] [place] [address] documented as of this encounter [...] documented as of this encounter Care Teams Hedis Manager Relationship Specialty Start Date End Date Cate Frederick, INTERNAL MEDICINE NURSE PRACTITIONER [address] [place] [address] PCP - General 02/09/22 documented as of this encounter
--- OUTSIDE RECORDS SUMMARY | 2025-04-08 14:47 | XMS_ITS | Encounter Summary ---
Author Organization [facility] Address [address] [place] [address] Care Team Providers Care Bulkhead Carpenter Name Role Phone Cate Frederick APRN Primary [...] Office Visit [facility] [address], 2[address] [place] [address] Marylou Laughlin MD [address] [place] [address] documented as of this encounter [...] documented as of this encounter Care Teams Bulkhead Carpenter Relationship Specialty Start Date End Date Cate Frederick, MIGUEL [address] [place] [address] PCP - General 02/09/22 documented as of this encounter
--- OUTSIDE RECORDS SUMMARY | 2025-04-08 14:47 | XMS_ITS | Encounter Summary ---
Author Organization [facility] Address [address] [place] [address] Care Team Providers Care Livestock Producer Name Role Phone Cate Frederick APRN Primary Care Provider [phone] Reason for Visit * Reason Onset Date Comments HCN - Patient Message 02/02/[address] Encounter Details Date Type Department Care Team (Late st Contact Info) Description 02/02/2025 Telephone [facility] [address], [address]nd [place] [address] Mary Cross APRN [address] [place] [address] HCN - Patient Message (Call [...] patient earlier on 02/18/2025 at 11:00 am. [facility]. KJa * Telephone Encounter - Phuong Brooks - 02/02/2025 3:46 PM EDT Void--pt has been scheduled with MR. Does not need rec for IC * Telephone Encounter - Gracia Valadez - 02/02/2025 12:00 PM EDT Patient Phone Message Reason for Call: [facility] (PCP) requesting a return call to discuss recommendations on where pt could be seenfor Interstitial Cystitis Best contact number and optimal time of day to reach caller: [phone] Kaci Note: Please do not reply to [...] [facility] [address], [address] [place] [address] Marylou Laughlin MD [address] [place] [address] documented as of this encounter [...] documented as of this encounter Care Teams Livestock Producer Relationship Specialty Start Date End Date Cate Frederick APRN [address] [place] [address] PCP - General 02/09/22 documented as of this encounter
--- OUTSIDE RECORDS SUMMARY | 2025-04-08 14:47 | XMS_ITS | Clinical Summary ---
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 11/12/2022 Dyspnea on [...] history exists Medical Devices Implanted Type Area Engineering Technology Instructor Device Identifier Shelf Expiration Date Model / Serial / Lot Bone Filler Void Cerament 10ml - [id number] Implanted:Qty: 1 on 10/30/2022 by Jg Natarajan Jr., MD at [facility] Implant Right: Hand BONE SUPPORT 03/18/2025 [id number] / / [id number] Plt Geminus Nrw 3h Rt - [id number] Implanted:Qty: 1 on 10/30/2022 by Jg Natarajan Jr., MD at [facility] Implant Right: Hand SKELETAL DYNAMICS [id number] / / Scrw Geminus Pa Nl Ti 3.5x12mm - [id number] Implanted:Qty: 1 on 10/30/2022 by Jg Natarajan Jr., MD at [facility] Implant Right: Hand SKELETAL DYNAMICS [id number] / / Scrw Geminus Pa Nl 3ti .5x13mm - [id number] Implanted:Qty: 1 on 10/30/2022 by Jg Natarajan Jr., MD at [facility] Implant Right: Hand SKELETAL DYNAMICS [id number] / / Peg Volr Geminus Smoth Lk Ti 2x16mm - [id number] Implanted:Qty: 1 on 10/30/2022 by Jg Natarajan Jr., MD at [facility] Implant Right: Hand SKELETAL DYNAMICS [id number] / / Peg Volr Geminus Smoth Lk Ti 2x18mm - [id number] Implanted:Qty: 1 on 10/30/2022 by Jg Natarajan Jr., MD at [facility] Implant Right: Hand SKELETAL DYNAMICS [id number] / / Peg Volr Geminus Smoth Lk Ti 2x21mm - [id number] Implanted:Qty: 1 on 10/30/2022 by Jg Natarajan Jr., MD at [facility] Implant Right: Hand SKELETAL DYNAMICS [id number] / / Peg Volr Geminus Smoth Lk Ti 2x20mm - [id number] Implanted:Qty: 1 on 10/30/2022 by Jg Natarajan Jr., MD at [facility] Implant Right: Hand SKELETAL DYNAMICS [id number] / / Peg Volr Geminus Smoth Lk Ti 2x17mm - [id number] Implanted:Qty: 1 on 10/30/2022 by Jg Natarajan Jr., MD at [facility] Implant Right: Hand SKELETAL DYNAMICS [id number] / / Scrw Morgan Geminus Lk Ti 3.5x12mm - [id number] Implanted:Qty: 1 on 10/30/2022 by Jg Natarajan Jr., MD at [facility] Implant Right: Hand SKELETAL DYNAMICS [id number] / / Peg Volr Geminus Smoth Lk Ti 2x19mm - [id number] Implanted:Qty: 1 on 10/30/2022 by Jg Natarajan Jr., MD at [facility] Implant Right: Hand SKELETAL DYNAMICS [id number] / / Explanted Type Area Engineering Technology Instructor Device Identifier Shelf Expiration Date Model / Serial / Lot Kwire Std Tp [id number] - [id number] Explanted:Qty: 2 on 10/30/2022 at [facility] Implant Right: Hand SKELETAL DYNAMICS [id number] / / Kwire Std/Tp .[id number] - [id number] Explanted:Qty: 2 on 10/30/2022 at [facility] Implant Right: Hand SKELETAL DYNAMICS [id number] / / Procedures Procedure Name Priority Date/Time Associated Diagnosis Comments HEMOGLOBIN A1C Routine 01/19/2023 5:29 AM EDT from Last 3 Months or Most Recently Relevant to Health Maintenance Results * (ABNORMAL) Hemoglobin A1c (01/19/2023 5:29 AM EDT) Hemoglobin A1C 5.70(H) 4.80 - 5.60 % 01/19/2023 9:49 AM EDT [facility] Blood Venipuncture / Unknown 01/19/2023 5:29 AM EDT 01/19/2023 7:07 AM EDT Narrative [facility] - 01/19/2023 9:49 AM EDT Hemoglobin A1C Ranges: Increased Risk for Diabetes 5.7% to 6.4% Diabetes >= 6.5% Diabetic Goal < 7.0% us Betzaida Musa SHIP [facility]NER LAB BLOOD ORDERABLES Final Result [facility]
[address] [phone] from Last 3 Months or Most Recently [...] Of Support Discussed With: Patient Care Teams Cartographic Designer Relationship Specialty Start Date End Date Cate Frederick APRN [address] [place] [address] PCP - General Nurse Practitioner 10/25/22
--- OUTSIDE RECORDS SUMMARY | 2025-04-08 14:47 | XMS_ITS | Encounter Summary ---
Author Organization [employer] ([place], [place], [place], [place]) Address [address] [place] [address] Care Team Providers Care Clerk Typist Name Role Phone Cate Frederick APRN Primary Care Provider [phone] Reason for Referral * Mammography (Routine) - New Request Specialty Diagnoses / Procedures Referred By Contac t Referred To Contact Diagnoses Other screening mammogram Procedures MM digital mammo screen with dayana bilateral Cate Frederick APRN [address] [place] [address] Phone: tel: fax: Referral ID Status Reason Start Date Expiration Date V isits Requested Visits Authorized [id number] New Request 06/19/2024 06/19/2025 1 1 Encounter Details Date Type Department Care Team (Late st Contact Info) Description 06/19/2024 Outside Orders [facility] Central Scheduling 1 [place] [address] Cate Frederick APRN [address] [place], [place] [id number] Other screening mammogram (Primary Dx) Social History [...] Date Esdras rded Speak language other than Eritrean at home Not on file 08/27/2023 Want help with school or training Not on file 08/27/2023 Substance Use Answer Date Recorded Used prescription meds for non-medical reasons N ot on file 08/27/2023 Used illegal drugs past 12 months Not on file 08/27/2023 Comments No Sex and Gender Information Value Date Recorded Sex Assigned at Female 10/03/2023 9:11 AM SENIOR DATASTAGE DEVELOPER Legal Sex Female 5:32 PM CDT Gender Identity Female 10/03/2023 9:11 AM SENIOR DATASTAGE DEVELOPER Sexual Orientation Not on file documented as [...] areas of focal mammographic concern. Cate Frederick PRIMARY CARE PEDIATRICIAN IMG MAMMOGRAPHY ORDERABLES F inal Result documented in this encounter Visit Diagnoses Diagnosis Other screening mammogram- Primary Other screening mammogram documented in this encounter Care Teams Clerk Typist Relationship Specialty Start Date End Date Cate Frederick, PRIMARY CARE PEDIATRICIAN [address] [place] [address] PCP - General Family Medicine 06/26/23 documented as of this encounter
--- OUTSIDE RECORDS SUMMARY | 2025-04-08 14:47 | XMS_ITS | Clinical Summary ---
Author Organization [employer] ([place]) Address [address] [place] [address] Care Team Providers Care Alarm Signal Operator Name Role Phone Cate Frederick APRN Primary Care Provider [phone] Allergies Active Allergy Reactions Criticality Noted Date [...] Date Esdras rded Speak language other than Chadian at home Not on file 08/27/2023 Want help with school or training Not on file 08/27/2023 Substance Use Answer Date Recorded Used prescription meds for non-medical reasons N ot on file 08/27/2023 Used illegal drugs past 12 months Not on file 08/27/2023 Comments No Sex and Gender Information Value Date Recorded Sex Assigned at Female 10/03/2023 9:11 AM GROUP EXERCISE INSTRUCTOR Legal Sex Female 5:32 PM CDT Gender Identity Female 10/03/2023 9:11 AM GROUP EXERCISE INSTRUCTOR Sexual Orientation Not on file Last Filed [...] 05/09/2020, 2017 Medical Devices Implanted Type Area Plating Engineer Device Identifier Shelf Expiration Date Model / Serial / Lot Iol Uv Clareon +20.5 [id number] - [id number] Implanted:Qty: 1 on 10/03/2023 by Ahmet Mohr MD at [facility] IMPLANTS Right: Eye JOJO 12/30/2024 [id number] / [id number] / Iol Uv Clareon +21.0 [id number] - [id number] Implanted:Qty: 1 on 10/24/2023 by Ahmet Mohr MD at [facility] IMPLANTS Left: Eye JOJO 04/02/2027 [id number] / [id number] / Stents Heart Description:X2 Insurance [place] [id number] [facility] Care Teams Alarm Signal Operator Relationship Specialty Start Date End Date Cate Frederick, AFTER SCHOOL COORDINATOR [address] [place] [phone] PCP - General Family Medicine 06/26/23
--- OUTSIDE RECORDS SUMMARY | 2025-04-08 14:47 | XMS_ITS | Encounter Summary ---
Author Organization [employer] ([place], [place], [place], [place]) Address [address] [place] [address] Care Team Providers Care Director Transition Name Role Phone Cate Frederick APRN Primary Care Provider [phone] Reason for Referral * Mammography (Routine) - Closed Specialty Diagnoses / Procedures Referred By Contac t Referred To Contact Diagnoses Visit for screening mammogram Procedures MM digital mammo screen bilateral Cate Frederick APRN [address] [place] [address] Phone: tel: fax: Referral ID Status Reason Start Date Expiration Date Visits Re quested Visits Authorized [id number] Closed 06/06/2023 12/03/2023 1 1 Encounter Details Date Type Department Care Team (Late st Contact Info) Description 06/06/2023 Outside Orders [facility] Central Scheduling 1 [place] [address] Cate Frederick APRN [address] [place] [id number] Visit for screening mammogram (Primary Dx) Social [...] Date Esdras rded Speak language other than Georgian at home Not on file 08/27/2023 Want help with school or training Not on file 08/27/2023 Substance Use Answer Date Recorded Used prescription meds for non-medical reasons N ot on file 08/27/2023 Used illegal drugs past 12 months Not on file 08/27/2023 Comments Unknown Sex and Gender Information Value Date Recorded Sex Assigned at Female 10/03/2023 9:11 AM MAPPER Legal Sex Female 5:32 PM CDT Gender Identity Female 10/03/2023 9:11 AM MAPPER Sexual Orientation Not on file COVID-19 Exposure [...] the next mammogram. At our facility, a [place] marker is positioned over a visible skin [...] family history of breast cancer COMPARISON STUDY: [facility] FINDINGS: Craniocaudal and mediolateral oblique images [...] mammogram documented in this encounter Care Teams Director Transition Relationship Specialty Start Date End Date Cate Frederick, BILINGUAL ADMINISTRATIVE ASSISTANT [address] [place] [address] PCP - General Family Medicine 06/26/23 documented as of this encounter
--- OUTSIDE RECORDS SUMMARY | 2025-04-08 14:47 | XMS_ITS | Encounter Summary ---
Author Organization [employer] ([place], [place], [place], [place]) Address [address] [place] [address] Care Team Providers Care Bar Manager Name Role Phone Cate Frederick APRN Primary Care Provider [phone] Reason for Referral * Mammography (Routine) - Closed Specialty Diagnoses / Procedures Referred By Contac t Referred To Contact Diagnoses Visit for screening mammogram Procedures MM digital mammo screen bilateral Renee Cortés APRN [address] [address] Phone: tel: fax: Referral ID Status Reason Start Date Expiration Date Visits Re quested Visits Authorized [id number] Closed 05/06/2022 11/02/2022 1 1 Encounter Details Date Type Department Care Team (Late st Contact Info) Description 05/06/2022 Outside Orders [facility] Central Scheduling 1 [place] [id number] Renee Cortés COOK MAYONNAISE [address] [address] Visit for screening mammogram (Primary Dx) Social History Tobacco Use Types Packs/Day Years Used Date Smoking Tobacco: Never Assessed Comments Unknown Sex and Gender Information Value Date Recorded Sex Assigned at Female 10/03/2023 9:11 AM HYDROELECTRIC STATION OPERATOR Legal Sex Female 5:32 PM CDT Gender Identity Female 10/03/2023 9:11 AM HYDROELECTRIC STATION OPERATOR Sexual Orientation Not on file documented as [...] distortion or clustered microcalcifications. us Renee Cortés COOK MAYONNAISE IMG MAMMOGRAPHY ORDERABLES Final Result documented in this encounter Visit Diagnoses Diagnosis Visit for screening mammogram- Primary Visit for screening mammogram documented in this encounter Care Teams Bar Manager Relationship Specialty Start Date End Date Cate Frederick, COOK MAYONNAISE [address] [place] [address] PCP - General Family Medicine 06/26/23 documented as of this encounter
--- OUTSIDE RECORDS SUMMARY | 2025-04-08 14:48 | XMS_ITS | Encounter Summary ---
Author Organization [facility] Address [address] [place] [address] Care Team Providers Care Recreation Attendant Name Role Phone Cate Frederick APRN Primary Care Provider [phone] Reason for Visit * Reason Onset Date Comments HCN - Patient Message 03/11/2025 Missed jennifer l Encounter Details Date Type Department Care Team (Late st Contact Info) Description 03/11/2025 Telephone [facility] [address], [address] [place] [address] Mary Cross, TRANSFORMER SHOP SUPERVISOR [address] [place] [address] HCN - Patient Message (Missed [...] optimal time of day to reach caller: [phone] Note: Please do not reply to this [...] Visit [facility] [address], [address] [place] [address] Marylou Laughlin MD [address] [place] [address] documented as of this encounter [...] documented as of this encounter Care Teams Recreation Attendant Relationship Specialty Start Date End Date Cate Frederick APRN [address] [place] [address] PCP - General 02/09/22 documented as of this encounter
--- OUTSIDE RECORDS SUMMARY | 2025-04-08 14:48 | XMS_ITS | Encounter Summary ---
Author Organization [facility] Address [address] [place] [address] Care Team Providers Care Plant Buyer Name Role Phone Cate Frederick APRN Primary Care Provider Encounter Details Date Type Department Care Team (Late st Contact Info) Description 02/16/2025 Orders Only [place] [facility] [address], [address] [place] [address] Mary Cross APRN [address] [place] [address] Radha glabrata infection (Primary Dx); [...] Office Visit [facility] [address], [address] [place] [address] Marylou Laughlin MD [address] [place] [address] documented as of this encounter [...] documented as of this encounter Care Teams Plant Buyer Relationship Specialty Start Date End Date Cate Frederick APRN [address] [place] [address] PCP - General 02/09/22 documented as of this encounter
--- OUTSIDE RECORDS SUMMARY | 2025-04-08 14:48 | XMS_ITS | Encounter Summary ---
Author Organization [facility] Address [address] [place] [address] Care Team Providers Care Harness Maker Name Role Phone Cate Frederick APRN Primary Care Provider [phone] Encounter Details Date Type Department Care Team [...] Office Visit [place] [facility] [address], [address] [place] [address] Marylou Laughlin MD [address] [place] [address] documented as of this encounter [...] documented as of this encounter Care Teams Harness Maker Relationship Specialty Start Date End Date Cate Frederick, MIGUEL [address] [place] [address] PCP - General 02/09/22 documented as of this encounter
--- OUTSIDE RECORDS SUMMARY | 2025-04-08 14:48 | XMS_ITS | Encounter Summary ---
Author Organization [facility] Address [address] [place] [address] Care Team Providers Care Property Accountant Name Role Phone Cate Frederick APRN Primary [...] Office Visit [place] [facility] [address], [address] [place] [address] Marylou Laughlin MD [address] [place] [address] documented as of this encounter [...] documented as of this encounter Care Teams Property Accountant Relationship Specialty Start Date End Date Cate Frederick, MIGUEL [address] [place] [address] PCP - General 02/09/22 documented as of this encounter
--- OUTSIDE RECORDS SUMMARY | 2025-04-08 14:48 | XMS_ITS | Encounter Summary ---
Author Organization [facility] Address [address] [place] [address] Care Team Providers Care Medical Reception Name Role Phone Cate Frederick APRN Primary Care Provider Encounter Details Date Type Department Care Team (Late st Contact Info) Description 03/05/[address] [facility] [address], [address] [place] [address] Dayana Tavera Social History Tobacco [...] Office Visit [place] [facility] [address], [address] [place] [address] Marylou Laughlin MD [address] [place] [address] documented as of this encounter [...] documented as of this encounter Care Teams Medical Reception Relationship Specialty Start Date End Date Cate Frederick APRN [address] [place] [address] PCP - General 02/09/22 documented as of this encounter
--- OUTSIDE RECORDS SUMMARY | 2025-04-08 14:48 | XMS_ITS | Encounter Summary ---
Author Organization [facility] Address [address] [place] [address] Care Team Providers Care Maple Products Maker Name Role Phone Cate Frederick APRN [...] Description 04/21/2025 2:20 PM EDT Office Visit [place] [facility] [address], [address] [place] [address] Marylou Laughlin MD [address] [place] [address] documented as of this encounter [...] documented as of this encounter Care Teams Maple Products Maker Relationship Specialty Start Date End Date Cate Frederick, MIGUEL [address] [place] [address] PCP - General 02/09/22 documented as of this encounter
--- OUTSIDE RECORDS SUMMARY | 2025-04-08 14:48 | XMS_ITS | Encounter Summary ---
Author Organization [facility] Address [address] [place] [address] Care Team Providers Care Steel Molder Name Role Phone Cate Frederick APRN Primary [...] Office Visit [place] [facility] [address], [address] [place] [address] Marylou Laughlin MD [address] [place] [address] documented as of this encounter [...] documented as of this encounter Care Teams Steel Molder Relationship Specialty Start Date End Date Cate Frederick, MIGUEL [address] [place] [address] PCP - General 02/09/22 documented as of this encounter
--- OUTSIDE RECORDS SUMMARY | 2025-04-08 14:48 | XMS_ITS | Encounter Summary ---
Author Organization [facility] Address [address] [place] [address] Care Team Providers Care Press Operator Carbon Blocks Name Role Phone Cate Frederick APRN Primary Care Provider [phone] Encounter Details Date Type Department Care Team (Late st Contact Info) Description 03/01/2025 Results [facility]-Up [place] [facility] [address], [address] [place] [address] Soha Gomez APRN, DNP [address] [place] [address] Social History Tobacco Use Types [...] Office Visit [facility] [address], [address] [place] [address] Marylou Laughlin MD [address] [place] [address] documented as of this encounter [...] documented as of this encounter Care Teams Press Operator Carbon Blocks Relationship Specialty Start Date End Date Cate Frederick, MIGUEL [address] [place] [address] PCP - General 02/09/22 documented as of this encounter
--- OUTSIDE RECORDS SUMMARY | 2025-04-08 14:48 | XMS_ITS | Clinical Summary ---
Author Organization [facility] Address [address] [place] [address] Care Team Providers Care Computer Consultant Name Role Phone Cate Frederick APRN [...] Department Care Team Description 03/12/2025 Orders Only [facility] [address], [address]nd [place] [address] Mary Cross APRN Candiduria (Primary Dx); Radha glabrata infection 03/11/2025 Telephone [facility] [address], [address]nd [place] [address] Mary Cross APRN HCN - Patient Message (Missed call ) 03/09/2025 Telephone [facility] [address] [facility] [place] [address] Mary Cross APRN HCN Clinical Concern/Question 03/05/2025 Telephone [facility] [address], [facility] [place] [address] Dayana Tavera 03/01/2025 Results Follow-Up [facility] [address], [facility] [place] [address] Soha Gomez APRN, DNP 02/26/2025 1:15 PM EDT Clinical Support [facility] [address], [facility] [place] [address] Chelsea Cole LPN Candiduria (Primary Dx) 02/26/2025 Travel 02/25/2025 1:15 PM EDT Clinical Support [facility] [address], [facility] [place] [address] Marek Bello Candiduria (Primary Dx); Radha glabrata infection 02/25/2025 Travel 02/24/2025 1:30 PM EDT Clinical Support [facility] [address], [facility] [place] [address] Germaine Francisco LPN Recurrent UTI (Primary Dx) 02/24/2025 Travel 02/23/2025 1:15 PM EDT Clinical Support [facility] [address], [facility] Floor [facility] [place] [address] Chelsea Cole LPN Radha glabrata infection (Primary Dx) 02/23/2025 Travel 02/22/2025 1:15 PM EDT Clinical Support [facility] [address], [facility] [place] [address] Chelsea Cole LPN Radha glabrata infection (Primary Dx) 02/22/2025 Travel 02/18/2025 11:00 AM EDT Procedure Visit [facility] [address], [address]nd [place] [address] Chelsea Cole LPN Radha glabrata infection (Primary Dx) 02/18/2025 Travel 02/17/2025 9:40 AM EDT Procedure Visit [facility] [address], [facility] [place] [address] Mary Cross APRN Candiduria (Primary Dx); Radha glabrata infection 02/17/2025 Travel 02/16/2025 Orders Only [facility] [address] [place] [address], [facility] [place] [address] Mary Cross APRN Radha glabrata infection (Primary Dx); Candiduria 02/15/2025 Results Follow-Up [facility] [address] [place] [address], [address] [place] [address] Mary Cross APRN 02/11/2025 10:20 AM EDT Office Visit [facility] [address] [place] [address], [facility] [place] [address] Mary Cross APRN Recurrent UTI (Primary Dx); Bladder pain; Chronic ulcerating interstitial cystitis 02/11/2025 Travel 02/02/2025 Telephone [facility] [address] [place] [address] Mary Cross APRN HCN - Patient [...] Office Visit [place] [facility] [address], [address] [place] [address] Marylou Laughlin MD [address] [place] [address] Health Maintenance Due Date Last Done Comments [facility]-Bone Density Scan 1940 [facility]-Medicare Annual Wellness (AWV) 1940 [facility]-Infant/Child/Adol SDOH Screenings 1940 [facility]- SDOH Screenings 1958 [facility]-Adult SDOH Screenings 1958 [facility]-DTaP,Tdap,and Td Vaccines (1 - Tdap) 1959 [facility]-Zoster Vaccines (1 of 2) 1990 [facility]-RSV Vaccine: 60+ Years or (1 - 1-dose 75+ series) 2015 [facility]-Pneumococcal Vaccine: 50+ Years (2 of 2 - PCV) 06/10/2020 06/10/2019 [id number] Vaccine (5 - season) 2024 03/29/2022, 04/27/2021, [...] - AUTOMATED METHOD 02/23/2025 6:51 PM EDT [facility] WBC, Urine >50(A) 0 to 5 /HPF LAB URINALYSIS - AUTOMATED METHOD 02/23/2025 6:51 PM EDT [facility] Squamous Epithelial Cells 0 - 2 0 to 5 /HPF LAB URINALYSIS - AUTOMATED METHOD 02/23/2025 6:51 PM EDT [facility] Hyaline Casts 0 - 2 0 to 5 /LPF LAB URINALYSIS - AUTOMATED METHOD 02/23/2025 6:51 PM EDT [facility] Bacteria, Urine Negative Negative LAB URINALYSIS - AUTOMATED METHOD 02/23/2025 6:51 PM EDT [facility] Urine Urine specimen obtained by clean catch procedure / Unknown Non-blood Collection / Unknown 02/23/2025 1:48 PM EDT 02/23/2025 4:41 PM EDT us Mary Cross APRN LAB URINE ORDERABLES Final Result [facility] [address] [place] [address] * (ABNORMAL) Fungal Culture, Routine (02/23/2025 1:48 PM EDT) Only the most recent of2 resultswithin the time period is included. Culture Heavy Growth Radha glabrata(A) 03/03/2025 9:36 AM EDT [facility] Comment: This isolate has been identified using the FDA Approved Gingerder [place] System Edited result: Previously reported as Yeast on 02/26/2025 at 0938 EDT. Urine Urine specimen obtained by clean catch procedure / Unknown Non-blood Collection / Unknown 02/23/2025 1:48 PM EDT 02/23/2025 4:41 PM EDT us Mary Cross APRN LAB MICROBIOLOGY - GENERAL ORDERABLES Final Result Performing Organization Address City/[facility] [place] [address] * Urine Culture (02/23/2025 1:48 PM EDT) Only the most recent of2 resultswithin the time period is included. Culture No growth at day 1 02/25/2025 11:16 AM EDT [facility] Urine Urine specimen obtained by clean catch procedure / Unknown Non-blood Collection / Unknown 02/23/2025 1:48 PM EDT 02/23/2025 4:41 PM EDT us Mary Cross APRN LAB MICROBIOLOGY - GENERAL ORDERABLES Final Result Performing Organization Address City/[facility]/ZIP Co de Phone Number [facility] [address] [place] [address] * (ABNORMAL) POCT URINALYSIS DIPSTICK (02/17/2025 9:56 AM EDT) Only the most recent of2 resultswithin the time period is included. POCT Urine Color Yellow 02/17/2025 9:58 AM EDT [facility] UROLOGY POCT Urine Clarity Clear 02/17/2025 9:58 AM EDT [facility] UROLOGY POCT Urine Glucose >=1000(A) Negative mg/dL 02/17/2025 9:58 AM EDT [facility] UROLOGY POCT Urine Bilirubin Negative Negative mg/dL 02/17/2025 9:58 AM EDT [facility] UROLOGY POCT Urine Ketones Trace(A) Negative mg/dL 02/17/2025 9:58 AM EDT [facility] UROLOGY POCT Urine Specific Baltic 1.025 1.005 - 1.030 02/17/2025 9:58 AM EDT [facility] UROLOGY POCT Urine Blood Large(A) Negative 02/17/2025 9:58 AM EDT [facility] UROLOGY POCT pH, Urine 5.5 5.0 - 8.0 02/17/2025 9:58 AM EDT [facility] UROLOG POCT Protein, Urine >=300(A) Negative mg/dL 02/17/2025 9:58 AM EDT [facility] UROLOG POCT Urobilinogen, Urine 0.2 0.2, 1.0 EU/dL 02/17/2025 9:58 AM EDT [facility] UROLOG POCT Nitrite, Urine Negative Negative 02/17/2025 9:58 AM EDT [facility] UROLOGY POCT Urine Leukocyte Esterase Small(A) Negative 02/17/2025 9:58 AM EDT [facility] UROLOGY Urine 02/17/2025 9:56 AM EDT 02/17/2025 9:58 AM EDT us Mary Cross APRN LAB POINT OF CARE TEST DOCKED DEVICE UNSOLICITED RESULTS Final Result Performing Organization Address [facility]/State/[facility] de Phone Number [facility] [address], [place] * POC US Bladder Volume (02/11/2025 10:35 AM EDT) Urine, Volume 1 mL IMAGING Anatomical Region Laterality Modality Other us Mary Cross APRN IMG POINT OF CARE ULTRASOU ND Final Result from Last 3 Months Insurance [employer] MEDICARE Care Teams Computer Consultant Relationship Specialty Start Date End Date Cate Frederick, MIGUEL [address] [place] [address] PCP - General 02/09/22
--- OUTSIDE RECORDS SUMMARY | 2025-04-08 14:48 | XMS_ITS | Referral Summary ---
Author Organization [email or web address] ([place], [place], [place], [place]) Address [address] [place] [address] Care Team Providers Care Inclusion Special Educator Name Role Phone Cate Frederick APRN Primary Care Provider + [phone] Allergies Active Allergy Reactions Criticality Noted Date [...] Date Esdras rded Speak language other than [place]ar[place] at home Not on file 08/27/2023 Want help with school or training Not on file 08/27/2023 Substance Use Answer Date Recorded Used prescription meds for non-medical reasons N ot on file 08/27/2023 Used illegal drugs past 12 months Not on file 08/27/2023 Comments No Sex and Gender Information Value Date Recorded Sex Assigned at Female 10/03/2023 9:11 AM LOSS PREVENTION ASSOCIATE Legal Sex Female 5:32 PM CDT Gender Identity Female 10/03/2023 9:11 AM LOSS PREVENTION ASSOCIATE Sexual Orientation Not on file Last Filed [...] on file Medical Devices Implanted Type Area Dividing Machine Operator Helper Device Identifier Shelf Expiration Date Model / Serial / Lot Iol Uv Clareon +20.5 [id number] - [id number] Implanted:Qty: 1 on 10/03/2023 by Ahmet Mohr MD at [facility] IMPLANTS Right: Eye JOJO 12/30/2024 [id number] / [id number] / Iol Uv Clareon +21.0 [id number] - [id number] Implanted:Qty: 1 on 10/24/2023 by Ahmet Mohr MD at [facility] IMPLANTS Left: Eye JOJO 04/02/2027 [id number] / [id number] Heart Description:X2 Insurance [place] [address] [employer] [facility] AD[facility] Care Teams Inclusion Special Educator Relationship Specialty Start Date End Date Cate Frederick, TRACTOR TRAILER OPERATOR [address] [place] [address] PCP - General Family Medicine 06/26/23
--- OUTSIDE RECORDS SUMMARY | 2025-04-08 14:48 | XMS_ITS | Encounter Summary ---
Author Organization [facility] Address [address] [place] [address] Care Team Providers Care Desktop Engineer Name Role Phone Cate Frederick APRN Primary Care Provider [phone] Reason for Referral * Consultation (Routine) - Authorized Specialty Diagnoses / Procedures Referred By Ольга t Referred To Contact Infectious Diseases Diagnoses Candiduria Radha glabrata infection Mary Cross APRN [address] [address] Phone: tel: fax: Referral ID Status Reason Start Date Expiration Date Visits Requested Visits Authorized [id number] Authorized Specialty Services Required 03/12/2025 09/11/2026 1 1 Encounter Details Date Type Department Care Team (Late st Contact Info) Description 03/12/2025 Orders Only [facility] [address] [place] [address] Mary Cross APRN [id number] [place] [address] Candiduria (Primary Dx); Radha glabrata [...] - 03/12/2025 8:45 AM EDT Referred to [place] [facility] for no change in symptoms with ampho B instillations documented in this encounter Plan of Treatment Upcoming Encounters Date Type Department Care Team (Late st Contact Info) Description 04/21/2025 2:20 PM EDT Office Visit [facility] [address] [place] [address] Marylou Laughlin MD [address] [place] [address] Scheduled Referrals Name Type Priority Associated Diagnoses [...] documented as of this encounter Care Teams Desktop Engineer Relationship Specialty Start Date End Date Cate Frederick APRN [address] [place] [address] PCP - General 02/09/22 documented as of this encounter
--- OUTSIDE RECORDS SUMMARY | 2025-04-08 14:48 | XMS_ITS | Encounter Summary ---
Author Organization [facility] Address [address] [place] [address] Care Team Providers Care Director Cardiology Name Role Phone Cate Frederick APRN Primary [...] Office Visit [facility] [address] [place] [address] Marylou Laughlin MD [address] [place] [address] documented as of this encounter [...] as of this encounter Care Teams Director Cardiology Relationship Specialty Start Date End Date Cate Frederick, MIGUEL [address] [place] [address] PCP - General 02/09/22 documented as of this encounter
--- OUTSIDE RECORDS SUMMARY | 2025-04-08 14:48 | XMS_ITS | Encounter Summary ---
Author Organization [facility] Address [address] [place] [address] Care Team Providers Care Family Law Specialist Name Role Phone Cate Frederick APRN Primary Care Provider [phone] Encounter Details Date Type Department Care Team [...] Description 04/21/2025 2:20 PM EDT Office Visit [facility] [address], [address] [place] [address] Marylou Laughlin MD [address] [place] [address] documented as of this encounter [...] documented as of this encounter Care Teams Family Law Specialist Relationship Specialty Start Date End Date Cate Frederick, MIGUEL [address] [place] [address] PCP - General 02/09/22 documented as of this encounter
--- OUTSIDE RECORDS SUMMARY | 2025-04-08 14:48 | XMS_ITS | Encounter Summary ---
Author Organization [facility] Address [address] [place] [address] Care Team Providers Care Electrical Inspector Name Role Phone Caet Frederick APRN Primary Care Provider Reason for Visit * Reason Onset Date Comments HCN Clinical Concern/Question 03/09/2025 Encounter Details Date Type Department Care Team (Late st Contact Info) Description 03/09/2025 Telephone [facility] [address], [address] [place] [address] Mary Cross APRN [address] [place] [address] HCN Clinical Concern/Question Social History [...] with info. Thank you Best contact number: [phone] (mobile) Optimal time of day to reach caller: ANYTIME Additional comments/information from caller: None Note: Please do not reply to this message. Follow-up communication and further actions as a result of this message need to be communicated with the patient directly, if the patient is not active onMyChart. If the patient is active on MyChart, they will receive notification of the communication/outcome via [employer] documented in this encounter Plan of Treatment Upcoming Encounters Date Type Department Care Team (Late st Contact Info) Description 04/21/2025 2:20 PM EDT Office Visit [place] [facility] [address] [place] [address] Marylou Laughlin MD [address] [place] [address] documented as of this encounter [...] documented as of this encounter Care Teams Electrical Inspector Relationship Specialty Start Date End Date Cate Frederick, MIGUEL [address] [place] [address] PCP - General 02/09/22 documented as of this encounter
--- OUTSIDE RECORDS SUMMARY | 2025-04-08 14:48 | XMS_ITS | Encounter Summary ---
Author Organization [facility] Address [address] [place] [address] Care Team Providers Care Physical Therapy Manager Name Role Phone Cate Frederick APRN Primary Care Provider [phone] Encounter Details Date Type Department Care Team [...] Description 04/21/2025 2:20 PM EDT Office Visit [place] [facility] [address], [address] [place] [address] Marylou Laughlin MD [address] [place] [address] documented as of this encounter [...] documented as of this encounter Care Teams Physical Therapy Manager Relationship Specialty Start Date End Date Cate Frederick APRN [address] [place] [address] PCP - General 02/09/22 documented as of this encounter
[2025-04-08 15:36] LABS: Hematocrit 37.6 % (37.0-47.0); Hemoglobin 11.0 g/dL (12.2-16.2); Immature Granulocytes % 1.0 %; Mean Corpuscular HGB Conc 29.3 g/dL (31.8-35.4); Mean Corpuscular Hemoglobin 25.1 pg (27.0-31.2); Mean Corpuscular Volume 85.6 fl (81-99); Nucleated Red Blood Cells % 0 %; Platelet Count 177 K/mm3 (142-424); Red Blood Count 4.39 M/mm3 (4.20-5.40); Red Cell Distribution Width-SD 77.2 fL; White Blood Count 4.8 K/mm3 (4.8-10.8)
[2025-04-08 17:06] LABS: Ferritin 42.4 ng/ml (11.1-264)
[2025-04-08 17:29] LABS: Iron 72 ug/dL (37-170)
[2025-04-08 17:45] LABS: Total Iron Binding Capacity 339 ug/dL (265-497)
== END 2025-04-08 23:59 | disposition home or self-care (01) ==
LOC: LAB 14:43
PROVIDERS: PCP Nurse Practitioner Family; Visit Provider Internal Medicine Medical Oncology
DX: D50.9 Iron deficiency anemia, unspecified (principal)
CPT/HCPCS: 36415; 82728; 83540; 83550; 85025

== ENCOUNTER 2025-04-10 22:05 | Emergency (ER) | payer MEDICARE, SELFPAY ==
--- OUTSIDE RECORDS SUMMARY | 2025-02-11 10:20 | XMS_ITS | Encounter Summary ---
Author Organization [facility] Address [address] [place] [address] Care Team Providers Care Insurance Inspector Name Role Phone Cate Frederick APRN Primary Care Provider [phone] Reason for Referral * Other Medical (Routine) - Pending Review Specialty Diagnoses / Procedures Referred By Ольга chavez Referred To Contact Urology Diagnoses Bladder pain Chronic ulcerating interstitial cystitis Procedures Cysto- Urology Mary Cross APRN [address] [address] Phone: tel: fax: Referral ID Status Reason Start Date Expiration Date V isits Requested Visits Authorized [id number] Pending Review 02/11/2025 08/13/2026 1 1 Reason for Visit * Reason Comments Urinary Retention Follow-up Encounter Details Date Type Department Care Team (Late st Contact Info) Description 02/11/2025 10:20 AM EDT Office Visit [place] [facility] [address] [place] [address] Mary Cross APRN [address] [facility] [address] [place] [address] Recurrent UTI (Primary Dx); Bladder pain; Chronic ulcerating interstitial cystitis Social History Tobacco Use Types Packs/Day Years Used Date Smoking Tobacco: Every Day Cigarettes 0.5 70.2 Started: 01/23/1955 Smokeless Tobacco: Never Alcohol Use Standard Drinks/Week Comments Never 0 (1 standard drink = 0.6 oz pur e alcohol) PHQ-2 Answer Date Recorded Patient Health Questionnaire-2 Score 1 08/26/2023 PHQ-9 Answer Date Recorded Patient Health Questionnaire-9 Score 24 07/17/2023 PHQ-2A Answer Date Recorded Patient Health Questionnaire-2 Score 6 07/17/2023 Comments No Sex and Gender Information Value Date Recorded Sex Assigned at Female 08/01/2023 11:42 AM EST Legal Sex Female 12:30 PM EDT Gender Identity Female 08/01/2023 11:42 AM EST Sexual Orientation Straight 08/01/2023 11 :42 AM EST documented as of this encounter Last Filed Vital Signs Vital Sign Reading Time Taken Comments Blood Pressure 127/69 02/11/2025 10:27 AM EDT Pulse 60 02/11/2025 10:27 AM EDT Temperature - - Respiratory Rate - - Oxygen Saturation - - Inhaled Oxygen Concentration - - Weight - - Height - - Body Mass Index - - documented in this encounter Miscellaneous Notes * Progress Notes - Mary Cross APRN - 02/11/2025 10:20 AM EDT [facility] Note 02/11/25 CC: Urinary Retention and Follow-up HPI: Claribel Skelton is a 84 y.o. F with PMH T2DM, chronic systolic heart failure, mild dementia, renal tract candidiasis?, megoblastic anemia, HLD, HTN, AFIB, and chronic ulcerating interstitial cystitis. She has a history of previous bladder repair in the 1970s. She initially came to our office with reports of urgency, frequency, and bladder pain and was foundto have ulcers on office cystoscopy. She underwent cystoscopy, biopsy, and fulguration of ulcers with Dr. Laughlin on 08/27/2023 as well asinstillation of Amphotericin B. 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 She comes in today and reports complete resolution of urinary symptoms until the past month. She notes that she had an episode of cellulitis in her great toe and was treated with 2 rounds of antibiotics, then bladder symptoms started. She reports urgency, small-volume voids and dribbling, and bladder pain. denies any blood. Tried some boric suppositories without benefit. Since she was here last she has gotten a pacemaker and a stent in 04/2024. She is now on Xarelto andPlavix. At some point recently her A1c was 12.7. she was started on Insulin and is also on Glipizide and this has improved. PMHx: Past Medical History[1] PSHx: Surgical History[2] FHx: Family History[3] SHx: Social History[4] OBHx: OB History No obstetric history on file. ROS: See HPI Physical Exam: Vitals: 02/11/25 1027 BP: 127/69 Pulse: 60 Physical Exam Vitals reviewed. Constitutional: Appearance: Normal appearance. Pulmonary: Effort: Pulmonary effort is normal. Genitourinary: General: Normal vulva. Musculoskeletal: General: Normal range of motion. Cervical back: Normal range of motion. Skin: General: Skin is dry. Neurological: General: No focal deficit present. Mental Status: She is alert and oriented to person, place, and time. Mental status is at baseline. Psychiatric: Mood and Affect: Mood normal. Behavior: Behavior normal. Thought Content: Thought content normal. Judgment: Judgment normal. Results/Data: Recent Results (from the past 72 hours) POCT URINALYSIS DIPSTICK Collection Time: 02/11/25 10:24 AM Result Value Ref Range POCT Urine Color Dark Yellow POCT Urine Clarity Turbid POCT Urine Glucose 250 (A) Negative mg/dL POCT Urine Bilirubin Negative Negative mg/dL POCT Urine Ketones Negative Negative mg/dL POCT Urine Specific [place] >=1.030 1.005 - 1.030 POCT Urine Blood Large (A) Negative POCT pH, Urine 5.5 5.0 - 8.0 POCT Protein, Urine >=300 (A) Negative mg/dL POCT Urobilinogen, Urine 0.2 0.2, 1.0 EU/dL POCT Nitrite, Urine Negative Negative POCT Urine Leukocyte Esterase Trace (A) Negative POC US Bladder Volume Collection Time: 02/11/25 10:35 AM Result Value Ref Range Urine, Volume 1 mL Urine, Volume Date Value Ref Range Status 02/11/2025 1 mL Final Labs: Lab Results Component Value Date HGBA1C 5.70 (H) 01/19/2023 Lab Results Component Value Date GLUCOSE 222 (H) 11/04/2023 CALCIUM 8.9 11/04/2023 NA 140 11/04/2023 K 4.5 11/04/2023 CO2 24 08/08/2023 CL 105 11/04/2023 BUN 13 11/04/2023 CREATININE 0.85 11/04/2023 EGFR 68.1 11/04/2023 Recent Results (from the past week) POCT URINALYSIS DIPSTICK Collection Time: 02/11/25 10:24 AM Result Value Ref Range POCT Urine Color Dark Yellow POCT Urine Clarity Turbid POCT Urine Glucose 250 (A) Negative mg/dL POCT Urine Bilirubin Negative Negative mg/dL POCT Urine Ketones Negative Negative mg/dL POCT Urine Specific [place] >=1.030 1.005 - 1.030 POCT Urine Blood Large (A) Negative POCT pH, Urine 5.5 5.0 - 8.0 POCT Protein, Urine >=300 (A) Negative mg/dL POCT Urobilinogen, Urine 0.2 0.2, 1.0 EU/dL POCT Nitrite, Urine Negative Negative POCT Urine Leukocyte Esterase Trace (A) Negative POC US Bladder Volume Collection Time: 02/11/25 10:35 AM Result Value Ref Range Urine, Volume 1 mL Cultures: Lab Results Component Value Date URINECX No growth at day 1 08/27/2023 Imaging: Procedures: Bladder catheterization was performed by straight cath for micro, culture, and bladder instillation . The procedure was discussed with the patient. Risks include infection, bleeding, and allergic reaction. Benefits and alternatives were discussed and verbal consent was obtained prior tothe procedure. Following a betadine swabs x3 to urethra a straight catheter was inserted and turbid, yellow/white, thick, urine was noted. A residual urine output of 25 ml was noted from the straightcatheter. Irrigation with 30 mL sterile water performed. Prior to removing the catheter, I slowly instilled a bladder instillation of 20 mL 0.5% bupivacaine, 40,000 units Heparin, 10 mg Kenalog, and 40 mg gentamicin. Assessment: Claribel Skelton is a 84 y.o. F with Urinary Retention and Follow-up Here today for evaluation of bladder pain. She previously had fulguration with Dr. Laughlin with complete resolution of symptoms until recently. Cath urine obtained and revealed thick, white, milky urine. She was irrigated with 30 mL sterile water and given an instillation. Urine sent for culture, mycology, and microscopy. Will get her set up for repeat cystoscopy in the office to determine if ulcers are present. She is now on two blood-thinners, has a pacemaker, and stent increasing her surgical risks. Plan: Cath urine sent today for culture, microscopy and mycology Cystoscopy in office In addition to the time spent doing the bladder catheterization, the visit included 15 minutes for evaluation and management. Total time of encounter: 20 minutes Mary Cross APRN [1] Past Medical History: Diagnosis Date Broken wrist Hypercholesteremia Hypertension Recurrent UTI [2] Past Surgical History: Procedure Laterality Date HYSTERECTOMY WRIST SURGERY [3] Family History Problem Relation Name Age of Onset No Known Problems Mother No Known Problems Father No Known Problems Maternal Grandmother No Known Problems Maternal Grandfather No Known Problems Paternal Grandmother No Known Problems Paternal Grandfather Anesthesia problems Neg Hx Malig Hyperthermia Neg Hx [4] Social History Tobacco Use Smoking status: Every Day Current packs/day: 0.50 Average packs/day: 0.5 packs/day for 70.1 years (35.0 ttl pk-yrs) Types: Cigarettes Start date: 01/23/1955 Smokeless tobacco: Never Vaping Use Vaping status: Never Used Substance Use Topics Alcohol use: Never Drug use: Never documented in this encounter Plan of Treatment Upcoming Encounters Date Type Department Care Team (Late st Contact Info) Description 04/21/2025 2:20 PM EDT Office Visit [place] [facility] [address] [place] [address] Marylou Laughlin MD [address] [place] [address] Scheduled Orders Name Type Priority Associated Diagnoses Orde r Schedule Cysto- Urology Procedure Routine Bladder pain Chronic ulcerating interstitial cystitis Expected: 02/11/2025 (Approximate), Expires: 08/13/2026 documented as of this encounter Procedures Procedure Name Priority Date/Time Associated Diagnosis Comments URINALYSIS, MICROSCOPIC Routine 02/11/2025 12:07 PM EDT Bladder pain Chronic ulcerating interstitial cystitis FUNGAL CULTURE, ROUTINE Routine 02/11/2025 12:07 PM EDT Bladder pain Chronic ulcerating interstitial cystitis URINE CULTURE Routine 02/11/2025 12:07 PM EDT Bladder pain Chronic ulcerating interstitial cystitis POC US BLADDER SCAN FOR VOLUME Routine 02/11/2025 10:35 AM EDT Recurrent UTI POCT URINALYSIS DIPSTICK Routine 02/11/2025 10:24 AM EDT documented in this encounter Results * (ABNORMAL) Urinalysis, Microscopic (02/11/2025 12:07 PM EDT) RBC, Urine Unable to estimate due to obscuring WBC's (UNEWBC) 0 to 3 /HPF 02/11/2025 6:53 PM EDT [facility] WBC, Urine >50(A) 0 to 5 /HPF 02/11/2025 6:53 PM EDT [facility] Squamous Epithelial Cells Unable to estimate due to obscuring WBC's (UNEWBC) 0 to 5 /HPF 02/11/2025 6:53 PM EDT [facility] Hyaline Casts Unable to estimate due to obscuring WBC's (UNEWBC) 0 to 5 /LPF 02/11/2025 6:53 PM EDT [facility] Bacteria, Urine Present Negative 02/11/2025 6:53 PM EDT [facility] Yeast (Budding and/or Pseudohyphae) Present(A) Absent 02/11/2025 6:53 PM EDT [facility] Urine Urine specimen from urinary conduit / Unknown Non-blood Collection / Unknown 02/11/2025 12:07 PM EDT 02/11/2025 4:51 PM EDT Narrative [facility] - 02/11/2025 6:53 PM EDT Performed by manual method [employer] [facility] LAB URINE ORDERABLES Final Result Performing Organization Address [facility] [place] [address] * (ABNORMAL) Fungal Culture, Routine (02/11/2025 12:07 PM EDT) Culture Confluent Growth Radha glabrata(A) 02/18/2025 1:12 PM EDT [facility] Comment: This isolate has been identified using the FDA Approved [employer] [place] System Edited result: Previously reported as Yeast on 02/15/2025 at 1037 EDT. Urine Urine specimen / Unknown Non-blood Collection / Unknown 02/11/2025 12:07 PM EDT 02/11/2025 4:51 PM EDT us Mary Cross APRN LAB MICROBIOLOGY - GENERAL ORDERABLES Final Result Performing Organization Address [facility] [place] [address] * (ABNORMAL) Urine Culture (02/11/2025 12:07 PM EDT) Culture >=100,000 CFU/mL Lactobacillus species(A) 02/15/2025 9:56 AM EDT [facility] Comment:This is a corrected result. Previous organism was Alpha hemolytic streptococcus vs gram positive meaghan on 02/12/2025 at 1601 EDT. Culture >=100,000 CFU/mL Radha glabrata(A) 02/15/2025 9:56 AM EDT [facility] Comment: This isolate has been identified using the FDA Approved [employer] [place] System Contact Microbiology (20952) within 24 hours if susceptibility required. The organism value for this result has been updated. These results have been appended to the previously preliminary verified report. Edited result: Previously reported as Yeast on 02/15/2025 at 0758 EDT. Urine Urine specimen / Unknown Non-blood Collection / Unknown 02/11/2025 12:07 PM EDT 02/11/2025 4:51 PM EDT us Mary Cross APRN LAB MICROBIOLOGY - GENERAL ORDERABLES Final Result [facility] [address] [place] [address] * POC US Bladder Volume (02/11/2025 10:35 AM EDT) Urine, Volume 1 mL IMAGING Anatomical Region Laterality Modality Other us Mary Cross APRN IMG POINT OF CARE ULTRASOU ND Final Result * (ABNORMAL) POCT URINALYSIS DIPSTICK (02/11/2025 10:24 AM EDT) POCT Urine Color Dark Yellow 02/11/2025 10:[address] [facility] POCT Urine Clarity Turbid 02/11/2025 10:[address] [facility] POCT Urine Glucose 250(A) Negative mg/dL 02/11/2025 10:[address] [facility] POCT Urine Bilirubin Negative Negative mg/dL 02/11/2025 10:[address] [facility] POCT Urine Ketones Negative Negative mg/dL 02/11/2025 10:[address] [facility] POCT Urine Specific [place] >=1.030 1.005 - 1.030 02/11/2025 10:[address] [facility] POCT Urine Blood Large(A) Negative 02/11/2025 10:[address] [facility] POCT pH, Urine 5.5 5.0 - 8.0 02/11/2025 10:[address] [facility] POCT Protein, Urine >=300(A) Negative mg/dL 02/11/2025 10:[address] [facility] POCT Urobilinogen, Urine 0.2 0.2, 1.0 EU/dL 02/11/2025 10:[address] [facility] POCT Nitrite, Urine Negative Negative 02/11/2025 10:[address] [facility] POCT Urine Leukocyte Esterase Trace(A) Negative 02/11/2025 10:[address] [facility] Urine 02/11/2025 10:2 4 AM EDT 02/11/2025 10:26 AM EDT us Mary Cross APRN LAB POINT OF CARE TEST DOCKED DEVICE UNSOLICITED RESULTS Final Result [facility] [address] [place], [place] documented in this encounter Visit Diagnoses Diagnosis Recurrent UTI- Primary Urinary tract infection, site not specified Bladder pain Other symptoms involving urinary system Chronic ulcerating interstitial cystitis Chronic interstitial cystitis documented in this encounter Administered Medications Inactive Administered Medications - up to 3 most recent administrations Medication Order MAR Action Action Date Dose Rate Site bupivacaine (Marcaine) 0.5 % injection 100 mg 100 mg (20 mL), Intravesical, Once, 1 dose, On Hailey 02/11/25 at 1200, RoutineIndications:Bladder pain,Chronic ulcerating interstitial cystitis Given 02/11/2025 11:12 AM EDT 20 mL gentamicin (Garamycin) injection 40 mg 40 mg, Intravesical, Once, 1 dose, On Hailey 02/11/25 at 1200, RoutineIndications:Bladder pain,Chronic ulcerating interstitial cystitis Given 02/11/2025 11:12 AM EDT 40 mg heparin (porcine) injection 40,000 Units 40,000 Units, Intravesical, Once, 1 dose, On Hailey 02/11/25 at 1200, RoutineIndications:Bladder pain,Chronic ulcerating interstitial cystitis Given 02/11/2025 11:13 AM EDT 40,000 Units triamcinolone acetonide (Kenalog) 10 MG/ML injection 10 mg 10 mg, Intravesical, Once, 1 dose, On Hailey 02/11/25 at 1200, RoutineIndications:Bladder pain,Chronic ulcerating interstitial cystitis Given 02/11/2025 11:13 AM EDT 10 mg documented in this encounter Additional Health Concerns Assessment Noted Time PHQ-9 Depression Total Score: 24 023 12:02 PM EST A fall risk assessment has been complete d for the patient 02/11/2025 10:32 AM EDT A Body Mass Index follow-up plan has been documented for the patient 02/11/2025 12:46 PM EDT documented as of this encounter Care Teams Insurance Inspector Relationship Specialty Start Date End Date Cate Frederick APRN [address] [place] [address] PCP - General 02/09/22 documented as of this encounter
--- OUTSIDE RECORDS SUMMARY | 2025-02-17 09:40 | XMS_ITS | Encounter Summary ---
Author Organization [facility] Address [address] [place] [address] Care Team Providers Care News Assistant Name Role Phone Cate Frederick APRN Primary Care Provider Reason for Visit * Reason Comments Cystitis Encounter Details Date Type Department Care Team (Latest Contact Info) Description 02/17/2025 9:40 AM EDT Procedure Visit [facility] [address] [place] [address] Mary Cross APRN [address] [place] [address] Candiduria (Primary Dx); Megan glabrata [...] Notes * Progress Notes - Mary Cross, ACCOUNTANT - 02/17/2025 9:40 AM EDT [facility] Clinic Note 02/17/25 CC: No [...] Trace (A) Negative mg/dL POCT Urine Specific [place] 1.025 1.005 - 1.030 POCT Urine Blood [...] Ketones Negative Negative mg/dL POCT Urine Specific [place] >=1.030 1.005 - 1.030 POCT Urine Blood [...] Trace (A) Negative mg/dL POCT Urine Specific [place] 1.025 1.005 - 1.030 POCT Urine Blood [...] Description 04/21/2025 2:20 PM EDT Office Visit [facility] Urology [address] [place] [address] Marylou Laughlin MD [address] [place] [address] documented as of this encounter Procedures Procedure Name Priority Date/Time Associated Diagnosis Comments POCT URINALYSIS DIPSTICK Routine 02/17/2025 9:56 AM EDT documented in this encounter Results * (ABNORMAL) POCT URINALYSIS DIPSTICK (02/17/2025 9:56 AM EDT) POCT Urine Color Yellow 02/17/2025 9:58 AM EDT [facility] POCT Urine Clarity Clear 02/17/2025 9:58 AM EDT [facility] POCT Urine Glucose >=1000(A) Negative mg/dL 02/17/2025 9:58 AM EDT [facility] POCT Urine Bilirubin Negative Negative mg/dL 02/17/2025 9:58 AM EDT [facility] POCT Urine Ketones Trace(A) Negative mg/dL 02/17/2025 9:58 AM EDT [facility] POCT Urine Specific [place] 1.025 1.005 - 1.030 02/17/2025 9:58 AM EDT [facility] POCT Urine Blood Large(A) Negative 02/17/2025 9:58 AM EDT [facility] POCT pH, Urine 5.5 5.0 - 8.0 02/17/2025 9:58 AM EDT [facility] POCT Protein, Urine >=300(A) Negative mg/dL 02/17/2025 9:58 AM EDT [facility] POCT Urobilinogen, Urine 0.2 0.2, 1.0 EU/dL 02/17/2025 9:58 AM EDT [facility] POCT Nitrite, Urine Negative Negative 02/17/2025 9:58 AM EDT [facility] POCT Urine Leukocyte Esterase Small(A) Negative 02/17/2025 9:58 AM EDT [facility] Urine 02/17/2025 9:56 AM EDT 02/17/2025 9:58 AM EDT us Mary Cross APRN LAB POINT OF CARE TEST DOCKED DEVICE UNSOLICITED RESULTS Final Result [facility] [address] [place], [place] documented in this encounter Visit Diagnoses [...] documented as of this encounter Care Teams News Assistant Relationship Specialty Start Date End Date Cate Frederick APRN [address] [place] [address] PCP - General 02/09/22 documented as of this encounter
--- OUTSIDE RECORDS SUMMARY | 2025-02-18 11:00 | XMS_ITS | Encounter Summary ---
Author Organization [facility] Address [address] [place] [address] Care Team Providers Care Sports Centre Manager Name Role Phone Cate Frederick APRN Primary Care Provider [phone] Reason for Visit * Reason Comments Bladder Instillation Encounter Details Date Type Department Care Team (Latest Contact Info) Description 02/18/2025 11:00 AM EDT Procedure Visit [place] [facility] [address], [address] [place] [address] Chelsea Cole LPN [facility] Megan glabrata infection (Primary Dx) Social History Tobacco Use Types Packs/Day Years [...] Sign Reading Time Taken Comments Blood Pressure 115/44 02/18/2025 11:23 AM EDT Pulse 82 02/18/2025 11:23 AM EDT Temperature - - Respiratory Rate - - Oxygen Saturation - - Inhaled Oxygen Concentration - - Weight - - Height - - Body Mass Index - - documented in this encounter Miscellaneous Notes * Progress Notes - Mary Cross APRN - 02/18/2025 11:00 AM EDT [facility] Clinic Note 02/18/25 CC: No chief complaint on file. HPI: [...] on file. ROS: See HPI Physical Exam: There were no vitals filed for this visit. Physical Exam Vitals reviewed. Constitutional: Appearance: Normal [...] Trace (A) Negative mg/dL POCT Urine Specific [place] 1.025 1.005 - 1.030 POCT Urine Blood [...] Ketones Negative Negative mg/dL POCT Urine Specific [place] >=1.030 1.005 - 1.030 POCT Urine Blood [...] Trace (A) Negative mg/dL POCT Urine Specific [place] 1.025 1.005 - 1.030 POCT Urine Blood [...] Daily ampho B x 7 days Mary Corss APRN [1] Past Medical History: Diagnosis Date [...] Topics Alcohol use: Never Drug use: Never * Progress Notes - Chelsea Cole LPN - 02/18/2025 11:00 AM EDT Bladder catheterization and instillation procedure was discussed with the patient including benefits and risks for infection, bleeding and allergic reaction. Verbal consent from the patient was given. Patient was then prepped using betadine swabs x3 and bladder catheterization per urethra was performed using an 10 fr hydrophilic catheter using sterile technique. Urine was obtained via catheter and then was slowly ampho B instillation instilled. Patient tolerated procedure well with no complaints. Plan: 1. Patient advised keep scheduled follow-up appts with provider. 2. Patient advised to call the office with any signs or symptoms of UTI, abnormal bleeding, or other concerns. documented in this encounter Plan of Treatment Upcoming Encounters Date Type Department Care Team (Late st Contact Info) Description 04/21/2025 2:20 PM EDT Office Visit [facility] Urology [address], [address] [place] [address] Marylou Laughlin MD [address] [place] [address] documented as of this encounter Results * (ABNORMAL) Urinalysis, Microscopic (02/23/2025 1:48 PM EDT) RBC, Urine 4 - 10(A) 0 to 3 /HPF LAB URINALYSIS - AUTOMATED METHOD 02/23/2025 6:51 PM EDT [facility] WBC, Urine >50(A) 0 to 5 /HPF LAB URINALYSIS - AUTOMATED METHOD 02/23/2025 6:51 PM EDT [facility] Squamous Epithelial Cells 0 - 2 0 to 5 /HPF LAB URINALYSIS - AUTOMATED METHOD 02/23/2025 6:51 PM EDT [facility] Hyaline Casts 0 - 2 0 to 5 /LPF LAB URINALYSIS - AUTOMATED METHOD 02/23/2025 6:51 PM EDT [facility] Bacteria, Urine Negative Negative LAB URINALYSIS - AUTOMATED METHOD 02/23/2025 6:[address] [facility] Urine Urine specimen obtained by clean catch procedure / Unknown Non-blood Collection / Unknown 02/23/2025 1:48 PM EDT 02/23/2025 4:41 PM EDT us Mary Cross APRN LAB URINE ORDERABLES Final Result Performing Organization Address City/[facility]/ZIP Co de Phone Number [facility] [address] [place] [address] * (ABNORMAL) Fungal Culture, Routine (02/23/2025 1:48 PM EDT) Culture Heavy Growth Megan glabrata(A) 03/03/2025 9:36 AM EDT [facility] Comment: This isolate has been identified using the FDA Approved FD9 [employer] [place] System Edited result: Previously reported as Yeast on 02/26/2025 at 0938 EDT. Urine Urine specimen obtained by clean catch procedure / Unknown Non-blood Collection / Unknown 02/23/2025 1:48 PM EDT 02/23/2025 4:41 PM EDT us Mary Cross APRN LAB MICROBIOLOGY - GENERAL ORDERABLES Final Result Performing Organization Address [facility] Co de Phone Number [facility] [address] [place] [address] * Urine Culture (02/23/2025 1:48 PM EDT) Culture No growth at day 1 02/25/2025 11:16 AM EDT [facility] Urine Urine specimen obtained by clean catch procedure / Unknown Non-blood Collection / Unknown 02/23/2025 1:48 PM EDT 02/23/2025 4:41 PM EDT us Mary Cross APRN LAB MICROBIOLOGY - GENERAL ORDERABLES Final Result Performing Organization Address City/[facility]/ZIP Co de Phone Number [facility] [address] [place] [address] documented in this encounter Visit Diagnoses Diagnosis Megan glabrata infection- Primary Candidiasis of unspecified site documented in this encounter Administered Medications Inactive Administered Medications - up to 3 most recent administrations Medication Order MAR Action Action Date Dose Rate Site amphotericin B conventional (Fungizone) injection 15 mg 15 mg, Intravesical, Daily, 7 doses, First dose (after last modification) on Sat02/17/25 at 0900, Last dose on Sat02/23/25 at 0900, RoutineIndications:Megan glabrata infection,Candiduria Given 02/23/2025 1:58 PM EDT 15 mg Given 02/22/2025 1:52 PM EDT 15 mg Given 02/18/2025 11:00 AM EDT 15 mg lidocaine PF (Xylocaine) 2 % injection 300 mg 300 mg (15 mL), Other, Once, 1 dose, On Hailey 02/18/25 at 1300, RoutineIndications:Megan glabrata infection Given 02/18/2025 11:00 AM EDT 300 mg documented in this encounter Additional Health Concerns Assessment Noted Time PHQ-9 Depression Total Score: 24 023 12:02 PM EST A fall risk assessment has been complete d for the patient 02/11/2025 10:32 AM EDT A Body Mass Index follow-up plan has been documented for the patient 02/18/2025 2:05 PM EDT documented as of this encounter Care Teams Sports Centre Manager Relationship Specialty Start Date End Date Cate Frederick APRN [address] [place] [address] PCP - General 02/09/22 documented as of this encounter
--- OUTSIDE RECORDS SUMMARY | 2025-02-22 13:15 | XMS_ITS | Encounter Summary ---
Author Organization [facility] Address [address] [place] [address] Care Team Providers Care Rail Car Welder Name Role Phone Cate Frederick APRN Primary Care Provider Reason for Visit * Reason Comments Bladder Instillation Encounter Details Date Type Department Care Team (Latest Contact Info) Description 02/22/2025 1:15 PM EDT Clinical Support [facility] Urology [address] [place] [phone] [place] Cole LPN [facility] Radha glabrata infection (Primary [...] Description 04/21/2025 2:20 PM EDT Office Visit [facility] Urology [address], [address] [place] [address] Marylou Laughlin MD [address] [place] [address] documented as of this encounter Visit Diagnoses [...] documented as of this encounter Care Teams Rail Car Welder Relationship Specialty Start Date End Date Cate Frederick, MIGUEL [address] [place] [address] PCP - General 02/09/22 documented as of this encounter
--- OUTSIDE RECORDS SUMMARY | 2025-02-23 13:15 | XMS_ITS | Encounter Summary ---
Author Organization [facility] Address [address] [place] [address] Care Team Providers Care Citizenship Instructor Name Role Phone Cate Frederick APRN Primary Care Provider Reason for Visit * Reason Comments Bladder Instillation Encounter Details Date Type Department Care Team (Latest Contact Info) Description 02/23/2025 1:15 PM EDT Clinical Support [facility] [address], [address] [place] [phone] Chelsea Cole LPN [facility] Radha glabrata infection [...] Description 04/21/2025 2:20 PM EDT Office Visit [facility] [address], [address] [place] [address] Marylou Laughlin MD [address] [place] [address] documented as of this encounter Procedures Procedure [...] at day 1 02/25/2025 11:16 AM EDT [facility] Urine Urine specimen obtained by clean catch procedure / Unknown Non-blood Collection / Unknown 02/23/2025 1:48 PM EDT 02/23/2025 4:41 PM EDT us Mary Cross APRN LAB MICROBIOLOGY - GENERAL ORDERABLES Final Result Performing Organization Address [facility] Co de Phone Number [facility] [address] [place] [address] * (ABNORMAL) Fungal Culture, Routine (02/23/2025 1:48 PM EDT) Culture Heavy Growth Radha glabrata(A) 03/03/2025 9:36 AM EDT [facility] Comment: This isolate has been identified using the FDA Approved MALDI [employer] [place] System Edited result: Previously reported as Yeast on 02/26/2025 at 0938 EDT. Urine Urine specimen obtained by clean catch procedure / Unknown Non-blood Collection / Unknown 02/23/2025 1:48 PM EDT 02/23/2025 4:41 PM EDT us Mary Cross APRN LAB MICROBIOLOGY - GENERAL ORDERABLES Final Result Performing Organization Address City/[facility]/ZIP Co de Phone Number [facility] [address] [place] [address] * (ABNORMAL) Urinalysis, Microscopic (02/23/2025 1:48 PM EDT) RBC, Urine 4 - 10(A) 0 to 3 /HPF LAB URINALYSIS - AUTOMATED METHOD 02/23/2025 6:51 PM EDT [facility] WBC, Urine >50(A) 0 to 5 /HPF LAB URINALYSIS - AUTOMATED METHOD 02/23/2025 6:51 PM EDT [facility] Squamous Epithelial Cells 0 - 2 0 to 5 /HPF LAB URINALYSIS - AUTOMATED METHOD 02/23/2025 6:51 PM EDT [facility] Hyaline Casts 0 - 2 0 to 5 /LPF LAB URINALYSIS - AUTOMATED METHOD 02/23/2025 6:51 PM EDT [facility] Bacteria, Urine Negative Negative LAB URINALYSIS - AUTOMATED METHOD 02/23/2025 6:51 PM EDT [facility] Urine Urine specimen obtained by clean catch procedure / Unknown Non-blood Collection / Unknown 02/23/2025 1:48 PM EDT 02/23/2025 4:41 PM EDT Mary Cross APRN LAB URINE ORDERABLES Final Result Performing Organization Address City/State/[facility] Co de Phone Number [facility] [address] [place] [address] documented in this encounter Visit Diagnoses Diagnosis [...] documented as of this encounter Care Teams Citizenship Instructor Relationship Specialty Start Date End Date Cate Frederick APRN [address] [place] [address] PCP - General 02/09/22 documented as of this encounter
--- OUTSIDE RECORDS SUMMARY | 2025-02-24 13:30 | XMS_ITS | Encounter Summary ---
Author Organization [facility] Address [address] [place] [address] Care Team Providers Care Stone Polisher Machine Name Role Phone Cate Frederick APRN Primary Care Provider Reason for Visit * Reason Comments Bladder Instillation Encounter Details Date Type Department Care Team (Latest Contact Info) Description 02/24/2025 1:30 PM EDT Clinical Support [facility]rology [address], [address] [place] [phone] Germaine Francisco LPN [facility] Recurrent UTI (Primary Dx) Social [...] clinic with any questions or concerns at [phone] documented in this encounter Plan of Treatment Upcoming Encounters Date Type Department Care Team (Late st Contact Info) Description 04/21/2025 2:20 PM EDT Office Visit [facility]rology [address], [address] [place] [address] Marylou Laughlin MD [address] [place] [address] documented as of this encounter [...] documented as of this encounter Care Teams Stone Polisher Machine Relationship Specialty Start Date End Date Cate Frederick APRN [address] [place] [address] PCP - General 02/09/22 documented as of this encounter
--- OUTSIDE RECORDS SUMMARY | 2025-02-25 13:15 | XMS_ITS | Encounter Summary ---
Author Organization [facility] Address [address] [place] [address] Care Team Providers Care Senior Clinical Consultant Name Role Phone Cate Frederick APRN Primary Care Provider Reason for Visit * Reason Comments Bladder Instillation Encounter Details Date Type Department Care Team (Late st Contact Info) Description 02/25/2025 1:15 PM EDT Clinical Support [place] [facility] [address], [address] [place] [address] Marek Bello EM[facility] Candiduria [...] clinic with any questions or concerns at [phone] documented in this encounter Plan of Treatment Upcoming Encounters Date Type Department Care Team (Late st Contact Info) Description 04/21/2025 2:20 PM EDT Office Visit [place] [facility] [address], [address] [place] [address] Marylou Laughlin MD [address] [place] [address] documented as of this encounter [...] documented as of this encounter Care Teams Senior Clinical Consultant Relationship Specialty Start Date End Date Cate Frederick APRN [address] [place] [address] PCP - General 02/09/22 documented as of this encounter
--- OUTSIDE RECORDS SUMMARY | 2025-02-26 13:15 | XMS_ITS | Encounter Summary ---
Author Organization [facility] Address [address] [place] [address] Care Team Providers Care Mri Specialist Name Role Phone Cate Frederick APRN Primary Care Provider Reason for Visit * Reason Comments Bladder Instillation Encounter Details Date Type Department Care Team (Latest Contact Info) Description 02/26/2025 1:15 PM EDT Clinical Support [place] [facility] [address], [address] [place] [phone] Chelsea Cole LPN [facility] Candiduria (Primary Dx) Social [...] Description 04/21/2025 2:20 PM EDT Office Visit [facility]rology [address], [address] [place] [address] Marylou Laughlin MD [address] [place] [address] documented as of this encounter Visit Diagnoses [...] documented as of this encounter Care Teams Mri Specialist Relationship Specialty Start Date End Date Cate Frederick APRN [address] [place] [address] PCP - General 02/09/22 documented as of this encounter
--- NOTE | 2025-04-10 22:13 | [facility].EDGENADL ---
Discharge Plan Disposition Patient Disposition: Home, Self-Care Condition: Good Prescriptions Prescriptions: No Action Tradjenta 5 mg tablet 5 mg PO DAILY cyanocobalamin (vitamin B-12) [Vitamin B-12] 2,500 mcg tablet, sublingual 2,500 mcg PO DAILY Patient Comments: DISSOLVE 1 TABLET UNDER THE TONGUE EVERY DAY ferrous sulfate 325 mg (65 mg iron) tablet 325 mg PO DAILY Patient Comments: TAKE 1 TABLET BY MOUTH EVERY DAY Xarelto 15 mg tablet 15 mg PO QPMWITHMEAL Qty: 30 5RF (DME) blood-glucose meter [OneTouch Verio Flex meter] [place] See Rx Instructions .ROUTE .MEDSUPPLY Qty: 1 Patient Comments: test blood glucose twice a day Rx Instructions: As directed glipizide 5 mg tablet extended release 24hr 5 mg PO DAILY Patient Comments: TAKE ONE TABLET BY MOUTH EVERY MORNING FOR DIABETES (DME) OneTouch Verio test strips Strip See Rx Instructions .ROUTE .MEDSUPPLY Qty: 10 Patient Comments: Use as directed to check glucose twice daily Rx Instructions: As directed (DME) pen needle, diabetic [BD Ultra-Fine Nai Pen Needle] 32 gauge x 5/32 needle See Rx Instructions .ROUTE .MEDSUPPLY Qty: 1200 Patient Comments: Use as directed with insulin Rx Instructions: As directed (DME) lancets [OneTouch Delica Plus Lancet] 33 gauge misc See Rx Instructions .ROUTE .MEDSUPPLY Qty: 100 Patient Comments: Use as directed to test blood glucose twice daily Rx Instructions: As directed clopidogrel 75 MG tablet 75 mg PO DAILY amitriptyline 50 mg tablet 50 mg PO HS atorvastatin 40 mg tablet 40 mg PO HS Patient Comments: TAKE 1 TABLET BY MOUTH AT BEDTIME NIGHTLY amiodarone 200 mg Tablet 400 mg PO BID 30 Days Qty: 120 0RF insulin glargine [Lantus Solostar U-100 Insulin] 100 unit/mL (3 mL) insulin pen 30 unit SQ HS 30 Days Qty: 0 0RF Patient Comments: Inject 20 units every day by subcutaneous route at bedtime, for diabetes. Referrals Follow up/Referrals: Cate Frederick [Primary Care Provider, Medical] - See instructions Referral Note: Please re-check kidney labs, Hgb, Left hand wound, Left hip hematoma, and schedule follow up for popliteal artery stenosis Activity Restrictions/Add. Instructions Additional Instructions/Restrictions: You were evaluated in the ER and are believed to be appropriate for discharge at this time. Continue taking your home medications as previously prescribed. Stay well-hydrated by drinking water, Gatorade, Pedialyte. This will help protect your kidneys. Keep the dressing on your left hand clean and dry. Do not get it wet or dirty. This should stay in place until Saturday. When you remove the dressing, take off the bandage and gauze and soak the hand in warm water for 1 to 2 minutes before removing the clotting surgical mesh like we discussed. Gently wash it in warm soapy water and apply the nonstick gauze and loosely wrapped the hand as shown. Call your primary care doctor tomorrow morning and make an appointment to be seen on Saturday or . They should recheck your wound on your hand, recheck the swelling on your left hip, as well as recheck your kidney labs and talk about your decreasing kidney function. They should also recheck your blood count. Return to the ER with any new, worsening, or otherwise concerning symptoms as discussed. Clinical Impressions Clinical Impression: Laceration of hand, left, Fall, Anemia, Popliteal artery stenosis Traumatic hematoma of buttock Qualifiers: Encounter type: initial encounter Qualified Code(s): S30.0XXA - Contusion of lower back and pelvis, initial encounter Print Language Print Language: [place] Discharge ED Provider: Angela Fuentes General Adult HPI <Angela Fuentes DO - Last Filed: 04/11/25 00:54> General Chief complaint: Extremity Injury, Upper Stated complaint: left hand cut Time Seen by Provider: 04/10/25 22:13 History of Present Illness HPI narrative: Patient is an 84-year-old female with a past medical history of A-fib and coronary artery disease on Xarelto and Plavix who presented to the emergency department with a left upper extremity injury. Patient states that yesterday she was walking outside when she fell and landed on the concrete hit her left hip as well as her left hand. Patient was able to get up and ambulate afterwards. Patient states that she has a skin tear on her left hand that she has been unable to get to stop bleeding. This is what brought them here to the emergency department. Patient denies any significant pain of the left hand. Patient of note reported that she had a large hematoma of her left hip as well. Patient did not hit her head, did not lose consciousness. Related Data Home Medications ?Medication ?Instructions ?Recorded ?Confirmed clopidogrel 75 mg tablet 75 mg PO DAILY 04/21/21 04/08/25 linagliptin 5 mg tablet (Tradjenta) 5 mg PO DAILY 08/15/22 04/08/25 amitriptyline 50 mg tablet 50 mg PO HS 05/03/24 04/08/25 blood sugar diagnostic (OneTouch #10 ea 10/01/24 04/08/25 Verio test strips) blood-glucose meter ([employer] #1 ea 10/01/24 04/08/25 Verio Flex Meter) glipizide 5 mg tablet, extended 5 mg PO DAILY 10/01/24 04/08/25 release 24 hr lancets 33 gauge (OneTouch Delica #100 ea 10/01/24 04/08/25 Plus Lancet) pen needle, diabetic 32 gauge x #1,200 ea 10/01/24 04/08/25/32 (BD Ultra-Fine Nai Pen Needle) atorvastatin 40 mg tablet 40 mg PO HS 03/14/25 04/08/25 cyanocobalamin (vitamin B-12) 2,500 mcg PO DAILY 04/08/25 04/08/25 2,500 mcg sublingual tablet (Vitamin B-12) ferrous sulfate 325 mg (65 mg 325 mg PO DAILY 04/08/25 04/08/25 iron) tablet Previous Rx's ?Medication ?Instructions ?Recorded rivaroxaban 15 mg tablet (Xarelto) 15 mg PO QPMWITHMEAL #30 tabs 06/10/24 amiodarone 200 mg tablet 400 mg (2 x 200 mg) PO BID 30 days 03/16/25 #120 tabs insulin glargine 100 unit/mL (3 30 unit (0.3 mL) SQ HS 30 days #0 03/16/25 mL) subcutaneous pen (Lantus mL Solostar U-100 Insulin) Allergies Allergy/AdvReac Type Severity Reaction Status Date / Time Sulfa (Sulfonamide Allergy Unknown Unknown Verified 04/08/25 14:15 Antibiotics) allergy reaction Penicillins Allergy Other Verified 04/08/25 14:15 [facility] <Angela Fuentes, DO - Last Filed: 04/11/25 00:54> [facility] Disclaimer: The information contained in this section may have been updated after the patient was seen, as this information can be updated by other users. Medical History (HFpEF) heart failure with preserved ejection fraction Dizziness History of cardiac pacemaker in situ Implant APR 2024 Hypotension Atrial flutter Pre-syncope Descending thoracic aortic aneurysm Abnormal echocardiogram Diabetes mellitus Symptomatic bradycardia Shortness of Breath Atypical angina COPD (chronic obstructive pulmonary disease) Hyperlipidemia Hypertension Aortic heart murmur Coronary artery disease Abnormal electrocardiogram [ECG] [EKG] Encounter for pre-operative cardiovascular clearance Surgical History History of coronary artery stent placement Family History Father Family history of myocardial infarction Social History Smoking Status: Current every day smoker tobacco type: cigarettes packs per day: 1 second hand exposure: Yes alcohol intake: never substance use type: denies use current occupational status: retired Travel in the last 8 weeks?: None household members: spouse housing: house current occupation: [employer] current occupational exposures/hazards: No caffeine: No Have you lived/traveled outside [place] in past 30 days?: No Contact w/someone who lives/traveled outside US past 30 days?: No Exposure to someone with infectious disease in past 14 days?: No Do you have a fever (greater than 100.4 F or 38 C)?: No Have you tested positive for COVID-19?: No Exposed to someone with COVID-19 in past 14 days?: No Do you have a sore throat?: No Do you have a cough?: No Do you have any weakness?: No Do you have any diarrhea?: No Are you experiencing any unusual bleeding?: No Do you have any muscle aches/pain?: No Do you have any abdominal pain?: No Are you experiencing loss of taste or smell?: No Other Medical History Have you received the Flu Vaccine for this season: No Have you received the Pneumonia Vaccine: Yes <Angela Fuentes DO - Last Filed: 04/11/25 00:54> ROS Obtained: Yes All systems reviewed & no additional complaints except as documented and Yes Systems reviewed as appropriate & no additional complaints except as documented Physical Exam <Angela Fuentes DO - Last Filed: 04/11/25 00:54> General General appearance: alert and in no apparent distress Head Head exam: atraumatic, normocephalic and normal inspection Eye Eye exam: Present normal appearance, PERRL and EOMI; Absent scleral icterus ENT ENT exam: Present normal exam and normal external ear exam Neck Neck exam: Present normal inspection and full ROM Chest Chest inspection: Present normal inspection and symmetric chest wall rise Respiratory Respiratory exam: Present normal lung sounds bilaterally; Absent respiratory distress or wheezes Cardiovascular Cardiovascular exam: Present regular rate, normal rhythm and normal heart sounds Abdominal Exam Abdominal exam: Present soft and distention; Absent tenderness, guarding or rebound Extremities Exam Extremities exam: Present normal inspection, full ROM and other (L hand with a skin tear on the palmar aspect with some venous oozing, mild tenderness of the wrist, FROM of LUE and LLE) Back Exam Back exam: Present normal inspection and full ROM Neurological Exam Neurological exam: Present alert and oriented X3 Psychiatric Psychiatric exam: Present normal affect and normal mood Skin Skin exam: Present warm, dry and other (LLE just distal to the hip with a hematoma, no external bruising) Medical Decision Making <Angela Fuentes DO - Last Filed: 04/11/25 00:54> Medical Records Medical records reviewed: Yes I reviewed the patient's medical records. Screening: Per USPSTF and CDC recommendations, given the prevalence of disease in our region, it is our hospital?s policy to screen for HIV and viral Hepatitis for all patients aged 18 and over and those with ongoing risk factors. [place] Inquiry Pt receiving controlled substance: No Vital Signs: 04/10/25 22:14 04/10/25 22:32 04/10/25 23:01 Temperature 98.1 F Temperature Source Oral Pulse Rate 61 60 Pulse Rate [Right Radial] 60 Respiratory Rate 16 Blood Pressure 132/56 L 141/62 H Blood Pressure [Right Arm] 157/66 H Blood Pressure Mean [Right Arm] 96 Blood Pressure Source Blood Pressure Source [Right Arm] Automatic Cuff Blood Pressure Position Blood Pressure Position [Right Arm] Supine 02 Sat by Pulse Oximetry 98 98 99 Oxygen Delivery Method Room Air 04/11/25 00:20 04/11/25 01:01 04/11/25 01:44 Temperature 98.4 F Temperature Source Oral Pulse Rate 61 66 60 Pulse Rate [Right Radial] Respiratory Rate 18 Blood Pressure 138/110 H 107/85 L 167/63 H Blood Pressure [Right Arm] Blood Pressure Mean [Right Arm] Blood Pressure Source Automatic Cuff Blood Pressure Source [Right Arm] Blood Pressure Position Sitting Blood Pressure Position [Right Arm] 02 Sat by Pulse Oximetry 97 97 Oxygen Delivery Method Room Air Lab Data Lab results reviewed: Yes I reviewed the patient's lab results. Lab Results 04/10/25 23:33: WBC 4.5 L, RBC 3.75 L, Hgb 9.9 L, Hct 32.1 L, MCV 85.6, MCH 26.4 L, MCHC 30.8 L, RDW 24.9 H, Plt Count 166, MPV 10.7 H, Neut % (Auto) 61.0, Lymph % (Auto) 30.2, [place] % (Auto) 7.3, Eos % (Auto) 0.9, Baso % (Auto) 0.4, Neut # (Auto) 2.8, Lymph # (Auto) 1.4, [place] # (Auto) 0.3, Eos # (Auto) 0.0, Baso # (Auto) 0.0, PT 17.3 H, INR 1.61 H, Sodium 140, Potassium 4.2, Chloride 106, Carbon Dioxide 27, Anion Gap 11.2, BUN 19 H, Creatinine 1.40 H, Estimated Creat Clear 27, Estimated GFR 36 L, Est GFR ( Amer) 43 L, Glucose 84, Calcium 8.8, Total Bilirubin 0.4, AST 43 H, ALT 29, Alkaline Phosphatase 82, Total Protein 6.8, Albumin 3.9, Globulin 2.9, Albumin/Globulin Ratio 1.3 04/10/25 23:33 04/10/25 23:33 Orders (Tests/Meds): ED MEDICATIONS Generic Name Dose Route Start Last Admin Trade Name Freq PRN Reason Stop Dose Admin Sodium Chloride 10 ml 04/11/25 00:48 04/11/25 00:49 Sodium Chloride 0.9% 10ml Syr (Rad Only) IV 05/11/25 00:47 10 ml NEEDED PRN Administration Maintain IV Site Discontinued Medications Generic Name Dose Route Start Last Admin Trade Name Freq PRN Reason Stop Dose Admin Tranexamic Acid 1,000 mg/ 260 mls @ 520 mls/hr 04/10/25 23:33 04/11/25 00:12 Sodium Chloride TP 04/10/25 23:34 Not Given ONCE ONE Lactated Ringer's 1,000 mls @ 999 mls/hr 04/11/25 00:17 04/11/25 00:23 Lactated Ringer's 1000 Ml Bag IV 04/11/25 01:17 999 mls/hr .Q1H1M ONE Administration Iopamidol 120 ml 04/11/25 00:48 04/11/25 00:49 Iopamidol-370 (76%);100ml Bottle IV 04/11/25 00:49 120 ml ONCE ONE Administration Sodium Chloride 100 ml 04/11/25 00:48 04/11/25 00:49 0.9 % Sodium Chloride 50 Ml Vial IV 04/11/25 00:49 100 ml ONCE ONE Administration Tranexamic Acid 1,000 mg 04/11/25 00:15 04/11/25 00:11 Tranexamic Acid 1,000 Mg/10 Ml Vial TP 04/11/25 00:16 1,000 mg ONCE ONE Administration ORDERS Category Date Time Status CT angio abdomen/femoral Stat Cat Scan 04/10/25 22:29 Completed Hand XR left minimum 3 views [XR hand LT min 3V] Stat Exams 04/10/25 22:29 Completed Wrist XR left minimum 3 views [XR wrist LT min 3V] Stat Exams 04/10/25 22:29 Completed CBC w/Auto Diff [Complete Blood Count Auto Diff] Stat Lab 04/10/25 23:33 Completed CMP [Comprehensive Metabolic Panel] Stat Lab 04/10/25 23:33 Completed Prothrombin Time INR Stat Lab 04/10/25 23:33 Completed Medical Decision Narrative: Patient is an otherwise healthy 84-year-old female with a past medical history of A-fib on Xarelto as well as Plavix who presented to the emergency department with a left upper extremity injury. On arrival, patient was hemodynamically stable with unremarkable vital signs. Differential includes but not limited to: Skin tear, fracture, dislocation, sprain, strain, active extrav on hematoma, amongst others. Patient's labs were reviewed and interpreted by myself: CBC showed no leukocytosis, hemoglobin was stable. INR elevated at 1.61. CMP with elevated creatinine at 1.4 otherwise unremarkable. XR's were obtained of the [facility] and were reviewed and interpreted by myself and showed no acute fractures however final radiology read pending at the time of signout. Given concern for active extra of on the hematoma of the left lower extremity, CTA with runoff was obtained. Patient did not hit her head did not lose consciousness therefore CT imaging of the head was not obtained. Had no other bony tenderness therefore further CT imaging to evaluate for fractures or other acute pathology was not obtained x-rays as above. CTA pending at the time of signout. Patient was handed off to Dr. Simpson pending final CTA read as well as x-rays. <Isac Simpson MD - Last Filed: 04/11/25 02:09> Vital Signs: 04/10/25 22:14 04/10/25 22:32 04/10/25 23:01 Temperature 98.1 F Temperature Source Oral Pulse Rate 61 60 Pulse Rate [Right Radial] 60 Respiratory Rate 16 Blood Pressure 132/56 L 141/62 H Blood Pressure [Right Arm] 157/66 H Blood Pressure Mean [Right Arm] 96 Blood Pressure Source Blood Pressure Source [Right Arm] Automatic Cuff Blood Pressure Position Blood Pressure Position [Right Arm] Supine 02 Sat by Pulse Oximetry 98 98 99 Oxygen Delivery Method Room Air 04/11/25 00:20 04/11/25 01:01 04/11/25 01:44 Temperature 98.4 F Temperature Source Oral Pulse Rate 61 66 60 Pulse Rate [Right Radial] Respiratory Rate 18 Blood Pressure 138/110 H 107/85 L 167/63 H Blood Pressure [Right Arm] Blood Pressure Mean [Right Arm] Blood Pressure Source Automatic Cuff Blood Pressure Source [Right Arm] Blood Pressure Position Sitting Blood Pressure Position [Right Arm] 02 Sat by Pulse Oximetry 97 97 Oxygen Delivery Method Room Air Lab Data Lab Results 04/10/25 23:33: WBC 4.5 L, RBC 3.75 L, Hgb 9.9 L, Hct 32.1 L, MCV 85.6, MCH 26.4 L, MCHC 30.8 L, RDW 24.9 H, Plt Count 166, MPV 10.7 H, Neut % (Auto) 61.0, Lymph % (Auto) 30.2, [place] % (Auto) 7.3, Eos % (Auto) 0.9, Baso % (Auto) 0.4, Neut # (Auto) 2.8, Lymph # (Auto) 1.4, [place] # (Auto) 0.3, Eos # (Auto) 0.0, Baso # (Auto) 0.0, PT 17.3 H, INR 1.61 H, Sodium 140, Potassium 4.2, Chloride 106, Carbon Dioxide 27, Anion Gap 11.2, BUN 19 H, Creatinine 1.40 H, Estimated Creat Clear 27, Estimated GFR 36 L, Est GFR ( Amer) 43 L, Glucose 84, Calcium 8.8, Total Bilirubin 0.4, AST 43 H, ALT 29, Alkaline Phosphatase 82, Total Protein 6.8, Albumin 3.9, Globulin 2.9, Albumin/Globulin Ratio 1.3 Orders (Tests/Meds): ED MEDICATIONS Generic Name Dose Route Start Last Admin Trade Name Freq PRN Reason Stop Dose Admin Sodium Chloride 10 ml 04/11/25 00:48 04/11/25 00:49 Sodium Chloride 0.9% 10ml Syr (Rad Only) IV 05/11/25 00:47 10 ml NEEDED PRN Administration Maintain IV Site Discontinued Medications Generic Name Dose Route Start Last Admin Trade Name Freq PRN Reason Stop Dose Admin Tranexamic Acid 1,000 mg/ 260 mls @ 520 mls/hr 04/10/25 23:33 04/11/25 00:12 Sodium Chloride TP 04/10/25 23:34 Not Given ONCE ONE Lactated Ringer's 1,000 mls @ 999 mls/hr 04/11/25 00:17 04/11/25 00:23 Lactated Ringer's 1000 Ml Bag IV 04/11/25 01:17 999 mls/hr .Q1H1M ONE Administration Iopamidol 120 ml 04/11/25 00:48 04/11/25 00:49 Iopamidol-370 (76%);100ml Bottle IV 04/11/25 00:49 120 ml ONCE ONE Administration Sodium Chloride 100 ml 04/11/25 00:48 04/11/25 00:49 0.9 % Sodium Chloride 50 Ml Vial IV 04/11/25 00:49 100 ml ONCE ONE Administration Tranexamic Acid 1,000 mg 04/11/25 00:15 04/11/25 00:11 Tranexamic Acid 1,000 Mg/10 Ml Vial TP 04/11/25 00:16 1,000 mg ONCE ONE Administration ORDERS Category Date Time Status CT angio abdomen/femoral Stat Cat Scan 04/10/25 22:29 Completed Hand XR left minimum 3 views [XR hand LT min 3V] Stat Exams 04/10/25 22:29 Completed Wrist XR left minimum 3 views [XR wrist LT min 3V] Stat Exams 04/10/25 22:29 Completed CBC w/Auto Diff [Complete Blood Count Auto Diff] Stat Lab 04/10/25 23:33 Completed CMP [Comprehensive Metabolic Panel] Stat Lab 04/10/25 23:33 Completed Prothrombin Time INR Stat Lab 04/10/25 23:33 Completed Medical Decision Narrative: Patient is an otherwise healthy 84-year-old female with a past medical history of A-fib on Xarelto as well as Plavix who presented to the emergency department with a left upper extremity injury. On arrival, patient was hemodynamically stable with unremarkable vital signs. Differential includes but not limited to: Skin tear, fracture, dislocation, sprain, strain, active extrav on hematoma, amongst others. Patient's labs were reviewed and interpreted by myself: CBC showed no leukocytosis, hemoglobin was stable. INR elevated at 1.61. CMP with elevated creatinine at 1.4 otherwise unremarkable. XR's were obtained of the [facility] and were reviewed and interpreted by myself and showed no acute fractures however final radiology read pending at the time of signout. Given concern for active extra of on the hematoma of the left lower extremity, CTA with runoff was obtained. Patient did not hit her head did not lose consciousness therefore CT imaging of the head was not obtained. Had no other bony tenderness therefore further CT imaging to evaluate for fractures or other acute pathology was not obtained x-rays as above. CTA pending at the time of signout. Patient was handed off to Dr. Simpson pending final CTA read as well as x-rays. Simpson: Upon my assumption of care patient is stable, well-appearing, and resting comfortably. I agree with the assessment and plan from Dr. Fuentes. Labs personally reviewed demonstrate mild leukopenia and anemia nonactionable at this time, hemoglobin is down to 9.9 from 11.0 2 days ago but all of her cell lines are decreased so I suspect some of this is concentration related. She does obviously have hematoma on the left hip as well as having slow oozing from the left hand so she could have lost some blood volume as well but she is not experiencing any symptoms from this so I do not believe we have to intervene on it at this time. The wound on the left hand is soaking in TXA at this time to create good clot and stop oozing. Her CTA also does not show active extravasation, see below. Prior to CTA I had an extensive discussion with the patient about her kidney function and the slight risk of contrast-induced nephropathy. Patient and family at bedside had good questions and we had a shared decision-making discussion about proceeding with a contrasted study or not. I expressed my concern for the possibility of hematoma with active extravasation which could be more immediately life-threatening than nephropathy. We discussed that if she has worsening of kidney function steadily she could end up on dialysis, but after thoughtful discussion, they would prefer to proceed with the CTA and fluids after to reduce the risk of nephropathy which I believe is a reasonable decision. CTA abdomen pelvis with runoff personally interpreted does not demonstrate obvious contrast extravasation into the soft tissue hematoma overlying the left hip. See radiology read for final interpretation. Radiology read does comment on bladder wall thickening, patient just recently finished treatment for urinary infection and is not having any urinary symptoms at this time. The bladder wall thickening is likely related to recent infection. Bowel wall thickening does not correlate clinically. The popliteal artery stenosis that is mentioned in the radiology read is not causing any vascular compromise distally. Patient has 2+ palpable DP and PT pulses bilaterally. Additional labs reviewed by me demonstrate mildly elevated PT/INR which are nonactionable at this time, CMP with kidney dysfunction. This is slightly worsened than prior but labs from February appear to demonstrate this has been a gradual decline. She does not have BOWEN. Since she received IV contrast IV fluids were started but after CTA, the IV had failed so patient rehydrated orally, drinking more than 24 ounces of water in the ER. She urinates adequately and passed urine multiple times prior to leaving the ER. Trace AST elevation has been present previously and is nonactionable. X-rays personally interpreted do not demonstrate acute osseous injury., See radiology read for final interpretation. I examined the left hand wound and initially planned to close it with Dermabond because it is a skin tear, but the flap of skin has been loose for more than 24 hours and is already becoming discolored so I do not think it will stay in place and that by manipulating it I will cause more bleeding. With the TXA in place we have achieved good hemostasis, there is only a scant amount of serosanguineous fluid at the wound site now. Because I am not going to cover and close the wound with Dermabond, Surgicel was applied over the wound and bulky dressing was applied. This seems to have achieved good hemostasis and with the results as documented above I believe she is appropriate for discharge at this time. Family and patient are comfortable with this plan. They were given instructions on wound care including maintenance of the bulky dressing, explicit follow-up instructions to be reevaluated by PCP and have recheck labs completed, and were given strict return precautions for the ER including continued bleeding or any other complaints or concerns. They indicated understanding and the patient was discharged in stable condition. Critical Care <Angela Fuentes, DO - Last Filed: 04/11/25 00:54> Critical Care Time Critical Care Time: No
[2025-04-10 22:14] VITALS: BP 157/66; PULSE 60; RESP 16; TEMP 36.7; O2SAT 98; BMI 23.2
--- OUTSIDE RECORDS SUMMARY | 2025-04-10 22:20 | XMS_ITS | Encounter Summary ---
Author Organization [employer] ([place], [place], [place], [place]) Address [address] [place] [address] Care Team Providers Care Ammonia Refrigeration Technician Name Role Phone Cate Frederick APRN Primary Care Provider [phone] Reason for Referral * Mammography (Routine) - Closed Specialty Diagnoses / Procedures Referred By Contac t Referred To Contact Diagnoses Visit for screening mammogram Procedures MM digital mammo screen bilateral Renee Cortés APRN [address] [address] Phone: tel: fax: Referral ID Status Reason Start Date Expiration Date Visits Re quested Visits Authorized [id number] Closed 05/06/2022 11/02/2022 1 1 Encounter Details Date Type Department Care Team (Late st Contact Info) Description 05/06/2022 Outside Orders [facility] Central Scheduling 1 [place] [id number] Renee Cortés FINANCIAL INVESTIGATOR [address] [address] Visit for screening mammogram (Primary Dx) Social History Tobacco Use Types Packs/Day Years Used Date Smoking Tobacco: Never Assessed Comments Unknown Sex and Gender Information Value Date Recorded Sex Assigned at Female 10/03/2023 9:11 AM INGREDIENT SPECIALIST Legal Sex Female 5:32 PM CDT Gender Identity Female 10/03/2023 9:11 AM INGREDIENT SPECIALIST Sexual Orientation Not on file documented as [...] distortion or clustered microcalcifications. us Renee Cortés FINANCIAL INVESTIGATOR IMG MAMMOGRAPHY ORDERABLES Final Result documented in this encounter Visit Diagnoses Diagnosis Visit for screening mammogram- Primary Visit for screening mammogram documented in this encounter Care Teams Ammonia Refrigeration Technician Relationship Specialty Start Date End Date Cate Frederick, FINANCIAL INVESTIGATOR [address] [place] [address] PCP - General Family Medicine 06/26/23 documented as of this encounter
--- OUTSIDE RECORDS SUMMARY | 2025-04-10 22:20 | XMS_ITS | Clinical Summary ---
Author Organization [employer] ([place], [place], [place], [place]) Address [address] [place] [address] Care Team Providers Care Criminal Attorney Name Role Phone Cate Frederick APRN Primary Care Provider + [phone] Allergies Active Allergy Reactions Criticality Noted Date [...] Date Esdras rded Speak language other than Bulgarian at home Not on file 08/27/2023 Want help with school or training Not on file 08/27/2023 Substance Use Answer Date Recorded Used prescription meds for non-medical reasons N ot on file 08/27/2023 Used illegal drugs past 12 months Not on file 08/27/2023 Comments No Sex and Gender Information Value Date Recorded Sex Assigned at Female 10/03/2023 9:11 AM BOILERHOUSE MECHANIC Legal Sex Female 5:32 PM CDT Gender Identity Female 10/03/2023 9:11 AM BOILERHOUSE MECHANIC Sexual Orientation Not on file Last Filed [...] 05/09/2020, 2017 Medical Devices Implanted Type Area Lens And Frames Prescription Clerk Device Identifier Shelf Expiration Date Model / Serial / Lot Iol Uv Clareon +20.5 [id number] - [id number] Implanted:Qty: 1 on 10/03/2023 by Ahmet oMhr MD at [facility] IMPLANTS Right: Eye JOJO 12/30/2024 [id number] / [id number] / Iol Uv Clareon +21.0 [id number] - [id number] Implanted:Qty: 1 on 10/24/2023 by Ahmet Mohr MD at [facility] IMPLANTS Left: Eye JOJO 04/02/2027 [id number] / [id number] / Stents Heart Description:X2 Insurance [place] [id number] [facility] AD[facility] Care Teams Criminal Attorney Relationship Specialty Start Date End Date Cate Frederick, ADMINISTRATIVE DIRECTOR [address] [place] [id number] PCP - General Family Medicine 06/26/23
--- OUTSIDE RECORDS SUMMARY | 2025-04-10 22:20 | XMS_ITS | Referral Summary ---
Author Organization [employer] ([place], [place], [place], [place]) Address [address] [place] [address] Care Team Providers Care Dewatering Filtering Supervisor Name Role Phone Cate Frederick APRN Primary Care Provider + [phone] Allergies Active Allergy Reactions Criticality Noted Date [...] Date Esdras rded Speak language other than Iranian at home Not on file 08/27/2023 Want help with school or training Not on file 08/27/2023 Substance Use Answer Date Recorded Used prescription meds for non-medical reasons N ot on file 08/27/2023 Used illegal drugs past 12 months Not on file 08/27/2023 Comments No Sex and Gender Information Value Date Recorded Sex Assigned at Female 10/03/2023 9:11 AM FIRE CONTROL ASSISTANT Legal Sex Female 5:32 PM CDT Gender Identity Female 10/03/2023 9:11 AM FIRE CONTROL ASSISTANT Sexual Orientation Not on file Last Filed [...] on file Medical Devices Implanted Type Area Executive Manager Device Identifier Shelf Expiration Date Model / Serial / Lot Iol Uv Clareon +20.5 [id number] - [id number] Implanted:Qty: 1 on 10/03/2023 by Ahmet Mohr MD at [facility] IMPLANTS Right: Eye JOJO 12/30/2024 [id number] / [id number] / Iol Uv Clareon +21.0 [id number] - [id number] Implanted:Qty: 1 on 10/24/2023 by Ahmet Mohr MD at [facility] IMPLANTS Left: Eye JOJO 04/02/2027 [id number] / [id number] Heart Description:X2 Insurance [place] [id number] [facility] AD[facility] Care Teams Dewatering Filtering Supervisor Relationship Specialty Start Date End Date Cate Frederick, SOCIAL WORK FACULTY MEMBER [address] [place] [address] PCP - General Family Medicine 06/26/23
--- OUTSIDE RECORDS SUMMARY | 2025-04-10 22:20 | XMS_ITS | Clinical Summary ---
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 11/12/2022 Dyspnea on [...] history exists Medical Devices Implanted Type Area Multiple Pressure Riveter Operator Device Identifier Shelf Expiration Date Model / Serial / Lot Bone Filler Void Cerament 10ml - [id number] Implanted:Qty: 1 on 10/30/2022 by Jg Natarajan Jr., MD at [facility] Implant Right: Hand BONE SUPPORT 03/18/2025 [id number] / / [id number] Plt Geminus Nrw 3h Rt - [id number] Implanted:Qty: 1 on 10/30/2022 by Jg Natarajan Jr., MD at [facility] Implant Right: Hand SKELETAL DYNAMICS [id number] / / Scrw Geminus Pa Nl Ti 3.5x12mm - [id number] Implanted:Qty: 1 on 10/30/2022 by Jg Natarajan Jr., MD at [facility] Implant Right: Hand SKELETAL DYNAMICS [id number] S / / Scrw Geminus Pa Nl 3ti .5x13mm - [id number] Implanted:Qty: 1 on 10/30/2022 by Jg Natarajan Jr., MD at [facility] Implant Right: Hand SKELETAL DYNAMICS [id number] S / / Peg Volr Geminus Smoth Lk Ti 2x16mm - [id number] Implanted:Qty: 1 on 10/30/2022 by Jg Natarajan Jr., MD at [facility] Implant Right: Hand SKELETAL DYNAMICS [id number] S / / Peg Volr Geminus Smoth Lk Ti 2x18mm - [id number] Implanted:Qty: 1 on 10/30/2022 by Jg Natarajan Jr., MD at [facility] Implant Right: Hand SKELETAL DYNAMICS [id number] S / / Peg Volr Geminus Smoth Lk Ti 2x21mm - [id number] Implanted:Qty: 1 on 10/30/2022 by Jg Natarajan Jr., MD at [facility] Implant Right: Hand SKELETAL DYNAMICS [id number] S / / Peg Volr Geminus Smoth Lk Ti 2x20mm - [id number] Implanted:Qty: 1 on 10/30/2022 by Jg Natarajan Jr., MD at [facility] Implant Right: Hand SKELETAL DYNAMICS [id number] S / / Peg Volr Geminus Smoth Lk Ti 2x17mm - [id number] Implanted:Qty: 1 on 10/30/2022 by Jg Natarajan Jr., MD at [facility] Implant Right: Hand SKELETAL DYNAMICS [id number] S / / Scrw Morgan Geminus Lk Ti 3.5x12mm - [id number] Implanted:Qty: 1 on 10/30/2022 by Jg Natarajan Jr., MD at [facility] Implant Right: Hand SKELETAL DYNAMICS [id number] S / / Peg Volr Geminus Smoth Lk Ti 2x19mm - [id number] Implanted:Qty: 1 on 10/30/2022 by Jg Natarajan Jr., MD at [facility] Implant Right: Hand SKELETAL DYNAMICS [id number] S / / Explanted Type Area Multiple Pressure Riveter Operator Device Identifier Shelf Expiration Date Model / Serial / Lot Kwire Std Tp [id number] - [id number] Explanted:Qty: 2 on 10/30/2022 at [facility] Implant Right: Hand SKELETAL DYNAMICS [id number] / / Kwire Std/Tp .2g569lg - [id number] Explanted:Qty: 2 on 10/30/2022 at [facility] Implant Right: Hand SKELETAL DYNAMICS [id number] / / Procedures Procedure Name Priority Date/Time Associated Diagnosis Comments HEMOGLOBIN A1C Routine 01/19/2023 5:29 AM EDT from Last 3 Months or Most Recently Relevant to Health Maintenance Results * (ABNORMAL) Hemoglobin A1c (01/19/2023 5:29 AM EDT) Hemoglobin A1C 5.70(H) 4.80 - 5.60 % 01/19/2023 9:49 AM EDT [facility] Blood Venipuncture / Unknown 01/19/2023 5:29 AM EDT 01/19/2023 7:07 AM EDT Narrative [facility] - 01/19/2023 9:49 AM EDT Hemoglobin A1C Ranges: Increased Risk for Diabetes 5.7% to 6.4% Diabetes >= 6.5% Diabetic Goal < 7.0% us Betzaida Musa NETWORK SECURITY ANALYST LAB BLOOD ORDERABLES Final Result [facility]
[address] [phone] from Last 3 Months or Most Recently [...] Of Support Discussed With: Patient Care Teams Dull Coat Mill Operator Relationship Specialty Start Date End Date Cate Frederick APRN [address] [place] [address] PCP - General Nurse Practitioner 10/25/22
--- OUTSIDE RECORDS SUMMARY | 2025-04-10 22:20 | XMS_ITS | Encounter Summary ---
Author Organization [facility] Address [address] [place] [address] Care Team Providers Care Downstream Biomanufacturing Technician Name Role Phone Cate Frederick APRN Primary Care Provider Encounter Details Date Type Department Care Team (Late st Contact Info) Description 03/05/2025 Telephone [facility] [address], [address] [place] [address] Dayana Tavera Social History Tobacco [...] Description 04/21/2025 2:20 PM EDT Office Visit [facility] [address], [address] [place] [address] Marylou Laughlin MD [address] [place] [address] documented as of this encounter [...] documented as of this encounter Care Teams Downstream Biomanufacturing Technician Relationship Specialty Start Date End Date Cate Frederick APRN [address] [place] [address] PCP - General 02/09/22 documented as of this encounter
--- OUTSIDE RECORDS SUMMARY | 2025-04-10 22:20 | XMS_ITS | Encounter Summary ---
Author Organization [facility] Address [address] [place] [address] Care Team Providers Care Storm Sash Maker Name Role Phone Cate Frederick APRN [...] Description 04/21/2025 2:20 PM EDT Office Visit [facility] [address], [address] [place] [address] Marylou Laughlin MD [address] [place] [address] documented as of this encounter [...] documented as of this encounter Care Teams Storm Sash Maker Relationship Specialty Start Date End Date aCte Frederick, MIGUEL [address] [place] [address] PCP - General 02/09/22 documented as of this encounter
--- OUTSIDE RECORDS SUMMARY | 2025-04-10 22:20 | XMS_ITS | Encounter Summary ---
Author Organization [facility] Address [address] [place] [address] Care Team Providers Care Allergist/Md Name Role Phone Cate Frederick APRN Primary Care Provider [phone] Reason for Visit * Reason Onset Date Comments HCN - Patient Message 03/11/2025 Missed jennifer l Encounter Details Date Type Department Care Team (Late st Contact Info) Description 03/11/2025 Telephone [facility] [address], [address] [place] [address] Mary Cross, STUDENT AFFAIRS VICE PRESIDENT [address] [place] [address] HCN - Patient Message (Missed [...] optimal time of day to reach caller: [phone] Note: Please do not reply to this [...] Description 04/21/2025 2:20 PM EDT Office Visit [facility] [address], [address] [place] [address] Marylou Laughlin MD [address] [place] [address] documented as of this encounter [...] documented as of this encounter Care Teams Allergist/Md Relationship Specialty Start Date End Date Cate Frederick APRN [address] [place] [address] PCP - General 02/09/22 documented as of this encounter
--- OUTSIDE RECORDS SUMMARY | 2025-04-10 22:20 | XMS_ITS | Encounter Summary ---
Author Organization [facility] Address [address] [place] [address] Care Team Providers Care Vegetable Cutter Name Role Phone Cate Frederick APRN Primary Care Provider Encounter Details Date Type Department Care Team (Late st Contact Info) Description 02/15/2025 Results [facility]-Up [facility] [address], [address] [place] [address] Mary Cross APRN [address] [place] [address] Social History Tobacco Use Types [...] Office Visit [facility] [address] [place] [address] Marylou Laughlin MD [address] [place] [address] documented as of this encounter [...] documented as of this encounter Care Teams Vegetable Cutter Relationship Specialty Start Date End Date Cate Fredercik, CHIEF OPERATOR HYDROFORMER [address] [place] [address] PCP - General 02/09/22 documented as of this encounter
--- OUTSIDE RECORDS SUMMARY | 2025-04-10 22:20 | XMS_ITS | Encounter Summary ---
Author Organization [facility] Address [address] [place] [address] Care Team Providers Care Discovery Manager Name Role Phone Cate Frederick APRN [...] Description 04/21/2025 2:20 PM EDT Office [facility] [address] [place] [address] Marylou Laughlin MD [address] [place] [address] documented as of this encounter [...] documented as of this encounter Care Teams Discovery Manager Relationship Specialty Start Date End Date Cate Frederick, MIGUEL [address] [place] [address] PCP - General 02/09/22 documented as of this encounter
--- OUTSIDE RECORDS SUMMARY | 2025-04-10 22:20 | XMS_ITS | Encounter Summary ---
Author Organization [employer] ([place], [place], [place], [place]) Address [address] [place] [address] Care Team Providers Care Cook Italian Style Food Name Role Phone Cate Frederick APRN Primary Care Provider [phone] Reason for Referral * Mammography (Routine) - New Request Specialty Diagnoses / Procedures Referred By Contac t Referred To Contact Diagnoses Other screening mammogram Procedures MM digital mammo screen with dayana bilateral Cate Frederick APRN [address] [place] [address] Phone: tel: fax: Referral ID Status Reason Start Date Expiration Date V isits Requested Visits Authorized [id number] New Request 06/19/2024 06/19/2025 1 1 Encounter Details Date Type Department Care Team (Late st Contact Info) Description 06/19/2024 Outside Orders [facility] Central Scheduling 1 [place] [address] Cate Frederick APRN [address] [place], [place] [id number] Other screening mammogram (Primary Dx) Social History [...] Date Esdras rded Speak language other than Nigerian at home Not on file 08/27/2023 Want help with school or training Not on file 08/27/2023 Substance Use Answer Date Recorded Used prescription meds for non-medical reasons N ot on file 08/27/2023 Used illegal drugs past 12 months Not on file 08/27/2023 Comments No Sex and Gender Information Value Date Recorded Sex Assigned at Female 10/03/2023 9:11 AM ANDROID DEVELOPER Legal Sex Female 5:32 PM CDT Gender Identity Female 10/03/2023 9:11 AM ANDROID DEVELOPER Sexual Orientation Not on file documented [...] areas of focal mammographic concern. Cate Frederick STRAIGHTEDGE WORKER IMG MAMMOGRAPHY ORDERABLES F inal Result documented in this encounter Visit Diagnoses Diagnosis Other screening mammogram- Primary Other screening mammogram documented in this encounter Care Teams Cook Italian Style Food Relationship Specialty Start Date End Date Cate Frederick, STRAIGHTEDGE WORKER [address] [place] [address] PCP - General Family Medicine 06/26/23 documented as of this encounter
--- OUTSIDE RECORDS SUMMARY | 2025-04-10 22:20 | XMS_ITS | Encounter Summary ---
Author Organization [facility] Address [address] [place] [address] Care Team Providers Care Medical Records Tech Name Role Phone Cate Frederick APRN Primary Care Provider [phone] Encounter Details Date Type Department Care Team [...] Office Visit [facility] [address] [place] [address] Marylou Laughlin MD [address] [place] [address] documented as of this encounter [...] as of this encounter Care Teams Medical Records Tech Relationship Specialty Start Date End Date Cate Frederick, MIGUEL [address] [place] [address] PCP - General 02/09/22 documented as of this encounter
--- OUTSIDE RECORDS SUMMARY | 2025-04-10 22:20 | XMS_ITS | Encounter Summary ---
Author Organization [facility] Address [address] [place] [address] Care Team Providers Care Through Freight Engineer Name Role Phone Cate Frederick APRN Primary Care Provider [phone] Encounter Details Date Type Department Care Team (Late st Contact Info) Description 03/01/2025 Results Follow-Up [facility] [facility] [address] [place] [address] Soha Gomez APRN, DNP [address] [place] [address] Social History Tobacco Use Types [...] Description 04/21/2025 2:20 PM EDT Office Visit [facility] [facility] [address] [place] [address] Marylou Laughlin MD [address] [place] [address] documented as of this encounter [...] documented as of this encounter Care Teams Through Freight Engineer Relationship Specialty Start Date End Date Cate Frederick, MIGUEL [address] [place] [address] PCP - General 02/09/22 documented as of this encounter
--- OUTSIDE RECORDS SUMMARY | 2025-04-10 22:20 | XMS_ITS | Encounter Summary ---
Author Organization [facility] Address [address] [place] [address] Care Team Providers Care Circuit Rider Name Role Phone Cate Frederick APRN Primary [...] Office Visit [place] [facility] [address] [place] [address] Marylou Laughlin MD [address] [place] [address] documented as of this encounter [...] documented as of this encounter Care Teams Circuit Rider Relationship Specialty Start Date End Date Cate Frederick, MIGUEL [address] [place] [address] PCP - General 02/09/22 documented as of this encounter
--- OUTSIDE RECORDS SUMMARY | 2025-04-10 22:20 | XMS_ITS | Encounter Summary ---
Author Organization [facility] Address [address] [place] [address] Care Team Providers Care Radar Air Traffic Controller Name Role Phone Cate Frederick APRN Primary Care Provider [phone] Encounter Details Date Type Department Care Team [...] Description 04/21/2025 2:20 PM EDT Office Visit [place] [facility] [address], [address] [place] [address] Marylou Laughlin MD [address] [place] [address] documented as of this encounter [...] documented as of this encounter Care Teams Radar Air Traffic Controller Relationship Specialty Start Date End Date Cate Frederick APRN [address] [place] [address] PCP - General 02/09/22 documented as of this encounter
--- OUTSIDE RECORDS SUMMARY | 2025-04-10 22:20 | XMS_ITS | Encounter Summary ---
Author Organization [employer] ([place], [place], [place], [place]) Address [address] [place] [address] Care Team Providers Care Children'S Tutor Nursery Name Role Phone Cate Frederick APRN Primary Care Provider [phone] Reason for Referral * Mammography (Routine) - Closed Specialty Diagnoses / Procedures Referred By Contac t Referred To Contact Diagnoses Visit for screening mammogram Procedures MM digital mammo screen bilateral Cate Frederick APRN [address] [place] [address] Phone: tel: fax: Referral ID Status Reason Start Date Expiration Date Visits Re quested Visits Authorized [id number] Closed 06/06/2023 12/03/2023 1 1 Encounter Details Date Type Department Care Team (Late st Contact Info) Description 06/06/2023 Outside Orders [facility] Central Scheduling 1 [place] [address] Cate Frederick APRN [address] [place] [id number] Visit for screening mammogram (Primary Dx) Social [...] Date Esdras rded Speak language other than [place] Zealander at home Not on file 08/27/2023 Want help with school or training Not on file 08/27/2023 Substance Use Answer Date Recorded Used prescription meds for non-medical reasons N ot on file 08/27/2023 Used illegal drugs past 12 months Not on file 08/27/2023 Comments Unknown Sex and Gender Information Value Date Recorded Sex Assigned at Female 10/03/2023 9:11 AM FERTILIZER LOADER Legal Sex Female 5:32 PM CDT Gender Identity Female 10/03/2023 9:11 AM FERTILIZER LOADER Sexual Orientation Not on file COVID-19 Exposure [...] the next mammogram. At our facility, a huslia marker is positioned over a visible skin [...] family history of breast cancer COMPARISON STUDY: [facility] FINDINGS: Craniocaudal and mediolateral oblique images [...] mammogram documented in this encounter Care Teams Children'S Tutor Nursery Relationship Specialty Start Date End Date Cate Frederick, INDUSTRIAL RELATIONS REPRESENTATIVE [address] [place] [address] PCP - General Family Medicine 06/26/23 documented as of this encounter
--- OUTSIDE RECORDS SUMMARY | 2025-04-10 22:20 | XMS_ITS | Encounter Summary ---
Author Organization [facility] Address [address] [place] [address] Care Team Providers Care Technical Services Manager Name Role Phone Cate Frederick APRN Primary Care Provider [phone] Reason for Visit * Reason Onset Date Comments HCN - Patient Message 02/02/[address] Encounter Details Date Type Department Care Team (Late st Contact Info) Description 02/02/2025 Telephone [facility] [address] [place] [address] Mary Cross TIME BROKER [address] [place] [address] HCN - Patient Message (Call [...] patient earlier on 02/18/2025 at 11:00 am. [facility]. KJa * Telephone Encounter - Phuong Brooks - 02/02/2025 3:46 PM EDT Void--pt has been scheduled with MR. Does not need rec for IC * Telephone Encounter - Gracia Valadez - 02/02/2025 12:00 PM EDT Patient Phone Message Reason for Call: [facility] (PCP) requesting a return call to discuss recommendations on where pt could be seenfor Interstitial Cystitis Best contact number and optimal time of day to reach caller: [phone] Kaci Note: Please do not reply to [...] Office Visit [facility] [address] [place] [address] Marylou Laughlin MD [address] [place] [address] documented as of this [...] documented as of this encounter Care Teams Technical Services Manager Relationship Specialty Start Date End Date Cate Frederick APRN [address] [place] [address] PCP - General 02/09/22 documented as of this encounter
--- OUTSIDE RECORDS SUMMARY | 2025-04-10 22:20 | XMS_ITS | Encounter Summary ---
Author Organization [facility] Address [address] [place] [address] Care Team Providers Care Loan Auditor Name Role Phone Cate Frederick APRN Primary Care Provider Reason for Visit * Reason Onset Date Comments HCN Clinical Concern/Question 03/09/2025 Encounter Details Date Type Department Care Team (Late st Contact Info) Description 03/09/2025 Telephone [place] [facility] [address], [address] [place] [address] Mary Cross APRN [address] [place] [address] HCN Clinical Concern/Question Social History [...] with info. Thank you Best contact number: [phone] (mobile) Optimal time of day to reach caller: ANYTIME Additional comments/information from caller: None Note: Please do not reply to this message. Follow-up communication and further actions as a result of this message need to be communicated with the patient directly, if the patient is not active onMyChart. If the patient is active on MyChart, they will receive notification of the communication/outcome via [email or web address]. documented in this encounter Plan of Treatment Upcoming Encounters Date Type Department Care Team (Late st Contact Info) Description 04/21/2025 2:20 PM EDT Office Visit [place] [facility] [address], 2[address] [place] [address] Marylou Laughlin MD [address] [place] [address] documented as of this encounter [...] as of this encounter Care Teams Loan Auditor Relationship Specialty Start Date End Date Cate Frederick, MIGUEL [address] [place] [address] PCP - General 02/09/22 documented as of this encounter
--- OUTSIDE RECORDS SUMMARY | 2025-04-10 22:20 | XMS_ITS | Encounter Summary ---
Author Organization [facility] Address [address] [place] [address] Care Team Providers Care Victims Advocate Clerk/Specialist Name Role Phone Cate Frederick APRN Primary Care Provider [phone] Encounter Details Date Type Department Care Team [...] Office Visit [place] [facility] [address], 2[address] [place] [address] Marylou Laughlin MD [address] [place] [address] documented as of this encounter [...] documented as of this encounter Care Teams Victims Advocate Clerk/Specialist Relationship Specialty Start Date End Date Cate Frederick, MIGUEL [address] [place] [address] PCP - General 02/09/22 documented as of this encounter
--- OUTSIDE RECORDS SUMMARY | 2025-04-10 22:20 | XMS_ITS | Encounter Summary ---
Author Organization [facility] Address [address] [place] [address] Care Team Providers Care Mandarin Chinese Teacher Name Role Phone Cate Frederick APRN Primary [...] Description 04/21/2025 2:20 PM EDT Office Visit [place] [facility] [address], 2nd [place] [address] Marylou Laughlin MD [address] [place] [address] documented as of this encounter [...] documented as of this encounter Care Teams Mandarin Chinese Teacher Relationship Specialty Start Date End Date Cate Frederick, MIGUEL [address] [place] [address] PCP - General 02/09/22 documented as of this encounter
--- OUTSIDE RECORDS SUMMARY | 2025-04-10 22:20 | XMS_ITS | Encounter Summary ---
Author Organization Healthcare Address [address] [place] [address] Care Team Providers Care Public Safety Police Name Role Phone Cate Frederick APRN Primary Care Provider Encounter Details Date Type Department Care Team (Late st Contact Info) Description 02/16/2025 Orders Only [place] [facility] [address], 2[address] [place] [address] Mary Cross APRN [address] [place] [address] Radha glabrata infection (Primary Dx); [...] Office Visit [place] [facility] [address], [address] [place] [address] Marylou Laughlin MD [address] [place] [address] documented as of this encounter [...] documented as of this encounter Care Teams Public Safety Police Relationship Specialty Start Date End Date Cate Frederick APRN [address] [place] [address] PCP - General 02/09/22 documented as of this encounter
--- OUTSIDE RECORDS SUMMARY | 2025-04-10 22:20 | XMS_ITS | Encounter Summary ---
Author Organization [facility] Address [address] [place] [address] Care Team Providers Care Concrete Placement Equipment Operator Name Role Phone Cate Frederick APRN Primary Care Provider [phone] Encounter Details Date Type Department Care Team [...] Office Visit [place] [facility] [address], [address] [place] [address] Marylou Laughlin MD [address] [place] [address] documented as of this encounter [...] documented as of this encounter Care Teams Concrete Placement Equipment Operator Relationship Specialty Start Date End Date Cate Frederick, MIGUEL [address] [place] [address] PCP - General 02/09/22 documented as of this encounter
--- OUTSIDE RECORDS SUMMARY | 2025-04-10 22:21 | XMS_ITS | Clinical Summary ---
Author Organization [facility] Address [address] [place] [address] Care Team Providers Care Florist'S Decorator Name Role Phone Cate Frederick APRN Primary [...] Department Care Team Description 03/12/2025 Orders Only [facility] [address], [address]nd [place] [address] Mary Cross APRN Candiduria (Primary Dx); Radha glabrata infection 03/11/2025 Telephone [facility] [address], [address]nd [place] [address] Mary Cross APRN HCN - Patient Message (Missed call ) 03/09/2025 Telephone [facility] [address] [facility] [place] [address] Mary Cross APRN HCN Clinical Concern/Question 03/05/2025 Telephone [facility] [address], [facility] [place] [address] Dayana Tavera 03/01/2025 Results Follow-Up [facility] [address], [facility] [place] [address] Soha Gomez APRN, DNP 02/26/2025 1:15 PM EDT Clinical Support [facility] [address], [facility] [place] [address] Chelsea Cole LPN Candiduria (Primary Dx) 02/26/2025 Travel 02/25/2025 1:15 PM EDT Clinical Support [facility] [address], [facility] [place] [address] Marek Bello Candiduria (Primary Dx); Radha glabrata infection 02/25/2025 Travel 02/24/2025 1:30 PM EDT Clinical Support [facility] [address], [facility] [place] [address] Germaine Francisco LPN Recurrent UTI (Primary Dx) 02/24/2025 Travel 02/23/2025 1:15 PM EDT Clinical Support [facility] [address], [facility] Floor [facility] [place] [address] Chelsea Cole LPN Radha glabrata infection (Primary Dx) 02/23/2025 Travel 02/22/2025 1:15 PM EDT Clinical Support [facility] [address], [facility] [place] [address] Chelsea Cole LPN Radha glabrata infection (Primary Dx) 02/22/2025 Travel 02/18/2025 11:00 AM EDT Procedure Visit [facility] [address], [address]nd [place] [address] Chelsea Cole LPN Radha glabrata infection (Primary Dx) 02/18/2025 Travel 02/17/2025 9:40 AM EDT Procedure Visit [facility] [address], [facility] [place] [address] Mary Cross APRN Candiduria (Primary Dx); Radha glabrata infection 02/17/2025 Travel 02/16/2025 Orders Only [facility] [address] [place] [address], [facility] [place] [address] Mary Cross APRN Radha glabrata infection (Primary Dx); Candiduria 02/15/2025 Results Follow-Up [facility] [address] [place] [address], [address] [place] [address] Mary Cross APRN 02/11/2025 10:20 AM EDT Office Visit [facility] [address] [place] [address], [facility] [place] [address] Mary Cross APRN Recurrent UTI (Primary Dx); Bladder pain; Chronic ulcerating interstitial cystitis 02/11/2025 Travel 02/02/2025 Telephone [facility] [address] [place] [address] Mary Cross APRN HCN - Patient [...] Office Visit [place] [facility] [address], [address] [place] [address] Marylou Laughlin MD [address] [place] [address] Health Maintenance Due Date Last Done Comments [facility]-Bone Density Scan 1940 [facility]-Medicare Annual Wellness (AWV) 1940 [facility]-Infant/Child/Adol SDOH Screenings 1940 [facility]- SDOH Screenings 1958 [facility]-Adult SDOH Screenings 1958 [facility]-DTaP,Tdap,and Td Vaccines (1 - Tdap) 1959 [facility]-Zoster Vaccines (1 of 2) 1990 [facility]-RSV Vaccine: 60+ Years or (1 - 1-dose 75+ series) 2015 [facility]-Pneumococcal Vaccine: 50+ Years (2 of 2 - PCV) 06/10/2020 06/10/2019 [facility]-ATFPV-20 Vaccine (5 - season) 2024 03/29/2022, 04/27/2021, [...] Cross APRN LAB URINE ORDERABLES Final Result [facility] [address] [place] [address] * (ABNORMAL) Fungal Culture, Routine (02/23/2025 1:48 PM EDT) Only the most recent of2 resultswithin the time period is included. Culture Heavy Growth Radha glabrata(A) 03/03/2025 9:36 AM EDT [facility] Comment: This isolate has been identified using the FDA Approved [employer] [place] System Edited result: Previously reported as Yeast on 02/26/2025 at 0938 EDT. Urine Urine specimen obtained by clean catch procedure / Unknown Non-blood Collection / Unknown 02/23/2025 1:48 PM EDT 02/23/2025 4:41 PM EDT us Mary Cross APRN LAB MICROBIOLOGY - GENERAL ORDERABLES Final Result Performing Organization Address City/[facility] [place] [address] * Urine Culture (02/23/2025 1:48 PM EDT) Only the most recent of2 resultswithin the time period is included. Culture No growth at day 1 02/25/2025 11:16 AM EDT [facility] Urine Urine specimen obtained by clean catch procedure / Unknown Non-blood Collection / Unknown 02/23/2025 1:48 PM EDT 02/23/2025 4:41 PM EDT us Mary Cross APRN LAB MICROBIOLOGY - GENERAL ORDERABLES Final Result Performing Organization Address City/[facility]/ZIP Co de Phone Number [facility] [address] [place] [address] * (ABNORMAL) POCT URINALYSIS DIPSTICK (02/17/2025 9:56 AM EDT) Only the most recent of2 resultswithin the time period is included. POCT Urine Color Yellow 02/17/2025 9:58 AM EDT [facility] POCT Urine Clarity Clear 02/17/2025 9:58 AM EDT [facility] POCT Urine Glucose >=1000(A) Negative mg/dL 02/17/2025 9:58 AM EDT [facility] POCT Urine Bilirubin Negative Negative mg/dL 02/17/2025 9:58 AM EDT [facility] POCT Urine Ketones Trace(A) Negative mg/dL 02/17/2025 9:58 AM EDT [facility] POCT Urine Specific [place] 1.025 1.005 - 1.030 02/17/2025 9:58 AM EDT [facility] POCT Urine Blood Large(A) Negative 02/17/2025 9:58 AM EDT [facility] POCT pH, Urine 5.5 5.0 - 8.0 02/17/2025 9:58 AM EDT [facility]OLOG POCT Protein, Urine >=300(A) Negative mg/dL 02/17/2025 9:58 AM EDT [facility] POCT Urobilinogen, Urine 0.2 0.2, 1.0 EU/dL 02/17/2025 9:58 AM EDT [facility] POCT Nitrite, Urine Negative Negative 02/17/2025 9:58 AM EDT [facility] POCT Urine Leukocyte Esterase Small(A) Negative 02/17/2025 9:58 AM EDT [facility] Urine 02/17/2025 9:56 AM EDT 02/17/2025 9:58 AM EDT us Mary Cross APRN LAB POINT OF CARE TEST DOCKED DEVICE UNSOLICITED RESULTS Final Result Performing Organization Address [facility]/State/[facility] de Phone Number [facility] [address], [place] * POC US Bladder Volume (02/11/2025 10:35 AM EDT) Urine, Volume 1 mL IMAGING Anatomical Region Laterality Modality Other us Mary Cross APRN IMG POINT OF CARE ULTRASOU ND Final Result from Last 3 Months Insurance [employer] MEDICARE Care Teams Florist'S Decorator Relationship Specialty Start Date End Date Cate Frederick, MIGUEL [address] [place] [address] PCP - General 02/09/22
--- OUTSIDE RECORDS SUMMARY | 2025-04-10 22:21 | XMS_ITS | Encounter Summary ---
Author Organization [facility] Address [address] [place] [address] Care Team Providers Care Headwaitress Name Role Phone Cate Frederick APRN Primary Care Provider [phone] Reason for Referral * Consultation (Routine) - Authorized Specialty Diagnoses / Procedures Referred By Ольга t Referred To Contact Infectious Diseases Diagnoses Candiduria Radha glabrata infection Mary Cross APRN [address] [address] Phone: tel: fax: Referral ID Status Reason Start Date Expiration Date Visits Requested Visits Authorized [id number] Authorized Specialty Services Required 03/12/2025 09/11/2026 1 1 Encounter Details Date Type Department Care Team (Late st Contact Info) Description 03/12/2025 Orders Only [place] [facility] [address], [address]nd [place] [address] Mary Cross APRN [id number] [place] [address] Candiduria (Primary Dx); Radha glabrata [...] - 03/12/2025 8:45 AM EDT Referred to [facility] for no change in symptoms with ampho B instillations documented in this encounter Plan of Treatment Upcoming Encounters Date Type Department Care Team (Late st Contact Info) Description 04/21/2025 2:20 PM EDT Office Visit [facility] [address], [address] [place] [address] Marylou Laughlin MD [address] [place] [address] Scheduled Referrals Name Type Priority Associated Diagnoses [...] documented as of this encounter Care Teams Headwaitress Relationship Specialty Start Date End Date Cate Frederick APRN [address] [place] [address] PCP - General 02/09/22 documented as of this encounter
--- NOTE | 2025-04-10 22:29 | CT_ITS ---
PROCEDURE INFORMATION: Exam: CTA Abdominal Aorta and Bilateral Lower Extremities (Run-off) With Contrast Exam date and time: 04/11/2025 12:21 AM Age: 84 years old Clinical indication: Injury or trauma; Fall; Blunt trauma; Upper leg; Left; Additional info: Left thigh hematoma, eval for extrav TECHNIQUE: Imaging protocol: Computed tomographic angiography of the of the abdominal aorta, pelvis and bilateral lower extremities with contrast. 3D rendering (Not supervised by radiologist): MIP and/or 3D reconstructed images were created by the technologist. Radiation optimization: All CT scans at this facility use at least one of these dose optimization techniques: automated exposure control; mA and/or kV adjustment per patient size (includes targeted exams where dose is matched to clinical indication); or iterative reconstruction. Contrast material: ISOUVE 370; Contrast volume: 120 ml; Contrast route: INTRAVENOUS (IV); COMPARISON: CT ABDOMEN PELVIS W CON 01/21/2025 10:14 AM FINDINGS: Aorta: No aortic aneurysm. No aortic dissection. Celiac trunk and mesenteric arteries: Moderate stenosis of the origin of the celiac trunk. Renal arteries: Kasp-ck-jtyodyby stenosis of the proximal right renal artery. Right iliac arteries: No occlusion or significant stenosis. Right femoral/popliteal arteries: Multiple mild stenoses of the right superficial femoral artery. Moderate right popliteal arterial stenosis image 309 series 5. Right infrapopliteal arteries: No occlusion or significant stenosis. Left iliac arteries: No occlusion or significant stenosis. Left femoral/popliteal arteries: No occlusion or significant stenosis. Left infrapopliteal arteries: No occlusion or significant stenosis. Lungs: Mild scarring and atelectasis in the lower lungs. Heart: Cardiomegaly. Mitral and aortic valve calcifications. Coronary arteries: Coronary artery calcifications. Liver: Irregular surface of the liver suggesting underlying cirrhosis. Gallbladder and biliary ducts: Unremarkable. No calcified stones. No ductal dilation. Pancreas: Mild to moderate pancreatic atrophy. Spleen: Cystic splenic lesion of doubtful clinical significance. Adrenal glands: Normal. No mass. Kidneys and ureters: Normal. No mass. Stomach and bowel: Duodenal diverticula. Bowel wall thickening and enhancement of segments of small bowel. Severe sigmoid diverticulosis without diverticulitis. Postsurgical changes around the gastroesophageal junction. Appendix: No evidence of appendicitis. Urinary bladder: Nonspecific urinary bladder wall thickening. Reproductive: Status post hysterectomy. Intraperitoneal space: Unremarkable. No free air. No significant fluid collection. Lymph nodes: No lymphadenopathy. Bones/joints: The lumbar spine demonstrates moderate degenerative changes at multiple levels. Right popliteal cyst. Soft tissues: Hematoma in the soft tissues overlying the lateral aspect of the left hip. No active contrast extravasation. Moderate-sized fat containing anterior abdominal wall hernia. Tiny fat containing umbilical hernia. There is a healed anterior abdominal wall incision. IMPRESSION: 1. Hematoma in the soft tissues overlying the lateral aspect of the left hip. No active contrast extravasation. 2. Nonspecific urinary bladder wall thickening. Please exclude infection. 3. Bowel wall thickening and enhancement of segments of small bowel. Please exclude enteritis. 4. Moderate right popliteal arterial stenosis image 309 series 5.
--- NOTE | 2025-04-10 22:29 | XR_ITS ---
PROCEDURE INFORMATION: Exam: XR Left Wrist Exam date and time: 04/11/2025 12:35 AM Age: 84 years old Clinical indication: Injury or trauma; Fall; Blunt trauma (contusions or hematomas); Hand; Left; Additional info: Fall, hand tenderness TECHNIQUE: Imaging protocol: Radiologic exam of the left wrist. Views: 3 or more views. COMPARISON: CR XR HAND LT MIN 3V 04/11/2025 12:35 AM FINDINGS: Bones/joints: No acute fracture or dislocation. Soft tissues: Normal. IMPRESSION: No acute fracture or dislocation.
--- NOTE | 2025-04-10 22:29 | XR_ITS ---
PROCEDURE INFORMATION: Exam: XR Left Hand Exam date and time: 04/11/2025 12:35 AM Age: 84 years old Clinical indication: Injury or trauma; Fall; Blunt trauma (contusions or hematomas); Hand; ; Additional info: Fall, hand tenderness TECHNIQUE: Imaging protocol: Radiologic exam of the left hand. Views: 3 or more views. COMPARISON: CR XR WRIST LT MIN 3V 04/11/2025 12:35 AM FINDINGS: Bones/joints: No acute fracture or dislocation. Soft tissues: Normal. IMPRESSION: No acute fracture or dislocation.
[2025-04-10 22:32] VITALS: BP 132/56; PULSE 61; O2SAT 98
[2025-04-10 23:01] VITALS: BP 141/62; PULSE 60; O2SAT 99
[2025-04-10 23:40] LABS: Hematocrit 32.1 % (37.0-47.0); Hemoglobin 9.9 g/dL (12.2-16.2); Immature Granulocytes % 0.2 %; Mean Corpuscular HGB Conc 30.8 g/dL (31.8-35.4); Mean Corpuscular Hemoglobin 26.4 pg (27.0-31.2); Mean Corpuscular Volume 85.6 fl (81-99); Nucleated Red Blood Cells % 0 %; Platelet Count 166 K/mm3 (142-424); Red Blood Count 3.75 M/mm3 (4.20-5.40); Red Cell Distribution Width-SD 77.0 fL; White Blood Count 4.5 K/mm3 (4.8-10.8)
[2025-04-10 23:54] LABS: INR 1.61 (0.9-1.1); Prothrombin Time 17.3 seconds (10.1-12.5)
[2025-04-10 23:58] LABS: Alanine Aminotransferase 29 U/L (12-78); Albumin Level 3.9 g/dl (3.5-5.0); Albumin/Globulin Ratio 1.3 (1.1-1.8); Alkaline Phosphatase 82 U/L (38-126); Anion Gap 11.2 mEq/L (5-15); Aspartate Amino Transferase 43 U/L (14-36); Bilirubin,Total 0.4 mg/dl (0.2-1.3); Blood Urea Nitrogen 19 mg/dl (7-17); Calcium 8.8 mg/dl (8.4-10.2); Carbon Dioxide 27 mmol/L (22.0-30.0); Chloride 106 mmol/L (98-107); Creatinine Clearance Estimated 27 mL/min (50-200); Creatinine,Serum 1.40 mg/dl (0.52-1.04); Estimated Glomerular Filt Rate 36 ml/min (>60); GFR (African American) 43 ML/MIN (>60); Globulin 2.9 g/dL (1.3-3.2); Glucose 84 mg/dl (74-100); Potassium 4.2 mmoL/L (3.5-5.1); Sodium 140 mmol/L (136-145); Total Protein,Serum 6.8 g/dl (6.3-8.2)
[2025-04-11] MEDS: TRANEXAMIC ACID 1,000 MG/10 ML VIAL 1000 MG TP (00:11)
[2025-04-11 00:20] VITALS: BP 138/110; PULSE 61; O2SAT 97
[2025-04-11] MEDS: LACTATED RINGERS 1000ML 1,000 ML 999 ML IV (00:23)
[2025-04-11] MEDS: IOPAMIDOL-370 (76%);100ML BOTTLE 120 ML IV (00:49)
[2025-04-11] MEDS: 0.9 % SODIUM CHLORIDE 50 ML VIAL 100 ML IV (00:49)
[2025-04-11] MEDS: SODIUM CHLORIDE 0.9% 10ML SYR (RAD ONLY) 10 ML IV (00:49)
[2025-04-11 01:01] VITALS: BP 107/85; PULSE 66; O2SAT 97
[2025-04-11 01:44] VITALS: BP 167/63; PULSE 60; RESP 18; TEMP 36.9; O2SAT 99
== END 2025-04-11 02:06 | disposition home or self-care (01) ==
PROVIDERS: Emergency Provider Student in an Organized Health Care Education/Training Program; PCP Nurse Practitioner Family
DX: S61.412A Laceration without foreign body of left hand, initial encounter (principal); D64.9 Anemia, unspecified; I70.209 Unspecified atherosclerosis of native arteries of extremities, unspecified extremity; F17.210 Nicotine dependence, cigarettes, uncomplicated; W19.XXXA Unspecified fall, initial encounter
CPT/HCPCS: 73110; 73130; 75635; 80053; 85025; 85610; 96360; 99284; 99285; J7120; Q9967

== ENCOUNTER 2025-04-13 10:55 | Outpatient (CLI) | payer MEDICARE, SELFPAY ==
--- OUTSIDE RECORDS SUMMARY | 2025-02-17 09:40 | XMS_ITS | Encounter Summary ---
Author Organization [facility] Address [address] [place] [address] Care Team Providers Care Heavy Equipment Diesel Mechanic Name Role Phone Cate Frederick APRN Primary Care Provider Reason for Visit * Reason Comments Cystitis Encounter Details Date Type Department Care Team (Latest Contact Info) Description 02/17/2025 9:40 AM EDT Procedure Visit [place] [facility] [address], [address] [place] [address] Mary Cross APRN [address] [place] [address] Candiduria (Primary Dx); Megan glabrata [...] Notes * Progress Notes - Mary Cross, ANIMAL RESCUER - 02/17/2025 9:40 AM EDT [facility] Urology Clinic Note 02/17/25 CC: No [...] Trace (A) Negative mg/dL POCT Urine Specific [place] 1.025 1.005 - 1.030 POCT Urine Blood [...] Ketones Negative Negative mg/dL POCT Urine Specific [place] >=1.030 1.005 - 1.030 POCT Urine Blood [...] Trace (A) Negative mg/dL POCT Urine Specific [place] 1.025 1.005 - 1.030 POCT Urine Blood [...] Description 04/21/2025 2:20 PM EDT Office Visit [facility] Urology [address] [place] [address] Marylou Laughlin MD [address] [place] [address] documented as of this encounter Procedures Procedure Name Priority Date/Time Associated Diagnosis Comments POCT URINALYSIS DIPSTICK Routine 02/17/2025 9:56 AM EDT documented in this encounter Results * (ABNORMAL) POCT URINALYSIS DIPSTICK (02/17/2025 9:56 AM EDT) POCT Urine Color Yellow 02/17/2025 9:58 AM EDT [facility] POCT Urine Clarity Clear 02/17/2025 9:58 AM EDT [facility] POCT Urine Glucose >=1000(A) Negative mg/dL 02/17/2025 9:58 AM EDT [facility] POCT Urine Bilirubin Negative Negative mg/dL 02/17/2025 9:58 AM EDT [facility] POCT Urine Ketones Trace(A) Negative mg/dL 02/17/2025 9:58 AM EDT [facility] POCT Urine Specific [place] 1.025 1.005 - 1.030 02/17/2025 9:58 AM EDT [facility] POCT Urine Blood Large(A) Negative 02/17/2025 9:58 AM EDT [facility] POCT pH, Urine 5.5 5.0 - 8.0 02/17/2025 9:58 AM EDT [facility] POCT Protein, Urine >=300(A) Negative mg/dL 02/17/2025 9:58 AM EDT [facility] POCT Urobilinogen, Urine 0.2 0.2, 1.0 EU/dL 02/17/2025 9:58 AM EDT [facility] POCT Nitrite, Urine Negative Negative 02/17/2025 9:58 AM EDT [facility] POCT Urine Leukocyte Esterase Small(A) Negative 02/17/2025 9:58 AM EDT [facility] Urine 02/17/2025 9:56 AM EDT 02/17/2025 9:58 AM EDT us Mary Cross APRN LAB POINT OF CARE TEST DOCKED DEVICE UNSOLICITED RESULTS Final Result [facility] [address], [place] documented in this encounter Visit Diagnoses [...] documented as of this encounter Care Teams Heavy Equipment Diesel Mechanic Relationship Specialty Start Date End Date Cate Frederick APRN [address] [place] [address] PCP - General 02/09/22 documented as of this encounter
--- OUTSIDE RECORDS SUMMARY | 2025-02-18 11:00 | XMS_ITS | Encounter Summary ---
Author Organization [facility] Address [address] [place] [address] Care Team Providers Care Painter And Body Work Name Role Phone Cate Frederick APRN Primary Care Provider Reason for Visit * Reason Comments Bladder Instillation Encounter Details Date Type Department Care Team (Latest Contact Info) Description 02/18/2025 11:00 AM EDT Procedure Visit [facility] [address], [address] [place] [address] [place] Cole LPN [facility] Megan glabrata infection (Primary [...] Cross APRN - 02/18/2025 11:00 AM EDT [facility] Note 02/18/25 CC: No chief [...] Trace (A) Negative mg/dL POCT Urine Specific [place] 1.025 1.005 - 1.030 POCT Urine Blood [...] Ketones Negative Negative mg/dL POCT Urine Specific [place] >=1.030 1.005 - 1.030 POCT Urine Blood [...] Trace (A) Negative mg/dL POCT Urine Specific [place] 1.025 1.005 - 1.030 POCT Urine Blood [...] Description 04/21/2025 2:20 PM EDT Office Visit [facility] Urology [address], [address] [place] [address] Marylou Laughlin MD [address] [place] [address] documented as of this encounter Results * (ABNORMAL) Urinalysis, Microscopic (02/23/2025 1:48 PM EDT) RBC, Urine 4 - 10(A) 0 to 3 /HPF LAB URINALYSIS - AUTOMATED METHOD 02/23/2025 6:51 PM EDT [facility] WBC, Urine >50(A) 0 to 5 /HPF LAB URINALYSIS - AUTOMATED METHOD 02/23/2025 6:51 PM EDT [facility] Squamous Epithelial Cells 0 - 2 0 to 5 /HPF LAB URINALYSIS - AUTOMATED METHOD 02/23/2025 6:51 PM EDT [facility] Hyaline Casts 0 - 2 0 to 5 /LPF LAB URINALYSIS - AUTOMATED METHOD 02/23/2025 6:51 PM EDT [facility] Bacteria, Urine Negative Negative LAB URINALYSIS - AUTOMATED METHOD 02/23/2025 6:51 PM EDT [facility] Urine Urine specimen obtained by clean catch procedure / Unknown Non-blood Collection / Unknown 02/23/2025 1:48 PM EDT 02/23/2025 4:41 PM EDT us Mary Cross APRN LAB URINE ORDERABLES Final Result Performing Organization Address City/[facility]/ZIP Co de Phone Number [facility] [address] [place] [address] * (ABNORMAL) Fungal Culture, Routine (02/23/2025 1:48 PM EDT) Culture Heavy Growth Megan glabrata(A) 03/03/2025 9:36 AM EDT [facility] Comment: This isolate has been identified using the FDA Approved GreenGarer [place] System Edited result: Previously reported as Yeast on 02/26/2025 at 0938 EDT. Urine Urine specimen obtained by clean catch procedure / Unknown Non-blood Collection / Unknown 02/23/2025 1:48 PM EDT 02/23/2025 4:41 PM EDT us Mary Cross APRN LAB MICROBIOLOGY - GENERAL ORDERABLES Final Result Performing Organization Address [facility] Co de Phone Number [facility] [address] [place] [address] * Urine Culture (02/23/2025 1:48 PM EDT) Culture No growth at day 1 02/25/2025 11:16 AM EDT [facility] Urine Urine specimen obtained by clean catch procedure / Unknown Non-blood Collection / Unknown 02/23/2025 1:48 PM EDT 02/23/2025 4:41 PM EDT us Mary Cross APRN LAB MICROBIOLOGY - GENERAL ORDERABLES Final Result Performing Organization Address City/[facility]/ZIP Co de Phone Number [facility] [address] [place] [address] documented in this encounter Visit Diagnoses Diagnosis [...] documented as of this encounter Care Teams Painter And Body Work Relationship Specialty Start Date End Date Cate Frederick APRN [address] [place] [address] PCP - General 02/09/22 documented as of this encounter
--- OUTSIDE RECORDS SUMMARY | 2025-02-22 13:15 | XMS_ITS | Encounter Summary ---
Author Organization [facility] Address [address] [place] [address] Care Team Providers Care Bisque Finisher Name Role Phone Cate Frederick APRN Primary Care Provider Reason for Visit * Reason Comments Bladder Instillation Encounter Details Date Type Department Care Team (Latest Contact Info) Description 02/22/2025 1:15 PM EDT Clinical Support [facility] Urology [address] [place] [phone] [place] Cole LPN [facility] Radha glabrata infection (Primary [...] Description 04/21/2025 2:20 PM EDT Office Visit [facility] Urology [address] [place] [address] Marylou Laughlin MD [address] [place] [address] documented as of this encounter Visit Diagnoses [...] documented as of this encounter Care Teams Bisque Finisher Relationship Specialty Start Date End Date Cate Frederick, MIGUEL [address] [place] [address] PCP - General 02/09/22 documented as of this encounter
--- OUTSIDE RECORDS SUMMARY | 2025-02-23 13:15 | XMS_ITS | Encounter Summary ---
Author Organization [facility] Address [address] [place] [address] Care Team Providers Care Loan Service Officer Name Role Phone Cate Frederick APRN Primary Care Provider Reason for Visit * Reason Comments Bladder Instillation Encounter Details Date Type Department Care Team (Latest Contact Info) Description 02/23/2025 1:15 PM EDT Clinical Support [facility] [address], [address] [place] [phone] Chelsea Cole LPN [facility] Radha glabrata infection [...] Description 04/21/2025 2:20 PM EDT Office Visit [facility] [address], [address] [place] [address] Marylou Laughlin MD [address] [place] [address] documented as of this encounter Procedures Procedure [...] at day 1 02/25/2025 11:16 AM EDT [facility] Urine Urine specimen obtained by clean catch procedure / Unknown Non-blood Collection / Unknown 02/23/2025 1:48 PM EDT 02/23/2025 4:41 PM EDT us Mary Cross APRN LAB MICROBIOLOGY - GENERAL ORDERABLES Final Result Performing Organization Address [facility] Co de Phone Number [facility] [address] [place] [address] * (ABNORMAL) Fungal Culture, Routine (02/23/2025 1:48 PM EDT) Culture Heavy Growth Radha glabrata(A) 03/03/2025 9:36 AM EDT [facility] Comment: This isolate has been identified using the FDA Approved MALDI [employer] [place] System Edited result: Previously reported as Yeast on 02/26/2025 at 0938 EDT. Urine Urine specimen obtained by clean catch procedure / Unknown Non-blood Collection / Unknown 02/23/2025 1:48 PM EDT 02/23/2025 4:41 PM EDT us Mary Cross APRN LAB MICROBIOLOGY - GENERAL ORDERABLES Final Result Performing Organization Address City/[facility]/ZIP Co de Phone Number [facility] [address] [place] [address] * (ABNORMAL) Urinalysis, Microscopic (02/23/2025 1:48 PM EDT) RBC, Urine 4 - 10(A) 0 to 3 /HPF LAB URINALYSIS - AUTOMATED METHOD 02/23/2025 6:51 PM EDT [facility] WBC, Urine >50(A) 0 to 5 /HPF LAB URINALYSIS - AUTOMATED METHOD 02/23/2025 6:51 PM EDT [facility] Squamous Epithelial Cells 0 - 2 0 to 5 /HPF LAB URINALYSIS - AUTOMATED METHOD 02/23/2025 6:51 PM EDT [facility] Hyaline Casts 0 - 2 0 to 5 /LPF LAB URINALYSIS - AUTOMATED METHOD 02/23/2025 6:51 PM EDT [facility] Bacteria, Urine Negative Negative LAB URINALYSIS - AUTOMATED METHOD 02/23/2025 6:51 PM EDT [facility] Urine Urine specimen obtained by clean catch procedure / Unknown Non-blood Collection / Unknown 02/23/2025 1:48 PM EDT 02/23/2025 4:41 PM EDT Mary Cross APRN LAB URINE ORDERABLES Final Result Performing Organization Address City/State/[facility] Co de Phone Number [facility] [address] [place] [address] documented in this encounter Visit Diagnoses Diagnosis [...] documented as of this encounter Care Teams Loan Service Officer Relationship Specialty Start Date End Date Cate Frederick APRN [address] [place] [address] PCP - General 02/09/22 documented as of this encounter
--- OUTSIDE RECORDS SUMMARY | 2025-02-24 13:30 | XMS_ITS | Encounter Summary ---
Author Organization [facility] Address [address] [place] [address] Care Team Providers Care Appian Developer Name Role Phone Cate Frederick APRN Primary Care Provider [phone] Reason for Visit * Reason Comments Bladder Instillation Encounter Details Date Type Department Care Team (Latest Contact Info) Description 02/24/2025 1:30 PM EDT Clinical Support [facility] [address], [address] [place] [address] Germaine Francisco LPN [facility] Recurrent UTI (Primary Dx) Social History Tobacco Use Types Packs/Day Years Used Date Smoking Tobacco: Every Day Cigarettes 0.5 70.2 Started: 01/23/1955 Smokeless Tobacco: Never Tobacco Cessation:Ready to Q uit: Not Asked; Counseling Given: Not Answered Alcohol Use Standard Drinks/Week Comments Never 0 [...] Sign Reading Time Taken Comments Blood Pressure 133/56 02/24/2025 1:24 PM EDT Pulse 75 02/24/2025 1:24 PM EDT Temperature - - Respiratory Rate - - Oxygen Saturation - - Inhaled Oxygen Concentration - - Weight 62.1 kg (137 lb) 02/24/2025 1:24 PM EDT Height 167.6 cm (5' 6 ) 02/24/2025 1:24 PM EDT Body Mass Index 22.11 02/24/2025 1:24 PM EDT documented in this encounter Functional Status * Over the past 2 weeks, how often have you been bothered by any of the following problems? Question Answer Date of Assessment Author Little interest or pleasure in doing things Not at all 02/24/2025 2:21 PM EDT Germaine Francisco LPN Feeling down, depressed, or hopeless Not at all 02/24/2025 2:21 PM EDT Germaine Francisco LPN Patient Health Questionnaire-2 Score 0 02/24/2025 2:21 PM EDT Germaine Francisco LPN documented as of this encounter Miscellaneous Notes * Progress Notes - Germaine Francisco LPN - 02/24/2025 1:30 PM EDT Ms. Claribel Skelton is a 84 year old female with a history of RUTIs. She presents today for routine bladder instillation. She is accompanied with her daughter. Ms. Skelton has not notice any changes in her symptoms and stated that her frequency has gotten worse. She also stated it still hurts when she urinates and very little comes out. Bladder catheterization and instillation procedure was discussed with the patient including benefits and risks for infection, bleeding and allergic reaction. Verbal consent from the patient was given. Patient was then prepped using betadine swabs x3 and bladder catheterization per urethra was performed using an 8fr hydrophilic catheter using sterile technique. 20 ml of slightly cloudy urine was obtained via catheter. Then 3 ml Ampho B + 15 ml 2 % preservative free Lidocaine was slowly instilled. Patient tolerated procedure well with no complaints. Upon doing the instillation, I noticed some slight irritation on the out side of the labia and inside. She did stated it is sore there and she has been using just toilet paper to clean herself. She asked if using baby wipes could help and I explained to her she can try but not to wipe but to pat dry the out side only to help with the irritation. She stated she will try that and is asking if there is anything else she can use for the redness and irritation. Plan: Continue as scheduled for daily instillation. Call the clinic with any questions or concerns at [phone] documented in this encounter Plan of Treatment Upcoming Encounters Date Type Department Care Team (Late st Contact Info) Description 04/21/2025 2:20 PM EDT Office Visit [facility] [address], [address] [place] [address] Marylou Laughlin MD [address] [place] [address] documented as of this encounter Visit Diagnoses Diagnosis Recurrent UTI- Primary Urinary tract infection, site not specified documented in this encounter Administered Medications Inactive Administered Medications - up to 3 most recent administrations Medication Order MAR Action Action Date Dose Rate Site amphotericin B conventional (Fungizone) injection 15 mg 15 mg, Intravesical, Once, 1 dose, On Sat02/24/25 at 1515, RoutineIndications:Recurrent UTI Given 02/24/2025 2:27 PM EDT 15 mg lidocaine (Xylocaine) 2 % injection 300 mg 300 mg (15 mL), Intravesical, Once, 1 dose, On Sat02/24/25 at 1515, RoutineIndications:Recurrent UTI Given 02/24/2025 2:27 PM EDT 15 mL documented in this encounter Additional Health Concerns Assessment Noted Time PHQ-9 Depression Total Score: 24 023 12:02 PM EST A fall risk assessment has been complete d for the patient 02/24/2025 2:21 PM EDT A Body Mass Index follow-up plan has been documented for the patient 02/23/2025 2:01 PM EDT documented as of this encounter Care Teams Appian Developer Relationship Specialty Start Date End Date Cate Frederick APRN [address] [place] [address] PCP - General 02/09/22 documented as of this encounter
--- OUTSIDE RECORDS SUMMARY | 2025-02-25 13:15 | XMS_ITS | Encounter Summary ---
Author Organization [facility] Address [address] [place] [address] Care Team Providers Care Nanoscience Technician Name Role Phone Cate Frederick APRN Primary Care Provider Reason for Visit * Reason Comments Bladder Instillation Encounter Details Date Type Department Care Team (Late st Contact Info) Description 02/25/2025 1:15 PM EDT Clinical Support [place] [facility] [address], [address] [place] [address] Marek Bello EM[facility] Candiduria [...] clinic with any questions or concerns at [phone] documented in this encounter Plan of Treatment Upcoming Encounters Date Type Department Care Team (Late st Contact Info) Description 04/21/2025 2:20 PM EDT Office Visit [place] [facility] [address], [address] [place] [address] Marylou Laughlin MD [address] [place] [address] documented as of this encounter [...] documented as of this encounter Care Teams Nanoscience Technician Relationship Specialty Start Date End Date Cate Frederick APRN [address] [place] [address] PCP - General 02/09/22 documented as of this encounter
--- OUTSIDE RECORDS SUMMARY | 2025-02-26 13:15 | XMS_ITS | Encounter Summary ---
Author Organization [facility] Address [address] [place] [address] Care Team Providers Care Section Gang Name Role Phone Cate Frederick APRN Primary Care Provider Reason for Visit * Reason Comments Bladder Instillation Encounter Details Date Type Department Care Team (Latest Contact Info) Description 02/26/2025 1:15 PM EDT Clinical Support [place] [facility] [address], [address] [place] [phone] Chelsea Cole LPN [facility] Candiduria (Primary Dx) Social [...] Visit [facility] [address], [address] [place] [address] Marylou Laughlin MD [address] [place] [address] documented as of this encounter Visit Diagnoses [...] documented as of this encounter Care Teams Section Gang Relationship Specialty Start Date End Date Cate Frederick APRN [address] [place] [address] PCP - General 02/09/22 documented as of this encounter
--- OUTSIDE RECORDS SUMMARY | 2025-04-13 10:58 | XMS_ITS | Encounter Summary ---
Author Organization [facility] Address [address] [place] [address] Care Team Providers Care Hot Water Heater Installer Name Role Phone Cate Frederick APRN Primary Care Provider [phone] Encounter Details Date Type Department Care Team [...] Office Visit [place] [facility] [address], [address] [place] [address] Marylou Laughlin MD [address] [place] [address] documented as of this encounter [...] as of this encounter Care Teams Hot Water Heater Installer Relationship Specialty Start Date End Date Cate Frederick, MIGUEL [address] [place] [address] PCP - General 02/09/22 documented as of this encounter
--- OUTSIDE RECORDS SUMMARY | 2025-04-13 10:58 | XMS_ITS | Referral Summary ---
Author Organization [facility] ([place], [place], [place], [place]) Address [address] [place] [address] Care Team Providers Care Repair Coil Winder Name Role Phone Cate Frederick APRN Primary Care Provider [phone] Allergies Active Allergy Reactions Criticality Noted Date [...] Date Esdras rded Speak language other than [place] at home Not on file 08/27/2023 Want help with school or training Not on file 08/27/2023 Substance Use Answer Date Recorded Used prescription meds for non-medical reasons N ot on file 08/27/2023 Used illegal drugs past 12 months Not on file 08/27/2023 Comments No Sex and Gender Information Value Date Recorded Sex Assigned at Female 10/03/2023 9:11 AM WREATH MACHINE TENDER Legal Sex Female 5:32 PM CDT Gender Identity Female 10/03/2023 9:11 AM WREATH MACHINE TENDER Sexual Orientation Not on file Last [...] on file Medical Devices Implanted Type Area Hat And Cap Drying Room Attendant Device Identifier Shelf Expiration Date Model / Serial / Lot Iol Uv Clareon +20.5 [id number] - [id number] Implanted:Qty: 1 on 10/03/2023 by Ahmet Mohr MD at [facility] IMPLANTS Right: Eye JOJO 12/30/2024 [id number] / [id number] / Iol Uv [place]on +21.0 [id number] - [id number] Implanted:Qty: 1 on 10/24/2023 by Ahmet Mohr MD at [facility] IMPLANTS Left: Eye JOJO 04/02/2027 [id number] / [id number] Heart Description:X2 Insurance [place] [address] [employer] [facility] AD[facility] Care Teams Repair Coil Winder Relationship Specialty Start Date End Date Cate Frederick, ENGINEERING CONSULTANT [address] [place] [address] PCP - General Family Medicine 06/26/23
--- OUTSIDE RECORDS SUMMARY | 2025-04-13 10:58 | XMS_ITS | Encounter Summary ---
Author Organization [facility] Address [address] [place] [address] Care Team Providers Care Scooter Mechanic Name Role Phone Cate Frederick APRN Primary Care Provider [phone] Encounter Details Date Type Department Care Team (Late st Contact Info) Description 03/01/2025 Results Follow-Up [facility] [address], [address] [place] [address] Soha Gomez APRN, DNP [address] [place] [address] Social History Tobacco Use Types [...] Office Visit [facility] [address], [address] [place] [address] Marylou Laughlin MD [address] [place] [address] documented as of this encounter [...] documented as of this encounter Care Teams Scooter Mechanic Relationship Specialty Start Date End Date Cate Frederick, MIGUEL [address] [place] [address] PCP - General 02/09/22 documented as of this encounter
--- OUTSIDE RECORDS SUMMARY | 2025-04-13 10:58 | XMS_ITS | Encounter Summary ---
Author Organization [facility] Address [address] [place] [address] Care Team Providers Care Yarn Finisher Name Role Phone Cate Frederick APRN Primary Care Provider Encounter Details Date Type Department Care Team (Late st Contact Info) Description 03/05/2025 Telephone [place] [facility] [address], [address] [place] [address] Dayana Tavera Social History Tobacco [...] Description 04/21/2025 2:20 PM EDT Office Visit [facility] [address], [address] [place] [address] Marylou Laughlin MD [address] [place] [address] documented as of this encounter [...] documented as of this encounter Care Teams Yarn Finisher Relationship Specialty Start Date End Date Cate Frederick APRN [address] [place] [address] PCP - General 02/09/22 documented as of this encounter
--- OUTSIDE RECORDS SUMMARY | 2025-04-13 10:58 | XMS_ITS | Clinical Summary ---
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 11/12/2022 Dyspnea on [...] history exists Medical Devices Implanted Type Area Leather Roller Device Identifier Shelf Expiration Date Model / Serial / Lot Bone Filler Void Cerament 10ml - [id number] Implanted:Qty: 1 on 10/30/2022 by Jg Natarajan Jr., MD at [facility] Implant Right: Hand BONE SUPPORT 03/18/2025 [id number] / / [id number] Plt Geminus Nrw 3h Rt - [id number] Implanted:Qty: 1 on 10/30/2022 by Jg Natarajan Jr., MD at [facility] Implant Right: Hand SKELETAL DYNAMICS [id number] / / Scrw Geminus Pa Nl Ti 3.5x12mm - [id number] Implanted:Qty: 1 on 10/30/2022 by Jg Natarajan Jr., MD at [facility] Implant Right: Hand SKELETAL DYNAMICS [id number] / / Scrw Geminus Pa Nl 3ti .5x13mm - [id number] Implanted:Qty: 1 on 10/30/2022 by Jg Natarajan Jr., MD at [facility] Implant Right: Hand SKELETAL DYNAMICS [id number] / / Peg Volr Geminus Smoth Lk Ti 2x16mm - [id number] Implanted:Qty: 1 on 10/30/2022 by Jg Natarajan Jr., MD at [facility] Implant Right: Hand SKELETAL DYNAMICS [id number] S / / Peg Volr Geminus Smoth Lk Ti 2x18mm - [id number] Implanted:Qty: 1 on 10/30/2022 by Jg Natarajan Jr., MD at [facility] Implant Right: Hand SKELETAL DYNAMICS [id number] S / / Peg Volr Geminus Smoth Lk Ti 2x21mm - [id number] Implanted:Qty: 1 on 10/30/2022 by Jg Natarajan Jr., MD at [facility] Implant Right: Hand SKELETAL DYNAMICS [id number] S / / Peg Volr Geminus Smoth Lk Ti 2x20mm - [id number] Implanted:Qty: 1 on 10/30/2022 by Jg Natarajan Jr., MD at [facility] Implant Right: Hand SKELETAL DYNAMICS [id number] S / / Peg Volr Geminus Smoth Lk Ti 2x17mm - [id number] Implanted:Qty: 1 on 10/30/2022 by Jg Natarajan Jr., MD at [facility] Implant Right: Hand SKELETAL DYNAMICS [id number] S / / Scrw Morgan Geminus Lk Ti 3.5x12mm - [id number] Implanted:Qty: 1 on 10/30/2022 by Jg Natarajan Jr., MD at [facility] Implant Right: Hand SKELETAL DYNAMICS [id number] S / / Peg Volr Geminus Smoth Lk Ti 2x19mm - [id number] Implanted:Qty: 1 on 10/30/2022 by Jg Natarajan Jr., MD at [facility] Implant Right: Hand SKELETAL DYNAMICS [id number] S / / Explanted Type Area Leather Roller Device Identifier Shelf Expiration Date Model / Serial / Lot Kwire Std Tp 1.7l478wo - [id number] Explanted:Qty: 2 on 10/30/2022 at [facility] Implant Right: Hand SKELETAL DYNAMICS [id number] / / Kwire Std/Tp .[id number] - [id number] Explanted:Qty: 2 on 10/30/2022 at [facility] Implant Right: Hand SKELETAL DYNAMICS [id number] / / Procedures Procedure Name Priority Date/Time Associated Diagnosis Comments HEMOGLOBIN A1C Routine 01/19/2023 5:29 AM EDT from Last 3 Months or Most Recently Relevant to Health Maintenance Results * (ABNORMAL) Hemoglobin A1c (01/19/2023 5:29 AM EDT) Hemoglobin A1C 5.70(H) 4.80 - 5.60 % 01/19/2023 9:49 AM EDT [facility] Blood Venipuncture / Unknown 01/19/2023 5:29 AM EDT 01/19/2023 7:07 AM EDT Narrative [facility] - 01/19/2023 9:49 AM EDT Hemoglobin A1C Ranges: Increased Risk for Diabetes 5.7% to 6.4% Diabetes >= 6.5% Diabetic Goal < 7.0% us Betzaida Musa NETWORK SUPPORT ENGINEER LAB BLOOD ORDERABLES Final Result [facility]
[address] [phone] from Last 3 Months or Most Recently [...] Of Support Discussed With: Patient Care Teams Law Office Assistant Relationship Specialty Start Date End Date Cate Frederick APRN [address] [place] [address] PCP - General Nurse Practitioner 10/25/22
--- OUTSIDE RECORDS SUMMARY | 2025-04-13 10:58 | XMS_ITS | Encounter Summary ---
Author Organization [facility] Address [address] [place] [address] Care Team Providers Care Perinatal Specialist Name Role Phone Cate Frederick APRN Primary Care Provider [phone] Encounter Details Date Type Department Care Team [...] Office Visit [place] [facility] [address], [address] [place] [address] Marylou Laughlin MD [address] [place] [address] documented as of this [...] documented as of this encounter Care Teams Perinatal Specialist Relationship Specialty Start Date End Date Cate Frederick, MIGUEL [address] [place] [address] PCP - General 02/09/22 documented as of this encounter
--- OUTSIDE RECORDS SUMMARY | 2025-04-13 10:58 | XMS_ITS | Encounter Summary ---
Author Organization [facility] Address [address] [place] [address] Care Team Providers Care Direct Casting Operator Name Role Phone Caet Frederick APRN Primary Care Provider Encounter Details Date Type Department Care Team (Late st Contact Info) Description 02/16/2025 Orders Only [place] [facility] [address], [address] [place] [address] Mary Cross APRN [address] [place] [address] Radha glabrata infection (Primary Dx); [...] Office Visit [place] [facility] [address], [address] [place] [address] Marylou Laughlin MD [address] [place] [address] documented as of this encounter [...] documented as of this encounter Care Teams Direct Casting Operator Relationship Specialty Start Date End Date Cate Frederick APRN [address] [place] [address] PCP - General 02/09/22 documented as of this encounter
--- OUTSIDE RECORDS SUMMARY | 2025-04-13 10:58 | XMS_ITS | Encounter Summary ---
Author Organization [facility] Address [address] [place] [address] Care Team Providers Care Oyster Washer Name Role Phone Cate Frederick APRN Primary Care Provider [phone] Encounter Details Date Type Department Care Team [...] Office Visit [place] [facility] [address], [address] [place] [address] Mraylou Laughlin MD [address] [place] [address] documented as of this encounter [...] documented as of this encounter Care Teams Oyster Washer Relationship Specialty Start Date End Date Cate Frederick APRN [address] [place] [address] PCP - General 02/09/22 documented as of this encounter
--- OUTSIDE RECORDS SUMMARY | 2025-04-13 10:58 | XMS_ITS | Clinical Summary ---
Author Organization [facility] [employer] ([place], [place], [place], [place]) Address [address] [place] [address] Care Team Providers Care Hop Sorter Name Role Phone Cate Frederick APRN Primary Care Provider [phone] Allergies Active Allergy Reactions Criticality Noted Date [...] Date Esdras rded Speak language other than [place] at home Not on file 08/27/2023 Want help with school or training Not on file 08/27/2023 Substance Use Answer Date Recorded Used prescription meds for non-medical reasons N ot on file 08/27/2023 Used illegal drugs past 12 months Not on file 08/27/2023 Comments No Sex and Gender Information Value Date Recorded Sex Assigned at Female 10/03/2023 9:11 AM AIRCRAFT HYDRAULIC EQUIPMENT MECHANIC Legal Sex Female 5:32 PM CDT Gender Identity Female 10/03/2023 9:11 AM AIRCRAFT HYDRAULIC EQUIPMENT MECHANIC Sexual Orientation Not on file Last [...] 05/09/2020, 2017 Medical Devices Implanted Type Area Sensor Specialist Device Identifier Shelf Expiration Date Model / Serial / Lot Iol Uv [place] +20.5 [id number] - [id number] Implanted:Qty: 1 on 10/03/2023 by Ahmet Mohr MD at [facility] IMPLANTS Right: Eye JOJO 12/30/2024 [id number] / [id number] / Iol Uv [place] +21.0 [id number] - [id number] Implanted:Qty: 1 on 10/24/2023 by Ahmet Mohr MD at [facility] IMPLANTS Left: Eye JOJO 04/02/2027 [id number] / [id number] / Stents Heart Description:X2 Insurance [place] [id number] [facility] Care Teams Hop Sorter Relationship Specialty Start Date End Date Cate Frederick, GALLERY MANAGER [address] [place] [id number] PCP - General Family Medicine 06/26/23
--- OUTSIDE RECORDS SUMMARY | 2025-04-13 10:58 | XMS_ITS | Encounter Summary ---
Author Organization [facility] Address [address] [place] [address] Care Team Providers Care Auto Phone Installer Name Role Phone Cate Frederick APRN Primary Care Provider [phone] Reason for Visit * Reason Onset Date Comments HCN - Patient Message 02/02/[address] Encounter Details Date Type Department Care Team (Late st Contact Info) Description 02/02/2025 Telephone [facility] [address], [address] [place] [address] Mary Cross INSURANCE EXAMINING CLERK [address] [place] [address] HCN - Patient Message (Call [...] patient earlier on 02/18/2025 at 11:00 am. [facility]. KJa * Telephone Encounter - Phuong Brooks - 02/02/2025 3:46 PM EDT Void--pt has been scheduled with MR. Does not need rec for IC * Telephone Encounter - Gracia Valadez - 02/02/2025 12:00 PM EDT Patient Phone Message Reason for Call: [facility] (PCP) requesting a return call to discuss recommendations on where pt could be seenfor Interstitial Cystitis Best contact number and optimal time of day to reach caller: [phone] Kaci Note: Please do not reply to [...] Office Visit [facility] [address], [address] [place] [address] Marylou Laughlin MD [address] [place] [address] documented as of this encounter [...] documented as of this encounter Care Teams Auto Phone Installer Relationship Specialty Start Date End Date Cate Frederick APRN [address] [place] [address] PCP - General 02/09/22 documented as of this encounter
--- OUTSIDE RECORDS SUMMARY | 2025-04-13 10:58 | XMS_ITS | Encounter Summary ---
Author Organization [facility] Address [address] [place] [address] Care Team Providers Care Well Drill Operator Rotary Drill Name Role Phone Cate Frederick APRN Primary Care Provider Encounter Details Date Type Department Care Team (Late st Contact Info) Description 02/15/2025 Results Follow-Up [place] [facility] [address], [address] [place] [address] Mary Cross APRN [address] [place] [address] Social History Tobacco Use Types [...] Office Visit [facility] [address], [address] [place] [address] Marylou Laughlin MD [address] [place] [address] documented as of this encounter [...] documented as of this encounter Care Teams Well Drill Operator Rotary Drill Relationship Specialty Start Date End Date Cate Frederick, DECK MECHANIC [address] [place] [address] PCP - General 02/09/22 documented as of this encounter
--- OUTSIDE RECORDS SUMMARY | 2025-04-13 10:58 | XMS_ITS | Encounter Summary ---
Author Organization [facility] Address [address] [place] [address] Care Team Providers Care Hot Mill Observer Name Role Phone Cate Frederick APRN Primary Care Provider [phone] Encounter Details Date Type Department Care Team [...] Office Visit [place] [facility] [address], [address] [place] [address] Marylou Laughlin MD [address] [place] [address] documented as of this encounter [...] as of this encounter Care Teams Hot Mill Observer Relationship Specialty Start Date End Date Cate Frederick, MIGUEL [address] [place] [address] PCP - General 02/09/22 documented as of this encounter
--- OUTSIDE RECORDS SUMMARY | 2025-04-13 10:58 | XMS_ITS | Encounter Summary ---
Author Organization [facility] Address [address] [place] [address] Lab Technician Name Role Phone Cate Frederick APRN Primary Care Provider [phone] Reason for Visit * Reason Onset Date Comments HCN Clinical Concern/Question 03/09/2025 Encounter Details Date Type Department Care Team (Late st Contact Info) Description 03/09/2025 Telephone [place] [facility] [address], [address] [place] [address] Mary Cross APRN [address] [place] [address] HCN Clinical Concern/Question Social History [...] with info. Thank you Best contact number: [phone] (mobile) Optimal time of day to reach caller: ANYTIME Additional comments/information from caller: None Note: Please do not reply to this message. Follow-up communication and further actions as a result of this message need to be communicated with the patient directly, if the patient is not active onMyChart. If the patient is active on MyChart, they will receive notification of the communication/outcome via Svbtlet. documented in this encounter Plan of Treatment Upcoming Encounters Date Type Department Care Team (Late st Contact Info) Description 04/21/2025 2:20 PM EDT Office Visit [place] [facility] [address], [address] [place] [address] Marylou Laughlin MD [address] [place] [address] documented as of this encounter [...] documented as of this encounter Care Teams Rd Lab Technician Relationship Specialty Start Date End Date Cate Frederick, MIGUEL [address] [place] [address] PCP - General 02/09/22 documented as of this encounter
--- OUTSIDE RECORDS SUMMARY | 2025-04-13 10:58 | XMS_ITS | Encounter Summary ---
Author Organization [facility] Address [address] [place] [address] Care Team Providers Care Sales Account Specialist Name Role Phone Cate Frederick APRN Primary Care Provider [phone] Reason for Visit * Reason Onset Date Comments HCN - Patient Message 03/11/2025 Missed jennifer l Encounter Details Date Type Department Care Team (Late st Contact Info) Description 03/11/2025 Telephone [place] [facility] [address], [address] [place] [address] Mary Cross, KNOT TYING OPERATOR [address] [place] [address] HCN - Patient Message (Missed [...] optimal time of day to reach caller: [phone] Note: Please do not reply to this [...] Description 04/21/2025 2:20 PM EDT Office Visit [facility] [address], [address] [place] [address] Marylou Laughlin MD [address] [place] [address] documented as of this encounter [...] documented as of this encounter Care Teams Sales Account Specialist Relationship Specialty Start Date End Date Cate Frederick APRN [address] [place] [address] PCP - General 02/09/22 documented as of this encounter
--- OUTSIDE RECORDS SUMMARY | 2025-04-13 10:58 | XMS_ITS | Encounter Summary ---
Author Organization [employer] ([place], [place], [place], [place]) Address [address] [place] [address] Care Team Providers Care Principal Process Engineer Name Role Phone Cate Frederick APRN Primary Care Provider [phone] Reason for Referral * Mammography (Routine) - New Request Specialty Diagnoses / Procedures Referred By Contac t Referred To Contact Diagnoses Other screening mammogram Procedures MM digital mammo screen with dayana bilateral Cate Frederick APRN [address] [place] [address] Phone: tel: fax: Referral ID Status Reason Start Date Expiration Date V isits Requested Visits Authorized [id number] New Request 06/19/2024 06/19/2025 1 1 Encounter Details Date Type Department Care Team (Late st Contact Info) Description 06/19/2024 Outside Orders [facility] Central Scheduling [address] [place] [address] Cate Frederick APRN [address] [place], [place] [id number] Other screening mammogram (Primary Dx) Social History [...] Sex Assigned at Female 10/03/2023 9:11 AM MAINTENANCE SERVICE TECHNICIAN Legal Sex Female 5:32 PM CDT Gender Identity Female 10/03/2023 9:11 AM MAINTENANCE SERVICE TECHNICIAN Sexual Orientation Not on file documented as [...] areas of focal mammographic concern. Cate Frederick TRADE ECONOMIST IMG MAMMOGRAPHY ORDERABLES F inal Result documented in this encounter Visit Diagnoses Diagnosis Other screening mammogram- Primary Other screening mammogram documented in this encounter Care Teams Principal Process Engineer Relationship Specialty Start Date End Date Cate Frederick, TRADE ECONOMIST [address] [place] [address] PCP - General Family Medicine 06/26/23 documented as of this encounter
--- OUTSIDE RECORDS SUMMARY | 2025-04-13 10:58 | XMS_ITS | Encounter Summary ---
Author Organization [facility] Address [address] [place] [address] Care Team Providers Care Concrete Paver Name Role Phone Cate Frederick APRN Primary [...] Office Visit [place] [facility] [address] [place] [address] Marylou Laughlin MD [address] [place] [address] documented as of this encounter [...] as of this encounter Care Teams Concrete Paver Relationship Specialty Start Date End Date Cate Frederick, MIGUEL [address] [place] [address] PCP - General 02/09/22 documented as of this encounter
--- OUTSIDE RECORDS SUMMARY | 2025-04-13 10:58 | XMS_ITS | Encounter Summary ---
Author Organization [facility] Address [address] [place] [address] Care Team Providers Care Tablet Making Machine Operator Name Role Phone Cate Frederick [...] Office Visit [place] [facility] [address], [address] [place] [address] Marylou Laughlin MD [address] [place] [address] documented as of this encounter [...] documented as of this encounter Care Teams Tablet Making Machine Operator Relationship Specialty Start Date End Date Cate Frederick, MIGUEL [address] [place] [address] PCP - General 02/09/22 documented as of this encounter
--- OUTSIDE RECORDS SUMMARY | 2025-04-13 10:58 | XMS_ITS | Encounter Summary ---
Author Organization [employer] ([place], [place], [place], [place]) Address [address] [place] [address] Care Team Providers Care Client Service Professional Name Role Phone Cate Frederick APRN Primary Care Provider [phone] Reason for Referral * Mammography (Routine) - Closed Specialty Diagnoses / Procedures Referred By Contac t Referred To Contact Diagnoses Visit for screening mammogram Procedures MM digital mammo screen bilateral Cate Frederick APRN [address] [place] [address] Phone: tel: fax: Referral ID Status Reason Start Date Expiration Date Visits Re quested Visits Authorized [id number] Closed 06/06/2023 12/03/2023 1 1 Encounter Details Date Type Department Care Team (Late st Contact Info) Description 06/06/2023 Outside Orders [facility] Central Scheduling [address] [place] [address] Cate Frederick APRN [address] [place] [id number] Visit for screening mammogram (Primary Dx) Social [...] Date Esdras rded Speak language other than Romansh at home Not on file 08/27/2023 Want help with school or training Not on file 08/27/2023 Substance Use Answer Date Recorded Used prescription meds for non-medical reasons N ot on file 08/27/2023 Used illegal drugs past 12 months Not on file 08/27/2023 Comments Unknown Sex and Gender Information Value Date Recorded Sex Assigned at Female 10/03/2023 9:11 AM CAR PAINTER Legal Sex Female 5:32 PM CDT Gender Identity Female 10/03/2023 9:11 AM CAR PAINTER Sexual Orientation Not on file COVID-19 Exposure [...] the next mammogram. At our facility, a [place] marker is positioned over a visible skin [...] family history of breast cancer COMPARISON STUDY: [facility] FINDINGS: Craniocaudal and mediolateral oblique [...] mammogram documented in this encounter Care Teams Client Service Professional Relationship Specialty Start Date End Date Cate Frederick, ODD PIECE CHECKER [address] [place] [address] PCP - General Family Medicine 06/26/23 documented as of this encounter
--- OUTSIDE RECORDS SUMMARY | 2025-04-13 10:58 | XMS_ITS | Encounter Summary ---
Author Organization [employer] ([place], [place], [place], [place]) Address [address] [place] [address] Care Team Providers Care Municipal Services Manager Name Role Phone Cate Frederick APRN Primary Care Provider [phone] Reason for Referral * Mammography (Routine) - Closed Specialty Diagnoses / Procedures Referred By Contac t Referred To Contact Diagnoses Visit for screening mammogram Procedures MM digital mammo screen bilateral Renee Cortés APRN [address] [address] Phone: tel: fax: Referral ID Status Reason Start Date Expiration Date Visits Re quested Visits Authorized [id number] Closed 05/06/2022 11/02/2022 1 1 Encounter Details Date Type Department Care Team (Late st Contact Info) Description 05/06/2022 Outside Orders [facility] Central Scheduling 1 [place] [id number] Renee Cortés WELFARE ELIGIBILITY WORKER [address] [address] Visit for screening mammogram (Primary Dx) Social History Tobacco Use Types Packs/Day Years Used Date Smoking Tobacco: Never Assessed Comments Unknown Sex and Gender Information Value Date Recorded Sex Assigned at Female 10/03/2023 9:11 AM MOLASSES COLORING OPERATOR Legal Sex Female 5:32 PM CDT Gender Identity Female 10/03/2023 9:11 AM MOLASSES COLORING OPERATOR Sexual Orientation Not on file documented [...] distortion or clustered microcalcifications. us Renee Cortés WELFARE ELIGIBILITY WORKER IMG MAMMOGRAPHY ORDERABLES Final Result documented in this encounter Visit Diagnoses Diagnosis Visit for screening mammogram- Primary Visit for screening mammogram documented in this encounter Care Teams Municipal Services Manager Relationship Specialty Start Date End Date Cate Frederick, WELFARE ELIGIBILITY WORKER [address] [place] [address] PCP - General Family Medicine 06/26/23 documented as of this encounter
--- OUTSIDE RECORDS SUMMARY | 2025-04-13 10:59 | XMS_ITS | Encounter Summary ---
Author Organization [facility] Address [address] [place] [address] Care Team Providers Care Baffle Installer Name Role Phone Cate Frederick APRN [...] Office Visit [facility] [facility] [address], [address] [place] [address] Marylou Laughlin MD [address] [place] [address] documented as of this encounter [...] documented as of this encounter Care Teams Baffle Installer Relationship Specialty Start Date End Date Cate Frederick, MIGUEL [address] [place] [address] PCP - General 02/09/22 documented as of this encounter
--- OUTSIDE RECORDS SUMMARY | 2025-04-13 10:59 | XMS_ITS | Encounter Summary ---
Author Organization [facility] Address [address] [place] [place] [address] Care Team Providers Care Poultry Farmer Name Role Phone Cate Frederick APRN Primary Care Provider [phone] Reason for Referral * Consultation (Routine) - Authorized Specialty Diagnoses / Procedures Referred By Ольга t Referred To Contact Infectious Diseases Diagnoses Candiduria Radha glabrata infection Mary Cross APRN [address] [address] Phone: tel: fax: Referral ID Status Reason Start Date Expiration Date Visits Requested Visits Authorized [id number] Authorized Specialty Services Required 03/12/2025 09/11/2026 1 1 Encounter Details Date Type Department Care Team (Late st Contact Info) Description 03/12/2025 Orders Only [facility] [address], [address] [place] [address] Mary Cross APRN [id number] [place] [address] Candiduria (Primary Dx); Radha glabrata [...] - 03/12/2025 8:45 AM EDT Referred to [facility] [place] [facility] for no change in symptoms with ampho B instillations documented in this encounter Plan of Treatment Upcoming Encounters Date Type Department Care Team (Late st Contact Info) Description 04/21/2025 2:20 PM EDT Office Visit [facility] [address], [address] [place] [address] Marylou Laughlin MD [address] [place] [address] Scheduled Referrals Name Type Priority Associated Diagnoses [...] documented as of this encounter Care Teams Poultry Farmer Relationship Specialty Start Date End Date Cate Frederick APRN [address] [place] [address] PCP - General 02/09/22 documented as of this encounter
--- OUTSIDE RECORDS SUMMARY | 2025-04-13 10:59 | XMS_ITS | Clinical Summary ---
Author Organization [facility] Address [address] [place] [address] Care Team Providers Care Rod Buster Name Role Phone Cate Frederick APRN Primary [...] Department Care Team Description 03/12/[address] [facility] [address], [address] [place] [address] Mary Cross APRN Candiduria (Primary Dx); Radha glabrata infection 03/11/[address] [facility] [address], [address] [place] [address] Mary Cross APRN HCN - Patient Message (Missed call ) 03/09/[address] [facility] [address] [facility] [place] [address] Mary Cross APRN HCN Clinical Concern/Question 03/05/[address] [facility] [address], [facility] [place] [address] Dayana Tavera 03/01/2025 Results Follow-Up [facility] [address], [facility] [place] [address] Soha Gomez APRN, DNP 02/26/2025 1:15 PM EDT Clinical Support [facility] [address], [facility] [place] [address] Chelsea Cole LPN Candiduria (Primary Dx) 02/26/2025 Travel 02/25/2025 1:15 PM EDT Clinical Support [facility] [address], [facility] [place] [address] Marek Bello Candiduria (Primary Dx); Radha glabrata infection 02/25/2025 Travel 02/24/2025 1:30 PM EDT Clinical Support [facility] [address], [facility] [place] [address] Germaine Francisco LPN Recurrent UTI (Primary Dx) 02/24/2025 Travel 02/23/2025 1:15 PM EDT Clinical Support [facility] [address], [facility] Floor [facility] [place] [address] Chelsea Cole LPN Radha glabrata infection (Primary Dx) 02/23/2025 Travel 02/22/2025 1:15 PM EDT Clinical Support [facility] [address], [facility] [place] [address] Chelsea Cole LPN Radha glabrata infection (Primary Dx) 02/22/2025 Travel 02/18/2025 11:00 AM EDT Procedure Visit [facility] [address], [address] [place] [address] Chelsea Cole LPN Radha glabrata infection (Primary Dx) 02/18/2025 Travel 02/17/2025 9:40 AM EDT Procedure Visit [facility] [address], [facility] [place] [address] Mary Cross APRN Candiduria (Primary Dx); Radha glabrata infection 02/17/2025 Travel 02/16/[address] [facility] [address] [place] [address], [facility] [place] [address] Mary Cross APRN Radha glabrata infection (Primary Dx); Candiduria 02/15/2025 Results Follow-Up [facility] [address] [place] [address], [address] [place] [address] Mary Cross APRN 02/11/2025 10:20 AM EDT Office Visit [facility] [address] [place] [address], [facility] [place] [address] Mary Cross APRN Recurrent UTI (Primary Dx); Bladder pain; Chronic ulcerating interstitial cystitis 02/11/2025 Travel 02/02/[address] [facility] [address] [place] [address] Mary Cross APRN HCN - Patient [...] Office Visit [facility] [address] [place] [address] Marylou Laughlin MD [address] [place] [address] Health Maintenance Due Date Last Done Comments [facility]-Bone Density Scan 1940 PENDING SALE TO [facility]-Medicare Annual Wellness (AWV) 1940 [facility]-Infant/Child/Adol SDOH Screenings 1940 [facility]- SDOH Screenings 1958 [facility]-Adult SDOH Screenings 1958 [facility]-DTaP,Tdap,and Td Vaccines (1 - Tdap) 1959 [facility]-Zoster Vaccines (1 of 2) 1990 [facility]-RSV Vaccine: 60+ Years or (1 - 1-dose 75+ series) 2015 [facility]-Pneumococcal Vaccine: 50+ Years (2 of 2 - PCV) 06/10/2020 06/10/2019 [id number] Vaccine (5 - season) 2024 03/29/2022, 04/27/2021, [...] Cross APRN LAB URINE ORDERABLES Final Result [facility] [address] [place] [address] * (ABNORMAL) Fungal Culture, Routine (02/23/2025 1:48 PM EDT) Only the most recent of2 resultswithin the time period is included. Culture Heavy Growth Radha glabrata(A) 03/03/2025 9:36 AM EDT [facility] Comment: This isolate has been identified using the FDA Approved [employer] [place] System Edited result: Previously reported as Yeast on 02/26/2025 at 0938 EDT. Urine Urine specimen obtained by clean catch procedure / Unknown Non-blood Collection / Unknown 02/23/2025 1:48 PM EDT 02/23/2025 4:41 PM EDT us Mary Cross APRN LAB MICROBIOLOGY - GENERAL ORDERABLES Final Result Performing Organization Address City/[facility] [place] [address] * Urine Culture (02/23/2025 1:48 PM EDT) Only the most recent of2 resultswithin the time period is included. Culture No growth at day 1 02/25/2025 11:16 AM EDT [facility] Urine Urine specimen obtained by clean catch procedure / Unknown Non-blood Collection / Unknown 02/23/2025 1:48 PM EDT 02/23/2025 4:41 PM EDT us Mary Cross APRN LAB MICROBIOLOGY - GENERAL ORDERABLES Final Result Performing Organization Address City/[facility]/ZIP Co de Phone Number [facility] [address] [place] [address] * (ABNORMAL) POCT URINALYSIS DIPSTICK (02/17/2025 9:56 AM EDT) Only the most recent of2 resultswithin the time period is included. POCT Urine Color Yellow 02/17/2025 9:58 AM EDT [facility] POCT Urine Clarity Clear 02/17/2025 9:58 AM EDT [facility] POCT Urine Glucose >=1000(A) Negative mg/dL 02/17/2025 9:58 AM EDT [facility] POCT Urine Bilirubin Negative Negative mg/dL 02/17/2025 9:58 AM EDT [facility] POCT Urine Ketones Trace(A) Negative mg/dL 02/17/2025 9:58 AM EDT [facility] POCT Urine Specific [place] 1.025 1.005 - 1.030 02/17/2025 9:58 AM EDT [facility] POCT Urine Blood Large(A) Negative 02/17/2025 9:58 AM EDT [facility] POCT pH, Urine 5.5 5.0 - 8.0 02/17/2025 9:58 AM EDT [facility] POCT Protein, Urine >=300(A) Negative mg/dL 02/17/2025 9:58 AM EDT [facility] POCT Urobilinogen, Urine 0.2 0.2, 1.0 EU/dL 02/17/2025 9:58 AM EDT [facility] POCT Nitrite, Urine Negative Negative 02/17/2025 9:58 AM EDT [facility] POCT Urine Leukocyte Esterase Small(A) Negative 02/17/2025 9:58 AM EDT [facility] Urine 02/17/2025 9:56 AM EDT 02/17/2025 9:58 AM EDT us Mary Cross APRN LAB POINT OF CARE TEST DOCKED DEVICE UNSOLICITED RESULTS Final Result Performing Organization Address [facility]/State/[place] de Phone Number [facility] [address], [place] * POC US Bladder Volume (02/11/2025 10:35 AM EDT) Urine, Volume 1 mL IMAGING Anatomical Region Laterality Modality Other us Mary Cross APRN IMG POINT OF CARE ULTRASOU ND Final Result from Last 3 Months Insurance [employer] MEDICARE Care Teams Rod Buster Relationship Specialty Start Date End Date Cate Frederick, MIGUEL [address] [place] [address] PCP - General 02/09/22
[2025-04-13 11:21] LABS: Hematocrit 31.6 % (37.0-47.0); Hemoglobin 9.6 g/dL (12.2-16.2); Immature Granulocytes % 0.5 %; Mean Corpuscular HGB Conc 30.4 g/dL (31.8-35.4); Mean Corpuscular Hemoglobin 26.1 pg (27.0-31.2); Mean Corpuscular Volume 85.9 fl (81-99); Nucleated Red Blood Cells % 0 %; Platelet Count 175 K/mm3 (142-424); Red Blood Count 3.68 M/mm3 (4.20-5.40); Red Cell Distribution Width-SD 77.2 fL; White Blood Count 4.3 K/mm3 (4.8-10.8)
[2025-04-13 11:38] LABS: Albumin Level 3.8 g/dl (3.5-5.0); Chloride 109 mmol/L (98-107); Potassium 4.2 mmoL/L (3.5-5.1); Sodium 142 mmol/L (136-145)
[2025-04-13 11:40] LABS: Blood Urea Nitrogen 12 mg/dl (7-17)
[2025-04-13 11:41] LABS: Alanine Aminotransferase 23 U/L (12-78); Alkaline Phosphatase 77 U/L (38-126); Anion Gap 11.2 mEq/L (5-15); Aspartate Amino Transferase 45 U/L (14-36); Bilirubin,Direct 0.0 mg/dl (0.0-0.4); Bilirubin,Indirect 0.5 mg/dL (0.0-0.9); Bilirubin,Total 0.5 mg/dl (0.2-1.3); Bilirubin,Unconjugated 0.5 mg/dL (0.0-1.1); Calcium 8.7 mg/dl (8.4-10.2); Carbon Dioxide 26 mmol/L (22.0-30.0); Cholesterol 105 mg/dl (140-200); Creatinine,Serum 1.10 mg/dl (0.52-1.04); Estimated Glomerular Filt Rate 47 ml/min (>60); GFR (African American) 57 ML/MIN (>60); Glucose 56 mg/dl (74-100); Magnesium 2.0 mg/dl (1.6-2.3); Total Protein,Serum 6.7 g/dl (6.3-8.2); Triglycerides 87 mg/dl (30-150)
[2025-04-13 11:42] LABS: HDL Cholesterol 55 mg/dl (40-60)
[2025-04-13 11:59] LABS: Free T4 (Free Thyroxine) 1.49 ng/dl (0.78-2.19)
[2025-04-13 12:11] LABS: Thyroid Stimulating Hormone 13.00 uIU/mL (0.465-4.68)
[2025-04-13 12:34] LABS: Hemoglobin A1C 5.9 % (4.0-6.0)
== END 2025-04-13 23:59 | disposition home or self-care (01) ==
LOC: LAB 10:55
PROVIDERS: PCP Nurse Practitioner Family; Visit Provider Nurse Practitioner Family
DX: I48.92 Unspecified atrial flutter (principal); I10 Essential (primary) hypertension; E78.5 Hyperlipidemia, unspecified; E11.9 Type 2 diabetes mellitus without complications; I25.10 Atherosclerotic heart disease of native coronary artery without angina pectoris
CPT/HCPCS: 36415; 80048; 80061; 80076; 83036; 83735; 84439; 84443; 85025

== ENCOUNTER 2025-05-18 17:26 | Emergency (ER) | payer MEDICARE, SELFPAY ==
[2025-05-18] VITALS (11 sets, daily range): BP systolic 126–198; BP diastolic 47–98; PULSE 57–61; RESP 16–28; TEMP 36.4–36.8; O2SAT 97–99; BMI 21.6
--- OUTSIDE RECORDS SUMMARY | 2025-05-18 17:55 | XMS_ITS | Encounter Summary ---
Author Organization [facility] Address [address] [place] [address] Care Team Providers Care Office Associate Name Role Phone Cate Frederick APRN Primary Care Provider [phone] Reason for Visit * Reason Onset Date Comments HCN - Patient Message 03/11/2025 Missed jennifer l Encounter Details Date Type Department Care Team (Late st Contact Info) Description 03/11/2025 Telephone [facility] [address] [place] [address] Mary Cross, FOREST PATHOLOGY ASSOCIATE PROFESSOR [address] [place] [address] HCN - Patient Message (Missed call ) Social History Tobacco Use Types Packs/Day Years Used Date Smoking Tobacco: Every Day Cigarettes 0.5 70.3 Started: 01/23/1955 Smokeless Tobacco: Never Alcohol Use [...] optimal time of day to reach caller: [phone] Note: Please do not reply to this message. Follow-up communication and further actions as a result of this message need to be communicated with the patient directly, if the patient is not active onMyChart. If the patient is active on MyChart, they will receive notification of the communication/outcome via HMP Communicationst. documented in this encounter Plan of Treatment Not on file documented as of this encounter Visit Diagnoses [...] documented as of this encounter Care Teams Office Associate Relationship Specialty Start Date End Date Cate Frederick APRN [address] [place] [address] PCP - General 02/09/22 documented as of this encounter
--- OUTSIDE RECORDS SUMMARY | 2025-05-18 17:55 | XMS_ITS | Data Portability ---
Author Organization [facility] JACLYN Uribe [place] [facility] Address [address] [facility] [address] [place] [address] Care Team Providers Care Product Manufacturing Professional Name Role Phone REEMA MCLEAN Primary Care Provider Assessment No assessment recorded. Plan of Treatment Reminders Order Date Submit Date Provider Last Modified By Organization Details Last Modified Time Details Appointments None recorded. Lab None recorded. Referral None recorded. Procedures None recorded. Surgeries None recorded. Imaging None recorded. Medication Orders fluorouraci l 5 % topical cream 2023 024 [email or web address] 8 [facility], [address] [place] [address], [address], 15:48:02 Patient TargetsNo targets recorded. Patient InstructionsNo instructions recorded. Reason for Referral None Reported. Problems Name Problem SNOMED Code Status Onset Date Resolution Date Notes Provider Name and Address Organization Details Recorded Time History of malignant neoplasm of skin 101621871 Active 024 Gali Pretty [facility] 4 10:22:39 Problem Notes None recorded. Procedures Surgical History Date Name Laterality Status Provider Name and Address Organization Details Recorded Time 12/12/2023 DAK - Cryo AK completed Gali Pretty [facility] 12/12/2023 10:27:35 Imaging Results None recorded. Procedure [...] Of Your Most Recent Tobacco Screening? 12/12/2023 Information not available 12/12/2023 Sex: Unknown Functional Status Question Answer Note LastModified by Organization D etails LastModified Time Do you or have you ever used any other forms of tobacco or nicotine? No [email or web address] Information not available 12/12/2023 Mental Status None recorded. Family History Nothing Reported. Medical History Condition Response Squamous Cell Carcinoma Y Gynecological HistoryNo gynecological history recorded. Obstetrics History GPAL:G 0 P 0 0 0 0 Past Encounters Encounter ID Performer Location Encounter Start Date Encounter Closed Date Diagnosis/Indication Diagnosis SNOMED-CT Code Diagnosis ICD10 Code Diagnosis IMO Codes Diagnosis Note [id number] KEYANA MACKEY MD [facility] [address] [place] [address] 12/12/2023 09:56:03 12/12/2023 10:31:11 History of malignant neoplasm of skin 274595151 Z85.828 - No evidence of recurrence today- Call with any worrisome lesions or if treated lesions return- Return at regular intervals for skin exam as recommende d Most recent, 2019 Multiple b enign melanocytic nevi 569124457 D22.5 - Benign moles seen on exam [...] Amlactin BID on legs Seborrheic keratosis 394 766160 L82.1 - Benign overgrowth s of skin - 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) [id number] Claribel Skelton [id number] 23 Claribel Skelton Notes Date Note Type Note Provider Name and Address Organization Details Recorded Time 12/12/2023 text/html ROS as noted in the HPI Here for a full body skin examination - last skin check:May 2023 - history of skin cancer - SCC - last skin cancer was in 2019 - spots of concern today: legs, hands, arms. KEYANA MACKEY MD [address] [place] [address], [phone], [facility] 12/15/2023 09:00:50 OBGyn Episode No OBEpisode recorded.
--- OUTSIDE RECORDS SUMMARY | 2025-05-18 17:55 | XMS_ITS | Data Portability ---
Author Organization [facility] - [place] & [facility] Address [address] [place] [id number] Assessment Encounter Date Assessment Date Assessment LastModified [...] cardiac clearance in regard to her anticoagulant. [email or web address] Not available 06/26/2022 15:25:17 Plan of Treatment Reminders Order Date Submit Date Provider Last Modified By Organization Details Last Modified Time Details Appointments None recorded. Lab urinalysis , dipstick 2021 022 [email or web address] [facility] [address], [place], [address], 14:59:08 culture, urine 2021 022 [email or web address] [facility] [address], [facility] [place], [address], 11:28:33 urinalysis , dipstick 2021 [email or web address] [facility], [address] [place] [address], [address], [place], [address], 14:43:03 Referral None recorded. Procedures None recorded. Surgeries None recorded. Imaging None recorded. Medication Orders Macrobid 100 mg capsule 2021 [email or web address] [facility], [address] [place], [address], 15:43:36 Estrace 0.01% (0.1 mg/gram) vaginal cream 2021 [email or web address] [facility], [address] [place], [address], 14:43:14 Estrace 0.01% (0.1 mg/gram) vaginal cream 2021 [email or web address] [facility], [address] [place], [address], 14:43:03 Patient TargetsNo targets recorded. Patient InstructionsNo instructions recorded. Reason for Referral None Reported. Results Created Date Observation Date Name Description Value Unit Range Abnormal Flag Note LastModifiedBy Organization Detail LastModifiedTime 05/14/2005/14/2022 urina lysis , dipst ick Leukocytes (reference range) trace Not Available [facility] [address] [place] [address] [address], [place], [address], 05/14/2022 14:28:29 05/14/20 22 05/14/2022 urina lysis , dipst ick Nitrite (reference range:) negati ve Not Available [facility] [address] [place] [address] [address], [place], [address], 05/14/2022 14:28:29 05/14/20 22 05/14/2022 urina lysis , dipst ick Urobilinogen (reference range) 0.2 Not Available [facility] [address], [place], [address], 05/14/2022 14:28:29 05/14/20 22 05/14/2022 urina lysis , dipst ick Protein (reference range) negati ve Not Available [facility] [address], [place], [address], 05/14/2022 14:28:29 05/14/20 22 05/14/2022 urina lysis , dipst ick pH (reference range 5-8.5) 5.0 Not Available [facility], [place], [address], 05/14/2022 14:28:29 05/14/20 22 05/14/2022 urina lysis , dipst ick Blood (reference range:) negati ve Not Available [facility] [address], [place], [address], 05/14/2022 14:28:29 05/14/20 22 05/14/2022 urina lysis , dipst ick Specific Drummond (reference range) 1.020 Not Available [facility] [address] [address], [place], [address], 05/14/2022 14:28:29 05/14/20 22 05/14/2022 urina lysis , dipst ick Ketone (reference range) negati ve Not Available [address] [address], [place], [address], 05/14/2022 14:28:29 05/14/20 22 05/14/2022 urina lysis , dipst ick Bilirubin (reference range) negati ve Not Available [address] [place], [address], 05/14/2022 14:28:29 05/14/20 22 05/14/2022 urina lysis , dipst ick Glucose (reference range) negati ve Not Available [facility] [address], [place], [address], 05/14/2022 14:28:29 05/14/20 22 05/14/2022 urina lysis , dipst ick Color (reference range: yellow-brown ) Yellow Not Available [facility] [address] [place] [address] [address], [place], [address], 05/14/2022 14:28:29 06/26/20 22 06/26/2022 urina lysis , dipst ick Leukocytes Modera te Not Available [facility] [address] [place], [place], [address], 06/26/2022 14:52:48 06/26/20 22 06/26/2022 urina lysis , dipst ick Nitrite negati ve Not Available [facility] [place], [place], [address], 06/26/2022 14:52:48 06/26/20 22 06/26/2022 urina lysis , dipst ick Urobilinogen .2 Not Available [facility] [place], [place], [address], 06/26/2022 14:52:48 06/26/20 22 06/26/2022 urina lysis , dipst ick Protein 100 Not Available [facility] [address] [place], [address], 06/26/2022 14:52:48 06/26/20 22 06/26/2022 urina lysis , dipst ick pH 5.0 Not Available [facility] [address] [place], [place], [address], 06/26/2022 14:52:48 06/26/20 22 06/26/2022 urina lysis , dipst ick Blood Large Not Available [facility] [address] [place], [address], 06/26/2022 14:52:48 06/26/2006/26/2022 urina lysis , dipst ick Specific Drummond 1.030 Not Available [facility] [place], [address], 06/26/2022 14:52:48 06/26/20 22 06/26/2022 urina lysis , dipst ick Ketone Negati ve Not Available [facility] [place], [address], 06/26/2022 14:52:48 06/26/20 22 06/26/2022 urina lysis , dipst ick Bilirubin Negati ve Not Available [facility] [address] [place], [address], 06/26/2022 14:52:48 06/26/20 22 06/26/2022 urina lysis , dipst ick Glucose Negati ve Not Available [facility] [place], [address], 06/26/2022 14:52:48 06/26/20 22 06/26/2022 urina lysis , dipst ick Appearance Clear Not Available [facility] [place], [address], 06/26/2022 14:52:48 06/26/2006/26/2022 urina lysis , dipst ick Color Yellow Not Available [facility] [address] [place], [place], [address], 06/26/2022 14:52:48 06/08/[address], abdom en + pelvi s, w/o contr ast No observ ation record ed. [email or web address] Not Available 2021 10:23:42 Result Notes None recorded. Problems Name Problem SNOMED Code Status Onset Date Resolution Date Notes Provider Name and Address Organization Details Recorded Time Increased frequency of urination 626242193 Active 2021 Silvina becerra, CHELY - [facility] & [place] 2 08:35:49 Mixed urinary incontinence 454271504 Active 2021 Silvina becerra, CHELY - [facility] & [place] 2 08:36:15 Recurrent urinary tract infection 015010176 Active 2021 Silvina becerra, CHELY - [facility] & [place] 2 08:38:24 Nocturia 330757261 Active 2021 Silvina becerra, CHELY - [facility] & [place] 2 08:38:38 Notes:Acute cystitis with He maturia, [...] Updated DateTime 05/14/2022 170.18 cm 23.2 kg/m2 42563.6 7 g 96.8 [degF] 122/70 mm[Hg] Silvina Beard [facility] & [place] 2 14:19:15 Date Recorded Body height Body mass index (BMI) Body weight Body temperature Systolic And Diastolic Provider Name and Address Organization Details Last Updated DateTime 06/26/2022 170.18 cm 23 kg/m2 84883.0 8 g 97.3 [degF] 122/78 mm[Hg] Tsering BRADFORD [facility] & [place] 2 14:46:04 Social History Question Answer Notes LastModified by Organizat ion Details LastModified Time Tobacco Smoking Status Current Every Day Smoker CHELY Shearer [facility] & [place] 05/11/2022 08:45:08 How Much Tobacco Do You [...] ICD10 Code Diagnosis IMO Codes Diagnosis Note [id number] Joanne Juarez NP, S [facility]8 [facility],Su e [address] [place] [address] 05/14/2022 13:29:05 05/14/2022 14:39:10 Dysuria 56504938 R30.9 UA clear todayStart Estrace cream to use three times per weekRTC in 6 weeks for f/u Recurrent urinary tract infection 669848243 N39.0 Retention of urine 71817 4002 R33.9 Nocturia 592926337 R35.1 Atrophic vaginitis 20479 000 N95.2 [id number] Gopal Nunez MD [facility] [address] [place] [address] 06/26/2022 14:27:54 06/26/2022 15:22:53 Dysuria 90024089 R30.9 Recurrent urinary tract infection 584719730 N39.0 Retention of urine 02844 4002 R33.9 Bladder scan/ PVR 74 cc on 03/14/2022 and Nocturia 695993060 R35.1 Atrophic vaginitis 00064 000 N95.2 Health Concerns Section Related Observation LastModified by Organization Detai ls LastModified Time None Recorded Concern Status LastModified by Organization Details LastModified Time None Recorded Advance Directives Directive None Recorded Payers Insurance Date Sequence Insurance Name Policy Number Policy Howard Covered Member ID Howard Member ID Guarantor Name 05/15/2024 1 [employer] (MEDICARE REPLACEMENT/AD VANTAGE - HMO) Lida Theodore Costa [id number] Claribel Theodore Costa 05/15/2024 1 [place]MEDICARE REPLACEMENT REGIONAL PPO) [id number] Lida Theodore Costa [id number] Claribel Theodore Costa 03/07/2024 1 [employer]UM[employer] (MEDICARE REPLACEMENT/AD VANTAGE - HMO) Lida Theodore Costa [id number] Claribel Theodore Costa Notes Date Note Type [...] Joanne Juarez, ZAID, [address], [place], [address], [facility] - [facility] - [place] & [place] 05/14/2022 14:42:57 06/26/2022 text/html ROS as noted [...] current medication regimen. ] Gopal Nunez MD [address], [place], [address], [facility] - [place] & [place] 06/26/2022 15:25:34 OBGyn Episode No OBEpisode recorded.
--- OUTSIDE RECORDS SUMMARY | 2025-05-18 17:55 | XMS_ITS | Continuity of Care Document ---
Author Organization [employer] [facility] Formerly [facility], [facility] Address [address] [place] [address] Care Team Providers Care Intermediate Card Tender Name Role Phone ERIK FREDERICK Primary Care Provider NORMA Strickland Ore Feeder Assessment No assessment recorded. Plan of Treatment Reminders Order Date Submit Date Provider Last Modified By Organization Details Last Modified Time Details Appointments FOLLOW UP 30 2024 11:00A Jacqui Frederick APRN Not available Not available Not available Lab CMP, serum or plasma 2024 025 [facility]MA [facility] [address] [place], [address], 03/24/2025 13:08:30 magnesium , serum or plasma 2024 025 [facility]MA [facility] [address] [place], [address], 03/24/2025 13:08:32 iron + TIBC + ferritin, serum 2024 025 [facility]MA [facility] [address] [place], [address], 03/24/2025 13:08:29 CBC w/ auto diff 2024 025 AKANKSHA [facility]), [address] [place], [address], 03/24/2025 13:08:30 cobalamin and folate panel, serum 2024 025 PANAMA [facility]), [address] [facility], [place], [address], 03/24/2025 13:08:31 Referral hematolog ist referral - first available appt 2024 025 garcía Nguyen MD, [address], [place], [address], 04/21/2025 08:35:54 Procedures None recorded. Surgeries None recorded. Imaging None recorded. Medication Orders Lomotil 2.5 mg-0.025 mg tablet [address] [facility], [address] [place] [address], [address], 03/24/2025 14:24:42 ferrous sulfate 325 mg (65 mg iron) tablet [address] [facility], [address] [place] [address], [address], 03/24/2025 14:24:41 cyanocoba nicolle (vit B-12) 1,000 mcg sublingua l tablet [address] [facility], [address] [place] [address], [address], 03/24/2025 14:24:38 Patient TargetsNo targets recorded. Patient InstructionsNo instructions recorded. Reason for Referral first available appt Referring Physician: Erik Frederick, Family Medicine, Encounter Date: 03/23/2025 Results Created Date Observation Date Name Description Value Unit Range Abnormal Flag Note LastModifiedBy Organization Detail LastModifiedTime 03/23/2003/24/2025 FE+TI BC+FE R iron bind.cap.(TI BC) 324 ug/dL 250-45 0 normal Not Available [facility] ([facility]) [address] [facility], [place], [address], 03/24/2025 13:08:29 03/23/20 25 03/24/2025 FE+TI BC+FE R UIBC 292 ug/dL 118-36 9 normal Not Available [facility] ([facility]) [address] [place], [address], 03/24/2025 13:08:29 03/23/20 25 03/24/2025 FE+TI BC+FE R iron 32 ug/dL 27-139 normal Not Available [facility] ([facility]) [address] [place], [address], 03/24/2025 13:08:29 03/23/20 25 03/24/2025 FE+TI BC+FE R iron saturation 10 % 15-55 below low normal Not Available [facility] ([facility]) [address] [place], [address], 03/24/2025 13:08:29 03/23/20 25 03/24/2025 FE+TI BC+FE R ferritin 57 NG/mL 15-150 normal Not Available [facility] ([facility]) [address] [place], [address], 03/24/2025 13:08:29 03/23/20 25 03/24/2025 CBC WITH DIFFE RENTI AL/PL ATELE T WBC 5.5 x10e3 /uL 3.4-10 .8 normal Not Available [facility] ([facility]) [address] [place], [address], 03/24/2025 13:08:30 03/23/20 25 03/24/2025 CBC WITH DIFFE RENTI AL/PL ATELE T RBC 4.09 x10e6 /uL 3.77-5 .28 normal Not Available [facility] ([facility]) [address] [place], [address], 03/24/2025 13:08:30 03/23/20 25 03/24/2025 CBC WITH DIFFE RENTI AL/PL ATELE T hemoglobin 9.8 g/dL 11.1-1 5.9 below low normal Not Available [facility] ([facility]) [address] [place], [address], 03/24/2025 13:08:30 03/23/20 25 03/24/2025 CBC WITH DIFFE RENTI AL/PL ATELE T hematocrit 33.6 % 34.0-4 6.6 below low normal Not Available [facility] ([facility]) [address] [place], [address], 03/24/2025 13:08:30 03/23/20 25 03/24/2025 CBC WITH DIFFE RENTI AL/PL ATELE T MCV 82 fL 79-97 normal Not Available [facility] ([facility]) [address] [place], [address], 03/24/2025 13:08:30 03/23/20 25 03/24/2025 CBC WITH DIFFE RENTI AL/PL ATELE T MCH 24.0 pg 26.6-3 3.0 below low normal Not Available [facility] ([facility]) [address] [place], [address], 03/24/2025 13:08:30 03/23/20 25 03/24/2025 CBC WITH DIFFE RENTI AL/PL ATELE T MCHC 29.2 g/dL 31.5-3 5.7 below low normal Not Available [facility] ([facility]) [address] [place], [address], 03/24/2025 13:08:30 03/23/20 25 03/24/2025 CBC WITH DIFFE RENTI AL/PL ATELE T RDW 20.5 % 11.7-1 5.4 above high normal Not Available [facility] ([facility]) [address] [place], [address], 03/24/2025 13:08:30 03/23/20 25 03/24/2025 CBC WITH DIFFE RENTI AL/PL ATELE T platelets 207 x10e3 /uL 150-45 0 normal Not Available [facility] ([facility]) [address] [place], [address], 03/24/2025 13:08:30 03/23/20 25 03/24/2025 CBC WITH DIFFE RENTI AL/PL ATELE T neutrophils 67 % not estab. normal Not Available [facility] ([facility]) [address] [facility], [place], [address], 03/24/2025 13:08:30 03/23/20 25 03/24/2025 CBC WITH DIFFE RENTI AL/PL ATELE T lymphs 24 % not estab. normal Not Available [facility] ([facility]) [address] [place], [address], 03/24/2025 13:08:30 03/23/20 25 03/24/2025 CBC WITH DIFFE RENTI AL/PL ATELE T monocytes 7 % not estab. normal Not Available [facility] ([facility]) [address] [place], [address], 03/24/2025 13:08:30 03/23/20 25 03/24/2025 CBC WITH DIFFE RENTI AL/PL ATELE T eos 1 % not estab. normal Not Available [facility] ([facility]) [address] [place], [address], 03/24/2025 13:08:30 03/23/20 25 03/24/2025 CBC WITH DIFFE RENTI AL/PL ATELE T basos 0 % not estab. normal Not Available [facility] ([facility]) [address] [place], [address], 03/24/2025 13:08:30 03/23/20 25 03/24/2025 CBC WITH DIFFE RENTI AL/PL ATELE T immature cells PATIENT REGISTRATION CLERK Not Available [facility] ([facility]) [address] [facility] [place], [address], 03/24/2025 13:08:30 03/23/20 25 03/24/2025 CBC WITH DIFFE RENTI AL/PL ATELE T neutrophils (absolute) 3.8 x10e3 /uL 1.4-7. 0 normal Not Available [facility] ([facility]) [address] [facility], [place], [address], 03/24/2025 13:08:30 03/23/20 25 03/24/2025 CBC WITH DIFFE RENTI AL/PL ATELE T lymphs (absolute) 1.3 x10e3 /uL 0.7-3. 1 normal Not Available [facility] ([facility]) [address] [facility], [place], [address], 03/24/2025 13:08:30 03/23/20 25 03/24/2025 CBC WITH DIFFE RENTI AL/PL ATELE T monocytes(ab solute) 0.4 x10e3 /uL 0.1-0. 9 normal Not Available [facility] ([facility]) [address] [place], [address], 03/24/2025 13:08:30 03/23/20 25 03/24/2025 CBC WITH DIFFE RENTI AL/PL ATELE T eos (absolute) 0.0 x10e3 /uL 0.0-0. 4 normal Not Available [facility] ([facility]) [address] [facility], [place], [address], 03/24/2025 13:08:30 03/23/20 25 03/24/2025 CBC WITH DIFFE RENTI AL/PL ATELE T baso (absolute) 0.0 x10e3 /uL 0.0-0. 2 normal Not Available [facility] ([facility]) [address] [facility], [place], [address], 03/24/2025 13:08:30 03/23/20 25 03/24/2025 CBC WITH DIFFE RENTI AL/PL ATELE T immature granulocytes 1 % not estab. Not Available [facility] ([facility]) [address] [facility], [place], [address], 03/24/2025 13:08:30 03/23/20 25 03/24/2025 CBC WITH DIFFE RENTI AL/PL ATELE T immature grans (abs) 0.0 x10e3 /uL 0.0-0. 1 Not Available [facility] ([facility]) [address] [facility], [place], [address], 03/24/2025 13:08:30 03/23/20 25 03/24/2025 CBC WITH DIFFE RENTI AL/PL ATELE T NRBC PATIENT REGISTRATION CLERK Not Available [facility] ([facility]) [address] [facility], [place], [address], 03/24/2025 13:08:30 03/23/20 25 03/24/2025 CBC WITH DIFFE RENTI AL/PL ATELE T hematology comments: PATIENT REGISTRATION CLERK Not Available [facility] ([facility]) [address] [facility], [place], [address], 03/24/2025 13:08:30 03/23/20 25 03/24/2025 COMP. METAB OLIC PANEL (14) glucose 204 mg/dL 70-99 above high normal Not Available [facility] ([facility]) [address] [facility], [place], [address], 03/24/2025 13:08:30 03/23/20 25 03/24/2025 COMP. METAB OLIC PANEL (14) BUN 11 mg/dL 8-27 normal Not Available [facility] ([facility]) [address] [facility], [place], [address], 03/24/2025 13:08:30 03/23/20 25 03/24/2025 COMP. METAB OLIC PANEL (14) creatinine 1.06 mg/dL 0.57-1 .00 above high normal Not Available [facility] ([facility]) [address] [facility] [place], [address], 03/24/2025 13:08:30 03/23/20 25 03/24/2025 COMP. METAB OLIC PANEL (14) eGFR 52 mL/mi n/1.7 3 >59 below low normal Not Available [facility] ([facility]) [address] [facility] [place], [address], 03/24/2025 13:08:30 03/23/20 25 03/24/2025 COMP. METAB OLIC PANEL (14) BUN/creatini ne ratio 10 12-28 below low normal Not Available [facility] ([facility]) [address] [facility] [place], [address], 03/24/2025 13:08:30 03/23/20 25 03/24/2025 COMP. METAB OLIC PANEL (14) sodium 142 mmol/ L 134-14 4 normal Not Available [facility] ([facility]) [address] [facility], [place], [address], 03/24/2025 13:08:30 03/23/20 25 03/24/2025 COMP. METAB OLIC PANEL (14) potassium 4.6 mmol/ L 3.5-5. 2 normal Not Available [facility] ([facility]) [address] [facility], [place], [address], 03/24/2025 13:08:30 03/23/20 25 03/24/2025 COMP. METAB OLIC PANEL (14) chloride 104 mmol/ L 96-106 normal Not Available [facility] ([facility]) [address] [facility] [place], [address], 03/24/2025 13:08:30 03/23/20 25 03/24/2025 COMP. METAB OLIC PANEL (14) carbon dioxide, total 19 mmol/ L 20-29 below low normal Not Available [facility] ([facility]) [address] [facility] [place], [address], 03/24/2025 13:08:30 03/23/20 25 03/24/2025 COMP. METAB OLIC PANEL (14) calcium 8.5 mg/dL 8.7-10 .3 below low normal Not Available [facility] ([facility]) [address] [place], [address], 03/24/2025 13:08:30 03/23/20 25 03/24/2025 COMP. METAB OLIC PANEL (14) protein, total 6.6 g/dL 6.0-8. 5 normal Not Available [facility] ([facility]) [address] [place], [address], 03/24/2025 13:08:30 03/23/20 25 03/24/2025 COMP. METAB OLIC PANEL (14) albumin 3.8 g/dL 3.7-4. 7 normal Not Available [facility] ([facility]) [address] [place], [address], 03/24/2025 13:08:30 03/23/20 25 03/24/2025 COMP. METAB OLIC PANEL (14) globulin, total 2.8 g/dL 1.5-4. 5 Not Available [facility] ([facility]) [address] [place], [address], 03/24/2025 13:08:30 03/23/20 25 03/24/2025 COMP. METAB OLIC PANEL (14) bilirubin, total 0.2 mg/dL 0.0-1. 2 normal Not Available [facility] ([facility]) [address] [place], [address], 03/24/2025 13:08:30 03/23/20 25 03/24/2025 COMP. METAB OLIC PANEL (14) alkaline phosphatase 100 IU/L 44-121 normal Not Available [facility] ([facility]) [address] [place], [address], 03/24/2025 13:08:30 03/23/20 25 03/24/2025 COMP. METAB OLIC PANEL (14) AST (SGOT) 20 IU/L 0-40 normal Not Available [facility] ([facility]) [address] [place], [address], 03/24/2025 13:08:30 03/23/20 25 03/24/2025 COMP. METAB OLIC PANEL (14) ALT (SGPT) 14 IU/L 0-32 normal Not Available [facility] ([facility]) [address] [place], [address], 03/24/2025 13:08:30 03/23/20 25 03/24/2025 VITAM IN B12 AND FOLAT E vitamin B12 590 pg/mL 232-12 45 normal Not Available [facility] ([facility]) [address] [facility], [place], [address], 03/24/2025 13:08:31 03/23/20 25 03/24/2025 VITAM IN B12 AND FOLAT E folate (folic acid), serum 6.4 NG/mL >3.0 normal A serum folat e denise ntrat ion of less than 3.1 ng/mL is consi dered to repre sent clini jennifer defic iency . Not Available [facility] ([facility]) [address] [facility], [place], [address], 03/24/2025 13:08:31 03/23/20 25 03/24/2025 MAGNE SIUM magnesium 2.4 mg/dL 1.6-2. 3 above high normal Not Available [facility] ([facility]) [address] [facility] [place], [address], 03/24/2025 13:08:32 03/14/20 25 03/14/2025 XR, chest No observ ation record ed. [email or web address] [facility] [address], [place], [address], 03/15/2025 08:28:23 03/15/20 25 03/15/2025 US, doppl er echoc ardio gram No observ ation record ed. [address], [place], [address], 03/15/2025 14:22:54 03/16/20 25 03/14/2025 elect rocar diogr am No observ ation record ed. [address], [place], [address], 03/16/2025 11:39:43 03/16/20 25 03/14/2025 elect rocar diogr am No observ ation record ed. [address], [place], [address], 03/16/2025 09:33:29 04/08/20 25 04/07/2025 imagi ng/di agnos tic resul t No observ ation record ed. [facility] [address], [place], [address], 04/08/2025 13:20:44 04/08/20 25 04/07/2025 imagi ng/di agnos tic resul t No observ ation record ed. [facility] [address], [place], [address], 04/08/2025 14:53:17 04/11/20 25 04/11/2025 imagi ng/di agnos tic resul t No observ ation record ed. [facility] [address], [place], [place], [address], 04/11/2025 08:39:09 04/11/20 25 04/10/2025 imagi ng/di agnos tic resul t No observ ation record ed. [facility] [address], [place], [address], 04/11/2025 08:39:06 04/11/20 25 04/10/2025 CT, angio gram, abdom en + pelvi s + lower extre mity, w/wo contr ast No observ ation record ed. [email or web address] [facility] [address], [place], [address], 04/21/2025 13:54:02 Result Notes None recorded. Problems Name Problem SNOMED Code Status Onset Date Resolution Date Notes Provider Name and Address Organization Details Recorded Time Uncontro lled type 2 diabetes mellitus 398945495 Completed 201611/07/2021 Problem Code: 250.02; Problem Code Type: ICD-9; Not Available [facility] 21:53:25 Uncontro lled type 2 diabetes mellitus 265115849 Active 2016 Not Available [facility] 21:53:17 Acute lymphang itis of trunk 51067487 Completed 201606/10/2019 Problem Code: L03.329; Problem Code Type: ICD-10; Not Available [facility] 21:53:18 Cellulit is of abdomina l wall 07339802 Completed 201606/10/2019 Problem Code: L03.311; Problem Code Type: ICD-10; Not Available [facility] 21:53:19 Cellulit is and abscess of trunk 968045246 Completed 201611/07/2021 Problem Code: 682.2; Problem Code Type: ICD-9; Not Available [facility] 21:53:30 Pain of left hip joint 47446227700 9100 Completed 201606/10/2019 Problem Code: M25.552; Problem Code Type: ICD-10; Not Available [facility] 21:53:19 Pain of hip region 35593019 Completed 201611/07/2021 Problem Code: 719.45; Problem Code Type: ICD-9; Not Available [facility] 21:53:28 Uncontro lled type 2 diabetes mellitus 004885616 Completed 201605/26/2018 Not Available [facility] 2 21:53:17 Diarrhea 11261246 Completed 201604/29/2017 Problem Code: R19.7; Problem Code Type: ICD-10; Not Available [facility] 2 21:53:28 Acute cystitis 59044601 Completed 201604/09/2017 Problem Code: N30.01; Problem Code Type: ICD-10; Not Available [facility] 2 21:53:26 Candidal otitis externa 84771062 Completed 201608/02/2017 Problem Code: B37.84; Problem Code Type: ICD-10; Not Available [facility] 2 21:53:17 Otalgia of left ear Completed 201606/17/2017 Not Available [facility] 2 21:53:17 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 2 11:32:18 Otogenic otalgia 62218168 Completed 201606/17/2017 Problem Code: 388.71; Problem Code Type: ICD-9; Not Available [facility] 2 21:53:27 Late effects of cerebrov ascular disease 766102868 Completed 201611/07/2021 Problem Code: 438.9; Problem Code Type: ICD-9; Not Available [facility] 2 21:53:32 Mixed hyperlip idemia 373039369 Completed 201605/26/2018 Problem Code: E78.2; Problem Code Type: ICD-10; Not Available [facility] 2 21:53:17 Hyperten sive disorder 96236736 Active 2016 Problem Code: I10; Problem Code Type: ICD-10; Not Available [facility] 2 21:53:17 Abnormal weight gain 371058828 Completed 201608/17/2017 Problem Code: R63.5; Problem Code Type: ICD-10; Not Available [facility] 2 21:53:22 Benign essentia l hyperten nay 7079662 Active 2016 Problem Code: 401.1; Problem Code Type: ICD-9; Not Available [facility] 2 21:53:27 Non-bull ous impetigo 259766068 Completed 201609/14/2017 Problem Code: L01.01; Problem Code Type: ICD-10; Not Available [facility] 2 21:53:18 Neck pain 69994158 Completed 201609/14/2017 Not Available [facility] 2 21:53:19 Impetigo 09009424 Completed 201609/14/2017 Problem Code: 684; Problem Code Type: ICD-9; Not Available [facility] 2 21:53:32 Acute sinusiti s 55688877 Completed 201712/24/2017 Problem Code: J01.90; Problem Code Type: ICD-10; Not Available [facility] 2 21:53:18 Acute bronchit is 58233279 Completed 201702/08/2018 Problem Code: J20.9; Problem Code Type: ICD-10Miroslava becerra [facility] [employer] 2 11:32:18 Diarrhea 94541638 Completed 201702/18/2018 Problem Code: R19.7; Problem Code Type: ICD-10; Not Available [facility] 2 21:53:21 Acute cystitis 01956527 Completed 201703/08/2018 Problem Code: N30.01; Problem Code Type: ICD-10; Not Available [facility] 2 21:53:26 Dysuria 13094635 Completed 201705/10/2018 Problem Code: R30.9; Problem Code Type: ICD-10; Erik Frederick, [employer] TECHNICIAN [address] [place], [address] , [employer] 5 09:45:34 Urinary tract infectio us disease 93027480 Completed 201705/10/2018 Problem Code: 599.0; Problem Code Type: ICD-9; CARMELO MYNEAR null, [employer] 2 11:32:18 Constipa tion 14931438 Completed 201707/06/2022 Problem Code: 564.0; Problem Code Type: ICD-9; CARMELO TRANGNEAR null, [employer] 2 11:32:18 Abnormal weight gain 650319825 Completed 201707/25/2018 Problem Code: R63.5; Problem Code Type: ICD-10; Not Available [facility] 2 21:53:23 Influenz a 8241849 Completed 201706/19/2018 Problem Code: J10.1; Problem Code Type: ICD-10; Not Available [facility] 2 21:53:18 Acute bronchit is 21800196 Completed 201708/04/2018 Problem Code: J20.8; Problem Code Type: ICD-10; CARMELO COSTELLONEAR null, [employer] 2 11:32:18 Influenz a with non-resp iratory manifest ation 71616822 Completed 201706/19/2018 Problem Code: 487.8; Problem Code Type: ICD-9; Not Available [facility] 2 21:53:28 Low back pain 999715969 Completed 201807/06/2022 Problem Code: M54.5; Problem Code Type: ICD-10; CARMELO TRANGNEAR null, [employer] 2 11:32:18 Lumbar spondylo sis 739321672 Completed 201801/05/2020 Problem Code: M47.26; Problem Code Type: ICD-10; Not Available [facility] 2 21:53:19 Low back pain 664616666 Completed 201801/05/2020 Problem Code: M54.5; Problem Code Type: ICD-10; CARMELO becerra, [employer] 2 11:32:18 Nausea 883415747 Completed 201807/06/2022 Problem Code: R11.0; Problem Code Type: ICD-10; CARMELO becerra, [employer] 2 11:32:18 Acute bronchit is 56830242 Completed 201807/06/2022 Problem Code: J20.9; Problem Code Type: ICD-10; CARMELO becerra, [employer] 2 11:32:18 General examinat ion of patient Completed 201811/07/2021 Not Available [facility] 2 21:53:23 Atherosc lerosis of coronary artery without angina pectoris 14693146183 4103 Active 2018 Not Available [facility] 2 21:53:23 Urinary tract infectio us disease 89035154 Completed 201805/09/2020 Problem Code: N39.0; Problem Code Type: ICD-10; CARMELO becerra, [employer] 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 70363947 Active 2019 Problem Code: D51.9; Problem Code Type: ICD-10; Not Available [facility] 2 21:53:17 Otitis externa of bilatera l ears 16807373659 23086 Completed 201905/09/2020 Problem Code: H60.333; Problem Code Type: ICD-10; Not Available [facility] 2 21:53:17 Finding of general energy 080996443 Completed 201905/09/2020 Problem Code: R53.83; Problem Code Type: ICD-10; Not Available [facility] 2 21:53:22 Dysuria 41681929 Completed 201907/06/2022 Problem Code: R30.0; Problem Code Type: ICD-10; Erik Frederick APRN [address] [place], [address] , [employer] 5 09:45:34 Urinary tract infectio us disease 00614975 Completed 201905/09/2020 Problem Code: N39.0; Problem Code Type: ICD-10; CARMELO TRANGNEAR null, [employer] 2 11:32:18 Urinary tract infectio us disease 02089476 Completed 201905/09/2020 Problem Code: N39.0; Problem Code Type: ICD-10; CARMELO MYNEAR null, [employer] 2 11:32:18 Dysuria 89014794 Completed 201905/09/2020 Problem Code: R30.0; Problem Code Type: ICD-10; Erik Frederick, MIGUEL [address] [place], [address] , [employer] 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 2 11:32:18 Urinary tract infectio us disease 14582791 Completed 202006/05/2021 Problem Code: N39.0; Problem Code Type: ICD-10; CARMELO TRANGNEAR null, [employer] 2 11:32:18 General examinat ion of patient Active 2020 Not Available [facility] 2 21:53:23 Body mass index 25-29 - overweig 225601426 Active 2020 Problem Code: Z68.28; Problem Code Type: ICD-10; Not Available [facility] 2 21:53:24 Influenz a vaccine needed 19458541251 06 Completed 202007/06/2022 Problem Code: Z23; Problem Code Type: ICD-10; CARMELO MYNEAR null, [employer] 2 11:32:18 Dizzines s and giddines s 758493296 Completed 202107/06/2022 Problem Code: R42; Problem Code Type: ICD-10; CARMELO MYNEAR null, [employer] 2 11:32:18 Acute respirat ory infectio ns 429200923 Completed 202107/06/2022 Problem Code: J22; Problem Code Type: ICD-10; CARMELO MYNEAR null, [employer] 2 11:32:18 Myositis [id number] Completed 202107/06/2022 Problem Code: M60.9; Problem Code Type: ICD-10; CARMELO MYNEAR null, [employer] 2 11:32:18 Cough 90024251 Completed 202101/29/2022 Problem Code: R05; Problem Code Type: ICD-10; Not Available [facility] 2 21:53:20 Urinary tract infectio us disease 07294907 Completed 202107/06/2022 Problem Code: N39.0; Problem Code Type: ICD-10; CARMELO MYNEAR null, [employer] 2 11:32:18 Chronic systolic heart failure 153436527 Active 2023 Erik Frederick APRN [address] [place] [address], [id number] , [employer] 4 13:46:49 Moderate recurren t major depressi on 52053653 Active 2023 Erik Frederick APRN [address] [place] [address], [address] [place] [address] , [employer] 4 16:09:53 Mild dementia 06844360808 4108 Active 2023 Erik Frederick APRN [address] [place] [address], [address] [place] [address] , [employer] 4 13:51:34 Renal tract candidia sis 795709682 Active 2024 Erik Frederick APRN [address] [place] [address], [address] [place] [address] , [employer] 5 10:50:24 Dysuria 49891991 Active 2024 Erik Frederick APRN [address] [place] [address], [address] [place] [address] , [employer] 5 09:45:34 Vaginiti s 77776657 Active 2024 Erik Frederick APRN [address] [place] [address], [address] [place] [address] , [employer] 5 10:11:56 Incision al hernia 732808348 Active 2024 Erik Frederick APRN [address] [place] [address], [address] [place] [address] , [employer] 5 10:12:26 Chronic primary bladder pain syndrome Active 2024 Erik Frederick APRN [address] [place] [address], [address] [place] [address] , [employer] 5 12:57:37 Candidia sis 14316839 Active 2024 Erik Frederick APRN [address] [place] [address], [address] [place] [address] , [employer] 5 12:57:46 Atrial fibrilla tion with rapid ventricu lar response 50517311194 9109 Active 2024 Erik Frederick APRN [address] [place] [address], [address] , [employer] 13:56:55 Iron deficien cy anemia 10458101 Active 2024 Erik Frederick APRN [address] [place] [address], [address] , [employer] 13:57:07 Chronic diarrhea 924401756 Active 2024 Erik Frederick APRN [address] [place] [address], [address] , [employer] 14:12:37 Injury of right leg 98341647202 112230 Active 2024 Erik Frederick APRN [address] [place] [address], [address] , [employer] 10:52:57 Notes:*Problem Name: Celluli tis of ankle *Problem Status: Acute *Comments: *Problem Code: 682.6 *Problem Code Type: ICD-9 *Note Date: 12/10/2017 Problem Notes None recorded. Procedures Surgical History Date Name Laterality Status Provider Name and Address Organization Details Recorded Time 05/11/20 24 Pacemaker completed Erik Frederick APRN [address] [place] [address], [id number], [employer] 05/18/2024 13:07:53 05/11/20 24 placement of stent in coronary artery completed Erik Frederick APRN [address] [place] [address], [id number], [employer] 05/18/2024 13:08:19 11/13/19 24 Cerumen Removal completed Erik Frederick APRN [address] [place] [address], [address], [employer] 11/17/2023 18:30:04 11/09/19 23 open reduction of fracture with internal fixation completed Erik Frederick APRN [address] [place] [address], [address], [employer] 11/20/2022 10:33:35 06/06/20 22 Most Recent Mammogram completed CARMELO FLOWERNicanor [employer] 11/13/2023 15:19:19 12/25/19 17 placement of stent in coronary artery completed Not Available [facility] 04/24/2022 22:56:18 12/25/19 17 hysterectomy completed Not Available [facility] 022 22:56:18 Imaging Results None recorded. Procedure Notes None recorded. Medical Equipment None Reported. Allergies Allergen ID Allergen Name Allergen Category Reaction Reaction Severity Criticality Documentation Date Start Date Code Code System Note Provider Name and Address Organization Details Recorded Time 82626 Substance with sulfonami de structure and antibacte rial mechanism of action (substanc e) medicatio n Not available Not available Not available 04/24/2022 08536 8003 SNOMED Shyann Sinai becerra [employer] 3 08:50:19 35063 Jardiance medicatio n Not available Not available Not available 04/24/2022 68345 59 RxNorm Not Available [facility] 2 22:57:08 91566 Pyridium medicatio n Not available Not available Not available 04/24/2022 8998 RxNorm Not Available [facility] 2 22:57:08 Medications Name Sig Start Date Stop Date Status Note LastModified by Organization Details LastModified Time losartan 50 mg tablet Take 1 tablet every day by oral route, for BP. 03/23 completed Not Available Not Available Not Available latanoprost 0.005 % eye drops 03/23 completed Not Available Not Available Not Available fluconazole 100 mg tablet TAKE ONE TABLET BY MOUTH EVERY DAY FOR 5 DAYS for yeast 03/23 completed Not Available Not Available Not Available atorvastati n 40 mg tablet TAKE 1 TABLET BY MOUTH AT BEDTIME NIGHTLY active Not Available Not Available No t Available nystatin 100,000 unit/mL oral suspension TAKE FIVE [...] Available Lidocaine Viscous 2 % mucosal solution 03/23 completed Not Available Not Available Not Available ofloxacin [...] completed Not Available Not Available Not Available amiodarone 200 mg tablet Take 2 tablets every day by oral route. active Not Available Not Available No t Available benzonatate 200 mg capsule take 1 [...] Available diphenoxyla te-atropine 2.5 mg-0.025 mg tablet TAKE 1 TABLET BY MOUTH TWICE DAILY NEEDED FOR DIARRHEA active Not Available Not Available No t Available clopidogrel 75 mg tablet TAKE ONE TABLET BY MOUTH ONCE DAILY active Not Available Not Available No t Available dextrometho rphan-guaif enesin 10 mg-100 mg/5 mL oral syrup [...] triamcinolo ne acetonide 0.1 % topical cream 03/23 completed Not Available Not Available Not Available glimepiride 2 mg tablet Take one tablet by mouth BID 12/25 completed Not Available Not Available Not Available ketorolac 0.5 % eye drops 03/23 completed Not Available Not Available Not Available [...] DAILY FOR SEVEN DAYS, FOR toe infection 03/20 completed Not Available Not Available Not Available pantoprazol e 40 mg tablet,kristi yed release 03/23 completed Not Available Not Available Not Available simvastatin 20 mg tablet TAKE 1 TABLET(S) BY MOUTH AT BEDTIME 02/18 completed Not Available Not Available Not Available cyanocobala min (vit B-12) 1,000 mcg/mL injection solution Inject 1 mL every month by subcutane ous route. 2024 active Not Available Not Available Not Avai lable ferrous sulfate 325 mg (65 mg iron) tablet TAKE 1 TABLET BY MOUTH EVERY DAY active Not Available Not Available No t Available glimepiride 4 mg tablet Take 1 tablet(s) [...] Not Available cyanocobala min (vit B-12) 1,[address] 1 tablet every day by sublingua l route. 2024 active Not Available Not Available Not Avai lable digoxin 125 mcg (0.125 mg) tablet 03/23 completed Not Available Not Available Not Available furosemide 20 mg tablet Take 1 tablet every day by oral route in the morning, for BP. 03/23 completed Not Available Not Available Not Available Levaquin 500 mg tablet Take 1 tablet(s) [...] completed Not Available Not Available Not Available Vitamin B-12 2,500 mcg sublingual tablet DISSOLVE 1 TABLET UNDER THE TONGUE EVERY DAY active Not Available Not Available No t Available escitalopra m 10 mg tablet Take [...] unit/mL (3 mL) subcutaneou s pen Inject 30 units under the skin every day at bedtime, for diabetes. active Not Available Not Available No t Available Exelon Patch 4.6 mg/24 hour transdermal Apply [...] TAKE ONE TABLET BY MOUTH EVERY DAY 2024 active Not Available Not Available Not Avai lable Xarelto 15 mg tablet TAKE ONE TABLET [...] completed Not Available Not Available Not Available MediHoney (honey) 80 % topical gel Apply 1 applicati on every day by topical route. 2024 active Not Available Not Available Not Avai lable Jardiance 25 mg tablet take 1 tablet [...] Not Available No t Available Fluzone High-Dose 5017-7013 (PF) 180 mcg/0.5 mL intramuscul ar syringe [...] Details Last Updated DateTime 5 170.18 cm 20.1 kg/m2 07433.9 8 g 98.1 [degF] 60 /min 99 % 99 % 131/50 mm[Hg] CARMELO HENDRICKS [employer] 5 13:51:25 Social History Question Answer Notes LastModified by Organizat ion Details LastModified Time Tobacco Smoking Status Current Every Day Smoker Shyann becerra [employer] 10/08/2022 08:50:45 Do You Have An Advance [...] Do You Have A Medical Power Of Tin Pourer? No Information not available 07/06/2022 What Was The Date Of Your Most Recent Tobacco Screening? 04/23/2025 Information not available 04/23/2025 What Is Your Current Pack Years? 30ormorepacky [...] Information not available 07/06/2022 Do you have access to reliable transportation? No Information not available 07/06/2022 Do you [...] Vaccine Type Date Status Note Provider Nam e and Address Organization Details Recorded Time zoster recombinant 4 completed Erik Frederick APRN [address] [place], [address], [employer] 01/26/2024 20:55:37 Influenza, split virus, quadrivalent, preservative 8 completed CARMELO MYNEAR null, [employer] 07/06/2022 11:25:37 Influenza, split virus, quadrivalent, PF 1 completed CARMELO MYNEAR null, [employer] 07/06/2022 11:25:37 Influenza, MDCK, quadrivalent, PF 0 completed CARMELO MYNEAR null, [employer] 07/06/2022 11:25:38 Influenza, MDCK, quadrivalent, preservative 9 completed CARMELO MYNEAR null, [employer] 07/06/2022 11:25:38 pneumococcal polysaccharide PPV23 9 completed CARMELO MYNEAR null, [employer] 07/06/2022 11:25:37 Influenza, split virus, trivalent, PF 7 completed Not Available [employer] 06/01/2023 10:23:36 Influenza, high-dose, quadrivalent, PF 2 completed CARMELO MYNEAR null, [employer] 07/06/2022 11:25:37 COVID-19, mRNA, LNP-S, PF, 100 mcg/0.5mL dose or 50 mcg/0.25mL dose 1 completed CARMELO MYNEAR null, [employer] 07/06/2022 11:25:37 COVID-19, mRNA, LNP-S, PF, 100 mcg/0.5mL dose or 50 mcg/0.25mL dose 1 completed CARMELO MYNEAR null, [employer] 07/06/2022 11:25:37 Hep A, adult 9 completed CARMELO MYNEAR null, [employer] 07/06/2022 11:25:38 Hep A, adult 9 completed CARMELO MYNEAR null, [employer] 07/06/2022 11:25:38 COVID-19, mRNA, LNP-S, PF, 100 mcg/0.5mL dose or 50 mcg/0.25mL dose 1 completed CARMELO MYNEAR null, [employer] 07/06/2022 11:25:38 COVID-19, mRNA, LNP-S, PF, 100 mcg/0.5mL dose or 50 mcg/0.25mL dose 2 completed CARMELO MYNEAR null, [employer] 07/06/2022 11:25:38 COVID-19, mRNA, LNP-S, bivalent, PF, 50 mcg/0.5 mL or 25mcg/0.25 mL dose 3 completed Tiara Bossier null, [employer] 01/18/2023 14:51:22 SARS-COV-2 (COVID-19) vaccine, UNSPECIFIED 4 completed CARMELO MYNEAR null, [employer] 06/29/2024 11:45:18 influenza, unspecified formulation 4 completed CARMELO ELADIO becerra, [employer] 06/29/2024 11:45:34 COVID-19, mRNA, LNP-S, PF, 50 mcg/0.5 mL 3 completed Not Available [facility] 04/23/2025 09:57:51 Influenza, high-dose, quadrivalent, PF 3 completed Not Available [facility] 04/23/2025 09:57:51 Past Encounters Encounter ID Performer Location Encounter Start Date Encounter Closed Date Diagnosis/Indication Diagnosis SNOMED-CT Code Diagnosis ICD10 Code Diagnosis IMO Codes Diagnosis Note [id number] Erik Frederick [address] [address] 03/23/2025 13:28:51 03/23/2025 14:49:36 Atrial fibrillation with rapid ventricular response [id number] 30800 I48.91 [id number] Continue follow-up with cardiology and take medication s as per their instructio ns. Iron defic iency anemia 31930539 D50.9 [id number] Obtain post transfusio n labs. Begin B 12 and ferrous sulfate. She has a pernicious anemia hx. Refer to Hematology . She is high risk right now for colonoscop y due to afib and xarleto - complicate d cardic history in a smoker with COPD and DM 2 on insulin. Chronic diarrhea 9605275 09 K52.9 49228 Lomotil refilled. She would be high risk for colonoscop y. Goals Section Goal Description Progress Status Start Date LastModified by Organization Details LastModified Time Activitie s of Daily Living Performs activities of daily living independently or with minimal assistance [employer]Change active 2023 Norma Church Information not available 12/24/2023 19:11:45 Hemoglobi n A1C Lowers or maintains hemoglobin A1C (HbA1c) as per care team recommendation (s) [TARGET: less than or equal to 7%] improving active 2023 ERIK FREDERICK Information not available 04/23/2025 14:34:07 Smoking Cessation Quits smoking NoChange active 2023 Norma Church Information not available 12/24/2023 19:11:45 Follow-up Appointme nt(s) Attends referral and/or follow-up appointment(s) as per care team recommendation (s) Jayjay active 2023 Norma Church Information not [...] Active Norma Church Not Available 12/23/2023 13:35:20 Payers Encounter Date Sequence Insurance Name Policy Number Policy Howard Covered Member ID Howard Member ID Guarantor Name 03/23/2025 1 [place] [employer] OF [facility] ACCESS (MEDICARE REPLACEMENT REGIONAL PPO) [id number] Lida Theodore Costa [id number] Claribel Skelton Notes Date Note Type Note Provider Name and Address Organization Details Recorded Time text/html Hospitalization Contact RecordReported by PatientHospitalization Contact RecordFor follow up, patient reportshospital: __ ([facility]Lida was admitted to the hospital due to acute onset of A-fib with RVR with significant new onset anemia.ROS as noted in the HPI Erik Frederick, [employer] TECHNICIAN [address] [facility], [place], [address], [place] [employer] 04/20/2025 20:50:31 OBGyn Episode No OBEpisode recorded.
--- OUTSIDE RECORDS SUMMARY | 2025-05-18 17:55 | XMS_ITS | Data Portability ---
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 Plan of Treatment Reminders Order Date Submit Date Provider Last Modified By Organization Details Last Modified Time Details Appointments FOLLOW UP 30 2024 11:00A Jacqui Frederick APRN Not available Not available Not available Lab CMP, serum or plasma 2024 025 [place] [facility]), [address] [place], [address], 03/24/2025 13:08:30 magnesium , serum or plasma 2024 025 [place] [facility], [address] [place], [address], 03/24/2025 13:08:32 iron + TIBC + ferritin, serum 2024 025 [place] [facility]), [address] [place], [address], 03/24/2025 13:08:29 CBC w/ auto diff 2024 025 [place] [facility]), [address] [place], [address], 03/24/2025 13:08:30 cobalamin and folate panel, serum 2024 025 [place] [facility]), [address] [place], [address], 03/24/2025 13:08:31 vaginal pathogens panel, LAI+probe , vaginal fluid 2024 025 [facility] ([place]), [facility] [place], [address], 01/08/2025 08:10:46 culture, urine 2024 025 [place] [facility]), [facility] [place], [address], 01/08/2025 08:10:47 urinalysi s, dipstick [address], [address], 01/06/2025 10:28:06 basic metabolic 1998 panel, serum or plasma 2024 [address] ([place]), [facility] [place], [address], 02/17/2025 13:16:47 gastroint estinal pathogens DNA + RNA panel, LAI+non-p robe, stool 2024 [address] ([place]), [address] [place] [address], [address], 02/17/2025 13:16:47 HbA1c (hemoglob in A1c), blood [address], [address], 12/23/2024 10:47:45 Referral hematolog ist referral - first available appt 2024 025 garcía Nguyen MD, [address], [place], [address], 04/21/2025 08:35:54 podiatris t referral - Diabetic foot care; first available appt 2024 025 [facility], [address], [place], [address], 02/19/2025 09:27:23 Procedures None recorded. Surgeries None recorded. Imaging CT, abdomen + pelvis, w/ contrast - BMP to be drawn at [facility] for contrast day of scan. 2024 025 [facility] ([facility]), [address], [place], [address], 01/21/2025 12:22:27 Medication Orders Lomotil 2.5 mg-0.025 mg tablet 2024 025 [facility], [address] [place] [address], [address], 03/24/2025 14:24:42 ferrous sulfate 325 mg (65 mg iron) tablet 2024 025 [facility], [address] [place] [address], [id number], 03/24/2025 14:24:41 cyanocoba nicolle (vit B-12) 1,000 mcg sublingua l tablet 2024 025 [facility], [address] [place] [address], [address], 03/24/2025 14:24:38 fluconazo le 100 mg tablet 2024 025 [facility], [address] [place] [address], [address], 03/23/2025 13:51:39 Lantus Solostar U-100 Insulin 100 unit/mL (3 mL) subcutane ous pen 2024 025 [facility], [address] [place] [address], [address], 03/23/2025 13:54:06 cyanocoba nicolle (vit B-12) 1,000 mcg/mL injection solution 2024 [email or web address] Not available 12/23/2024 10:47:44 colchicin e 0.6 mg tablet 2024 025 [facility], [address] [place] [address], [address], 12/23/2024 10:38:05 amitripty line 50 mg tablet 2024 025 [facility], [address] [place] [address], [address], 04/02/2025 11:02:08 cephalexi n 500 mg capsule 2024 025 [facility], [address] [place] [address], [address], 12/23/2024 10:38:07 Patient TargetsNo targets recorded. Patient InstructionsNo instructions recorded. 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[employer] ntrolled type 2 diabetes mellitus Diabetic foot care; first available appt Referring Physician: [facility], Encounter Date: 12/23/2024 first available appt Referring Physician: [facility], Encounter Date: 03/23/2025 Results Created Date Observation Date Name Description Value Unit Range Abnormal Flag Note LastModifiedBy Organization Detail LastModifiedTime 11/11/1911/10/2024 gluco se, finge rstic k, blood Blood Glucose: mg/dl 193 Not Available [address], [address], 11/10/2024 11:14:25 12/24/19 25 12/23/2024 HbA1c (hemo globi n A1c), blood HbA1c 8.8 Not Available [address], [place], [address], 12/23/2024 09:43:38 12/31/1912/31/2024 URINA LYSIS , COMPL ETE specific gravity 1.024 1.005- 1.030 normal Not Available [facility] ([facility]) [address] [place], [address], 01/01/2025 08:26:18 12/31/1912/31/2024 URINA LYSIS , COMPL ETE pH 6.0 5.0-7. 5 normal Not Available [facility] ([facility]) [address] [place], [address], 01/01/2025 08:26:18 12/31/1912/31/2024 URINA LYSIS , COMPL ETE urine-color Yellow yellow Not Available [facility] ([facility]) [address] [place], [address], 01/01/2025 08:26:18 12/31/1912/31/2024 URINA LYSIS , COMPL ETE appearance Turbid clear abnormal Not Available [facility] ([facility]) [address] [place], [address], 01/01/2025 08:26:18 12/31/1912/31/2024 URINA LYSIS , COMPL ETE WBC esterase 2+ negati ve abnormal Not Available [facility] ([facility]) [address] [place], [address], 01/01/2025 08:26:18 12/31/1912/31/2024 URINA LYSIS , COMPL ETE protein 2+ negati ve/tra ce abnormal Not Available [facility] ([facility]) [address] [place], [address], 01/01/2025 08:26:18 12/31/19 25 12/31/2024 URINA LYSIS , COMPL ETE glucose 3+ negati ve abnormal Not Available [facility] ([facility]) [address] [place], [address], 01/01/2025 08:26:18 12/31/19 25 12/31/2024 URINA LYSIS , COMPL ETE ketones Negati ve negati ve Not Available [facility] ([facility]) [address] [place], [address], 01/01/2025 08:26:18 12/31/19 25 12/31/2024 URINA LYSIS , COMPL ETE occult blood 2+ negati ve abnormal Not Available [facility] ([facility]) [address] [place], [address], 01/01/2025 08:26:18 12/31/19 25 12/31/2024 URINA LYSIS , COMPL ETE bilirubin Negati ve negati ve Not Available [facility] ([facility]) [address] [place], [address], 01/01/2025 08:26:18 12/31/19 25 12/31/2024 URINA LYSIS , COMPL ETE urobilinogen ,semi-qn 0.2 mg/dL 0.2-1. 0 normal Not Available [facility] ([facility]) [address] [place], [address], 01/01/2025 08:26:18 12/31/1912/31/2024 URINA LYSIS , COMPL ETE nitrite, urine Negati ve negati ve Not Available [facility] ([facility]) [address] [place], [address], 01/01/2025 08:26:18 12/31/19 25 12/31/2024 URINA LYSIS , COMPL ETE microscopic examination See below: Micro scopi c was indic ated and was perfo rmed. Not Available [facility] ([facility]) [address] [facility], [place], [address], 01/01/2025 08:26:18 12/31/19 25 12/31/2024 URINA LYSIS , COMPL ETE WBC >30 /hpf 0 - 5 abnormal Clump s of leuko cytes prese nt. Not Available [facility] ([facility]) [address] [facility], [place], [address], 01/01/2025 08:26:18 12/31/19 25 12/31/2024 URINA LYSIS , COMPL ETE RBC >30 /hpf 0 - 2 abnormal Not Available [facility] ([facility]) [address] [facility], [place], [address], 01/01/2025 08:26:18 12/31/19 25 12/31/2024 URINA LYSIS , COMPL ETE epithelial cells (non renal) >10 /hpf 0 - 10 abnormal Not Available [facility]) [address] [facility], [place], [address], 01/01/2025 08:26:18 12/31/19 25 12/31/2024 URINA LYSIS , COMPL ETE epithelial cells (renal) HUMAN RESOURCES PROJECT COORDINATOR Not Available [facility]) [address] [facility], [place], [address], 01/01/2025 08:26:18 12/31/19 25 12/31/2024 URINA LYSIS , COMPL ETE casts None seen /lpf none seen Not Available [facility] ([facility]) [address] [facility], [place], [address], 01/01/2025 08:26:18 12/31/19 25 12/31/2024 URINA LYSIS , COMPL ETE cast type HUMAN RESOURCES PROJECT COORDINATOR Not Available [facility] ([facility]) [address] [facility], [place], [address], 01/01/2025 08:26:18 12/31/19 25 12/31/2024 URINA LYSIS , COMPL ETE crystals HUMAN RESOURCES PROJECT COORDINATOR Not Available [facility] ([facility]) [address] [facility], [place], [address], 01/01/2025 08:26:18 12/31/19 25 12/31/2024 URINA LYSIS , COMPL ETE crystal type HUMAN RESOURCES PROJECT COORDINATOR Not Available [facility] [address] [facility], [place], [address], 01/01/2025 08:26:18 12/31/19 25 12/31/2024 URINA LYSIS , COMPL ETE mucus threads Presen t not estab. Not Available [facility] ([facility]) [address] [facility], [place], [address], 01/01/2025 08:26:18 12/31/19 25 12/31/2024 URINA LYSIS , COMPL ETE bacteria Modera te none seen/f ew abnormal Not Available [facility] ([facility]) [address] [facility], [place], [address], 01/01/2025 08:26:18 12/31/1912/31/2024 URINA LYSIS , COMPL ETE yeast HUMAN RESOURCES PROJECT COORDINATOR Not Available [facility] ([facility]) [address] [facility], [place], [address], 01/01/2025 08:26:18 12/31/1912/31/2024 URINA LYSIS , COMPL ETE trichomonas HUMAN RESOURCES PROJECT COORDINATOR Not Available [facility]) [address] [facility], [place], [address], 01/01/2025 08:26:18 12/31/1912/31/2024 URINA LYSIS , COMPL ETE comment HUMAN RESOURCES PROJECT COORDINATOR Not Available [facility] ([facility]) [address] [place], [address], 01/01/2025 08:26:18 12/31/19 25 12/31/2024 URINA LYSIS , COMPL ETE microscopic examination HUMAN RESOURCES PROJECT COORDINATOR Not Available [facility] [address] [facility], [place], [address], 01/01/2025 08:26:18 12/31/1901/01/2025 URINE CULTU RE, ROUTI NE urine culture, routine Final report Not Available [facility] ([facility]) [address] [facility], [place], [address], 01/01/2025 08:26:18 12/31/19 25 01/01/2025 URINE CULTU RE, ROUTI NE result 1 COMMEN T Great er than 2 organ isms recov ered, none predo minan t. Pleas e submi t anoth er sampl e if clini nina indic ated. 50,00 0-100 ,000 colon y formi ng units per mL Not Available [facility] ([facility]) [address] [facility], [place], [address], 01/01/2025 08:26:18 01/07/20 25 01/07/2025 NUSWA B VAGIN ITIS PLUS (VG+) atopobium vaginae Low - 0 score Not Available [facility] ([facility]) [address] [facility], [place], [address], 01/08/2025 08:10:46 01/07/20 25 01/07/2025 NUSWA B VAGIN ITIS PLUS (VG+) bvab 2 Low - 0 score Not Available [facility] ([facility]) [address] [place], [address], 01/08/2025 08:10:46 01/07/20 25 01/07/2025 NUSWA B [...] prese nce of BV. Not Available [facility] ([facility]) [address] [place], [address], 01/08/2025 08:10:46 01/07/20 25 01/08/2025 NUSWA B VAGIN ITIS PLUS (VG+) megan albicans, LAI Negati ve negati ve Not Available [facility] ([facility]) [address] [place], [address], 01/08/2025 08:10:46 01/07/20 25 01/08/2025 NUA B VAGIN ITIS PLUS (VG+) megan glabrata, LAI Positi ve negati ve abnormal Publi shed data demon strat e that up to 65% of Tiana da glabr brandi ident ified in cases of vagin al tiana diasi s have decre ased susce ptibi lity to fluco nazol e. Not Available [facility] ([facility]) [address] [facility], [place], [address], 01/08/2025 08:10:46 01/07/20 25 01/08/2025 NUA B VAGIN ITIS PLUS (VG+) trich vag by LAI Negati ve negati ve Not Available [facility] ([facility]) [address] [place], [address], 01/08/2025 08:10:46 01/07/20 25 01/08/2025 NUSWA B VAGIN ITIS PLUS (VG+) chlamydia trachomatis, LAI Negati ve negati ve Not Available [facility] ([facility]) [address] [place], [address], 01/08/2025 08:10:46 01/07/20 25 01/08/2025 NUSWA B VAGIN ITIS PLUS (VG+) neisseria gonorrhoeae, LAI Negati ve negati ve Not Available [facility] ([facility]) [address] [facility], [place], [address], 01/08/2025 08:10:46 01/07/20 25 01/08/2025 URINE CULTU RE, ROUTI NE urine culture, routine Final report abnormal Not Available [facility] ([facility]) [address] [facility], [place], [address], 01/08/2025 08:10:47 01/07/20 25 01/08/2025 URINE CULTU [...] infec tions need not be perfo rmed routi max becau se nonsu scept ible isola geovanna are extre izaiah rare in any beta- hemol ytic strep tococ cus and have not been repor summer for Strep tococ cus pyoge rosanna (grou p A). (CLSI ) 25,00 0-50, 000 colon y formi ng units per mL Not Available [facility] ([facility]) [address] [facility], [place], [address], 01/08/2025 08:10:47 01/07/20 25 01/06/2025 urina lysis , dipst ick Leukocytes Trace Not Available [address], [address], 01/06/2025 09:46:41 01/07/20 25 01/06/2025 urina lysis , dipst ick Nitrite negati ve Not Available [address], [address], 01/06/2025 09:46:41 01/07/20 25 01/06/2025 urina lysis , dipst ick Urobilinogen .2 Not Available [address], [address], 01/06/2025 09:46:41 01/07/20 25 01/06/2025 urina lysis , dipst ick Protein 100 Not Available [address], [address], 01/06/2025 09:46:41 01/07/20 25 01/06/2025 urina lysis , dipst ick pH 6.0 Not Available [address], [address], 01/06/2025 09:46:41 01/07/20 25 01/06/2025 urina lysis , dipst ick Blood Large Not Available [address], [address], 01/06/2025 09:46:41 01/07/20 25 01/06/2025 urina lysis , dipst ick Specific Clio 1.025 Not Available [address], [address], 01/06/2025 09:46:41 01/07/20 25 01/06/2025 urina lysis , dipst ick Ketone Negati ve Not Available [address], [address], 01/06/2025 09:46:41 01/07/20 25 01/06/2025 urina lysis , dipst ick Bilirubin Negati ve Not Available [address], [address], 01/06/2025 09:46:41 01/07/20 25 01/06/2025 urina lysis , dipst ick Glucose Negati ve Not Available [address], [address], 01/06/2025 09:46:41 01/07/20 25 01/06/2025 urina lysis , dipst ick Appearance Cloudy Not Available [address], [address], 01/06/2025 09:46:41 01/07/20 25 01/06/2025 urina lysis , dipst ick Color Pale Yellow Not Available [address], [address], 01/06/2025 09:46:41 03/23/20 25 03/24/2025 FE+TI BC+FE R iron bind.cap.(TI BC) 324 ug/dL 250-45 0 normal Not Available [facility] ([facility]) [address] [place], [address], 03/24/2025 13:08:29 03/23/20 25 03/24/2025 FE+TI BC+FE R UIBC 292 ug/dL 118-36 9 normal Not Available [facility] ([facility]) [address] [place], [address], 03/24/2025 13:08:29 03/23/20 25 03/24/2025 FE+TI BC+FE R iron 32 ug/dL 27-139 normal Not Available [facility] ([facility]) [address] [place], [address], 03/24/2025 13:08:29 03/23/20 25 03/24/2025 FE+TI BC+FE R iron saturation 10 % 15-55 below low normal Not Available [facility] ([facility]) [address] [facility] [place], [address], 03/24/2025 13:08:29 03/23/20 25 03/24/2025 FE+TI BC+FE R ferritin 57 NG/mL 15-150 normal Not Available [facility] ([facility]) [address] [facility] [place], [address], 03/24/2025 13:08:29 03/23/20 25 03/24/2025 CBC WITH DIFFE RENTI AL/PL ATELE T WBC 5.5 x10e3 /uL 3.4-10 .8 normal Not Available [facility] ([facility]) [address] [facility], [place], [address], 03/24/2025 13:08:30 03/23/20 25 03/24/2025 CBC WITH DIFFE RENTI AL/PL ATELE T RBC 4.09 x10e6 /uL 3.77-5 .28 normal Not Available [facility] ([facility]) [address] [place], [address], 03/24/2025 13:08:30 03/23/20 25 03/24/2025 CBC WITH DIFFE RENTI AL/PL ATELE T hemoglobin 9.8 g/dL 11.1-1 5.9 below low normal Not Available [facility] ([facility]) [address] [place], [address], 03/24/2025 13:08:30 03/23/20 25 03/24/2025 CBC WITH DIFFE RENTI AL/PL ATELE T hematocrit 33.6 % 34.0-4 6.6 below low normal Not Available [facility] ([facility]) [address] [place], [address], 03/24/2025 13:08:30 03/23/20 25 03/24/2025 CBC WITH DIFFE RENTI AL/PL ATELE T MCV 82 fL 79-97 normal Not Available [facility] ([facility]) [address] [facility], [place], [address], 03/24/2025 13:08:30 03/23/20 25 03/24/2025 CBC WITH DIFFE RENTI AL/PL ATELE T MCH 24.0 pg 26.6-3 3.0 below low normal Not Available [facility] ([facility]) [address] [facility], [place], [address], 03/24/2025 13:08:30 03/23/20 25 03/24/2025 CBC WITH DIFFE RENTI AL/PL ATELE T MCHC 29.2 g/dL 31.5-3 5.7 below low normal Not Available [facility] ([facility]) [address] [facility], [place], [address], 03/24/2025 13:08:30 03/23/20 25 03/24/2025 CBC WITH DIFFE RENTI AL/PL ATELE T RDW 20.5 % 11.7-1 5.4 above high normal Not Available [facility] ([facility]) [address] [place], [address], 03/24/2025 13:08:30 03/23/20 25 03/24/2025 CBC WITH DIFFE RENTI AL/PL ATELE T platelets 207 x10e3 /uL 150-45 0 normal Not Available [facility] ([facility]) [address] [place], [address], 03/24/2025 13:08:30 03/23/20 25 03/24/2025 CBC WITH DIFFE RENTI AL/PL ATELE T neutrophils 67 % not estab. normal Not Available [facility] ([facility]) [address] [place], [address], 03/24/2025 13:08:30 03/23/20 25 03/24/2025 CBC WITH DIFFE RENTI AL/PL ATELE T lymphs 24 % not estab. normal Not Available [facility] ([facility]) [address] [facility], [place], [address], 03/24/2025 13:08:30 03/23/20 25 03/24/2025 CBC WITH DIFFE RENTI AL/PL ATELE T monocytes 7 % not estab. normal Not Available [facility] ([facility]) [address] [facility], [place], [address], 03/24/2025 13:08:30 03/23/20 25 03/24/2025 CBC WITH DIFFE RENTI AL/PL ATELE T eos 1 % not estab. normal Not Available [facility] ([facility]) [address] [facility], [place], [address], 03/24/2025 13:08:30 03/23/20 25 03/24/2025 CBC WITH DIFFE RENTI AL/PL ATELE T basos 0 % not estab. normal Not Available [facility] ([facility]) [address] [facility], [place], [address], 03/24/2025 13:08:30 03/23/20 25 03/24/2025 CBC WITH DIFFE RENTI AL/PL ATELE T immature cells HUMAN RESOURCES PROJECT COORDINATOR Not Available [facility]) [address] [place], [address], 03/24/2025 13:08:30 03/23/20 25 03/24/2025 CBC WITH DIFFE RENTI AL/PL ATELE T neutrophils (absolute) 3.8 x10e3 /uL 1.4-7. 0 normal Not Available [facility] ([facility]) [address] [place], [address], 03/24/2025 13:08:30 03/23/20 25 03/24/2025 CBC WITH DIFFE RENTI AL/PL ATELE T lymphs (absolute) 1.3 x10e3 /uL 0.7-3. 1 normal Not Available [facility] ([facility]) [address] [place], [address], 03/24/2025 13:08:30 03/23/20 25 03/24/2025 CBC WITH DIFFE RENTI AL/PL ATELE T monocytes(ab solute) 0.4 x10e3 /uL 0.1-0. 9 normal Not Available [facility] ([facility]) [address] [facility], [place], [address], 03/24/2025 13:08:30 03/23/20 25 03/24/2025 CBC WITH DIFFE RENTI AL/PL ATELE T eos (absolute) 0.0 x10e3 /uL 0.0-0. 4 normal Not Available [facility] ([facility]) [address] [facility], [place], [address], 03/24/2025 13:08:30 03/23/20 25 03/24/2025 CBC WITH DIFFE RENTI AL/PL ATELE T baso (absolute) 0.0 x10e3 /uL 0.0-0. 2 normal Not Available [facility] ([facility]) [address] [facility], [place], [address], 03/24/2025 13:08:30 03/23/20 25 03/24/2025 CBC WITH DIFFE RENTI AL/PL ATELE T immature granulocytes 1 % not estab. Not Available [facility] ([facility]) [address] [facility], [place], [address], 03/24/2025 13:08:30 03/23/20 25 03/24/2025 CBC WITH DIFFE RENTI AL/PL ATELE T immature grans (abs) 0.0 x10e3 /uL 0.0-0. 1 Not Available [facility] ([facility]) [address] [facility], [place], [address], 03/24/2025 13:08:30 03/23/20 25 03/24/2025 CBC WITH DIFFE RENTI AL/PL ATELE T NRBC HUMAN RESOURCES PROJECT COORDINATOR Not Available [facility] ([facility]) [address] [facility] [place], [address], 03/24/2025 13:08:30 03/23/20 25 03/24/2025 CBC WITH DIFFE IJEOMA AL/PL CHRIS T hematology comments: HUMAN RESOURCES PROJECT COORDINATOR Not Available [facility] ([facility]) [address] [facility] [place], [address], 03/24/2025 13:08:30 03/23/20 25 03/24/2025 COMP. METAB OLIC PANEL (14) glucose 204 mg/dL 70-99 above high normal Not Available [facility] ([facility]) [address] [facility] [place], [address], 03/24/2025 13:08:30 03/23/20 25 03/24/2025 COMP. METAB OLIC PANEL (14) BUN 11 mg/dL 8-27 normal Not Available [facility] ([facility]) [address] [facility] [place], [address], 03/24/2025 13:08:30 03/23/20 25 03/24/2025 COMP. METAB OLIC PANEL (14) creatinine 1.06 mg/dL 0.57-1 .00 above high normal Not Available [facility] ([facility]) [address] [facility] [place], [address], 03/24/2025 13:08:30 03/23/20 25 03/24/2025 COMP. METAB OLIC PANEL (14) eGFR 52 mL/mi n/1.7 3 >59 below low normal Not Available [facility] ([facility]) [address] [facility] [place], [address], 03/24/2025 13:08:30 03/23/20 25 03/24/2025 COMP. METAB OLIC PANEL (14) BUN/creatini ne ratio 10 12-28 below low normal Not Available [facility] ([facility]) [address] [facility] [place], [address], 03/24/2025 13:08:30 03/23/20 25 03/24/2025 COMP. METAB OLIC PANEL (14) sodium 142 mmol/ L 134-14 4 normal Not Available [facility] ([facility]) [address] [facility] [place], [address], 03/24/2025 13:08:30 03/23/20 25 03/24/2025 COMP. METAB OLIC PANEL (14) potassium 4.6 mmol/ L 3.5-5. 2 normal Not Available [facility] ([facility]) [address] [facility] [place], [address], 03/24/2025 13:08:30 03/23/20 25 03/24/2025 COMP. METAB OLIC PANEL (14) chloride 104 mmol/ L 96-106 normal Not Available [facility] ([facility]) [address] [facility] [place], [address], 03/24/2025 13:08:30 03/23/20 25 03/24/2025 COMP. METAB OLIC PANEL (14) carbon dioxide, total 19 mmol/ L 20-29 below low normal Not Available [facility] ([facility]) [address] [facility] [place], [address], 03/24/2025 13:08:30 03/23/20 25 03/24/2025 COMP. METAB OLIC PANEL (14) calcium 8.5 mg/dL 8.7-10 .3 below low normal Not Available [facility] ([facility]) [address] [facility] [place], [address], 03/24/2025 13:08:30 03/23/20 25 03/24/2025 COMP. METAB OLIC PANEL (14) protein, total 6.6 g/dL 6.0-8. 5 normal Not Available [facility] ([facility]) [address] [facility] [place], [address], 03/24/2025 13:08:30 03/23/20 25 03/24/2025 COMP. METAB OLIC PANEL (14) albumin 3.8 g/dL 3.7-4. 7 normal Not Available [facility] ([facility]) [address] [facility] [place], [address], 03/24/2025 13:08:30 03/23/20 25 03/24/2025 COMP. METAB OLIC PANEL (14) globulin, total 2.8 g/dL 1.5-4. 5 Not Available [facility] ([facility]) [address] [facility], [place], [address], 03/24/2025 13:08:30 03/23/20 25 03/24/2025 COMP. METAB OLIC PANEL (14) bilirubin, total 0.2 mg/dL 0.0-1. 2 normal Not Available [facility] ([facility]) [address] [facility] [place], [address], 03/24/2025 13:08:30 03/23/20 25 03/24/2025 COMP. METAB OLIC PANEL (14) alkaline phosphatase 100 IU/L 44-121 normal Not Available [facility] ([facility]) [address], [place], [address], 03/24/2025 13:08:30 03/23/20 25 03/24/2025 COMP. METAB OLIC PANEL (14) AST (SGOT) 20 IU/L 0-40 normal Not Available [facility] ([facility]) [address], [place], [address], 03/24/2025 13:08:30 03/23/20 25 03/24/2025 COMP. METAB OLIC PANEL (14) ALT (SGPT) 14 IU/L 0-32 normal Not Available [facility] ([facility]) [address], [place], [address], 03/24/2025 13:08:30 03/23/20 25 03/24/2025 VITAM IN B12 AND FOLAT E vitamin B12 590 pg/mL 232-12 45 normal Not Available [facility] ([facility]) [address], [place], [address], 03/24/2025 13:08:31 03/23/20 25 03/24/2025 VITAM IN B12 AND FOLAT E folate (folic acid), serum 6.4 NG/mL >3.0 normal A serum folat e denise ntrat ion of less than 3.1 ng/mL is consi dered to repre sent clini jennifer defic iency . Not Available [facility] ([facility]) [address], [place], [address], 03/24/2025 13:08:31 03/23/20 25 03/24/2025 MAGNE SIUM magnesium 2.4 mg/dL 1.6-2. 3 above high normal Not Available [facility] ([facility]) [address], [place], [address], 03/24/2025 13:08:32 04/23/20 25 04/23/2025 HbA1c (hemo globi n A1c), blood HbA1c 5.1 Not Available [address], [address], 04/21/2025 17:49:43 12/30/19 25 03/17/2018 colon oscop y proce dure (PROC ) No observ ation record ed. [email or web address] Not Available 12/29 17:34:21 01/22/20 25 01/21/2025 CT, abdom en + pelvi s, w/ contr ast No observ ation record ed. [address] ([facility]) [address], [place], [place], [address], 01/25/2025 14:19:49 03/14/20 25 03/14/2025 XR, chest No observ ation record ed. [facility] [address], [place], [address], 03/15/2025 08:28:23 03/15/20 25 03/15/2025 US, doppl er echoc ardio gram No observ ation record ed. [facility] [address], [place], [address], 03/15/2025 14:22:54 03/16/20 25 03/14/2025 elect rocar diogr am No observ ation record ed. [address], [place], [address], 03/16/2025 11:39:43 03/16/20 25 03/14/2025 elect rocar diogr am No observ ation record ed. [address], [place], [address], 03/16/2025 09:33:29 04/08/20 25 04/07/2025 imagi ng/di agnos tic resul t No observ ation record ed. [facility] [address], [place], [address], 04/08/2025 13:20:44 04/08/20 25 04/07/2025 imagi ng/di agnos tic resul t No observ ation record ed. [facility] [address], [place], [address], 04/08/2025 14:53:17 04/11/20 25 04/11/2025 imagi ng/di agnos tic resul t No observ ation record ed. [facility] [address], [place], [address], 04/11/2025 08:39:09 04/11/20 25 04/10/2025 imagi ng/di agnos tic resul t No observ ation record ed. [facility] [address], [place], [address], 04/11/2025 08:39:06 04/11/20 25 04/10/2025 CT, angio gram, abdom en + pelvi s + lower extre mity, w/wo contr ast No observ ation record ed. [email or web address] [facility] [address], [place], [address], 04/21/2025 13:54:02 Result Notes None recorded. Problems Name Problem SNOMED Code Status Onset Date Resolution Date Notes Provider Name and Address Organization Details Recorded Time Uncontro lled type 2 diabetes mellitus 707324163 Completed 201611/07/2021 Problem Code: 250.02; Problem Code Type: ICD-9; Not Available [facility] 21:53:25 Uncontro lled type 2 diabetes mellitus 202594678 Active 2016 Not Available [facility] 21:53:17 Acute lymphang itis of trunk 42386411 Completed 201606/10/2019 Problem Code: L03.329; Problem Code Type: ICD-10; Not Available [facility] 21:53:18 Cellulit is of abdomina l wall 84996671 Completed 201606/10/2019 Problem Code: L03.311; Problem Code Type: ICD-10; Not Available [facility] 21:53:19 Cellulit is and abscess of trunk 086365931 Completed 201611/07/2021 Problem Code: 682.2; Problem Code Type: ICD-9; Not Available [facility] 21:53:30 Pain of left hip joint 96079454979 9100 Completed 201606/10/2019 Problem Code: M25.552; Problem Code Type: ICD-10; Not Available [facility] 21:53:19 Pain of hip region 25988644 Completed 201611/07/2021 Problem Code: 719.45; Problem Code Type: ICD-9; Not Available [facility] 21:53:28 Uncontro lled type 2 diabetes mellitus 032073073 Completed 201605/26/2018 Not Available [facility] 2 21:53:17 Diarrhea 73514828 Completed 201604/29/2017 Problem Code: R19.7; Problem Code Type: ICD-10; Not Available [facility] 2 21:53:28 Acute cystitis 47579393 Completed 201604/09/2017 Problem Code: N30.01; Problem Code Type: ICD-10; Not Available [facility] 2 21:53:26 Candidal otitis externa 24855333 Completed 201608/02/2017 Problem Code: B37.84; Problem Code Type: ICD-10; Not Available [facility] 2 21:53:17 Otalgia of left ear Completed 201606/17/2017 Not Available [facility] 2 21:53:17 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 11:32:18 Otogenic otalgia 34475665 Completed 201606/17/2017 Problem Code: 388.71; Problem Code Type: ICD-9; Not Available [facility] 21:53:27 Late effects of cerebrov ascular disease 388753820 Completed 201611/07/2021 Problem Code: 438.9; Problem Code Type: ICD-9; Not Available [facility] 21:53:32 Mixed hyperlip idemia 223695625 Completed 201605/26/2018 Problem Code: E78.2; Problem Code Type: ICD-10; Not Available [facility] 21:53:17 Hyperten sive disorder 36107129 Active 2016 Problem Code: I10; Problem Code Type: ICD-10; Not Available [facility] 2 21:53:17 Abnormal weight gain 407520415 Completed 201608/17/2017 Problem Code: R63.5; Problem Code Type: ICD-10; Not Available [facility] 2 21:53:22 Benign essentia l hyperten nay 6312565 Active 2016 Problem Code: 401.1; Problem Code Type: ICD-9; Not Available [facility] 2 21:53:27 Non-bull ous impetigo 535749877 Completed 201609/14/2017 Problem Code: L01.01; Problem Code Type: ICD-10; Not Available [facility] 2 21:53:18 Neck pain 18349832 Completed 201609/14/2017 Not Available [facility] 2 21:53:19 Impetigo 06980782 Completed 201609/14/2017 Problem Code: 684; Problem Code Type: ICD-9; Not Available [facility] 2 21:53:32 Acute sinusiti s 39037383 Completed 201712/24/2017 Problem Code: J01.90; Problem Code Type: ICD-10; Not Available [facility] 2 21:53:18 Acute bronchit is 07416042 Completed 201702/08/2018 Problem Code: J20.9; Problem Code Type: ICD-10[facility]ros[facility]:32[facility]18 Diarrhea 42402168 Completed 201702/18/2018 Problem Code: R19.7; Problem Code Type: ICD-10; Not Available [facility] 2 21:53:21 Acute cystitis 34181102 Completed 201703/08/2018 Problem Code: N30.01; Problem Code Type: ICD-10; Not Available [facility] 2 21:53:26 Dysuria 16335429 Completed 201705/10/2018 Problem Code: R30.9; Problem Code Type: ICD-10; Erik Frederick, SEED TECHNICIAN [address] [facility], [place], [address] , [employer] 5 09:45:34 Urinary tract infectio us disease 54464776 Completed 201705/10/2018 Problem Code: 599.0; Problem Code Type: ICD-9; CARMELO COSTELLOKEITHR null, [employer] 2 11:32:18 Constipa tion 63552137 Completed 201707/06/2022 Problem Code: 564.0; Problem Code Type: ICD-9; CARMELO COSTELLONEAR null, [employer] 2 11:32:18 Abnormal weight gain 974231758 Completed 201707/25/2018 Problem Code: R63.5; Problem Code Type: ICD-10; Not Available [facility] 2 21:53:23 Influenz a 0183777 Completed 201706/19/2018 Problem Code: J10.1; Problem Code Type: ICD-10; Not Available [facility] 2 21:53:18 Acute bronchit is 00990220 Completed 201708/04/2018 Problem Code: J20.8; Problem Code Type: ICD-10; CARMELO COSTELLOKEITHR null, [employer] 2 11:32:18 Influenz a with non-resp iratory manifest ation 23801718 Completed 201706/19/2018 Problem Code: 487.8; Problem Code Type: ICD-9; Not Available [facility] 2 21:53:28 Low back pain 493378499 Completed 201807/06/2022 Problem Code: M54.5; Problem Code Type: ICD-10; CARMELO COSTELLOKEITHR null, [employer] 2 11:32:18 Lumbar spondylo sis 302359694 Completed 201801/05/2020 Problem Code: M47.26; Problem Code Type: ICD-10; Not Available [facility] 2 21:53:19 Low back pain 191188765 Completed 201801/05/2020 Problem Code: M54.5; Problem Code Type: ICD-10; CARMELO becerra, [employer] 2 11:32:18 Nausea 810863481 Completed 201807/06/2022 Problem Code: R11.0; Problem Code Type: ICD-10; CARMELO becerra, [employer] 2 11:32:18 Acute bronchit is 92359585 Completed 201807/06/2022 Problem Code: J20.9; Problem Code Type: ICD-10; CARMELO becerra, [employer] 2 11:32:18 General examinat ion of patient Completed 201811/07/2021 Not Available [facility] 2 21:53:23 Atherosc lerosis of coronary artery without angina pectoris 62233482960 4103 Active 2018 Not Available [facility] 2 21:53:23 Urinary tract infectio us disease 47340659 Completed 201805/09/2020 Problem Code: N39.0; Problem Code Type: ICD-10; CARMELO becerra, [employer] 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 47019921 Active 2019 Problem Code: D51.9; Problem Code Type: ICD-10; Not Available [facility] 2 21:53:17 Otitis externa of bilatera l ears 47608605446 83149 Completed 201905/09/2020 Problem Code: H60.333; Problem Code Type: ICD-10; Not Available [facility] 2 21:53:17 Finding of general energy 836044668 Completed 201905/09/2020 Problem Code: R53.83; Problem Code Type: ICD-10; Not Available [facility] 2 21:53:22 Dysuria 35294521 Completed 201907/06/2022 Problem Code: R30.0; Problem Code Type: ICD-10; Erik Frederick APRN [address] [place], [address] , [employer] 5 09:45:34 Urinary tract infectio us disease 44253538 Completed 201905/09/2020 Problem Code: N39.0; Problem Code Type: ICD-10; CARMELO TRANGNEAR null, [employer] 2 11:32:18 Urinary tract infectio us disease 81210107 Completed 201905/09/2020 Problem Code: N39.0; Problem Code Type: ICD-10; CARMELO MYNEAR null, [employer] 2 11:32:18 Dysuria 09320344 Completed 201905/09/2020 Problem Code: R30.0; Problem Code Type: ICD-10; Erik Frederick APRN [address] [place], [address] , [employer] 5 09:45:34 Tobacco dependen ce caused by cigarett es 73072898655 845234 Active 2019 Problem Code: F17.210; Problem Code Type: ICD-10; Not Available [facility] 2 21:53:17 Influenz a vaccine needed 26042054654 06 Completed 201911/08/2020 Problem Code: Z23; Problem Code Type: ICD-10; CARMELO TRANGNEAR null, [employer] 2 11:32:18 Urinary tract infectio us disease 82098800 Completed 202006/05/2021 Problem Code: N39.0; Problem Code Type: ICD-10; CARMELO TRANGNEAR null, [employer] 2 11:32:18 General examinat ion of patient Active 2020 Not Available [facility] 21:53:23 Body mass index 25-29 - overweig 594099292 Active 2020 Problem Code: Z68.28; Problem Code Type: ICD-10; Not Available [facility] 21:53:24 Influenz a vaccine needed 85787306714 06 Completed 202007/06/2022 Problem Code: Z23; Problem Code Type: ICD-10; CARMELO MYNEAR null, [employer] 2 11:32:18 Dizzines s and giddines s 117902960 Completed 202107/06/2022 Problem Code: R42; Problem Code Type: ICD-10; CARMELO MYNEAR null, [employer] 11:32:18 Acute respirat ory infectio ns 427305584 Completed 202107/06/2022 Problem Code: J22; Problem Code Type: ICD-10; CARMELO MYNEAR null, [employer] 2 11:32:18 Myositis 18765841 Completed 202107/06/2022 Problem Code: M60.9; Problem Code Type: ICD-10; CARMELO MYNEAR null, [employer] 11:32:18 Cough 33031092 Completed 202101/29/2022 Problem Code: R05; Problem Code Type: ICD-10; Not Available [facility] 21:53:20 Urinary tract infectio us disease 44613274 Completed 202107/06/2022 Problem Code: N39.0; Problem Code Type: ICD-10; CARMELO MYNEAR null, [employer] 2 11:32:18 Chronic systolic heart failure 124168204 Active 2023 Erik Frederick APRN [address] [place] [address], [address] , [employer] 4 13:46:49 Moderate recurren t major depressi on 74520484 Active 2023 Erik Frederick APRN [address] [place] [address], [address] , [employer] 4 16:09:53 Mild dementia 50567854447 4108 Active 2023 Erik Frederick APRN [address] [place] [address], [address] [place] [address] , [employer] 4 13:51:34 Renal tract candidia sis 575993326 Active 2024 Erik Frederick APRN [address] [place] [address], [address] [place] [address] , [employer] 5 10:50:24 Dysuria 56128451 Active 2024 Erik Frederick APRN [address] [place] [address], [address] [place] [address] , [employer] 5 09:45:34 Vaginiti s 06877826 Active 2024 Erik Frederick APRN [address] [place] [address], [address] [place] [address] , [employer] 5 10:11:56 Incision al hernia 253338115 Active 2024 Erik Frederick APRN [address] [place] [address], [address] [place] [address] , [employer] 5 10:12:26 Chronic primary bladder pain syndrome Active 2024 Erik Frederick APRN [address] [place] [address], [address] [place] [address] , [employer] 5 12:57:37 Candidia sis 41914978 Active 2024 Erik Frederick APRN [address] [place] [address], [address] [place] [address] , [employer] 5 12:57:46 Atrial fibrilla tion with rapid ventricu lar response 85125963184 9109 Active 2024 Erik Frederick APRN [address] [place] [address], [address] , [employer] 13:56:55 Iron deficien cy anemia 89750045 Active 2024 Erik Frederick APRN [address] [place] [address], [address] , [employer] 13:57:07 Chronic diarrhea 117601795 Active 2024 Erik Frederick APRN [address] [place] [address], [address] , [employer] 14:12:37 Injury of right leg 97231665932 537737 Active 2024 Erik Frederick APRN [address] [place] [address], [address] , [employer] 10:52:57 Notes:*Problem Name: Celluli tis of ankle *Problem Status: Acute *Comments: *Problem Code: 682.6 *Problem Code Type: ICD-9 *Note Date: 12/10/2017 Problem Notes None recorded. Procedures Surgical History Date Name Laterality Status Provider Name and Address Organization Details Recorded Time 05/11/20 24 Pacemaker completed Erik Frederick APRN [address] [place] [address], [address], [employer] 05/18/2024 13:07:53 05/11/20 24 placement of stent in coronary artery completed Erik Frederick APRN [address] [place] [address], [address], [employer] 05/18/2024 13:08:19 11/13/19 24 Cerumen Removal completed Erik Frederick APRN [address] [place] [address], [address], [employer] 11/17/2023 18:30:04 11/09/19 23 open reduction of fracture with internal fixation completed Erik Frederick APRN [address] [place] [address], [address], [place] [employer] 11/20/2022 10:33:35 06/06/20 22 Most Recent Mammogram completed CARMELO COSTELLOJACK [employer]. 11/13/2023 15:19:19 12/25/19 17 placement of stent in coronary artery completed Not Available [facility] 04/24/2022 22:56:18 12/25/19 17 hysterectomy completed Not Available [facility] 022 22:56:18 Imaging Results None recorded. Procedure Notes None recorded. Medical Equipment None Reported. Allergies Allergen ID Allergen Name Allergen Category Reaction Reaction Severity Criticality Documentation Date Start Date Code Code System Note Provider Name and Address Organization Details Recorded Time 02981 Substance with sulfonami de structure and antibacte rial mechanism of action (substanc e) medicatio n Not available Not available Not available 04/24/2022 99819 8003 SNOMED Shyann Rawls hernan, [employer] 3 08:50:19 11547 Jardiance medicatio n Not available Not available Not available 04/24/2022 39956 59 RxNorm Not Available [facility] 2 22:57:08 43756 Pyridium medicatio n Not available Not available Not available 04/24/2022 8998 RxNorm Not Available [facility] 2 22:57:08 Medications Name Sig Start Date [...] Not Available No t Available Fluzone High-Dose 4956-8805 (PF) 180 mcg/0.5 mL intramuscul ar syringe [...] Updated DateTime 5 170.18 cm 20.5 kg/m2 60200.6 g 98 [degF] 81 /min 95 % 95 % 139/72 mm[Hg] [employer] 5 09:36:23 Date Recorded Body height Body mass index (BMI) Body weight Body temperature Heart rate Oxygen saturation Oxygen saturation in Arterial blood by Pulse oximetry Systolic And Diastolic Provider Name and Address Organization Details Last Updated DateTime 5 170.18 cm 20.5 kg/m2 48317.6 g 98 [degF] 115 /min 94 % 94 % 95/56 mm[Hg] [employer] 5 10:33:29 Date Recorded Body height Body mass index (BMI) Body weight Body temperature Heart rate Oxygen saturation Oxygen saturation in Arterial blood by Pulse oximetry Systolic And Diastolic Provider Name and Address Organization Details Last Updated DateTime 5 170.18 cm 20.9 kg/m2 71874.2 2 g 98 [degF] 66 /min 95 % 95 % 110/51 mm[Hg] [employer] 5 09:40:35 Date Recorded Body height Body mass index (BMI) Body weight Body temperature Heart rate Oxygen saturation Oxygen saturation in Arterial blood by Pulse oximetry Systolic And Diastolic Provider Name and Address Organization Details Last Updated DateTime 5 170.18 cm 20.1 kg/m2 46374.9 8 g 98.1 [degF] 60 /min 99 % 99 % 131/50 mm[Hg] [employer] 5 13:51:25 Date Recorded Body height Body mass index (BMI) Body weight Body temperature Heart rate Oxygen saturation Oxygen saturation in Arterial blood by Pulse oximetry Systolic And Diastolic Provider Name and Address Organization Details Last Updated DateTime 5 170.18 cm 20 kg/m2 74569.6 7 g 98 [degF] 60 /min 98 % 98 % 139/59 mm[Hg] CARMELO COSTELLOJACK [employer] 10:28:37 Social History Question Answer Notes LastModified by Organizat ion Details LastModified Time Tobacco Smoking Status Current Every Day Smoker Shyann Sinai becerra [employer] 10/08/2022 08:50:45 Do You Have An Advance [...] Do You Have A Medical Power Of Replacer? No Information not available 07/06/2022 What Was [...] available 10/08 08:50:35 Medical History Condition Response Coronary Artery Disease Y COPD Y High Cholesterol Y Diabetes Y Hypertension Y Gynecological History Statement/Question Response Most Recent Mammogram 06/06/2022 Obstetrics History GPAL:G 0 P 0 0 0 0 Immunizations Vaccine Type Date Status Note Provider Nam e and Address Organization Details Recorded Time zoster recombinant 4 completed Erik Frederick, MIGUEL [address] [place], [address], [employer] 01/26/2024 20:55:37 Influenza, split virus, quadrivalent, preservative 8 completed CARMELO MYNEAR null, [employer] 07/06/2022 11:25:37 Influenza, split virus, quadrivalent, PF 1 completed CARMELO MYNEAR null, [employer] 07/06/2022 11:25:37 Influenza, MDCK, quadrivalent, PF 0 completed CARMELO MYNEAR null, [employer] 07/06/2022 11:25:38 Influenza, MDCK, quadrivalent, preservative 9 completed CARMELO MYNEAR null, [employer] 07/06/2022 11:25:38 pneumococcal polysaccharide PPV23 9 completed CARMELO MYNEAR null, [employer] 07/06/2022 11:25:37 Influenza, split virus, trivalent, PF 7 completed Not Available [facility] 06/01/2023 10:23:36 Influenza, high-dose, quadrivalent, PF 2 completed CARMELO MYNEAR null, [employer] 07/06/2022 11:25:37 COVID-19, mRNA, LNP-S, PF, 100 mcg/0.5mL dose or 50 mcg/0.25mL dose 1 completed CARMELO MYNEAR null, [employer] 07/06/2022 11:25:37 COVID-19, mRNA, LNP-S, PF, 100 mcg/0.5mL dose or 50 mcg/0.25mL dose 1 completed CARMELO MYNEAR null, [employer] 07/06/2022 11:25:37 Hep A, adult 9 completed CARMELO MYNEAR null, [employer] 07/06/2022 11:25:38 Hep A, adult 9 completed CARMELO MYNEAR null, [employer] 07/06/2022 11:25:38 COVID-19, mRNA, LNP-S, PF, 100 mcg/0.5mL dose or 50 mcg/0.25mL dose 1 completed CARMELO MYNEAR null, [employer] 07/06/2022 11:25:38 COVID-19, mRNA, LNP-S, PF, 100 mcg/0.5mL dose or 50 mcg/0.25mL dose 2 completed CARMELO MYNEAR null, [employer] 07/06/2022 11:25:38 COVID-19, mRNA, LNP-S, bivalent, PF, 50 mcg/0.5 mL or 25mcg/0.25 mL dose 3 completed Tiara Abram null, [employer] 01/18/2023 14:51:22 SARS-COV-2 (COVID-19) vaccine, UNSPECIFIED 4 completed CARMELO MYNEAR null, [employer] 06/29/2024 11:45:18 influenza, unspecified formulation 4 completed CARMELO MYNEAR null, [employer] 06/29/2024 11:45:34 COVID-19, mRNA, LNP-S, PF, 50 mcg/0.5 mL 3 completed Not Available [facility] 04/23/2025 09:57:51 Influenza, high-dose, quadrivalent, PF 3 completed Not Available [facility] 04/23/2025 09:57:51 Past Encounters Encounter ID Performer Location Encounter Start Date Encounter Closed Date Diagnosis/Indication Diagnosis SNOMED-CT Code Diagnosis ICD10 Code Diagnosis IMO Codes Diagnosis Note [id number] Erik O[address]iel[address] [address] 07/06/2022 10:55:06 07/06/2022 12:37:51 Type 2 diabetes mellitus without complication 215430761 E11.9 I have gone through her medication s with her today, instructin g her on medication adherence, and given her [...] for the next 2 weeks. Essential hypertension 97931898 I10 Atheroscle rosis of coronary artery without angina pectoris 9836548334 27836 I25.10 Megaloblas tic anemia due to vitamin B>12< deficiency 90179719 D51.9 Low back pain 507701889 M54.50 [id number] Erik Frederick [address] [address] 10/09/2022 14:05:21 10/09/2022 16:05:14 Atherosclerosis of coronary artery without angina pectoris 5187297075 79581 I25.10 Stop smoking. Medication compliance and DASH diet emphasized . I would like Dr Chery to see her for Cardio clearance for cystoscopy . Uncontroll ed type 2 diabetes mellitus 079313568 E11.65 A1c improved. Bereavement 67317740 Z63 .4 Add low dose Lexapro 10 mg nightly. Essential hypertension 76638547 I10 Hyperlipidemia 82953789 E78.5 Tobacco de pendence caused by cigarettes 2486054130 0054297 F17.210 [id number] Erik Otoniel [address] 0 11/20/2022 10:15:15 11/20/2022 10:56:10 Type 2 diabetes mellitus without complication 784834967 E11.9 Continue current meds. Bereavement 91979345 Z63 .4 Continue Lexapro. [id number] Erik Frederick [place] [address] 01/08/2023 13:15:28 01/08/2023 14:03:55 Bradycardia 78949472 R00.1 Daughter was given instructio ns today [...] any another cause. Candidiasis of vagina 72 407363 B37.31 [id number] Erik Frederick [address] 0 01/18/2023 14:44:42 01/18/2023 16:05:17 Bradycardia 09163182 R00.1 Patient to proceed to [facility] via POV with daughter, she declined EMS. She has suspected new onset sick sinus syndrome. Report called to Dr Jacobsen at [facility]. Recent records and med lists sent to ER with pt. [id number] [place] [address] 01/28/2023 10:41:15 01/28/2023 11:24:14 Acute kidney injury 39003801 N17.9 Stop Actos. Continue Tradjenta. Hydration emphasized . Bradycardia 89330583 R00 .1 Monitor at home and keep close Cardio f/up appt, avoid all rate lowering medication s. Heart fail ure with normal ejection fraction [id number] I50.30 May need low dose lasix pending renal labs but she appears euvolemic today. Skin lesion 72589014 L98 .9 Horn lesion right forearm [id number] [place] [address] 02/18/2023 11:27:03 02/18/2023 12:19:42 Chronic kidney disease due to type 2 diabetes mellitus 4750837612 08 E11.22 Continue current medication s, emphasized adequate hydration and avoidance of NSAID drugs. She is to keep her cardiology follow-up appointmen t that is scheduled for later this month. Daughter is to assist her with her medication management . [id number] [place] [address] 0 06/01/2023 10:22:44 06/01/2023 11:01:13 Recurrent urinary tract infection 217379329 N39.0 Start macrobid and diflucan and culture urine which was not done at . Candidiasis of vagina 72 734051 B37.31 [id number] [place] [address] 0 06/19/2023 09:25:47 06/19/2023 10:16:14 Recurrent urinary tract infection 363377815 N39.0 I will ask staff to contact Urology and and for an appt for pt REMY. Start cipro, obtain UA and culture. Start bethanecol . Obtain KUB today. She likely needs cystoscopy with possible urethral dilation. Vaginitis 59137714 N76.0 Diflucan daily, obtain vaginal swab. Candidiasis of vagina 72 737570 B37.31 [id number] [place] [address] 0 07/05/2023 13:41:05 07/05/2023 14:34:56 Pain of right knee joint 5798791502 99742 M25.561 Possible medial meniscus partial tear during hyperexten nay movement. She is not a candidate for oral nsaids. Obtain x ray, ice, rest, use of voltaren gel and tylenol explained. May need MRI and Ortho consult if pain persists despite the above interventi ons. [id number] [place] [address] 0 11/13/2023 14:50:25 11/13/2023 17:25:21 Type 2 diabetes mellitus without complication 943547609 E11.9 Continue current meds. Chronic ob structive pulmonary disease 95075471 J44.9 Impacted c erumen in right ear 4599333097 839036 H61.21 Insomnia 004244432 G47.0 0 Sleep hygiene explained. Tobacco de pendence caused by cigarettes 2419039566 2062986 F17.210 Smoking cessation encouraged . Body mass index 20-24 - normal 212565194 Z68.22 [id number] [place] [address] 0 01/20/2024 13:38:16 01/20/2024 14:58:14 Insomnia 919180862 G47.00 Sleep hygiene explained. Remeron was uneffectiv e, trial Trazodone. Diarrhea 45007128 R19.7 Active or passive immunization 821927719 Z23 Body mass index 20-24 - normal 597268396 Z68.22 Tobacco de pendence caused by cigarettes 4925294341 4488614 F17.210 Smoking cessation encouraged . [id number] [place] [address] 0 02/25/2024 13:21:08 02/25/2024 14:57:54 Uncontrolled type 2 diabetes mellitus 039227987 E11.65 A1c improved. Chronic sy stolic heart failure 845935034 I50.22 Compliance with Entresto emphasized . DASH diet, daily weights, and BP monitoring discussed. Moderate r ecurrent major depression 29246740 F33.1 Trial elavil. 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 Body mass index 20-24 - normal 556391830 Z68.22 [id number] Erik Frederick [address] [address] 04/29/2024 13:24:15 04/29/2024 14:13:10 Mild dementia 6140852075 09878 F03.A0 Start aricept and exelon patch. Daughter is to assist her with meds. She does not drive anymore. Likely vascular dementia complicate d by depression when her spouse last year. Adequate nutrition, daily routine and sleep schedule encouraged . Falls safety encouraged . 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 She is to take a womens MVI daily. Acute glossitis 07225357 6 K14.0 Moderate r ecurrent major depression 15016595 F33.1 Coronary atherosclerosis 982590399 I25.10 Atheroscle rosis of coronary artery without angina pectoris 9318908573 33449 I25.10 Stop smoking. Medication compliance and DASH diet emphasized . I would like Dr Chery to see her for Cardio clearance for cystoscopy . Chronic sy stolic heart failure 752022667 I50.22 Entresto stopped due to cost. Start Losartan and lasix. [id number] Erik Frederick [address] [address] 06/29/2024 11:04:34 06/29/2024 12:22:06 Renal disorder due to type 2 diabetes mellitus 066041508 E11.21 No changes to DM med regimen today. Adequate hydration and nutrition emphasized . Falls safety again discussed. 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 She is to take a womens MVI daily. [id number] Erik Frederick[address] [address] 09/29/2024 11:34:08 09/29/2024 12:34:46 Uncontrolled type 2 diabetes mellitus 706593800 E11.65 Her DM is grossly uncontroll ed. Start glipizide, continue tradjenta, begin Lantus 20 units at bedtime. I would like to see her taking Jardiance but she could not tolerate it previously due to severe vaginitis. Cannot take GLP1 due to underweigh t. She is mostly eating candy and carbs per her daughter. CRITICAL CARE NURSE here performed DM insulin teaching with pt [...] tic anemia due to vitamin B>12< deficiency 53915045 D51.9 B12 injection today. She is to take a womens MVI daily. Body mass index less than 20 250640613 Z68.1 Mild dementia 2243144152 56103 F03.A0 Could not tolerate aricept or Exelon. Tobacco de pendence caused by cigarettes 0913382768 8190323 F17.210 Smoking cessation encouraged . [id number] [place] [address] 11/10/2024 10:55:11 11/10/2024 11:49:10 Uncontrolled type 2 diabetes mellitus 328597596 E11.65 Increase Lantus to 25 units at bedtime. 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 She is to take a womens MVI daily. [id number] [place] [address] 12/02/2024 09:26:58 12/02/2024 09:55:15 Gout 80612270 M10.9 Right great toe., Likely gout, but due to presentati on in toe and not the MTP joint, will also cover for cellulitis . Her daughter is to update me in 4 days. Elevate, cool compress, avoid eating pork. Cellulitis of toe of right foot 0138344643 L03.031 Moderate r ecurrent major depression 21217604 F33.1 Refill Elavil. 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 She is to take a womens MVI daily. Renal trac t candidiasis 666233380 B37.49 3467195 [id number] Erik Frederick [address] [address] 01/06/2025 09:27:29 01/06/2025 11:06:06 Dysuria 13110309 R30.0 16264 Vaginitis 28294864 N76.0 966110 Obtain vaginitis swab. Urine is turbid but NEG for UTI and recent urine culture on was NEG for growth. Daughter was instructed on nightly use of boric acid supp for 3-5 nights. Incisional hernia 160895 000 K43.2 5750614 Left lower abdomen, obtain CT to evaluate complexity . Alarm sx for hernia explained to pt and her daughter. Acute diarrhea 026076118 R19.7 91564 Restart daily probiotic, obtain stool panel. [id number] Erik Frederick [address] [address] 03/23/2025 13:28:51 03/23/2025 14:49:36 Atrial fibrillation with rapid ventricular response 4079665128 54056 I48.91 2154338 Continue follow-up with cardiology and take medication s as per their instructio ns. Iron defic iency anemia 83929591 D50.9 07311761 Obtain post transfusio n labs. Begin B 12 and ferrous sulfate. She has a pernicious anemia hx. Refer to Hematology . She is high risk right now for colonoscop y due to afib and xarleto - complicate d cardic history in a smoker with COPD and DM 2 on insulin. Chronic diarrhea 6922615 09 K52.9 25534 Lomotil refilled. She would be high risk for colonoscop y. [id number] Erik Frederick, [address] [address] 04/23/2025 09:56:44 04/23/2025 11:23:26 Uncontrolled type 2 diabetes mellitus 781847068 E11.65 Injury of right leg 1186 597656 5491204 S81.801D 83933513 Goals Section Goal Description Progress Status Start Date LastModified by Organization Details LastModified Time Activitie s of Daily Living Performs activities of daily living independently or with minimal assistance NoCchantale active 2023 Norma Church Information not available 12/24/2023 19:11:45 Hemoglobi n A1C Lowers or maintains hemoglobin A1C (HbA1c) as per care team recommendation (s) [TARGET: less than or equal to 7%] improving active 2023 ERIK FREDERICK Information not available 04/23/2025 14:34:07 Smoking Cessation Quits smoking NoCchantale active 2023 Norma Church Information not available 12/24/2023 19:11:45 Follow-up Appointme nt(s) Attends referral and/or follow-up appointment(s) as per care team recommendation (s) NoCchantale active 2023 Norma Church Information not available [...] Member ID Howard Member ID Guarantor Name 04/23/2025 1 [place] (MEDICARE REPLACEMENT REGIONAL PPO) [id number] Lida Germainolph [id number] 23 Claribel Skelton Costa 04/23/2025 1 [employer] (MEDICARE REPLACEMENT/AD VANTAGE - HMO) Lida Theodore Costa [id number] Claribel eGrmainshoaib Skelton 04/23/2025 [place] 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 Began 3-4 days ago. She is diabetic. She is unable to sleep if the bed linens touch her foot. She has no problem with the nail in that foot. The pain is keeping her awake. Erik Frederick, SEED TECHNICIAN [address] [facility], [place], [address], [facility] [employer], [facility]. 12/02/2024 09:56:42 5 text/html Diabetes F/UReported by PatientHPIFor context, patient [...] which has resolved. Erik Frederick APRN [address] [place], [address], [employer] 12/27/2024 17:04:10 5 text/html ROS as noted in the HPI [...] for 3 weeks. Erik Frederick APRN [address] [place], [address], [employer] 01/07/2025 14:17:14 5 text/html Hospitalization Contact RecordReported by PatientHospitalization Contact RecordFor follow up, patient reportshospital: __ ([facility]Lida was admitted to the hospital due to acute onset of A-fib with RVR with significant new onset anemia.ROS as noted in the HPI Erik Frederick APRN [address] [place], [address], [employer] 04/20/2025 20:50:31 OBGyn Episode No OBEpisode recorded.
--- OUTSIDE RECORDS SUMMARY | 2025-05-18 17:55 | XMS_ITS | Encounter Summary ---
Author Organization [facility] Address [address] [place] [address] Care Team Providers Care Slot Service Specialist Name Role Phone Cate Frederick APRN Primary Care Provider [phone] Encounter Details Date Type Department Care Team (Late st Contact Info) Description 02/15/2025 Results Follow-Up [facility] [address], [address] [place] [address] Mary Cross APRN [address] [place] [address] Social History Tobacco Use Types [...] documented as of this encounter Care Teams Slot Service Specialist Relationship Specialty Start Date End Date Cate Frederick APRN [address] [place] [address] PCP - General 02/09/22 documented as of this encounter
--- OUTSIDE RECORDS SUMMARY | 2025-05-18 17:55 | XMS_ITS | Clinical Summary ---
Author Organization [facility] Address [address] [place] [address] Care Team Providers Care Editor Farm Journal Name Role Phone Cate Frederick APRN Primary [...] 06/28/2023 Candiduria 01/16/2023 Nodule of kidney 01/16/2023 Incomplete emptying of bladder 10/04/2022 Atrophic vaginitis 10/04/2022 Urinary frequency 10/04/2022 Urinary urgency 10/04/2022 Resolved Problems Problem Noted Date Diagnosed Date Resolved Date Recurrent UTI 10/04/2022 05/09/2025 Encounters Date Type Department Care Team Description 03/12/2025 Orders Only [facility] [address] [address] Mary Cross APRN Candiduria (Primary Dx); Radha glabrata infection 03/11/2025 Telephone [facility] [address] [address] Mary Cross APRN HCN - Patient Message (Missed call ) 03/09/2025 Telephone [facility] [address] [place] [address] Mary Cross APRN HCN Clinical Concern/Question 03/05/2025 Telephone [facility] [address] [facility] [place] [address] Day, Dayana D 03/01/2025 Results Follow-Up [facility] [address] [place] [address] Soha Gomez APRN, DNP 02/26/2025 1:15 PM EDT Clinical Support [facility] [address], [address] [place] [address] Chelsea oCle LPN Candiduria (Primary Dx) 02/26/2025 Travel 02/25/2025 1:15 PM EDT Clinical Support [facility] [address], [address] [place] [address] Marek Bello Candiduria (Primary Dx); Radha glabrata infection 02/25/2025 Travel 02/24/2025 1:30 PM EDT Clinical Support [facility] [address], [address] [place] [address] Germaine Francisco LPN Recurrent UTI (Primary Dx) 02/24/2025 Travel 02/23/2025 1:15 PM EDT Clinical Support [facility] [address], [address] [place] [address] Chelsea Cole LPN Radha glabrata infection (Primary Dx) 02/23/2025 Travel 02/22/2025 1:15 PM EDT Clinical Support [facility] [address], [address] [place] [address] Chelsea Cole LPN Radha glabrata infection (Primary Dx) 02/22/2025 Travel 02/18/2025 11:00 AM EDT Procedure Visit [facility] [address], [address] [place] [address] Chelsea Cole LPN Radha glabrata infection (Primary Dx) 02/18/2025 Travel 02/17/2025 9:40 AM EDT Procedure Visit [facility] [address], [address] [place] [address] Mary Cross, PROGRAM DEVELOPMENT MANAGER Candiduria (Primary Dx); Radha glabrata infection 02/17/2025 Travel 02/16/2025 Orders Only [facility] [address], [address] [place] [address] Mary Cross, MIGUEL Radha glabrata infection (Primary Dx); Candiduria 02/15/2025 Results Follow-Up [facility] [address], [address] [place] [address] Mary Cross, PROGRAM DEVELOPMENT MANAGER from Last 3 Months Family History Medical [...] 0.5 70.3 Started: 01/23/1955 Smokeless Tobacco: Never Tobacco Cessation:Ready [...] 02/25/2025 1:21 PM EDT Plan of Treatment Health Maintenance Due Date Last Done Comments [facility]-Bone Density Scan 1940 [facility]-Medicare Annual Wellness (AWV) 1940 [facility]-Infant/Child/Adol SDOH Screenings 1940 [facility]- SDOH Screenings 1958 [facility]-Adult SDOH Screenings 1958 [facility]-DTaP,Tdap,and Td Vaccines (1 - Tdap) 1959 [facility]-Zoster Vaccines (1 of 2) 1990 [facility]-RSV Vaccine: 60+ Years or (1 - 1-dose 75+ series) 2015 [facility]-Pneumococcal Vaccine: 50+ Years (2 of 2 - PCV) 06/10/2020 06/10/2019 [id number] Vaccine (5 - season) 2025 03/29/2022, 04/27/2021, 10/13/2020, Additional history exists [facility]-Influenza Vaccine (#1) 2025 06/04/2024, [facility]-Depression Screening 02/24/2026 02/24/2025, 1104/2023 [facility]-Hepatitis A Vaccines Aged Out 07/25/2019, 01/17 [...] URINALYSIS DIPSTICK Routine 02/17/2025 9:56 AM EDT from Last 3 Months Results [...] Final Result Performing Organization Address [facility] Co de Phone Number [facility] [address] [place] [address] * (ABNORMAL) Fungal Culture, Routine (02/23/2025 1:48 PM EDT) Culture Heavy Growth Radha glabrata(A) 03/03/2025 9:36 AM EDT [facility] Comment: This isolate has been identified using the FDA Approved DocSpera [place] System Edited result: Previously reported as Yeast on 02/26/2025 at 0938 EDT. Urine Urine specimen obtained by clean catch procedure / Unknown Non-blood Collection / Unknown 02/23/2025 1:48 PM EDT 02/23/2025 4:41 PM EDT us Mary Cross APRN LAB MICROBIOLOGY - GENERAL ORDERABLES Final Result Performing Organization Address [facility] Co de Phone Number [facility] [address] [place] [address] * Urine Culture (02/23/2025 1:48 PM EDT) Pathologist [facility] Culture No growth at day 1 02/25/2025 11:[address] [facility] Urine Urine specimen obtained by clean catch procedure / Unknown Non-blood Collection / Unknown 02/23/2025 1:48 PM EDT 02/23/2025 4:41 PM EDT us Mary Cross APRN LAB MICROBIOLOGY - GENERAL ORDERABLES Final Result Performing Organization Address City/[facility]/ZIP Co de Phone Number [facility] [address] [place] [address] * (ABNORMAL) POCT URINALYSIS DIPSTICK (02/17/2025 9:56 AM EDT) POCT Urine Color Yellow 02/17/2025 9:58 AM EDT [facility] POCT Urine Clarity Clear 02/17/2025 9:58 AM EDT [facility] POCT Urine Glucose >=1000(A) Negative mg/dL 02/17/2025 9:58 AM EDT [facility] POCT Urine Bilirubin Negative Negative mg/dL 02/17/2025 9:58 AM EDT [facility] POCT Urine Ketones Trace(A) Negative mg/dL 02/17/2025 9:58 AM EDT [facility] POCT Urine Specific Ashley 1.025 1.005 - 1.030 02/17/2025 9:58 AM EDT [facility] POCT Urine Blood Large(A) Negative 02/17/2025 9:58 AM EDT [facility] POCT pH, Urine 5.5 5.0 - 8.0 02/17/2025 9:58 AM EDT [facility] POCT Protein, Urine >=300(A) Negative mg/dL 02/17/2025 9:58 AM EDT [facility] POCT Urobilinogen, Urine 0.2 0.2, 1.0 EU/dL 02/17/2025 9:58 AM EDT [facility] POCT Nitrite, Urine Negative Negative 02/17/2025 9:58 AM EDT [facility] POCT Urine Leukocyte Esterase Small(A) Negative 02/17/2025 9:58 AM EDT [facility] Urine 02/17/2025 9:56 AM EDT 02/17/2025 9:58 AM EDT Mary Cross APRN LAB POINT OF CARE TEST DOCKED DEVICE UNSOLICITED RESULTS Final Result Performing Organization Address City/State/[facility] Co de Phone Number [facility] [address], [place] from Last 3 Months Insurance [facility] MEDIC[facility] Care Teams Editor Farm Journal Relationship Specialty Start Date End Date Cate Frederick APRN [address] [place], [place] [id number] PCP - General 02/09/22
--- OUTSIDE RECORDS SUMMARY | 2025-05-18 17:55 | XMS_ITS | Encounter Summary ---
Author Organization [facility] Address [address] [place] [address] Care Team Providers Care Sales Attendant Building Materials Name Role Phone Cate Frederick APRN Primary Care Provider [phone] Encounter Details Date Type Department Care Team (Late st Contact Info) Description 03/01/2025 Results Follow-Up [facility] [address], [address] [place] [address] Soha Gomez APRN, DNP [address] [place] [address] Social History Tobacco Use Types [...] as of this encounter Care Teams Sales Attendant Building Materials Relationship Specialty Start Date End Date Cate Frederick, MIGUEL [address] [place] [address] PCP - General 02/09/22 documented as of this encounter
--- NOTE | 2025-05-18 18:14 | ECG_ITS ---
APPROVED REPORT Exam: Resting ECG HR:60 bpm ECG Measurements Heart Rate 60 AXES AK 226 P 263 QRSd 120 QRS 16 QT 353 T 95 QTc 353 Conclusion ELECTRONIC ATRIAL PACEMAKER SEPTAL MYOCARDIAL INFARCTION , OF INDETERMINATE AGE [40+ ms Q WAVE IN V1/V2] ABNORMAL ECG UNCONFIRMED REPORT Electronically signed by : ZITA OSEI, 05/20/2025 23:06:39
--- NOTE | 2025-05-18 18:24 | PC.NURSE ---
FSBS reading critically low at this time.
[2025-05-18] MEDS: DEXTROSE 50% 50ML SYRINGE (CRASH CART) 50 ML IVP ×3 (18:35→22:29)
--- NOTE | 2025-05-18 18:43 | CT_ITS ---
PROCEDURE INFORMATION: Exam: CT Pelvis Without Contrast, Skeleton Exam date and time: 05/18/2025 8:27 PM Age: 85 years old Clinical indication: Injury or trauma; Fall; Additional info: Fall, L si tender TECHNIQUE: Imaging protocol: Computed tomography of the pelvis without contrast. Exam focused on the skeleton. Radiation optimization: All CT scans at this facility use at least one of these dose optimization techniques: automated exposure control; mA and/or kV adjustment per patient size (includes targeted exams where dose is matched to clinical indication); or iterative reconstruction. COMPARISON: CT ABDOMEN PELVIS W CON 01/21/2025 10:14 AM FINDINGS: Bones/joints: Disc bulging at L4-L5 and L5-S1. No acute fracture. No dislocation. Soft tissues: Soft tissue swelling involving the left gluteus musculature with surrounding stranding indicating contusion/hematoma. Diverticulosis in the sigmoid without diverticulitis IMPRESSION: No acute fracture or dislocation Hematoma in the left gluteus muscle
--- NOTE | 2025-05-18 18:43 | CT_ITS ---
PROCEDURE INFORMATION: Exam: CT Head Without Contrast Exam date and time: 05/18/2025 8:23 PM Age: 85 years old Clinical indication: Injury or trauma; Fall TECHNIQUE: Imaging protocol: Computed tomography of the head without contrast. Radiation optimization: All CT scans at this facility use at least one of these dose optimization techniques: automated exposure control; mA and/or kV adjustment per patient size (includes targeted exams where dose is matched to clinical indication); or iterative reconstruction. COMPARISON: CT HEAD/BRAIN WO CON 05/09/2024 7:18 AM FINDINGS: Brain: Periventricular and subcortical white matter areas of hypoattenuation, likely chronic small vessel ischemic change, demyelination, or gliosis. No intracranial mass, acute hemorrhage, or acute infarction. Cerebral ventricles: No ventriculomegaly. Paranasal sinuses: Visualized sinuses are unremarkable. No fluid levels. Mastoid air cells: Normal as visualized. Bones: Unremarkable. No acute fracture. Soft tissues: Unremarkable. Vasculature: Atherosclerotic vascular disease. IMPRESSION: No acute intracranial abnormality.
--- NOTE | 2025-05-18 18:45 | CT_ITS ---
PROCEDURE INFORMATION: Exam: CTA Abdomen and Pelvis With Contrast Exam date and time: 05/18/2025 8:30 PM Age: 85 years old Clinical indication: Injury or trauma; Fall; Additional info: Fall on anticoagulation TECHNIQUE: Imaging protocol: Computed tomographic angiography of the abdomen and pelvis with contrast. Exam focused on the arteries. 3D rendering (Not supervised by radiologist): MIP and/or 3D reconstructed images were created by the technologist. Radiation optimization: All CT scans at this facility use at least one of these dose optimization techniques: automated exposure control; mA and/or kV adjustment per patient size (includes targeted exams where dose is matched to clinical indication); or iterative reconstruction. Contrast material: ISOVUE; Contrast volume: 75 ml; Contrast route: INTRAVENOUS (IV); COMPARISON: CT BONY PELVIS 05/18/2025 8:27 PM FINDINGS: Aorta: No aortic aneurysm. No aortic dissection. 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 50% stenosis origin SMA Renal arteries: 50% stenosis origin left renal artery. 60% stenosis proximal right renal artery Right iliac arteries: No occlusion or significant stenosis. Left iliac arteries: No occlusion or significant stenosis. Liver: No mass. Gallbladder and biliary ducts: Unremarkable. No calcified stones. No ductal dilation. Pancreas: Unremarkable. No mass. No ductal dilation. Spleen: Heterogeneous areas of hypodensity involving the inferior spleen . There is also seen a simple cyst in the anterior spleen 2.3 cm Adrenal glands: Unremarkable. No mass. Kidneys and ureters: Unremarkable. No solid mass. No hydronephrosis. Stomach and bowel: Diverticulosis in the sigmoid without diverticulitis. Constipation. No colitis or bowel obstruction Appendix: Appendix normal Intraperitoneal space: Unremarkable. No free air. No significant fluid collection. Lymph nodes: Unremarkable. No enlarged lymph nodes. Urinary bladder: Unremarkable. No mass. Reproductive: Hysterectomy Bones/joints: Degenerative changes in the lumbar spine and chronic fracture of L2 and L1. Soft tissues: There is hematoma in the left gluteal musculature which is enlarged with surrounding stranding and contains areas of mild contrast extravasation. 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 IMPRESSION: 1. There is hematoma in the left gluteal musculature which is enlarged with surrounding stranding and contains areas of mild contrast extravasation. 2. Heterogeneous areas of hypodensity involving the inferior spleen . This could be due to contrast bolus timing but cannot exclude malignancy. These findings are new from previous exam in 12/06/2024 3. 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 50% stenosis origin SMA 5. 50% stenosis origin left renal artery 6. 60% stenosis proximal right renal artery
--- NOTE | 2025-05-18 18:45 | [facility].EDGENADL ---
Discharge Plan Disposition Patient Disposition: Xfer Short-Term Hosp Prescriptions Prescriptions: No Action Tradjenta 5 mg tablet 5 mg PO DAILY cyanocobalamin (vitamin B-12) [Vitamin B-12] 2,500 mcg tablet, sublingual 2,500 mcg PO DAILY Patient Comments: DISSOLVE 1 TABLET UNDER THE TONGUE EVERY DAY ferrous sulfate 325 mg (65 mg iron) tablet 325 mg PO DAILY Patient Comments: TAKE 1 TABLET BY MOUTH EVERY DAY Xarelto 15 mg tablet 15 mg PO QPMWITHMEAL Qty: 30 5RF (DME) blood-glucose meter [OneTouch Verio Flex meter] Mis See Rx Instructions .ROUTE .MEDSUPPLY Qty: 1 Patient Comments: test blood glucose twice a day Rx Instructions: As directed glipizide 5 mg tablet extended release 24hr 5 mg PO DAILY Patient Comments: TAKE ONE TABLET BY MOUTH EVERY MORNING FOR DIABETES (DME) OneTouch Verio test strips Strip See Rx Instructions .ROUTE .MEDSUPPLY Qty: 10 Patient Comments: Use as directed to check glucose twice daily Rx Instructions: As directed (DME) pen needle, diabetic [BD Ultra-Fine Nai Pen Needle] 32 gauge x 5/32 needle See Rx Instructions .ROUTE .MEDSUPPLY Qty: 1200 Patient Comments: Use as directed with insulin Rx Instructions: As directed (DME) lancets [OneTouch Delica Plus Lancet] 33 gauge misc See Rx Instructions .ROUTE .MEDSUPPLY Qty: 100 Patient Comments: Use as directed to test blood glucose twice daily Rx Instructions: As directed amiodarone 200 mg tablet 200 mg PO BID 30 Days Qty: 60 1RF clopidogrel 75 MG tablet 75 mg PO DAILY amitriptyline 50 mg tablet 50 mg PO HS atorvastatin 40 mg tablet 40 mg PO HS Patient Comments: TAKE 1 TABLET BY MOUTH AT BEDTIME NIGHTLY insulin glargine [Lantus Solostar U-100 Insulin] 100 unit/mL (3 mL) insulin pen 30 unit SQ HS 30 Days Qty: 0 0RF Patient Comments: Inject 20 units every day by subcutaneous route at bedtime, for diabetes. Referrals Follow up/Referrals: Cate Frederick [Primary Care Provider, Medical] - See instructions Clinical Impressions Clinical Impression: Adverse effect of sulfonylurea, Hematoma, Hypoglycemia Print Language Print Language: Italian Discharge ED Provider: Saul Fajardo General Adult HPI General Chief complaint: Dizziness Stated complaint: weakness,fell and hurt tailbone days ago Time Seen by Provider: 05/18/25 18:00 Mode of Arrival: Wheelchair Source of Information: Patient and Relative Description of Symptoms (Recalled from ER Triage Doc. by RN): pt to the ED with daughter with confusion and tail bone pain after a fall 2 days ago. pt reports she doesnt recall the fall but is having tail bone pain. pt daughter stated they brought her in today because she got dizzy and was light headed at home approx 30 minutes ago. pt is alert and oriente to self, place and situation. 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 Patient has had 2 ground-level falls at her home over the last 48 hours both striking her tailbone. Denies striking her upper back or head. She has frequent bleeding wounds at baseline given her anticoagulation and antiplatelet status. Tetanus is up-to-date. She did not pass out completely but it was noticed that her sugar was low today and they gave her food and her sugar was still low because in bed, become concerned and presented for continued evaluation. Patient denies chest pain or anterior abdominal pain as well as acute extremity pain. She is complaining only of posterior pelvic pain. No other acute complaints at this time. Please note that above description of symptoms, in this electronic medical record under categorization of recalled from ER triage doctor by RN are reflective of an initial nursing assessment, however, is not reflective of my full history and physical exam that was personally taken and clarified. Consequentially, this preceding description of symptoms, which may include the patient's categorized chief complaint in the EMR, do not reflect my personal clinical impression, and the ultimate description of history of present illness and patient stated complaints should be deferred to this section of the note. Unless stated otherwise or congruent with this section of the note, additional signs, symptoms, or incongruence should be interpreted as inaccurate with my clinical impression. Related Data Home Medications ?Medication ?Instructions ?Recorded ?Confirmed clopidogrel 75 mg tablet 75 mg PO DAILY 04/21/21 04/13/25 linagliptin 5 mg tablet (Tradjenta) 5 mg PO DAILY 08/15/22 04/13/25 amitriptyline 50 mg tablet 50 mg PO HS 05/03/24 04/13/25 blood sugar diagnostic (OneTouch #10 ea 10/01/24 04/13/25 Verio test strips) blood-glucose meter (OneTouch #1 ea 10/01/24 04/13/25 Verio Flex Meter) glipizide 5 mg tablet, extended 5 mg PO DAILY 10/01/24 04/13/25 release 24 hr lancets 33 gauge (OneTouch Delica #100 ea 10/01/24 04/13/25 Plus Lancet) pen needle, diabetic 32 gauge x #1,200 ea 10/01/24 04/13/25 (BD Ultra-Fine Nai Pen Needle) atorvastatin 40 mg tablet 40 mg PO HS 03/14/25 04/13/25 cyanocobalamin (vitamin B-12) 2,500 mcg PO DAILY 04/08/25 04/13/25 2,500 mcg sublingual tablet (Vitamin B-12) ferrous sulfate 325 mg (65 mg 325 mg PO DAILY 04/08/25 04/13/25 iron) tablet Previous Rx's ?Medication ?Instructions ?Recorded rivaroxaban 15 mg tablet (Xarelto) 15 mg PO QPMWITHMEAL #30 tabs 06/10/24 insulin glargine 100 unit/mL (3 30 unit (0.3 mL) SQ HS 30 days #0 03/16/25 mL) subcutaneous pen (Lantus mL Solostar U-100 Insulin) amiodarone 200 mg tablet 200 mg PO BID 30 days #60 tabs 05/18/25 Allergies Allergy/AdvReac Type Severity Reaction Status Date / Time Sulfa (Sulfonamide Allergy Unknown Unknown Verified 04/13/25 10:27 Antibiotics) allergy reaction Penicillins Allergy Other Verified 04/13/25 10:27 PFSH PFS Disclaimer: The information contained in this section may have been updated after the patient was seen, as this information can be updated by other users. 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 Dizziness History of cardiac pacemaker in situ Hypotension Atrial flutter Pre-syncope Descending thoracic aortic aneurysm Abnormal echocardiogram Diabetes mellitus Symptomatic bradycardia Shortness of Breath COPD (chronic obstructive pulmonary disease) Hyperlipidemia Hypertension Aortic heart murmur Coronary artery disease Abnormal electrocardiogram [ECG] [EKG] Encounter for pre-operative cardiovascular clearance Surgical History History of coronary artery stent placement Family History Father Family history of myocardial infarction Social History Smoking Status: Unknown if ever smoked second hand exposure: Yes alcohol intake: never substance use type: denies use current occupational status: retired Travel in the last 8 weeks?: None household members: spouse housing: house current occupation: [employer] current occupational exposures/hazards: No caffeine: No Have you lived/traveled outside [place] in past 30 days?: No Contact w/someone who lives/traveled outside [place] past 30 days?: No Exposure to someone with infectious disease in past 14 days?: No Do you have a fever (greater than 100.4 F or 38 C)?: No Have you tested positive for COVID-19?: No Exposed to someone with COVID-19 in past 14 days?: No Do you have a sore throat?: No Do you have a cough?: No Do you have any weakness?: No Do you have any diarrhea?: No Are you experiencing any unusual bleeding?: No Do you have any muscle aches/pain?: No Do you have any abdominal pain?: No Are you experiencing loss of taste or smell?: No Other Medical History Have you received the Flu Vaccine for this season: No Have you received the Pneumonia Vaccine: Yes ROS Obtained: Yes Systems reviewed as appropriate & no additional complaints except as documented Physical Exam General General appearance: alert and in no apparent distress Head Head exam: atraumatic and normocephalic Eye Eye exam: Present PERRL and EOMI ENT ENT exam: Present mucous membranes moist Neck Neck exam: Present normal inspection Chest Chest inspection: Present normal inspection and symmetric chest wall rise Respiratory Respiratory exam: Present normal lung sounds bilaterally; Absent respiratory distress Cardiovascular Cardiovascular exam: Present regular rate and normal rhythm Abdominal Exam Abdominal exam: Present soft; Absent tenderness, guarding or rebound Extremities Exam Extremities exam: Present other (Scattered bruises and wounds over the bilateral upper and lower extremities. No bony tenderness. Palpable pulses bilaterally.) Back Exam Back exam: Present tenderness (Left sacroiliac tenderness, no midline spinal tenderness no right sacroiliac tenderness.) Neurological Exam Neurological exam: Present alert and oriented X3; Absent motor sensory deficit Psychiatric Psychiatric exam: Present normal affect Skin Skin exam: Present warm, dry and other Medical Decision Making Medical Records Screening: Per USPSTF and CDC recommendations, given the prevalence of disease in our region, it is our hospital?s policy to screen for HIV and viral Hepatitis for all patients aged 18 and over and those with ongoing risk factors. Edwardo Inquiry Pt receiving controlled substance: No Vital Signs: 05/18/25 17:41 05/18/25 18:17 05/18/25 18:31 Temperature 97.6 F Temperature Source Oral Pulse Rate 60 60 Pulse Rate [Left Radial] 60 Respiratory Rate 16 21 25 H Blood Pressure 178/69 H 168/58 H Blood Pressure [Right Arm] 153/81 H Blood Pressure Mean Blood Pressure Mean [Right Arm] 105 Blood Pressure Source [Right Arm] Automatic Cuff Blood Pressure Position [Right Arm] Sitting 02 Sat by Pulse Oximetry 99 98 99 Oxygen Delivery Method Room Air 05/18/25 19:00 05/18/25 19:31 05/18/25 20:01 Temperature Temperature Source Pulse Rate 60 57 L Pulse Rate [Left Radial] Respiratory Rate 28 H 22 Blood Pressure 167/98 H 130/52 L 198/79 H Blood Pressure [Right Arm] Blood Pressure Mean Blood Pressure Mean [Right Arm] Blood Pressure Source [Right Arm] Blood Pressure Position [Right Arm] 02 Sat by Pulse Oximetry 99 97 Oxygen Delivery Method 05/18/25 20:13 05/18/25 21:01 05/18/25 21:30 Temperature Temperature Source Pulse Rate 61 Pulse Rate [Left Radial] Respiratory Rate Blood Pressure 150/65 H 161/58 H Blood Pressure [Right Arm] Blood Pressure Mean 93 92 Blood Pressure Mean [Right Arm] Blood Pressure Source [Right Arm] Blood Pressure Position [Right Arm] 02 Sat by Pulse Oximetry 98 Oxygen Delivery Method 05/18/25 22:01 Temperature Temperature Source Pulse Rate 60 Pulse Rate [Left Radial] Respiratory Rate Blood Pressure 128/47 L Blood Pressure [Right Arm] Blood Pressure Mean 74 Blood Pressure Mean [Right Arm] Blood Pressure Source [Right Arm] Blood Pressure Position [Right Arm] 02 Sat by Pulse Oximetry 99 Oxygen Delivery Method Lab Data Lab Results 05/18/25 18:25: WBC 5.5, RBC 3.31 L, Hgb 9.8 L, Hct 30.6 L, MCV 92.4, MCH 29.6, MCHC 32.0, RDW 20.9 H, Plt Count 171, MPV 11.0 H, Neut % (Auto) 72.3, Lymph % (Auto) 19.2, [place] % (Auto) 7.1, Eos % (Auto) 0.2, Baso % (Auto) 0.5, Neut # (Auto) 4.0, Lymph # (Auto) 1.1, [place] # (Auto) 0.4, Eos # (Auto) 0.0, Baso # (Auto) 0.0, Sodium 136, Potassium 4.9, Chloride 101, Carbon Dioxide 24, Anion Gap 15.9 H, BUN 35 H, Creatinine 1.60 H, Estimated Creat Clear 23, Estimated GFR 31 L, Est GFR ( Amer) 37 L, Glucose 39 L*, Calcium 8.8, Total Bilirubin 0.7, AST 50 H, ALT 33, Alkaline Phosphatase 105, Total Protein 7.1, Albumin 4.1, Globulin 3.0, Albumin/Globulin Ratio 1.4 05/18/25 18:25 05/18/25 18:25 Orders (Tests/Meds): ED MEDICATIONS Generic Name Dose Route Start Last Admin Trade Name Freq PRN Reason Stop Dose Admin Dextrose/Sodium Chloride 1,000 mls @ 100 mls/hr 05/18/25 19:30 05/18/25 19:59 Dextrose 10%-0.45% Nacl 1000ml IV 06/17/25 19:29 100 mls/hr .Q10H ABRAHAM Administration Sodium Chloride 10 ml 05/18/25 20:37 05/18/25 20:39 Sodium Chloride 0.9% 10ml Syr (Rad Only) IV 06/17/25 20:36 10 ml NEEDED PRN Administration Maintain IV Site Discontinued Medications Generic Name Dose Route Start Last Admin Trade Name Freq PRN Reason Stop Dose Admin Dextrose 50 ml 05/18/25 18:31 05/18/25 18:35 Dextrose 50% 50ml Syringe (Crash Cart) IVP 05/18/25 18:32 50 ml ONCE ONE Administration Dextrose 50 ml 05/18/25 19:24 05/18/25 19:25 Dextrose 50% 50ml Syringe (Crash Cart) IVP 05/18/25 19:25 50 ml ONCE ONE Administration Dextrose 50 ml 05/18/25 22:05 Dextrose 50% 50ml Syringe (Crash Cart) IVP 05/18/25 22:06 ONCE ONE Octreotide Acetate 100 mcg/ 51 mls @ 102 mls/hr 05/18/25 19:25 05/18/25 20:45 Sodium Chloride IV 05/18/25 19:26 Infused ONCE ONE Infusion Iopamidol 80 ml 05/18/25 20:37 05/18/25 20:39 Iopamidol-370 (76%);100ml Bottle IV 05/18/25 20:38 80 ml ONCE ONE Administration ORDERS Category Date Time Status CT angio abdomen pelvis Stat Cat Scan 05/18/25 18:[address] bony pelvis Stat Cat Scan 05/18/25 18:[address] head/brain wo con Stat Cat Scan 05/18/25 18:43 Completed CBC w/Auto Diff [Complete Blood Count Auto Diff] Stat Lab 05/18/25 18:25 Completed CMP [Comprehensive Metabolic Panel] Stat Lab 05/18/25 18:25 Completed ECG Data Tracing #1: Independently inter by me rate is 60, rhythm is regular, axis is normal, no ST elevation in anatomical contiguous leads, atrial paced, QTc 353. Medical Decision Narrative: In summary patient is a 85-year-old female with past medical history of scrota above presents emergency department for evaluation of low blood glucose and trauma to her pelvis sustained from a fall. Patient is hemodynamically stable nontoxic-appearing upon arrival, afebrile. Patient is tender over left sacroiliac joint. She is on anticoagulants and antiplatelets. Fingerstick upon arrival is undetectably low. Repeat fingerstick undetectably low. Patient is mentating well attempt oral intake IV access is obtained and administer an amp of D50. After D50 was administered sugar in the low 100s. Workup will be conducted with hematologic labs and CT angio abdomen and pelvis CT bony pelvis as well as noncontrasted CT scan of the head. CT of the cervical spine as well as CT angio chest was considered but will be deferred given history and physical exam. Glucose will be obtained every 15 minutes. Initial fingerstick blood glucose after D50 had good response however subsequent fingersticks was undetectably low. D50 biliary readministered, octreotide will be administered. Patient will be on dextrose containing maintenance fluids. Initial hematologic labs reviewed by me no transfusable anemia, there is mild BOWEN. CTA abdomen pelvis there is a hematoma in the left gluteal musculature with contrast extravasation. No acute fracture. Noncontrasted CT scan no acute intracranial abnormality. Patient has history of heart failure with preserved ejection fraction and does not appear volume overloaded will give gentle crystalloid resuscitation 500 cc lactated Ringer's. Multiple fingersticks were uptrending and then peaked at 200s and began downtrending again. Will have patient p.o. at bedside and keep close monitoring on this. Given trauma with gluteal hematoma, persistent hypoglycemia in setting of sulfonylurea will talk to [facility] at this time. Dr. Lora with [facility] will review the images and call me back. Patient was graciously accepted for continued evaluation [facility] at this time. Critical Care Critical Care Time Critical Care Time: Yes Attestation: On 05/18/25, the high probability of a clinically significant, sudden or life threatening deterioration of the following system(s) required my full and direct attention, intervention and personal management. The time I documented below is in addition to time spent performing reported procedures but includes the following listed in this critical care notation. Total Time Total Critical Care Time: 45
--- NOTE | 2025-05-18 19:16 | PC.NURSE ---
Report received from Linda GAXIOLA Pt awake alert and oriented Skin pink warm and dry Resp full and easy. Speech clear and appropriate. Pt resting quietly in recliner chair
[2025-05-18 19:23] LABS: Hematocrit 30.6 % (37.0-47.0); Hemoglobin 9.8 g/dL (12.2-16.2); Immature Granulocytes % 0.7 %; Mean Corpuscular HGB Conc 32.0 g/dL (31.8-35.4); Mean Corpuscular Hemoglobin 29.6 pg (27.0-31.2); Mean Corpuscular Volume 92.4 fl (81-99); Nucleated Red Blood Cells % 0 %; Platelet Count 171 K/mm3 (142-424); Red Blood Count 3.31 M/mm3 (4.20-5.40); Red Cell Distribution Width-SD 71.3 fL; White Blood Count 5.5 K/mm3 (4.8-10.8)
[2025-05-18 19:44] LABS: Alanine Aminotransferase 33 U/L (12-78); Albumin Level 4.1 g/dl (3.5-5.0); Albumin/Globulin Ratio 1.4 (1.1-1.8); Alkaline Phosphatase 105 U/L (38-126); Anion Gap 15.9 mEq/L (5-15); Aspartate Amino Transferase 50 U/L (14-36); Bilirubin,Total 0.7 mg/dl (0.2-1.3); Blood Urea Nitrogen 35 mg/dl (7-17); Calcium 8.8 mg/dl (8.4-10.2); Carbon Dioxide 24 mmol/L (22.0-30.0); Chloride 101 mmol/L (98-107); Creatinine Clearance Estimated 23 mL/min (50-200); Creatinine,Serum 1.60 mg/dl (0.52-1.04); Estimated Glomerular Filt Rate 31 ml/min (>60); GFR (African American) 37 ML/MIN (>60); Globulin 3.0 g/dL (1.3-3.2); Potassium 4.9 mmoL/L (3.5-5.1); Sodium 136 mmol/L (136-145); Total Protein,Serum 7.1 g/dl (6.3-8.2)
[2025-05-18 19:48] LABS: Glucose 39 mg/dl (74-100)
[2025-05-18] MEDS: SODIUM CHLORIDE 0.9% IV (19:54)
[2025-05-18] MEDS: OCTREOTIDE ACETATE IV (19:54)
[2025-05-18] MEDS: DEXTROSE 10 % AND 0.45 % NACL 1,000 ML 100 ML IV (19:59)
--- NOTE | 2025-05-18 20:03 | PC.NURSE ---
Pt ate a sandwich Awake alert and oriented to her baseline Famiy at bedside
--- NOTE | 2025-05-18 20:22 | PC.NURSE ---
Pt in CT via stretcher
[2025-05-18] MEDS: SODIUM CHLORIDE 0.9% 10ML SYR (RAD ONLY) 10 ML IV (20:39)
[2025-05-18] MEDS: IOPAMIDOL-370 (76%);100ML BOTTLE 80 ML IV (20:39)
--- NOTE | 2025-05-18 20:42 | PC.NURSE ---
Patients FSBS is 220.
--- NOTE | 2025-05-18 20:44 | PC.NURSE ---
Pt back from CT Accu check 220
--- NOTE | 2025-05-18 21:52 | PC.NURSE ---
spoke with for a transfer. stated they would call back
--- NOTE | 2025-05-18 21:57 | PC.NURSE ---
Patients FSBS is 131.
--- NOTE | 2025-05-18 22:41 | PC.NURSE ---
Report called to Klarissa at ED Pt transported to via [facility] ambulance by [facility] via stretcher
== END 2025-05-18 22:44 | disposition short-term general hospital (02) ==
PROVIDERS: Emergency Provider Emergency Medicine; PCP Nurse Practitioner Family
DX: E11.649 Type 2 diabetes mellitus with hypoglycemia without coma (principal); T38.3X5A Adverse effect of insulin and oral hypoglycemic [antidiabetic] drugs, initial encounter; S30.0XXA Contusion of lower back and pelvis, initial encounter; M53.3 Sacrococcygeal disorders, not elsewhere classified; W19.XXXA Unspecified fall, initial encounter; Z79.01 Long term (current) use of anticoagulants
CPT/HCPCS: 70450; 72192; 74174; 80053; 85025; 93005; 96365; 96366; 96375; 96376; 99285; J2354; Q9967

== ENCOUNTER 2025-05-26 11:29 | Outpatient (CLI) | payer MEDICARE, SELFPAY ==
[2025-05-26 12:14] LABS: Hematocrit 31.4 % (37.0-47.0); Hemoglobin 9.4 g/dL (12.2-16.2); Immature Granulocytes % 6.5 %; Mean Corpuscular HGB Conc 29.9 g/dL (31.8-35.4); Mean Corpuscular Hemoglobin 28.7 pg (27.0-31.2); Mean Corpuscular Volume 96.0 fl (81-99); Nucleated Red Blood Cells % 0 %; Platelet Count 240 K/mm3 (142-424); Red Blood Count 3.27 M/mm3 (4.20-5.40); Red Cell Distribution Width-SD 68.0 fL; White Blood Count 5.6 K/mm3 (4.8-10.8)
[2025-05-26 12:44] LABS: RBC Morphology Normal; Total Cells Counted 100
[2025-05-26 13:23] LABS: Anion Gap 17.1 mEq/L (5-15); Blood Urea Nitrogen 29 mg/dl (7-17); Calcium 9.4 mg/dl (8.4-10.2); Carbon Dioxide 27 mmol/L (22.0-30.0); Chloride 99 mmol/L (98-107); Creatinine,Serum 1.20 mg/dl (0.52-1.04); Estimated Glomerular Filt Rate 43 ml/min (>60); GFR (African American) 52 ML/MIN (>60); Glucose 170 mg/dl (74-100); Potassium 5.1 mmoL/L (3.5-5.1); Sodium 138 mmol/L (136-145)
== END 2025-05-26 23:59 | disposition home or self-care (01) ==
LOC: LAB 11:30
PROVIDERS: PCP Nurse Practitioner Family; Visit Provider Internal Medicine
DX: I25.10 Atherosclerotic heart disease of native coronary artery without angina pectoris (principal); I10 Essential (primary) hypertension; E78.5 Hyperlipidemia, unspecified
CPT/HCPCS: 36415; 80048; 85007; 85025